=== PATIENT | male | born 1985 | race Caucasian/White ===

== ENCOUNTER 2019-11-18 14:23 | Inpatient (IN) | payer SELFPAY ==
[2019-11-18] VITALS (11 sets, daily range): BP systolic 129–162; BP diastolic 89–114; PULSE 76–100; RESP 17–21; TEMP 35.6–36.6; O2SAT 96–99; BMI 25.7
--- NOTE | 2019-11-18 14:50 | ED_ITS ---
HPI - Chest Pain General: Chief Complaint: Chest Pain Stated Complaint: cp Time Seen by Provider: 11/18/19 14:50 History of Present Illness: HPI narrative: pt states he started having severe epigastric and chest pain 4 hours ago while he was waking up from sleep. He states he drank a few shots of etoh this am. states pain is severe and burning and worse with movement. He made himself throw up which helped a little. No cough or fever or chills MD complaint: chest pain Onset (ago): hour(s) (4) Timing of current episode: constant Prior episodes: No Onset: during rest Pain location: substernal and epigastric Pain radiation: none Severity: severe Quality: heaviness and burning Relieving factors: nothing Exacerbating factors: movement Associated symptoms: Reports abdominal pain, nausea and vomiting (self induced); Deny dyspnea or fever(s) Treatment prior to arrival: none Review of Systems General: Reports: 10 or more systems reviewed and unremarkable except in HPI and below Const: Denies: fever, chills or fatigue ENMT: Denies: throat pain Card: Reports: chest pain; Denies: swelling of feet/ankles Resp: Denies: shortness of breath or productive cough GI: Reports: abdominal pain, nausea and vomiting (self induced) Musc: Denies: back pain or extremity swelling Skin/Breast: Denies: rash Neuro: Denies: headache, numbness in extremities or weakness in extremities [facility] ED PFSH: Social History Smoking and tobacco status: current every day smoker Supplemental [facility] Information: states he drinks alcohol daily and had a few shots this am Physical Exam Const: COMMON NORMALS: oriented x3 GENERAL APPEARANCE: cooperative; not in distress HENMT: COMMON NORMALS: normocephalic HEAD & SCALP: normal to inspection and normocephalic MOUTH: oral and palatal mucosa normal and lip normal THROAT: posterior oropharynx normal and tonsils normal Neck/C-Spine: COMMON NORMALS: full ROM, no lymphadenopathy, supple and no meningeal signs GENERAL: Yes normal visual inspection and Yes trachea midline Chest: COMMONS NORMALS: inspection of chest normal Resp: COMMON NORMALS: normal respiratory effort and clear to auscultation bilaterally EFFORT & INSPECTION: Yes able to speak in complete sentences and No respiratory distress AUSCULTATION: clear to auscultation bilaterally, no rales, no rhonchi and no wheezes Cardio: COMMON NORMALS: regular rate, regular rhythm, S1 normal heart sound, S2 normal heart sound and no murmurs RATE: regular rate RHYTHM: regular rhythm HEART SOUNDS: S1 normal and S2 normal PERIPHERAL PULSES: radial pulses present and dorsalis pedis pulses present GI: COMMON NORMALS: soft to palpation INSPECTION: Yes scar (midline (had tip of pancreas and spleen removed from trauma)) AUSCULTATION: Yes hypoactive bowel sounds PALPATION: Yes soft and Yes tender Details: RUQ and other (epigastric) RECTAL EXAM: Yes deferred : COMMON NORMALS: Yes no CVA tenderness BLADDER/KIDNEY EXAM: Yes no CVA tenderness Back/Pelvis: COMMON NORMALS: no CVA tenderness Extremity: COMMON NORMALS: normal to inspection, full ROM, normal capillary refill, no calf tenderness and no pedal edema Neuro: COMMON NORMALS: oriented x3, CN's II-XII intact bilaterally, moves all extremities and no focal motor deficits MENINGEAL SIGNS: Yes no meningeal signs Skin: COMMON NORMALS: no rashes or lesions noted GENERAL SKIN EXAM: no jose eduardo hes or lesions noted Course Vital Signs: Vital signs: Vital Signs Temperature 96.0 F L 11/18/19 14:47 Pulse Rate 80 11/18/19 15:39 Respiratory Rate 17 11/18/19 15:39 Blood Pressure 129/89 11/18/19 15:39 Pulse Oximetry 98 11/18/19 15:39 MDM - Chest Pain MDM Narrative: Medical decision making narrative: Pt has acute alcoholic pancreatitis, it is present on ct but no pseudocyst. His lipase is over 500 and lft's are elevated. I will admit him and keep him npo and will give him more pain meds as he has pain. Paged Dr Swann at [phone]. Dr Swann states she will admit Lab Data: Attestation: I reviewed the patient's lab results. Labs: Lab Results 11/18/19 11/18/19 11/18/19 Range/Units 15:30 15:30 15:30 WBC 13.2 H (4.0-10.0) 10^3/ uL RBC 5.16 (4.1-5.3) 10^6/u L Hgb 16.9 H (11.7-16.6) g/dL Hct 49.7 (42.0-52.0) % MCV 96.3 H (80-94) fL MCH 32.8 (28.0-34.0) pg MCHC 34.0 (30.0-36.0) g/dL RDW 15.6 H (12.1-15.1) % Plt Count 285 (130-400) 10^3/c mm MPV 9.0 (7.4-10.4) fL Neut % (Auto) 78.9 % Lymph % (Auto) 13.3 % [place] % (Auto) 6.9 % Eos % (Auto) 0.0 % Baso % (Auto) 0.4 % Neut # (Auto) 10.4 H (1.8-7.7) 10^3/u L Lymph # (Auto) 1.8 (0.8-4.8) 10^3/u L [place] # (Auto) 0.9 (0.2-0.9) 10^3/u L Eos # (Auto) 0.0 (0.0-0.8) 10^3/u L Baso # (Auto) 0.1 (0.0-0.1) 10^3/u L Nucleated RBC % (a uto) 0 % Nucleated RBCs # 0.0 /100WBC Sodium 142 (136-145) mmol/L Potassium 3.5 (3.5-5.1) mmol/L Chloride 100 (98-107) mmol/L Carbon Dioxide 26 (22-29) mmol/L Anion Gap 19.5 H (5-19) BUN 9 (6-20) mg/dL Creatinine 1.0 (0.7-1.2) mg/dL GFR Calculation 86.1 L (90-130) mL/min Glucose 150 H (65-115) mg/dL Calculated Osmolal ity 293 (285-295) mOsm/k g Calcium 9.5 (8.5-10.5) mg/dL Total Bilirubin 0.3 (0.15-1.2) mg/dL AST 104 H (0-40) U/L ALT 135 H (0-41) U/L Alkaline Phosphata se 122 (40-130) IU/L Troponin T Baselin e 6 (0-15) ng/mL Total Protein 7.7 (6.6-8.7) g/dL Albumin 5.0 (3.5-5.2) g/dL Globulin 2.7 (1.3-4.6) g/dL Lipase (13-60) U/L Ethyl Alcohol 169 H (0-10) mg/dL 11/18/19 Range/Units 15:30 WBC (4.0-10.0) 10^3/ uL RBC (4.1-5.3) 10^6/u L Hgb (11.7-16.6) g/dL Hct (42.0-52.0) % MCV (80-94) fL MCH (28.0-34.0) pg MCHC (30.0-36.0) g/dL RDW (12.1-15.1) % Plt Count (130-400) 10^3/c mm MPV (7.4-10.4) fL Neut % (Auto) % Lymph % (Auto) % [place] % (Auto) % Eos % (Auto) % Baso % (Auto) % Neut # (Auto) (1.8-7.7) 10^3/u L Lymph # (Auto) (0.8-4.8) 10^3/u L [place] # (Auto) (0.2-0.9) 10^3/u L Eos # (Auto) (0.0-0.8) 10^3/u L Baso # (Auto) (0.0-0.1) 10^3/u L Nucleated RBC % (a uto) % Nucleated RBCs # /100WBC Sodium (136-145) mmol/L Potassium (3.5-5.1) mmol/L Chloride (98-107) mmol/L Carbon Dioxide (22-29) mmol/L Anion Gap (5-19) BUN (6-20) mg/dL Creatinine (0.7-1.2) mg/dL GFR Calculation (90-130) mL/min Glucose (65-115) mg/dL Calculated Osmolal ity (285-295) mOsm/k g Calcium (8.5-10.5) mg/dL Total Bilirubin (0.15-1.2) mg/dL AST (0-40) U/L ALT (0-41) U/L Alkaline Phosphata se (40-130) IU/L Troponin T Baselin e (0-15) ng/mL Total Protein (6.6-8.7) g/dL Albumin (3.5-5.2) g/dL Globulin (1.3-4.6) g/dL Lipase 547 H (13-60) U/L Ethyl Alcohol (0-10) mg/dL Imaging Data^: CXR: Radiologist's impression: XRay Report Signed Patient: Elena Hernandez #: [id number] : 1985Acct#:[id number] Age/Sex: 34 / MADM Date: 11/18/19 Loc: ERRoom/Bed: Attending Dr: Ordering Provider/Ordering MD: Michelle Galvez DO Date of Service: 11/18/19 Procedure(s): XR chest 1V portable [id number] Accession Number(s): [id number] Report Number: [id number] WS: [id number] PORTABLE CHEST HISTORY: chest pain COMPARISON: 09/26/2017 Linear subsegmental areas of atelectasis at the lung bases. Otherwise lungs are clear. No pleural effusion or pneumothorax. Cardiac size: Normal. Mediastinum/Aorta: Normal mediastinum. Prior orthopedic fixation RIGHT clavicle. XR/XR chest 1V portable [id number] IMPRESSION: Unremarkable portable chest. Dictated By:Patricia Dove DO Signed By:Patricia Dove DOSigned Date/Time:11/18/[address] Abd/Pel: Radiologist's impression: CT Scan Report Signed Patient: Elena Hernandez #: [id number] : 1985Acct#:[id number] Age/Sex: 34 / MADM Date: 11/18/19 Loc: ERRoom/Bed: Attending Dr: Ordering Provider/Ordering MD: Michelle Galvez DO Date of Service: 11/18/19 Procedure(s): CT abdomen pelvis w con* [id number] Accession Number(s): [id number] Report Number: [id number] WS: [id number] CT ABDOMEN AND PELVIS WITH CONTRAST HISTORY: Abdominal pain and epigastric pain with nausea. TECHNIQUE: Imaging performed of the abdomen and pelvis with IV contrast. Single phase imaging of the abdomen. Coronal and sagittal reformats are submitted. All CT scans at [facility] use at least one of these dose optimization techniques: automated exposure control; mA and/or kV adjustment per patient size (includes targeted exams where dose is matched to clinical indication); or iterative reconstruction. IV CONTRAST: Omnipaque 300; 95 mL IV. Oral contrast: No DLP: 593.8 mGy.cm COMPARISON: 05/02/2017 Lower thorax: Lung bases are clear. Heart is normal size. No hiatal hernia. Liver/biliary system: Mild enlargement and hepatic steatosis. There is a small amount of perihepatic fluid. Portal vein is patent. No mass or biliary dilatation. Gallbladder: Normal. No gallstones or wall thickening. No pericholecystic fluid. Pancreas: Pancreas is enlarged and edematous. There is peripancreatic fluid and edema. No focal collection or pseudocyst or abscess. Surgical sutures near the distal pancreas. Spleen: Prior splenectomy. Adrenal glands: Normal. Right kidney: Normal. Left kidney: Normal. Aorta: Normal. Lymphadenopathy: None. Free fluid: There is a small amount of perihepatic ascites. Small amount of fluid surrounding the pancreas and within the lesser curvature of the stomach. There is mesenteric edema and stranding. GI tract: Prior appendectomy. No GI tract obstruction. Abdominal wall: Unremarkable abdominal wall. No hernia. Pelvis: Normal. Bones: Straightening of the normal lumbar lordosis. No osteoblastic or osteolytic bone disease. CT/CT abdomen pelvis w con* [id number] IMPRESSION: 1. Acute pancreatitis with a small amount of peripancreatic fluid and edema. No abscess or pseudocyst. 2. Perihepatic free fluid, small amount. 3. Hepatic steatosis and hepatomegaly. 4. Prior appendectomy. 5. Prior splenectomy. Dictated By:Patricia Dove DO Signed By:Patricia Dove DOSigned Date/Time:11/18/19 2076 EKG Data^: EKG 1: Attestation: I personally reviewed and interpreted this EKG as follows: EKG interpretation time: 15:18 Interpretation: nsr, rate 79, normal st segments Discharge Plan Discharge Clinical Impression: Elevated transaminase level Pancreatitis, alcoholic, acute Qualifiers: Acute pancreatitis complication: no infection or necrosis Qualified Code(s): K85.20 - Alcohol induced acute pancreatitis without necrosis or infection Condition: Stable Prescriptions: No Action No Known Home Medications RF: 0 Referrals: Mahamed Sales MD [Family Provider] - Coding Level of Care Code ED 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
--- NOTE | 2019-11-18 15:10 | ECG_ITS ---
Measurements Intervals [place] Rate: 97 P: 68 TX: 140 QRS: 77 QRSD: 105 T: 38 QT: 352 QTc: 449 SINUS RHYTHM Compared to ECG 09/26/2017 14:57:40 Sinus tachycardia no longer present Intraventricular conduction delay no longer present T-wave abnormality no longer present Electronically Signed On 11-18-2019 18:25:57 CDT by Shirley Pritchard M.D. [id number] f
--- NOTE | 2019-11-18 15:10 | XR_ITS ---
WS: [id number] PORTABLE CHEST HISTORY: chest pain COMPARISON: 09/26/2017 Linear subsegmental areas of atelectasis at the lung bases. Otherwise lungs are clear. No pleural eff usion or pneumothorax. Cardiac size: Normal. Mediastinum/Aorta: Normal mediastinum. Prior orthopedic fixation RIGHT clavicle. XR/XR chest 1V portable [id number] IMPRESSION: Unremarkable portable chest.
--- NOTE | 2019-11-18 15:11 | CT_ITS ---
WS: [id number] CT ABDOMEN AND PELVIS WITH CONTRAST HISTORY: Abdominal pain and epigastric pain with nausea. TECHNIQUE: Imaging performed of the abdomen and pelvis with IV contrast. Single phase imaging of the abdomen. Coronal and sagittal reformats are submitted. All CT scans at [facility] use at least one of these dose optimization techniques: automated exposure control; mA and/or kV adjustment per patient size (includes targeted exams where dose is matched to clinical indication); or iterativ e reconstruction. IV CONTRAST: Omnipaque 300; 95 mL IV. Oral contrast: No DLP: 593.8 mGy.cm COMPARISON: 05/02/2017 Lower thorax: Lung bases are clear. Heart is normal size. No hiatal hernia. Liver/biliary system: Mild enlargement and hepatic steatosis. There is a small amount of perihepatic fluid. Portal vein is patent. No mass or biliary dilatation. Gallbladder: Normal. No gallstones or wall thickening. No pericholecystic fluid. Pancreas: Pancreas is enlarged and edematous. There is peripancreatic fluid and edema. No focal colle ction or pseudocyst or abscess. Surgical sutures near the distal pancreas. Spleen: Prior splenectomy. Adrenal glands: Normal. Right kidney: Normal. Left kidney: Normal. Aorta: Normal. Lymphadenopathy: None. Free fluid: There is a small amount of perihepatic ascites. Small amount of fluid surrounding the guy creas and within the lesser curvature of the stomach. There is mesenteric edema and stranding. GI tract: Prior appendectomy. No GI tract obstruction. Abdominal wall: Unremarkable abdominal wall. No hernia. Pelvis: Normal. Bones: Straightening of the normal lumbar lordosis. No osteoblastic or osteolytic bone disease. CT/CT abdomen pelvis w con* [id number] IMPRESSION: 1. Acute pancreatitis with a small amount of peripancreatic fluid and edema. N o abscess or pseudocyst. 2. Perihepatic free fluid, small amount. 3. Hepatic steatosis and hepatomegaly. 4. Prior appendectomy. 5. Prior splenectomy.
[2019-11-18] MEDS: morphine 4 mg/mL SDV 1 mL IVP ×2 (15:22→18:04)
[2019-11-18] MEDS: nitroglycerin 1 gm/inch oint Pkt 1 INCH TOPICAL (15:25)
[2019-11-18] MEDS: ondansetron 2 mg/ML SDV 2 mL 4 MG IVP ×2 (15:25→21:42)
[2019-11-18] MEDS: sodium chloride 0.9% 1,000 ML 999 ML IV ×2 (15:30→18:05)
[2019-11-18 15:36] LABS: Basophils # 0.1 10^3/uL (0.0-0.1); Basophils % 0.4 %; Hematocrit 49.7 % (42.0-52.0); Hemoglobin 16.9 g/dL (11.7-16.6); Lymphocytes # 1.8 10^3/uL (0.8-4.8); Lymphocytes % 13.3 %; Mean Corpuscular Hemoglobin 32.8 pg (28.0-34.0); Mean Corpuscular Volume 96.3 fL (80-94); Monocytes # 0.9 10^3/uL (0.2-0.9); Monocytes % 6.9 %; Neutrophils # 10.4 10^3/uL (1.8-7.7); Neutrophils % 78.9 %; Nucleated Red Blood Cells % 0 %; Platelet Count 285 10^3/cmm (130-400); Red Blood Count 5.16 10^6/uL (4.1-5.3); Red Cell Distribution Width 15.6 % (12.1-15.1); White Blood Count 13.2 10^3/uL (4.0-10.0)
[2019-11-18 15:52] LABS: Alanine Aminotransferase 135 U/L (0-41); Alcohol Level 169 mg/dL (0-10); Alkaline Phosphatase 122 IU/L (40-130); Anion Gap 19.5 (5-19); Aspartate Amino Transferase 104 U/L (0-40); Blood Urea Nitrogen 9 mg/dL (6-20); Calcium 9.5 mg/dL (8.5-10.5); Carbon Dioxide 26 mmol/L (22-29); Chloride 100 mmol/L (98-107); Globulin 2.7 g/dL (1.3-4.6); Glomerular Filtration Rate 86.1 mL/min (90-130); Glucose 150 mg/dL (65-115); Osmolality Calculated 293 mOsm/kg (285-295); Potassium 3.5 mmol/L (3.5-5.1); Sodium 142 mmol/L (136-145); Total Bilirubin 0.3 mg/dL (0.15-1.2); Total Protein 7.7 g/dL (6.6-8.7)
[2019-11-18 15:53] LABS: Troponin(5th) Baseline 6 ng/mL (0-15)
[2019-11-18] MEDS: iohexol 300 mg/mL 100 mL Btl IV (15:54)
[2019-11-18] MEDS: lidocaine 2% viscous 15 ML, aluminum-mag hydrox-simethicon 30 ML, sucralfate oral liq 1 GM PO (16:35)
--- NOTE | 2019-11-18 17:10 | ECG_ITS ---
Measurements Intervals [place] Rate: 82 P: 59 IA: 147 QRS: 80 QRSD: 91 T: 53 QT: 371 QTc: 433 SINUS RHYTHM Compared to ECG 09/26/2017 14:57:40 Sinus tachycardia no longer present Intraventricular conduction delay no longer present T-wave abnormality no longer present Electronically Signed On 11-18-2019 18:27:52 CDT by Shirley Pritchard M.D. [id number] f
[2019-11-18 17:25] LABS: Lipase 547 U/L (13-60)
[2019-11-18 18:01] LABS: Troponin 5 2HR Delta 0 ABS# (0-10)
--- NOTE | 2019-11-18 18:23 | PC.NURSE ---
Nitro patch removed from left chest.
--- NOTE | 2019-11-18 19:55 | PM.HP ---
Providers/Chief Complaint Admitting Physician: Savana Swann MD Chief Complaint: cp History of Present Illness Elena Hernandez is a 34 year old male with a past medical history of alcohol abuse, alcohol withdrawal, alcohol withdrawal seizures, illicit drug abuse in the past, history of suicide attempt in the past, posttraumatic stress disease, history of fall from several stories in 2017 status post exploratory laparotomy, history of splenectomy, history of multiple fractures including cervical, thoracic, lumbar rib fractures associated with his fall many years ago who presents to the emergency room due to complaints of anterior chest pain and epigastric pain. 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 He reports nausea, he self-induced vomiting to feel better, last bowel movement was yesterday, denies falls, denies trauma, denies bloody stools, denies hemoptysis. Patient states that he drinks 1 to 2 pints of peppermint schnapps, or sour whiskey on a daily basis, has a history of alcohol withdrawal in the past, has a history of alcohol withdrawal seizures, has never been intubated in the past for alcohol withdrawal, has never had delirium tremens. Patient currently denies tremors, denies anxiety, denies palpitations, denies sweats, denies visual hallucinations, denies auditory hallucinations, denies tactile hallucinations, denies falls, denies injuries, denies headaches, denies blurry vision, denies suicidal ideation, denies homicidal ideation. When asked why does he drink a lot of alcohol, patient states that he has PTSD from his fall 2017, he was on medications, but he stopped taking them, and he lost his insurance and, cannot afford medications. Denies a history of pancreatitis in the past, denies any recent trauma, denies any recent steroid use, denies any history of cholelithiasis or right, right upper quadrant pain. Has a history of splenectomy, denies fevers, cough, shortness of breath, dysuria. Review of Systems Const: Denies: fever, chills, fatigue or malaise Eyes: Denies: change in vision or blurry vision ENMT: Denies: nasal congestion Card: Reports: chest pain Resp: Denies: shortness of breath, productive cough, non-productive cough or wheezing GI: Reports: abdominal pain and nausea; Denies: vomiting, vomiting blood, diarrhea, constipation, blood in stool or black tarry stool : Denies: flank pain, difficulty urinating, painful urination or urinary frequency Musc: Denies: neck pain or back pain Skin/Breast: Denies: rash Neuro: Denies: headache, dizziness or vertigo Psych: Denies: anxiety, depression, panic attacks, irritability, visual hallucinations, auditory hallucinations, tactile hallucinations, suicidal ideation or homicidal ideation Endo: Denies: excessive urination or excessive thirst Medications/Allergies Home Medications Medication Instructions Recorded Confirmed Last Taken Type No Known Home Medications 11/18/19 11/18/19 Unknown History Allergies Allergy/AdvReac Type Severity Reaction Status Date / Time No Known Allergies Allergy Verified 11/18/19 14:49 PFSH Acute PFSH: Medical History (Updated 11/18/19 @ 20:06 by Kaleb Juarez MD) C2 cervical fracture C7 cervical fracture History of suicide attempt L4 vertebral fracture Polysubstance abuse Surgical History (Updated 11/18/19 @ 20:10 by Kaleb Juarez MD) History of appendectomy History of splenectomy Family History (Updated 11/18/19 @ 20:06 by Kaleb Juarez MD) Other Diabetes Social History (Updated 11/18/19 @ 20:06 by Kaleb Juarez MD) Smoking and tobacco status: current every day smoker Alcohol intake: current Substance/Drug Use: former Vitals/I&O/Wt Last Vital Signs Temp 97.4 F L 11/18/19 18:33 Pulse 92 11/18/19 18:33 Resp 18 11/18/19 18:33 BP 162/110 11/18/19 18:33 Pulse Ox 97 11/18/19 18:33 11/18/19 11/18/19 11/18/19 06:59 14:59 22:59 Intake Total 1000 / 1000 Balance 1000 / 1000 Weight last 48 hrs Weight 83.915 kg Physical Exam Const: COMMON NORMALS: no apparent distress and oriented x3 GENERAL APPEARANCE: cooperative and comfortable HENMT: COMMON NORMALS: normocephalic HEAD & SCALP: normocephalic Eye: COMMON NORMALS: PERRL, EOMs intact bilaterally and no papilledema GENERAL EYE: normal appearance of both eyes PUPIL: Yes PERRL DIRECT OPHTHALMOSCOPY: Yes no papilledema Neck/C-Spine: COMMON NORMALS: full ROM, no lymphadenopathy, no JVD and thyroid normal THYROID: thyroid normal Lymph: LYMPHATIC: no lymphadenopathy noted Resp: COMMON NORMALS: normal respiratory effort, no retractions, no use of accessory muscles and clear to auscultation bilaterally AUSCULTATION: clear to auscultation bilaterally Cardio: COMMON NORMALS: no JVD, regular rate, regular rhythm, S1 normal heart sound, S2 normal heart sound, no gallops, no clicks and no murmurs RATE: regular rate RHYTHM: regular rhythm HEART SOUNDS: S1 normal and S2 normal GI: INSPECTION: Yes normal to inspection AUSCULTATION: Yes normoactive bowel sounds PALPATION: Yes soft, Yes tender, No guarding, No rigid and Yes no hepatosplenomegaly PERCUSSION: normal to percussion Extremity: COMMON NORMALS: normal to inspection, full ROM and no pedal edema Neuro: COMMON NORMALS: oriented x3, CN's II-XII intact bilaterally, moves all extremities and no focal motor deficits Psych: COMMON NORMALS: mental status grossly normal, thought process normal and cooperative THOUGHT PROCESS: normal thought process Data : 11/18/19 15:30 11/18/19 15:30 A&P Assessment and plan (1) Pancreatitis, alcoholic, acute: -Related to alcohol use -White blood cell count 13.2, neutrophilic 10.4, likely related to alcohol use -Blood glucose level 150, will check hemoglobin A1c, but likely related to pancreatitis -AST 104, ALT 135, lipase 547, ethanol 169 Plan: -Serial abdominal exams -Monitor electrolytes -Start on clear liquid diet -IV fluids, normal saline 100 cc an hour Status: Acute Qualifiers: Acute pancreatitis complication: no infection or necrosis Qualified Code(s): K85.20 - Alcohol induced acute pancreatitis without necrosis or infection (2) Elevated transaminase level: -AST 104, ALT 135, likely H=to alcohol use Status: Acute (3) PTSD (post-traumatic stress disorder): -Patient states that he does not want to take medications right now for his PTSD -He is open to having psychiatry see him, will likely have psychiatry see him tomorrow morning Status: Acute (4) Alcohol abuse: -Blood alcohol level 169 -Has a history of alcohol withdrawal, alcohol withdrawal seizures Plan: -MILTON's protocol -Last drink was 6 AM, monitor for the next every 2 hours -Monitor blood pressures, monitor heart rate, monitor for withdrawal seizures, seizure precautions, neuro checks -Banana bag, thiamine, folic acid Status: Acute (5) History of splenectomy: -Monitor for fevers, if so start him on antibiotic therapy Status: Acute Attestations Medical Necessity Statement*: Patient requires hospitalization, greater than 2 midnights, for alcoholic pancreatitis, transaminitis, alcohol abuse, concern for alcohol withdrawal Coding Level of Care Code Acute Buttermaker Continuous Churn for nancy Avery Diagnoses Pancreatitis, alcoholic, acute K85.20 Acute pancreatitis complication: no infection or necrosis Elevated transaminase level R74.0 PTSD (post-traumatic stress disorder) F43.10 Alcohol abuse F10.10 History of splenectomy Z90.81
[2019-11-18] MEDS: morphine 4 mg/mL SDV 1 mL 2 MG IVP (20:22)
[2019-11-18 20:56] LABS: Estmated Average Glucose 108; Hemoglobin A1C 5.4 % (4.0-6.0)
--- NOTE | 2019-11-18 21:10 | ECG_ITS ---
Measurements Intervals [place] Rate: 81 P: 54 MA: 137 QRS: 74 QRSD: 92 T: 38 QT: 353 QTc: 412 SINUS RHYTHM Compared to ECG 11/18/2019 17:37:03 No significant changes Electronically Signed On 11-19-2019 14:05:37 CDT by Zoe Bojorquez M.D. [id number]
[2019-11-18] MEDS: folic acid 1 MG, multivitamin inj 10 ML, thiamine 100 MG in sodium chloride 0.9% 1,000 ML 252.8 MG IV (21:22)
[2019-11-18] MEDS: sodium chloride 0.9% 1,000 ML 100 ML IV (21:24)
[2019-11-18] MEDS: enoxaparin 40 mg/0.4 mL Syringe SUBCUT (21:24)
[2019-11-18 21:58] LABS: Troponin 5 6HR Delta 0 ng/L (0-12)
[2019-11-18] MEDS: LORazepam 2 mg/mL INJ 1 mL IM (22:08)
[2019-11-18 22:09] LABS: C Reactive Protein 1.4 mg/L (0.0-4.9)
[2019-11-18 22:48] LABS: Add Urine Microscopic? YES; Bacteria Urine 1+; Bilirubin Urine Neg (NEGATIVE); Blood Urine Neg (Negative); Glucose Urine UA Norm (Normal); Ketones Urine Negative (Negative); Leukocyte Esterase Urine Negative (Negative); Mucus Urine 2+; Nitrate Urine Negative (Negative); Protein Urine 1+ (Negative); RBC Urine RARE /hpf (0-2); Squamous Epithelial Cell Urine RARE (0-5); Urine Appearance Clear (CLEAR); Urine Color Yellow (Yellow); Urobilinogen Urine Norm (Negative); WBC Urine RARE /hpf (0-5); pH Urine 5 (5-7)
[2019-11-19] VITALS (14 sets, daily range): BP systolic 133–169; BP diastolic 72–111; PULSE 80–102; RESP 16–20; TEMP 36.7–36.9; O2SAT 95–99
[2019-11-19] MEDS: morphine 4 mg/mL SDV 1 mL 2 MG IVP ×7 (00:31→21:27)
[2019-11-19] MEDS: ondansetron 2 mg/ML SDV 2 mL 4 MG IVP ×2 (00:32→08:59)
[2019-11-19 05:08] LABS: Basophils % 0.3 %; Eosinophils % 0.1 %; Hematocrit 45.2 % (42.0-52.0); Hemoglobin 15.2 g/dL (11.7-16.6); Lymphocytes # 1.7 10^3/uL (0.8-4.8); Lymphocytes % 15.3 %; Mean Corpuscular HGB Conc 33.6 g/dL (30.0-36.0); Mean Corpuscular Hemoglobin 32.3 pg (28.0-34.0); Mean Corpuscular Volume 96.2 fL (80-94); Mean Platelet Volume 9.1 fL (7.4-10.4); Neutrophils # 8.5 10^3/uL (1.8-7.7); Nucleated Red Blood Cells % 0 %; Platelet Count 250 10^3/cmm (130-400); Red Cell Distribution Width 15.3 % (12.1-15.1); White Blood Count 11.3 10^3/uL (4.0-10.0)
[2019-11-19 05:27] LABS: Alanine Aminotransferase 84 U/L (0-41); Albumin Level 3.8 g/dL (3.5-5.2); Alkaline Phosphatase 105 IU/L (40-130); Anion Gap 12.8 (5-19); Aspartate Amino Transferase 45 U/L (0-40); Blood Urea Nitrogen 7 mg/dL (6-20); Calcium 8.7 mg/dL (8.5-10.5); Carbon Dioxide 28 mmol/L (22-29); Chloride 99 mmol/L (98-107); Globulin 2.5 g/dL (1.3-4.6); Glomerular Filtration Rate 129.9 mL/min (90-130); Glucose 132 mg/dL (65-115); Magnesium 1.4 mg/dL (1.7-2.3); Osmolality Calculated 280 mOsm/kg (285-295); Phosphorus 2.7 mg/dL (2.5-4.5); Potassium 3.8 mmol/L (3.5-5.1); Sodium 136 mmol/L (136-145); Total Bilirubin 0.8 mg/dL (0.15-1.2); Total Protein 6.3 g/dL (6.6-8.7)
[2019-11-19] MEDS: multivitamin therapeutic Tablet 1 TAB PO (09:04)
[2019-11-19] MEDS: thiamine 100 mg Tablet PO (09:04)
[2019-11-19] MEDS: folic acid 1 mg Tablet PO (09:04)
--- NOTE | 2019-11-19 09:46 | P.PN_ITS ---
Subjective Subjective: Interval history: Elena reports his abdomen still hurts, and he is still nauseated. He denies any homicidal or suicidal ideation. He reports he has medicine at home for depression, but he does not take it as he does not want to. He knows alcohol is impacting his health greatly. Medications: Reviewed: Yes Vitals/I&O/Wt Last Vital Signs Temp 98.4 F 11/19/19 07:48 Pulse 96 11/19/19 09:20 Resp 18 11/19/19 09:03 BP 146/101 11/19/19 07:48 Pulse Ox 96 11/19/19 09:20 11/18/19 11/19/19 11/19/19 22:59 06:59 14:59 Intake Total 1003.333 / 1003.333 0 / 1003.333 Output Total 150 / 150 300 / 450 400 / 400 Balance 853.333 / 853.333 -300 / 553.333 -400 / -400 Weight last 48 hrs Weight 83.915 kg Physical Exam Narrative: EXAM NARRATIVE: General exam is a sleepy white male in no apparent distress Cardiovascular regular rate and rhythm without murmur Lungs clear Abdomen is soft, tenderness noted in the epigastric area. Positive bowel sounds. Large scar noted Extremities no cyanosis clubbing or edema. Data : 11/19/19 04:50 11/19/19 04:50 A&P Assessment and plan (1) Pancreatitis, alcoholic, acute: Change to n.p.o. as patient reports still with significant pain, nausea. Continue fluids, increase slightly Pain control with morphine Repeat laboratory tomorrow Status: Acute Qualifiers: Acute pancreatitis complication: no infection or necrosis Qualified Code(s): K85.20 - Alcohol induced acute pancreatitis without necrosis or infection (2) Elevated transaminase level: Likely secondary to alcohol use. Check hepatitis panel. Status: Acute (3) PTSD (post-traumatic stress disorder): No homicidal or suicidal ideation. Does not want psychiatry to visit with him currently. Does not want to take any medications for his condition. Status: Acute (4) Alcohol abuse: Alcohol withdrawal precautions [facility] protocol Continue thiamine, folate Status: Acute (5) History of splenectomy: Status: Acute Attestations Medical Necessity Statement*: Needs continued hospital stay for supportive care secondary to alcohol induced pancreatitis. Coding Level of Care Code Acute Educational Resource Coordinator for [facility] Fwd Diagnoses Pancreatitis, alcoholic, acute K85.20 Acute pancreatitis complication: no infection or necrosis Elevated transaminase level R74.0 PTSD (post-traumatic stress disorder) F43.10 Alcohol abuse F10.10 History of splenectomy Z90.81
[2019-11-19 10:01] LABS: Lipase 296 U/L (13-60)
[2019-11-19] MEDS: magnesium sulfate premix 2 GM/50 ML PIGGYBACK IV (10:22)
[2019-11-19 11:11] LABS: Hepatitis A Antibody IgM. Non-Reactive (Nonreactive); Hepatitis B Core IgM Non-Reactive (Nonreactive); Hepatitis B Surface Antigen. Non-Reactive (Nonreactive); Hepatitis C Virus Antibody Non-Reactive (Nonreactive)
[2019-11-19] MEDS: sodium chloride 0.9% 1,000 ML 100 ML IV ×2 (11:39→20:56)
--- NOTE | 2019-11-19 14:32 | PC.CHAP ---
Pastoral Care Encounter/Spiritual Assessment Type of Contact [] Declined ethologist visit [] Patient/Family/Request visit [] Outpatient visit [] Follow-up visit [] Physician referral [] Code/Alert [] Routine visit [] Staff referral [] Actively dying [X] Patient sleeping [] Family support [] [] Out of room [] Palliative care [] [] Receiving care in room [] Pre-surgical visit [] Trauma [] Long length of stay [] ICU visit [] Other: Relational/Emotional Strength [] Patient feels connected with others/family/visitors/staff [] Distress [] Loneliness/isolation [] Abandonment Spirituality of Patient [] Person of Mary Lou [] Attends Sikh of their Mary Lou [] Believes in Prayer [] Reads Bible or Restoration materials [] There are Spiritual issues to be addressed Car Cleaner Interventions [] Prayer [] Active listening [] Non-anxious presence [] Spiritual/emotional support [] Crisis/trauma care [] Spiritual counseling [] Bereavement support [] Provided bereavement packet [] Provided Bible/devotional materials [] Provided toy/stuffed animal, coloring book to patient or family member [] Provided Communion [] Anointing/[place] [] Salvation [] Completed spiritual assessment [] Other: Impact on Illness or Injury [] Angry [] Fearful [] Anxious [] Often cries [] Exhaustion [] Unable to work [] Unable to attend sikhism [] Unable to walk/stand [] Unable to read [] Unable to drive [] Unable to eat/drink [] Unable to sleep [] Unable to be with family [] Patient intubated [] Other: Summary FOLLOW UP Time spent with patient
[2019-11-19] MEDS: LORazepam 2 mg/mL INJ 1 mL 1 MG IVP (15:57)
--- NOTE | 2019-11-19 20:13 | USR_ITS ---
PROCEDURE INFORMATION: Exam: US Abdomen Limited, Right Upper Quadrant Exam date and time: 11/19/2019 9:07 AM Age: 34 years old Clinical indication: Abdominal pain; Generalized; Additional info: Hepatic steatosis TECHNIQUE: Imaging protocol: Real-time ultrasound of the abdomen with image documentation. Examination was focused on the right upper quadrant. COMPARISON: US abdomen limited [id number] 03/26/2017 11:18 PM FINDINGS: Liver: No focal hepatic mass. Gallbladder: Low level echoes in the gallbladder believed be artifactual. No shadowing calculi, wall edema, or pericholecystic fluid. Technologist reported negative sonographic Hayes sign. Common bile duct: Normal caliber of the incompletely visualized common bile duct measuring 3 mm in diameter. Pancreas: Obscuration of the pancreas by bowel gas. Right kidney: Normal right renal morphology. No hydronephrosis. Inferior vena cava: Unremarkable IVC. Intraperitoneal space: Intraperitoneal fluid . US/US liver [id number] IMPRESSION: Intraperitoneal fluid .
[2019-11-19] MEDS: enoxaparin 40 mg/0.4 mL Syringe SUBCUT (20:56)
[2019-11-20] VITALS (11 sets, daily range): BP systolic 131–167; BP diastolic 72–99; PULSE 83–109; RESP 17–20; TEMP 36.6–37.9; O2SAT 96–98
[2019-11-20] MEDS: morphine 4 mg/mL SDV 1 mL 2 MG IVP ×5 (03:25→22:24)
[2019-11-20] MEDS: sodium chloride 0.9% 1,000 ML 100 ML IV ×2 (03:30→12:38)
[2019-11-20 05:12] LABS: Basophils % 0.2 %; Eosinophils % 0.1 %; Hematocrit 43.6 % (42.0-52.0); Lymphocytes # 1.9 10^3/uL (0.8-4.8); Lymphocytes % 10.7 %; Mean Corpuscular HGB Conc 34.4 g/dL (30.0-36.0); Mean Corpuscular Hemoglobin 33.9 pg (28.0-34.0); Mean Corpuscular Volume 98.4 fL (80-94); Mean Platelet Volume 9.5 fL (7.4-10.4); Monocytes # 1.1 10^3/uL (0.2-0.9); Monocytes % 6.3 %; Neutrophils # 14.4 10^3/uL (1.8-7.7); Neutrophils % 81.8 %; Nucleated Red Blood Cells % 0 %; Platelet Count 226 10^3/cmm (130-400); Red Blood Count 4.43 10^6/uL (4.1-5.3); Red Cell Distribution Width 15.1 % (12.1-15.1); White Blood Count 17.5 10^3/uL (4.0-10.0)
[2019-11-20 05:33] LABS: Alanine Aminotransferase 56 U/L (0-41); Albumin Level 3.5 g/dL (3.5-5.2); Alkaline Phosphatase 97 IU/L (40-130); Aspartate Amino Transferase 29 U/L (0-40); Blood Urea Nitrogen 6 mg/dL (6-20); Carbon Dioxide 23 mmol/L (22-29); Chloride 98 mmol/L (98-107); Glomerular Filtration Rate 111.3 mL/min (90-130); Glucose 98 mg/dL (65-115); Magnesium 1.8 mg/dL (1.7-2.3); Osmolality Calculated 274 mOsm/kg (285-295); Sodium 134 mmol/L (136-145); Total Bilirubin 0.9 mg/dL (0.15-1.2); Total Protein 6.5 g/dL (6.6-8.7)
[2019-11-20 05:37] LABS: Lipase 110 U/L (13-60)
[2019-11-20] MEDS: multivitamin therapeutic Tablet 1 TAB PO (08:19)
[2019-11-20] MEDS: thiamine 100 mg Tablet PO (08:19)
[2019-11-20] MEDS: folic acid 1 mg Tablet PO (08:19)
--- NOTE | 2019-11-20 09:03 | P.PN_ITS ---
Subjective Subjective: Interval history: Elena reports he feels little bit better. Abdomen is still quite tender. Would like to try some liquids. Not nauseated anymore. Medications: Reviewed: Yes Vitals/I&O/Wt Last Vital Signs Temp 98.9 F 11/20/19 07:57 Pulse 109 H 11/20/19 07:57 Resp 20 H 11/20/19 08:18 BP 131/78 11/20/19 07:57 Pulse Ox 98 11/20/19 07:57 11/19/19 11/20/19 11/20/19 22:59 06:59 14:59 Intake Total 928.333 / 1883.333 656.667 / 2540.000 350 / 350 Output Total 1050 / 2350 800 / 3150 300 / 300 Balance -121.667 / -466.667 -143.333 / -610.000 50 / 50 Weight last 48 hrs Weight 83.915 kg Physical Exam Narrative: EXAM NARRATIVE: General exam is a sleepy white male in no apparent distress Cardiovascular regular rate and rhythm without murmur Lungs clear Abdomen is soft, tenderness noted in the epigastric area. Positive bowel sounds. Large scar noted Extremities no cyanosis clubbing or edema. Data : 11/20/19 04:52 11/20/19 04:52 A&P Assessment and plan (1) Pancreatitis, alcoholic, acute: Start clear liquids Change morphine to every 4 hours as needed Lipase improved Status: Acute Qualifiers: Acute pancreatitis complication: no infection or necrosis Qualified Cod e(s): K85.20 - Alcohol induced acute pancreatitis without necrosis or infection (2) Elevated transaminase level: Likely secondary to alcohol use. Hepatitis panel negative Transaminitis level decreasing Status: Acute (3) PTSD (post-traumatic stress disorder): No homicidal or suicidal ideation. Does not want psychiatry to visit with him currently. Does not want to take any medications for his condition. Status: Acute (4) Alcohol abuse: Alcohol withdrawal precautions [facility] protocol Continue thiamine, folate Status: Acute (5) History of splenectomy: Status: Acute Attestations Medical Necessity Statement*: Needs continued hospitalization for close monitoring secondary to acute pancreatitis with previous inability to take p.o. secondary to recalcitrant nausea. Coding Level of Care Code Acute Web Ui Developer for [facility]o Avery Diagnoses Pancreatitis, alcoholic, acute K85.20 Acute pancreatitis complication: no infection or necrosis Elevated transaminase level R74.0 PTSD (post-traumatic stress disorder) F43.10 Alcohol abuse F10.10 History of splenectomy Z90.81
[2019-11-20] MEDS: ondansetron 2 mg/ML SDV 2 mL 4 MG IVP (16:10)
[2019-11-20] MEDS: enoxaparin 40 mg/0.4 mL Syringe SUBCUT (22:25)
[2019-11-21] VITALS (11 sets, daily range): BP systolic 130–151; BP diastolic 77–106; PULSE 72–104; RESP 17–20; TEMP 36.7–37.2; O2SAT 96–99
[2019-11-21] MEDS: sodium chloride 0.9% 1,000 ML 100 ML IV ×3 (02:24→17:16)
[2019-11-21 06:20] LABS: Basophils % 0.1 %; Eosinophils # 0.1 10^3/uL (0.0-0.8); Eosinophils % 0.7 %; Hemoglobin 14.3 g/dL (11.7-16.6); Lymphocytes # 2.8 10^3/uL (0.8-4.8); Lymphocytes % 17.3 %; Mean Corpuscular Hemoglobin 33.1 pg (28.0-34.0); Mean Corpuscular Volume 97.2 fL (80-94); Mean Platelet Volume 9.8 fL (7.4-10.4); Monocytes # 1.1 10^3/uL (0.2-0.9); Monocytes % 6.8 %; Neutrophils # 11.9 10^3/uL (1.8-7.7); Neutrophils % 74.7 %; Nucleated Red Blood Cells % 0 %; Platelet Count 222 10^3/cmm (130-400); Red Blood Count 4.32 10^6/uL (4.1-5.3); Red Cell Distribution Width 14.9 % (12.1-15.1)
[2019-11-21 06:36] LABS: Lipase 28 U/L (13-60)
[2019-11-21 06:41] LABS: Alanine Aminotransferase 42 U/L (0-41); Albumin Level 3.7 g/dL (3.5-5.2); Alkaline Phosphatase 99 IU/L (40-130); Anion Gap 17.9 (5-19); Aspartate Amino Transferase 22 U/L (0-40); Blood Urea Nitrogen 6 mg/dL (6-20); Calcium 9.4 mg/dL (8.5-10.5); Carbon Dioxide 25 mmol/L (22-29); Chloride 98 mmol/L (98-107); Globulin 3.4 g/dL (1.3-4.6); Glomerular Filtration Rate 129.9 mL/min (90-130); Glucose 95 mg/dL (65-115); Magnesium 2.2 mg/dL (1.7-2.3); Osmolality Calculated 280 mOsm/kg (285-295); Phosphorus 2.2 mg/dL (2.5-4.5); Potassium 3.9 mmol/L (3.5-5.1); Sodium 137 mmol/L (136-145); Total Bilirubin 0.6 mg/dL (0.15-1.2); Total Protein 7.1 g/dL (6.6-8.7)
[2019-11-21] MEDS: morphine 4 mg/mL SDV 1 mL 2 MG IVP ×3 (07:50→17:20)
[2019-11-21] MEDS: multivitamin therapeutic Tablet 1 TAB PO (07:51)
[2019-11-21] MEDS: thiamine 100 mg Tablet PO (07:51)
[2019-11-21] MEDS: folic acid 1 mg Tablet PO (07:51)
--- NOTE | 2019-11-21 09:54 | PC.CHAP ---
Pastoral Care Encounter/Spiritual Assessment Type of Contact [] Declined cheese cook visit [] Patient/Family/Request visit [] Outpatient visit [x] Follow-up visit [] Physician referral [] Code/Alert [] Routine visit [] Staff referral [] Actively dying [] Patient sleeping [] Family support [] [] Out of room [] Palliative care [] [] Receiving care in room [] Pre-surgical visit [] Trauma [] Long length of stay [] ICU visit [] Other: Relational/Emotional Strength [] Patient feels connected with others/family/visitors/staff [] Distress [] Loneliness/isolation [] Abandonment Spirituality of Patient [] Person of Mary Lou [] Attends Jehovah'S Witness of their Mary Lou [x] Believes in Prayer [] Reads Bible or Alevism materials [] There are Spiritual issues to be addressed Shoe Polisher Interventions [x] Prayer [] Active listening [] Non-anxious presence [] Spiritual/emotional support [] Crisis/trauma care [] Spiritual counseling [] Bereavement support [] Provided bereavement packet [] Provided Bible/devotional materials [] Provided toy/stuffed animal, coloring book to patient or family member [] Provided Communion [] Anointing/[place] [] Salvation [x] Completed spiritual assessment [] Other: Impact on Illness or Injury [] Angry [] Fearful [] Anxious [] Often cries [] Exhaustion [] Unable to work [] Unable to attend scientologist [] Unable to walk/stand [] Unable to read [] Unable to drive [] Unable to eat/drink [] Unable to sleep [] Unable to be with family [] Patient intubated [] Other: Summary Patient resting well. Time spent with patient 10 min
--- NOTE | 2019-11-21 12:28 | USCV_ITS ---
Elena Hernandez Age: 34 Gender: M : 1985 Exam Date: 11/21/2019 13:31 Ordering Phys: Rosanne Damon MD Technologist: Amelie Shook Exam Location: [facility] – [place] Indication: SWELLING HISTORY: Upper extremity swelling. PROCEDURES: Venous duplex imaging was performed in only the left upper extremity. The following venous structures were evaluated: internal jugular vein, subclavian vein, axillary vein, and brachial veins. In addition, the basilic vein, cephalic vein, radial vein, and ulnar vein. Serial compression, augmentation maneuvers, and spectral Doppler flow evaluation were performed. FINDINGS: Normal 2-D, color Doppler and phasicity noted in the left upper extremity venous system extending from the left internal jugular vein through the main forearm. No thrombosis or occlusion noted. CONCLUSIONS No evidence of thrombus of the left upper extremity veins. Maicol Randolph MD (Electronically Signed) Final Date: 21 November 2019 15:37 S
--- NOTE | 2019-11-21 14:45 | PM.PN ---
Subjective Subjective: Interval history: Abdominal pain is better today. Hemodynamically stable. White blood cell count still at 16. Left-sided IV after removal was noted to have red and warm. Tolerated clear liquid diet. Medications: Reviewed: Yes Vitals/I&O/Wt Last Vital Signs Temp 98.8 F 11/21/19 11:28 Pulse 87 11/21/19 11:28 Resp 18 11/21/19 11:58 BP 139/102 11/21/19 11:28 Pulse Ox 98 11/21/19 11:58 11/20/19 11/21/19 11/21/19 22:59 06:59 14:59 Intake Total 2160 / 3903.333 100 / 4003.333 861.667 / 861.667 Output Total 950 / 2100 425 / 425 Balance 1210 / 1803.333 100 / 1903.333 436.667 / 436.667 Physical Exam Narrative: EXAM NARRATIVE: GEN: Awake, alert and oriented, no acute distress CVS: S1S2 N RS: CTA B/L Abd: Soft, nt/nd , bs+ TIN POT OPERATOR: no focal neuro deficits Data : 11/21/19 05:46 11/21/19 05:46 A&P Assessment and plan (1) Pancreatitis, alcoholic, acute: Advance diet to full liquid today. Change morphine to every 4 hours as needed. Add Toradol for pain control as patient would like to avoid opiates. Clinically pancreatitis appears to be improving, however given that patient had a temperature of 100.4 yesterday and also with persistently elevated white count, would like to see a downward trend before discharge. Patient is also asplenic which puts him at a higher risk of systemic infection. We will check blood cultures. If continues to have fever or persistently increasing white blood cell count, we will likely rescan the abdomen to make sure no signs of necrotizing pancreatitis. Fever may additionally be related to superficial thrombophlebitis noted on the left upper cuboidal fossa today. Will check ultrasound to rule out underlying DVT. Patient denies any history of current IV drug use, however reports drug use 12 years ago. Has a past history of MRSA bloodstream infection after a traumatic injury around 12 years ago. Status: Acute Qualifiers: Acute pancreatitis complication: no infection or necrosis Qualified Code(s): K85.20 - Alcohol induced acute pancreatitis without necrosis or infection (2) Elevated transaminase level: Likely secondary to alcohol use. Hepatitis panel negative Transaminitis level decreasing Status: Acute (3) PTSD (post-traumatic stress disorder): No homicidal or suicidal ideation. Does not want psychiatry to visit with him currently. Does not want to take any medications for his condition. Status: Acute (4) Alcohol abuse: Alcohol withdrawal precautions [facility] protocol Continue thiamine, folate Status: Acute (5) History of splenectomy: Status: Acute Attestations Medical Necessity Statement*: Improving clinically from a pancreatitis perspective. Needs continued monitoring for fever and elevated white blood cell count. Coding Level of Care Code Acute Driller Multiple Spindle for Marko Avery Diagnoses Pancreatitis, alcoholic, acute K85.20 Acute pancreatitis complication: no infection or necrosis Elevated transaminase level R74.0 PTSD (post-traumatic stress disorder) F43.10 Alcohol abuse F10.10 History of splenectomy Z90.81
[2019-11-21] MEDS: ketorolac 30 mg/mL INJ 15 MG IVP ×2 (14:50→22:54)
[2019-11-21] MEDS: enoxaparin 40 mg/0.4 mL Syringe SUBCUT (22:54)
[2019-11-22] VITALS (7 sets, daily range): BP systolic 125–143; BP diastolic 78–92; PULSE 67–82; RESP 16–18; TEMP 36.4–37.1; O2SAT 98–99
[2019-11-22] MEDS: morphine 4 mg/mL SDV 1 mL 2 MG IVP (03:35)
[2019-11-22] MEDS: sodium chloride 0.9% 1,000 ML 100 ML IV (03:36)
[2019-11-22] MEDS: multivitamin therapeutic Tablet 1 TAB PO (08:05)
[2019-11-22] MEDS: folic acid 1 mg Tablet PO (08:05)
[2019-11-22] MEDS: thiamine 100 mg Tablet PO (08:05)
[2019-11-22] MEDS: ketorolac 30 mg/mL INJ 15 MG IVP (08:06)
[2019-11-22 09:28] LABS: Basophils % 0.5 %; Eosinophils # 0.2 10^3/uL (0.0-0.8); Hematocrit 41.5 % (42.0-52.0); Hemoglobin 13.9 g/dL (11.7-16.6); Lymphocytes # 2.4 10^3/uL (0.8-4.8); Lymphocytes % 30.6 %; Mean Corpuscular HGB Conc 33.5 g/dL (30.0-36.0); Mean Corpuscular Hemoglobin 33.5 pg (28.0-34.0); Mean Platelet Volume 9.6 fL (7.4-10.4); Monocytes # 0.7 10^3/uL (0.2-0.9); Neutrophils # 4.4 10^3/uL (1.8-7.7); Neutrophils % 56.6 %; Nucleated Red Blood Cells % 0 %; Platelet Count 260 10^3/cmm (130-400); Red Blood Count 4.15 10^6/uL (4.1-5.3); Red Cell Distribution Width 14.9 % (12.1-15.1); White Blood Count 7.8 10^3/uL (4.0-10.0)
[2019-11-22 09:42] LABS: Alanine Aminotransferase 41 U/L (0-41); Albumin Level 3.2 g/dL (3.5-5.2); Alkaline Phosphatase 86 IU/L (40-130); Anion Gap 13.6 (5-19); Aspartate Amino Transferase 34 U/L (0-40); Blood Urea Nitrogen 8 mg/dL (6-20); Calcium 9.2 mg/dL (8.5-10.5); Carbon Dioxide 25 mmol/L (22-29); Chloride 100 mmol/L (98-107); Globulin 2.8 g/dL (1.3-4.6); Glomerular Filtration Rate 129.9 mL/min (90-130); Glucose 151 mg/dL (65-115); Osmolality Calculated 279 mOsm/kg (285-295); Potassium 3.6 mmol/L (3.5-5.1); Sodium 135 mmol/L (136-145); Total Bilirubin 0.5 mg/dL (0.15-1.2)
--- NOTE | 2019-11-22 10:55 | P.DS_ITS ---
Discharge Providers Date of Admission: 11/18/19 17:53 Date of Discharge: November 22, 2019 Attending Provider at Admission: Kaleb Juarez MD Attending Provider at Discharge: Rosanne Damon MD Diagnoses at Discharge Discharge Diagnosis (1) Pancreatitis, alcoholic, acute: Status: Acute Qualifiers: Acute pancreatitis complication: no infection or necrosis Qualified Code(s): K85.20 - Alcohol induced acute pancreatitis without necrosis or infection (2) Elevated transaminase level: Status: Acute (3) PTSD (post-traumatic stress disorder): Status: Acute (4) Alcohol abuse: Status: Acute (5) History of splenectomy: Status: Acute Reason for Visit Reason for Visit: Reason For Visit: cp Hospital Course Discharge Summary: Elena Hernandez is a 34 year old male with a past medical history of alcohol abuse, alcohol withdrawal, alcohol withdrawal seizures, illicit drug abuse in the past, history of suicide attempt in the past, posttraumatic stress disease, history of fall from several stories in 2017 status post exploratory laparotomy, history of splenectomy, history of multiple fractures including cervical, thoracic, lumbar rib fractures associated with his fall many years ago who presents to the emergency room due to complaints of anterior chest pain and epigastric pain. CT abdomen showed peripancreatic fluid and edema. No abscess or pseudocyst. He had a one time fever of 100.3F, which resolved spontaneously. Blood culture was negative. Leukocytosis was peak at 17, trended down to 7.8 upon discharge. he was monitored closely off antiobiotics and improved significantly. At time of discharge, he is able to tolerate a regular soft diet. Nausea has resolved. He has been instructed to return to ER in case of worsening pain, nausea or vomtiting. Also counselled to get post splenectomy vaccinations as an outpatient with PMD (states this was recommended post procedure but he did not follow up for the same). Pneumococcal vaccine (23 valent) has been given at discharge. He will further need hemophilus B and meningocococcal vaccines as outpatient. Physical Exam Narrative: EXAM NARRATIVE: GEN: Awake, alert and oriented, no acute distress CVS: S1S2 N RS: CTA B/L except crackles over RUL Abd: Soft, nt/nd , bs+ ASSEMBLER CHASSIS: no focal neuro deficits Discharge Data Data Completed and Pending: Completed Studies During Hospitalization Category Date Time Status CT abdomen pelvis w con* [id number] Stat Cat Scan 11/18/19 15:11 Completed XR chest 1V sandra ble [id number] Stat Exams 11/18/19 15:10 [place] [id number] Routin e Ultrasound 11/21/19 12:28 Completed US liver [id number] Ro utine Ultrasound 11/19/19 20:13 Completed Pending at discharge Category Date Time Status Blood Culture Sta t Lab 11/21/19 11:44 Results C Reactive Protei n Routine Lab 11/18/19 17:37 Results Procalcitonin Rou margarita Lab 11/18/19 17:37 Results Vitamin B1(Thiami n) Plas/Ser Routin e Lab 11/18/19 21:39 Received Vitamin B12 Routi ne Lab 11/18/19 17:37 Results Labs from last 24 hours 11/22/19 11/22/19 09:00 09:00 WBC 7.8 RBC 4.15 Hgb 13.9 Hct 41.5 L MCV 100.0 H MCH 33.5 MCHC 33.5 RDW 14.9 Plt Count 260 MPV 9.6 Neut % (Auto) 56.6 Lymph % (Auto) 30.6 Crane % (Auto) 9.0 Eos % (Auto) 3.0 Baso % (Auto) 0.5 Neut # (Auto) 4.4 Lymph # (Auto) 2.4 Crane # (Auto) 0.7 Eos # (Auto) 0.2 Baso # (Auto) 0.0 Nucleated RBC % (a uto) 0 Nucleated RBCs # 0.0 Sodium 135 L Potassium 3.6 Chloride 100 Carbon Dioxide 25 Anion Gap 13.6 BUN 8 Creatinine 0.7 GFR Calculation 129.9 Glucose 151 H Calculated Osmolal ity 279 L Calcium 9.2 Total Bilirubin 0.5 AST 34 ALT 41 Alkaline Phosphata se 86 Total Protein 6.0 L Albumin 3.2 L Globulin 2.8 Vitals: Last Vital Signs Temp 98.1 F 11/22/19 07:43 Pulse 72 11/22/19 09:00 Resp 16 11/22/19 07:43 BP 125/78 11/22/19 07:43 Pulse Ox 98 11/22/19 09:00 Discharge Plan Discharge Patient Disposition: Home, Self-Care Condition: Stable Prescriptions: New ketorolac 10 mg tablet 10 mg PO Q12H PRN (Reason: pain) 5 Days Qty: 14 RF: 0 ondansetron 4 mg tablet,disintegrating 4 mg PO BID PRN (Reason: nausea and vomiting) 7 Days Qty: 14 RF: 0 folic acid 1 mg Tablet 1 mg PO DAILY Qty: 0 RF: 0 Thera 400 mcg Tablet 1 tab PO DAILY Qty: 0 RF: 0 thiamine mononitrate (vit B1) [Vitamin B-1 (mononitrate)] 100 mg Tablet 100 mg PO DAILY Qty: 0 RF: 0 acetaminophen 325 mg Tablet 650 mg PO Q6H PRN (Reason: Mild/Mod Pain Or Temp >/= 101) Qty: 0 RF: 0 No Action No Known Home Medications RF: 0 Discharge Orders: Discharge Order (Routine); Ordered 11/22/19 Ordered By: Rosanne Damon Referrals: Mahamed Sales MD [Family Provider] - 2 weeks Discharge Diet: Advance as tolerated and GI Soft Discharge Activity: Resume usual activity Activity Restrictions/Additional Instructions: retrun to ER in case of worsening pain, nausea, vomiting, fever. Avoid alcohol intake, recommend AA Discharge Attestations Time Spent in Discharge Care*: greater than 30 min Quality Metrics Clinical Quality Measures During this hospital stay, did patient experience: None Coding Level of Care Code Acute Canal Equipment Mechanic for g Fwd Diagnoses Pancreatitis, alcoholic, acute K85.20 Acute pancreatitis complication: no infection or necrosis Elevated transaminase level R74.0 PTSD (post-traumatic stress disorder) F43.10 Alcohol abuse F10.10 History of splenectomy Z90.81
[2019-11-23 03:28] LABS: Vitamin B12 865 pg/mL (232-1245)
[2019-11-25 11:25] LABS: Vitamin B1(Thiamin) Plas/Ser >1200 nmol/L (8-30)
== END 2019-11-22 11:55 | disposition home or self-care (01) | DRG 440 ==
LOC: ER 17:47 → MEDSURG 18:07
PROVIDERS: Family Medicine; Internal Medicine; Admitting Provider Family Medicine; Emergency Provider Emergency Medicine; Family Provider Family Medicine; Visit Provider Student in an Organized Health Care Education/Training Program
DX: K85.20 Alcohol induced acute pancreatitis without necrosis or infection (principal); F10.229 Alcohol dependence with intoxication, unspecified; Y90.6 Blood alcohol level of 120-199 mg/100 ml; F43.10 Post-traumatic stress disorder, unspecified; Z91.81 History of falling; Z90.81 Acquired absence of spleen; F17.210 Nicotine dependence, cigarettes, uncomplicated; Z91.5 Personal history of self-harm; Z23 Encounter for immunization; M79.89 Other specified soft tissue disorders; S12.100S Unspecified displaced fracture of second cervical vertebra, sequela; S12.600S Unspecified displaced fracture of seventh cervical vertebra, sequela; S32.049S Unspecified fracture of fourth lumbar vertebra, sequela; W17.89XS Other fall from one level to another, sequela
CPT/HCPCS: 12345; 36415; 71045; 74177; 76705; 80053; 80074; 80307; 81001; 82607; 83036; 83690; 83735; 84100; 84145; 84425; 84484; 85025; 86140; 87040; 93005; 93971; 96361; 96372; 96374; 96375; 96376; 99283; 99285; J1650; J1885; J2060; J2270; J2405; J3411; J3475; J3490; J7030; Q9967

== ENCOUNTER 2019-12-03 18:38 | Emergency (ER) | payer SELFPAY ==
[2019-12-03] VITALS (11 sets, daily range): BP systolic 113–151; BP diastolic 59–103; PULSE 89–102; RESP 14–20; TEMP 36.3; O2SAT 95–100; BMI 25.1
--- NOTE | 2019-12-03 18:51 | ED_ITS ---
Documented by User: MARLYN Oneil 12/03/19 22:01 HPI - Abdominal Pain General: Chief Complaint: Abdominal Pain Stated Complaint: ABD PAIN Time Seen by Provider: 12/03/19 18:46 History of Present Illness: HPI narrative: Patient is a 34-year-old male who comes to the ED with abdominal pain. Patient has a past medical history of splenectomy, alcohol abuse, PTSD and pancreatitis. Patient was seen here in the ED a couple weeks ago on November 17. He was diagnosed with acute alcohol induced pancreatitis. He was hospitalized and discharged on November 21. Patient says that since discharge he has been feeling good with no abdominal pain. 2 days ago patient says he had a little bit of whiskey. Today patient woke up and had some mild abdominal pain and his right upper quadrant and epigastric region. Patient says throughout the day it is just intensified and gotten worse. Denies any fever, nausea, vomiting, bladder or bowel symptoms. Associated Symptoms: Denies chills, constipation, diarrhea, dysuria, fever(s), hematochezia, hematuria, nausea and vomiting Review of Systems Const: Denies: fever, chills or fatigue Eyes: Denies: change in vision or eye discomfort ENMT: Denies: throat pain, painful swallowing, nasal discharge or nasal congestion Card: Denies: chest pain, palpitations, edema, swelling of feet/ankles, shortness of breath on exertion or shortness of breath when lying down Resp: Denies: shortness of breath, productive cough or non-productive cough GI: Reports: abdominal pain; Denies: nausea, vomiting, diarrhea, constipation or blood in stool : Denies: flank pain, difficulty urinating, painful urination or blood in urine Musc: Denies: neck pain, back pain or extremity swelling Skin/Breast: Denies: rash or new lesion Neuro: Denies: headache, numbness in extremities or weakness in extremities PFS ED PFSH: Medical History C2 cervical fracture C7 cervical fracture History of suicide attempt L4 vertebral fracture Polysubstance abuse Surgical History History of appendectomy History of splenectomy Family History Other Diabetes Social History Smoking and tobacco status: current every day smoker Alcohol intake: current Physical Exam Const: COMMON NORMALS: oriented x3 and alert GENERAL APPEARANCE: cooperative, ill appearing (pt appears in pain) and well hydrated; no odor of alcohol detected HENMT: COMMON NORMALS: normocephalic HEAD & SCALP: normocephalic MOUTH: oral and palatal mucosa normal THROAT: posterior oropharynx normal and uvula midline Eye: COMMON NORMALS: PERRL PUPIL: Yes PERRL Neck/C-Spine: COMMON NORMALS: supple GENERAL: Yes normal visual inspection Resp: COMMON NORMALS: normal respiratory effort, no retractions, no use of accessory muscles and clear to auscultation bilaterally AUSCULTATION: clear to auscultation bilaterally Cardio: COMMON NORMALS: regular rate, regular rhythm, S1 normal heart sound, S2 normal heart sound, no gallops, no clicks, no murmurs and peripheral pulses 2+ throughout RATE: regular rate RHYTHM: regular rhythm HEART SOUNDS: S1 normal and S2 normal PERIPHERAL PULSES: pulses 2+ throughout GI: COMMON NORMALS: normal to inspection, nondistended, normoactive bowel sounds, soft to palpation and no masses AUSCULTATION: Yes normoactive bowel sounds PALPATION: Yes soft and Yes tender (Moderate tenderness in right upper quadrant and epigastric region.) Details: RUQ and other (epigastric region) : COMMON NORMALS: Yes no CVA tenderness BLADDER/KIDNEY EXAM: Yes no CVA tenderness Back/Pelvis: COMMON NORMALS: no CVA tenderness Extremity: COMMON NORMALS: normal to inspection and no pedal edema Neuro: COMMON NORMALS: oriented x3 SENSORIUM/ORIENTATION: Yes alert GAIT: Yes normal gait Skin: COMMON NORMALS: no rashes or lesions noted GENERAL SKIN EXAM: no rashes or lesions noted and dry skin Course Consultations: Consultation #1: I contacted [facility] in [place], [place]. we are going to do an ER to ER transfer of patient. I spoke with Dr. You in the ED and told him about patient case. They accepted transfer of patient. Time: 21:50 Consultation #2: I talked with Dr. Esparza the [facility] on-call surgeon about patient's case and the CT findings. Due to patient's pancreatitis with the possible pseudocyst or abscess lesion forming on the pancreas, Dr. Esparza recommended patient being transferred to [place] for care. Time: 21:02 Vital Signs: Vital signs: Vital Signs Temperature 97.3 F L 12/03/19 18:43 Pulse Rate 102 H 12/03/19 21:30 Respiratory Rate 16 12/03/19 21:30 Blood Pressure 129/94 12/03/19 21:30 Pulse Oximetry 97 12/03/19 21:30 MDM - Abdominal Pain MDM Narrative: Medical decision making narrative: Patient is a 34-year-old male who comes into the ED with abdominal pain. Patient has a past medical history of pancreatitis and was recently hospitalized for pancreatitis about 2 weeks ago. Labs performed today were remarkable for white blood cell count of 17.1 and a lipase of 490. CT of the abdomen pelvis was performed and it showed multiple acute findings?acute pancreatitis with cystic lesion that is possibly a pseudocyst or abscess. Gallbladder wall thickening possible Cholecystitis. Partial mid small bowel obstruction. I consulted Dr. Esparza the on-call surgeon here at [facility] after discussing patient with him he thinks patient needs to be transferred. I talked with [facility] in [place] and they are going to do an ER to ER transfer of patient. Patient will be seen by GI and general surgery at [facility] in [place]. Patient is stable for transfer. Patient understood and agreed with plan to transfer to [facility] in [place]. Lab Data: Attestation: I reviewed the patient's lab results. Labs: Lab Results 12/03/19 12/03/19 12/03/19 Range/Units 19:09 19:09 19:09 WBC 17.1 H (4.0-10.0) 10^3/ uL RBC 4.27 (4.1-5.3) 10^6/u L Hgb 14.3 (11.7-16.6) g/dL Hct 42.5 (42.0-52.0) % MCV 99.5 H (80-94) fL MCH 33.5 (28.0-34.0) pg MCHC 33.6 (30.0-36.0) g/dL RDW 14.6 (12.1-15.1) % Plt Count 754 H (130-400) 10^3/c mm MPV 8.4 (7.4-10.4) fL Neut % (Auto) 66.2 % Lymph % (Auto) 24.5 % Benson % (Auto) 7.7 % Eos % (Auto) 0.6 % Baso % (Auto) 0.5 % Neut # (Auto) 11.3 H (1.8-7.7) 10^3/u L Lymph # (Auto) 4.2 (0.8-4.8) 10^3/u L Benson # (Auto) 1.3 H (0.2-0.9) 10^3/u L Eos # (Auto) 0.1 (0.0-0.8) 10^3/u L Baso # (Auto) 0.1 (0.0-0.1) 10^3/u L Nucleated RBC % (a uto) 0 % Nucleated RBCs # 0.0 /100WBC PT 12.30 (10.5-13.3) SECO NDS INR 0.88 (0.8-1.2) Sodium 136 (136-145) mmol/L Potassium 4.1 (3.5-5.1) mmol/L Chloride 97 L (98-107) mmol/L Carbon Dioxide 28 (22-29) mmol/L Anion Gap 15.1 (5-19) BUN 15 (6-20) mg/dL Creatinine 1.1 (0.7-1.2) mg/dL GFR Calculation 77.1 L (90-130) mL/min Glucose 94 (65-115) mg/dL Calculated Osmolal ity 278 L (285-295) mOsm/k g Calcium 9.5 (8.5-10.5) mg/dL Total Bilirubin 0.2 (0.15-1.2) mg/dL AST 23 (0-40) U/L ALT 38 (0-41) U/L Alkaline Phosphata se 134 H (40-130) IU/L C-Reactive Protein 27.6 H (0.0-4.9) mg/L Total Protein 7.6 (6.6-8.7) g/dL Albumin 4.4 (3.5-5.2) g/dL Globulin 3.2 (1.3-4.6) g/dL Lipase 490 H (13-60) U/L Urine Color (Yellow) Urine Appearance (CLEAR) Urine pH (5-7) Ur Specific Gravit y (1.005-1.030) Urine Protein (Negative) Urine Glucose (UA) (Normal) Urine Ketones (Negative) Urine Blood (Negative) Urine Nitrate (Negative) Urine Bilirubin (NEGATIVE) Urine Urobilinogen (Negative) mg/dL Ur Leukocyte Johana ase (Negative) 12/03/19 Range/Units 19:46 WBC (4.0-10.0) 10^3/ uL RBC (4.1-5.3) 10^6/u L Hgb (11.7-16.6) g/dL Hct (42.0-52.0) % MCV (80-94) fL MCH (28.0-34.0) pg MCHC (30.0-36.0) g/dL RDW (12.1-15.1) % Plt Count (130-400) 10^3/c mm MPV (7.4-10.4) fL Neut % (Auto) % Lymph % (Auto) % Benson % (Auto) % Eos % (Auto) % Baso % (Auto) % Neut # (Auto) (1.8-7.7) 10^3/u L Lymph # (Auto) (0.8-4.8) 10^3/u L Benson # (Auto) (0.2-0.9) 10^3/u L Eos # (Auto) (0.0-0.8) 10^3/u L Baso # (Auto) (0.0-0.1) 10^3/u L Nucleated RBC % (a uto) % Nucleated RBCs # /100WBC PT (10.5-13.3) SECO NDS INR (0.8-1.2) Sodium (136-145) mmol/L Potassium (3.5-5.1) mmol/L Chloride (98-107) mmol/L Carbon Dioxide (22-29) mmol/L Anion Gap (5-19) BUN (6-20) mg/dL Creatinine (0.7-1.2) mg/dL GFR Calculation (90-130) mL/min Glucose (65-115) mg/dL Calculated Osmolal ity (285-295) mOsm/k g Calcium (8.5-10.5) mg/dL Total Bilirubin (0.15-1.2) mg/dL AST (0-40) U/L ALT (0-41) U/L Alkaline Phosphata se (40-130) IU/L C-Reactive Protein (0.0-4.9) mg/L Total Protein (6.6-8.7) g/dL Albumin (3.5-5.2) g/dL Globulin (1.3-4.6) g/dL Lipase (13-60) U/L Urine Color Yellow (Yellow) Urine Appearance Clear (CLEAR) Urine pH 6.5 (5-7) Ur Specific Gravit y 1.020 (1.005-1.030) Urine Protein Neg (Negative) Urine Glucose (UA) Norm (Normal) Urine Ketones Negative (Negative) Urine Blood Neg (Negative) Urine Nitrate Negative (Negative) Urine Bilirubin Neg (NEGATIVE) Urine Urobilinogen Norm (Negative) mg/dL Ur Leukocyte Johana ase Negative (Negative) Imaging Data ^: CT Abd/Pel: Attestation: I personally reviewed and interpreted this imaging study as follows: Radiologist's impression: [place] [address] CT Scan Report Signed Patient: Elena Hernandez Unit #: [id number] : 1985 Age/Sex: 34 / M ADM Date: 12/03/19 Loc: ER Room/Bed: Attending Dr: Ordering Provider/Ordering MD: Carrillo Cotton Date of Service: 12/03/19 Procedure(s): CT abdomen pelvis w con* [id number] Accession Number(s): [id number] Report Number: [id number] PROCEDURE INFORMATION: Exam: CT Abdomen And Pelvis With Contrast Exam date and time: 12/03/2019 7:46 PM Age: 34 years old Clinical indication: Abdominal pain; Localized; Prior surgery; Surgery date: 6+ months; Surgery type: Spleen, appy; Patient HX: C/O upper abd pain w elev wbc TECHNIQUE: Imaging protocol: Computed tomography of the abdomen and pelvis with intravenous contrast. Radiation optimization: All CT scans at this facility use at least one of these dose optimization techniques: automated exposure control; mA and/or kV adjustment per patient size (includes targeted exams where dose is matched to clinical indication); or iterative reconstruction. Contrast material: OMNI 300; Contrast volume: 95 ml; Contrast route: 20G; COMPARISON: CT abdomen pelvis w con* [id number] 11/18/2019 3:52 PM RADIATION DOSE METRICS: Total DLP: 638.99 mGy-cm FINDINGS: Liver: Normal. No mass. Gallbladder and bile ducts: Gallbladder wall is somewhat ill-defined in possibly thickened. Pancreas: There is diffuse peripancreatic inflammatory stranding and fluid, consistent with acute pancreatitis. There is a cystic lesion with several finger-like projections at the junction of the pancreatic head and body extending along the posterior aspect of the pancreas. The posterior caudal finger-like projection cannot be differentiated from an adjacent small bowel loops. Spleen: Status post splenectomy. Adrenals: Normal. No mass. Kidneys and ureters: Normal. No hydronephrosis. Stomach and bowel: There are air-fluid levels in mildly dilated small bowel loops in the left upper quadrant. Distal small bowel is relatively collapsed. Appendix: There has been an appendectomy. Intraperitoneal space: There is intraperitoneal free fluid with internal complexity and mild peripheral enhancement in the right upper quadrant abdomen. Vasculature: Unremarkable. No abdominal aortic aneurysm. Lymph nodes: Unremarkable. No enlarged lymph nodes. Bladder: Unremarkable as visualized. Reproductive: Unremarkable as visualized. Bones/joints: Unremarkable. No acute fracture. Soft tissues: Unremarkable. CT/CT abdomen pelvis w con* [id number] IMPRESSION: 1. Acute pancreatitis. There is a cystic lesion with finger-like projections with the epicenter at the junction of the pancreatic head/body extending along the posterior aspect of the pancreas and poorly differentiated from adjacent small bowel loop. Differential includes pseudocyst an abscess formation. This was not seen on the prior study. 2. Findings as stated above are consistent with a partial mid small bowel obstruction. 3. Gallbladder wall is ill-defined and possibly thickened. This may be reactive in nature or represent cholecystitis. 4. There is free fluid with internal complexity and mild peripheral enhancing in the right upper quadrant abdomen. Differential includes additional developing cirrhosis and/or abscess. Radiation Dose CTDIVOL = (mGy): DLP = 638.99 (mGy-cm) Dictated By: Deonna Donaldson MD Signed By: Deonna Donaldson MD Signed Date/Time: 12/03/192022 DD/ 21 Discharge Plan Discharge Patient Disposition: Xfer Other Clinical Impression: Partial small bowel obstruction, Thickening of wall of gallbladder Pancreatitis, alcoholic, acute Qualifiers: Acute pancreatitis complication: unspecified Qualified Code(s): K85.20 - Alcohol induced acute pancreatitis without necrosis or infection Condition: Stable Referrals: Mahamed Sales MD [Primary Care Provider] - Coding Level of Care Code ED Camp[employer] Cleaning Attendant for Chg Fwd Exam Comprehensive Documented by User: Hannah Feliciano MD 12/03/19 22:04 HPI - Abdominal Pain General: Chief Complaint: Abdominal Pain Stated Complaint: ABD PAIN Time Seen by Provider: 12/03/19 18:46 PFSH ED PFSH: Medical History C2 cervical fracture C7 cervical fracture History of suicide attempt L4 vertebral fracture Polysubstance abuse Surgical History History of appendectomy History of splenectomy Family History Other Diabetes Social History Smoking and tobacco status: current every day smoker Alcohol intake: current Course Vital Signs: Vital signs: Vital Signs Temperature 97.3 F L 12/03/19 18:43 Pulse Rate 102 H 12/03/19 21:30 Respiratory Rate 16 12/03/19 21:30 Blood Pressure 129/94 12/03/19 21:30 Pulse Oximetry 97 12/03/19 21:30 MDM - Abdominal Pain Lab Data: Labs: Lab Results 12/03/19 12/03/19 12/03/19 Range/Units 19:09 19:09 19:09 WBC 17.1 H (4.0-10.0) 10^3/ uL RBC 4.27 (4.1-5.3) 10^6/u L Hgb 14.3 (11.7-16.6) g/dL Hct 42.5 (42.0-52.0) % MCV 99.5 H (80-94) fL MCH 33.5 (28.0-34.0) pg MCHC 33.6 (30.0-36.0) g/dL RDW 14.6 (12.1-15.1) % Plt Count 754 H (130-400) 10^3/c mm MPV 8.4 (7.4-10.4) fL Neut % (Auto) 66.2 % Lymph % (Auto) 24.5 % Benson % (Auto) 7.7 % Eos % (Auto) 0.6 % Baso % (Auto) 0.5 % Neut # (Auto) 11.3 H (1.8-7.7) 10^3/u L Lymph # (Auto) 4.2 (0.8-4.8) 10^3/u L Benson # (Auto) 1.3 H (0.2-0.9) 10^3/u L Eos # (Auto) 0.1 (0.0-0.8) 10^3/u L Baso # (Auto) 0.1 (0.0-0.1) 10^3/u L Nucleated RBC % (a uto) 0 % Nucleated RBCs # 0.0 /100WBC PT 12.30 (10.5-13.3) SECO NDS INR 0.88 (0.8-1.2) Sodium 136 (136-145) mmol/L Potassium 4.1 (3.5-5.1) mmol/L Chloride 97 L (98-107) mmol/L Carbon Dioxide 28 (22-29) mmol/L Anion Gap 15.1 (5-19) BUN 15 (6-20) mg/dL Creatinine 1.1 (0.7-1.2) mg/dL GFR Calculation 77.1 L (90-130) mL/min Glucose 94 (65-115) mg/dL Calculated Osmolal ity 278 L (285-295) mOsm/k g Calcium 9.5 (8.5-10.5) mg/dL Total Bilirubin 0.2 (0.15-1.2) mg/dL AST 23 (0-40) U/L ALT 38 (0-41) U/L Alkaline Phosphata se 134 H (40-130) IU/L C-Reactive Protein 27.6 H (0.0-4.9) mg/L Total Protein 7.6 (6.6-8.7) g/dL Albumin 4.4 (3.5-5.2) g/dL Globulin 3.2 (1.3-4.6) g/dL Lipase 490 H (13-60) U/L Urine Color (Yellow) Urine Appearance (CLEAR) Urine pH (5-7) Ur Specific Gravit y (1.005-1.030) Urine Protein (Negative) Urine Glucose (UA) (Normal) Urine Ketones (Negative) Urine Blood (Negative) Urine Nitrate (Negative) Urine Bilirubin (NEGATIVE) Urine Urobilinogen (Negative) mg/dL Ur Leukocyte Johana ase (Negative) 12/03/19 Range/Units 19:46 WBC (4.0-10.0) 10^3/ uL RBC (4.1-5.3) 10^6/u L Hgb (11.7-16.6) g/dL Hct (42.0-52.0) % MCV (80-94) fL MCH (28.0-34.0) pg MCHC (30.0-36.0) g/dL RDW (12.1-15.1) % Plt Count (130-400) 10^3/c mm MPV (7.4-10.4) fL Neut % (Auto) % Lymph % (Auto) % Benson % (Auto) % Eos % (Auto) % Baso % (Auto) % Neut # (Auto) (1.8-7.7) 10^3/u L Lymph # (Auto) (0.8-4.8) 10^3/u L Benson # (Auto) (0.2-0.9) 10^3/u L Eos # (Auto) (0.0-0.8) 10^3/u L Baso # (Auto) (0.0-0.1) 10^3/u L Nucleated RBC % (a uto) % Nucleated RBCs # /100WBC PT (10.5-13.3) SECO NDS INR (0.8-1.2) Sodium (136-145) mmol/L Potassium (3.5-5.1) mmol/L Chloride (98-107) mmol/L Carbon Dioxide (22-29) mmol/L Anion Gap (5-19) BUN (6-20) mg/dL Creatinine (0.7-1.2) mg/dL GFR Calculation (90-130) mL/min Glucose (65-115) mg/dL Calculated Osmolal ity (285-295) mOsm/k g Calcium (8.5-10.5) mg/dL Total Bilirubin (0.15-1.2) mg/dL AST (0-40) U/L ALT (0-41) U/L Alkaline Phosphata se (40-130) IU/L C-Reactive Protein (0.0-4.9) mg/L Total Protein (6.6-8.7) g/dL Albumin (3.5-5.2) g/dL Globulin (1.3-4.6) g/dL Lipase (13-60) U/L Urine Color Yellow (Yellow) Urine Appearance Clear (CLEAR) Urine pH 6.5 (5-7) Ur Specific Gravit y 1.020 (1.005-1.030) Urine Protein Neg (Negative) Urine Glucose (UA) Norm (Normal) Urine Ketones Negative (Negative) Urine Blood Neg (Negative) Urine Nitrate Negative (Negative) Urine Bilirubin Neg (NEGATIVE) Urine Urobilinogen Norm (Negative) mg/dL Ur Leukocyte Johana ase Negative (Negative) Discharge Plan Discharge Patient Disposition: Xfer Other Clinical Impression: Partial small bowel obstruction, Thickening of wall of gallbladder Pancreatitis, alcoholic, acute Qualifiers: Acute pancreatitis complication: unspecified Qualified Code(s): K85.20 - Alcohol induced acute pancreatitis without necrosis or infection Condition: Stable Referrals: Mahamed Sales MD [Primary Care Provider] - Coding Level of Care Code ED Campground Cleaning Attendant for g Fwd Exam Comprehensive
[2019-12-03] MEDS: ondansetron 2 mg/ML SDV 2 mL 4 MG IVP (19:09)
[2019-12-03] MEDS: morphine 4 mg/mL SDV 1 mL IVP ×2 (19:09→19:43)
[2019-12-03] MEDS: sodium chloride 0.9% 500 ML IV (19:12)
[2019-12-03 19:17] LABS: Basophils # 0.1 10^3/uL (0.0-0.1); Basophils % 0.5 %; Eosinophils # 0.1 10^3/uL (0.0-0.8); Eosinophils % 0.6 %; Hematocrit 42.5 % (42.0-52.0); Hemoglobin 14.3 g/dL (11.7-16.6); Lymphocytes # 4.2 10^3/uL (0.8-4.8); Lymphocytes % 24.5 %; Mean Corpuscular HGB Conc 33.6 g/dL (30.0-36.0); Mean Corpuscular Hemoglobin 33.5 pg (28.0-34.0); Mean Corpuscular Volume 99.5 fL (80-94); Mean Platelet Volume 8.4 fL (7.4-10.4); Monocytes # 1.3 10^3/uL (0.2-0.9); Monocytes % 7.7 %; Neutrophils # 11.3 10^3/uL (1.8-7.7); Neutrophils % 66.2 %; Nucleated Red Blood Cells % 0 %; Platelet Count 754 10^3/cmm (130-400); Red Blood Count 4.27 10^6/uL (4.1-5.3); Red Cell Distribution Width 14.6 % (12.1-15.1); White Blood Count 17.1 10^3/uL (4.0-10.0)
[2019-12-03 19:30] LABS: Alanine Aminotransferase 38 U/L (0-41); Albumin Level 4.4 g/dL (3.5-5.2); Alkaline Phosphatase 134 IU/L (40-130); Anion Gap 15.1 (5-19); Aspartate Amino Transferase 23 U/L (0-40); Blood Urea Nitrogen 15 mg/dL (6-20); Calcium 9.5 mg/dL (8.5-10.5); Carbon Dioxide 28 mmol/L (22-29); Chloride 97 mmol/L (98-107); Globulin 3.2 g/dL (1.3-4.6); Glomerular Filtration Rate 77.1 mL/min (90-130); Glucose 94 mg/dL (65-115); Osmolality Calculated 278 mOsm/kg (285-295); Potassium 4.1 mmol/L (3.5-5.1); Sodium 136 mmol/L (136-145); Total Bilirubin 0.2 mg/dL (0.15-1.2); Total Protein 7.6 g/dL (6.6-8.7)
[2019-12-03 19:31] LABS: INR 0.88 (0.8-1.2)
--- NOTE | 2019-12-03 19:43 | CTR_ITS ---
PROCEDURE INFORMATION: Exam: CT Abdomen And Pelvis With Contrast Exam date and time: 12/03/2019 7:46 PM Age: 34 years old Clinical indication: Abdominal pain; Localized; Prior surgery; Surgery date: 6+ months; Surgery type: Spleen, appy; Patient HX: C/O upper abd pain w elev wbc TECHNIQUE: Imaging protocol: Computed tomography of the abdomen and pelvis with intravenous contrast. Radiation optimization: All CT scans at this facility use at least one of these dose optimization techniques: automated exposure control; mA and/or kV adjustment per patient size (includes targeted exams where dose is matched to clinical indication); or iterative reconstruction. Contrast material: OMNI 300; Contrast volume: 95 ml; Contrast route: 20G; COMPARISON: CT abdomen pelvis w con* [id number] 11/18/2019 3:52 PM RADIATION DOSE METRICS: Total DLP: 638.99 mGy-cm FINDINGS: Liver: Normal. No mass. Gallbladder and bile ducts: Gallbladder wall is somewhat ill-defined in possibly thickened. Pancreas: There is diffuse peripancreatic inflammatory stranding and fluid, consistent with acute pancreatitis. There is a cystic lesion with several finger-like projections at the junction of the pancreatic head and body extending along the posterior aspect of the pancreas. The posterior caudal finger-like projection cannot be differentiated from an adjacent small bowel loops. Spleen: Status post splenectomy. Adrenals: Normal. No mass. Kidneys and ureters: Normal. No hydronephrosis. Stomach and bowel: There are air-fluid levels in mildly dilated small bowel loops in the left upper quadrant. Distal small bowel is relatively collapsed. Appendix: There has been an appendectomy. Intraperitoneal space: There is intraperitoneal free fluid with internal complexity and mild peripheral enhancement in the right upper quadrant abdomen. Vasculature: Unremarkable. No abdominal aortic aneurysm. Lymph nodes: Unremarkable. No enlarged lymph nodes. Bladder: Unremarkable as visualized. Reproductive: Unremarkable as visualized. Bones/joints: Unremarkable. No acute fracture. Soft tissues: Unremarkable. CT/CT abdomen pelvis w con* [id number] IMPRESSION: 1. Acute pancreatitis. There is a cystic lesion with finger-like projections with the epicenter at the junction of the pancreatic head/body extending along the posterior aspect of the pancreas and poorly differentiated from adjacent small bowel loop. Differential includes pseudocyst an abscess formation. This was not seen on the prior study. 2. Findings as stated above are consistent with a partial mid small bowel obstruction. 3. Gallbladder wall is ill-defined and possibly thickened. This may be reactive in nature or represent cholecystitis. 4. There is free fluid with internal complexity and mild peripheral enhancing in the right upper quadrant abdomen. Differential includes additional developing cirrhosis and/or abscess. Radiation Dose CTDIVOL = (mGy): DLP = 638.99 (mGy-cm)
[2019-12-03 19:45] LABS: Lipase 490 U/L (13-60)
[2019-12-03 19:49] LABS: C Reactive Protein 27.6 mg/L (0.0-4.9)
[2019-12-03] MEDS: iohexol 300 mg/mL 100 mL Btl IV (19:58)
[2019-12-03 19:59] LABS: Add Urine Microscopic? NO
[2019-12-03 20:10] LABS: Bilirubin Urine Neg (NEGATIVE); Blood Urine Neg (Negative); Glucose Urine UA Norm (Normal); Ketones Urine Negative (Negative); Leukocyte Esterase Urine Negative (Negative); Nitrate Urine Negative (Negative); Protein Urine Neg (Negative); Urine Appearance Clear (CLEAR); Urine Color Yellow (Yellow); Urobilinogen Urine Norm (Negative); pH Urine 6.5 (5-7)
[2019-12-03] MEDS: HYDROmorphone 1 mg/mL INJ 1 mL 0.5 MG IVP (20:21)
[2019-12-03] MEDS: piperacillin-tazobactam 3.375 GM in sodium chloride 0.9% (plus) 50 ML IV (21:15)
--- NOTE | 2019-12-03 22:08 | PC.NURSE ---
Called report to Juliana segura RN
== END 2019-12-03 23:05 | disposition other institution (70) ==
PROVIDERS: Emergency Medicine; Emergency Provider Physician Assistant; Family Provider Family Medicine; PCP Family Medicine
DX: K56.600 Partial intestinal obstruction, unspecified as to cause (principal); K82.8 Other specified diseases of gallbladder; K85.20 Alcohol induced acute pancreatitis without necrosis or infection; F17.210 Nicotine dependence, cigarettes, uncomplicated
CPT/HCPCS: 12345; 74177; 80053; 81003; 83690; 85025; 85610; 86140; 96360; 96361; 96365; 96375; 99283; J1170; J2270; J2405; J2543; J7040; Q9967

== ENCOUNTER 2020-05-17 13:12 | Observation (INO) | payer SELFPAY ==
[2020-05-17] VITALS (10 sets, daily range): BP systolic 132–170; BP diastolic 91–115; PULSE 56–81; RESP 14–18; TEMP 36.5–36.7; O2SAT 96–100; BMI 26.4
--- NOTE | 2020-05-17 13:45 | CT_ITS ---
WS: [id number] CT ABDOMEN AND PELVIS WITH CONTRAST HISTORY: Abdominal pain. TECHNIQUE: Imaging performed of the abdomen and pelvis with IV contrast. Single phase imaging of the abdomen. Coronal and sagittal reformats are submitted. All CT scans at [facility] use at least one of these dose optimization techniques: automated exposure control; mA and/or kV adjustment per patient size (includes targeted exams where dose is matched to clinical indication); or iterativ e reconstruction. IV CONTRAST: Omnipaque 300; 95 mL IV. Oral contrast: No DLP: 564.09 mGy.cm COMPARISON: 12/03/2019 Lower thorax: Lung bases are clear. Heart is normal size. Small hiatal hernia. Liver/biliary system: Mild hepatic steatosis and hepatomegaly. Gallbladder: Mildly contracted gallbladder, no stones identified. Pancreas: Less peripancreatic stranding as on the prior study. There is a large well-circumscribed fl uid collection at the junction of the pancreatic head and tail measuring 4.8 x 3.9 cm. This collectio n was present on the prior study and has become more organized. The associated pancreatic duct is not dilated. Spleen: Prior splenectomy. Adrenal glands: Normal. Right kidney: Normal. Left kidney: Normal. Aorta: Normal. Lymphadenopathy: None. Free fluid: None. GI tract: Appendix is not identified but there is no evidence for appendicitis. Mild fecal retention. No wall thickening. Abdominal wall: Unremarkable abdominal wall. No hernia. Pelvis: Normal. Bones: Mild degenerative disc disease at L4-5. CT/CT abdomen pelvis w con* [id number] IMPRESSION: 1. Large cystic mass in the junction of the pancreatic head and body measures 4.8 x 3.9 cm. Developing cyst was noted on the prior CT of 12/03/2019. This is no w well-organized and probably represents an intrapancreatic pseudocyst. 2. Mildly contracted gallbladder. 3. No evidence for acute pancreatitis. 4. No ascites.
--- NOTE | 2020-05-17 13:45 | ECG_ITS ---
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 Measurements Intervals [place] Rate: 61 P: 56 DC: 151 QRS: 93 QRSD: 104 T: 28 QT: 416 QTc: 421 Interpretive Statements SINUS RHYTHM BORDERLINE RIGHT AXIS DEVIATION [QRS AXIS > 90] Compared to ECG 11/18/2019 23:12:02 No significant changes Electronically Signed On 05-17-2020 18:36:36 CDT by Jamal Godwin M.D. [id number]
--- NOTE | 2020-05-17 13:45 | XR_ITS ---
WS: [id number] Portable AP upright chest, 05/17/2020 Clinical Data: dyspnea/cough Comparison: Portable chest, 11/18/2019. Findings: No nodules, masses or effusions are seen. The heart is normal. The pulmonary vascularity is not increased. No pneumonia or pneumothorax is seen. There is a plate on the superior aspect of the right clavicle fixed with multiple screws reducing an old fracture. XR/XR chest 1V portable [id number] Impression: Negative chest.
--- NOTE | 2020-05-17 13:46 | ED_ITS ---
HPI - Abdominal Pain General: Chief Complaint: Abdominal Pain Stated Complaint: ABD pain Time Seen by Provider: 05/17/20 13:28 History of Present Illness: HPI narrative: 34-year-old male presents emergency room complaining of left right left upper quadrant pain that began this morning. He denies drinking any alcohol yesterday but he does usually drink 4-5 times per week up to a pint each time. He denies any vomiting or diarrhea but has had a lot of nausea no respiratory symptoms no hematochezia melena hematemesis or coffee-ground emesis MD elicited complaint: abdominal pain Onset (ago): hour(s) Pain Consistency: constant Location: Epigastric and LUQ Quality: cramping and stabbing Radiation: back Migration to: no migration Exacerbating factors: eating and movement Relieving factors: rest Associated Symptoms: Reports anorexia, bloating, GI cramping, diarrhea, nausea and poor appetite; Denies belching, change in bowel habits, change in stool character, chills, coffee ground emesis, constipation, dyspepsia, dysuria, excessive flatus, fever(s), heartburn, hematochezia, hematuria, hematemesis, fecal incontinence, loose stools, melena, syncope and vomiting Review of Systems Const: Denies: fever(s) or chills ENMT: Denies: throat pain, ear or mastoid pain, nasal discharge or nasal congestion Card: Denies: syncope Resp: Denies: dyspnea, productive cough or non-productive cough GI: Reports: nausea, diarrhea, bloating and GI cramping; Denies: vomiting, hematemesis, coffee ground emesis, heartburn, constipation, belching, excessive flatus, fecal incontinence, change in bowel habits, change in stool character, hematochezia or melena : Denies: dysuria or hematuria Skin/Breast: Denies: rash or pruritus PFSH ED PFSH: Medical History C2 cervical fracture C7 cervical fracture History of suicide attempt L4 vertebral fracture Polysubstance abuse Surgical History History of appendectomy History of splenectomy Family History Other Diabetes Social History Smoking and tobacco status: current every day smoker Alcohol intake: current Physical Exam Const: GENERAL APPEARANCE: cooperative ORIENTATION/CONSCIOUSNESS: Yes awake, Yes oriented to person, Yes oriented to place and Yes oriented to time HENMT: COMMON NORMALS: normocephalic, atraumatic and hearing grossly normal bilaterally HEAD & SCALP: normocephalic and atraumatic Eye: COMMON NORMALS: Equal, round and reactive pupils present, EOMs intact bilaterally, conjunctivae normal and no scleral icterus CONJUNCTIVA: Yes conjunctivae normal PUPIL: Yes Equal, round and reactive pupils present Neck/C-Spine: COMMON NORMALS: no JVD Resp: COMMON NORMALS: normal respiratory effort, No retractions, No use of accessory muscles and clear to auscultation bilaterally AUSCULTATION: clear to auscultation bilaterally Cardio: COMMON NORMALS: no JVD, regular rate, regular rhythm and No murmurs present (Cardio) RATE: regular rate RHYTHM: regular rhythm GI: COMMON NORMALS: No hepatosplenomegaly present AUSCULTATION: Yes normoactive bowel sounds PALPATION: Yes Tenderness to palpation present (GI) Details: LUQ, No Guarding due to palpation present (GI) and Yes No hepatosplenomegaly present Extremity: COMMON NORMALS: normal to inspection, capillary refill normal, no clubbing, cyanosis or edema, no calf tenderness and no pedal edema Neuro: SENSORIUM/ORIENTATION: Yes oriented to person, Yes oriented to place and Yes oriented to time Skin: COMMON NORMALS: no rashes or lesions noted GENERAL SKIN EXAM: no rashes or lesions noted Course Vital Signs: Vital signs: Vital Signs Temperature 97.6 F 05/18/20 12:58 Pulse Rate 61 05/18/20 12:58 Respiratory Rate 18 05/18/20 12:58 Blood Pressure 139/99 05/18/20 12:58 Pulse Oximetry 97 05/18/20 12:58 MDM - Abdominal Pain MDM Narrative: Medical decision making narrative: Patient has significant pain, CT shows pseudocyst but no evidence of acute pancreatitis triglycerides and lipase are mildly elevated. Will admit for pain control for acute pancreatitis got rest discussed with Dr. Damon Lab Data: Labs: Lab Results 10/15/20 10/15/20 10/15/20 Range/Units 13:53 13:53 13:53 WBC 14.1 H (4.0-10.0) 10^3/ uL RBC 4.46 (4.1-5.3) 10^6/u L Hgb 15.0 (11.7-16.6) g/dL Hct 43.7 (42.0-52.0) % MCV 98.0 H (80-94) fL MCH 33.6 (28.0-34.0) pg MCHC 34.3 (30.0-36.0) g/dL RDW 13.6 (12.1-15.1) % Plt Count 361 (130-400) 10^3/c mm MPV 8.9 (7.4-10.4) fL Neut % (Auto) 57.7 % Lymph % (Auto) 34.5 % [place] % (Auto) 5.0 % Eos % (Auto) 1.8 % Baso % (Auto) 0.5 % Neut # (Auto) 8.17 H (1.8-7.7) 10^3/u L Lymph # (Auto) 4.9 H (0.8-4.8) 10^3/u L [place] # (Auto) 0.7 (0.2-0.9) 10^3/u L Eos # (Auto) 0.3 (0.0-0.8) 10^3/u L Baso # (Auto) 0.1 (0.0-0.1) 10^3/u L Nucleated RBC % (a uto) 0 % Nucleated RBCs # 0.0 /100WBC Sodium 139 (136-145) mmol/L Potassium 3.7 (3.5-5.1) mmol/L Chloride 102 (98-107) mmol/L Carbon Dioxide 24 (22-29) mmol/L Anion Gap 16.7 (5-19) BUN 10 (6-20) mg/dL Creatinine 0.7 (0.7-1.2) mg/dL GFR Calculation 129.9 (90-130) mL/min Glucose 103 (65-115) mg/dL Calculated Osmolal ity 287 (285-295) mOsm/k g Lactic Acid 1.2 (0.5-2.2) mmol/L Calcium 9.6 (8.5-10.5) mg/dL Magnesium 1.6 L (1.7-2.3) mg/dL Total Bilirubin 0.2 (0.15-1.2) mg/dL AST 50 H (0-40) U/L ALT 67 H (0-41) U/L Alkaline Phosphata se 118 (40-130) IU/L Total Protein 7.1 (6.6-8.7) g/dL Albumin 4.5 (3.5-5.2) g/dL Globulin 2.6 (1.3-4.6) g/dL Triglycerides 166 H (0-150) mg/dL Lipase 181 H (13-60) U/L Urine Color (Yellow) Urine Appearance (CLEAR) Urine pH (5-7) Ur Specific Gravit y (1.005-1.030) Urine Protein (Negative) Urine Glucose (UA) (Normal) Urine Ketones (Negative) Urine Blood (Negative) Urine Nitrate (Negative) Urine Bilirubin (Negative) Urine Urobilinogen (Negative) mg/dL Ur Leukocyte Johana ase (Negative) Urine RBC (0-2) /hpf Urine WBC (0-5) /hpf Ur Squamous Epith Cells (0-5) /hpf Amorphous Sediment Urine Bacteria (NONE) /hpf Urine Mucus /hpf Serum Ketones Negative (Negative) 10/15/20 Range/Units 15:20 WBC (4.0-10.0) 10^3/ uL RBC (4.1-5.3) 10^6/u L Hgb (11.7-16.6) g/dL Hct (42.0-52.0) % MCV (80-94) fL MCH (28.0-34.0) pg MCHC (30.0-36.0) g/dL RDW (12.1-15.1) % Plt Count (130-400) 10^3/c mm MPV (7.4-10.4) fL Neut % (Auto) % Lymph % (Auto) % [place] % (Auto) % Eos % (Auto) % Baso % (Auto) % Neut # (Auto) (1.8-7.7) 10^3/u L Lymph # (Auto) (0.8-4.8) 10^3/u L [place] # (Auto) (0.2-0.9) 10^3/u L Eos # (Auto) (0.0-0.8) 10^3/u L Baso # (Auto) (0.0-0.1) 10^3/u L Nucleated RBC % (a uto) % Nucleated RBCs # /100WBC Sodium (136-145) mmol/L Potassium (3.5-5.1) mmol/L Chloride (98-107) mmol/L Carbon Dioxide (22-29) mmol/L Anion Gap (5-19) BUN (6-20) mg/dL Creatinine (0.7-1.2) mg/dL GFR Calculation (90-130) mL/min Glucose (65-115) mg/dL Calculated Osmolal ity (285-295) mOsm/k g Lactic Acid (0.5-2.2) mmol/L Calcium (8.5-10.5) mg/dL Magnesium (1.7-2.3) mg/dL Total Bilirubin (0.15-1.2) mg/dL AST (0-40) U/L ALT (0-41) U/L Alkaline Phosphata se (40-130) IU/L Total Protein (6.6-8.7) g/dL Albumin (3.5-5.2) g/dL Globulin (1.3-4.6) g/dL Triglycerides (0-150) mg/dL Lipase (13-60) U/L Urine Color Yellow (Yellow) Urine Appearance Clear (CLEAR) Urine pH 5 (5-7) Ur Specific Gravit y 1.015 (1.005-1.030) Urine Protein Trace (Negative) Urine Glucose (UA) Norm (Normal) Urine Ketones Negative (Negative) Urine Blood Neg (Negative) Urine Nitrate Negative (Negative) Urine Bilirubin Neg (Negative) Urine Urobilinogen Norm (Negative) mg/dL Ur Leukocyte Johana ase Negative (Negative) Urine RBC None (0-2) /hpf Urine WBC 5-10 H (0-5) /hpf Ur Squamous Epith Cells None (0-5) /hpf Amorphous Sediment Not Reportable Urine Bacteria Trace (NONE) /hpf Urine Mucus 2+ /hpf Serum Ketones (Negative) Discharge Plan Discharge Patient Disposition: Admitted As Inpatient Admit Provider: Rosanne Damon Clinical Impression: Pancreatitis, alcoholic, acute, Elevated transaminase level, History of splenectomy, Alcohol abuse, Pseudocyst of pancreas Condition: Stable Referrals: Gutierrez Esparza MD [Physician] - 2 weeks Mahamed Sales MD [Primary Care Provider] - 05/25/20 2:15 pm (hospital discharge follow up for pancreatic pseudocyst.) Discharge Diet: Advance as tolerated, Low Cholesterol and Low Fat Discharge Activity: Resume usual activity Patient Instructions: Hydrocodone/Acetaminophen (By mouth), Ondansetron (By mouth), Pancreatitis (DC), Dehydration (DC) Interventions: ED Discharge Assessment Last Done: 05/17/20 16:18 ED Charges Last Done: 05/17/20 16:18 Discharge Date/Time: 05/17/20 16:25 Coding Level of Care Code ED Master Fire Control Technician for Chg Fwd Exam Comprehensive
[2020-05-17 14:07] LABS: Basophils # 0.1 10^3/uL (0.0-0.1); Basophils % 0.5 %; Eosinophils # 0.3 10^3/uL (0.0-0.8); Eosinophils % 1.8 %; Hematocrit 43.7 % (42.0-52.0); Lymphocytes # 4.9 10^3/uL (0.8-4.8); Lymphocytes % 34.5 %; Mean Corpuscular HGB Conc 34.3 g/dL (30.0-36.0); Mean Corpuscular Hemoglobin 33.6 pg (28.0-34.0); Mean Platelet Volume 8.9 fL (7.4-10.4); Monocytes # 0.7 10^3/uL (0.2-0.9); Neutrophils # 8.17 10^3/uL (1.8-7.7); Neutrophils % 57.7 %; Nucleated Red Blood Cells % 0 %; Platelet Count 361 10^3/cmm (130-400); Red Blood Count 4.46 10^6/uL (4.1-5.3); Red Cell Distribution Width 13.6 % (12.1-15.1); White Blood Count 14.1 10^3/uL (4.0-10.0)
[2020-05-17] MEDS: iohexol 300 mg/mL 100 mL Btl IV (14:18)
[2020-05-17 14:24] LABS: Ketone (Acetest) Serum Negative (Negative)
[2020-05-17 14:31] LABS: Lactic Sepsis W/Reflex 1.2 mmol/L (0.5-2.2)
[2020-05-17] MEDS: sodium chloride 0.9% 1,000 ML 999 ML IV (14:34)
[2020-05-17] MEDS: ondansetron 2 mg/ML SDV 2 mL 4 MG IVP (14:34)
[2020-05-17] MEDS: morphine 4 mg/mL SDV 1 mL 8 MG IVP (14:34)
[2020-05-17 14:36] LABS: Alanine Aminotransferase 67 U/L (0-41); Albumin Level 4.5 g/dL (3.5-5.2); Alkaline Phosphatase 118 IU/L (40-130); Anion Gap 16.7 (5-19); Aspartate Amino Transferase 50 U/L (0-40); Blood Urea Nitrogen 10 mg/dL (6-20); Calcium 9.6 mg/dL (8.5-10.5); Carbon Dioxide 24 mmol/L (22-29); Chloride 102 mmol/L (98-107); Globulin 2.6 g/dL (1.3-4.6); Glomerular Filtration Rate 129.9 mL/min (90-130); Glucose 103 mg/dL (65-115); Lipase 181 U/L (13-60); Magnesium 1.6 mg/dL (1.7-2.3); Osmolality Calculated 287 mOsm/kg (285-295); Potassium 3.7 mmol/L (3.5-5.1); Sodium 139 mmol/L (136-145); Total Bilirubin 0.2 mg/dL (0.15-1.2); Total Protein 7.1 g/dL (6.6-8.7); Triglycerides 166 mg/dL (0-150)
[2020-05-17] MEDS: morphine 4 mg/mL SDV 1 mL IVP ×2 (16:02→21:29)
[2020-05-17 16:06] LABS: Add Urine Microscopic? YES; Bilirubin Urine Neg (Negative); Blood Urine Neg (Negative); Glucose Urine UA Norm (Normal); Ketones Urine Negative (Negative); Leukocyte Esterase Urine Negative (Negative); Nitrate Urine Negative (Negative); Protein Urine Trace (Negative); Specific Gravity, Urine 1.015 (1.005-1.030); Urine Appearance Clear (CLEAR); Urine Color Yellow (Yellow); Urobilinogen Urine Norm (Negative); pH Urine 5 (5-7)
[2020-05-17 16:09] LABS: Add Urine Culture? No; Bacteria Urine TRACE /hpf; Mucus Urine 2+ /hpf
--- NOTE | 2020-05-17 17:00 | PM.HP ---
Providers/Chief Complaint Admitting Physician: Rosanne Damon MD Primary Care Provider: Mahamed Sales MD Chief Complaint: ABD pain History of Present Illness Elena Hernandez is a 34 year old male with a past medical history of alcohol abuse, alcohol withdrawal, alcohol withdrawal seizures, illicit drug abuse in the past, history of suicide attempt in the past, posttraumatic stress disease, history of fall from several stories in 2017 status post exploratory laparotomy, history of splenectomy, history of multiple fractures including cervical, thoracic, lumbar rib fractures associated with his fall many years ago who presents to the emergency room due to complaints of abdominal pain. CT today without evidence of acute pancreatitis but shows pseudocyst as Large cystic mass in the junction of the pancreatic head and body measures 4.8 x 3.9 cm. Developing cyst was noted on the prior CT of 12/03/2019. This is now well-organized and probably represents an intrapancreatic pseudocyst. No fever. Mildly elevated LFTs at 50/67. T bili within range. ALP WNL. Lipase at 181, (previous 490 on 12/02). Review of Systems General: Reports: 10 or more systems reviewed and unremarkable except in HPI and below Const: Denies: fever(s), chills or body aches Eyes: Denies: change in vision, blurry vision or photophobia ENMT: Reports: hoarseness; Denies: throat pain, enlarged tonsils, odynophagia or nasal congestion Card: Denies: chest pain, palpitations, irregular heart rhythm, edema, swelling of feet/ankles, lightheadedness, pre-syncope, dyspnea on exertion or orthopnea Resp: Denies: dyspnea, productive cough, non-productive cough, wheezing, stridor, pain on inspiration, change in phlegm color, hemoptysis or chest congestion GI: Reports: abdominal pain and nausea; Denies: vomiting, hematemesis, coffee ground emesis, dysphagia, heartburn, diarrhea, constipation, GI cramping, change in stool character, hematochezia or melena : Denies: flank pain, dysuria, urinary frequency, urinary urgency, urinary hesitancy or hematuria Musc: Denies: neck pain, back pain, extremity pain, joint swelling, joint warmth or deformity Neuro: Denies: headache(s), numbness in extremities, weakness in extremities, sensory changes, difficulty walking, frequent falls, dizziness, vertigo, behavioral changes, Slurred speech present or seizure-like activity Psych: Denies: anxiety, depression, suicidal ideation or homicidal ideation Endo: Denies: polyuria, polydipsia, tired all the time, cold intolerance or hot flashes Javier/Lymph: Denies: easy bruising or easy bleeding Medications/Allergies Home Medications Medication Instructions Recorded Confirmed Last Taken Type acetaminophen 650 mg PO Q6H PRN #0 tab 11/22/19 05/17/20 Unknown Rx Allergies Allergy/AdvReac Type Severity Reaction Status Date / Time No Known Allergies Allergy Verified 05/17/20 13:26 PFSH Acute PFSH: Medical History C2 cervical fracture C7 cervical fracture History of suicide attempt L4 vertebral fracture Polysubstance abuse Surgical History History of appendectomy History of splenectomy Family History Other Diabetes Social History Smoking and tobacco status: current every day smoker Alcohol intake: current Vitals/I&O/Wt Last Vital Signs Temp 97.7 F 05/17/20 13:22 Pulse 56 L 05/17/20 16:18 Resp 16 05/17/20 16:18 BP 170/111 05/17/20 16:18 Pulse Ox 98 05/17/20 16:18 05/17/20 05/17/20 05/17/20 06:59 14:59 22:59 Intake Total 1000 / 1000 Balance 1000 / 1000 Weight last 48 hrs Weight 86.183 kg Physical Exam Const: COMMON NORMALS: no acute distress, average body habitus, patient oriented x3, no limitations, healthy appearing, alert and well nourished HENMT: COMMON NORMALS: normocephalic and atraumatic HEAD & SCALP: normocephalic and atraumatic Eye: COMMON NORMALS: Equal, round and reactive pupils present, EOMs intact bilaterally, conjunctivae normal and no scleral icterus CONJUNCTIVA: Yes conjunctivae normal PUPIL: Yes Equal, round and reactive pupils present Neck/C-Spine: COMMON NORMALS: no JVD Resp: COMMON NORMALS: normal respiratory effort, No retractions, No use of accessory muscles, clear to auscultation bilaterally and percussion normal AUSCULTATION: clear to auscultation bilaterally PERCUSSION: percussion normal Cardio: COMMON NORMALS: no JVD, regular rate, regular rhythm, S1 normal heart sound present, S2 normal heart sound present, No gallops present (Cardio), No clicks present (Cardio), No murmurs present (Cardio), No rub (Cardio) and Peripheral pulses 2+ throughout RATE: regular rate RHYTHM: regular rhythm HEART SOUNDS: S1 normal heart sound present and S2 normal heart sound present PERIPHERAL PULSES: Peripheral pulses 2+ throughout GI: COMMON NORMALS: Normal to inspection, nondistended, normoactive bowel sounds present, Soft to palpation, non-tender, No hepatosplenomegaly present, no masses and no bruits PALPATION: Yes Soft to palpation and Yes No hepatosplenomegaly present Extremity: COMMON NORMALS: normal to inspection, full ROM, capillary refill normal, no joint enlargement, no clubbing, cyanosis or edema, no calf tenderness and no pedal edema Neuro: COMMON NORMALS: patient oriented x3, CN's II-XII intact bilaterally, moves all extremities, no focal motor deficits, no sensory deficits noted, deep tendon reflexes 2+ bilaterally and gait normal SENSORIUM/ORIENTATION: Yes alert Psych: COMMON NORMALS: mental status grossly normal, Normal thought process present, cooperative, normal affect, speech normal, activity/motor behavior normal, denies hallucinations, denies homicidal ideation and denies suicidal ideation SPEECH: Yes normal speech THOUGHT PROCESS: Normal thought process present Skin: COMMON NORMALS: no rashes or lesions noted, no wounds, turgor normal, no jaundice, no petechiae and no mottling GENERAL SKIN EXAM: no rashes or lesions noted and turgor normal Data : 05/17/20 13:53 05/17/20 13:53 A&P Assessment and plan (1) Pseudocyst of pancreas: Status: Acute (2) History of splenectomy: Status: Acute (3) PTSD (post-traumatic stress disorder): Status: Acute (4) Dehydration: Status: Acute Additional A&P Information Admit to med/surg in observation # Pancreatic pseudocyst with intractable abdominal pain Symptomatic management with pain control with po norco and iv morphine clear liquid diet, can advance as tolerated no evidence of acute pancreatitis Leukocytosis likely reactive, last at 17 on 12/02, monitor with hydration for now. NS @ 75 cc/hr no other signs of systemic sepsis at this time, hold off on antibiotics for now patient has been counselled that he needs to follow up with facilities operator in [place] for definitive managent of pseudocyst and discuss indications and modalities of drainage. Full code DVT ppx: low risk Attestations Medical Necessity Statement*: need for pain management and iv hydration, observation admission Coding Level of Care Code Acute Sign Erector And Repairer for g Fwd Diagnoses Pseudocyst of pancreas K86.3 History of splenectomy Z90.81 PTSD (post-traumatic stress disorder) F43.10 Dehydration E86.0
[2020-05-17] MEDS: sodium chloride 0.9% 1,000 ML 75 ML IV (17:26)
[2020-05-17] MEDS: HYDROcodone-acetaminophen 5-325 mg Tablet 1 TAB PO ×2 (17:31→23:56)
[2020-05-18] VITALS (8 sets, daily range): BP systolic 124–150; BP diastolic 81–99; PULSE 50–62; RESP 12–20; TEMP 36.3–36.7; O2SAT 97–98
[2020-05-18] MEDS: sodium chloride 0.9% 1,000 ML 75 ML IV (01:59)
[2020-05-18] MEDS: morphine 4 mg/mL SDV 1 mL IVP ×3 (02:18→11:23)
[2020-05-18] MEDS: HYDROcodone-acetaminophen 5-325 mg Tablet 1 TAB PO ×2 (04:50→09:22)
[2020-05-18 05:27] LABS: Basophils # 0.1 10^3/uL (0.0-0.1); Basophils % 0.7 %; Eosinophils # 0.3 10^3/uL (0.0-0.8); Hematocrit 39.4 % (42.0-52.0); Lymphocytes # 4.7 10^3/uL (0.8-4.8); Lymphocytes % 46.7 %; Mean Corpuscular Hemoglobin 33.7 pg (28.0-34.0); Mean Corpuscular Volume 102.1 fL (80-94); Monocytes # 0.6 10^3/uL (0.2-0.9); Monocytes % 6.1 %; Neutrophils # 4.29 10^3/uL (1.8-7.7); Neutrophils % 43.1 %; Nucleated Red Blood Cells % 0 %; Platelet Count 303 10^3/cmm (130-400); Red Blood Count 3.86 10^6/uL (4.1-5.3); Red Cell Distribution Width 14.2 % (12.1-15.1)
[2020-05-18 05:45] LABS: Alanine Aminotransferase 41 U/L (0-41); Albumin Level 3.5 g/dL (3.5-5.2); Alkaline Phosphatase 90 IU/L (40-130); Aspartate Amino Transferase 23 U/L (0-40); Blood Urea Nitrogen 9 mg/dL (6-20); Carbon Dioxide 27 mmol/L (22-29); Chloride 104 mmol/L (98-107); Glomerular Filtration Rate 129.9 mL/min (90-130); Glucose 108 mg/dL (65-115); Osmolality Calculated 281 mOsm/kg (285-295); Sodium 136 mmol/L (136-145); Total Bilirubin 0.4 mg/dL (0.15-1.2); Total Protein 5.5 g/dL (6.6-8.7)
[2020-05-18] MEDS: pantoprazole DR 40 mg Tablet PO (09:23)
--- NOTE | 2020-05-18 11:25 | PC.RESP ---
Smoking Cessation information sent to patient.
--- NOTE | 2020-05-18 11:27 | PC.NURSE ---
Patient provided a sandwich at this time.
--- NOTE | 2020-05-18 12:59 | PC.NURSE ---
Reviewed patient's discharge with patient at this time. Patient verbalizes understanding of follow up appointment and was given a prescription for Hydrocodone and that he needed to pick his nausea medication up at [facility] pharmacy. IV removed intact. Patient is A&Ox3. Respirations even and non-labored on room air. Patient ambulated to the the first floor with a steady gait.
--- NOTE | 2020-05-18 14:15 | P.DS_ITS ---
Discharge Providers Date of Admission: 05/17/20 15:32 Date of Discharge: May 18, 2020 Attending Provider at Admission: Rosanne Damon MD Attending Provider at Discharge: Rosanne Damon MD Primary Care Provider: Mahamed Sales MD Diagnoses at Discharge Discharge Diagnosis (1) Pseudocyst of pancreas: Status: Acute (2) History of splenectomy: Status: Acute (3) PTSD (post-traumatic stress disorder): Status: Acute (4) Dehydration: Status: Acute Reason for Visit Reason for Visit: ABD pain Hospital Course Discharge Summary: Elena Hernandez is a 34 year old male with a past medical history of alcohol abuse, alcohol withdrawal, alcohol withdrawal seizures, illicit drug abuse in the past, history of suicide attempt in the past, posttraumatic stress disease, history of fall from several stories in 2017 status post exploratory laparotomy, history of splenectomy, history of multiple fractures including cervical, thoracic, lumbar rib fractures associated with his fall many years ago who presents to the emergency room due to complaints of abdominal pain. CT abdomen without evidence of acute pancreatitis but shows pseudocyst as Large cystic mass in the junction of the pancreatic head and body measures 4.8 x 3.9 cm. Developing cyst was noted on the prior CT of 12/03/2019. This is now well-organized and probably represents an intrapancreatic pseudocyst. No fever. Mildly elevated LFTs at 50/67. T bili within range. ALP WNL. Lipase at 181, (previous 490 on 12/02). Email received symptomatic management during the course of admission with IV fluid hydration and pain management was with morphine and [place]. He did well on this regimen and today his pain was much better. He was extensively counseled as to the nature of the pseudocyst and emphasized the need to follow-up with spanish interpreter/translator in [place] for further treatment options down the line, indications for drainage etc. There was no evidence of infected pseudocyst at this present time. He did have leukocytosis upon presentation which is more likely to be reactive, improved quickly just with IV hydration alone. He was also given a referral to Dr. Esparza's office locally should he be unable to make it to [place]. On day of discharge his abdominal pain is much improved. He is being discharged with prescription for [place] and zofran. Physical Exam Narrative: EXAM NARRATIVE: GEN: Awake, alert and oriented, no acute distress CVS: S1S@ N RS: CTA B/L except crackles over RUL Abd: Soft, nt/nd , bs+ [employer]: no focal neuro deficits Discharge Data Data Completed and Pending: Completed Studies During Hospitalization Category Date Time Status CT abdomen pelvis w con* [id number] Stat Cat Scan 05/17/20 13:45 Completed XR chest 1V sandra ble [id number] Stat Exams 05/17/20 13:45 Completed Labs from last 24 hours 05/18/20 05/18/20 05/17/20 04:44 04:44 15:20 WBC 10.0 RBC 3.86 L Hgb 13.0 Hct 39.4 L MCV 102.1 H MCH 33.7 MCHC 33.0 RDW 14.2 Plt Count 303 MPV 9.0 Neut % (Auto) 43.1 Lymph % (Auto) 46.7 [place] % (Auto) 6.1 Eos % (Auto) 3.0 Baso % (Auto) 0.7 Neut # (Auto) 4.29 Lymph # (Auto) 4.7 [place] # (Auto) 0.6 Eos # (Auto) 0.3 Baso # (Auto) 0.1 Nucleated RBC % (a uto) 0 Nucleated RBCs # 0.0 Sodium 136 Potassium 4.0 Chloride 104 Carbon Dioxide 27 Anion Gap 9.0 BUN 9 Creatinine 0.7 GFR Calculation 129.9 Glucose 108 Calculated Osmolal ity 281 L Lactic Acid Calcium 8.0 L Magnesium Total Bilirubin 0.4 AST 23 ALT 41 Alkaline Phosphata se 90 Total Protein 5.5 L D Albumin 3.5 Globulin 2.0 Triglycerides Lipase Urine Color Yellow Urine Appearance Clear Urine pH 5 Ur Specific Gravit y 1.015 Urine Protein Trace Urine Glucose (UA) Norm Urine Ketones Negative Urine Blood Neg Urine Nitrate Negative Urine Bilirubin Neg Urine Urobilinogen Norm Ur Leukocyte Johana ase Negative Urine RBC None Urine WBC 5-10 H Ur Squamous Epith Cells None Amorphous Sediment Not Reportable Urine Bacteria Trace Urine Mucus 2+ Serum Ketones 05/17/20 05/17/20 13:53 13:53 WBC RBC Hgb Hct MCV MCH MCHC RDW Plt Count MPV Neut % (Auto) Lymph % (Auto) [place] % (Auto) Eos % (Auto) Baso % (Auto) Neut # (Auto) Lymph # (Auto) [place] # (Auto) Eos # (Auto) Baso # (Auto) Nucleated RBC % (a uto) Nucleated RBCs # Sodium 139 Potassium 3.7 Chloride 102 Carbon Dioxide 24 Anion Gap 16.7 BUN 10 Creatinine 0.7 GFR Calculation 129.9 Glucose 103 Calculated Osmolal ity 287 Lactic Acid 1.2 Calcium 9.6 Magnesium 1.6 L Total Bilirubin 0.2 AST 50 H ALT 67 H Alkaline Phosphata se 118 Total Protein 7.1 Albumin 4.5 Globulin 2.6 Triglycerides 166 H Lipase 181 H Urine Color Urine Appearance Urine pH Ur Specific Gravit y Urine Protein Urine Glucose (UA) Urine Ketones Urine Blood Urine Nitrate Urine Bilirubin Urine Urobilinogen Ur Leukocyte Johana ase Urine RBC Urine WBC Ur Squamous Epith Cells Amorphous Sediment Urine Bacteria Urine Mucus Serum Ketones Negative Vitals: Last Vital Signs Temp 97.6 F 05/18/20 12:58 Pulse 61 05/18/20 12:58 Resp 18 05/18/20 12:58 BP 139/99 05/18/20 12:58 Pulse Ox 97 05/18/20 12:58 Discharge Plan Discharge Patient Disposition: Home Condition: Stable Prescriptions: New hydrocodone-acetaminophen 5-325 mg Tablet 1 tab PO Q4H PRN (Reason: Moderate Pain) 7 Days Qty: 28 RF: 0 Zofran 4 mg tablet 4 mg PO Q8H 5 Days Qty: 15 RF: 0 Continued acetaminophen 325 mg Tablet 650 mg PO Q6H PRN (Reason: Mild/Mod Pain Or Temp >/= 101) Qty: 0 RF: 0 Discharge Orders: Discharge Order (Routine); Ordered 05/18/20 Ordered By: Rosanne Damon Referrals: Gutierrez Esparza MD [Physician] - 2 weeks Mahamed Sales MD [Primary Care Provider] - 05/25/20 2:15 pm (hospital discharge follow up for pancreatic pseudocyst.) Discharge Diet: Advance as tolerated, Low Cholesterol and Low Fat Discharge Activity: Resume usual activity Patient Instructions: Hydrocodone/Acetaminophen (By mouth), Ondansetron (By mouth), Pancreatitis (DC), Dehydration (DC) Discharge Date/Time: 05/18/20 12:55 Discharge Attestations Time Spent in Discharge Care*: greater than 30 min Specific Discharge Activities: Specific discharge activities: educating patient Quality Metrics Clinical Quality Measures During this hospital stay, did patient experience: None Coding Level of Care Code Acute Agricultural Service Worker for Chg Fwd Diagnoses Pseudocyst of pancreas K86.3 History of splenectomy Z90.81 PTSD (post-traumatic stress disorder) F43.10 Dehydration E86.0
== END 2020-05-18 12:55 | disposition home or self-care (01) ==
LOC: ER 13:28 → MEDSURG 15:45
PROVIDERS: Family Medicine; Admitting Provider Student in an Organized Health Care Education/Training Program; Emergency Provider Student in an Organized Health Care Education/Training Program; PCP Family Medicine; Visit Provider Student in an Organized Health Care Education/Training Program
DX: K86.3 Pseudocyst of pancreas (principal); Z90.81 Acquired absence of spleen; F43.10 Post-traumatic stress disorder, unspecified; E86.0 Dehydration; F17.210 Nicotine dependence, cigarettes, uncomplicated
CPT/HCPCS: 12345; 36415; 71045; 74177; 80053; 81001; 82009; 83605; 83690; 83735; 84478; 85025; 93005; 96360; 96361; 96374; 96375; 96376; 99283; 99285; G0378; J2270; J2405; J7030; Q9967

== ENCOUNTER → 2020-09-10 09:39 | Outpatient (BNVA) | payer SELFPAY | PROVIDERS: PCP Family Medicine; Visit Provider Family Medicine | DX: R30.9 Painful micturition, unspecified (principal); A64 Unspecified sexually transmitted disease; A56.2 Chlamydial infection of genitourinary tract, unspecified | CPT/HCPCS: 81000; 87491; 87591 ==

== ENCOUNTER 2020-12-27 07:26 | Inpatient (IN) | payer SELFPAY ==
[2020-12-27] VITALS (10 sets, daily range): BP systolic 126–180; BP diastolic 92–116; PULSE 59–98; RESP 16–20; TEMP 36.2–36.6; O2SAT 96–99; BMI 25.7
--- NOTE | 2020-12-27 07:38 | ED_ITS ---
HPI - Abdominal Pain General: Chief Complaint: Abdominal Pain Stated Complaint: ABD pain Time Seen by Provider: 12/27/20 07:27 History of Present Illness: HPI narrative: 35-year-old male presents emergency room with complaint of abdominal pain. Woke up at around 5 AM this morning nausea and vomiting. Patient rarely drinks alcohol last drink 2 days ago. Reports drinking in a pint or more every other day. He is not had hemoptysis. Has no known history of cirrhosis. He has had a prior history of trauma with multiple orthopedic injuries and also had a splenic laceration requiring splenectomy. He denies hematochezia melena hematemesis coffee-ground emesis MD elicited complaint: abdominal pain Onset (ago): hour(s) Pain Consistency: constant Location: LUQ Quality: stabbing Radiation: none Exacerbating factors: nothing Relieving factors: nothing Associated Symptoms: Reports anorexia, bloating, GI cramping and poor appetite; Denies belching, change in bowel habits, change in stool character, chills, coffee ground emesis, constipation, diarrhea, dyspepsia, dysuria, excessive flatus, fever(s), heartburn, hematochezia, hematuria, hematemesis, fecal incontinence, loose stools, melena, nausea, syncope and vomiting Review of Systems Const: Denies: fever(s) or chills ENMT: Denies: throat pain, ear or mastoid pain, nasal discharge or nasal congestion Card: Denies: syncope Resp: Denies: dyspnea, productive cough or non-productive cough GI: Reports: bloating and GI cramping; Denies: nausea, vomiting, hematemesis, coffee ground emesis, heartburn, diarrhea, constipation, belching, excessive flatus, fecal incontinence, change in bowel habits, change in stool character, hematochezia or melena : Denies: dysuria or hematuria Skin/Breast: Denies: rash or pruritus PFSH ED PFSH: Medical History (Updated 12/27/20 @ 13:38 by Jesse Gao MD) Alcohol abuse C2 cervical fracture C7 cervical fracture History of suicide attempt L4 vertebral fracture Pancreatitis, alcoholic, acute Polysubstance abuse PTSD (post-traumatic stress disorder) Surgical History History of appendectomy History of splenectomy Family History Other Diabetes Social History (Updated 12/27/20 @ 07:38 by Davidson Buckley RN) Smoking and tobacco status: current every day smoker Alcohol intake: current Alcohol intake frequency: few times a week Substance/Drug Use: current Substance/Drug use frequency: daily Substance/Drug use type: Marijuana Physical Exam Const: COMMON NORMALS: no acute distress GENERAL APPEARANCE: cooperative and comfortable ORIENTATION/CONSCIOUSNESS: Yes awake, Yes oriented to person, Yes oriented to place and Yes oriented to time HENMT: COMMON NORMALS: normocephalic, atraumatic and hearing grossly normal bilaterally HEAD & SCALP: normocephalic and atraumatic Neck/C-Spine: COMMON NORMALS: no JVD Resp: COMMON NORMALS: normal respiratory effort, No retractions, No use of accessory muscles and clear to auscultation bilaterally AUSCULTATION: clear to auscultation bilaterally Cardio: COMMON NORMALS: no JVD, regular rate, regular rhythm and No murmurs present (Cardio) RATE: regular rate RHYTHM: regular rhythm GI: COMMON NORMALS: Soft to palpation and No hepatosplenomegaly present AUSCULTATION: Yes normoactive bowel sounds PALPATION: Yes Soft to palpation, No Tenderness to palpation present (GI), No Guarding due to palpation present (GI) and Yes No hepatosplenomegaly present Extremity: COMMON NORMALS: normal to inspection, capillary refill normal, no clubbing, cyanosis or edema, no calf tenderness and no pedal edema Neuro: SENSORIUM/ORIENTATION: Yes oriented to person, Yes oriented to place and Yes oriented to time Skin: COMMON NORMALS: no rashes or lesions noted GENERAL SKIN EXAM: no rashes or lesions noted Course Vital Signs: Vital signs: Vital Signs Temperature 97.6 F 12/27/20 12:00 Pulse Rate 68 12/27/20 12:00 Respiratory Rate 16 12/27/20 12:46 Blood Pressure 180/97 12/27/20 12:00 Pulse Oximetry 99 12/27/20 12:00 MDM - Abdominal Pain MDM Narrative: Medical decision making narrative: Acute alcoholic pancreatitis. There is imaging evidence of pancreatitis even though his lipase is relatively low. Keep n.p.o. pain medications antiemetics fluids discussed Dr. Stone orders are written Lab Data: Labs: Lab Results 12/27/20 12/27/20 12/27/20 Range/Units 07:35 07:35 08:05 WBC 13.5 H (4.0-10.0) 10^3/ uL RBC 4.81 (4.1-5.3) 10^6/u L Hgb 16.5 (11.7-16.6) g/dL Hct 47.0 (42.0-52.0) % MCV 97.7 H (80-94) fL MCH 34.3 H (28.0-34.0) pg MCHC 35.1 (30.0-36.0) g/dL RDW 12.9 (12.1-15.1) % Plt Count 339 (130-400) 10^3/c mm MPV 9.2 (7.4-10.4) fL Neut % (Auto) 55.5 % Lymph % (Auto) 30.5 % Sherman % (Auto) 9.2 % Eos % (Auto) 3.8 % Baso % (Auto) 0.5 % Neut # (Auto) 7.48 (1.8-7.7) 10^3/u L Lymph # (Auto) 4.1 (0.8-4.8) 10^3/u L Sherman # (Auto) 1.2 H (0.2-0.9) 10^3/u L Eos # (Auto) 0.5 (0.0-0.8) 10^3/u L Baso # (Auto) 0.1 (0.0-0.1) 10^3/u L Nucleated RBC % (a uto) 0 % Nucleated RBCs # 0.0 /100WBC Specimen Type Arterial Sample Site Radial, left ABG pH 7.43 (7.35-7.45) ABG pCO2 42.5 (35-45) mmHg ABG pO2 70.1 L (80.0-100.0) mmH g ABG HCO3 28.5 H (22-26) mmol/L ABG O2 Saturation 97.5 ABG Base Excess 3.7 H (-2.0-2.0) mmol/ L Laureano Test Pos A-a O2 Gradient 3.5 L (5-10) mmHg Hematocrit 47.5 (42-52) % Hgb O2 Saturation 91.8 L (95-100) % Carboxyhemoglobin 5.8 (0.4-20.1) %THgb Methemoglobin 0.1 L (0.4-1.5) % Total Hemoglobin 15.5 (14-18) g/dL Ionized Calcium 1.2 (1.1-1.4) mmol/L O2 Delivery Device Room air FiO2 21.0 % Supervisor Looping ID Cak Sodium 136 134.0 (136-145) mmol/L Potassium 3.6 3.3 L (3.5-5.1) mmol/L Chloride 99 (98-107) mmol/L Carbon Dioxide 26 (22-29) mmol/L Anion Gap 14.6 (5-19) BUN 8 (6-20) mg/dL Creatinine 0.8 (0.7-1.2) mg/dL GFR Calculation 110.7 (90-130) mL/min Glucose 117 H 113.0 (65-115) mg/dL Calculated Osmolal ity 281 L (285-295) mOsm/k g Calcium 9.0 (8.5-10.5) mg/dL Total Bilirubin 0.6 (0.15-1.2) mg/dL AST 56 H (0-40) U/L ALT 75 H (0-41) U/L Alkaline Phosphata se 126 (40-130) IU/L Total Protein 7.6 (6.6-8.7) g/dL Albumin 4.5 (3.5-5.2) g/dL Globulin 3.1 (1.3-4.6) g/dL Lipase 118 H (13-60) U/L Discharge Plan Discharge Admit Provider: Jesse Gao Clinical Impression: Pancreatitis, alcoholic, acute, Pseudocyst of pancreas, Elevated transaminase level, History of splenectomy, Alcohol abuse Condition: Stable Coding Level of Care Code 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
--- NOTE | 2020-12-27 07:40 | CT_ITS ---
WS: [id number] CT ABDOMEN AND PELVIS WITH CONTRAST HISTORY: Abdominal pain. TECHNIQUE: Imaging performed of the abdomen and pelvis with IV contrast. Single phase imaging of the abdomen. Coronal and sagittal reformats are submitted. All CT scans at [facility] use at least one of these dose optimization techniques: automated exposure control; mA and/or kV adjustment per patient size (includes targeted exams where dose is matched to clinical indication); or iterativ e reconstruction. IV CONTRAST: Omnipaque 300; 95 mL IV. Oral contrast: No DLP: 1371.19 mGy.cm COMPARISON: 05/17/2020 Lower thorax: Lung bases are clear. Heart is normal size. Small hiatal hernia. Liver/biliary system: Normal size liver. Area of decreased attenuation in the posterior LEFT lobe may be an area of hepatic steatosis. Stable since 11/18/2019. Gallbladder: Normal. No gallstones or wall thickening. No pericholecystic fluid. Pancreas: Mild peripancreatic edema and fluid. Inflammation is more prominent around the body and adan l. Again noted is a well-circumscribed low-attenuation mass at the junction between the body and head the pancreas measuring 4.3 x 3.8 cm. This cystic mass is new since 11/18/2019 and stable since 2019. No duct dilatation. Spleen: Prior splenectomy. Adrenal glands: Normal. Right kidney: Normal. Left kidney: Normal size kidney. 2 small to characterize hypoattenuating nodule in the mid kidney. Aorta: Normal. Lymphadenopathy: None. Free fluid: Small amount of fluid around the pancreas. No free fluid in the pelvis. GI tract: Appendix is not identified. History of prior appendectomy. No GI tract obstruction. Abdominal wall: Unremarkable abdominal wall. No hernia. Pelvis: No free fluid or adenopathy within the pelvis. Bones: Mild degenerative disc sagittal [address]/CT abdomen pelvis w con* [id number] IMPRESSION: 1. Mild acute pancreatitis surrounding the body and tail of the pancreas. No a reas of necrosis. 2. No change in the round cystic mass at the junction of body and tail of the pancreas measuring 4.3 x 3.8 cm. Stable since 05/17/2020. Differential is a genesis ign cystic pancreatic neoplasm or intrapancreatic pseudocyst. There is no evide nce for infection. 3. Prior appendectomy.
[2020-12-27 07:53] LABS: Basophils # 0.1 10^3/uL (0.0-0.1); Basophils % 0.5 %; Eosinophils # 0.5 10^3/uL (0.0-0.8); Eosinophils % 3.8 %; Hemoglobin 16.5 g/dL (11.7-16.6); Lymphocytes # 4.1 10^3/uL (0.8-4.8); Lymphocytes % 30.5 %; Mean Corpuscular HGB Conc 35.1 g/dL (30.0-36.0); Mean Corpuscular Hemoglobin 34.3 pg (28.0-34.0); Mean Corpuscular Volume 97.7 fL (80-94); Mean Platelet Volume 9.2 fL (7.4-10.4); Monocytes # 1.2 10^3/uL (0.2-0.9); Monocytes % 9.2 %; Neutrophils # 7.48 10^3/uL (1.8-7.7); Neutrophils % 55.5 %; Nucleated Red Blood Cells % 0 %; Platelet Count 339 10^3/cmm (130-400); Red Blood Count 4.81 10^6/uL (4.1-5.3); Red Cell Distribution Width 12.9 % (12.1-15.1); White Blood Count 13.5 10^3/uL (4.0-10.0)
[2020-12-27 08:04] LABS: Alanine Aminotransferase 75 U/L (0-41); Albumin Level 4.5 g/dL (3.5-5.2); Alkaline Phosphatase 126 IU/L (40-130); Anion Gap 14.6 (5-19); Aspartate Amino Transferase 56 U/L (0-40); Blood Urea Nitrogen 8 mg/dL (6-20); Carbon Dioxide 26 mmol/L (22-29); Chloride 99 mmol/L (98-107); Globulin 3.1 g/dL (1.3-4.6); Glomerular Filtration Rate 110.7 mL/min (90-130); Glucose 117 mg/dL (65-115); Lipase 118 U/L (13-60); Osmolality Calculated 281 mOsm/kg (285-295); Potassium 3.6 mmol/L (3.5-5.1); Sodium 136 mmol/L (136-145); Total Bilirubin 0.6 mg/dL (0.15-1.2); Total Protein 7.6 g/dL (6.6-8.7)
[2020-12-27] MEDS: iohexol 300 mg/mL 100 mL Btl IV (08:05)
[2020-12-27] MEDS: morphine 4 mg/mL SDV 1 mL IVP ×3 (08:08→10:20)
[2020-12-27] MEDS: ondansetron 2 mg/ML SDV 2 mL 4 MG IVP (08:11)
[2020-12-27] MEDS: famotidine 20 mg/2 mL INJ 40 MG IVP (08:11)
[2020-12-27 08:19] LABS: ABG PCO2 42.5 mmHg (35-45); ABG PH Result 7.43 (7.35-7.45); Base Excess ABG 3.7 mmol/L (-2.0-2.0); HCO3 ABG 28.5 mmol/L (22-26); Oxygen Saturation ABG 97.5; PO2 ABG 70.1 mmHg (80.0-100.0)
[2020-12-27 08:20] LABS: Arterial Blood Gas Hematocrit 47.5 % (42-52); Blood Gas Operator Identificat CAK; Potassium Level - ABG 3.3 mmol/L (3.5-5.0)
[2020-12-27 08:21] LABS: Carboxyhemoglobin 5.8 %THgb (0.4-20.1); HGB O2 Sat 91.8 % (95-100); Ionized Calcium Level - ABG 1.2 mmol/L (1.1-1.4); Methemoglobin 0.1 % (0.4-1.5); Total Hemoglobin 15.5 g/dL (14-18)
[2020-12-27] MEDS: sodium chloride 0.9% 1,000 ML 999 ML IV ×2 (08:28→10:21)
[2020-12-27 09:03] LABS: Alveolar-Arterial Oxygen Gradi 3.5 mmHg (5-10); Blood Gas Allen Test Pos; Blood Gas Sample Site Radial, left; Blood Gas Sample Type Arterial; Oxygen Device ROOM AIR
[2020-12-27 11:20] LABS: Add Urine Microscopic? YES; Bilirubin Urine 1+ (Negative); Blood Urine Neg (Negative); Glucose Urine UA Norm (Normal); Ketones Urine Negative (Negative); Leukocyte Esterase Urine Negative (Negative); Nitrate Urine Negative (Negative); Protein Urine 1+ (Negative); Specific Gravity, Urine 1.007 (1.005-1.030); Urine Appearance Clear (CLEAR); Urine Color Yellow (Yellow); Urobilinogen Urine Norm (Negative); pH Urine 7 (5-7)
[2020-12-27 11:37] LABS: Add Urine Culture? No; Bacteria Urine TRACE /hpf; Mucus Urine 1+ /hpf; RBC Urine 0-4 /hpf (0-2)
[2020-12-27] MEDS: morphine 4 mg/mL SDV 1 mL 2 MG IVP ×4 (12:46→21:33)
--- NOTE | 2020-12-27 13:33 | PM.HP ---
Providers/Chief Complaint Admitting Physician: Jesse Gao MD Primary Care Provider: Mahamed Sales MD Chief Complaint: chest plain History of Present Illness Elena Hernandez is a 35 year old male who presents with abdominal pain starting this morning. He reports he had some vomiting, around 5 episodes or so. No blood. Reports had a bowel movement yesterday that was soft and was not indicative of constipation. He reports no blood in his stool or black or tarry stools. He has had pancreatitis before and this is similar discomfort. He reports it is more on the left side, going to his epigastric area. He denies any fevers, personal history of Covid, vaccination for Covid, or exposure to Covid. Of note last hospital stay he was diagnosed with pancreatic pseudocyst which had been stable for some time. He did not keep follow-up with gastroenterology. He does continue to drink. Last alcoholic beverage 2 days ago. He denies feeling like he is going through any withdrawal. Review of Systems General: Reports: 10 or more systems reviewed and unremarkable except in HPI and below Const: Denies: fever(s) or chills Eyes: Denies: change in vision ENMT: Denies: throat pain Card: Denies: chest pain Resp: Reports: dyspnea GI: Reports: abdominal pain, nausea and vomiting; Denies: hematemesis, constipation, hematochezia or melena : Denies: flank pain Musc: Denies: extremity pain Skin/Breast: Denies: rash Neuro: Denies: headache(s) Psych: Reports: depression (Reports history of PTSD); Denies: anxiety Endo: Denies: polyuria Javier/Lymph: Denies: easy bruising All/Imm: Denies: urticaria Medications/Allergies Home Medications Medication Instructions Recorded Confirmed Last Taken Type No Known Home Medications 12/27/20 12/27/20 Unknown History Allergies Allergy/AdvReac Type Severity Reaction Status Date / Time No Known Allergies Allergy Verified 12/27/20 08:36 PFSH Acute PFSH: Medical History (Updated 12/27/20 @ 13:38 by Jesse Gao MD) Alcohol abuse C2 cervical fracture C7 cervical fracture History of suicide attempt L4 vertebral fracture Pancreatitis, alcoholic, acute Polysubstance abuse PTSD (post-traumatic stress disorder) Surgical History History of appendectomy History of splenectomy Family History Other Diabetes Social History (Updated 12/27/20 @ 13:38 by Jesse Gao MD) Smoking and tobacco status: current every day smoker Alcohol intake: current Alcohol intake frequency: few times a week Substance/Drug Use: current Substance/Drug use frequency: daily Substance/Drug use type: Marijuana Vitals/I&O/Wt Last Vital Signs Temp 97.6 F 12/27/20 12:00 Pulse 68 12/27/20 12:00 Resp 16 12/27/20 12:46 BP 180/97 12/27/20 12:00 Pulse Ox 99 12/27/20 12:00 Weight last 48 hrs Weight 83.915 kg Physical Exam Narrative: EXAM NARRATIVE: General exam is a white male, reporting some pain in his upper abdomen HEENT: Pupils equally round. Oropharynx clear. Neck is supple no lymphadenopathy or thyromegaly Cardiovascular regular rate and rhythm without murmur, no S3 or S4 Lungs few faint wheezes bilaterally. No crackles Abdomen is soft. Positive bowel sounds. Tenderness left upper quadrant and epigastric area, large scar noted was deferred Extremities no cyanosis clubbing or edema, cap refill brisk Skin without rash Neuro no focal deficits. Data : 12/27/20 07:35 12/27/20 07:35 Micro: Microbiology 12/27/20 08:25 Blood Culture - Preliminary Blood SPECIMEN COLLECTED 12/27/20 08:25 Blood Culture - Preliminary Blood SPECIMEN COLLECTED Other data: Abdominal pelvis CT demonstrates pancreatitis, cystic mass junction of body of tail of pancreas with dimensions of approximately 4 x 4 cm ABG demonstrated pH 7.43, PCO2 of 42, PO2 of 70. AST and ALT are elevated at 56 and 75. Alk phos and bilirubin are normal Lipase 118 Urinalysis negative A&P Assessment and plan (1) Pancreatitis, alcoholic, acute: N.p.o. with the exception of ice chips and medicines for now. When he becomes hungry consider advancing diet to clear liquids. Hydration Pain control with morphine Check serum triglyceride level in the morning Etiology may be alcohol, or previous traumatic pancreatic injury with partial resection from fall Nausea control with Zofran Status: Acute (2) Alcohol abuse: Monitor for alcohol withdrawal. He is his second day from drinking according to the patient. He reports he usually does not have withdrawal. Initiate thiamine p.o., folate Status: Acute (3) Pseudocyst of pancreas: Discussed patient gastroenterology follow-up would be indicated. He did not keep follow-up from his last hospital stay. Status: Acute (4) Elevated transaminase level: Check hepatitis panel Repeat levels in the morning Status: Acute Additional A&P Information History of GERD. Initiate Protonix twice daily Full code Lovenox for DVT prophylaxis Attestations Medical Necessity Statement*: Will need less than 2 midnight stay for evaluation and treatment of pancreatitis, as he may make quick improvement with treatment. Coding Level of Care Code Acute Flight Operations Engineer for [facility] Diagnoses Pancreatitis, alcoholic, acute K85.20 Alcohol abuse F10.10 Pseudocyst of pancreas K86.3 Elevated transaminase level R74.0
--- NOTE | 2020-12-27 13:36 | XR_ITS ---
WS: [id number] Exam: XR chest 1V portable [id number] Date/Time of Exam: 12/27/2020 1:38 PM Reason For Exam: short of breath Comparison 05/17/2020. The lungs are clear and fully expanded. Normal cardiomediastinal structures and bony elements. Plate and screw fixation of a healed fracture of the right clavicle. No pleural effusions. XR/XR chest 1V portable [id number] IMPRESSION: 1. No acute cardiopulmonary finding. No change.
[2020-12-27 15:03] LABS: Hepatitis A Antibody IgM Non-Reactive (Nonreactive); Hepatitis B Core IgM Non-Reactive (Nonreactive); Hepatitis B Surface Antigen Non-Reactive (Nonreactive); Hepatitis C Virus Antibody Non-Reactive (Nonreactive)
[2020-12-27] MEDS: folic acid 1 mg Tablet PO (15:12)
[2020-12-27] MEDS: enoxaparin 40 mg/0.4 mL Syringe SUBCUT (15:12)
[2020-12-27] MEDS: D5-NS 0.45% + KCL 20 mEq 20 MEQ/1,000 ML BAG 100 MEQ IV (15:12)
[2020-12-27] MEDS: thiamine 100 mg Tablet PO (15:12)
[2020-12-27] MEDS: pantoprazole DR 40 mg Tablet PO (17:25)
[2020-12-27 17:58] LABS: Folate Level 9.2 ng/mL (4.5-32.2)
[2020-12-27] MEDS: nicotine 21 mg Patch 1 PATCH TRANSDERMA (18:44)
[2020-12-28] VITALS (15 sets, daily range): BP systolic 119–177; BP diastolic 69–111; PULSE 55–88; RESP 16–20; TEMP 36.4–37; O2SAT 95–100
[2020-12-28] MEDS: morphine 4 mg/mL SDV 1 mL 2 MG IVP (00:31)
[2020-12-28] MEDS: D5-NS 0.45% + KCL 20 mEq 20 MEQ/1,000 ML BAG 100 MEQ IV ×3 (00:33→23:06)
[2020-12-28] MEDS: HYDROmorphone 1 mg/mL INJ 1 mL 0.5 MG IVP ×4 (01:13→10:33)
[2020-12-28 05:26] LABS: Basophils % 0.2 %; Eosinophils # 0.1 10^3/uL (0.0-0.8); Eosinophils % 0.6 %; Hematocrit 46.5 % (42.0-52.0); Hemoglobin 15.9 g/dL (11.7-16.6); Lymphocytes # 2.3 10^3/uL (0.8-4.8); Lymphocytes % 13.5 %; Mean Corpuscular HGB Conc 34.2 g/dL (30.0-36.0); Mean Corpuscular Hemoglobin 34.3 pg (28.0-34.0); Mean Corpuscular Volume 100.4 fL (80-94); Mean Platelet Volume 9.4 fL (7.4-10.4); Monocytes # 1.7 10^3/uL (0.2-0.9); Monocytes % 10.1 %; Neutrophils # 12.92 10^3/uL (1.8-7.7); Neutrophils % 75.1 %; Nucleated Red Blood Cells % 0 %; Platelet Count 299 10^3/cmm (130-400); Red Blood Count 4.63 10^6/uL (4.1-5.3); Red Cell Distribution Width 12.8 % (12.1-15.1); White Blood Count 17.2 10^3/uL (4.0-10.0)
[2020-12-28 05:52] LABS: Alanine Aminotransferase 44 U/L (0-41); Albumin Level 3.7 g/dL (3.5-5.2); Alkaline Phosphatase 106 IU/L (40-130); Anion Gap 10.6 (5-19); Aspartate Amino Transferase 23 U/L (0-40); Blood Urea Nitrogen 6 mg/dL (6-20); Calcium 8.3 mg/dL (8.5-10.5); Carbon Dioxide 27 mmol/L (22-29); Chloride 99 mmol/L (98-107); Globulin 2.3 g/dL (1.3-4.6); Glomerular Filtration Rate 154.2 mL/min (90-130); Glucose 121 mg/dL (65-115); Magnesium 1.9 mg/dL (1.7-2.3); Osmolality Calculated 275 mOsm/kg (285-295); Potassium 3.6 mmol/L (3.5-5.1); Sodium 133 mmol/L (136-145); Total Bilirubin 0.5 mg/dL (0.15-1.2); Triglycerides 139 mg/dL (0-150)
[2020-12-28 06:10] LABS: Lipase 602 U/L (13-60)
--- NOTE | 2020-12-28 08:43 | PM.PN ---
Subjective Subjective: Interval history: Elena reports his abdomen is hurting quite a bit. He does feel a little hungry. He was changed from morphine to Dilaudid last night. States he vomited a little bit last night, but does not feel as nauseous this morning. Medications: Reviewed: Yes Vitals/I&O/Wt Last Vital Signs Temp 97.6 F 12/28/20 07:43 Pulse 55 L 12/28/20 07:43 Resp 16 12/28/20 07:43 BP 169/93 12/28/20 07:43 Pulse Ox 100 12/28/20 07:43 12/27/20 12/28/20 12/28/20 22:59 06:59 14:59 Intake Total 2240 / 2240 1175 / 3415 Balance 2240 / 2240 1175 / 3415 Weight last 48 hrs Weight 83.915 kg Physical Exam Narrative: EXAM NARRATIVE: General exam no obvious distress Neck is supple no lymphadenopathy or thyromegaly Cardiovascular regular rate and rhythm without murmur, no S3 or S4 Lungs few faint wheezes bilaterally. No crackles Abdomen is soft. Positive bowel sounds. Some generalized tenderness, more in the upper quadrants Extremities no cyanosis clubbing or edema, cap refill brisk Data : 12/28/20 04:56 12/28/20 04:56 Micro: Microbiology 12/27/20 08:25 Blood Culture - Preliminary Blood NEGATIVE TO DATE 12/27/20 08:25 Blood Culture - Preliminary Blood NEGATIVE TO DATE A&P Assessment and plan (1) Pancreatitis, alcoholic, acute: He is having some hunger, and wanting to change his diet. Change to clear liquids. Continue hydration Pain control changed to Dilaudid last night Triglyceride level not excessively elevated Etiology may be alcohol, or previous traumatic pancreatic injury with partial resection from fall in the past Nausea control with Zofran Add Colace. Patient reports he feels as if there is a component of constipation. Status: Acute (2) Alcohol abuse: Monitor for alcohol withdrawal. He is his second day from drinking according to the patient. He reports he usually does not have withdrawal. Initiate thiamine p.o., folate Today there is no evidence of withdrawal Status: Acute (3) Pseudocyst of pancreas: Discussed patient gastroenterology follow-up would be indicated. He did not keep follow-up from his last hospital stay. Status: Acute (4) Elevated transaminase level: Hepatitis panel was checked and negative LFTs improving Status: Acute Additional A&P Information History of GERD. Initiate Protonix twice daily Full code Lovenox for DVT prophylaxis Not appropriate for discharge. Still having significant pain. Requiring hydration, IV pain medication. Change to regular admission. Note that lipase is higher today. Attestations Medical Necessity Statement*: Needs continued hospitalization for treatment of acute pancreatitis Coding Level of Care Code Acute Sexual Assault Counselor for [facility] Diagnoses Pancreatitis, alcoholic, acute K85.20 Alcohol abuse F10.10 Pseudocyst of pancreas K86.3 Elevated transaminase level R74.0
[2020-12-28] MEDS: nicotine 21 mg Patch 1 PATCH TRANSDERMA (08:55)
[2020-12-28] MEDS: folic acid 1 mg Tablet PO (08:55)
[2020-12-28] MEDS: thiamine 100 mg Tablet PO (08:55)
[2020-12-28] MEDS: pantoprazole DR 40 mg Tablet PO ×2 (08:55→17:51)
[2020-12-28] MEDS: docusate sodium 100 mg Capsule PO ×2 (08:59→17:51)
[2020-12-28] MEDS: HYDROcodone-acetaminophen 5-325 mg Tablet 1 TAB PO ×2 (12:57→16:56)
--- NOTE | 2020-12-28 12:57 | PC.CHAP ---
Pastoral Care Encounter/Spiritual Assessment Type of Contact [] Declined metallurgical lab technician visit [] Patient/Family/Request visit [] Outpatient visit [] Follow-up visit [] Physician referral [] Code/Alert [] Routine visit [] Staff referral [] Actively dying [xx] Patient sleeping [] Family support [] [] Out of room [] Palliative care [] [] Receiving care in room [] Pre-surgical visit [] Trauma [] Long length of stay [] ICU visit [xx] Other: Patient sedated Relational/Emotional Strength [] Patient feels connected with others/family/visitors/staff [] Distress [] Loneliness/isolation [] Abandonment Spirituality of Patient [] Person of Mary Lou [] Attends Mosque of their Mary Lou [] Believes in Prayer [] Reads Bible or Anglican materials [] There are Spiritual issues to be addressed Draw In Hand Interventions [] Prayer [] Active listening [] Non-anxious presence [] Spiritual/emotional support [] Crisis/trauma care [] Spiritual counseling [] Bereavement support [] Provided bereavement packet [] Provided Bible/devotional materials [] Provided toy/stuffed animal, coloring book to patient or family member [] Provided Communion [] Anointing/[place] [] Salvation [] Completed spiritual assessment [] Other: Impact on Illness or Injury [] Angry [] Fearful [] Anxious [] Often cries [] Exhaustion [] Unable to work [] Unable to attend taoism [] Unable to walk/stand [] Unable to read [] Unable to drive [] Unable to eat/drink [] Unable to sleep [] Unable to be with family [] Patient intubated [] Other: Summary Follow up needed Time spent with patient 1 minute
--- NOTE | 2020-12-28 14:03 | PC.RESP ---
Smoking Cessation information sent to patient.
[2020-12-28] MEDS: HYDROmorphone 1 mg/mL INJ 1 mL IVP ×2 (14:26→19:37)
[2020-12-28] MEDS: LORazepam 2 mg/mL INJ 1 mL 1 MG IVP (17:52)
[2020-12-29] VITALS (13 sets, daily range): BP systolic 115–166; BP diastolic 77–101; PULSE 80–105; RESP 14–18; TEMP 36.2–36.9; O2SAT 94–98
[2020-12-29] MEDS: HYDROmorphone 1 mg/mL INJ 1 mL IVP ×5 (00:05→18:42)
[2020-12-29] MEDS: HYDROcodone-acetaminophen 5-325 mg Tablet 1 TAB PO ×5 (01:43→22:56)
[2020-12-29 07:05] LABS: Basophils % 0.2 %; Eosinophils # 0.3 10^3/uL (0.0-0.8); Eosinophils % 1.6 %; Lymphocytes % 12.7 %; Mean Corpuscular HGB Conc 34.8 g/dL (30.0-36.0); Mean Corpuscular Hemoglobin 34.5 pg (28.0-34.0); Mean Corpuscular Volume 99.1 fL (80-94); Mean Platelet Volume 9.9 fL (7.4-10.4); Monocytes # 1.6 10^3/uL (0.2-0.9); Monocytes % 9.8 %; Neutrophils # 12.15 10^3/uL (1.8-7.7); Neutrophils % 75.3 %; Nucleated Red Blood Cells % 0 %; Platelet Count 320 10^3/cmm (130-400); Red Blood Count 4.64 10^6/uL (4.1-5.3); Red Cell Distribution Width 12.5 % (12.1-15.1); White Blood Count 16.1 10^3/uL (4.0-10.0)
[2020-12-29 07:35] LABS: Alanine Aminotransferase 31 U/L (0-41); Albumin Level 3.3 g/dL (3.5-5.2); Alkaline Phosphatase 109 IU/L (40-130); Aspartate Amino Transferase 18 U/L (0-40); Blood Urea Nitrogen 3 mg/dL (6-20); Calcium 8.7 mg/dL (8.5-10.5); Carbon Dioxide 25 mmol/L (22-29); Chloride 99 mmol/L (98-107); Globulin 2.9 g/dL (1.3-4.6); Glomerular Filtration Rate 190.3 mL/min (90-130); Glucose 97 mg/dL (65-115); Lipase 179 U/L (13-60); Osmolality Calculated 276 mOsm/kg (285-295); Sodium 135 mmol/L (136-145); Total Bilirubin 0.7 mg/dL (0.15-1.2); Total Protein 6.2 g/dL (6.6-8.7)
[2020-12-29] MEDS: multivitamin therapeutic Tablet 1 TAB PO (08:09)
[2020-12-29] MEDS: docusate sodium 100 mg Capsule PO ×2 (08:09→17:11)
[2020-12-29] MEDS: thiamine 100 mg Tablet PO (08:09)
[2020-12-29] MEDS: pantoprazole DR 40 mg Tablet PO ×2 (08:10→17:11)
[2020-12-29] MEDS: folic acid 1 mg Tablet PO (08:10)
--- NOTE | 2020-12-29 13:23 | PM.PN ---
Subjective Subjective: Interval history: Patient was seen and examined this morning, is still complaining of significant left upper quadrant abdominal pain.Not much improved from yesterday. Medications: Reviewed: Yes Vitals/I&O/Wt Last Vital Signs Temp 98.5 F 12/29/20 11:22 Pulse 90 12/29/20 11:22 Resp 18 12/29/20 11:22 BP 134/89 12/29/20 11:22 Pulse Ox 98 12/29/20 11:22 12/28/20 12/29/20 12/29/20 22:59 06:59 14:59 Intake Total 1240 / 2520 360 / 360 Balance 1240 / 2520 360 / 360 Physical Exam HENMT: COMMON NORMALS: normocephalic and atraumatic HEAD & SCALP: normocephalic and atraumatic Chest: CHEST: Yes Symmetrical chest wall rise Resp: COMMON NORMALS: clear to auscultation bilaterally EFFORT & INSPECTION: Yes symmetric chest movement AUSCULTATION: clear to auscultation bilaterally Cardio: COMMON NORMALS: regular rate, regular rhythm, S1 normal heart sound present, S2 normal heart sound present, No gallops present (Cardio), No murmurs present (Cardio), No rub (Cardio) and Peripheral pulses 2+ throughout RATE: regular rate RHYTHM: regular rhythm HEART SOUNDS: S1 normal heart sound present and S2 normal heart sound present PERIPHERAL PULSES: Peripheral pulses 2+ throughout GI: COMMON NORMALS: Normal to inspection, nondistended, normoactive bowel sounds present AUSCULTATION: Yes normoactive bowel sounds RECTAL EXAM: Yes deferred OTHER: LUQ Abdominal Tenderness Present on deep palpation,no guarding, no rigidity, no rebound tenderness,rest soft, non tender. Data : 12/29/20 06:05 12/29/20 06:05 Micro: Microbiology 12/27/20 08:25 Blood Culture - Preliminary Blood NEGATIVE TO DATE 12/27/20 08:25 Blood Culture - Preliminary Blood NEGATIVE TO DATE A&P Assessment and plan (1) Pancreatitis, alcoholic, acute: Currently tolerating CLD will try to advance will encourage oral intake. I.V Hydration has been discontinued. On Dilaudid 1 Mg I.V Q4H PRN On [place] 1 tab po Q4H PRN Triglyceride level not excessively elevated Etiology may be alcohol, or previous traumatic pancreatic injury with partial resection from fall in the past Nausea control with Zofran Colace 100 MG PO BID Status: Acute (2) Alcohol abuse: Monitor for alcohol withdrawal. He is his second day from drinking according to the patient. He reports he usually does not have withdrawal. Initiate thiamine p.o., folate Today there is no evidence of withdrawal Status: Acute (3) Pseudocyst of pancreas: Discussed patient gastroenterology follow-up would be indicated. He did not keep follow-up from his last hospital stay. Status: Acute (4) Elevated transaminase level: Hepatitis : Negative LFTs : Normal Status: Acute Additional A&P Information History of GERD. On Protonix twice daily. Full code Lovenox for DVT prophylaxis Not appropriate for discharge. Still having significant pain. Requiring , IV pain medication. Attestations Medical Necessity Statement*: Patient needs to be in hospital for the management of acute pancreatitis. 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
[2020-12-29] MEDS: enoxaparin 40 mg/0.4 mL Syringe SUBCUT (14:48)
--- NOTE | 2020-12-29 14:51 | PC.NURSE ---
In room to give patient scheduled medications. Patient is sitting in his bed playing on his phone. Patient states, My pain medications was due at 12:10 and I have been a 10 for the last 2 1/2 hours. I have told 3 different people that I needed something for pain. I told the patient I was sorry and at this time the Hydrocodone is due to be given. Patient states, No I don't want the pill I want the IV stuff. IV Hydromorphone given at this time.
--- NOTE | 2020-12-29 17:18 | PC.NURSE ---
In room to give regular medications patient is sitting in bed watching TV on his phone. Patient states, I am starting to hurt and I can not have my Hydromorphone until 6:45 pm could I have a Hydrocodone now. My pain is a 8/10. Pain medication given.
--- NOTE | 2020-12-29 18:38 | PC.NURSE ---
Patient walking around in the hallways for several minutes. Patient stopped at the nurses station and asked this nurse to bring him his pain medication at this time as he is tired of walking and his pain is a 9/10. When entering the room patient is sitting in his bed watching his phone. Medications given per orders.
--- NOTE | 2020-12-29 19:20 | PC.NURSE ---
Report to Alicia SOTO at this time.
--- NOTE | 2020-12-29 22:57 | PC.NURSE ---
This RN had to educate patient on importance of trying PO pain medication before IV. Patient states that his pain is a 10/10, not showing any signs of pain distress, playing on his phone, and denying that hydrocodone will work. Educated patient on the importance of trying to tolerate some pain as narcotics can cause more harm than help. Patient verbalized understanding.
[2020-12-30] VITALS (8 sets, daily range): BP systolic 126–152; BP diastolic 72–78; PULSE 65–96; RESP 16–18; TEMP 36.4–37.4; O2SAT 95–97
[2020-12-30] MEDS: HYDROmorphone 1 mg/mL INJ 1 mL IVP ×3 (00:40→09:47)
--- NOTE | 2020-12-30 00:45 | PC.NURSE ---
Educated patient on the appropriate use of the numerical pain scale. Patient verbalized understanding.
[2020-12-30 06:26] LABS: Basophils # 0.1 10^3/uL (0.0-0.1); Basophils % 0.7 %; Eosinophils # 0.5 10^3/uL (0.0-0.8); Eosinophils % 4.7 %; Hematocrit 48.9 % (42.0-52.0); Hemoglobin 16.2 g/dL (11.7-16.6); Lymphocytes # 3.6 10^3/uL (0.8-4.8); Lymphocytes % 33.1 %; Mean Corpuscular HGB Conc 33.1 g/dL (30.0-36.0); Mean Corpuscular Hemoglobin 34.8 pg (28.0-34.0); Mean Corpuscular Volume 104.9 fL (80-94); Mean Platelet Volume 10.5 fL (7.4-10.4); Monocytes # 1.2 10^3/uL (0.2-0.9); Monocytes % 10.6 %; Neutrophils % 50.4 %; Nucleated Red Blood Cells % 0 %; Platelet Count 309 10^3/cmm (130-400); Red Blood Count 4.66 10^6/uL (4.1-5.3); White Blood Count 10.9 10^3/uL (4.0-10.0)
[2020-12-30] MEDS: HYDROcodone-acetaminophen 5-325 mg Tablet 1 TAB PO (08:05)
[2020-12-30] MEDS: pantoprazole DR 40 mg Tablet PO (08:05)
[2020-12-30] MEDS: thiamine 100 mg Tablet PO (08:05)
[2020-12-30] MEDS: multivitamin therapeutic Tablet 1 TAB PO (08:05)
[2020-12-30] MEDS: folic acid 1 mg Tablet PO (08:05)
[2020-12-30] MEDS: docusate sodium 100 mg Capsule PO (08:05)
[2020-12-30] MEDS: nicotine 21 mg Patch 1 PATCH TRANSDERMA (08:06)
[2020-12-30 10:24] LABS: Alanine Aminotransferase 27 U/L (0-41); Albumin Level 3.9 g/dL (3.5-5.2); Alkaline Phosphatase 115 IU/L (40-130); Blood Urea Nitrogen 6 mg/dL (6-20); Calcium 8.8 mg/dL (8.5-10.5); Carbon Dioxide 24 mmol/L (22-29); Chloride 99 mmol/L (98-107); Globulin 2.9 g/dL (1.3-4.6); Glomerular Filtration Rate 129.1 mL/min (90-130); Glucose 105 mg/dL (65-115); Osmolality Calculated 278 mOsm/kg (285-295); Sodium 135 mmol/L (136-145); Total Bilirubin 0.8 mg/dL (0.15-1.2); Total Protein 6.8 g/dL (6.6-8.7)
[2020-12-30 10:30] LABS: Aspartate Amino Transferase 22 U/L (0-40)
--- NOTE | 2020-12-30 10:48 | PM.DCS ---
Discharge Providers Date of Admission: 12/28/20 08:43 Date of Discharge: December 30, 2020 Attending Provider at Admission: Jesse Gao MD Attending Provider at Discharge: Kvng Ryan MD Primary Care Provider: Mahamed Sales MD Diagnoses at Discharge Discharge Diagnosis (1) Pancreatitis, alcoholic, acute: Status: Resolved (2) Alcohol abuse: Status: Chronic (3) Pseudocyst of pancreas: Status: Acute (4) Elevated transaminase level: Status: Resolved Reason for Visit Reason for Visit: chest plain Hospital Course Hospital Course 35-year-old male with past medical history of alcohol abuse, pancreatitis presented with chief complaint of abdominal pain, as well as nausea and vomiting. Upon arrival in the ER he was worked up for above-mentioned complaint CT abdomen and pelvis without contrast.:Mild acute pancreatitis surrounding the body and tail of the pancreas. No areas of necrosis.No change in the round cystic mass at the junction of body and tail of the pancreas measuring 4.3 x 3.8 cm. Stable since 05/17/2020. Differential is a benign cystic pancreatic neoplasm or intrapancreatic pseudocyst. There is no evidence for infection. ABG demonstrated pH 7.43, PCO2 of 42, PO2 of 70. AST and ALT are elevated at 56 and 75. Alk phos and bilirubin are normal . Lipase 118 . Urinalysis negative. He was admitted for the management of acute pancreatitis likely secondary to alcohol use or previous traumatic pancreatic injury with partial resection from fall.He was initially kept n.p.o. later started on clear liquid diet which he tolerated well on pain control and IV hydration.Initially elevated transaminases were normal, hepatitis panel was negative.Pancreatic pseudocyst was stable he was advised to follow with a pressing machine operator as an outpatient. Patient responded to the medical management well and he was discharged in stable condition to home. Physical Exam HENMT: COMMON NORMALS: normocephalic and atraumatic HEAD & SCALP: normocephalic and atraumatic Chest: CHEST: Yes Symmetrical chest wall rise Resp: COMMON NORMALS: clear to auscultation bilaterally EFFORT & INSPECTION: Yes symmetric chest movement AUSCULTATION: clear to auscultation bilaterally Cardio: COMMON NORMALS: regular rate, regular rhythm, S1 normal heart sound present, S2 normal heart sound present, No gallops present (Cardio), No murmurs present (Cardio), No rub (Cardio) and Peripheral pulses 2+ throughout RATE: regular rate RHYTHM: regular rhythm HEART SOUNDS: S1 normal heart sound present and S2 normal heart sound present PERIPHERAL PULSES: Peripheral pulses 2+ throughout GI: COMMON NORMALS: Normal to inspection, nondistended, normoactive bowel sounds present AUSCULTATION: Yes normoactive bowel sounds RECTAL EXAM: Yes deferred Discharge Data Data Completed and Pending: Completed Studies During Hospitalization Category Date Time Status CT abdomen pelvis w con* [id number] Stat Cat Scan 12/27/20 07:40 Completed XR chest 1V sandra ble [id number] Routine Exams 12/27/20 13:36 Completed Pending at discharge Category Date Time Status Blood Culture Sta t Lab 12/27/20 08:25 Results Labs from last 24 hours 12/30/20 12/30/20 12/30/20 09:16 05:37 05:37 WBC 10.9 H RBC 4.66 Hgb 16.2 Hct 48.9 MCV 104.9 H D MCH 34.8 H MCHC 33.1 RDW 13.0 Plt Count 309 MPV 10.5 H Neut % (Auto) 50.4 Lymph % (Auto) 33.1 [place] % (Auto) 10.6 Eos % (Auto) 4.7 Baso % (Auto) 0.7 Neut # (Auto) 5.50 Lymph # (Auto) 3.6 [place] # (Auto) 1.2 H Eos # (Auto) 0.5 Baso # (Auto) 0.1 Nucleated RBC % (a uto) 0 Nucleated RBCs # 0.0 Sodium 135 L Cancelled Potassium 4.0 Cancelled Chloride 99 Cancelled Carbon Dioxide 24 Cancelled Anion Gap 16.0 Cancelled BUN 6 Cancelled Creatinine 0.7 Cancelled GFR Calculation 129.1 Cancelled Glucose 105 Cancelled Calculated Osmolal ity 278 L Cancelled Calcium 8.8 Cancelled Total Bilirubin 0.8 Cancelled AST 22 Cancelled ALT 27 Cancelled Alkaline Phosphata se 115 Cancelled Total Protein 6.8 Cancelled Albumin 3.9 Cancelled Globulin 2.9 Cancelled Vitals: Last Vital Signs Temp 99.3 F 12/30/20 07:25 Pulse 80 12/30/20 08:49 Resp 18 12/30/20 09:47 BP 152/72 12/30/20 07:25 Pulse Ox 95 12/30/20 08:49 Discharge Plan Discharge Patient Disposition: Home Condition: Stable Prescriptions: Continued No Known Home Medications RF: 0 Discharge Orders: Discharge Order (Routine); Ordered 12/30/20 Ordered By: Kvng Ryan Referrals: Mahamed Sales MD [Primary Care Provider] - 2 weeks (PLEASE FOLLOW UP WITH DR. SALES IN 2 WEEKS. ) Discharge Diet: Regular Discharge Activity: Resume usual activity Patient Instructions: Alcohol Abuse, Pancreatitis (DC), Dehydration (DC), Opioid Safety Discharge Attestations Time Spent in Discharge Care*: less than 30 min Specific Discharge Activities: educating patient, educating and/or supporting family/caregiver, discussing with case management director/social workers/dc planners, documenting/other paperwork and evaluating patient/reviewing data Status at Discharge: Cognitive status at discharge: cognitively intact, Behavioral status at discharge: cooperative, Functional status at discharge: independent ambulation Overall status at discharge: patient is back to baseline Quality Metrics Clinical Quality Measures During this hospital stay, did patient experience: None Coding Level of Care Code Acute Chg FW DC note Exam Detailed Diagnoses Pancreatitis, alcoholic, acute K85.20 Alcohol abuse F10.10 Pseudocyst of pancreas K86.3 Elevated transaminase level R74.0
--- NOTE | 2020-12-30 11:17 | PC.NURSE ---
PT OK TO GO AHEAD AND DISCHARGE PER DR. STEPHENSON. THIS NURSE ASSISTED IN THE DISCHARGE PROCESS. THIS NURSE REVIEWED PTS DISCHARGE PAPERWORK WITH PT. ALL QUESTIONS ANSWERED. PTS IV WAS REMOVED. PT TOLERATED THIS WELL. PT REFUSED WHEELCHAIR. SO THIS NURSE AMBULATED WITH PT OUT OF THIS HOSPITAL. PT SAFELY DISCHARGED AT 1107.
== END 2020-12-30 11:24 | disposition home or self-care (01) | DRG 439 ==
LOC: ER 09:42 → MEDSURG 09:54
PROVIDERS: Admitting Provider Internal Medicine; Emergency Provider Family Medicine; PCP Family Medicine; Visit Provider Internal Medicine
DX: K85.20 Alcohol induced acute pancreatitis without necrosis or infection (principal); K86.3 Pseudocyst of pancreas; F10.10 Alcohol abuse, uncomplicated; Z91.5 Personal history of self-harm; F43.10 Post-traumatic stress disorder, unspecified; S12.100S Unspecified displaced fracture of second cervical vertebra, sequela; S12.600S Unspecified displaced fracture of seventh cervical vertebra, sequela; S32.049S Unspecified fracture of fourth lumbar vertebra, sequela; X58.XXXS Exposure to other specified factors, sequela; F17.210 Nicotine dependence, cigarettes, uncomplicated; F12.90 Cannabis use, unspecified, uncomplicated; K21.9 Gastro-esophageal reflux disease without esophagitis; Z90.411 Acquired partial absence of pancreas
CPT/HCPCS: 36415; 36600; 71045; 74177; 80051; 80053; 80074; 81001; 82330; 82746; 82805; 83690; 83735; 84478; 85025; 87040; 96361; 96372; 96374; 96376; 99285; G0378; J1170; J1650; J2060; J2270; J2405; J3490; J7030; Q9967

== ENCOUNTER 2022-04-21 09:55 | Inpatient (IN) | payer SELFPAY ==
[2022-04-21] VITALS (15 sets, daily range): BP systolic 118–177; BP diastolic 85–105; PULSE 60–87; RESP 16–20; TEMP 36.4–36.6; O2SAT 96–99; BMI 25.1; BMI 25.9
--- NOTE | 2022-04-21 10:32 | ECG_ITS ---
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 Measurements Intervals [place] Rate: 80 P: 56 [place]: 153 QRS: 65 QRSD: 95 T: 49 QT: 381 QTc: 440 Interpretive Statements SINUS RHYTHM Compared to ECG 05/17/2020 14:43:18 No significant changes Electronically Signed On 04-21-2022 18:34:01 CDT by Jamal Godwin M.D. [id number]
[2022-04-21] MEDS: morphine 4 mg/mL SDV 1 mL IVP (11:07)
[2022-04-21] MEDS: sodium chloride 0.9% 1,000 ML 999 ML IV (11:07)
[2022-04-21 11:22] LABS: Basophils # 0.1 10^3/uL (0.0-0.1); Eosinophils # 0.1 10^3/uL (0.0-0.8); Eosinophils % 1.7 %; Hematocrit 41.4 % (42.0-52.0); Hemoglobin 14.3 g/dL (11.7-16.6); Lymphocytes # 4.2 10^3/uL (0.8-4.8); Lymphocytes % 59.4 %; Mean Corpuscular HGB Conc 34.5 g/dL (30.0-36.0); Mean Corpuscular Hemoglobin 34.3 pg (28.0-34.0); Mean Corpuscular Volume 99.3 fl (80-94); Mean Platelet Volume 9.3 fL (7.4-10.4); Monocytes # 0.7 10^3/uL (0.2-0.9); Monocytes % 10.4 %; Neutrophils # 1.92 10^3/uL (1.8-7.7); Neutrophils % 27.1 %; Nucleated Red Blood Cells % 0 %; Platelet Count 330 10^3/cmm (130-400); Red Blood Count 4.17 10^6/uL (4.1-5.3); Red Cell Distribution Width 13.4 % (12.1-15.1); White Blood Count 7.1 10^3/uL (4.0-10.0)
[2022-04-21 11:43] LABS: Alanine Aminotransferase 38 U/L (0-41); Alkaline Phosphatase 95 U/L (40-130); Anion Gap 15.4 (5-19); Aspartate Amino Transferase 27 U/L (0-40); Blood Urea Nitrogen 6 mg/dL (6-20); Calcium 8.6 mg/dL (8.5-10.5); Carbon Dioxide 27 mmol/L (22-29); Chloride 102 mmol/L (98-107); Globulin 2.5 g/dL (1.3-4.6); Glomerular Filtration Rate 128.3 mL/min (90-130); Glucose 97 mg/dL (65-115); Lipase 98 U/L (13-60); Osmolality Calculated 290 mOsm/kg (285-295); Potassium 3.4 mmol/L (3.5-5.1); Sodium 141 mmol/L (136-145); Total Bilirubin 0.3 mg/dL (0.15-1.2); Total Protein 6.5 g/dL (6.6-8.7)
--- NOTE | 2022-04-21 11:46 | CT_ITS ---
WS: [id number] CT ABDOMEN PELVIS TECHNIQUE: Contrast-enhanced CT of the abdomen and pelvis with coronal and sagittal reformatted image s. CLINICAL INFORMATION: pain COMPARISON: CT December 27, 2020 DLP: 521.[address] scans at [facility] use at least one of these dose optimization techniques: automated e xposure control; mA and/or kV adjustment per patient size (includes targeted exams where dose is matc hed to clinical indication); or iterative reconstruction. FINDINGS: Hepatomegaly. Diffuse fatty infiltration liver. Again seen is the cystic lesion involving the mid guy creas measuring 4.2 x 4.3 cm slightly increased in size compared to previous. Normal portal vein and splenic vein. Normal GE junction. Air-fluid level in the stomach. Small amount of inflammatory strand ing and edema involving the head of the pancreas suspicious for acute pancreatitis. Recommend correla tion with pancreatic enzymes. Slight atelectasis in the lung bases. Adrenal glands are normal. No hydronephrosis in either kidney. Colon is decompressed. No free fluid in the pelvis. No abdominal or pelvic lymphadenopathy. Disc spac e narrowing worse L4-L5 and L5-S1. Prior splenectomy. CT/CT abdomen pelvis w con* [id number] IMPRESSION: 1. Mild inflammatory stranding and edema involving the pancreatic head suspici ous for pancreatitis. Recommend correlation with pancreatic enzyme studies. No drainable fluid collections. 2. Stable pancreatic lesion in the mid pancreas likely pancreatic pseudocyst v ersus cystic pancreatic neoplasm. This is relatively stable compared to previou s and measures a few millimeters larger today. 3. Diffuse fatty infiltration liver. 4. No other significant changes compared to previous.
[2022-04-21 11:47] LABS: Troponin(5th) Baseline 7 ng/L (0-15)
[2022-04-21] MEDS: iohexol 350 mg/mL 100 mL Btl IV (12:30)
[2022-04-21 13:24] LABS: Add Urine Microscopic? NO; Charge for UA Resulting for Rev
[2022-04-21 13:33] LABS: Bilirubin Urine Neg (Negative); Blood Urine Neg (Negative); Glucose Urine UA Norm (Normal); Ketones Urine Negative (Negative); Leukocyte Esterase Urine Negative (Negative); Nitrate Urine Negative (Negative); Protein Urine Neg (Negative); Sulfosalicylic Acid Urine Negative (Negative); Urine Appearance Clear (CLEAR); Urine Color Yellow (Yellow); Urobilinogen Urine Norm (Negative); pH Urine 8 (5-7)
--- NOTE | 2022-04-21 15:01 | ED_ITS ---
HPI - Chest Pain General: Chief Complaint: Chest Pain Stated Complaint: Chest pain SOB Time Seen by Provider: 04/21/22 10:19 History of Present Illness: 36-year-old male patient presents to the emergency department complaining of epigastric pain that radiates around to his back. Patient states he is concerned for pancreatitis patient states he has had 7 episodes of pancreatitis in the past. Patient did not complains of nausea vomiting. Patient denies any fever. Patient denies any recent drinking binges. Patient denies any other complaints at this time Associated symptoms: Reports abdominal pain, nausea and vomiting; Deny diaphoresis, dyspnea, fever(s), palpitations or syncope Review of Systems Const: Denies: fever(s), chills, body aches, change in appetite, change in weight, fatigue, malaise or diaphoresis Eyes: Denies: change in vision, blurry vision, blind spots, photophobia, eye discomfort, eye discharge, eye redness, floaters or seeing flashes ENMT: Denies: throat pain, uvular edema, enlarged tonsils, odynophagia, hoarseness, mouth pain, swelling of lips/tongue, oral sores, bleeding gums, dental pain, dry mouth, ear or mastoid pain, ear discharge, change in hearing, tinnitus, disequilibrium, nasal discharge, nasal congestion, post nasal drip or sinus pain Card: Denies: chest pain, palpitations, irregular heart rhythm, edema, swelling of feet/ankles, lightheadedness, syncope, pre-syncope, dyspnea on exertion, orthopnea, leg pain with exertion or acrocyanosis Resp: Denies: dyspnea, productive cough, non-productive cough, wheezing, stridor, pain on inspiration, change in phlegm color, hemoptysis or chest congestion GI: Reports: abdominal pain, nausea and vomiting; Denies: hematemesis, dysphagia, diarrhea, constipation, GI cramping, change in bowel habits or rectal pain : Denies: flank pain, dysuria, urinary frequency, urinary urgency, urinary hesitancy or hematuria Musc: Denies: neck pain, back pain, extremity pain, extremity swelling, joint pain, joint swelling, joint redness, joint warmth or deformity Skin/Breast: Denies: rash, pruritus, erythema, sores, new lesions, changes in skin color or dry skin Neuro: Denies: headache(s), numbness in extremities, weakness in extremities, sensory changes, lack of coordination, difficulty walking, frequent falls, di zziness, vertigo, confusion, behavioral changes, Slurred speech present, difficulty communicating thoughts or seizure-like activity Psych: Denies: anxiety, depression, suicidal ideation or homicidal ideation Endo: Denies: polyuria, polydipsia, tired all the time, cold intolerance, excessive sweating, flushing, hot flashes or heat intolerance Javier/Lymph: Denies: easy bruising, easy bleeding, petechiae, purpura, enlarged lymph nodes or tender lymph nodes All/Imm: Denies: urticaria, throat swelling, tongue swelling, facial swelling, acute wheezing or itchy eyes PFSH ED PFSH: Medical History Alcohol abuse C2 cervical fracture C7 cervical fracture Elevated transaminase level History of suicide attempt L4 vertebral fracture Pancreatitis, alcoholic, acute Polysubstance abuse Pseudocyst of pancreas PTSD (post-traumatic stress disorder) Surgical History History of appendectomy History of splenectomy Family History Other Diabetes Social History Smoking and tobacco status: current every day smoker Alcohol intake: current Alcohol intake frequency: few times a week Physical Exam Const: COMMON NORMALS: no acute distress, patient oriented x3, healthy appearing, alert and well nourished GENERAL APPEARANCE: cooperative, comfortable, well kempt and well developed; not ill appearing ORIENTATION/CONSCIOUSNESS: Yes awake, Yes oriented to person, Yes oriented to place and Yes oriented to time HENMT: COMMON NORMALS: normocephalic, atraumatic, hearing grossly normal bilaterally, external ears normal, EAC's normal, TM's normal bilaterally, Normal external nose present, Normal nasal mucous membranes and turbinates present and moist oral mucous membranes HEAD & SCALP: normal to inspection, normocephalic and atraumatic FACE & SINUS: normal facial exam, sinuses nontender and face symmetric NOSE: Normal external nose present, Normal nares present, Normal nasal mucous membranes and turbinates present, No nasal discharge present and Abnormal external nose present EXTERNAL EAR: Yes external ears normal and Yes mastoids normal EXTERNAL AUDITORY CANAL: EAC's normal TYMPANIC MEMBRANE: TM's normal bilaterally MOUTH: Normal oral and palatal mucosa present, lip normal, tongue normal and Normal salivary glands and ducts present THROAT: no uvular edema Eye: COMMON NORMALS: Equal, round and reactive pupils present, EOMs intact bilaterally, conjunctivae normal and no scleral icterus GENERAL EYE: appearance normal, both eyes and all related structures EYELID: eyelids normal CONJUNCTIVA: Yes conjunctivae normal SCLERA: sclerae normal CORNEA: Yes corneas normal PUPIL: Yes Equal, round and reactive pupils present Neck/C-Spine: COMMON NORMALS: full ROM, no lymphadenopathy, supple, no meningeal signs, no JVD and Thyroid normal GENERAL: Yes normal visual inspection and Yes trachea midline THYROID: Thyroid normal CERVICAL SPINE: Yes cervical ROM normal Lymph: LYMPHATIC: no lymphadenopathy noted and no lymphedema noted Chest: COMMONS NORMALS: normal inspection of the chest and normal palpation of entire chest wall Resp: COMMON NORMALS: normal respiratory effort, No retractions, No use of accessory muscles and clear to auscultation bilaterally EFFORT & INSPECTION: Yes able to speak in complete sentences and Yes symmetric chest movement AUSCULTATION: clear to auscultation bilaterally Cardio: COMMON NORMALS: no JVD, regular rate and regular rhythm RATE: regular rate RHYTHM: regular rhythm GI: COMMON NORMALS: Normal to inspection, nondistended, normoactive bowel sounds present, Soft to palpation, No hepatosplenomegaly present, no masses and no bruits INSPECTION: Yes normal to inspection AUSCULTATION: Yes normoactive bowel sounds PALPATION: Yes Soft to palpation and Yes No hepatosplenomegaly present PERCUSSION: normal to percussion RECTAL EXAM: Yes deferred : COMMON NORMALS: Yes no CVA tenderness BLADDER/KIDNEY EXAM: Yes no CVA tenderness Back/Pelvis: COMMON NORMALS: no CVA tenderness, thoracic and lumbar spine normal to inspection, no thoracic nor lumbar tenderness, thoraco-lumbar ROM normal and straight leg raise negative bilaterally THORACIC SPINE/UPPER BACK: Yes normal to inspection LUMBAR SPINE/LOWER BACK: Yes normal to inspection Extremity: COMMON NORMALS: normal to inspection, full ROM and capillary refill normal GENERAL: Yes normal exam except as noted Neuro: COMMON NORMALS: patient oriented x3, CN's II-XII intact bilaterally, moves all extremities, no focal motor deficits, no sensory deficits noted, deep tendon reflexes 2+ bilaterally and gait normal SENSORIUM/ORIENTATION: Yes alert, Yes oriented to person, Yes oriented to place and Yes oriented to time MENINGEAL SIGNS: Yes no meningeal signs CRANIAL NERVES: Yes CN normal except as noted SPEECH: speech normal GAIT: Yes Normal gait present SENSORY EXAM: Yes extremities MOTOR EXAM: 5/5 motor strength present throughout Psych: COMMON NORMALS: mental status grossly normal, Normal thought process present, cooperative, normal affect, speech normal, activity/motor behavior normal, denies hallucinations, denies homicidal ideation and denies suicidal ideation APPEARANCE: Yes grossly normal and Yes well kempt ATTITUDE: Yes calm ACTIVITY/MOTOR BEHAVIOR: Yes appropriate eye contact SPEECH: Yes normal speech THOUGHT PROCESS: Normal thought process present THOUGHT CONTENT: Yes Normal thought content present ATTENTION/CONCENTRATION: Yes attention grossly intact MEMORY/COGNITION: Yes memory grossly intact INSIGHT: Good insight present (Psych) JUDGEMENT: Good judgement present (Psych) Skin: COMMON NORMALS: no rashes or lesions noted, no wounds, turgor normal, no jaundice, no petechiae and no mottling GENERAL SKIN EXAM: no rashes or lesions noted and turgor normal Course Vital Signs: Vital signs: Vital Signs Temperature 97.9 F 04/21/22 10:16 Pulse Rate 87 04/21/22 11:11 Respiratory Rate 16 04/21/22 11:07 Blood Pressure 118/100 04/21/22 11:11 Pulse Oximetry 99 04/21/22 11:11 Oxygen Delivery Me thod 04/21/22 11:11 MDM - Chest Pain Medical Decision Making Patient is well-appearing nontoxic and in no acute distress.36-year-old male patient presents to the emergency department complaining of epigastric pain that radiates around to his back. Patient states he is concerned for pancreatitis patient states he has had 7 episodes of pancreatitis in the past. Patient did not complains of nausea vomiting. Patient denies any fever. Patient denies any recent drinking binges. Patient denies any other complaints at this time patient's delta [place] was within normal limits. Patient's EKG does not show any ST elevation or depression noted this making cardiac ischemia unlikely. Patient's lipase was noted to be 98. Patient CT findings does show edema of the pancreatic head suspicious for pancreatic Martinez. Given patient's past medical history of pancreatitis and need for admission for pain control and IV fluids I will plan on admitting patient at this time. Lab Data : 04/21/22 11:00 04/21/22 11:00 Radiology Impressions Abdomen/Pelvis CT 04/21/22 11:46 IMPRESSION: 1. Mild inflammatory stranding and edema involving the pancreatic head suspicious for pancreatitis. Recommend correlation with pancreatic enzyme studies. No drainable fluid collections. 2. Stable pancreatic lesion in the mid pancreas likely pancreatic pseudocyst versus cystic pancreatic neoplasm. This is relatively stable compared to previous and measures a few millimeters larger today. 3. Diffuse fatty infiltration liver. 4. No other significant changes compared to previous. Laboratory Results WBC 7.1 10^3/uL (4.0-10.0) 04/21/22 11:00 RBC 4.17 10^6/uL (4.1-5.3) 04/21/22 11:00 Hgb 14.3 g/dL (11.7-16.6) 04/21/22 11:00 Hct 41.4 % (42.0-52.0) L 04/21/22 11:00 MCV 99.3 fl (80-94) H 04/21/22 11:00 MCH 34.3 pg (28.0-34.0) H 04/21/22 11:00 MCHC 34.5 g/dL (30.0-36.0) 04/21/22 11:00 RDW 13.4 % (12.1-15.1) 04/21/22 11:00 Plt Count 330 10^3/cmm (130-400) 04/21/22 11:00 MPV 9.3 fL (7.4-10.4) 04/21/22 11:00 Neut % (Auto) 27.1 % 04/21/22 11:00 Lymph % (Auto) 59.4 % 04/21/22 11:00 [place] % (Auto) 10.4 % 04/21/22 11:00 Eos % (Auto) 1.7 % 04/21/22 11:00 Baso % (Auto) 1.0 % 04/21/22 11:00 Neut # (Auto) 1.92 10^3/uL (1.8-7.7) 04/21/22 11:00 Lymph # (Auto) 4.2 10^3/uL (0.8-4.8) 04/21/22 11:00 [place] # (Auto) 0.7 10^3/uL (0.2-0.9) 04/21/22 11:00 Eos # (Auto) 0.1 10^3/uL (0.0-0.8) 04/21/22 11:00 Baso # (Auto) 0.1 10^3/uL (0.0-0.1) 04/21/22 11:00 Nucleated RBC % (auto) 0 % 04/21/22 11:00 Nucleated RBCs # 0.0 /100WBC 04/21/22 11:00 Sodium 141 mmol/L (136-145) 04/21/22 11:00 Potassium 3.4 mmol/L (3.5-5.1) L 04/21/22 11:00 Chloride 102 mmol/L (98-107) 04/21/22 11:00 Carbon Dioxide 27 mmol/L (22-29) 04/21/22 11:00 Anion Gap 15.4 (5-19) 04/21/22 11:00 BUN 6 mg/dL (6-20) 04/21/22 11:00 Creatinine 0.7 mg/dL (0.7-1.2) 04/21/22 11:00 GFR Calculation 128.3 mL/min (90-130) 04/21/22 11:00 Glucose 97 mg/dL (65-115) 04/21/22 11:00 Calculated Osmolality 290 mOsm/kg (285-295) 04/21/22 11:00 Calcium 8.6 mg/dL (8.5-10.5) 04/21/22 11:00 Total Bilirubin 0.3 mg/dL (0.15-1.2) 04/21/22 11:00 AST 27 U/L (0-40) 04/21/22 11:00 ALT 38 U/L (0-41) 04/21/22 11:00 Alkaline Phosphatase 95 U/L (40-130) 04/21/22 11:00 Troponin T Baseline 7 ng/L (0-15) 04/21/22 11:00 Troponin T 120 Minute 6.00 ng/L (0-15) 04/21/22 12:49 Delta Troponin T -1.0 ABS# (0-10) L 04/21/22 12:49 Total Protein 6.5 g/dL (6.6-8.7) L 04/21/22 11:00 Albumin 4.0 g/dL (3.5-5.2) 04/21/22 11:00 Globulin 2.5 g/dL (1.3-4.6) 04/21/22 11:00 Lipase 98 U/L (13-60) H 04/21/22 11:00 Urine Color Yellow (Yellow) 04/21/22 13:19 Urine Appearance Clear (CLEAR) 04/21/22 13:19 Urine pH 8 (5-7) H 04/21/22 13:19 Ur Specific [place] 1.010 (1.005-1.030) 04/21/22 13:19 Urine Protein Neg (Negative) 04/21/22 13:19 Urine Glucose (UA) Norm (Normal) 04/21/22 13:19 Urine Ketones Negative (Negative) 04/21/22 13:19 Urine Blood Neg (Negative) 04/21/22 13:19 Urine Nitrate Negative (Negative) 04/21/22 13:19 Urine Bilirubin Neg (Negative) 04/21/22 13:19 Prot Sulfosalicylic Acd Negative (Negative) 04/21/22 13:19 Urine Urobilinogen Norm mg/dL (Negative) 04/21/22 13:19 Ur Leukocyte Esterase Negative (Negative) 04/21/22 13:19 Discharge Plan Discharge Condition: Stable Prescriptions: No Action No Known Home Medications Rx Instructions: pt states he takes no rx or otc medications Referrals: Mahamed Sales MD [Primary Care Provider] - Coding Level of Care Code ED Building Energy Consultant for Marko Avery
[2022-04-21] MEDS: HYDROmorphone 1 mg/mL INJ 1 mL IVP (15:12)
--- NOTE | 2022-04-21 17:36 | PC.NURSE ---
physician notified of patient's arrival to the floor. no new orders received.
[2022-04-21] MEDS: morphine 4 mg/mL SDV 1 mL 2 MG IVP (18:19)
--- NOTE | 2022-04-21 18:23 | P.HP_ITS ---
Providers/Chief Complaint Admitting Physician: Rosanne Damon MD Primary Care Provider: Mahamed Sales MD Chief Complaint: Chest pain SOB History of Present Illness Elena Hernandez is a 36 year old male with past medical history of alcohol abuse, pancreatitis presented with chief complaint of abdominal pain, as well as nausea and vomiting. CT of his abdomen and pelvis showed mild inflammatory stranding and edema involving the pancreatic head suspicious for pancreatitis. No drainable fluid collections. There was a stable randee pancreatic lesion in the mid pancreas likely pancreatic pseudocyst versus cystic neoplasm stable compared to prior study from December 2020. Diffuse fatty infiltration was noted in the liver. LFTs today are within normal limit. Only mildly elevated lipase at 98 today. Patient denies any binge alcohol drinking recently. He saturating 98% on room air. Afebrile. Normal white count. Review of Systems General: Reports: 10 or more systems reviewed and unremarkable except in HPI and below Const: Denies: fever(s), chills or body aches Eyes: Denies: change in vision, blurry vision or photophobia ENMT: Reports: hoarseness; Denies: throat pain, enlarged tonsils, odynophagia or nasal congestion Card: Denies: chest pain, palpitations, irregular heart rhythm, edema, swelling of feet/ankles, lightheadedness, pre-syncope, dyspnea on exertion or orthopnea Resp: Denies: dyspnea, productive cough, non-productive cough, wheezing, stridor, pain on inspiration, change in phlegm color, hemoptysis or chest congestion GI: Denies: abdominal pain, nausea, vomiting, hematemesis, coffee ground emesis, dysphagia, heartburn, diarrhea, constipation, GI cramping, change in stool character, hematochezia or melena : Denies: flank pain, dysuria, urinary frequency, urinary urgency, urinary hesitancy or hematuria Musc: Denies: neck pain, back pain, extremity pain, joint swelling, joint warmth or deformity Neuro: Denies: headache(s), numbness in extremities, weakness in extremities, sensory changes, difficulty walking, frequent falls, dizziness, vertigo, behavioral changes, Slurred speech present or seizure-like activity Psych: Denies: anxiety, depression, suicidal ideation or homicidal ideation Endo: Denies: polyuria, polydipsia, tired all the time, cold intolerance or hot flashes Javier/Lymph: Denies: easy bruising or easy bleeding Medications/Allergies Home Medications Medication Instructions Recorded Confirmed Last Taken Type No Known Home Medications 12/27/20 04/21/22 Unknown History Allergies Allergy/AdvReac Type Severity Reaction Status Date / Time No Known Allergies Allergy Verified 12/27/20 08:36 PFSH Acute PFSH: Medical History Alcohol abuse C2 cervical fracture C7 cervical fracture Elevated transaminase level History of suicide attempt L4 vertebral fracture Pancreatitis, alcoholic, acute Polysubstance abuse Pseudocyst of pancreas PTSD (post-traumatic stress disorder) Surgical History History of appendectomy History of splenectomy Family History Other Diabetes Social History Smoking and tobacco status: current every day smoker Alcohol intake: current Alcohol intake frequency: few times a week Vitals/I&O/Wt Last Vital Signs Temp 97.6 F 04/21/22 17:34 Pulse 60 04/21/22 17:34 Resp 16 04/21/22 18:19 BP 164/105 04/21/22 17:34 Pulse Ox 98 04/21/22 18:19 O2 Del Method 04/21/22 17:34 04/21/22 04/21/22 04/21/22 06:59 14:59 22:59 Intake Total 1000 / 1000 Balance 1000 / 1000 Weight last 48 hrs Weight 84.323 kg Weight 81.647 kg Physical Exam Narrative: General: No acute distress, AO x3 HEENT: PERRLA, pupils bilaterally equal and reactive, pallors not present Chest: Normal vesicular breath sounds, no added sounds, equal good air entry bilaterally CVS: S1-S2 regular, no murmurs, no tachycardia, no gallops, no rubs Abdomen: Soft, nontender, no organomegaly, bowel sounds present Neuro: No focal deficits, no facial deformity, AO x3, power 5/5 in all limbs Data : 04/21/22 11:00 04/21/22 11:00 A&P Assessment and plan (1) Acute pancreatitis: Patient currently with acute pancreatitis in a background of recurrent chronic pancreatitis. N.p.o. except for sips and chips. IV fluid D5 normal saline at [address] with mild pancreatitis, no signs of necrotizing pancreatitis over peripancreatic collections. Overall stable likely pseudocyst as noted on CT abdomen. Pain control with morphine alternating with Toradol. Monitor for improvement with IV fluids, supportive management. Chest x-ray to evaluate for any reactive pleural effusions. Status: Acute Attestations Medical Necessity Statement*: Admit as inpatient for management of acute on chronic pancreatitis., IV fluid, pain management. Coding Level of Care Code Acute Medical Research Tech for [facility] Diagnoses Acute pancreatitis K85.90
[2022-04-21] MEDS: enoxaparin 40 mg/0.4 mL Syringe SUBCUT (18:29)
[2022-04-21] MEDS: dextrose 5%-sod chloride 0.9% 1,000 ML 125 ML IV (20:25)
[2022-04-21] MEDS: ketorolac 30 mg/mL INJ 15 MG IVP (20:26)
[2022-04-21] MEDS: HYDROmorphone 1 mg/mL INJ 1 mL 0.5 MG IVP (22:57)
[2022-04-22] VITALS (11 sets, daily range): BP systolic 124–157; BP diastolic 73–88; PULSE 60–86; RESP 16–18; TEMP 36.4–36.9; O2SAT 94–96
--- NOTE | 2022-04-22 04:00 | XRR_ITS ---
PROCEDURE INFORMATION: Exam: XR Chest Exam date and time: 04/22/2022 5:11 AM Age: 36 years old Clinical indication: Chest wall pain; Additional info: Chest pain TECHNIQUE: Imaging protocol: Radiologic exam of the chest. Views: 1 view. COMPARISON: CR XR chest 1V portable [id number] 12/27/2020 1:48 PM FINDINGS: Lungs: There are normal lung volumes. Mild right basilar atelectasis/interstitial opacities are seen. Left mid lung zone ovoid nodular opacity is seen, measuring 1.5 x [address] may be performed for complete assessment. Pleural spaces: Blunting of the right costophrenic angle is seen, suggestive of a tiny right pleural effusion. No pneumothorax. Heart/Mediastinum: The heart size is normal. The mediastinal contour is normal. The trachea is in the midline. Bones/joints: No acute abnormalities. Postsurgical changes are seen status post compression plate and screw fixation of the right clavicle. XR/XR chest 1V portable [id number] IMPRESSION: 1. Mild right basilar atelectasis/interstitial opacities. Associated suspected tiny right pleural effusion. 2. Left mid lung zone ovoid nodular opacity, measuring 1.5 x [address] may be performed for complete assessment.
[2022-04-22 05:09] LABS: Basophils % 0.4 %; Eosinophils # 0.2 10^3/uL (0.0-0.8); Hematocrit 38.7 % (42.0-52.0); Hemoglobin 13.2 g/dL (11.7-16.6); Lymphocytes # 3.7 10^3/uL (0.8-4.8); Lymphocytes % 34.5 %; Mean Corpuscular HGB Conc 34.1 g/dL (30.0-36.0); Mean Corpuscular Hemoglobin 34.9 pg (28.0-34.0); Mean Corpuscular Volume 102.4 fl (80-94); Mean Platelet Volume 9.4 fL (7.4-10.4); Monocytes # 1.1 10^3/uL (0.2-0.9); Monocytes % 10.2 %; Neutrophils # 5.58 10^3/uL (1.8-7.7); Neutrophils % 52.3 %; Nucleated Red Blood Cells % 0 %; Platelet Count 280 10^3/cmm (130-400); Red Blood Count 3.78 10^6/uL (4.1-5.3); Red Cell Distribution Width 13.2 % (12.1-15.1); White Blood Count 10.6 10^3/uL (4.0-10.0)
[2022-04-22 05:34] LABS: Alanine Aminotransferase 27 U/L (0-41); Albumin Level 3.3 g/dL (3.5-5.2); Alkaline Phosphatase 95 U/L (40-130); Aspartate Amino Transferase 19 U/L (0-40); Blood Urea Nitrogen 6 mg/dL (6-20); Calcium 7.7 mg/dL (8.5-10.5); Carbon Dioxide 24 mmol/L (22-29); Chloride 99 mmol/L (98-107); Globulin 2.1 g/dL (1.3-4.6); Glomerular Filtration Rate 128.3 mL/min (90-130); Glucose 98 mg/dL (65-115); Osmolality Calculated 274 mOsm/kg (285-295); Sodium 133 mmol/L (136-145); Total Bilirubin 0.4 mg/dL (0.15-1.2); Total Protein 5.4 g/dL (6.6-8.7)
[2022-04-22 05:35] LABS: Anion Gap 13.7 (5-19); Potassium 3.7 mmol/L (3.5-5.1)
[2022-04-22] MEDS: ketorolac 30 mg/mL INJ 15 MG IVP ×3 (05:39→23:27)
[2022-04-22] MEDS: dextrose 5%-sod chloride 0.9% 1,000 ML 125 ML IV ×2 (06:51→16:31)
[2022-04-22] MEDS: HYDROmorphone 1 mg/mL INJ 1 mL 0.5 MG IVP ×4 (06:57→20:43)
[2022-04-22] MEDS: pantoprazole DR 40 mg Tablet PO (08:17)
--- NOTE | 2022-04-22 12:37 | PM.PN ---
Subjective Subjective: Patient reports feeling somewhat better today. Less nauseous. Pain is better controlled. He just had Dilaudid prior to evaluation. Morphine was changed to Dilaudid overnight for better pain management. Though he was n.p.o. it appears he was given broth overnight which he vomited. He states he is hungry and willing to try clears again today. Hemodynamically stable Medications: Reviewed: Yes Vitals/I&O/Wt Last Vital Signs Temp 97.6 F 04/22/22 12:00 Pulse 74 04/22/22 12:00 Resp 16 04/22/22 12:00 BP 126/78 04/22/22 12:00 Pulse Ox 94 04/22/22 12:00 O2 Del Method 04/22/22 12:00 04/21/22 04/22/22 04/22/22 22:59 06:59 14:59 Intake Total 480 / 1480 1000 / 2480 Balance 480 / 1480 1000 / 2480 Weight last 48 hrs Weight 84.323 kg Weight 81.647 kg Physical Exam Narrative: General: No acute distress, AO x3 HEENT: PERRLA, pupils bilaterally equal and reactive, pallors not present Chest: Normal vesicular breath sounds, no added sounds, equal good air entry bilaterally CVS: S1-S2 regular, no murmurs, no tachycardia, no gallops, no rubs Abdomen: Soft, nontender, no organomegaly, bowel sounds present Neuro: No focal deficits, no facial deformity, AO x3, power 5/5 in all limbs Data : 04/22/22 04:29 04/22/22 04:29 A&P Assessment and plan (1) Acute pancreatitis: Patient currently with acute pancreatitis in a background of recurrent chronic pancreatitis. Trial of clear liquid diet today IV fluid D5 normal saline at [address] with mild pancreatitis, no signs of necrotizing pancreatitis over peripancreatic collections. Overall stable likely pseudocyst as noted on CT abdomen. Pain control with morphine alternating with Toradol. Monitor for improvement with IV fluids, supportive management. Chest x-ray with mild right basilar atelectasis/interstitial opacities. Associated tiny right pleural effusion. No current signs or symptoms of pneumonia. However would have low threshold for further evaluation with CT given that patient is post splenectomy. Status: Acute Attestations Medical Necessity Statement*: Ongoing treatment for pancreatitis, needs IV hydration, pain management, slowly advance diet today Coding Level of Care Code Acute Fuel Yard Operator for [facility] Diagnoses Acute pancreatitis K85.90
[2022-04-22] MEDS: enoxaparin 40 mg/0.4 mL Syringe SUBCUT (17:30)
--- NOTE | 2022-04-22 19:35 | PC.NURSE ---
Addendum entered by Gregoria Dacosta RN 04/22/22 19:40: This was on 04/21/22 Original Note: Spoke to Dr. Juarez at [id number] about patient request for broth. Pt is on sips and chips only. Diet was changed by Ann to clear liquid and broth was given.
[2022-04-23] VITALS (7 sets, daily range): BP systolic 131–145; BP diastolic 87–97; PULSE 61–67; RESP 16–18; TEMP 36.4–36.8; O2SAT 94–98
[2022-04-23] MEDS: dextrose 5%-sod chloride 0.9% 1,000 ML 125 ML IV ×2 (01:22→01:25)
[2022-04-23] MEDS: HYDROmorphone 1 mg/mL INJ 1 mL 0.5 MG IVP ×3 (01:23→10:29)
[2022-04-23 04:41] LABS: Basophils % 0.4 %; Eosinophils # 0.4 10^3/uL (0.0-0.8); Hematocrit 38.2 % (42.0-52.0); Hemoglobin 13.3 g/dL (11.7-16.6); Lymphocytes # 3.8 10^3/uL (0.8-4.8); Lymphocytes % 37.5 %; Mean Corpuscular HGB Conc 34.8 g/dL (30.0-36.0); Mean Corpuscular Hemoglobin 34.9 pg (28.0-34.0); Mean Corpuscular Volume 100.3 fl (80-94); Mean Platelet Volume 9.6 fL (7.4-10.4); Monocytes # 0.7 10^3/uL (0.2-0.9); Neutrophils # 5.15 10^3/uL (1.8-7.7); Neutrophils % 50.8 %; Nucleated Red Blood Cells % 0 %; Platelet Count 261 10^3/cmm (130-400); Red Blood Count 3.81 10^6/uL (4.1-5.3); Red Cell Distribution Width 12.9 % (12.1-15.1); White Blood Count 10.1 10^3/uL (4.0-10.0)
[2022-04-23 05:05] LABS: Alanine Aminotransferase 24 U/L (0-41); Albumin Level 3.2 g/dL (3.5-5.2); Alkaline Phosphatase 105 U/L (40-130); Anion Gap 13.3 (5-19); Aspartate Amino Transferase 22 U/L (0-40); Blood Urea Nitrogen 3 mg/dL (6-20); Calcium 7.9 mg/dL (8.5-10.5); Carbon Dioxide 22 mmol/L (22-29); Chloride 107 mmol/L (98-107); Globulin 2.3 g/dL (1.3-4.6); Glomerular Filtration Rate 153.3 mL/min (90-130); Glucose 110 mg/dL (65-115); Osmolality Calculated 283 mOsm/kg (285-295); Potassium 4.3 mmol/L (3.5-5.1); Sodium 138 mmol/L (136-145); Total Bilirubin 0.5 mg/dL (0.15-1.2); Total Protein 5.5 g/dL (6.6-8.7)
[2022-04-23] MEDS: ketorolac 30 mg/mL INJ 15 MG IVP (08:46)
[2022-04-23] MEDS: pantoprazole DR 40 mg Tablet PO (08:46)
--- NOTE | 2022-04-23 11:46 | P.DS_ITS ---
Discharge Providers Date of Admission: 04/21/22 16:45 Date of Discharge: April 23, 2022 Attending Provider at Admission: Rosanne Damon MD Attending Provider at Discharge: Rosanne Damon MD Primary Care Provider: Mahamed Sales MD Diagnoses at Discharge Discharge Diagnosis (1) Acute pancreatitis: Status: Acute Reason for Visit Reason for Visit: Chest pain SOB Hospital Course Hospital Course Elena Hernandez is a 36 year old male with past medical history of alcohol abuse, pancreatitis presented with chief complaint of abdominal pain, as well as nausea and vomiting.? CT of his abdomen and pelvis showed mild inflammatory stranding and edema involving the pancreatic head suspicious for pancreatitis.? No drainable fluid collections.? There was a stable randee pancreatic lesion in the mid pancreas likely pancreatic pseudocyst versus cystic neoplasm stable compared to prior study from December 2020.? Diffuse fatty infiltration was noted in the liver.? LFTs normal. He was admitted for the management of acute on chronic pancreatitis and received treatment with IV hydration and pain management. He slowly improved during the course of admission. At the time of discharge he has slowly graduated onto a mechanical soft diet. Being discharged today with instructions to slowly advance diet as tolerated. His pain is much improved. He is no longer dehydrated. Chest x-ray did show a small pleural effusion, anticipate that this is a reactive effusion from pancreatitis. He has no other complaints of chest pain dyspnea. No fever. No clinical signs of pneumonia. Recommended to follow-up with clinical professor in [place]. Patient states he already has a referral, however is yet to make an appointment. Incidentally noted left lung nodule. Recommend follow-up with primary care provider. Physical Exam Narrative: General: No acute distress, AO x3 HEENT: PERRLA, pupils bilaterally equal and reactive, pallors not present Chest: Normal vesicular breath sounds, no added sounds, equal good air entry bilaterally CVS: S1-S2 regular, no murmurs, no tachycardia, no gallops, no rubs Abdomen: Soft, nontender, no organomegaly, bowel sounds present Neuro: No focal deficits, no facial deformity, AO x3, power 5/5 in all limbs Discharge Data Studies Completed and Pending Completed Studies During Hospitalization Category Date Time Status CT abdomen pelvis w con* [id number] Stat Cat Scan 04/21/22 11:46 Completed CXRP [XR chest 1V portable [id number]] AM LABS Exams 04/22/22 04:00 Completed Radiology Impressions Abdomen/Pelvis CT 04/21/22 11:46 IMPRESSION: 1. Mild inflammatory stranding and edema involving the pancreatic head suspicious for pancreatitis. Recommend correlation with pancreatic enzyme studies. No drainable fluid collections. 2. Stable pancreatic lesion in the mid pancreas likely pancreatic pseudocyst versus cystic pancreatic neoplasm. This is relatively stable compared to previous and measures a few millimeters larger today. 3. Diffuse fatty infiltration liver. 4. No other significant changes compared to previous. Chest X-Ray 04/22/22 04:00 IMPRESSION: 1. Mild right basilar atelectasis/interstitial opacities. Associated suspected tiny right pleural effusion. 2. Left mid lung zone ovoid nodular opacity, measuring 1.5 x [address] may be performed for complete assessment. Laboratory Results WBC 10.1 10^3/uL (4.0-10.0) H 04/23/22 04:11 RBC 3.81 10^6/uL (4.1-5.3) L 04/23/22 04:11 Hgb 13.3 g/dL (11.7-16.6) 04/23/22 04:11 Hct 38.2 % (42.0-52.0) L 04/23/22 04:11 MCV 100.3 fl (80-94) H 04/23/22 04:11 MCH 34.9 pg (28.0-34.0) H 04/23/22 04:11 MCHC 34.8 g/dL (30.0-36.0) 04/23/22 04:11 RDW 12.9 % (12.1-15.1) 04/23/22 04:11 Plt Count 261 10^3/cmm (130-400) 04/23/22 04:11 MPV 9.6 fL (7.4-10.4) 04/23/22 04:11 Neut % (Auto) 50.8 % 04/23/22 04:11 Lymph % (Auto) 37.5 % 04/23/22 04:11 [place] % (Auto) 7.0 % 04/23/22 04:11 Eos % (Auto) 4.0 % 04/23/22 04:11 Baso % (Auto) 0.4 % 04/23/22 04:11 Neut # (Auto) 5.15 10^3/uL (1.8-7.7) 04/23/22 04:11 Lymph # (Auto) 3.8 10^3/uL (0.8-4.8) 04/23/22 04:11 [place] # (Auto) 0.7 10^3/uL (0.2-0.9) 04/23/22 04:11 Eos # (Auto) 0.4 10^3/uL (0.0-0.8) 04/23/22 04:11 Baso # (Auto) 0.0 10^3/uL (0.0-0.1) 04/23/22 04:11 Nucleated RBC % (auto) 0 % 04/23/22 04:11 Nucleated RBCs # 0.0 /100WBC 04/23/22 04:11 Sodium 138 mmol/L (136-145) 04/23/22 04:11 Potassium 4.3 mmol/L (3.5-5.1) 04/23/22 04:11 Chloride 107 mmol/L (98-107) 04/23/22 04:11 Carbon Dioxide 22 mmol/L (22-29) 04/23/22 04:11 Anion Gap 13.3 (5-19) 04/23/22 04:11 BUN 3 mg/dL (6-20) L 04/23/22 04:11 Creatinine 0.6 mg/dL (0.7-1.2) L 04/23/22 04:11 GFR Calculation 153.3 mL/min (90-130) H 04/23/22 04:11 Glucose 110 mg/dL (65-115) 04/23/22 04:11 Calculated Osmolality 283 mOsm/kg (285-295) L 04/23/22 04:11 Calcium 7.9 mg/dL (8.5-10.5) L 04/23/22 04:11 Total Bilirubin 0.5 mg/dL (0.15-1.2) 04/23/22 04:11 AST 22 U/L (0-40) 04/23/22 04:11 ALT 24 U/L (0-41) 04/23/22 04:11 Alkaline Phosphatase 105 U/L (40-130) 04/23/22 04:11 Troponin T Baseline 7 ng/L (0-15) 04/21/22 11:00 Troponin T 120 Minute 6.00 ng/L (0-15) 04/21/22 12:49 Delta Troponin T -1.0 ABS# (0-10) L 04/21/22 12:49 Total Protein 5.5 g/dL (6.6-8.7) L 04/23/22 04:11 Albumin 3.2 g/dL (3.5-5.2) L 04/23/22 04:11 Globulin 2.3 g/dL (1.3-4.6) 04/23/22 04:11 Lipase 98 U/L (13-60) H 04/21/22 11:00 Urine Color Yellow (Yellow) 04/21/22 13:19 Urine Appearance Clear (CLEAR) 04/21/22 13:19 Urine pH 8 (5-7) H 04/21/22 13:19 Ur Specific [place] 1.010 (1.005-1.030) 04/21/22 13:19 Urine Protein Neg (Negative) 04/21/22 13:19 Urine Glucose (UA) Norm (Normal) 04/21/22 13:19 Urine Ketones Negative (Negative) 04/21/22 13:19 Urine Blood Neg (Negative) 04/21/22 13:19 Urine Nitrate Negative (Negative) 04/21/22 13:19 Urine Bilirubin Neg (Negative) 04/21/22 13:19 Prot Sulfosalicylic Acd Negative (Negative) 04/21/22 13:19 Urine Urobilinogen Norm mg/dL (Negative) 04/21/22 13:19 Ur Leukocyte Esterase Negative (Negative) 04/21/22 13:19 Vitals Last Vital Signs Temp 97.5 F L 04/23/22 11:12 Pulse 61 04/23/22 11:12 Resp 16 04/23/22 11:12 BP 145/97 04/23/22 11:12 Pulse Ox 98 04/23/22 11:12 O2 Del Method 04/23/22 11:12 Discharge Plan Discharge Patient Disposition: Home Condition: Stable Prescriptions: New Dilaudid 2 mg tablet 2 mg PO Q8H PRN (Reason: pain) 5 Days Qty: 15 0RF ondansetron 4 mg tablet,disintegrating 4 mg PO Q8H PRN (Reason: nausea and vomiting) 5 Days Qty: 20 0RF No Action No Known Home Medications Rx Instructions: pt states he takes no rx or otc medications Discharge Orders: Discharge Order (Routine); Ordered 04/23/22 Ordered By: Rosanne Damon Referrals: Mahamed Sales MD [Primary Care Provider] - 4-7 days Discharge Diet: Advance as tolerated Discharge Activity: Resume usual activity Patient Instructions: Opioid Safety Discharge Attestations Time Spent in Discharge Care*: less than 30 min Status at Discharge: Cognitive status at discharge: cognitively intact , Behavioral status at discharge: cooperative , Quality Metrics Clinical Quality Measures [ No reported AMI, CVA or VTE this stay] Coding Level of Care Code Acute Chg FW DC note Diagnoses Acute pancreatitis K85.90
== END 2022-04-23 12:00 | disposition home or self-care (01) | DRG 440 ==
LOC: ER 15:07 → MEDSURG 16:59
PROVIDERS: Admitting Provider Student in an Organized Health Care Education/Training Program; Emergency Provider Registered Nurse; PCP Family Medicine; Visit Provider Student in an Organized Health Care Education/Training Program
DX: K85.20 Alcohol induced acute pancreatitis without necrosis or infection (principal); F10.10 Alcohol abuse, uncomplicated; K86.0 Alcohol-induced chronic pancreatitis; K70.0 Alcoholic fatty liver; Z91.51 Personal history of suicidal behavior; F43.10 Post-traumatic stress disorder, unspecified; F17.200 Nicotine dependence, unspecified, uncomplicated
CPT/HCPCS: 36415; 71045; 74177; 80053; 81003; 83690; 84484; 85025; 93005; 94760; 96361; 96372; 96374; 96375; 99285; J1170; J1650; J1885; J2270; J7030; Q9967

== ENCOUNTER 2022-05-21 11:34 | Emergency (ER) | payer SELFPAY ==
[2022-05-21 11:41] VITALS: BP 157/103; PULSE 75; RESP 16; TEMP 36.4; O2SAT 100; BMI 25.1
--- NOTE | 2022-05-21 12:07 | XRR_ITS ---
PROCEDURE INFORMATION: Exam: XR Chest Exam date and time: 05/21/2022 12:33 PM Age: 36 years old Clinical indication: Right-sided and left-sided; Prior surgery; Patient HX: History--chest pain that started this morning and is now moving to the abdomen as well. Pain level is at a 10 and PT states that he has a very high pain tolerance. PT has HX of pancreatitis and has surgery on his pancreas. ; Additional info: Bilat chest pain TECHNIQUE: Imaging protocol: Radiologic exam of the chest. Views: 2 views. COMPARISON: CR (CHEST, ) 04/22/2022 5:11 AM FINDINGS: Lungs: Unremarkable. No consolidation. Pleural spaces: Unremarkable. No pleural effusion. No pneumothorax. Heart/Mediastinum: Stable cardiomediastinal silhouette. Bones/joints: Old healed fracture deformity and ORIF hardware of the right clavicle noted. XR/XR chest 2V* [id number] IMPRESSION: No evidence of active cardiopulmonary disease.
--- NOTE | 2022-05-21 12:10 | ED_ITS ---
HPI - Chest Pain General: Chief Complaint: Chest Pain Stated Complaint: chest pain Time Seen by Provider: 05/21/22 11:57 Source: patient Mode of arrival: ambulatory Limitations: no limitations History of Present Illness: See nursing assessment. Patient with complaints of bilateral chest pain with deep inspiration. He also complains of mild chest wall pain with palpation. States most the pain occurs when he takes a deep breath. He does smoke. Does have a history of alcohol abuse. He has possible history of pancreatitis. He denies any problems with his lungs. States he had a remote trauma in which she fell 30 feet that caused him to have his spleen removed and portion of his pancreas removed. He states he did have C2 fracture. Associated symptoms: Deny abdominal pain, dyspnea, fever(s), nausea, palpitations or vomiting Review of Systems Const: Denies: fever(s) or chills Eyes: Denies: change in vision ENMT: Denies: throat pain Card: Reports: chest pain (Bilateral pleuritic chest pain); Denies: palpitations Resp: Denies: dyspnea or wheezing GI: Denies: abdominal pain, nausea or vomiting : Denies: flank pain Musc: Denies: neck pain or back pain Skin/Breast: Denies: rash or pruritus Neuro: Denies: headache(s) or numbness in extremities Psych: Denies: anxiety Javier/Lymph: Denies: enlarged lymph nodes PFSH ED PFSH: Medical History Alcohol abuse C2 cervical fracture C7 cervical fracture Elevated transaminase level History of suicide attempt L4 vertebral fracture Pancreatitis, alcoholic, acute Polysubstance abuse Pseudocyst of pancreas PTSD (post-traumatic stress disorder) Surgical History History of appendectomy History of splenectomy Family History Other Diabetes Social History Smoking and tobacco status: current every day smoker Alcohol intake: current Alcohol intake frequency: few times a week Physical Exam Const: COMMON NORMALS: no acute distress, patient oriented x3, alert and well nourished GENERAL APPEARANCE: cooperative HENMT: COMMON NORMALS: normocephalic and atraumatic HEAD & SCALP: normocephalic and atraumatic Eye: COMMON NORMALS: EOMs intact bilaterally Neck/C-Spine: COMMON NORMALS: full ROM, no lymphadenopathy, supple and no JVD Lymph: LYMPHATIC: no lymphadenopathy noted Chest: OTHER: Bilateral mild chest wall pain anteriorly. No crepitus. No lesions. Resp: COMMON NORMALS: normal respiratory effort, No retractions, No use of accessory muscles and clear to auscultation bilaterally AUSCULTATION: clear to auscultation bilaterally Cardio: COMMON NORMALS: no JVD, regular rate, regular rhythm and Peripheral pulses 2+ throughout RATE: regular rate RHYTHM: regular rhythm PERIPHERAL PULSES: Peripheral pulses 2+ throughout GI: COMMON NORMALS: Normal to inspection, nondistended, normoactive bowel sounds present, Soft to palpation and non-tender PALPATION: Yes Soft to palpation : COMMON NORMALS: Yes no CVA tenderness BLADDER/KIDNEY EXAM: Yes no CVA tenderness Back/Pelvis: COMMON NORMALS: no CVA tenderness Extremity: COMMON NORMALS: normal to inspection and full ROM Neuro: COMMON NORMALS: patient oriented x3, CN's II-XII intact bilaterally, moves all extremities, no focal motor deficits and no sensory deficits noted SENSORIUM/ORIENTATION: Yes alert Psych: COMMON NORMALS: mental status grossly normal, Normal thought process present, cooperative, normal affect and speech normal SPEECH: Yes normal speech THOUGHT PROCESS: Normal thought process present Skin: COMMON NORMALS: no rashes or lesions noted GENERAL SKIN EXAM: no rashes or lesions noted Course Vital Signs: Vital signs: Vital Signs Temperature 97.6 F 05/21/22 11:41 Pulse Rate 67 05/21/22 12:16 Respiratory Rate 17 05/21/22 12:16 Blood Pressure 158/108 05/21/22 12:16 Pulse Oximetry 98 05/21/22 12:16 Oxygen Delivery Me thod 05/21/22 12:16 MDM - Chest Pain Medical Decision Making Patient likely has chest wall pain. Imaging Data CXR: My impression: PA lateral chest x-ray appears normal. Patient has previous right clavicle fracture repair. No infiltrate or effusion. No pneumothorax. EKG Data EKG 1: I personally reviewed and interpreted this EKG as follows: EKG interpretation date: 05/21/22 EKG interpretation time: 12:01 Interpretation: Normal sinus rhythm with heart rate of 72. Normal axis. Normal SC interval, normal QT interval. Normal QRS. Normal ST segment. Normal P waves, normal T waves. Impression normal EKG. Discharge Plan Discharge Patient Disposition: Home Clinical Impression: Acute pleurisy without pleural effusion, Costalchondritis Condition: Stable Prescriptions: New Naprosyn 500 mg tablet 500 mg PO BID PRN (Reason: pain) Qty: 10 2RF Rx Instructions: prn pain No Action ondansetron 4 mg tablet,disintegrating 4 mg PO Q8H PRN (Reason: Nausea And Vomiting) Discharge Orders: Discharge ED (Routine); Ordered 05/21/22 Ordered By: Dion Ríos Referrals: Mahamed Sales MD [Primary Care Provider] - 1-3 days (as needed.) Discharge Diet: Advance as tolerated Discharge Activity: Increase activity as tolerated Patient Instructions: Pleurisy (ED), Costochondritis (ED) Activity Restrictions/Additional Instructions: Avoid smoking. Take medications as prescribed. Take medication with food. Coding Level of Care Code ED Navigation Teacher for Chg Fwd Exam Comprehensive
[2022-05-21 12:16] VITALS: BP 158/108; PULSE 67; RESP 17; O2SAT 98
[2022-05-21] MEDS: ketorolac 60 mg/2 mL INJ 30 MG IM (13:04)
[2022-05-21 13:14] VITALS: PULSE 74; RESP 15; TEMP 36.7; O2SAT 98
[2022-05-21 13:18] VITALS: BP 151/101
--- NOTE | 2022-05-21 13:19 | PC.NURSE ---
Patient with improved pain at time of discharge and comfortable with diagnosis and discharge
== END 2022-05-21 13:20 | disposition home or self-care (01) ==
PROVIDERS: Emergency Provider Family Medicine; PCP Family Medicine
DX: R09.1 Pleurisy (principal); M94.0 Chondrocostal junction syndrome [Tietze]; F17.210 Nicotine dependence, cigarettes, uncomplicated
CPT/HCPCS: 71046; 96372; 99284; J1885

== ENCOUNTER 2022-09-06 21:52 | Emergency (ER) | payer MEDICAID, SELFPAY ==
[2022-09-06 22:00] VITALS: BP 163/109; PULSE 85; RESP 18; TEMP 36.5; O2SAT 81; BMI 24.4
--- NOTE | 2022-09-06 22:11 | ECG_ITS ---
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 Measurements Intervals [place] Rate: 84 P: 64 VA: 151 QRS: 87 QRSD: 95 T: 26 QT: 364 QTc: 432 Interpretive Statements SINUS RHYTHM WITH SINUS ARRHYTHMIA INTERPRETATION BASED ON A DEFAULT AGE OF 40 YEARS Compared to ECG 04/21/2022 10:44:37 No significant changes Electronically Signed On 09-07-2022 8:49:09 DISC PAD PLATE FILLER by Zoe Bojorquez M.D. [email or web address]
--- NOTE | 2022-09-06 22:11 | XRR_ITS ---
PROCEDURE INFORMATION: Exam: XR Chest Exam date and time: 09/06/2022 10:15 PM Age: 36 years old Clinical indication: Sternal or substernal pain and left-sided; Prior surgery; Surgery type: RT clavicle; Additional info: Cp TECHNIQUE: Imaging protocol: Radiologic exam of the chest. Views: 1 view. COMPARISON: CR XR chest 2V* [id number] 05/21/2022 12:33 PM FINDINGS: Lungs: No CHF/pulmonary edema. Visible lungs appear essentially clear. Pleural spaces: No visible pneumothorax. No definite pleural fluid. Heart/Mediastinum: Heart size is within normal limits. Bones/joints: Old right clavicle fracture again noted. XR/XR chest 1V portable [id number] IMPRESSION: 1. No definite CHF or pneumonia. 2. Other findings discussed above.
[2022-09-06 22:18] LABS: Basophils # 0.1 10^3/uL (0.0-0.1); Basophils % 0.8 %; Eosinophils % 0.3 %; Hematocrit 49.6 % (42.0-52.0); Hemoglobin 17.3 g/dL (11.7-16.6); Lymphocytes # 4.6 10^3/uL (0.8-4.8); Lymphocytes % 40.2 %; Mean Corpuscular HGB Conc 34.9 g/dL (30.0-36.0); Mean Corpuscular Hemoglobin 34.1 pg (28.0-34.0); Mean Corpuscular Volume 97.6 fl (80-94); Mean Platelet Volume 8.9 fL (7.4-10.4); Monocytes # 0.9 10^3/uL (0.2-0.9); Monocytes % 8.2 %; Neutrophils # 5.79 10^3/uL (1.8-7.7); Neutrophils % 50.2 %; Nucleated Red Blood Cells % 0 %; Platelet Count 299 10^3/cmm (130-400); Red Blood Count 5.08 10^6/uL (4.1-5.3); Red Cell Distribution Width 13.2 % (12.1-15.1); White Blood Count 11.5 10^3/uL (4.0-10.0)
[2022-09-06 22:36] LABS: Troponin(5th) Baseline 6 ng/L (0-15)
[2022-09-06 22:45] LABS: Alanine Aminotransferase 50 U/L (0-41); Albumin Level 4.6 g/dL (3.5-5.2); Alkaline Phosphatase 131 U/L (40-130); Anion Gap 17.1 (5-19); Aspartate Amino Transferase 29 U/L (0-40); Blood Urea Nitrogen 11 mg/dL (6-20); Calcium 9.6 mg/dL (8.5-10.5); Carbon Dioxide 29 mmol/L (22-29); Chloride 99 mmol/L (98-107); Globulin 2.4 g/dL (1.3-4.6); Glomerular Filtration Rate 128.3 mL/min (90-130); Glucose 146 mg/dL (65-115); Lipase 164 U/L (13-60); NT Pro B Type Natriuretic Pept 36 pg/mL (0-125); Osmolality Calculated 294 mOsm/kg (285-295); Potassium 4.1 mmol/L (3.5-5.1); Sodium 141 mmol/L (136-145); Total Bilirubin 0.3 mg/dL (0.15-1.2)
[2022-09-06 22:51] VITALS: RESP 16
[2022-09-06] MEDS: ketorolac 30 mg/mL INJ IVP (22:51)
[2022-09-06] MEDS: morphine 4 mg/mL SDV 1 mL IVP (22:51)
[2022-09-06] MEDS: ondansetron 2 mg/ML SDV 2 mL 4 MG IVP (22:51)
[2022-09-06 23:01] LABS: Alcohol Level 216 mg/dL (0-10)
[2022-09-06 23:23] VITALS: BP 129/81; PULSE 65; RESP 15; O2SAT 96
--- NOTE | 2022-09-07 02:26 | ED_ITS ---
HPI - Chest Pain General: Chief Complaint: Chest Pain Stated Complaint: ABD PAIN Time Seen by Provider: 09/06/22 22:02 History of Present Illness: 36-year-old male with a history of alcohol use. He presents with chest discomfort. He notes that hurts to take a deep breath. He is nauseated. No vomiting. No fever. No cough. He has had similar symptoms before when diagnosed with pleurisy MD complaint: chest pain Pertinent past history: other Onset (ago): hour(s) Timing of current episode: constant Prior episodes: Yes Onset: during rest Pain location: substernal Pain radiation: none Quality: sharp Relieving factors: nothing Exacerbating factors: nothing Associated symptoms: Reports dyspnea; Deny abdominal pain, diaphoresis, fever(s), leg edema, palpitations or vomiting Review of Systems Const: Denies: fever(s) or diaphoresis ENMT: Denies: throat pain Card: Reports: chest pain; Denies: palpitations Resp: Reports: dyspnea GI: Denies: abdominal pain or vomiting [facility] ED PFSH: Medical History Alcohol abuse C2 cervical fracture C7 cervical fracture Elevated transaminase level History of suicide attempt L4 vertebral fracture Pancreatitis, alcoholic, acute Polysubstance abuse Pseudocyst of pancreas PTSD (post-traumatic stress disorder) Surgical History History of appendectomy History of splenectomy Family History Other Diabetes Social History Smoking and tobacco status: current every day smoker Alcohol intake: current Alcohol intake frequency: few times a week Physical Exam Const: COMMON NORMALS: no acute distress GENERAL APPEARANCE: cooperative and lethargic; not ill appearing and not frail appearing ORIENTATION/CONSCIOUSNESS: Yes lethargic HENMT: COMMON NORMALS: normocephalic, atraumatic and Normal external nose present HEAD & SCALP: normocephalic and atraumatic FACE & SINUS: normal facial exam and face symmetric NOSE: Normal external nose present Eye: COMMON NORMALS: Equal, round and reactive pupils present and EOMs intact bilaterally PUPIL: Yes Equal, round and reactive pupils present Neck/C-Spine: GENERAL: Yes trachea midline Chest: CHEST: Yes Symmetrical chest wall rise and Yes tenderness (diffuse) Resp: COMMON NORMALS: normal respiratory effort, No retractions, No use of accessory muscles and clear to auscultation bilaterally AUSCULTATION: clear to auscultation bilaterally Cardio: COMMON NORMALS: regular rate and regular rhythm RATE: regular rate RHYTHM: regular rhythm GI: COMMON NORMALS: Normal to inspection, nondistended, normoactive bowel sounds present Extremity: COMMON NORMALS: no pedal edema Neuro: JOSE COMA SCALE: document GCS findings [place] coma scale eye opening: Spontaneous [place] coma scale verbal response: Orientated [place] coma scale motor response: Obey commands [place] coma scale total score: 15 SENSO RIUM/ORIENTATION: Yes lethargic SENSORY EXAM: Yes extremities (intact) Psych: COMMON NORMALS: speech normal SPEECH: Yes normal speech Skin: COMMON NORMALS: no rashes or lesions noted GENERAL SKIN EXAM: no rashes or lesions noted Course Vital Signs: Vital signs: Vital Signs Temperature 97.7 F 09/06/22 22:00 Pulse Rate 65 09/06/22 23:23 Respiratory Rate 15 09/06/22 23:23 Blood Pressure 129/81 09/06/22 23:23 Pulse Oximetry 96 09/06/22 23:23 MDM - Chest Pain Medical Decision Making Vitals are stable. Pain is reproducible. The patient is intoxicated and does not appear to be in pain. Chest x-ray is negative for acute infiltrate. His EKG shows no acute ST wave changes. His troponin is normal. Hemoglobin is 17.3 with a white blood cell count of 11.5. He will be treated for gastritis/esophagitis which could be related to alcohol use. Lab Data 09/06/22 21:59 09/06/22 21:59 Radiology Impressions Chest X-Ray 09/06/22 22:11 IMPRESSION: 1. No definite CHF or pneumonia. 2. Other findings discussed above. Laboratory Results WBC 11.5 10^3/uL (4.0-10.0) H 09/06/22 21:59 RBC 5.08 10^6/uL (4.1-5.3) 09/06/22 21:59 Hgb 17.3 g/dL (11.7-16.6) H 09/06/22 21:59 Hct 49.6 % (42.0-52.0) 09/06/22 21:59 MCV 97.6 fl (80-94) H 09/06/22 21:59 MCH 34.1 pg (28.0-34.0) H 09/06/22 21:59 MCHC 34.9 g/dL (30.0-36.0) 09/06/22 21:59 RDW 13.2 % (12.1-15.1) 09/06/22 21:59 Plt Count 299 10^3/cmm (130-400) 09/06/22 21:59 MPV 8.9 fL (7.4-10.4) 09/06/22 21:59 Neut % (Auto) 50.2 % 09/06/22 21:59 Lymph % (Auto) 40.2 % 09/06/22 21:59 [place] % (Auto) 8.2 % 09/06/22 21:59 Eos % (Auto) 0.3 % 09/06/22 21:59 Baso % (Auto) 0.8 % 09/06/22 21:59 Neut # (Auto) 5.79 10^3/uL (1.8-7.7) 09/06/22 21:59 Lymph # (Auto) 4.6 10^3/uL (0.8-4.8) 09/06/22 21:59 [place] # (Auto) 0.9 10^3/uL (0.2-0.9) 09/06/22 21:59 Eos # (Auto) 0.0 10^3/uL (0.0-0.8) 09/06/22 21:59 Baso # (Auto) 0.1 10^3/uL (0.0-0.1) 09/06/22 21:59 Nucleated RBC % (auto) 0 % 09/06/22 21:59 Nucleated RBCs # 0.0 /100WBC 09/06/22 21:59 Sodium 141 mmol/L (136-145) 09/06/22 21:59 Potassium 4.1 mmol/L (3.5-5.1) 09/06/22 21:59 Chloride 99 mmol/L (98-107) 09/06/22 21:59 Carbon Dioxide 29 mmol/L (22-29) 09/06/22 21:59 Anion Gap 17.1 (5-19) 09/06/22 21:59 BUN 11 mg/dL (6-20) 09/06/22 21:59 Creatinine 0.7 mg/dL (0.7-1.2) 02 21:59 GFR Calculation 128.3 mL/min (90-130) 09/06/22 21:59 Glucose 146 mg/dL (65-115) H 09/06/22 21:59 Calculated Osmolality 294 mOsm/kg (285-295) 09/06/22 21:59 Calcium 9.6 mg/dL (8.5-10.5) 09/06/22 21:59 Total Bilirubin 0.3 mg/dL (0.15-1.2) 09/06/22 21:59 AST 29 U/L (0-40) 09/06/22 21:59 ALT 50 U/L (0-41) H 09/06/22 21:59 Alkaline Phosphatase 131 U/L (40-130) H 09/06/22 21:59 Troponin T Baseline 6 ng/L (0-15) 09/06/22 21:59 NT-Pro-B Natriuret Pep 36 pg/mL (0-125) 09/06/22 21:59 Total Protein 7.0 g/dL (6.6-8.7) 09/06/22 21:59 Albumin 4.6 g/dL (3.5-5.2) 09/06/22 21:59 Globulin 2.4 g/dL (1.3-4.6) 09/06/22 21:59 Lipase 164 U/L (13-60) H 09/06/22 21:59 Ethyl Alcohol 216 mg/dL (0-10) H 09/06/22 21:59 Discharge Plan Discharge Patient Disposition: Home Clinical Impression: Chest pain, Alcohol intoxication, Esophagitis Condition: Stable Prescriptions: New Prevacid 30 mg capsule,delayed release(DR/EC) 30 mg PO DAILY Qty: 30 0RF No Action naproxen 500 mg tablet 500 mg PO BID PRN (Reason: pain) Qty: 30 1RF Discharge Orders: Discharge ED (Routine); Ordered 09/06/22 Ordered By: Demetrio King Referrals: Mahamed Sales MD [Primary Care Provider] - 1-3 days Patient Instructions: Esophagitis (ED) Activity Restrictions/Additional Instructions: Medication as directed. Return for worsening symptoms despite treatment. See your doctor this coming week. Coding Level of Care Code ED Drafter Assistant for Marko Avery
== END 2022-09-06 23:24 | disposition home or self-care (01) ==
PROVIDERS: Emergency Provider Emergency Medicine; PCP Family Medicine
DX: R07.9 Chest pain, unspecified (principal); K20.90 Esophagitis, unspecified without bleeding; F10.129 Alcohol abuse with intoxication, unspecified; Y90.7 Blood alcohol level of 200-239 mg/100 ml; F17.210 Nicotine dependence, cigarettes, uncomplicated
CPT/HCPCS: 71045; 80053; 80307; 83690; 83880; 84484; 85025; 93005; 96374; 96375; 99285; J1885; J2270; J2405

== ENCOUNTER 2022-09-07 06:51 | Inpatient (IN) | payer MEDICAID, SELFPAY ==
[2022-09-07] VITALS (21 sets, daily range): BP systolic 153–208; BP diastolic 91–121; PULSE 0–106; RESP 14–29; TEMP 36.4–36.8; O2SAT 94–99; BMI 24.4
--- NOTE | 2022-09-07 06:54 | ED_ITS ---
HPI - Alcohol General: Chief Complaint: Abdominal Pain Stated Complaint: ABD PAIN Time Seen by Provider: 09/07/22 06:52 Source: patient Mode of arrival: ambulatory History of Present Illness: 36-year-old male presents to the emergency room was seen last night was acutely intoxicated exam labs were normal and he was discharged home. His lipase last night was 164. Patient does admit to drinking half a pint or more of hard liquor per day. States he has worsening left upper quadrant abdominal discomfort continued to have nausea and vomiting. Denies any medic easy melena hematemesis or coffee-ground emesis. Patient remembers being her last time but does not remember any specific instructions he received. He has had a history of pancreatitis in the past. Patient denies any recent trauma. 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 Chronic alcohol use: Yes Previous visits for alcohol intoxication: Yes Recent trauma: No Associated symptoms: Reports abdominal pain, nausea and vomiting; Deny depression, diaphoresis or hematemesis Treatments prior to arrival: none Review of Systems Const: Denies: fever(s), chills, fatigue, malaise or diaphoresis ENMT: Denies: throat pain, ear or mastoid pain, nasal discharge or nasal congestion Card: Denies: chest pain, edema, dyspnea on exertion or orthopnea Resp: Denies: dyspnea, productive cough or non-productive cough GI: Reports: abdominal pain, nausea and vomiting; Denies: hematemesis : Denies: flank pain, dysuria, urinary frequency or urinary urgency Musc: Denies: neck pain or back pain Skin/Breast: Denies: rash or pruritus Psych: Denies: depression PFSH ED PFSH: Medical History Alcohol abuse C2 cervical fracture C7 cervical fracture Elevated transaminase level History of suicide attempt L4 vertebral fracture Pancreatitis, alcoholic, acute Polysubstance abuse Pseudocyst of pancreas PTSD (post-traumatic stress disorder) Surgical History History of appendectomy History of splenectomy Family History Other Diabetes Social History Smoking and tobacco status: current every day smoker Alcohol intake: current Alcohol intake frequency: few times a week Physical Exam Const: COMMON NORMALS: no acute distress GENERAL APPEARANCE: cooperative and comfortable ORIENTATION/CONSCIOUSNESS: Yes awake, Yes oriented to person, Yes oriented to place and Yes oriented to time HENMT: COMMON NORMALS: normocephalic, atraumatic and hearing grossly normal bilaterally HEAD & SCALP: normocephalic and atraumatic Resp: COMMON NORMALS: normal respiratory effort, No retractions, No use of accessory muscles and clear to auscultation bilaterally AUSCULTATION: clear to auscultation bilaterally Cardio: COMMON NORMALS: regular rate, regular rhythm and No murmurs present (Cardio) RATE: regular rate RHYTHM: regular rhythm GI: COMMON NORMALS: No hepatosplenomegaly present AUSCULTATION: Yes n ormoactive bowel sounds PALPATION: Yes Tenderness to palpation present (GI) Details: LUQ, No Guarding due to palpation present (GI) and Yes No hepatosplenomegaly present Extremity: COMMON NORMALS: normal to inspection, capillary refill normal, no clubbing, cyanosis or edema, no calf tenderness and no pedal edema Neuro: SENSORIUM/ORIENTATION: Yes oriented to person, Yes oriented to place and Yes oriented to time Skin: COMMON NORMALS: no rashes or lesions noted GENERAL SKIN EXAM: no rashes or lesions noted Course Vital Signs: Vital signs: Vital Signs Temperature 97.6 F 09/07/22 06:54 Pulse Rate 70 09/07/22 09:30 Respiratory Rate 17 09/07/22 09:30 Blood Pressure 154/99 09/07/22 09:30 Pulse Oximetry 97 09/07/22 09:30 Oxygen Delivery Me thod 09/07/22 06:57 MDM - Alcohol Medical Decision Making Worsening acute pancreatitis lipase 164 last night climbed over 600. One of his transaminases ALT is slightly elevated T. bili is normal white count 16.3. He has been started on Protonix we will keep n.p.o. IV fluids CT pending discussed with hospitalist orders written Medical Records I reviewed the patient's medical records. Lab Data I reviewed the patient's lab results. 09/07/22 06:12 09/07/22 06:12 Radiology Impressions Abdomen/Pelvis CT 09/07/22 08:39 IMPRESSION: 1. Mild acute pancreatitis, as noted above. 2. Unchanged central pancreatic body region low-attenuation 4.4 x 4.4 x 4.1 cm lesion, most suggestive of a pseudocyst. Laboratory Results WBC 16.3 10^3/uL (4.0-10.0) H 09/07/22 06:12 RBC 4.94 10^6/uL (4.1-5.3) 09/07/22 06:12 Hgb 16.7 g/dL (11.7-16.6) H 09/07/22 06:12 Hct 47.9 % (42.0-52.0) 09/07/22 06:12 MCV 97.0 fl (80-94) H 09/07/22 06:12 MCH 33.8 pg (28.0-34.0) 09/07/22 06:12 MCHC 34.9 g/dL (30.0-36.0) 09/07/22 06:12 RDW 13.0 % (12.1-15.1) 09/07/22 06:12 Plt Count 288 10^3/cmm (130-400) 09/07/22 06:12 MPV 9.1 fL (7.4-10.4) 09/07/22 06:12 Neut % (Auto) 64.5 % 09/07/22 06:12 Lymph % (Auto) 24.2 % 09/07/22 06:12 [place] % (Auto) 9.9 % 09/07/22 06:12 Eos % (Auto) 0.6 % 09/07/22 06:12 Baso % (Auto) 0.4 % 09/07/22 06:12 Neut # (Auto) 10.51 10^3/uL (1.8-7.7) H 09/07/22 06:12 Lymph # (Auto) 4.0 10^3/uL (0.8-4.8) 09/07/22 06:12 [place] # (Auto) 1.6 10^3/uL (0.2-0.9) H 09/07/22 06:12 Eos # (Auto) 0.1 10^3/uL (0.0-0.8) 09/07/22 06:12 Baso # (Auto) 0.1 10^3/uL (0.0-0.1) 09/07/22 06:12 Nucleated RBC % (auto) 0 % 09/07/22 06:12 Nucleated RBCs # 0.0 /100WBC 09/07/22 06:12 Sodium 138 mmol/L (136-145) 09/07/22 06:12 Potassium 3.3 mmol/L (3.5-5.1) L 09/07/22 06:12 Chloride 97 mmol/L (98-107) L 09/07/22 06:12 Carbon Dioxide 24 mmol/L (22-29) 09/07/22 06:12 Anion Gap 20.3 (5-19) H 09/07/22 06:12 BUN 12 mg/dL (6-20) 09/07/22 06:12 Creatinine 0.8 mg/dL (0.7-1.2) 09/07/22 06:12 GFR Calculation 110.0 mL/min (90-130) 09/07/22 06:12 Glucose 121 mg/dL (65-115) H 09/07/22 06:12 Calculated Osmolality 287 mOsm/kg (285-295) 09/07/22 06:12 Calcium 8.6 mg/dL (8.5-10.5) 09/07/22 06:12 Total Bilirubin 0.4 mg/dL (0.15-1.2) 09/07/22 06:12 AST 27 U/L (0-40) 09/07/22 06:12 ALT 44 U/L (0-41) H 09/07/22 06:12 Alkaline Phosphatase 125 U/L (40-130) 09/07/22 06:12 Total Protein 7.2 g/dL (6.6-8.7) 09/07/22 06:12 Albumin 4.6 g/dL (3.5-5.2) 09/07/22 06:12 Globulin 2.6 g/dL (1.3-4.6) 09/07/22 06:12 Lipase 610 U/L (13-60) H 09/07/22 06:12 Discharge Plan Discharge Patient Disposition: Admitted As Inpatient Admit Provider: Rosanne Damon Clinical Impression: Acute pancreatitis, Alcohol intoxication, Alcoholism Condition: Stable Coding Level of Care Code ED Community Service Officer Coordinator for g Fwd Exam Detailed
--- NOTE | 2022-09-07 06:54 | PC.NURSE ---
This nurse received report from this patient's nurse that saw him overnight. Patient stated to that nurse that he was going to be back in a few hours when he was being discharged.
--- NOTE | 2022-09-07 07:00 | ECG_ITS ---
[facility] Test Date: 2022-09-07 Pat Name: Elena Hernandez Department: Room: Gender: Male Garage Hand: : 1985 Requested By: Isael Flores Order Number: [id number] Bnoi MD: Zoe Bojorquez M.D. Measurements Intervals [place] Rate: 82 P: 75 FL: 136 QRS: 87 QRSD: 96 T: 75 QT: 409 QTc: 479 Interpretive Statements SINUS RHYTHM WITH SINUS ARRHYTHMIA Compared to ECG 09/06/2022 21:57:04 No significant changes Electronically Signed On 09-07-2022 8:48:32 ASP NET C DEVELOPER by Zoe Bojorquez M.D. [id number]
[2022-09-07] MEDS: sodium chloride 0.9% 1,000 ML 999 ML IV (07:09)
[2022-09-07] MEDS: ondansetron 2 mg/ML SDV 2 mL 4 MG IVP (07:09)
[2022-09-07 07:21] LABS: Basophils # 0.1 10^3/uL (0.0-0.1); Basophils % 0.4 %; Eosinophils # 0.1 10^3/uL (0.0-0.8); Eosinophils % 0.6 %; Hematocrit 47.9 % (42.0-52.0); Hemoglobin 16.7 g/dL (11.7-16.6); Lymphocytes % 24.2 %; Mean Corpuscular HGB Conc 34.9 g/dL (30.0-36.0); Mean Corpuscular Hemoglobin 33.8 pg (28.0-34.0); Mean Platelet Volume 9.1 fL (7.4-10.4); Monocytes # 1.6 10^3/uL (0.2-0.9); Monocytes % 9.9 %; Neutrophils # 10.51 10^3/uL (1.8-7.7); Neutrophils % 64.5 %; Nucleated Red Blood Cells % 0 %; Platelet Count 288 10^3/cmm (130-400); Red Blood Count 4.94 10^6/uL (4.1-5.3); White Blood Count 16.3 10^3/uL (4.0-10.0)
[2022-09-07 07:51] LABS: Alanine Aminotransferase 44 U/L (0-41); Albumin Level 4.6 g/dL (3.5-5.2); Alkaline Phosphatase 125 U/L (40-130); Anion Gap 20.3 (5-19); Aspartate Amino Transferase 27 U/L (0-40); Blood Urea Nitrogen 12 mg/dL (6-20); Calcium 8.6 mg/dL (8.5-10.5); Carbon Dioxide 24 mmol/L (22-29); Chloride 97 mmol/L (98-107); Globulin 2.6 g/dL (1.3-4.6); Glucose 121 mg/dL (65-115); Osmolality Calculated 287 mOsm/kg (285-295); Potassium 3.3 mmol/L (3.5-5.1); Sodium 138 mmol/L (136-145); Total Bilirubin 0.4 mg/dL (0.15-1.2); Total Protein 7.2 g/dL (6.6-8.7)
[2022-09-07] MEDS: morphine 4 mg/mL SDV 1 mL 2 MG IVP ×4 (07:54→23:34)
[2022-09-07] MEDS: pantoprazole 40 mg SDV IVP (07:54)
[2022-09-07 08:01] LABS: Lipase 610 U/L (13-60)
[2022-09-07] MEDS: morphine 4 mg/mL SDV 1 mL IVP ×3 (08:16→11:52)
--- NOTE | 2022-09-07 08:39 | CTR_ITS ---
PROCEDURE INFORMATION: Exam: CT Abdomen And Pelvis Without Contrast Exam date and time: 09/07/2022 8:47 AM Age: 36 years old Clinical indication: Abdominal pain; Epigastric; Prior surgery; Surgery type: Spleen, TECHNIQUE: Imaging protocol: Computed tomography of the abdomen and pelvis without contrast. Radiation optimization: All CT scans at this facility use at least one of these dose optimization techniques: automated exposure control; mA and/or kV adjustment per patient size (includes targeted exams where dose is matched to clinical indication); or iterative reconstruction. Other protocol: This patient has received [address] and 0 known cardiac nuclear medicine studies in the 12 months prior to the current study. COMPARISON: CT abdomen pelvis w con* [id number] 04/21/2022 12:31 PM RADIATION DOSE METRICS: Total DLP (mGy-cm): 471.18 FINDINGS: Lungs: The visualized portions of the lung bases are normal. Liver: The non-contrast enhanced liver appears unremarkable. Gallbladder and bile ducts: Mildly distended gallbladder is seen. No calcified stones. No biliary ductal dilatation. Pancreas: Mild peripancreatic fat stranding and inflammatory changes are seen, consistent with acute pancreatitis. Central pancreatic body region low-attenuation 4.4 x 4.4 x 4.1 cm lesion is once again seen, most suggestive of a pseudocyst. Mild pancreatic head region and right anterior pararenal space region edema/fluid. No pancreatic ductal dilatation. No loculated peripancreatic fluid collections seen. Evaluation overall limited on noncontrast imaging. Spleen: No spleen is seen. Recommend correlation with prior surgical history. Adrenal glands: Normal CT appearance of the adrenals. No mass. Kidneys and ureters: Normal renal contour. No mass seen. No hydronephrosis. Stomach and bowel: The noncontrast opacified stomach appears unremarkable. Moderate duodenal and mild proximal jejunum fold prominence is seen, likely related to adjacent inflammatory changes. The noncontrast opacified colonic loops show poor distension of the transverse colon with mild wall prominence. This may be related to adjacent inflammatory changes. Poor distension of the distal descending colon and sigmoid colon is also seen, which limits assessment.The lack of orally administered contrast material limits assessment. Appendix: No appendix is specifically identified. No CT evidence of fluid collections or inflammatory stranding adjacent to the cecum. Intraperitoneal space: No free air. No significant fluid collection. Vasculature: No abdominal aortic aneurysm. Lymph nodes: No enlarged lymph nodes. Urinary bladder: No bladder debris. No wall thickening. Reproductive: Unremarkable as visualized. Bones/joints: No acute osseous abnormality seen. Unchanged disc space narrowing and degenerative disc disease changes are seen in the lower lumbar region. Soft tissues: Unchanged small bilateral inguinal hernias are seen, containing peritoneal fat. CT/CT abdomen pelvis wo con [id number] IMPRESSION: 1. Mild acute pancreatitis, as noted above. 2. Unchanged central pancreatic body region low-attenuation 4.4 x 4.4 x 4.1 cm lesion, most suggestive of a pseudocyst.
[2022-09-07] MEDS: enoxaparin 40 mg/0.4 mL Syringe SUBCUT (11:51)
[2022-09-07] MEDS: multivitamin therapeutic Tablet 1 TAB PO (11:52)
[2022-09-07] MEDS: D5-NS 0.45% + KCL 20 mEq 20 MEQ/1,000 ML BAG 150 MEQ IV (11:53)
[2022-09-07] MEDS: thiamine 100 mg Tablet PO (12:10)
[2022-09-07] MEDS: sodium chloride 0.9% 1,000 ML 125 ML IV ×2 (12:36→19:31)
--- NOTE | 2022-09-07 16:41 | PM.HP ---
Providers/Chief Complaint Admitting Physician: Rosanne Damon MD Primary Care Provider: Mahamed Sales MD Chief Complaint: ABD PAIN History of Present Illness Elena Hernandez is a 36 year old male that presented to the emergency room initially overnight with acute alcohol intoxication and chest pain. His EKG and troponins were normal and patient was discharged. He did receive treatment for possible gastritis/esophagitis which could be associated with alcohol use. He returned to the emergency room this morning after he complained of worsening left upper quadrant abdominal pain with nausea and vomiting. Denies any hematemesis. His lipase returned slightly elevated at 164. CT of his abdomen and pelvis showed pancreatitis. Review of Systems General: Reports: 10 or more systems reviewed and unremarkable except in HPI and below Const: Denies: fever(s), chills or body aches Eyes: Denies: change in vision, blurry vision or photophobia ENMT: Reports: hoarseness; Denies: throat pain, enlarged tonsils, odynophagia or nasal congestion Card: Denies: chest pain, palpitations, irregular heart rhythm, edema, swelling of feet/ankles, lightheadedness, pre-syncope, dyspnea on exertion or orthopnea Resp: Denies: dyspnea, productive cough, non-productive cough, wheezing, stridor, pain on inspiration, change in phlegm color, hemoptysis or chest congestion GI: Denies: abdominal pain, nausea, vomiting, hematemesis, coffee ground emesis, dysphagia, heartburn, diarrhea, constipation, GI cramping, change in stool character, hematochezia or melena : Denies: flank pain, dysuria, urinary frequency, urinary urgency, urinary hesitancy or hematuria Musc: Denies: neck pain, back pain, extremity pain, joint swelling, joint warmth or deformity Neuro: Denies: headache(s), numbness in extremities, weakness in extremities, sensory changes, difficulty walking, frequent falls, dizziness, vertigo, behavioral changes, Slurred speech present or seizure-like activity Psych: Denies: anxiety, depression, suicidal ideation or homicidal ideation Endo: Denies: polyuria, polydipsia, tired all the time, cold intolerance or hot flashes Javier/Lymph: Denies: easy bruising or easy bleeding Medications/Allergies Home Medications Medication Instructions Recorded Confirmed Last Taken Type naproxen 500 mg tablet 500 mg PO BID PRN pain #30 tabs 07/29/22 09/07/22 Unknown Rx Allergies Allergy/AdvReac Type Severity Reaction Status Date / Time No Known Allergies Allergy Verified 07/29/22 14:48 PFSH Acute PFSH: Medical History Alcohol abuse C2 cervical fracture C7 cervical fracture Elevated transaminase level History of suicide attempt L4 vertebral fracture Pancreatitis, alcoholic, acute Polysubstance abuse Pseudocyst of pancreas PTSD (post-traumatic stress disorder) Surgical History History of appendectomy History of splenectomy Family History Other Diabetes Social History Smoking and tobacco status: current every day smoker Alcohol intake: current Alcohol intake frequency: few times a week Vitals/I&O/Wt Last Vital Signs Temp 98.3 F 09/07/22 15:52 Pulse 95 09/07/22 15:52 Resp 15 09/07/22 15:52 BP 173/94 09/07/22 11:54 Pulse Ox 96 09/07/22 15:52 O2 Del Method 09/07/22 15:52 09/07/22 09/07/22 09/07/22 06:59 14:59 22:59 Intake Total 1105 / 1105 Output Total 500 / 500 Balance 1105 / 1105 -500 / 605 Weight last 48 hrs Weight 79.379 kg Weight 79.379 kg Physical Exam Narrative: General: No acute distress, AO x3 HEENT: PERRLA, pupils bilaterally equal and reactive, pallors not present Chest: Normal vesicular breath sounds, no added sounds, equal good air entry bilaterally CVS: S1-S2 regular, no murmurs, no tachycardia, no gallops, no rubs Abdomen: Soft, tender to palpation in the epigastric region Neuro: No focal neurological deficits Data 09/07/22 06:12 09/07/22 06:12 Other Labs: Radiology Impressions Abdomen/Pelvis CT 09/07/22 08:39 IMPRESSION: 1. Mild acute pancreatitis, as noted above. 2. Unchanged central pancreatic body region low-attenuation 4.4 x 4.4 x 4.1 cm lesion, most suggestive of a pseudocyst. Laboratory Results WBC 16.3 10^3/uL (4.0-10.0) H 09/07/22 06:12 RBC 4.94 10^6/uL (4.1-5.3) 09/07/22 06:12 Hgb 16.7 g/dL (11.7-16.6) H 09/07/22 06:12 Hct 47.9 % (42.0-52.0) 09/07/22 06:12 MCV 97.0 fl (80-94) H 09/07/22 06:12 MCH 33.8 pg (28.0-34.0) 09/07/22 06:12 MCHC 34.9 g/dL (30.0-36.0) 09/07/22 06:12 RDW 13.0 % (12.1-15.1) 09/07/22 06:12 Plt Count 288 10^3/cmm (130-400) 09/07/22 06:12 MPV 9.1 fL (7.4-10.4) 09/07/22 06:12 Neut % (Auto) 64.5 % 09/07/22 06:12 Lymph % (Auto) 24.2 % 09/07/22 06:12 [place] % (Auto) 9.9 % 09/07/22 06:12 Eos % (Auto) 0.6 % 09/07/22 06:12 Baso % (Auto) 0.4 % 09/07/22 06:12 Neut # (Auto) 10.51 10^3/uL (1.8-7.7) H 09/07/22 06:12 Lymph # (Auto) 4.0 10^3/uL (0.8-4.8) 09/07/22 06:12 [place] # (Auto) 1.6 10^3/uL (0.2-0.9) H 09/07/22 06:12 Eos # (Auto) 0.1 10^3/uL (0.0-0.8) 09/07/22 06:12 Baso # (Auto) 0.1 10^3/uL (0.0-0.1) 09/07/22 06:12 Nucleated RBC % (auto) 0 % 09/07/22 06:12 Nucleated RBCs # 0.0 /100WBC 09/07/22 06:12 Sodium 138 mmol/L (136-145) 09/07/22 06:12 Potassium 3.3 mmol/L (3.5-5.1) L 09/07/22 06:12 Chloride 97 mmol/L (98-107) L 09/07/22 06:12 Carbon Dioxide 24 mmol/L (22-29) 09/07/22 06:12 Anion Gap 20.3 (5-19) H 09/07/22 06:12 BUN 12 mg/dL (6-20) 09/07/22 06:12 Creatinine 0.8 mg/dL (0.7-1.2) 09/07/22 06:12 GFR Calculation 110.0 mL/min (90-130) 09/07/22 06:12 Glucose 121 mg/dL (65-115) H 09/07/22 06:12 Calculated Osmolality 287 mOsm/kg (285-295) 09/07/22 06:12 Calcium 8.6 mg/dL (8.5-10.5) 09/07/22 06:12 Total Bilirubin 0.4 mg/dL (0.15-1.2) 09/07/22 06:12 AST 27 U/L (0-40) 09/07/22 06:12 ALT 44 U/L (0-41) H 09/07/22 06:12 Alkaline Phosphatase 125 U/L (40-130) 09/07/22 06:12 Total Protein 7.2 g/dL (6.6-8.7) 09/07/22 06:12 Albumin 4.6 g/dL (3.5-5.2) 09/07/22 06:12 Globulin 2.6 g/dL (1.3-4.6) 09/07/22 06:12 Lipase 610 U/L (13-60) H 09/07/22 06:12 A&P Assessment and plan (1) Acute pancreatitis: Patient currently with acute pancreatitis in a background of recurrent chronic pancreatitis. N.p.o. except for sips and chips. IV fluid normal saline at [address] with mild pancreatitis, no signs of necrotizing pancreatitis over peripancreatic collections.? Overall stable likely pseudocyst as noted on CT abdomen. Pain control with morphine alternating with Toradol. Monitor for improvement with IV fluids, supportive management. Etiology likelgy likely to be alcohol abuse. (2) Alcohol intoxication: CIWA monitoring prn ativan per protocol Attestations Medical Necessity Statement*: >2 midnight admission anticipated for acute pancreatitis, bowel rest, IVF , pain management Coding Level of Care Code Acute Code for [facility] Diagnoses Acute pancreatitis K85.90 Alcohol intoxication F10.929
[2022-09-07 18:20] LABS: Triglycerides 210 mg/dL (0-150)
[2022-09-07] MEDS: hyDRALAzine 20 mg/mL INJ 1 mL 5 MG IVP (20:19)
[2022-09-07] MEDS: ketorolac 30 mg/mL INJ 15 MG IVP (20:20)
--- NOTE | 2022-09-07 21:40 | PC.NURSE ---
Patient's primary nurse notified of elevated blood pressure. Medications given by that nurse.
[2022-09-07] MEDS: hyDRALAzine 20 mg/mL INJ 1 mL 10 MG IVP (22:23)
[2022-09-08] VITALS (13 sets, daily range): BP systolic 152–187; BP diastolic 96–116; PULSE 94–116; RESP 16–22; TEMP 36.6–37.3; O2SAT 97–99
--- NOTE | 2022-09-08 00:19 | PC.NURSE ---
Blood pressure repeated in left arm with a reading of 161/114. Both reported to primary nurse.
[2022-09-08] MEDS: morphine 4 mg/mL SDV 1 mL 2 MG IVP ×4 (01:09→22:40)
[2022-09-08] MEDS: sodium chloride 0.9% 1,000 ML 125 ML IV ×3 (03:29→18:09)
[2022-09-08] MEDS: hyDRALAzine 20 mg/mL INJ 1 mL 10 MG IVP (03:37)
[2022-09-08 04:03] LABS: Basophils % 0.3 %; Eosinophils % 0.3 %; Hematocrit 45.8 % (42.0-52.0); Hemoglobin 16.1 g/dL (11.7-16.6); Lymphocytes # 1.9 10^3/uL (0.8-4.8); Lymphocytes % 12.5 %; Mean Corpuscular HGB Conc 35.2 g/dL (30.0-36.0); Mean Corpuscular Hemoglobin 34.7 pg (28.0-34.0); Mean Corpuscular Volume 98.7 fl (80-94); Mean Platelet Volume 9.1 fL (7.4-10.4); Monocytes # 1.1 10^3/uL (0.2-0.9); Monocytes % 7.4 %; Neutrophils % 78.6 %; Nucleated Red Blood Cells % 0 %; Platelet Count 216 10^3/cmm (130-400); Red Blood Count 4.64 10^6/uL (4.1-5.3); Red Cell Distribution Width 13.3 % (12.1-15.1); White Blood Count 15.1 10^3/uL (4.0-10.0)
[2022-09-08 04:30] LABS: Alanine Aminotransferase 27 U/L (0-41); Albumin Level 3.8 g/dL (3.5-5.2); Alkaline Phosphatase 127 U/L (40-130); Anion Gap 11.7 (5-19); Aspartate Amino Transferase 22 U/L (0-40); Blood Urea Nitrogen 7 mg/dL (6-20); Calcium 8.2 mg/dL (8.5-10.5); Carbon Dioxide 27 mmol/L (22-29); Chloride 96 mmol/L (98-107); Globulin 2.4 g/dL (1.3-4.6); Glomerular Filtration Rate 128.3 mL/min (90-130); Glucose 96 mg/dL (65-115); Osmolality Calculated 270 mOsm/kg (285-295); Potassium 3.7 mmol/L (3.5-5.1); Sodium 131 mmol/L (136-145); Total Bilirubin 0.7 mg/dL (0.15-1.2); Total Protein 6.2 g/dL (6.6-8.7)
[2022-09-08] MEDS: ketorolac 30 mg/mL INJ 15 MG IVP ×2 (04:49→18:09)
--- NOTE | 2022-09-08 04:49 | PC.NURSE ---
Blood pressure obtained in bilateral arms . Right arm 161/108, left arm 173/116 Primary nurse notified
[2022-09-08] MEDS: multivitamin therapeutic Tablet 1 TAB PO (10:04)
[2022-09-08] MEDS: thiamine 100 mg Tablet PO (10:04)
[2022-09-08] MEDS: folic acid 1 mg Tablet PO (10:04)
[2022-09-08] MEDS: pantoprazole DR 40 mg Tablet PO (10:04)
--- NOTE | 2022-09-08 11:51 | PM.PN ---
Subjective Subjective: Patient is still complaining of nausea and abdominal pain no active emesis Able to tolerate diet Hypertensive and tachycardic related to pain Patient is stating that he is wanting to quit because he recently got custody of [id number] son he just had a little bit of alcohol on his birthday Vitals/I&O/Wt Last Vital Signs Temp 98.1 F 09/08/22 08:00 Pulse 109 H 09/08/22 08:00 Resp 17 09/08/22 08:00 BP 156/96 09/08/22 08:00 Pulse Ox 98 09/08/22 08:00 O2 Del Method 09/08/22 08:00 09/07/22 09/08/22 09/08/22 22:59 06:59 14:59 Intake Total 1344.583 / 2449.583 1595.833 / 4045.416 1187.917 / 1187.917 Output Total 1999 / 1999 700 / 2700 Balance -655.417 / 449.583 895.833 / 3558.114 4404.917 / 1187.917 Weight last 48 hrs Weight 79.379 kg Weight 79.379 kg Physical Exam Narrative: Patient is laying supine Complaining of nausea and pain in mid epigastric region Looks dehydrated Awake and alert No active tremors No hallucination GCS 15 PERRLA S1, S2 sinus tachycardia No audible stridor or wheezing Data 09/08/22 03:42 09/08/22 03:42 A&P Assessment and plan (1) Alcohol intoxication: (2) Esophagitis: (3) Acute pancreatitis: (4) History of splenectomy: Plan Alcohol-related pancreatitis Complaining of pain epigastric pain Hypokalemia: Repleted Advance diet Active emesis Add Dilaudid for pain management Continue normal saline however I will decrease the rate to 100 mill per hour Patient counseled, continue thiamine and folic acid Phenobarbital twice daily for as needed use, nurse updated Tachycardia is related to pain Patient likely will be discharged 4 hours if clinically doing well Full code GI soft diet today No signs of necrotic pancreas, afebrile No need of antibiotics for now Patient responds better to anti-inflammatory meds Attestations Medical Necessity Statement*: Discharge tomorrow [place] [address] Patient Type Established Medical Decision Making Low Complexity Diagnoses Alcohol intoxication F10.929 Esophagitis K20.90 Acute pancreatitis K85.90 History of splenectomy Z90.81
[2022-09-08] MEDS: enoxaparin 40 mg/0.4 mL Syringe SUBCUT (12:24)
[2022-09-08] MEDS: potassium chloride ER 20 mEq Tablet 40 MEQ PO (12:24)
[2022-09-08] MEDS: HYDROmorphone 1 mg/mL INJ 1 mL 0.4 MG IVP ×2 (12:24→20:02)
[2022-09-09] VITALS (9 sets, daily range): BP systolic 113–151; BP diastolic 80–96; PULSE 89–97; RESP 15–18; TEMP 36.8–37.1; O2SAT 93–98
[2022-09-09] MEDS: HYDROmorphone 1 mg/mL INJ 1 mL 0.4 MG IVP (00:20)
[2022-09-09] MEDS: ketorolac 30 mg/mL INJ 15 MG IVP ×2 (00:20→10:38)
[2022-09-09] MEDS: sodium chloride 0.9% 1,000 ML 125 ML IV (04:00)
[2022-09-09] MEDS: morphine 4 mg/mL SDV 1 mL 2 MG IVP (04:03)
[2022-09-09 05:45] LABS: Basophils % 0.3 %; Eosinophils # 0.5 10^3/uL (0.0-0.8); Eosinophils % 3.9 %; Hematocrit 42.7 % (42.0-52.0); Hemoglobin 14.7 g/dL (11.7-16.6); Lymphocytes # 2.8 10^3/uL (0.8-4.8); Lymphocytes % 20.8 %; Mean Corpuscular HGB Conc 34.4 g/dL (30.0-36.0); Mean Corpuscular Hemoglobin 34.3 pg (28.0-34.0); Mean Corpuscular Volume 99.5 fl (80-94); Mean Platelet Volume 9.4 fL (7.4-10.4); Monocytes # 0.8 10^3/uL (0.2-0.9); Monocytes % 5.9 %; Neutrophils # 9.26 10^3/uL (1.8-7.7); Neutrophils % 68.7 %; Nucleated Red Blood Cells % 0 %; Platelet Count 194 10^3/cmm (130-400); Red Blood Count 4.29 10^6/uL (4.1-5.3); Red Cell Distribution Width 13.3 % (12.1-15.1); White Blood Count 13.5 10^3/uL (4.0-10.0)
[2022-09-09 06:18] LABS: Alanine Aminotransferase 19 U/L (0-41); Albumin Level 3.3 g/dL (3.5-5.2); Alkaline Phosphatase 123 U/L (40-130); Anion Gap 13.9 (5-19); Aspartate Amino Transferase 18 U/L (0-40); Blood Urea Nitrogen 9 mg/dL (6-20); Calcium 7.9 mg/dL (8.5-10.5); Carbon Dioxide 24 mmol/L (22-29); Chloride 102 mmol/L (98-107); Globulin 2.5 g/dL (1.3-4.6); Glomerular Filtration Rate 188.1 mL/min (90-130); Glucose 79 mg/dL (65-115); Osmolality Calculated 280 mOsm/kg (285-295); Potassium 3.9 mmol/L (3.5-5.1); Sodium 136 mmol/L (136-145); Total Bilirubin 0.7 mg/dL (0.15-1.2); Total Protein 5.8 g/dL (6.6-8.7)
--- NOTE | 2022-09-09 10:23 | PM.DCS ---
Discharge Providers Date of Admission: 09/07/22 08:39 Date of Discharge: September 09, 2022 Attending Provider at Admission: Rosanne Damon MD Attending Provider at Discharge: Shirley Jimenez MD Primary Care Provider: Mahamed Sales MD Diagnoses at Discharge Discharge Diagnosis (1) Alcohol intoxication: Status: Acute (2) Esophagitis: Status: Acute (3) Acute pancreatitis: Status: Acute (4) History of splenectomy: Status: Acute Reason for Visit Reason for Visit: ABD PAIN Hospital Course Hospital Course 37-year-old male, who presented to the hospital for alcohol use pancreatitis, his diet was advanced gradually, his emesis improved, pain was still 4-6/10 on discharge patient is able to tolerate diet patient is stating that he has quit drinking he only had a couple of drinks on his birthday with his friends. He wants to go home take care of his [id number] son, he recently got custody of his son. He remained afebrile hemodynamically stable. Patient did not show any signs of necrotic pancreas, he does have pseudocyst 4 x 4 cm Physical Exam Narrative: Awake and alert S1, S2 Nonfocal neuro exam Doing well on room air Abdomen soft Discharge Data Studies Completed and Pending Completed Studies During Hospitalization Category Date Time Status CT abdomen pelvis con [id number] Stat Cat Scan 09/07/22 08:39 Completed Radiology Impressions Abdomen/Pelvis CT 09/07/22 08:39 IMPRESSION: 1. Mild acute pancreatitis, as noted above. 2. Unchanged central pancreatic body region low-attenuation 4.4 x 4.4 x 4.1 cm lesion, most suggestive of a pseudocyst. Laboratory Results WBC 13.5 10^3/uL (4.0-10.0) H 09/09/22 05:17 RBC 4.29 10^6/uL (4.1-5.3) 09/09/22 05:17 Hgb 14.7 g/dL (11.7-16.6) 09/09/22 05:17 Hct 42.7 % (42.0-52.0) 09/09/22 05:17 MCV 99.5 fl (80-94) H 09/09/22 05:17 MCH 34.3 pg (28.0-34.0) H 09/09/22 05:17 MCHC 34.4 g/dL (30.0-36.0) 09/09/22 05:17 RDW 13.3 % (12.1-15.1) 09/09/22 05:17 Plt Count 194 10^3/cmm (130-400) 09/09/22 05:17 MPV 9.4 fL (7.4-10.4) 09/09/22 05:17 Neut % (Auto) 68.7 % 09/09/22 05:17 Lymph % (Auto) 20.8 % 09/09/22 05:17 Dickinson % (Auto) 5.9 % 09/09/22 05:17 Eos % (Auto) 3.9 % 09/09/22 05:17 Baso % (Auto) 0.3 % 09/09/22 05:17 Neut # (Auto) 9.26 10^3/uL (1.8-7.7) H 09/09/22 05:17 Lymph # (Auto) 2.8 10^3/uL (0.8-4.8) 09/09/22 05:17 Dickinson # (Auto) 0.8 10^3/uL (0.2-0.9) 09/09/22 05:17 Eos # (Auto) 0.5 10^3/uL (0.0-0.8) 09/09/22 05:17 Baso # (Auto) 0.0 10^3/uL (0.0-0.1) 09/09/22 05:17 Nucleated RBC % (auto) 0 % 09/09/22 05:17 Nucleated RBCs # 0.0 /100WBC 09/09/22 05:17 Sodium 136 mmol/L (136-145) 09/09/22 05:17 Potassium 3.9 mmol/L (3.5-5.1) 09/09/22 05:17 Chloride 102 mmol/L (98-107) 09/09/22 05:17 Carbon Dioxide 24 mmol/L (22-29) 09/09/22 05:17 Anion Gap 13.9 (5-19) 09/09/22 05:17 BUN 9 mg/dL (6-20) 09/09/22 05:17 Creatinine 0.5 mg/dL (0.7-1.2) L 09/09/22 05:17 GFR Calculation 188.1 mL/min (90-130) H 09/09/22 05:17 Glucose 79 mg/dL (65-115) 09/09/22 05:17 Calculated Osmolality 280 mOsm/kg (285-295) L 09/09/22 05:17 Calcium 7.9 mg/dL (8.5-10.5) L 09/09/22 05:17 Total Bilirubin 0.7 mg/dL (0.15-1.2) 09/09/22 05:17 AST 18 U/L (0-40) 09/09/22 05:17 ALT 19 U/L (0-41) 09/09/22 05:17 Alkaline Phosphatase 123 U/L (40-130) 09/09/22 05:17 Total Protein 5.8 g/dL (6.6-8.7) L 09/09/22 05:17 Albumin 3.3 g/dL (3.5-5.2) L 09/09/22 05:17 Globulin 2.5 g/dL (1.3-4.6) 09/09/22 05:17 Triglycerides 210 mg/dL (0-150) H 09/07/22 06:12 Lipase 610 U/L (13-60) H 09/07/22 06:12 Vitals Last Vital Signs Temp 98.3 F 09/09/22 07:43 Pulse 97 09/09/22 07:43 Resp 18 09/09/22 07:43 BP 113/80 09/09/22 07:43 Pulse Ox 98 09/09/22 07:43 O2 Del Method 09/09/22 07:43 Discharge Plan Discharge Patient Disposition: Home Condition: Stable Prescriptions: New oxycodone 5 mg tablet 5 mg PO DAILY PRN (Reason: pain) Qty: 10 0RF folic acid 1 mg Tablet 1 mg PO DAILY Qty: 30 0RF thiamine mononitrate (vit B1) [Vitamin B-1 (mononitrate)] 100 mg Tablet 100 mg PO DAILY Qty: 30 0RF Discontinued naproxen 500 mg tablet 500 mg PO BID PRN (Reason: pain) Qty: 30 1RF Discharge Orders: Discharge Order (Routine); Ordered 09/09/22 Ordered By: Shirley Jimenez Referrals: Mahamed Sales MD [Primary Care Provider] - 09/16/22 11:30 am (appointment with myla gray) Patient Instructions: Opioid Safety Discharge Attestations Time Spent in Discharge Care*: less than 30 min Status at Discharge: Cognitive status at discharge: cognitively intact, Behavioral status at discharge: cooperative, Quality Metrics Clinical Quality Measures [ No reported AMI, CVA or VTE this stay] Coding Level of Care Code Acute Code for Chg Fwd Diagnoses Alcohol intoxication F10.929 Esophagitis K20.90 Acute pancreatitis K85.90 History of splenectomy Z90.81
[2022-09-09] MEDS: pantoprazole DR 40 mg Tablet PO (10:38)
[2022-09-09] MEDS: folic acid 1 mg Tablet PO (10:38)
[2022-09-09] MEDS: thiamine 100 mg Tablet PO (10:38)
[2022-09-09] MEDS: multivitamin therapeutic Tablet 1 TAB PO (10:38)
--- NOTE | 2022-09-09 12:24 | PC.NURSE ---
Discussed discharge, medications and follow up appointments with patient. Verbalized understanding.
== END 2022-09-09 12:30 | disposition home or self-care (01) | DRG 439 ==
LOC: ER 08:58 → MEDSURG 09:30
PROVIDERS: Admitting Provider Student in an Organized Health Care Education/Training Program; Emergency Provider Family Medicine; PCP Family Medicine; Visit Provider Internal Medicine
DX: K85.20 Alcohol induced acute pancreatitis without necrosis or infection (principal); K86.3 Pseudocyst of pancreas; F10.120 Alcohol abuse with intoxication, uncomplicated; K20.80 Other esophagitis without bleeding; I15.8 Other secondary hypertension; E87.6 Hypokalemia; R00.0 Tachycardia, unspecified; F17.200 Nicotine dependence, unspecified, uncomplicated; Z90.81 Acquired absence of spleen
CPT/HCPCS: 36415; 74176; 80053; 83690; 84478; 85025; 93005; 96372; 96374; 96375; 96376; 99285; C9113; J0360; J1170; J1650; J1885; J2270; J2405; J3411; J7030

== ENCOUNTER 2022-10-16 16:47 | Emergency (ER) | payer MEDICAID, SELFPAY ==
[2022-10-16 16:50] VITALS: BP 145/105; PULSE 103; RESP 17; TEMP 36.9; O2SAT 99; BMI 24.0
--- NOTE | 2022-10-16 17:05 | XRR_ITS ---
PROCEDURE INFORMATION: Exam: XR Left Finger(s) Exam date and time: 10/16/2022 5:55 PM Age: 37 years old Clinical indication: Injury or trauma; Other: Laceration; Finger; Left; Thumb; Additional info: Thumb laceration TECHNIQUE: Imaging protocol: Radiologic exam of the left fingers. Views: Minimum 2 views. COMPARISON: No relevant prior studies available. FINDINGS: Bones/joints: Osseous structures are intact. Negative for fracture. Joint spaces are preserved. Soft tissues: Wound noted at the thumb. No radiopaque foreign body. XR/XR finger LT min 2V [id number] IMPRESSION: Wound noted at the thumb. No radiopaque foreign body. No osseous abnormalities.
--- NOTE | 2022-10-16 17:50 | ED_ITS ---
HPI - Wound/Laceration General: Chief Complaint: Wound/Laceration Stated Complaint: left thumb lac Time Seen by Provider: 10/16/22 17:03 History of Present Illness: Patient is in today for a laceration of his thumb. He reports that he was making hack saw handle and cut on his left thumb and it hit the bone. Patient reports that he was unable to manage the bleeding at home which is why he came in. He has reportedly been drinking whiskey today. He reports he is doing well, feeling little pain, and has full movement. He is wondering if this can just be glued as long as the bone is okay. He cannot remember when his last tetanus vaccination was. He knows it has been greater than 5 years. Associated symptoms: Denies chills, fever(s), nausea, syncope or vomiting Review of Systems Const: Denies: fever(s), chills or body aches Eyes: Denies: change in vision or blurry vision Card: Denies: chest pain, palpitations, irregular heart rhythm, lightheadedness or syncope Resp: Denies: dyspnea, productive cough or non-productive cough GI: Denies: abdominal pain, nausea or vomiting : Denies: flank pain, dysuria, urinary frequency, urinary urgency or urinary hesitancy Musc: Denies: neck pain or back pain Skin/Breast: Reports: other (Laceration left thumb from a hack saw) Neuro: Denies: headache(s), numbness in extremities or weakness in extremities PFS ED PFSH: Medical History Acute pancreatitis Alcohol abuse Alcohol intoxication Alcoholism C2 cervical fracture C7 cervical fracture Elevated transaminase level Esophagitis History of suicide attempt L4 vertebral fracture Pancreatitis, alcoholic, acute Polysubstance abuse Pseudocyst of pancreas PTSD (post-traumatic stress disorder) Surgical History History of appendectomy History of splenectomy Family History Other Diabetes Social History Smoking and tobacco status: current every day smoker Alcohol intake: current Alcohol intake frequency: few times a week Physical Exam Const: COMMON NORMALS: no acute distress GENERAL APPEARANCE: cooperative ORIENTATION/CONSCIOUSNESS: Yes awake Neck/C-Spine: COMMON NORMALS: full ROM Resp: COMMON NORMALS: normal respiratory effort, No retractions, No use of accessory muscles and clear to auscultation bilaterally EFFORT & INSPECTION: Yes symmetric chest movement AUSCULTATION: clear to auscultation bilaterally Extremity: NARRATIVE EXTREMITY EXAM: Left dorsal thumb there is an approximate 4 cm laceration between the MIP and the PIP joint. Patient had two-point discrimination, full range of motion of the thumb, clean wound edge. Capillary refill is good to distal thumb. No obvious bony deformity. On initial assessment there was minimal bleeding, but after local lidocaine injection and cleaning the wound it started bleeding again. Suture repair done and bleeding controlled/stopped. Color and movement within normal limits after suture repair. Patient reports good sensation but no sharp pain sensation. Patient continues with full range of motion after suture repair however it puts tension on sutures with flexion. Encouraged him to wear a thumb splint for couple of days to allow the wound to start to heal. Psych: COMMON NORMALS: cooperative Procedures Laceration Left thumb: Site: hand (Thumb) Side (If applicable): left Size (cm): 4 Description: linear Depth: simple, single layer Local Anesthetic: lidocaine 2% Amount of anesthesia used (mL): 3.5 Pre-repair: wound explored, irrigated extensively and deep structures intact Skin layer closed with: nylon Size (cm): 4-0 Number of sutures: 7 Technique: simple, interrupted Course Vital Signs: Vital signs: Vital Signs Temperature 98.5 F 10/16/22 16:50 Pulse Rate 98 10/16/22 18:34 Respiratory Rate 18 10/16/22 18:34 Blood Pressure 145/105 10/16/22 16:50 Pulse Oximetry 100 10/16/22 18:34 Oxygen Delivery Me thod 10/16/22 16:50 MDM - Wound/Laceration Medical Decision Making Patient is in for thumb laceration from a hack saw. Patient reportedly has been drinking whiskey but is pleasant and cooperative at this time. There is an approximate 4 cm laceration on the dorsal left thumb. Educated patient about various wound closure techniques as patient was asking about glue. I advised him that in this area I do not think glue would be a great option given that it is close to the joint. I recommended suture repair. We discussed possible risk and benefits of suture repair including bleeding, infection, scar formation. Patient verbalizes understanding of these risk and wishes to proceed with suture repair. Local anesthetic was administered wound was irrigated as much as possible but started bleeding heavily during irrigation. Suture repair was done and bleeding was controlled/stopped. Patient tolerated the procedure well. Dressing was applied. Advised patient of aftercare. X-ray thumb shows: Tetanus is updated. Start patient on prophylactic antibiotic given that this was a dirty injury. Advised patient to return to ER in 5 to 7 days for suture removal. Return sooner as needed for new or worsening symptoms or signs of infection. Lab Data Radiology Impressions Finger X-Ray 10/16/22 17:05 IMPRESSION: Wound noted at the thumb. No radiopaque foreign body. No osseous abnormalities. Discharge Plan Discharge Patient Disposition: Home Clinical Impression: Laceration Condition: Stable Prescriptions: New clindamycin HCl 300 mg capsule 300 mg PO TID 7 Days Qty: 21 0RF Rx Instructions: start 10/17/22 No Action folic acid 1 mg Tablet 1 mg PO DAILY Qty: 30 0RF Vitamin B-1 (mononitrate) 100 mg Tablet 100 mg PO DAILY Qty: 30 0RF oxycodone 5 mg tablet 5 mg PO DAILY PRN (Reason: pain) Qty: 10 0RF Discharge Orders: Discharge ED (Routine); Ordered 10/16/22 Ordered By: Avril Norris Referrals: Mahamed Sales MD [Primary Care Provider] - Discharge Diet: Usual diet Discharge Activity: Limit activity as instructed Patient Instructions: Care For Your Stitches (ED) Activity Restrictions/Additional Instructions: Keep wound clean and dry. I recommend wearing the splint for a couple of days to allow the wound to begin healing without the tension of movement and flexion at that joint. Monitor closely for signs of infection. Take antibiotic as prescribed. Your tetanus was updated today. Follow-up in ER in 5 to 7 days for suture removal. Return sooner as needed for new or worsening symptoms or signs of infection including, but not limited to, increased pain, increased redness, oozing or drainage from the wound, fever. Coding Level of Care Code ED Numerical Control Nesting Operator for Marko Avery
[2022-10-16] MEDS: tetanus-dipt-pertussis 0.5 mL SDV IM (18:04)
[2022-10-16] MEDS: clindamycin 150 mg Capsule 300 MG PO (18:21)
[2022-10-16 18:34] VITALS: PULSE 98; RESP 18; O2SAT 100
== END 2022-10-16 18:35 | disposition home or self-care (01) ==
PROVIDERS: Emergency Provider Nurse Practitioner Family; PCP Family Medicine
DX: S61.012A Laceration without foreign body of left thumb without damage to nail, initial encounter (principal); W27.0XXA Contact with workbench tool, initial encounter; F17.210 Nicotine dependence, cigarettes, uncomplicated; Z23 Encounter for immunization
CPT/HCPCS: 12002; 73140; 90471; 90715; 99283

== ENCOUNTER 2023-01-09 14:10 | Inpatient (IN) | payer MEDICAID, SELFPAY ==
[2023-01-09] VITALS (11 sets, daily range): BP systolic 134–167; BP diastolic 85–116; PULSE 60–98; RESP 10–20; TEMP 36.5–36.6; O2SAT 93–99; BMI 25.1
--- NOTE | 2023-01-09 16:33 | ECG_ITS ---
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 Measurements Intervals [place] Rate: 104 P: 64 GA: 136 QRS: 68 QRSD: 99 T: 42 QT: 353 QTc: 466 Interpretive Statements SINUS TACHYCARDIA MINIMAL ST DEPRESSION [0.025+ mV ST DEPRESSION] Compared to ECG 09/07/2022 07:00:05 ST (T wave) deviation now present Sinus rhythm no longer present Sinus arrhythmia no longer present Electronically Signed On 01-09-2023 17:03:54 CDT by Jamal Godwin M.D. [email or web address]
--- NOTE | 2023-01-09 17:04 | ED_ITS ---
Documented by User: Isael Noble DO 01/10/23 05:28 HPI - Chest Pain General: Chief Complaint: Chest Pain Stated Complaint: chest pain Time Seen by Provider: 01/09/23 16:46 Source: patient Mode of arrival: ambulatory History of Present Illness: 37-year-old male presents emergency room with complaint of epigastric abdominal pain described as radiating bilaterally into the lower part of his chest. He denies any medication on hematemesis coffee-ground emesis discomfort with deep inspiration but no real short of breath. He has not seen thing exacerbates or relieves it. On further discussion patient admits to drinking 1/5 of hard liquor per day. When he was eating this morning he suddenly began to have abdominal discomfort and vomited x1. This persisted throughout the day. MD complaint: chest pain Onset (ago): minute(s) Timing of current episode: episodic Onset: during rest Pain location: left chest, right chest and epigastric Severity: severe Quality: sharp Relieving factors: nothing Exacerbating factors: nothing Associated symptoms: Reports abdominal pain; Deny diaphoresis, dyspnea, fever(s), leg edema, nausea, palpitations, sense of impending doom, syncope or vomiting Review of Systems Const: Denies: fever(s), chills, fatigue, malaise or diaphoresis ENMT: Denies: throat pain, ear or mastoid pain, nasal discharge or nasal congestion Card: Reports: chest pain; Denies: palpitations or syncope Resp: Denies: dyspnea GI: Reports: abdominal pain; Denies: nausea or vomiting : Denies: flank pain, dysuria, urinary frequency or urinary urgency Skin/Breast: Denies: rash or pruritus PFS ED PFSH: Medical History Acute pancreatitis Alcohol abuse Alcohol intoxication Alcoholism C2 cervical fracture C7 cervical fracture Elevated transaminase level Esophagitis History of suicide attempt L4 vertebral fracture Pancreatitis, alcoholic, acute Polysubstance abuse Pseudocyst of pancreas PTSD (post-traumatic stress disorder) Surgical History History of appendectomy History of splenectomy Family History Other Diabetes Social History (Updated 01/09/23 @ 17:18 by RISA Beckham Smoking and tobacco status: current every day smoker Alcohol intake: current Alcohol intake frequency: 3 or more drinks per day Alcohol type: hard liquor Alcohol use comment: Fifth of hard liquor daily Substance/Drug Use: current Substance/Drug use frequency: daily Physical Exam Const: GENERAL APPEARANCE: cooperative and comfortable ORIENTATION/CONSCIOUSNESS: Yes awake, Yes oriented to person, Yes oriented to place and Yes oriented to time HENMT: COMMON NORMALS: normocephalic, atraumatic and hearing grossly normal bilaterally HEAD & SCALP: normocephalic and atraumatic Resp: COMMON NORMALS: normal respiratory effort, No retractions, No use of accessory muscles and clear to auscultation bilaterally AUSCULTATION: clear to auscultation bilaterally Cardio: COMMON NORMALS: regular rate, regular rhythm and No murmurs present (Cardio) RATE: regular rate RHYTHM: regular rhythm GI: COMMON NORMALS: No hepatosplenomegaly present AUSCULTATION: Yes normoactive bowel sounds PALPATION: Yes Tenderness to palpation present (GI), No Guarding due to palpation present (GI) and Yes No hepatosplenomegaly present Extremity: COMMON NORMALS: normal to inspection, capillary refill normal, no c lubbing, cyanosis or edema, no calf tenderness and no pedal edema Neuro: SENSORIUM/ORIENTATION: Yes oriented to person, Yes oriented to place and Yes oriented to time Skin: COMMON NORMALS: no rashes or lesions noted GENERAL SKIN EXAM: no rashes or lesions noted Course Vital Signs: Vital signs: Vital Signs Temperature 97.6 F 01/10/23 03:15 Pulse Rate 67 01/10/23 04:25 Respiratory Rate 16 01/10/23 03:52 Blood Pressure 152/90 01/10/23 03:15 Pulse Oximetry 93 01/10/23 03:15 Oxygen Delivery Me thod Room Air 01/10/23 03:15 MDM - Chest Pain Medical Decision Making Care signed out to Dr. Feliciano at change of shift. See final notes for diagnosis and disposition. Patient presents here with abdominal pain he does have pancreatitis seen on CT he is continue to have pain here after multiple pain meds spoke to hospitalist will admit for pain control. Medical Records I reviewed the patient's medical records. Lab Data I reviewed the patient's lab results. 01/09/23 17:24 06/09/23 17:52 Radiology Impressions Abdomen/Pelvis CT 01/09/23 17:38 IMPRESSION: 1. Acute pancreatitis, as described above. Correlate with serum amylase and lipase levels. No necrosis or hemorrhage. 2. 4.6 x 4.4 cm cystic lesion in the pancreatic body, similar to prior and likely a pseudocyst. 3. Additional findings, as above. COMMENTS: Consistent with the [employer] [employer]'s Incidental Findings Committee white paper (J Am Ruth Radiol 2018): Any incidental renal lesion less than 1 cm or classified as too small to characterize, or any incidental cystic renal lesion characterized as simple-appearing, is likely benign. No follow-up imaging is recommended for these lesions per consensus recommendations based on imaging criteria. Laboratory Results WBC 11.2 10^3/uL (4.0-10.0) H 01/09/23 17:24 RBC 4.60 10^6/uL (4.1-5.3) 01/09/23 17:24 Hgb 15.8 g/dL (11.7-16.6) 01/09/23 17:24 Hct 45.5 % (42.0-52.0) 01/09/23 17:24 MCV 98.9 fl (80-94) H 01/09/23 17:24 MCH 34.3 pg (28.0-34.0) H 01/09/23 17:24 MCHC 34.7 g/dL (30.0-36.0) 01/09/23 17:24 RDW 14.6 % (12.1-15.1) 01/09/23 17:24 Plt Count 239 10^3/cmm (130-400) 01/09/23 17:24 MPV 9.5 fL (7.4-10.4) 01/09/23 17:24 Neut % (Auto) 52.7 % 01/09/23 17:24 Lymph % (Auto) 37.6 % 01/09/23 17:24 [place] % (Auto) 7.2 % 01/09/23 17:24 Eos % (Auto) 1.2 % 01/09/23 17:24 Baso % (Auto) 0.8 % 01/09/23 17:24 Neut # (Auto) 5.92 10^3/uL (1.8-7.7) 01/09/23 17:24 Lymph # (Auto) 4.2 10^3/uL (0.8-4.8) 01/09/23 17:24 [place] # (Auto) 0.8 10^3/uL (0.2-0.9) 01/09/23 17:24 Eos # (Auto) 0.1 10^3/uL (0.0-0.8) 01/09/23 17:24 Baso # (Auto) 0.1 10^3/uL (0.0-0.1) 01/09/23 17:24 Nucleated RBC % (auto) 0 % 01/09/23 17:24 Nucleated RBCs # 0.0 /100WBC 01/09/23 17:24 Sodium 143 mmol/L (136-145) 01/09/23 17:52 Potassium 3.4 mmol/L (3.5-5.1) L 01/09/23 17:52 Chloride 102 mmol/L (98-107) 01/09/23 17:52 Carbon Dioxide 25 mmol/L (22-29) 01/09/23 17:52 Anion Gap 19.4 (5-19) H 01/09/23 17:52 BUN 6 mg/dL (6-20) 01/09/23 17:52 Creatinine 0.7 mg/dL (0.7-1.2) 01/09/23 17:52 GFR Calculation 127.6 mL/min (90-130) 01/09/23 17:52 Glucose 102 mg/dL (65-115) 01/09/23 17:52 Calculated Osmolality 294 mOsm/kg (285-295) 01/09/23 17:52 Lactic Acid 2.1 mmol/L (0.5-2.2) 01/09/23 17:24 Calcium 8.2 mg/dL (8.5-10.5) L 01/09/23 17:52 Phosphorus 2.5 mg/dL (2.5-4.5) 01/09/23 17:53 Magnesium 1.8 mg/dL (1.7-2.3) 01/09/23 17:53 Total Bilirubin 0.4 mg/dL (0.15-1.2) 01/09/23 17:52 AST 151 U/L (0-40) H 01/09/23 17:52 ALT 194 U/L (0-41) H 01/09/23 17:52 Alkaline Phosphatase 163 U/L (40-130) H 01/09/23 17:52 Troponin T Baseline 6 ng/L (0-15) 01/09/23 17:52 Troponin T 120 Minute 8.10 ng/L (0-15) 01/09/23 18:59 Delta Troponin T 2.10 ABS# (0-10) 01/09/23 18:59 Total Protein 7.0 g/dL (6.6-8.7) 01/09/23 17:52 Albumin 4.4 g/dL (3.5-5.2) 01/09/23 17:52 Globulin 2.6 g/dL (1.3-4.6) 01/09/23 17:52 Triglycerides 125 mg/dL (0-150) 01/09/23 17:53 Cholesterol 190 mg/dL (0-200) 01/09/23 17:53 LDL Cholesterol, Calc 99 mg/dL (50-129) 01/09/23 17:53 HDL Cholesterol 66 mg/dL (60-100) 01/09/23 17:53 LDL/HDL Ratio 1.50 RATIO (0.00-3.22) 01/09/23 17:53 Cholesterol/HDL Ratio 2.88 mg/dL (1.0-5.00) 01/09/23 17:53 Lipase 246 U/L (13-60) H 01/09/23 17:24 TSH 1.49 uIU/mL (0.27-4.20) 01/09/23 17:53 Urine Color Yellow (Yellow) 01/09/23 18:14 Urine Appearance Clear (CLEAR) 01/09/23 18:14 Urine pH 8 (5-7) H 01/09/23 18:14 Ur Specific [place] 1.010 (1.005-1.030) 01/09/23 18:14 Urine Protein Trace (Negative) 01/09/23 18:14 Urine Glucose (UA) Norm (Normal) 01/09/23 18:14 Urine Ketones Negative (Negative) 01/09/23 18:14 Urine Blood Trace (Negative) H 01/09/23 18:14 Urine Nitrate Negative (Negative) 01/09/23 18:14 Urine Bilirubin Neg (Negative) 01/09/23 18:14 Prot Sulfosalicylic Acd Negative (Negative) 01/09/23 18:14 Urine Urobilinogen Norm mg/dL (Negative) 01/09/23 18:14 Ur Leukocyte Esterase Negative (Negative) 01/09/23 18:14 Urine RBC 0-4 /hpf (0-2) H 01/09/23 18:14 Urine WBC 0-4 /hpf (0-5) H 01/09/23 18:14 Ur Squamous Epith Cells 0-4 /hpf (0-5) H 01/09/23 18:14 Amorphous Sediment Not Reportable 01/09/23 18:14 Urine Bacteria Trace /hpf (NONE) 01/09/23 18:14 Urine Opiates Screen Positive ng/mL (Negative) H 01/09/23 18:14 Ur Barbiturates Screen Negative ng/mL (Negative) 01/09/23 18:14 Ur Phencyclidine Scrn Negative ng/mL (Negative) 01/09/23 18:14 Ur Amphetamines Screen Negative ng/mL (Negative) 01/09/23 18:14 U Benzodiazepines Scrn Negative ng/mL (Negative) 01/09/23 18:14 Urine Cocaine Screen Negative ng/mL (Negative) 01/09/23 18:14 U Marijuana (THC) Screen Positive ng/mL (Negative) H 01/09/23 18:14 Ethyl Alcohol 342 mg/dL (0-10) H* 01/09/23 17:24 Discharge Plan Discharge Patient Disposition: Admitted As Inpatient Admit Provider: Anni Fleming Clinical Impression: Acute pancreatitis, Alcohol intoxication Condition: Stable Coding Level of Care Code ED Academic Services Professional for Chg Fwd Documented by User: Hannah Feliciano MD 01/09/23 19:17 HPI - Chest Pain General: Chief Complaint: Chest Pain Stated Complaint: chest pain Time Seen by Provider: 01/09/23 16:46 History of Present Illness: . PFSH ED PFSH: Medical History Acute pancreatitis Alcohol abuse Alcohol intoxication Alcoholism C2 cervical fracture C7 cervical fracture Elevated transaminase level Esophagitis History of suicide attempt L4 vertebral fracture Pancreatitis, alcoholic, acute Polysubstance abuse Pseudocyst of pancreas PTSD (post-traumatic stress disorder) Surgical History History of appendectomy History of splenectomy Family History Other Diabetes Social History (Updated 01/09/23 @ 17:18 by Isael Noble DO) Smoking and tobacco status: current every day smoker Alcohol intake: current Alcohol intake frequency: 3 or more drinks per day Alcohol type: hard liquor Alcohol use comment: Fifth of hard liquor daily Substance/Drug Use: current Substance/Drug use frequency: daily Course Vital Signs: Vital signs: Vital Signs Temperature 97.6 F 01/10/23 03:15 Pulse Rate 67 01/10/23 04:25 Respiratory Rate 16 01/10/23 03:52 Blood Pressure 152/90 01/10/23 03:15 Pulse Oximetry 93 01/10/23 03:15 Oxygen Delivery Me thod Room Air 01/10/23 03:15 MDM - Chest Pain Medical Decision Making Patient presents here with abdominal pain he does have pancreatitis seen on CT he is continue to have pain here after multiple pain meds spoke to hospitalist will admit for pain control. Lab Data 01/09/23 17:24 01/09/23 17:52 Radiology Impressions Abdomen/Pelvis CT 01/09/23 17:38 IMPRESSION: 1. Acute pancreatitis, as described above. Correlate with serum amylase and lipase levels. No necrosis or hemorrhage. 2. 4.6 x 4.4 cm cystic lesion in the pancreatic body, similar to prior and likely a pseudocyst. 3. Additional findings, as above. COMMENTS: Consistent with the [place] [employer]'s Incidental Findings Committee white paper (J Am Ruth Radiol 2018): Any incidental renal lesion less than 1 cm or classified as too small to characterize, or any incidental cystic renal lesion characterized as simple-appearing, is likely benign. No follow-up imaging is recommended for these lesions per consensus recommendations based on imaging criteria. Laboratory Results WBC 11.2 10^3/uL (4.0-10.0) H 01/09/23 17:24 RBC 4.60 10^6/uL (4.1-5.3) 01/09/23 17:24 Hgb 15.8 g/dL (11.7-16.6) 01/09/23 17:24 Hct 45.5 % (42.0-52.0) 01/09/23 17:24 MCV 98.9 fl (80-94) H 01/09/23 17:24 MCH 34.3 pg (28.0-34.0) H 01/09/23 17:24 MCHC 34.7 g/dL (30.0-36.0) 01/09/23 17:24 RDW 14.6 % (12.1-15.1) 01/09/23 17:24 Plt Count 239 10^3/cmm (130-400) 01/09/23 17:24 MPV 9.5 fL (7.4-10.4) 01/09/23 17:24 Neut % (Auto) 52.7 % 01/09/23 17:24 Lymph % (Auto) 37.6 % 01/09/23 17:24 [place] % (Auto) 7.2 % 01/09/23 17:24 Eos % (Auto) 1.2 % 01/09/23 17:24 Baso % (Auto) 0.8 % 01/09/23:24 Neut # (Auto) 5.92 10^3/uL (1.8-7.7) 01/09/23 17:24 Lymph # (Auto) 4.2 10^3/uL (0.8-4.8) 01/09/23 17:24 [place] # (Auto) 0.8 10^3/uL (0.2-0.9) 01/09/23 17:24 Eos # (Auto) 0.1 10^3/uL (0.0-0.8) 01/09/23 17:24 Baso # (Auto) 0.1 10^3/uL (0.0-0.1) 01/09/23 17:24 Nucleated RBC % (auto) 0 % 01/09/23 17:24 Nucleated RBCs # 0.0 /100WBC 01/09/23 17:24 Sodium 143 mmol/L (136-145) 01/09/23 17:52 Potassium 3.4 mmol/L (3.5-5.1) L 01/09/23 17:52 Chloride 102 mmol/L (98-107) 01/09/23 17:52 Carbon Dioxide 25 mmol/L (22-29) 01/09/23 17:52 Anion Gap 19.4 (5-19) H 01/09/23 17:52 BUN 6 mg/dL (6-20) 01/09/23 17:52 Creatinine 0.7 mg/dL (0.7-1.2) 01/09/23 17:52 GFR Calculation 127.6 mL/min (90-130) 01/09/23 17:52 Glucose 102 mg/dL (65-115) 01/09/23 17:52 Calculated Osmolality 294 mOsm/kg (285-295) 01/09/23 17:52 Lactic Acid 2.1 mmol/L (0.5-2.2) 01/09/23 17:24 Calcium 8.2 mg/dL (8.5-10.5) L 01/09/23 17:52 Phosphorus 2.5 mg/dL (2.5-4.5) 01/09/23 17:53 Magnesium 1.8 mg/dL (1.7-2.3) 01/09/23 17:53 Total Bilirubin 0.4 mg/dL (0.15-1.2) 01/09/23 17:52 AST 151 U/L (0-40) H 01/09/23 17:52 ALT 194 U/L (0-41) H 01/09/23 17:52 Alkaline Phosphatase 163 U/L (40-130) H 01/09/23 17:52 Troponin T Baseline 6 ng/L (0-15) 01/09/23 17:52 Troponin T 120 Minute 8.10 ng/L (0-15) 01/09/23 18:59 Delta Troponin T 2.10 ABS# (0-10) 01/09/23 18:59 Total Protein 7.0 g/dL (6.6-8.7) 01/09/23 17:52 Albumin 4.4 g/dL (3.5-5.2) 01/09/23 17:52 Globulin 2.6 g/dL (1.3-4.6) 01/09/23 17:52 Triglycerides 125 mg/dL (0-150) 01/09/23 17:53 Cholesterol 190 mg/dL (0-200) 01/09/23 17:53 LDL Cholesterol, Calc 99 mg/dL (50-129) 01/09/23 17:53 HDL Cholesterol 66 mg/dL (60-100) 01/09/23 17:53 LDL/HDL Ratio 1.50 RATIO (0.00-3.22) 01/09/23 17:53 Cholesterol/HDL Ratio 2.88 mg/dL (1.0-5.00) 01/09/23 17:53 Lipase 246 U/L (13-60) H 01/09/23 17:24 TSH 1.49 uIU/mL (0.27-4.20) 01/09/23 17:53 Urine Color Yellow (Yellow) 01/09/23 18:14 Urine Appearance Clear (CLEAR) 01/09/23 18:14 Urine pH 8 (5-7) H 01/09/23 18:14 Ur Specific [place] 1.010 (1.005-1.030) 01/09/23 18:14 Urine Protein Trace (Negative) 01/09/23 18:14 Urine Glucose (UA) Norm (Normal) 01/09/23 18:14 Urine Ketones Negative (Negative) 01/09/23 18:14 Urine Blood Trace (Negative) H 01/09/23 18:14 Urine Nitrate Negative (Negative) 01/09/23 18:14 Urine Bilirubin Neg (Negative) 01/09/23 18:14 Prot Sulfosalicylic Acd Negative (Negative) 01/09/23 18:14 Urine Urobilinogen Norm mg/dL (Negative) 01/09/23 18:14 Ur Leukocyte Esterase Negative (Negative) 01/09/23 18:14 Urine RBC 0-4 /hpf (0-2) H 01/09/23 18:14 Urine WBC 0-4 /hpf (0-5) H 01/09/23 18:14 Ur Squamous Epith Cells 0-4 /hpf (0-5) H 01/09/23 18:14 Amorphous Sediment Not Reportable 01/09/23 18:14 Urine Bacteria Trace /hpf (NONE) 01/09/23 18:14 Urine Opiates Screen Positive ng/mL (Negative) H 01/09/23 18:14 Ur Barbiturates Screen Negative ng/mL (Negative) 01/09/23 18:14 Ur Phencyclidine Scrn Negative ng/mL (Negative) 01/09/23 18:14 Ur Amphetamines Screen Negative ng/mL (Negative) 01/09/23 18:14 U Benzodiazepines Scrn Negative ng/mL (Negative) 01/09/23 18:14 Urine Cocaine Screen Negative ng/mL (Negative) 01/09/23 18:14 U Marijuana (THC) Screen Positive ng/mL (Negative) H 01/09/23 18:14 Ethyl Alcohol 342 mg/dL (0-10) H* 01/09/23 17:24 Discharge Plan Discharge Patient Disposition: Admitted As Inpatient Admit Provider: Anni Fleming Clinical Impression: Acute pancreatitis, Alcohol intoxication Condition: Stable Coding Level of Care Code ED Academic Services Professional for Marko Avery
--- NOTE | 2023-01-09 17:38 | CTR_ITS ---
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 Axial, coronal and sagittal reformatted images were created and reviewed. Radiation optimization: All CT scans at this facility use at least one of these dose optimization techniques: automated exposure control; mA and/or kV adjustment per patient size (includes targeted exams where dose is matched to clinical indication); or iterative reconstruction. Contrast material: OMNI 350; Contrast volume: 100 ml; Contrast route: INTRAVENOUS (IV); REPORTING DATA: Count of CT and Cardiac NM exams in prior 12 months: This patient has received 2 known CTs and 0 known cardiac nuclear medicine studies in the 12 months prior to the current study. COMPARISON: CT abdomen pelvis wo con [id number] 09/07/2022 8:47 AM RADIATION DOSE METRICS: Total DLP (mGy-cm): 467.24 FINDINGS: Liver: Mild hepatomegaly. Diffuse hepatic steatosis. Gallbladder and bile ducts: No radiodense gallstones. No biliary ductal dilatation. Pancreas: Moderate peripancreatic stranding and edema, predominantly about the head, neck and uncinate process. 4.6 x 4.4 cm cystic lesion in the pancreatic body, similar to prior and likely a pseudocyst. Mild atrophy of the pancreatic body and tail with associated ductal dilatation. Spleen: Status post splenectomy. Adrenal glands: Normal. No mass. Kidneys and ureters: 6 mm low-density left renal lesion, too small to characterize. No radiodense calculi. No hydronephrosis. Stomach and bowel: No bowel wall thickening. No obstruction. No pneumatosis. Appendix: Status post appendectomy. Intraperitoneal space: No free fluid. No organized fluid collection. No free air. Vasculature: Unremarkable. No aneurysm. Lymph nodes: Small mesenteric lymph nodes, likely reactive. No pathologically enlarged lymph nodes. Urinary bladder: Unremarkable as visualized. Reproductive: Unremarkable. Bones/joints: No acute osseous abnormality. Mild degenerative changes. Soft tissues: Small, fat containing inguinal hernias. CT/CT abdomen pelvis w con* [id number] IMPRESSION: 1. Acute pancreatitis, as described above. Correlate with serum amylase and lipase levels. No necrosis or hemorrhage. 2. 4.6 x 4.4 cm cystic lesion in the pancreatic body, similar to prior and likely a pseudocyst. 3. Additional findings, as above. COMMENTS: Consistent with the [place] [employer]'s Incidental Findings Committee white paper (J Am Ruth Radiol 2018): Any incidental renal lesion less than 1 cm or classified as too small to characterize, or any incidental cystic renal lesion characterized as simple-appearing, is likely benign. No follow-up imaging is recommended for these lesions per consensus recommendations based on imaging criteria.
[2023-01-09] MEDS: iohexol 350 mg/mL 500 mL Btl (per mL) IV (17:41)
[2023-01-09] MEDS: famotidine 20 mg/2 mL INJ 40 MG IVP (17:46)
[2023-01-09] MEDS: morphine 4 mg/mL SDV 1 mL IVP ×2 (17:47→19:12)
[2023-01-09] MEDS: ondansetron 2 mg/ML SDV 2 mL 4 MG IVP (17:47)
[2023-01-09 17:48] LABS: Lipase 246 U/L (13-60); Magnesium 1.8 mg/dL (1.7-2.3)
[2023-01-09 17:52] LABS: Alcohol Level 342 mg/dL (0-10)
[2023-01-09 18:06] LABS: Basophils # 0.1 10^3/uL (0.0-0.1); Basophils % 0.8 %; Eosinophils # 0.1 10^3/uL (0.0-0.8); Eosinophils % 1.2 %; Hematocrit 45.5 % (42.0-52.0); Hemoglobin 15.8 g/dL (11.7-16.6); Lymphocytes # 4.2 10^3/uL (0.8-4.8); Lymphocytes % 37.6 %; Mean Corpuscular HGB Conc 34.7 g/dL (30.0-36.0); Mean Corpuscular Hemoglobin 34.3 pg (28.0-34.0); Mean Corpuscular Volume 98.9 fl (80-94); Mean Platelet Volume 9.5 fL (7.4-10.4); Monocytes # 0.8 10^3/uL (0.2-0.9); Monocytes % 7.2 %; Neutrophils # 5.92 10^3/uL (1.8-7.7); Neutrophils % 52.7 %; Nucleated Red Blood Cells % 0 %; Platelet Count 239 10^3/cmm (130-400); Red Cell Distribution Width 14.6 % (12.1-15.1); White Blood Count 11.2 10^3/uL (4.0-10.0)
[2023-01-09] MEDS: sodium chloride 0.9% 1,000 ML 999 ML IV ×2 (18:06→19:10)
--- NOTE | 2023-01-09 18:17 | ECG_ITS ---
[facility] Test Date: 2023-01-09 Pat Name: Elena Hernandez Department: Room: Gender: Male Regulated Program Manager: : 1985 Requested By: Isael Flores Order Number: [id number] Boni MD: Jamal Godwin M.D. Measurements Intervals [place] Rate: 63 P: 61 NV: 150 QRS: 73 QRSD: 99 T: 55 QT: 410 QTc: 420 Interpretive Statements SINUS RHYTHM Compared to ECG 01/09/2023 14:25:24 Sinus tachycardia no longer present ST (T wave) deviation no longer present Electronically Signed On 01-09-2023 18:31:22 CDT by Jamal Godwin M.D. [id number]
[2023-01-09 18:18] LABS: Troponin(5th) Baseline 6 ng/L (0-15)
[2023-01-09 18:19] LABS: Alanine Aminotransferase 194 U/L (0-41); Albumin Level 4.4 g/dL (3.5-5.2); Alkaline Phosphatase 163 U/L (40-130); Anion Gap 19.4 (5-19); Aspartate Amino Transferase 151 U/L (0-40); Blood Urea Nitrogen 6 mg/dL (6-20); Calcium 8.2 mg/dL (8.5-10.5); Carbon Dioxide 25 mmol/L (22-29); Chloride 102 mmol/L (98-107); Globulin 2.6 g/dL (1.3-4.6); Glomerular Filtration Rate 127.6 mL/min (90-130); Glucose 102 mg/dL (65-115); Osmolality Calculated 294 mOsm/kg (285-295); Potassium 3.4 mmol/L (3.5-5.1); Sodium 143 mmol/L (136-145); Total Bilirubin 0.4 mg/dL (0.15-1.2)
[2023-01-09 18:36] LABS: Add Urine Microscopic? YES; Bilirubin Urine Neg (Negative); Blood Urine Trace (Negative); Glucose Urine UA Norm (Normal); Ketones Urine Negative (Negative); Leukocyte Esterase Urine Negative (Negative); Nitrate Urine Negative (Negative); Protein Urine Trace (Negative); Sulfosalicylic Acid Urine Negative (Negative); Urine Appearance Clear (CLEAR); Urine Color Yellow (Yellow); Urobilinogen Urine Norm (Negative); pH Urine 8 (5-7)
[2023-01-09 18:37] LABS: Bacteria Urine TRACE /hpf; RBC Urine 0-4 /hpf (0-2); Squamous Epithelial Cell Urine 0-4 /hpf (0-5); WBC Urine 0-4 /hpf (0-5)
--- NOTE | 2023-01-09 19:21 | P.HP_ITS ---
Providers/Chief Complaint Primary Care Provider: Mahamed Sales MD Chief Complaint: chest pain History of Present Illness Elena Hernandez is a 37 year old male With past medical history of alcohol abuse, pancreatitis, esophagitis, polysubstance abuse, pancreatic pseudocyst presented to the hospital today for complaint of right-sided chest pain and epigastric pain. He stated the pain is sharp and severe. Denies shortness of breath, fever, nausea, vomiting, diarrhea or passing out at this time. Denies any urinary complaints. Drinks 3 or more drinks per day hard liquor. He is also a current everyday smoker. He states that he abdominal earlier today and right after he ate [employer] it triggered his epigastric pain. CT abdomen pelvis was obtained which showed acute pancreatitis 4.6 x 4.4 cm cystic lesion in pancreati c body similar to prior likely a pseudocyst. WBC 11.2, hemoglobin 15.8, platelet 239, sodium 143, potassium 3.4, creatinine 0.7, AST 151, ALT 194, baseline troponin 6. Urinalysis grossly negative. Alcohol level 342. On arrival blood pressure 151/116, history 16, pulse 72, temperature 97.8, satur ating 97% on room air. Reviewed chart. Patient had a admission for acute pancreatitis back in September 2022 for similar complaint. Lipase is 246 today. Medications/Allergies Home Medications Medication Instructions Recorded Confirmed Last Taken Type No Known Home Medications 01/09/23 01/09/23 Unknown History Allergies Allergy/AdvReac Type Severity Reaction Status Date / Time No Known Allergies Allergy Verified 07/29/22 14:48 PFSH Acute 2 PFSH: Medical History Acute pancreatitis Alcohol abuse Alcohol intoxication Alcoholism C2 cervical fracture C7 cervical fracture Elevated transaminase level Esophagitis History of suicide attempt L4 vertebral fracture Pancreatitis, alcoholic, acute Polysubstance abuse Pseudocyst of pancreas PTSD (post-traumatic stress disorder) Surgical History History of appendectomy History of splenectomy Family History Other Diabetes Social History (Updated 01/09/23 @ 17:18 by Isael Noble DO) Smoking and tobacco status: current every day smoker Alcohol intake: current Alcohol intake frequency: 3 or more drinks per day Alcohol type: hard liquor Alcohol use comment: Fifth of hard liquor daily Substance/Drug Use: current Substance/Drug use frequency: daily Vitals/I&O/Wt Last Vital Signs Temp 97.8 F 01/09/23 14:27 Pulse 72 01/09/23 19:13 Resp 16 01/09/23 19:13 BP 151/116 01/09/23 19:13 Pulse Ox 97 01/09/23 19:13 O2 Del Method Room Air 01/09/23 19:13 01/09/23 01/09/23 01/09/23 06:59 14:59 22:59 Intake Total 1000 / 1000 Balance 1000 / 1000 Weight last 48 hrs Weight 81.647 kg Physical Exam Narrative: General: Alert oriented x3, patient seen laying in bed. No acute respiratory distress. HEENT: Normocephalic, atraumatic, EOMI, breathing room air. Cardio: Regular rate rhythm, normal S1-S2 Respiratory: Clear to auscultation bilaterally GI: Abdomen soft, mildly tender in epigastric area and right upper quadrant area, bowel sounds +, no apparent guarding present. Extremities: No edema. Data 01/09/23 17:24 01/09/23 17:52 A&P Assessment and plan (1) Acute pancreatitis: (2) Alcohol intoxication: (3) Dehydration: (4) Chest pain: (5) Alcohol intoxication: Plan #Acute pancreatitis #History of pseudocyst #Alcohol intoxication #Alcohol abuse #History of polysubstance abuse -Patient currently with acute pancreatitis in a background of recurrent chronic pancreatitis. -N.p.o. except for sips and chips. -IV fluid normal saline at 150 cc an hour. -CT shows: 1. ? Acute pancreatitis, as described above. Correlate with serum amylase and lipase levels. No necrosis or hemorrhage. 2. ? 4.6 x 4.4 cm cystic lesion in the pancreatic body, similar to prior and likely a pseudocyst. -Overall stable likely pseudocyst as noted on CT abdomen. -Pain control with morphine alternating with dilaudid -Monitor for improvement with IV fluids, supportive management. -Etiology likelgy likely to be alcohol abuse. -Will check lipid profile, TG - Will place on [facility] protocol - Start on thiamine folic acid daily - Monitor electrolytes - Check magnesium level Full Code SCDS, Heparin subc BID Attestations Medical Necessity Statement*: > 2 midnight stay for managenent of acute pancreatisis. Coding Level of Care Code G0425 (30 min) TH Encounter Time (min): 40 Patient seen via Telehealth in the acute care setting (hospital or ED location) by agreement and consent of patient or patient home office representative. Telehealth technology used during the visit includes video and audio. This patient encounter is appropriate and reasonable under the circumstances given the patient?s particular presentation at this time. The patient has been advised of the potential risks and limitations of this mode of treatment (including but not limited to the absence of in-person examination at this time) and has agreed to be treated by an off-site physician for this visit. If deemed clinically necessary from this telehealth visit, or if condition or consent for telehealth visit changes, an in-person visit will be arranged. For this encounter, total time for the origination of telehealth care on this date is as shown. Diagnoses Acute pancreatitis K85.90 Alcohol intoxication F10.929 Dehydration E86.0 Chest pain R07.9
--- NOTE | 2023-01-09 19:53 | ECG_ITS ---
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 Measurements Intervals [place] Rate: 60 P: 67 AR: 151 QRS: 79 QRSD: 97 T: 68 QT: 406 QTc: 409 Interpretive Statements SINUS RHYTHM Compared to ECG 01/09/2023 18:17:32 No significant changes Electronically Signed On 01-09-2023 22:05:23 CDT by Jamal Godwin M.D. [email or web address] [email or web address] heights medical [id number]
[2023-01-09 19:56] LABS: Amphetamines Screen Urine Negative (Negative); Barbiturates Screen Urine Negative (Negative); Benzodiazepines Screen Urine Negative (Negative); Cocaine Screen Urine Negative (Negative); Opiate Screen Urine Positive (Negative); PCP Screen Urine Negative (Negative); THC Screen Urine Positive (Negative)
[2023-01-09] MEDS: pantoprazole 40 mg SDV IVP (19:58)
[2023-01-09] MEDS: heparin 5,000 unit/mL INJ 1 mL 5000 UNIT SUBCUT (20:03)
[2023-01-09 20:29] LABS: Lactic Sepsis W/Reflex 2.1 mmol/L (0.5-2.2)
[2023-01-09 20:39] LABS: Chol HDL Ratio 2.88 mg/dL (1.0-5.00); Cholesterol 190 mg/dL (0-200); HDL Cholesterol 66 mg/dL (60-100); LDL Cholesterol Calculated 99 mg/dL (50-129); Magnesium 1.8 mg/dL (1.7-2.3); Phosphorus 2.5 mg/dL (2.5-4.5); Thyroid Stimulating Hormone 1.49 uIU/mL (0.27-4.20); Triglycerides 125 mg/dL (0-150)
[2023-01-09] MEDS: sodium chloride 0.9% 1,000 ML 150 ML IV (21:31)
[2023-01-09] MEDS: morphine 4 mg/mL SDV 1 mL 2 MG IVP (21:32)
[2023-01-09 21:42] LABS: Reflex Lactate Order REFLEX LACTIC ORDERD
[2023-01-09 22:48] LABS: Lactic Acid level (Lactate) 1.7 mmol/L (0.5-2.2)
--- NOTE | 2023-01-09 23:08 | PC.NURSE ---
Patient is rating pain 9/10 with no relief from Morphine. Dr. Fleming notified.
[2023-01-09 23:10] LABS: Troponin 5 6HR Delta -2.1 ng/L (0-12)
[2023-01-09] MEDS: HYDROmorphone 1 mg/mL INJ 1 mL 0.5 MG IVP (23:52)
[2023-01-10] VITALS (17 sets, daily range): BP systolic 136–160; BP diastolic 76–104; PULSE 67–79; RESP 14–18; TEMP 36.4–37; O2SAT 18–99
[2023-01-10] MEDS: morphine 4 mg/mL SDV 1 mL 1 MG IVP ×3 (01:55→10:12)
[2023-01-10] MEDS: HYDROmorphone 1 mg/mL INJ 1 mL 0.5 MG IVP ×3 (03:52→15:29)
[2023-01-10] MEDS: sodium chloride 0.9% 1,000 ML 150 ML IV ×4 (03:53→22:33)
[2023-01-10 05:34] LABS: Basophils # 0.1 10^3/uL (0.0-0.1); Basophils % 0.7 %; Eosinophils # 0.2 10^3/uL (0.0-0.8); Eosinophils % 1.7 %; Hematocrit 42.8 % (42.0-52.0); Hemoglobin 14.3 g/dL (11.7-16.6); Lymphocytes # 3.8 10^3/uL (0.8-4.8); Lymphocytes % 33.4 %; Mean Corpuscular HGB Conc 33.4 g/dL (30.0-36.0); Mean Corpuscular Hemoglobin 33.5 pg (28.0-34.0); Mean Corpuscular Volume 100.2 fl (80-94); Mean Platelet Volume 9.7 fL (7.4-10.4); Monocytes % 8.4 %; Neutrophils # 6.29 10^3/uL (1.8-7.7); Neutrophils % 55.4 %; Nucleated Red Blood Cells % 0 %; Platelet Count 205 10^3/cmm (130-400); Red Blood Count 4.27 10^6/uL (4.1-5.3); Red Cell Distribution Width 14.6 % (12.1-15.1); White Blood Count 11.3 10^3/uL (4.0-10.0)
[2023-01-10 05:57] LABS: Alanine Aminotransferase 142 U/L (0-41); Albumin Level 3.5 g/dL (3.5-5.2); Alkaline Phosphatase 160 U/L (40-130); Blood Urea Nitrogen 5 mg/dL (6-20); Calcium 7.4 mg/dL (8.5-10.5); Carbon Dioxide 23 mmol/L (22-29); Chloride 104 mmol/L (98-107); Globulin 2.3 g/dL (1.3-4.6); Glomerular Filtration Rate 188.1 mL/min (90-130); Glucose 72 mg/dL (65-115); Magnesium 1.4 mg/dL (1.7-2.3); Osmolality Calculated 286 mOsm/kg (285-295); Phosphorus 3.2 mg/dL (2.5-4.5); Sodium 140 mmol/L (136-145); Total Bilirubin 0.5 mg/dL (0.15-1.2); Total Protein 5.8 g/dL (6.6-8.7)
[2023-01-10 05:58] LABS: Anion Gap 16.8 (5-19); Aspartate Amino Transferase 92 U/L (0-40); Potassium 3.8 mmol/L (3.5-5.1)
--- NOTE | 2023-01-10 06:09 | PC.NURSE ---
Patient is currently resting in bed with eyes closed and does not appear to be in discomfort. Will continue to monitor and assess pain. Will assess pain again via 1-10 scale when patient is awake.
[2023-01-10] MEDS: thiamine 100 mg Tablet PO (08:24)
[2023-01-10] MEDS: folic acid 1 mg Tablet PO (08:24)
[2023-01-10] MEDS: multivitamin therapeutic Tablet 1 TAB PO (08:24)
[2023-01-10] MEDS: heparin 5,000 unit/mL INJ 1 mL 5000 UNIT SUBCUT ×2 (08:24→19:14)
[2023-01-10] MEDS: oxyCODONE-APAP 5-325 mg Tablet 1 TAB PO ×3 (12:26→22:33)
--- NOTE | 2023-01-10 17:03 | P.PN_ITS ---
Subjective Medications: Medication Review Details: Generic Name Dose Route Start Last Admin Trade Name Simoneq PRN Reason Stop Dose Admin Folic Acid 1 mg 01/10/23 09:00 01/10/23 08:24 Folic Acid 1 Mg Tablet PO 1 mg DAILY ZAHRA Administration Heparin Sodium (Po rcine) 5,000 unit 01/09/23 19:30 01/10/23 08:24 Heparin 5,000 Un it/Ml Inj 1 Ml SUBCUT 5,000 unit Q12H ZAHRA Administration Hydromorphone HCl 0.5 mg 01/09/23 23:37 01/10/23 15:29 Hydromorphone 1 Mg/Ml Inj 1 Ml IVP 0.5 mg Q4H PRN Administration PAIN Sodium Chloride 1,000 mls @ 150 m ls/hr 01/09/23 19:30 01/10/23 10:42 Sodium Chloride 0.9% IV 150 mls/hr .Q6H40M ZAHRA Administration Folic Acid 1 mg/ N /A 0.2 mls @ 0 mls/h r 01/09/23 20:00 01/10/23 09:08 IV Infused DAILY ZAHRA Infusion Morphine Sulfate 1 mg 01/09/23 23:42 01/10/23 10:12 Morphine 4 Mg/Ml Sdv 1 Ml IVP 1 mg Q2H PRN Administration SEVERE PAIN Multivitamins Ther apeutic 1 tab 01/10/23 09:00 01/10/23 08:24 Multivitamin The rapeutic Tablet PO 1 tab DAILY ZAHRA Administration Oxycodone/Acetamin ophen 1 tab 01/10/23 11:43 01/10/23 12:26 Oxycodone-Apap 5 -325 Mg Tablet PO 1 tab Q4H PRN Administration MODERATE PAIN Pantoprazole Sodiu m 40 mg 01/09/23 19:30 01/09/23 19:58 Pantoprazole 40 Mg Sdv IVP 40 mg Q24H ZAHRA Administration Thiamine HCl 100 mg 01/09/23 19:35 01/10/23 08:24 Thiamine 100 Mg/ Ml Sdv IVP 100 mg DAILY ZAHRA Administration Thiamine Mononitra te 100 mg 01/10/23 09:00 01/10/23 08:24 Thiamine 100 Mg Tablet PO 100 mg DAILY ZAHRA Administration Vitals/I&O/Wt Last Vital Signs Temp 98.5 F 01/10/23 15:17 Pulse 70 01/10/23 15:17 Resp 18 01/10/23 15:29 BP 155/103 01/10/23 15:17 Pulse Ox 18 L 01/10/23 15:29 O2 Del Method Room Air 01/10/23 15:17 01/10/23 01/10/23 01/10/23 06:59 14:59 22:59 Intake Total 955 / 3075.200 1480.2 / 1480.2 Output Total 650 / 650 800 / 800 Balance 305 / 2425.200 680.2 / 680.2 Weight last 48 hrs Weight 81.647 kg Physical Exam Const: COMMON NORMALS: patient oriented x3 HENMT: COMMON NORMALS: normocephalic and atraumatic HEAD & SCALP: normocephalic and atraumatic Resp: COMMON NORMALS: clear to auscultation bilaterally AUSCULTATION: clear to auscultation bilaterally Cardio: COMMON NORMALS: regular rate, regular rhythm, S1 normal heart sound present, S2 normal heart sound present and Peripheral pulses 2+ throughout RATE: regular rate RHYTHM: regular rhythm HEART SOUNDS: S1 normal heart sound present and S2 normal heart sound present PERIPHERAL PULSES: Peripheral pulses 2+ throughout GI: COMMON NORMALS: Normal to inspection, nondistended, normoactive bowel sounds present, Soft to palpation, non-tender, No hepatosplenomegaly present and no masses AUSCULTATION: Yes normoactive bowel sounds PALPATION: Yes Soft to palpation and Yes No hepatosplenomegaly present RECTAL EXAM: Yes deferred Extremity: COMMON NORMALS: no clubbing, cyanosis or edema and no pedal edema Neuro: COMMON NORMALS: patient oriented x3 Data 01/10/23 04:33 01/10/23 04:33 A&P Assessment and plan (1) Acute pancreatitis: (2) Alcohol intoxication: (3) Dehydration: (4) Chest pain: (5) Transaminitis: (6) Hepatomegaly: (7) Hypomagnesemia: Plan 37 year old male With PMH of alcohol abuse, pancreatitis, esophagitis, polysubstance abuse, pancreatic pseudocyst came in with chief complaint of right-sided chest pain as well as epigastric abdominal pain. Currently he is being managed for: Acute Pancreatitis CT abdomen and pelvis with contrast has shown: Features consistent with acute pancreatitis.It has also shown 4.6 x 4.4 cm cystic lesion in the pancreatic body, similar to prior and likely a pseudocyst. Lipase is 246. Initially was kept n.p.o., currently has been started on clear liquid diets Currently on morphine as well as Dilaudid, started on p.o. Percocet Continue IV hydration History of alcohol abuse disorder: Monitor CIWA Monitor electrolytes Continue thiamine folic acid Transaminitis: Possibly secondary to alcohol abuse disorder CT abdomen and pelvis: Has shown Liver: Mild hepatomegaly. Diffuse hepatic steatosis.Gallbladder and bile ducts: No radiodense gallstones. No biliary ductal dilatation. Monitor CMP Chest pain: Likely MSK Troponin trend is unremarkable EKG has not shown any acute ST-T wave changes Full Code SCDS, Heparin subc BID Attestations Medical Necessity Statement*: Needs to be in hospital for management of acute pancreatitis, need for pain control IV hydration. Coding Level of Care Code Acute Code for [facility] Diagnoses Acute pancreatitis K85.90 Alcohol intoxication F10.929 Dehydration E86.0 Chest pain R07.9 Transaminitis R74.01 Hepatomegaly R16.0 Hypomagnesemia E83.42
[2023-01-10] MEDS: magnesium sulfate premix 2 GM/50 ML PIGGYBACK IV (18:25)
[2023-01-10] MEDS: pantoprazole 40 mg SDV IVP (19:14)
[2023-01-10] MEDS: LORazepam 2 mg/mL INJ 1 mL 1 MG IVP (23:30)
[2023-01-11 02:23] VITALS: RESP 16
[2023-01-11] MEDS: oxyCODONE-APAP 5-325 mg Tablet 1 TAB PO ×2 (02:23→06:14)
[2023-01-11 04:00] VITALS: BP 134/89; PULSE 64; RESP 16; TEMP 36.7; O2SAT 97
[2023-01-11 06:14] VITALS: RESP 16
[2023-01-11 08:23] VITALS: BP 146/103; PULSE 74; RESP 16; TEMP 36.8; O2SAT 98
[2023-01-11] MEDS: multivitamin therapeutic Tablet 1 TAB PO (08:58)
[2023-01-11] MEDS: thiamine 100 mg Tablet PO (08:58)
[2023-01-11] MEDS: folic acid 1 mg Tablet PO (08:58)
[2023-01-11 10:42] VITALS: BP 146/103; PULSE 74; RESP 16; TEMP 36.8; O2SAT 98
--- NOTE | 2023-01-11 10:42 | PC.NURSE ---
IV removed intact. Patient tolerated well. Patient is A&Ox3. Respirations even and non-labored on room air. Discharge instructions reviewed with patient and significant other. Patient verbalized understanding of discharge instructions including medications and follow up appointment. Patient states that he has a follow up appointment with [facility] tomorrow morning at 8:30 am. Patient ambulated to private car.
--- NOTE | 2023-01-11 12:14 | PM.DCS ---
Discharge Providers Date of Admission: 01/09/23 20:21 Date of Discharge: January 11, 2023 Attending Provider at Admission: Anni Flemnig MD Attending Provider at Discharge: Kvng Ryan MD Primary Care Provider: Mahamed Sales MD Diagnoses at Discharge Discharge Diagnosis (1) Acute pancreatitis: Status: Acute (2) Alcohol intoxication: Status: Acute (3) Dehydration: Status: Resolved (4) Chest pain: Status: Inactive (5) Transaminitis: Status: Acute (6) Hepatomegaly: Status: Acute (7) Hypomagnesemia: Status: Acute Reason for Visit Reason for Visit: chest pain Hospital Course Hospital Course 37 year old male With PMH of alcohol abuse, pancreatitis, esophagitis, polysubstance abuse, pancreatic pseudocyst came in with chief complaint of right-sided chest pain as well as epigastric abdominal pain, He was admitted for the management of acute pancreatitis, possibly secondary to alcohol abuse,CT abdomen and pelvis with contrast has shown: Features consistent with acute pancreatitis.It has also shown?4.6 x 4.4 cm cystic lesion in the pancreatic body, similar to prior and likely a pseudocyst. Lipase is 246. Initially was kept n.p.o. pain control, IV hydration, was later started on clear liquid diet, then advanced to regular diet which he tolerated well, at the time of discharge his abdominal pain has resolved, denies any nausea vomiting, during the hospital stay he was also managed for, alcohol abuse disorder CIWA was monitored, he was on thiamine folic acid electrolytes were monitored and corrected, He was also managed for transaminitis possibly secondary to alcohol abuse disorder:CT abdomen and pelvis: Has shown?Liver: Mild hepatomegaly. Diffuse hepatic steatosis.Gallbladder and bile ducts: No radiodense gallstones. No biliary ductal dilatation. CMP was monitored, chest pain was likely MSK, troponins were negative EKG failed to show any acute ST-T wave change.Overall patient responded well to above medical management and was discharged in stable condition to home.He will continue to follow with his PCP as outpatient. Physical Exam Const: COMMON NORMALS: patient oriented x3 HENMT: COMMON NORMALS: normocephalic and atraumatic HEAD & SCALP: normocephalic and atraumatic Resp: COMMON NORMALS: clear to auscultation bilaterally AUSCULTATION: clear to auscultation bilaterally Cardio: COMMON NORMALS: regular rate, regular rhythm, S1 normal heart sound present, S2 normal heart sound present and Peripheral pulses 2+ throughout RATE: regular rate RHYTHM: regular rhythm HEART SOUNDS: S1 normal heart sound present and S2 normal heart sound present PERIPHERAL PULSES: Peripheral pulses 2+ throughout GI: COMMON NORMALS: Normal to inspection, nondistended, normoactive bowel sounds present, Soft to palpation, non-tender, No hepatosplenomegaly present and no masses AUSCULTATION: Yes normoactive bowel sounds PALPATION: Yes Soft to palpation and Yes No hepatosplenomegaly present RECTAL EXAM: Yes deferred Extremity: COMMON NORMALS: no clubbing, cyanosis or edema and no pedal edema Neuro: COMMON NORMALS: patient oriented x3 Discharge Data Studies Completed and Pending Completed Studies During Hospitalization Category Date Time Status CT abdomen pelvis w con* [id number] Stat Cat Scan 01/09/23 17:38 Completed Radiology Impressions Abdomen/Pelvis CT 01/09/23 17:38 IMPRESSION: 1. Acute pancreatitis, as described above. Correlate with serum amylase and lipase levels. No necrosis or hemorrhage. 2. 4.6 x 4.4 cm cystic lesion in the pancreatic body, similar to prior and likely a pseudocyst. 3. Additional findings, as above. COMMENTS: Consistent with the [employer]'s Incidental Findings Committee white paper (J Am Ruth Radiol 2018): Any incidental renal lesion less than 1 cm or classified as too small to characterize, or any incidental cystic renal lesion characterized as simple-appearing, is likely benign. No follow-up imaging is recommended for these lesions per consensus recommendations based on imaging criteria. Laboratory Results WBC 11.3 10^3/uL (4.0-10.0) H 01/10/23 04:33 RBC 4.27 10^6/uL (4.1-5.3) 01/10/23 04:33 Hgb 14.3 g/dL (11.7-16.6) 01/10/23 04:33 Hct 42.8 % (42.0-52.0) 01/10/23 04:33 MCV 100.2 fl (80-94) H 01/10/23 04:33 MCH 33.5 pg (28.0-34.0) 01/10/23 04:33 MCHC 33.4 g/dL (30.0-36.0) 01/10/23 04:33 RDW 14.6 % (12.1-15.1) 01/10/23 04:33 Plt Count 205 10^3/cmm (130-400) 01/10/23 04:33 MPV 9.7 fL (7.4-10.4) 01/10/23 04:33 Neut % (Auto) 55.4 % 01/10/23 04:33 Lymph % (Auto) 33.4 % 01/10/23 04:33 [place]unders % (Auto) 8.4 % 01/10/23 04:33 Eos % (Auto) 1.7 % 01/10/23 04:33 Baso % (Auto) 0.7 % 01/10/23 04:33 Neut # (Auto) 6.29 10^3/uL (1.8-7.7) 01/10/23 04:33 Lymph # (Auto) 3.8 10^3/uL (0.8-4.8) 01/10/23 04:33 Saunders # (Auto) 1.0 10^3/uL (0.2-0.9) H 01/10/23 04:33 Eos # (Auto) 0.2 10^3/uL (0.0-0.8) 01/10/23 04:33 Baso # (Auto) 0.1 10^3/uL (0.0-0.1) 01/10/23 04:33 Nucleated RBC % (auto) 0 % 01/10/23 04:33 Nucleated RBCs # 0.0 /100WBC 01/10/23 04:33 Sodium 140 mmol/L (136-145) 01/10/23 04:33 Potassium 3.8 mmol/L (3.5-5.1) 01/10/23 04:33 Chloride 104 mmol/L (98-107) 01/10/23 04:33 Carbon Dioxide 23 mmol/L (22-29) 01/10/23 04:33 Anion Gap 16.8 (5-19) 01/10/23 04:33 BUN 5 mg/dL (6-20) L 01/10/23 04:33 Creatinine 0.5 mg/dL (0.7-1.2) L 01/10/23 04:33 GFR Calculation 188.1 mL/min (90-130) H 01/10/23 04:33 Glucose 72 mg/dL (65-115) 01/10/23 04:33 Calculated Osmolality 286 mOsm/kg (285-295) 01/10/23 04:33 Lactic Acid 2.1 mmol/L (0.5-2.2) 01/09/23 17:24 Lactic Acid (Sepsis) 1.7 mmol/L (0.5-2.2) 01/09/23 22:23 Calcium 7.4 mg/dL (8.5-10.5) L 01/10/23 04:33 Phosphorus 3.2 mg/dL (2.5-4.5) 01/10/23 04:33 Magnesium 1.4 mg/dL (1.7-2.3) L 01/10/23 04:33 Total Bilirubin 0.5 mg/dL (0.15-1.2) 01/10/23 04:33 AST 92 U/L (0-40) H 01/10/23 04:33 ALT 142 U/L (0-41) H 01/10/23 04:33 Alkaline Phosphatase 160 U/L (40-130) H 01/10/23 04:33 Troponin T Baseline 6 ng/L (0-15) 01/09/23 17:52 Troponin T 120 Minute 8.10 ng/L (0-15) 01/09/23 18:59 Delta Troponin T 2.10 ABS# (0-10) 01/09/23 18:59 Troponin T Hi Sens 6Hr 6.00 ng/L (0-15) 01/09/23 22:23 Troponin T Hi Sens 6Hr Delta -2.1 ng/L (0-12) L 01/09/23 22:23 Total Protein 5.8 g/dL (6.6-8.7) L 01/10/23 04:33 Albumin 3.5 g/dL (3.5-5.2) 01/10/23 04:33 Globulin 2.3 g/dL (1.3-4.6) 01/10/23 04:33 Triglycerides 125 mg/dL (0-150) 01/09/23 17:53 Cholesterol 190 mg/dL (0-200) 01/09/23 17:53 LDL Cholesterol, Calc 99 mg/dL (50-129) 01/09/23 17:53 HDL Cholesterol 66 mg/dL (60-100) 01/09/23 17:53 LDL/HDL Ratio 1.50 RATIO (0.00-3.22) 01/09/23 17:53 Cholesterol/HDL Ratio 2.88 mg/dL (1.0-5.00) 01/09/23 17:53 Lipase 246 U/L (13-60) H 01/09/23 17:24 TSH 1.49 uIU/mL (0.27-4.20) 01/09/23 17:53 Urine Color Yellow (Yellow) 01/09/23 18:14 Urine Appearance Clear (CLEAR) 01/09/23 18:14 Urine pH 8 (5-7) H 01/09/23 18:14 Ur Specific [place] 1.010 (1.005-1.030) 01/09/23 18:14 Urine Protein Trace (Negative) 01/09/23 18:14 Urine Glucose (UA) Norm (Normal) 01/09/23 18:14 Urine Ketones Negative (Negative) 01/09/23 18:14 Urine Blood Trace (Negative) H 01/09/23 18:14 Urine Nitrate Negative (Negative) 01/09/23 18:14 Urine Bilirubin Neg (Negative) 01/09/23 18:14 Prot Sulfosalicylic Acd Negative (Negative) 01/09/23 18:14 Urine Urobilinogen Norm mg/dL (Negative) 01/09/23 18:14 Ur Leukocyte Esterase Negative (Negative) 01/09/23 18:14 Urine RBC 0-4 /hpf (0-2) H 01/09/23 18:14 Urine WBC 0-4 /hpf (0-5) H 01/09/23 18:14 Ur Squamous Epith Cells 0-4 /hpf (0-5) H 01/09/23 18:14 Amorphous Sediment Not Reportable 01/09/23 18:14 Urine Bacteria Trace /hpf (NONE) 01/09/23 18:14 Urine Opiates Screen Positive ng/mL (Negative) H 01/09/23 18:14 Ur Barbiturates Screen Negative ng/mL (Negative) 01/09/23 18:14 Ur Phencyclidine Scrn Negative ng/mL (Negative) 01/09/23 18:14 Ur Amphetamines Screen Negative ng/mL (Negative) 01/09/23 18:14 U Benzodiazepines Scrn Negative ng/mL (Negative) 01/09/23 18:14 Urine Cocaine Screen Negative ng/mL (Negative) 01/09/23 18:14 U Marijuana (THC) Screen Positive ng/mL (Negative) H 01/09/23 18:14 Ethyl Alcohol 342 mg/dL (0-10) H* 01/09/23 17:24 Vitals Last Vital Signs Temp 98.2 F 01/11/23 10:42 Pulse 74 01/11/23 10:42 Resp 16 01/11/23 10:42 BP 146/103 01/11/23 10:42 Pulse Ox 98 01/11/23 10:42 O2 Del Method Room Air 01/11/23 08:23 Discharge Plan Discharge Patient Disposition: Home Condition: Stable Prescriptions: New folic acid 1 mg Tablet 1 mg PO DAILY 30 Days Qty: 30 3RF Vitamin B-1 (mononitrate) 100 mg Tablet 100 mg PO DAILY 30 Days Qty: 30 3RF Thera 400 mcg Tablet 1 tab PO DAILY 30 Days Qty: 30 3RF Acetaminophen Extra Strength 500 mg tablet 500 mg PO Q6H PRN (Reason: pain) Qty: 30 0RF Discharge Orders: Discharge Order (Routine); Ordered 01/11/23 Ordered By: Kvng Ryan Referrals: Mahamed Sales MD [Primary Care Provider] - 1 week (Call and make a follow up appointment with your provider this week. Patient states that he has appointment tomorrow Thursday at 8:30 am.) Patient Instructions: Acetaminophen (By mouth), Thiamine (By mouth), Folic Acid (By mouth), Vitamin D (By mouth), Pancreatitis (DC), Opioid Safety Discharge Attestations Time Spent in Discharge Care*: less than 30 min Status at Discharge: Cognitive status at discharge: cognitively intact, Behavioral status at discharge: cooperative, Quality Metrics Clinical Quality Measures [ No reported AMI, CVA or VTE this stay] Coding Level of Care Code Acute Code for [facility] Fwd Diagnoses Acute pancreatitis K85.90 Alcohol intoxication F10.929 Dehydration E86.0 Chest pain R07.9 Transaminitis R74.01 Hepatomegaly R16.0 Hypomagnesemia E83.42
== END 2023-01-11 10:42 | disposition home or self-care (01) | DRG 439 ==
LOC: ER 19:18 → MEDSURG 20:21
PROVIDERS: Family Medicine; Admitting Provider Internal Medicine; Emergency Provider Emergency Medicine; PCP Family Medicine; Visit Provider Internal Medicine
DX: K85.20 Alcohol induced acute pancreatitis without necrosis or infection (principal); K86.3 Pseudocyst of pancreas; F10.120 Alcohol abuse with intoxication, uncomplicated; Y90.8 Blood alcohol level of 240 mg/100 ml or more; E86.0 Dehydration; F17.210 Nicotine dependence, cigarettes, uncomplicated; F43.10 Post-traumatic stress disorder, unspecified; F19.10 Other psychoactive substance abuse, uncomplicated; E83.42 Hypomagnesemia
CPT/HCPCS: 36415; 74177; 80053; 80061; 80306; 80307; 81001; 83605; 83690; 83735; 84100; 84443; 84484; 85025; 93005; 96361; 96372; 96374; 96375; 96376; 99285; C9113; J1170; J1644; J2060; J2270; J2405; J3411; J3475; J3490; J7030; Q9967

== ENCOUNTER 2023-03-01 13:55 | Observation (INO) | payer MEDICAID, SELFPAY ==
[2023-03-01] VITALS (10 sets, daily range): BP systolic 160–187; BP diastolic 78–123; PULSE 51–97; RESP 16–18; TEMP 36.4–36.5; O2SAT 92–99; BMI 24.4
--- NOTE | 2023-03-01 14:07 | ECG_ITS ---
[facility] Test Date: 2023-03-01 Pat Name: Elena Hernandez Department: Room: Gender: Male [employer]: : 1985 Requested By: Christopher Hutton Order Number: [id number] Boni MD: Jamal Godwin M.D. Measurements Intervals [place] Rate: 85 P: 54 TX: 155 QRS: 60 QRSD: 91 T: 31 QT: 382 QTc: 456 Interpretive Statements SINUS RHYTHM Compared to ECG 01/09/2023 19:52:11 No significant changes Electronically Signed On 03-02-2023 8:31:13 CDT by Jamal Godwin M.D. [id number]
--- NOTE | 2023-03-01 14:57 | W.ED.CHESTPA ---
HPI - Chest Pain General: Chief Complaint: Chest Pain Stated Complaint: severe chest pain Time Seen by Provider: 03/01/23 14:27 History of Present Illness: Ms. Hernandez is a 37-year-old gentleman with history of pancreatitis presenting to the emergency department for epigastric and chest pain. Notes onset of symptoms perhaps starting yesterday with generalized malaise however overnight significantly worsened and this morning was even worse. Substernal pain with diaphoresis. Occasional radiation to bilateral arms. Burning and stabbing. Feels worse than prior episodes of pancreatitis. No other specific changes in health, exacerbating, or alleviating factors identified. Onset (ago): day(s) Timing of current episode: increasing Onset: during rest Quality: burning and other Review of Systems General: Reports: 10 or more systems reviewed and unremarkable except in HPI and below PFSH ED PFSH: Medical History Acute pancreatitis Acute pancreatitis Alcohol abuse Alcohol intoxication Alcohol intoxication Alcoholism C2 cervical fracture C7 cervical fracture Elevated transaminase level Esophagitis Hepatomegaly History of suicide attempt Hypomagnesemia L4 vertebral fracture Pancreatitis, alcoholic, acute Polysubstance abuse Pseudocyst of pancreas Psychiatric care PTSD (post-traumatic stress disorder) Tobacco use Transaminitis Surgical History History of appendectomy History of splenectomy Family History Other Diabetes Social History Smoking and tobacco status: current every day smoker Alcohol intake: current Alcohol intake frequency: 3 or more drinks per day Alcohol type: hard liquor Substance/Drug Use: current Substance/Drug use frequency: daily Physical Exam Const: COMMON NORMALS: alert GENERAL APPEARANCE: cooperative and well developed HENMT: COMMON NORMALS: normocephalic and atraumatic HEAD & SCALP: normocephalic and atraumatic THROAT: posterior oropharynx normal Eye: COMMON NORMALS: conjunctivae normal CONJUNCTIVA: Yes conjunctivae normal SCLERA: sclerae normal Neck/C-Spine: COMMON NORMALS: supple GENERAL: Yes trachea midline Resp: COMMON NORMALS: normal respiratory effort and clear to auscultation bilaterally EFFORT & INSPECTION: Yes able to speak in complete sentences AUSCULTATION: clear to auscultation bilaterally Cardio: COMMON NORMALS: regular rate and regular rhythm RATE: regular rate RHYTHM: regular rhythm GI: COMMON NORMALS: Soft to palpation PALPATION: Yes Soft to palpation, Yes Tenderness to palpation present (GI), Yes Guarding due to palpation present (GI) (Voluntary) and No Rigid due to palpation Extremity: GENERAL: Yes normal exam except as noted and No edema Neuro: COMMON NORMALS: moves all extremities SENSORIUM/ORIENTATION: Yes alert and No Orientation impaired Psych: COMMON NORMALS: mental status grossly normal and Normal thought process present THOUGHT PROCESS: Normal thought process present Course Vital Signs: Vital signs: Vital Signs Temperature 97.8 F 03/03/23 15:38 Pulse Rate 75 03/03/23 15:38 Respiratory Rate 16 03/03/23 15:38 Blood Pressure 151/101 03/03/23 15:38 Pulse Oximetry 99 03/03/23 15:38 Oxygen Delivery Me thod Room Air 03/03/23 11:17 MDM - Chest Pain Medical Decision Making 37-year-old gentleman presenting with epigastric and chest pain. Does have a history of pancreatitis. Somewhat ill however nontoxic in appearance. Epigastric tenderness to palpation and voluntary guarding without evidence of acute surgical abdomen. EKG demonstrates sinus rhythm with normal axis and intervals, bradycardia present, no STEMI. Labs with no leukocytosis, hemoconcentration present. Mild dehydration on metabolic panel. Transaminitis and alk phos similar to baseline. Lipase is elevated. Chest x-ray with no lobar consolidation or pneumothorax. Ultrasound negative for cholecystitis or clear evidence of choledocholithiasis. Low clinical suspicion despite poor visualization. Patient treated with antiemetic, fluids, analgesia. Despite multiple rounds of treatment patient only has mild transient relief and therefore requires inpatient management. The results of ED evaluation were discussed with the patient including plan for admission due to requirement for level of care not available if discharged to prevent significant worsening/deterioration. Patient agreeable with plan. Discussed with hospitalist service who was agreeable to admit patient. Medical Records I reviewed the patient's medical records. Lab Data I reviewed the patient's lab results. 03/03/23 05:05 03/03/23 05:05 Radiology Impressions Chest X-Ray 03/01/23 15:09 IMPRESSION: Negative for active cardiopulmonary disease. Gallbladder Ultrasound 03/01/23 16:45 IMPRESSION: 1. Technically limited study. 2. Borderline hepatomegaly with diffuse fatty infiltration. 3. 5.1 cm pancreatic cyst not markedly changed when allowing for differences in technique. Laboratory Results WBC 9.7 10^3/uL (4.0-10.0) 03/01/23 15:33 RBC 4.77 10^6/uL (4.1-5.3) 03/01/23 15:33 Hgb 16.9 g/dL (11.7-16.6) H 03/01/23 15:33 Hct 47.3 % (42.0-52.0) 03/01/23 15:33 MCV 99.2 fl (80-94) H 03/01/23 15:33 MCH 35.4 pg (28.0-34.0) H 03/01/23 15:33 MCHC 35.7 g/dL (30.0-36.0) 03/01/23 15:33 RDW 13.3 % (12.1-15.1) 03/01/23 15:33 Plt Count 286 10^3/cmm (130-400) 03/01/23 15:33 MPV 9.1 fL (7.4-10.4) 03/01/23 15:33 Neut % (Auto) 54.5 % 03/01/23 15:33 Lymph % (Auto) 33.4 % 03/01/23 15:33 Stephens % (Auto) 9.7 % 03/01/23 15:33 Eos % (Auto) 0.9 % 03/01/23 15:33 Baso % (Auto) 0.9 % 03/01/23 15:33 Neut # (Auto) 5.27 10^3/uL (1.8-7.7) 03/01/23 15:33 Lymph # (Auto) 3.2 10^3/uL (0.8-4.8) 03/01/23 15:33 Stephens # (Auto) 0.9 10^3/uL (0.2-0.9) 03/01/23 15:33 Eos # (Auto) 0.1 10^3/uL (0.0-0.8) 03/01/23 15:33 Baso # (Auto) 0.1 10^3/uL (0.0-0.1) 03/01/23 15:33 Nucleated RBC % (auto) 0 % 03/01/23 15:33 Nucleated RBCs # 0.0 /100WBC 03/01/23 15:33 ESR < 1 mm/hr (0-10) 03/01/23 15:33 Sodium 138 mmol/L (136-145) 03/01/23 15:33 Potassium 3.5 mmol/L (3.5-5.1) 03/01/23 15:33 Chloride 97 mmol/L (98-107) L 03/01/23 15:33 Carbon Dioxide 27 mmol/L (22-29) 03/01/23 15:33 Anion Gap 17.5 (5-19) 03/01/23 15:33 BUN 4 mg/dL (6-20) L 03/01/23 15:33 Creatinine 0.7 mg/dL (0.7-1.2) 03/01/23 15:33 GFR Calculation 127.6 mL/min (90-130) 03/01/23 15:33 Glucose 110 mg/dL (65-115) 03/01/23 15:33 Calculated Osmolality 284 mOsm/kg (285-295) L 03/01/23 15:33 Lactic Acid 1.4 mmol/L (0.5-2.2) 03/01/23 15:33 Calcium 8.9 mg/dL (8.5-10.5) 03/01/23 15:33 Total Bilirubin 0.9 mg/dL (0.15-1.2) 03/01/23 15:33 AST 87 U/L (0-40) H 03/01/23 15:33 ALT 121 U/L (0-41) H 03/01/23 15:33 Alkaline Phosphatase 194 U/L (40-130) H 03/01/23 15:33 Troponin T Baseline 6 ng/L (0-15) 03/01/23 15:33 Troponin T 120 Minute 6.00 ng/L (0-15) 03/01/23 17:27 Delta Troponin T 0 ABS# (0-10) 03/01/23 17:27 C-Reactive Protein 3.0 mg/L (0.0-4.9) 03/01/23 15:33 Total Protein 6.8 g/dL (6.6-8.7) 03/01/23 15:33 Albumin 3.9 g/dL (3.5-5.2) 03/01/23 15:33 Globulin 2.9 g/dL (1.3-4.6) 03/01/23 15:33 Lipase 151 U/L (13-60) H 03/01/23 15:33 Discharge Plan Discharge Patient Disposition: Placed in Observation Admit Provider: Carrillo Camacho Clinical Impression: Acute pancreatitis Coding Level of Care Code ED Fruit 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
--- NOTE | 2023-03-01 15:09 | XRR_ITS ---
PROCEDURE INFORMATION: Exam: XR Chest Exam date and time: 03/01/2023 3:24 PM Age: 37 years old Clinical indication: Pain; Chest pressure; Additional info: Cp TECHNIQUE: Imaging protocol: Radiologic exam of the chest. Views: 1 view. COMPARISON: CR (CHEST, ) 09/06/2022 10:15 PM FINDINGS: Lungs: Unremarkable. No consolidation. Pleural spaces: Unremarkable. No pleural effusion. No pneumothorax. Heart/Mediastinum: Unremarkable. No cardiomegaly. Bones/joints: Internally fixed fracture right clavicle unchanged. No acute bony abnormalities. XR/XR chest 1V portable [id number] IMPRESSION: Negative for active cardiopulmonary disease.
--- NOTE | 2023-03-01 15:10 | ECG_ITS ---
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 Measurements Intervals [place] Rate: 59 P: 47 NV: 153 QRS: 43 QRSD: 91 T: 33 QT: 430 QTc: 429 Interpretive Statements SINUS BRADYCARDIA Compared to ECG 03/01/2023 14:07:07 Sinus rhythm no longer present Electronically Signed On 03-02-2023 8:30:47 CDT by Jamal Godwin M.D. [id number]
[2023-03-01] MEDS: morphine 4 mg/mL SDV 1 mL IVP ×2 (15:41→17:44)
[2023-03-01] MEDS: ondansetron 2 mg/ML SDV 2 mL 4 MG IVP (15:41)
[2023-03-01] MEDS: lactated ringers 1,000 ML 999 ML IV (15:41)
[2023-03-01 16:02] LABS: Basophils # 0.1 10^3/uL (0.0-0.1); Basophils % 0.9 %; Eosinophils # 0.1 10^3/uL (0.0-0.8); Eosinophils % 0.9 %; Hematocrit 47.3 % (42.0-52.0); Hemoglobin 16.9 g/dL (11.7-16.6); Lymphocytes # 3.2 10^3/uL (0.8-4.8); Lymphocytes % 33.4 %; Mean Corpuscular HGB Conc 35.7 g/dL (30.0-36.0); Mean Corpuscular Hemoglobin 35.4 pg (28.0-34.0); Mean Corpuscular Volume 99.2 fl (80-94); Mean Platelet Volume 9.1 fL (7.4-10.4); Monocytes # 0.9 10^3/uL (0.2-0.9); Monocytes % 9.7 %; Neutrophils # 5.27 10^3/uL (1.8-7.7); Neutrophils % 54.5 %; Nucleated Red Blood Cells % 0 %; Platelet Count 286 10^3/cmm (130-400); Red Blood Count 4.77 10^6/uL (4.1-5.3); Red Cell Distribution Width 13.3 % (12.1-15.1); White Blood Count 9.7 10^3/uL (4.0-10.0)
[2023-03-01 16:30] LABS: Troponin(5th) Baseline 6 ng/L (0-15)
[2023-03-01 16:33] LABS: Lactic Sepsis W/Reflex 1.4 mmol/L (0.5-2.2)
[2023-03-01 16:34] LABS: Alanine Aminotransferase 121 U/L (0-41); Albumin Level 3.9 g/dL (3.5-5.2); Alkaline Phosphatase 194 U/L (40-130); Anion Gap 17.5 (5-19); Aspartate Amino Transferase 87 U/L (0-40); Blood Urea Nitrogen 4 mg/dL (6-20); Calcium 8.9 mg/dL (8.5-10.5); Carbon Dioxide 27 mmol/L (22-29); Chloride 97 mmol/L (98-107); Globulin 2.9 g/dL (1.3-4.6); Glomerular Filtration Rate 127.6 mL/min (90-130); Glucose 110 mg/dL (65-115); Lipase 151 U/L (13-60); Osmolality Calculated 284 mOsm/kg (285-295); Potassium 3.5 mmol/L (3.5-5.1); Sodium 138 mmol/L (136-145); Total Bilirubin 0.9 mg/dL (0.15-1.2); Total Protein 6.8 g/dL (6.6-8.7)
[2023-03-01 16:35] LABS: Erythrocyte Sedimentation Rate < 1 mm/hr (0-10)
--- NOTE | 2023-03-01 16:45 | USR_ITS ---
PROCEDURE INFORMATION: Exam: US Abdomen, Limited; Right Upper Quadrant Exam date and time: 03/01/2023 5:43 PM Age: 37 years old Clinical indication: Abdominal pain; Epigastric; Additional info: Epigastric/upper abd pain, transaminitis TECHNIQUE: Imaging protocol: Real time ultrasound of the abdomen with image documentation. Limited exam focused on the right upper quadrant. COMPARISON: CT abdomen and pelvis performed January 09, 2023 US abdomen limited [id number] 03/26/2017 11:18 PM FINDINGS: Liver: Liver is borderline enlarged and diffusely echogenic in texture likely secondary to fatty infiltration. No masses detected. Gallbladder: Small amount of dependent sludge within the gallbladder otherwise gallbladder is unremarkable. Ultrasonic Hayes sign was not reported by the technologist. Biliary ducts: Bile ducts were not adequately demonstrated for assessment. Pancreas: 5.1 cm anechoic cyst arising from the pancreas which was previously demonstrated on CT examination. Remainder the pancreas is obscured by bowel gas limiting assessment. Right kidney: Right kidney is unremarkable. No masses calculi or hydronephrosis. US/US gall bladder [id number] IMPRESSION: 1. Technically limited study. 2. Borderline hepatomegaly with diffuse fatty infiltration. 3. 5.1 cm pancreatic cyst not markedly changed when allowing for differences in technique.
[2023-03-01] MEDS: aluminum-mag hydrox-simethicon 30 ML, sucralfate oral liq 1 GM PO (17:03)
--- NOTE | 2023-03-01 17:10 | ECG_ITS ---
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 Measurements Intervals [place] Rate: 55 P: 60 OK: 149 QRS: 43 QRSD: 90 T: 38 QT: 428 QTc: 411 Interpretive Statements SINUS BRADYCARDIA Compared to ECG 03/01/2023 15:17:04 No significant changes Electronically Signed On 03-02-2023 8:36:22 CDT by Jamal Godwin M.D. [id number]
[2023-03-01] MEDS: HYDROmorphone 1 mg/mL INJ 1 mL 0.5 MG IVP ×2 (18:21→21:25)
[2023-03-01 18:37] LABS: Troponin 5 2HR Delta 0 ABS# (0-10)
--- NOTE | 2023-03-01 19:29 | PM.HP ---
Providers/Chief Complaint Admitting Physician: Carrillo Camacho MD Primary Care Provider: Mahamed Sales MD Chief Complaint: severe chest pain History of Present Illness Elena Hernandez is a 37 year old male with a past medical history significant for recurrent alcoholic pancreatitis, alcohol use disorder with abuse, and tobacco use disorder who presents to the emergency department with severe epigastric abdominal pain x1 day. Describes as constant with radiation towards back. Oral intake worsens symptoms. Hydromorphone received in the ED improved symptoms. He rates pain 8-9 out of 10. Patient endorses a history of recurrent alcoholic pancreatitis. He states he has been hospitalized around 8 or 9 times with same condition. He reports he continues to drink liquor daily. He states he does not have a desire to quit drinking but notes he has been slowing down some on his drinking. Denies fevers, chill, changes in vision or syncope. Review of Systems Narrative: A complete review of systems was obtained and is negative except as stated in HPI. Medications/Allergies Home Medications Medication Instructions Recorded Confirmed Last Taken Type omeprazole magnesium 10 mg oral 10 mg PO DAILY 02/27/23 03/01/23 03/01/23 History suspension,delayed release (Prilosec) Allergies Allergy/AdvReac Type Severity Reaction Status Date / Time No Known Allergies Allergy Verified 03/01/23 14:08 PFSH Acute PFSH: Medical History (Updated 03/01/23 @ 22:53 by Carrillo Camacho MD) Acute pancreatitis Acute pancreatitis Alcohol abuse Alcohol intoxication Alcohol intoxication Alcoholism C2 cervical fracture C7 cervical fracture Elevated transaminase level Esophagitis Hepatomegaly History of suicide attempt Hypomagnesemia L4 vertebral fracture Pancreatitis, alcoholic, acute Polysubstance abuse Pseudocyst of pancreas PTSD (post-traumatic stress disorder) Tobacco use Transaminitis Surgical History History of appendectomy History of splenectomy Family History Other Diabetes Social History Smoking and tobacco status: current every day smoker Alcohol intake: current Alcohol intake frequency: 3 or more drinks per day Alcohol type: hard liquor Substance/Drug Use: current Substance/Drug use frequency: daily Vitals/I&O/Wt Last Vital Signs Temp 97.6 F 03/01/23 14:08 Pulse 77 03/01/23 18:03 Resp 16 03/01/23 18:03 BP 166/78 03/01/23 18:03 Pulse Ox 92 03/01/23 18:03 O2 Del Method Room Air 03/01/23 18:03 03/01/23 03/01/23 03/01/23 06:59 14:59 22:59 Intake Total 1000 / 1000 Balance 1000 / 1000 Weight last 48 hrs Weight 79.379 kg Physical Exam Narrative: General: Patient is awake. Ill appearing. Head: Scar present. EOM intact. Dry mucous membranes. Neck: No JVD. Cardiovascular: RRR. No gallops. No murmurs. No peripheral edema. Hypertensive. Lungs: Clear to auscultation, no use of accessory muscles, no crackles or wheezes. Skin: No jaundice. No rashes. Abdomen: TTP in epigastric region. Bowel sounds present. Genito Urinary: Genital exam not performed since complaints not related. Rectal: Rectal exam not performed since no symptoms indicated blood loss. Extremities: No cyanosis or clubbing. Musculoskeletal: No swollen or erythematous joints. Neurological: Moves all 4 extremities. No myoclonus. Data 03/01/23 15:33 03/01/23 15:33 A&P Assessment and plan (1) Acute pancreatitis: Recurrent alcoholic pancreatitis w/ transaminitis Imaging reviewed, notable for previously known pancreatic cyst Start IV fluids Clear liquid diet, advance as tolerated Multimodal pain control (2) Alcohol abuse: Would benefit from cessation but currently not interested Thiamine, folic acid, vitamin CIWA (3) Tobacco use: Would benefit from cessation Plan DVT ppx: Low risk Code: Full Code Attestations Medical Necessity Statement*: Patient with recurrent alcoholic pancreatitis with expected hospitalization not to cross two midnights. Coding Level of Care Code Acute Code for Chg Fwd Diagnoses Acute pancreatitis K85.90 Alcohol abuse F10.10 Tobacco use Z72.0
--- NOTE | 2023-03-01 21:10 | ECG_ITS ---
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 Measurements Intervals [place] Rate: 53 P: 46 [place]: 152 QRS: 61 QRSD: 104 T: 42 QT: 465 QTc: 438 Interpretive Statements SINUS BRADYCARDIA Compared to ECG 03/01/2023 17:10:21 No significant changes Electronically Signed On 03-02-2023 8:35:47 CDT by Jamal Godwin M.D. [id number]
[2023-03-01] MEDS: lactated ringers 1,000 ML 100 ML IV (21:25)
[2023-03-01] MEDS: cloNIDine 0.1 mg Tablet PO (22:14)
[2023-03-01] MEDS: hyDRALAzine 20 mg/mL INJ 1 mL 10 MG IVP (22:15)
[2023-03-02] VITALS (16 sets, daily range): BP systolic 128–164; BP diastolic 90–100; PULSE 65–105; RESP 16–20; TEMP 36.6; O2SAT 97–99
[2023-03-02] MEDS: HYDROmorphone 1 mg/mL INJ 1 mL 0.5 MG IVP ×6 (01:06→21:36)
[2023-03-02 03:30] LABS: Basophils # 0.1 10^3/uL (0.0-0.1); Basophils % 0.6 %; Eosinophils # 0.1 10^3/uL (0.0-0.8); Eosinophils % 0.6 %; Hematocrit 47.3 % (42.0-52.0); Hemoglobin 16.7 g/dL (11.7-16.6); Lymphocytes # 2.5 10^3/uL (0.8-4.8); Lymphocytes % 20.4 %; Mean Corpuscular HGB Conc 35.3 g/dL (30.0-36.0); Mean Corpuscular Hemoglobin 35.2 pg (28.0-34.0); Mean Corpuscular Volume 99.6 fl (80-94); Mean Platelet Volume 9.5 fL (7.4-10.4); Monocytes # 1.3 10^3/uL (0.2-0.9); Monocytes % 10.2 %; Neutrophils # 8.35 10^3/uL (1.8-7.7); Neutrophils % 67.6 %; Nucleated Red Blood Cells % 0 %; Platelet Count 250 10^3/cmm (130-400); Red Blood Count 4.75 10^6/uL (4.1-5.3); White Blood Count 12.4 10^3/uL (4.0-10.0)
[2023-03-02 03:45] LABS: Alanine Aminotransferase 92 U/L (0-41); Albumin Level 3.9 g/dL (3.5-5.2); Alkaline Phosphatase 186 U/L (40-130); Anion Gap 16.4 (5-19); Aspartate Amino Transferase 50 U/L (0-40); Blood Urea Nitrogen 3 mg/dL (6-20); Calcium 8.9 mg/dL (8.5-10.5); Carbon Dioxide 26 mmol/L (22-29); Chloride 96 mmol/L (98-107); Globulin 2.2 g/dL (1.3-4.6); Glomerular Filtration Rate 188.1 mL/min (90-130); Glucose 97 mg/dL (65-115); Magnesium 1.3 mg/dL (1.7-2.3); Osmolality Calculated 276 mOsm/kg (285-295); Phosphorus 2.7 mg/dL (2.5-4.5); Potassium 3.4 mmol/L (3.5-5.1); Sodium 135 mmol/L (136-145); Total Protein 6.1 g/dL (6.6-8.7)
[2023-03-02] MEDS: oxyCODONE-APAP 5-325 mg Tablet 1 TAB PO ×5 (06:20→23:48)
[2023-03-02] MEDS: lactated ringers 1,000 ML 100 ML IV ×2 (06:21→16:22)
[2023-03-02] MEDS: pantoprazole DR 40 mg Tablet PO (08:17)
[2023-03-02] MEDS: thiamine 100 mg Tablet PO (08:17)
[2023-03-02] MEDS: folic acid 1 mg Tablet PO (08:17)
[2023-03-02] MEDS: multivitamin therapeutic Tablet 1 TAB PO (08:17)
[2023-03-02 09:10] LABS: Lipase 381 U/L (13-60)
[2023-03-02] MEDS: magnesium sulfate premix 4 GM/100 ML PREMIX IV (09:30)
[2023-03-02] MEDS: nicotine 21 mg Patch 1 PATCH TRANSDERMA (09:36)
[2023-03-02] MEDS: hyDRALAzine 20 mg/mL INJ 1 mL 10 MG IVP (13:47)
--- NOTE | 2023-03-02 18:58 | PM.PN ---
Subjective Subjective: He tells me he has had severe PTSD ever since falling down off a balcony with multiple injuries, states that he fell after falling asleep, and this has been followed by PTSD due to a fear of this happening again. He states that he has been working with his PCP and was started on escitalopram, and made an appointment with [facility] [place] and should be seeing a psychiatrist within a month. He denies any thoughts of self-harm or suicidal ideation. He states he would seek medical attention in case he developed either. He otherwise is still having abdominal tenderness, now with some radiation to the right where he has previously had multiple broken ribs. Not vomiting. Tolerated clear liquids. Vitals/I&O/Wt Last Vital Signs Temp 97.8 F 03/02/23 16:00 Pulse 105 H 03/02/23 16:00 Resp 17 03/02/23 16:27 BP 135/91 03/02/23 16:00 Pulse Ox 98 03/02/23 16:00 O2 Del Method Room Air 03/02/23 16:00 03/02/23 03/02/23 03/02/23 06:59 14:59 22:59 Intake Total 893.333 / 1893.333 940 / 940 1000 / 1940 Output Total 925 / 925 800 / 800 300 / 1100 Balance -31.667 / 968.333 140 / 140 700 / 840 Weight last 48 hrs Weight 79.379 kg Physical Exam Const: COMMON NORMALS: patient oriented x3 and alert GENERAL APPEARANCE: cooperative ORIENTATION/CONSCIOUSNESS: Yes awake HENMT: COMMON NORMALS: oropharynx normal Neck/C-Spine: COMMON NORMALS: no JVD Resp: COMMON NORMALS: normal respiratory effort and clear to auscultation bilaterally AUSCULTATION: clear to auscultation bilaterally Cardio: COMMON NORMALS: no JVD, regular rhythm, S1 normal heart sound present, S2 normal heart sound present and No murmurs present (Cardio) RHYTHM: regular rhythm HEART SOUNDS: S1 normal heart sound present and S2 normal heart sound present GI: COMMON NORMALS: Normal to inspection, nondistended, normoactive bowel sounds present and Soft to palpation PALPATION: Yes Soft to palpation and Yes Tenderness to palpation present (GI) Details: other (Upper abdominal) Extremity: COMMON NORMALS: no joint enlargement and no pedal edema Neuro: COMMON NORMALS: patient oriented x3 and moves all extremities SENSORIUM/ORIENTATION: Yes alert Skin: COMMON NORMALS: no rashes or lesions noted GENERAL SKIN EXAM: no rashes or lesions noted Data 03/02/23 03:00 03/02/23 03:00 A&P Assessment and plan (1) Acute pancreatitis: Requested lipase repeat, noted elevated 386. Still abdominal pain. Is tolerating clear liquids. Follow-up lipase, so far has been increasing. At risk of severe pancreatitis, deterioration. Gallbladder ultrasound noted technically limited, borderline hepatomegaly with diffuse fatty infiltration, gallbladder with small amount of dependent sludge within gallbladder, otherwise unremarkable. Noted pancreatic cyst, 5.1 cm in size not remarkably changed. Continue pain and nausea control. Still requiring IV Dilaudid. Recurrent alcoholic pancreatitis w/ transaminitis Imaging reviewed, notable for previously known pancreatic cyst Continue IV fluids Trial of full liquid diet. (2) Alcohol abuse: Would benefit from cessation but currently not interested Thiamine, folic acid, vitamin CIWA low, so far without sign of alcohol withdrawal. At risk. Discussed with case management. (3) Tobacco use: Would benefit from cessation Continue nicotine patch Plan Hypomagnesemia: Magnesium 1.3. Requested replacement 4 g. Follow-up magnesium level. DVT ppx: Low risk Code: Full Code Attestations Medical Necessity Statement*: Continue admission for assessment management of acute pancreatitis. Diagnoses Acute pancreatitis K85.90 Alcohol abuse F10.10 Tobacco use Z72.0
[2023-03-03] VITALS (9 sets, daily range): BP systolic 141–151; BP diastolic 89–101; PULSE 61–80; RESP 12–18; TEMP 36.4–36.7; O2SAT 97–99
[2023-03-03] MEDS: HYDROmorphone 1 mg/mL INJ 1 mL 0.5 MG IVP ×2 (01:43→07:46)
[2023-03-03] MEDS: lactated ringers 1,000 ML 100 ML IV (01:44)
[2023-03-03] MEDS: oxyCODONE-APAP 5-325 mg Tablet 1 TAB PO ×2 (03:49→09:58)
[2023-03-03 05:21] LABS: Basophils # 0.1 10^3/uL (0.0-0.1); Basophils % 0.5 %; Eosinophils # 0.4 10^3/uL (0.0-0.8); Hematocrit 43.2 % (42.0-52.0); Hemoglobin 15.2 g/dL (11.7-16.6); Lymphocytes # 3.1 10^3/uL (0.8-4.8); Mean Corpuscular HGB Conc 35.2 g/dL (30.0-36.0); Mean Corpuscular Hemoglobin 35.2 pg (28.0-34.0); Mean Platelet Volume 9.6 fL (7.4-10.4); Monocytes # 0.8 10^3/uL (0.2-0.9); Neutrophils # 4.74 10^3/uL (1.8-7.7); Neutrophils % 52.1 %; Nucleated Red Blood Cells % 0 %; Platelet Count 248 10^3/cmm (130-400); Red Blood Count 4.32 10^6/uL (4.1-5.3); Red Cell Distribution Width 13.2 % (12.1-15.1); White Blood Count 9.1 10^3/uL (4.0-10.0)
[2023-03-03 05:37] LABS: Alanine Aminotransferase 64 U/L (0-41); Albumin Level 3.5 g/dL (3.5-5.2); Alkaline Phosphatase 168 U/L (40-130); Anion Gap 11.9 (5-19); Aspartate Amino Transferase 35 U/L (0-40); Blood Urea Nitrogen 2 mg/dL (6-20); Calcium 8.6 mg/dL (8.5-10.5); Carbon Dioxide 27 mmol/L (22-29); Chloride 102 mmol/L (98-107); Globulin 2.1 g/dL (1.3-4.6); Glomerular Filtration Rate 188.1 mL/min (90-130); Glucose 100 mg/dL (65-115); Osmolality Calculated 280 mOsm/kg (285-295); Potassium 3.9 mmol/L (3.5-5.1); Sodium 137 mmol/L (136-145); Total Bilirubin 0.9 mg/dL (0.15-1.2); Total Protein 5.6 g/dL (6.6-8.7)
[2023-03-03 05:44] LABS: Lipase 132 U/L (13-60)
[2023-03-03 05:45] LABS: Magnesium 1.9 mg/dL (1.7-2.3)
--- NOTE | 2023-03-03 09:48 | PC.CHAP ---
Pastoral Care Encounter/Spiritual Assessment Type of Contact [] Declined auto mechanic supervisor visit [] Patient/Family/Request visit [] Outpatient visit [] Follow-up visit [] Physician referral [] Code/Alert [] Routine visit [] Staff referral [] Actively dying [x] Patient sleeping [] Family support [] [] Out of room [] Palliative care [] [] Receiving care in room [] Pre-surgical visit [] Trauma [] Long length of stay [] ICU visit [] Other: Relational/Emotional Strength [] Patient feels connected with others/family/visitors/staff [] Distress [] Loneliness/isolation [] Abandonment Spirituality of Patient [] Person of Mary Lou [] Attends Mormon of their Mary Lou [] Believes in Prayer [] Reads Bible or Anabaptist materials [] There are Spiritual issues to be addressed 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 Interventions [] Prayer [] Active listening [] Non-anxious presence [] Spiritual/emotional support [] Crisis/trauma care [] Spiritual counseling [] Bereavement support [] Provided bereavement packet [] Provided Bible/devotional materials [] Provided toy/stuffed animal, coloring book to patient or family member [] Provided Communion [] Anointing/[place] [] Salvation [] Completed spiritual assessment [] Other: Impact on Illness or Injury [] Angry [] Fearful [] Anxious [] Often cries [] Exhaustion [] Unable to work [] Unable to attend religious [] Unable to walk/stand [] Unable to read [] Unable to drive [] Unable to eat/drink [] Unable to sleep [] Unable to be with family [] Patient intubated [] Other: Summary Time spent with patient
[2023-03-03] MEDS: pantoprazole DR 40 mg Tablet PO (09:58)
[2023-03-03] MEDS: thiamine 100 mg Tablet PO (09:58)
[2023-03-03] MEDS: folic acid 1 mg Tablet PO (09:58)
[2023-03-03] MEDS: multivitamin therapeutic Tablet 1 TAB PO (09:58)
[2023-03-03] MEDS: nicotine 21 mg Patch 1 PATCH TRANSDERMA (09:58)
--- NOTE | 2023-03-03 14:15 | P.DS_ITS ---
Discharge Providers Date of Admission: 03/02/23 19:38 Date of Discharge: March 03, 2023 Attending Provider at Admission: Carrillo Camacho MD Attending Provider at Discharge: Fernando Hooper Primary Care Provider: Mahamed Sales MD Diagnoses at Discharge Discharge Diagnosis (1) Acute pancreatitis: Status: Acute (2) Alcohol abuse: Status: Acute (3) Tobacco use: Status: Acute Reason for Visit Reason for Visit: severe chest pain Hospital Course Hospital Course 37-year-old gentleman with history of bipolar disorder, alcohol-related pancreatitis, smoking, was admitted after presenting with chest pain of 1 day duration, radiating toward her back, worsened with oral intake. Severe. Continues to drink, although noted has been slowing down. Was diagnosed with acute pancreatitis, weight fluctuation, gallbladder ultrasound with borderline nephromegaly with diffuse fatty filtration, 5.5 cm pancreatic cyst not markedly changed with allowing for differences in technique, dependent sludge in gallbladder, otherwise unremarkable. Bile ducts not well demonstrated. Bilirubin remains normal. Mild AST, ALT elevation, mild to moderate abnormality of alk phos, all parameters improving during hospitalization. Lipase highest 381, today down to 132. His symptoms were showing gradual improvement, he tolerated advancement to liquid diet. Today symptoms nearly resolved, he is tolerating oral intake. Requests to be discharged home. Encouraged alcohol cessation, discussed risk of recurrence of pancreatitis, risk of severe illness, disability and/or and/or chronic pancreatitis, he declines seeking rehabilitation, states that he has been multiple times and has not found it helpful. States that he would quit on his own. He is started on escitalopram by his primary provider and is awaiting appointment to see a psychiatrist within the month regarding PTSD. Denies any thoughts of self-harm or suicidal ideation and states in case of occurrence he will seek help. Physical Exam Const: COMMON NORMALS: patient oriented x3 and alert GENERAL APPEARANCE: cooperative ORIENTATION/CONSCIOUSNESS: Yes awake HENMT: COMMON NORMALS: oropharynx normal Neck/C-Spine: COMMON NORMALS: no JVD Resp: COMMON NORMALS: normal respiratory effort and clear to auscultation bilaterally AUSCULTATION: clear to auscultation bilaterally Cardio: COMMON NORMALS: no JVD, regular rhythm, S1 normal heart sound present, S2 normal heart sound present and No murmurs present (Cardio) RHYTHM: regular rhythm HEART SOUNDS: S1 normal heart sound present and S2 normal heart sound present GI: COMMON NORMALS: Normal to inspection, nondistended, normoactive bowel sounds present, Soft to palpation and non-tender PALPATION: Yes Soft to palpation Extremity: COMMON NORMALS: no joint enlargement and no pedal edema Neuro: COMMON NORMALS: patient oriented x3 and moves all extremities SENSORIUM/ORIENTATION: Yes alert Skin: COMMON NORMALS: no rashes or lesions noted GENERAL SKIN EXAM: no rashes or lesions noted Discharge Data Studies Completed and Pending Completed Studies During Hospitalization Category Date Time Status XR chest 1V portable [id number] Stat Exams 03/01/23 15:09 Completed US gall bladder [id number] Stat Ultrasound 03/01/23 16:45 Completed Pending at discharge Category Date Time Status Complete Blood Count w/Auto AM LABS Lab 03/04/23 04:00 Ordered Complete Blood Count w/Auto AM LABS Lab 03/05/23 04:00 Ordered Comprehensive Metabolic Panel AM LABS Lab 03/04/23 04:00 Ordered Comprehensive Metabolic Panel AM LABS Lab 03/05/23 04:00 Ordered Lipase AM LABS Lab 03/04/23 04:00 Ordered Lipase AM LABS Lab 03/05/23 04:00 Ordered Magnesium AM LABS Lab 03/04/23 04:00 Ordered Magnesium AM LABS Lab 03/05/23 04:00 Ordered Radiology Impressions Chest X-Ray 03/01/23 15:09 IMPRESSION: Negative for active cardiopulmonary disease. Gallbladder Ultrasound 03/01/23 16:45 IMPRESSION: 1. Technically limited study. 2. Borderline hepatomegaly with diffuse fatty infiltration. 3. 5.1 cm pancreatic cyst not markedly changed when allowing for differences in technique. Laboratory Results WBC 9.1 10^3/uL (4.0-10.0) 03/03/23 05:05 RBC 4.32 10^6/uL (4.1-5.3) 03/03/23 05:05 Hgb 15.2 g/dL (11.7-16.6) 03/03/23 05:05 Hct 43.2 % (42.0-52.0) 03/03/23 05:05 MCV 100.0 fl (80-94) H 03/03/23 05:05 MCH 35.2 pg (28.0-34.0) H 03/03/23 05:05 MCHC 35.2 g/dL (30.0-36.0) 03/03/23 05:05 RDW 13.2 % (12.1-15.1) 03/03/23 05:05 Plt Count 248 10^3/cmm (130-400) 03/03/23 05:05 MPV 9.6 fL (7.4-10.4) 03/03/23 05:05 Neut % (Auto) 52.1 % 03/03/23 05:05 Lymph % (Auto) 34.0 % 03/03/23 05:05 [place] % (Auto) 9.0 % 03/03/23 05:05 Eos % (Auto) 4.0 % 03/03/23 05:05 Baso % (Auto) 0.5 % 03/03/23 05:05 Neut # (Auto) 4.74 10^3/uL (1.8-7.7) 03/03/23 05:05 Lymph # (Auto) 3.1 10^3/uL (0.8-4.8) 03/03/23 05:05 [place] # (Auto) 0.8 10^3/uL (0.2-0.9) 03/03/23 05:05 Eos # (Auto) 0.4 10^3/uL (0.0-0.8) 03/03/23 05:05 Baso # (Auto) 0.1 10^3/uL (0.0-0.1) 03/03/23 05:05 Nucleated RBC % (auto) 0 % 03/03/23 05:05 Nucleated RBCs # 0.0 /100WBC 03/03/23 05:05 ESR < 1 mm/hr (0-10) 03/01/23 15:33 Sodium 137 mmol/L (136-145) 03/03/23 05:05 Potassium 3.9 mmol/L (3.5-5.1) 03/03/23 05:05 Chloride 102 mmol/L (98-107) 03/03/23 05:05 Carbon Dioxide 27 mmol/L (22-29) 03/03/23 05:05 Anion Gap 11.9 (5-19) 03/03/23 05:05 BUN 2 mg/dL (6-20) L 03/03/23 05:05 Creatinine 0.5 mg/dL (0.7-1.2) L 03/03/23 05:05 GFR Calculation 188.1 mL/min (90-130) H 03/03/23 05:05 Glucose 100 mg/dL (65-115) 03/03/23 05:05 Calculated Osmolality 280 mOsm/kg (285-295) L 03/03/23 05:05 Lactic Acid 1.4 mmol/L (0.5-2.2) 03/01/23 15:33 Calcium 8.6 mg/dL (8.5-10.5) 03/03/23 05:05 Phosphorus 2.7 mg/dL (2.5-4.5) 03/02/23 03:00 Magnesium 1.9 mg/dL (1.7-2.3) 03/03/23 05:05 Total Bilirubin 0.9 mg/dL (0.15-1.2) 03/03/23 05:05 AST 35 U/L (0-40) 03/03/23 05:05 ALT 64 U/L (0-41) H 03/03/23 05:05 Alkaline Phosphatase 168 U/L (40-130) H 03/03/23 05:05 Troponin T Baseline 6 ng/L (0-15) 03/01/23 15:33 Troponin T 120 Minute 6.00 ng/L (0-15) 03/01/23 17:27 Delta Troponin T 0 ABS# (0-10) 03/01/23 17:27 C-Reactive Protein 3.0 mg/L (0.0-4.9) 03/01/23 15:33 Total Protein 5.6 g/dL (6.6-8.7) L 03/03/23 05:05 Albumin 3.5 g/dL (3.5-5.2) 03/03/23 05:05 Globulin 2.1 g/dL (1.3-4.6) 03/03/23 05:05 Lipase 132 U/L (13-60) H 03/03/23 05:05 Vitals Last Vital Signs Temp 97.8 F 03/03/23 11:17 Pulse 75 03/03/23 11:17 Resp 16 03/03/23 11:17 BP 151/101 03/03/23 11:17 Pulse Ox 99 03/03/23 11:17 O2 Del Method Room Air 03/03/23 11:17 Discharge Plan Discharge Patient Disposition: Home Condition: Stable Prescriptions: New folic acid 1 mg Tablet 1 mg PO DAILY Qty: 90 0RF multivitamin with folic acid [Thera] 400 mcg Tablet 1 tab PO DAILY Qty: 90 0RF thiamine mononitrate (vit B1) [Vitamin B-1 (mononitrate)] 100 mg Tablet 100 mg PO DAILY Qty: 90 0RF amlodipine 5 mg tablet 5 mg PO DAILY Qty: 90 0RF magnesium 250 mg tablet 250 mg PO DAILY Qty: 90 0RF Continued Prilosec 10 mg susp,delayed release for recon 10 mg PO DAILY Discharge Orders: Discharge Order (Routine); Ordered 03/03/23 Ordered By: Fernando Hooper Referrals: Mahamed Sales MD [Primary Care Provider] - 03/10/23 10:50 am Patient Instructions: How to Stop Smoking (GEN), Pancreatitis (GEN), Cigarette Smoking and Your Health (GEN), Abuse of Alcohol (GEN), Hypertension (GEN), Hypomagnesemia (GEN) Activity Restrictions/Additional Instructions: Please follow-up with your primary doctor for reassessment after acute pancreatitis. Please stop consumption of alcohol as it will lead to recurrence of pancreatitis, possible severe pancreatitis, possible chronic pancreatitis. Please follow-up with your primary doctor also for assessment regarding p ancreatic cyst. Follow-up with [facility] as per plans. Seek medical attention immediately in case of progressive depression, thoughts of self-harm or suicidal ideation. 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 Continue magnesium supplementation due to low level of magnesium. Try to quit smoking. Follow-up with your primary doctor also regarding hypertension. Her blood pressures have been elevated while in the hospital. You are started on amlodipine. Quitting alcohol will help managing your blood pressure as well. Discharge Attestations Time Spent in Discharge Care*: greater than 30 min Status at Discharge: Cognitive status at discharge: cognitively intact , Behavioral status at discharge: cooperative , Quality Metrics Clinical Quality Measures [ No reported AMI, CVA or VTE this stay] Coding Level of Care Code 97955 Total time (in minutes) for Discharge: 45 Diagnoses Acute pancreatitis K85.90 Alcohol abuse F10.10 Tobacco use Z72.0
== END 2023-03-03 13:30 | disposition home or self-care (01) ==
LOC: ER 19:11 → MEDSURG 19:59
PROVIDERS: Admitting Provider Internal Medicine; Emergency Provider Emergency Medicine; PCP Family Medicine; Visit Provider Internal Medicine
DX: K85.20 Alcohol induced acute pancreatitis without necrosis or infection (principal); R00.1 Bradycardia, unspecified; F10.20 Alcohol dependence, uncomplicated; F17.200 Nicotine dependence, unspecified, uncomplicated; E83.42 Hypomagnesemia
CPT/HCPCS: 36415; 71045; 76705; 80053; 83605; 83690; 83735; 84100; 84484; 85025; 85651; 86140; 93005; 96374; 96375; 96376; 99285; G0378; J0360; J1170; J2270; J2405; J3475; J7120

== ENCOUNTER 2023-03-04 04:06 | Emergency (ER) | payer MEDICAID, SELFPAY ==
[2023-03-04 04:07] VITALS: BP 142/91; PULSE 111; RESP 18; TEMP 36.6; O2SAT 96; BMI 24.4
--- NOTE | 2023-03-04 04:08 | XRR_ITS ---
PROCEDURE INFORMATION: Exam: XR Chest Exam date and time: 03/04/2023 4:32 AM Age: 37 years old Clinical indication: Pain; Angina pectoris; Additional info: Cp TECHNIQUE: Imaging protocol: Radiologic exam of the chest. Views: 1 view. COMPARISON: CR (CHEST, ) 03/01/2023 3:24 PM FINDINGS: Lungs: Unremarkable. No consolidation. Pleural spaces: Unremarkable. No pleural effusion. No pneumothorax. Heart/Mediastinum: Unremarkable. No cardiomegaly. Bones/joints: Postop change right clavicle. XR/XR chest 1V portable [id number] IMPRESSION: No acute process
--- NOTE | 2023-03-04 04:09 | ECG_ITS ---
[facility] Test Date: 2023-03-04 Pat Name: Elena Hernandez Department: Room: Gender: Male Pediatric Nurse: : 1985 Requested By: Hannah Feliciano Order Number: [id number] Boni MD: Adrian Pearson M.D. Measurements Intervals [place] Rate: 110 P: 56 HI: 156 QRS: 84 QRSD: 86 T: 52 QT: 406 QTc: 551 Interpretive Statements SINUS TACHYCARDIA POSSIBLE LEFT ATRIAL ENLARGEMENT [-0.1mV P-WAVE IN V1/V2] NONSPECIFIC T-WAVE ABNORMALITY ABNORMAL RHYTHM ECG Compared to ECG 03/01/2023 22:09:07 T-wave abnormality now present Sinus bradycardia no longer present Electronically Signed On 03-04-2023 23:22:11 CDT by Adrian Pearson M.D. [email or web address]/store/[id number] f
--- NOTE | 2023-03-04 04:19 | W.ED.ABDPA2 ---
HPI - Abdominal Pain General: Chief Complaint: Abdominal Pain Stated Complaint: chest pain Time Seen by Provider: 03/04/23 04:08 Source: patient Mode of arrival: ambulatory Limitations: no limitations History of Present Illness: 37-year-old male has a history of alcohol pancreatitis he was admitted here on Thursday discharged yesterday he states he has been drinking alcohol since being discharged he states he is continue to have epigastric abdominal pain along with some chest pain that sharp in nature denies any vomiting or diarrhea he denies any worsening proving factors he rates his pain a 6 out of 10 currently Associated Symptoms: Denies chills, diarrhea, fever(s), nausea and vomiting Review of Systems Const: Denies: fever(s), chills, body aches or change in appetite Eyes: Denies: blurry vision or eye discomfort ENMT: Denies: throat pain or dental pain Card: Reports: chest pain Resp: Denies: dyspnea GI: Reports: abdominal pain; Denies: nausea, vomiting or diarrhea Musc: Denies: neck pain or back pain Skin/Breast: Denies: rash Neuro: Denies: headache(s) PFSH ED PFSH: Medical History Acute pancreatitis Acute pancreatitis Alcohol abuse Alcohol intoxication Alcohol intoxication Alcoholism C2 cervical fracture C7 cervical fracture Elevated transaminase level Esophagitis Hepatomegaly History of suicide attempt Hypomagnesemia L4 vertebral fracture Pancreatitis, alcoholic, acute Polysubstance abuse Pseudocyst of pancreas Psychiatric care PTSD (post-traumatic stress disorder) Tobacco use Transaminitis Surgical History History of appendectomy History of splenectomy Family History Other Diabetes Social History Smoking and tobacco status: current every day smoker Alcohol intake: current Alcohol intake frequency: 3 or more drinks per day Alcohol type: hard liquor Substance/Drug Use: current Substance/Drug use frequency: daily Physical Exam Const: COMMON NORMALS: no acute distress, patient oriented x3 and healthy appearing HENMT: COMMON NORMALS: normocephalic and atraumatic HEAD & SCALP: normocephalic and atraumatic Neck/C-Spine: COMMON NORMALS: full ROM and supple Chest: COMMONS NORMALS: normal inspection of the chest and normal palpation of entire chest wall Resp: COMMON NORMALS: normal respiratory effort, No retractions, No use of accessory muscles and clear to auscultation bilaterally AUSCULTATION: clear to auscultation bilaterally Cardio: COMMON NORMALS: regular rate, regular rhythm and No murmurs present (Cardio) RATE: regular rate RHYTHM: regular rhythm GI: COMMON NORMALS: Normal to inspection, nondistended, normoactive bowel sounds present, Soft to palpation, non-tender and no masses PALPATION: Yes Soft to palpation Extremity: COMMON NORMALS: normal to inspection and full ROM Neuro: COMMON NORMALS: patient oriented x3, moves all extremities and no focal motor deficits Psych: COMMON NORMALS: mental status grossly normal, Normal thought process present and cooperative THOUGHT PROCESS: Normal thought process present Skin: COMMON NORMALS: no rashes or lesions noted and no wounds GENERAL SKIN EXAM: no rashes or lesions noted Course Vital Signs: Vital signs: Vital Signs Temperature 97.9 F 03/04/23 04:07 Pulse Rate 111 H 03/04/23 04:07 Respiratory Rate 21 H 03/04/23 04:25 Blood Pressure 142/91 03/04/23 04:07 Pulse Oximetry 96 03/04/23 04:25 Oxygen Delivery Me thod Room Air 03/04/23 04:07 MDM - Abdominal Pain Medical Decision Making Patient presents with abdominal pain his pain is much improved here blood works normal besides a minimal leukocytosis exam at discharge is benign no signs of acute surgical abdomen likely pain could be gastritis alcoholic gastritis or still some mild pancreatitis his lipase levels improved we will place him on pain meds we will switch him to Protonix he is to follow-up his PCP and return if worsening. Medical Records I reviewed the patient's medical records. Lab Data I reviewed the patient's lab results. 03/04/23 04:16 03/04/23 04:53 Labs/Radiology: Radiology Impressions Chest X-Ray 03/04/23 04:08 IMPRESSION: No acute process Laboratory Results WBC 16.3 10^3/uL (4.0-10.0) H 03/04/23 04:16 RBC 4.53 10^6/uL (4.1-5.3) 03/04/23 04:16 Hgb 15.7 g/dL (11.7-16.6) 03/04/23 04:16 Hct 44.6 % (42.0-52.0) 03/04/23 04:16 MCV 98.5 fl (80-94) H 03/04/23 04:16 MCH 34.7 pg (28.0-34.0) H 03/04/23 04:16 MCHC 35.2 g/dL (30.0-36.0) 03/04/23 04:16 RDW 13.2 % (12.1-15.1) 03/04/23 04:16 Plt Count 273 10^3/cmm (130-400) 03/04/23 04:16 MPV 10.0 fL (7.4-10.4) 03/04/23 04:16 Neut % (Auto) 65.0 % 03/04/23 04:16 Lymph % (Auto) 25.2 % 03/04/23 04:16 [place] % (Auto) 7.5 % 03/04/23 04:16 Eos % (Auto) 1.4 % 03/04/23 04:16 Baso % (Auto) 0.5 % 03/04/23 04:16 Neut # (Auto) 10.62 10^3/uL (1.8-7.7) H 03/04/23 04:16 Lymph # (Auto) 4.1 10^3/uL (0.8-4.8) 03/04/23 04:16 [place] # (Auto) 1.2 10^3/uL (0.2-0.9) H 03/04/23 04:16 Eos # (Auto) 0.2 10^3/uL (0.0-0.8) 03/04/23 04:16 Baso # (Auto) 0.1 10^3/uL (0.0-0.1) 03/04/23 04:16 Nucleated RBC % (auto) 0 % 03/04/23 04:16 Nucleated RBCs # 0.0 /100WBC 03/04/23 04:16 Sodium 135 mmol/L (136-145) L 03/04/23 04:53 Potassium 4.0 mmol/L (3.5-5.1) 03/04/23 04:53 Chloride 102 mmol/L (98-107) 03/04/23 04:53 Carbon Dioxide 20 mmol/L (22-29) L 03/04/23 04:53 Anion Gap 17.0 (5-19) 03/04/23 04:53 BUN 4 mg/dL (6-20) L 03/04/23 04:53 Creatinine 0.5 mg/dL (0.7-1.2) L 03/04/23 04:53 GFR Calculation 188.1 mL/min (90-130) H 03/04/23 04:53 Glucose 94 mg/dL (65-115) 03/04/23 04:53 Calculated Osmolality 277 mOsm/kg (285-295) L 03/04/23 04:53 Calcium 8.8 mg/dL (8.5-10.5) 03/04/23 04:53 Total Bilirubin 0.6 mg/dL (0.15-1.2) 03/04/23 04:53 AST 42 U/L (0-40) H 03/04/23 04:53 ALT 58 U/L (0-41) H 03/04/23 04:53 Alkaline Phosphatase 163 U/L (40-130) H 03/04/23 04:53 Troponin T Baseline 6 ng/L (0-15) 03/04/23 04:53 Total Protein 6.0 g/dL (6.6-8.7) L 03/04/23 04:53 Albumin 3.8 g/dL (3.5-5.2) 03/04/23 04:53 Globulin 2.2 g/dL (1.3-4.6) 03/04/23 04:53 Lipase 82 U/L (13-60) H 03/04/23 04:53 Ethyl Alcohol 74 mg/dL (0-10) H 03/04/23 04:53 EKG Data EKG 1: I personally reviewed and interpreted this EKG as follows: EKG interpretation date: 03/04/23 EKG interpretation time: 04:13 Interpretation: sinus tach hr [address] or t wave abnormalities qrs 86 qtc 471 Discharge Plan Discharge Patient Disposition: Home Clinical Impression: Abdominal pain Condition: Stable Prescriptions: New hydrocodone-acetaminophen 5-325 mg tablet 1 tab PO Q6H PRN (Reason: pain) Qty: 14 0RF Protonix 40 mg tablet,delayed release (DR/EC) 40 mg PO DAILY Qty: 60 0RF ondansetron 4 mg tablet,disintegrating 4 mg PO Q6H PRN (Reason: nausea and vomiting) Qty: 14 0RF Discontinued Prilosec 10 mg susp,delayed release for recon 10 mg PO DAILY No Action folic acid 1 mg Tablet 1 mg PO DAILY Qty: 90 0RF Vitamin B-1 (mononitrate) 100 mg Tablet 100 mg PO DAILY Qty: 90 0RF Thera 400 mcg Tablet 1 tab PO DAILY Qty: 90 0RF amlodipine 5 mg tablet 5 mg PO DAILY Qty: 90 0RF magnesium 250 mg tablet 250 mg PO DAILY Qty: 90 0RF Discharge Orders: Discharge ED (Routine); Ordered 03/04/23 Ordered By: Hannah Feliicano Referrals: Mahamed Sales MD [Primary Care Provider] - 1-3 days Discharge Diet: Advance as tolerated Discharge Activity: Resume usual activity Patient Instructions: Abdominal Pain (ED), Opioid Safety Coding Level of Care Code ED Spud Driller for Marko Avery
[2023-03-04 04:23] VITALS: BP 145/93; PULSE 112; RESP 18; O2SAT 97
[2023-03-04] MEDS: ondansetron 2 mg/ML SDV 2 mL 4 MG IVP (04:23)
[2023-03-04 04:25] VITALS: RESP 21; O2SAT 96
[2023-03-04] MEDS: morphine 4 mg/mL SDV 1 mL IVP (04:25)
[2023-03-04 04:26] LABS: Basophils # 0.1 10^3/uL (0.0-0.1); Basophils % 0.5 %; Eosinophils # 0.2 10^3/uL (0.0-0.8); Eosinophils % 1.4 %; Hematocrit 44.6 % (42.0-52.0); Hemoglobin 15.7 g/dL (11.7-16.6); Lymphocytes # 4.1 10^3/uL (0.8-4.8); Lymphocytes % 25.2 %; Mean Corpuscular HGB Conc 35.2 g/dL (30.0-36.0); Mean Corpuscular Hemoglobin 34.7 pg (28.0-34.0); Mean Corpuscular Volume 98.5 fl (80-94); Monocytes # 1.2 10^3/uL (0.2-0.9); Monocytes % 7.5 %; Neutrophils # 10.62 10^3/uL (1.8-7.7); Nucleated Red Blood Cells % 0 %; Platelet Count 273 10^3/cmm (130-400); Red Blood Count 4.53 10^6/uL (4.1-5.3); Red Cell Distribution Width 13.2 % (12.1-15.1); White Blood Count 16.3 10^3/uL (4.0-10.0)
[2023-03-04 05:03] VITALS: BP 132/87; PULSE 84; RESP 11; O2SAT 96
[2023-03-04 05:16] LABS: Albumin Level 3.8 g/dL (3.5-5.2); Alcohol Level 74 mg/dL (0-10); Alkaline Phosphatase 163 U/L (40-130); Blood Urea Nitrogen 4 mg/dL (6-20); Calcium 8.8 mg/dL (8.5-10.5); Carbon Dioxide 20 mmol/L (22-29); Chloride 102 mmol/L (98-107); Globulin 2.2 g/dL (1.3-4.6); Glomerular Filtration Rate 188.1 mL/min (90-130); Glucose 94 mg/dL (65-115); Lipase 82 U/L (13-60); Osmolality Calculated 277 mOsm/kg (285-295); Sodium 135 mmol/L (136-145); Total Bilirubin 0.6 mg/dL (0.15-1.2)
[2023-03-04 05:19] LABS: Alanine Aminotransferase 58 U/L (0-41); Aspartate Amino Transferase 42 U/L (0-40); Troponin(5th) Baseline 6 ng/L (0-15)
[2023-03-04 05:31] VITALS: BP 132/101; PULSE 80; RESP 16; O2SAT 96
== END 2023-03-04 05:31 | disposition home or self-care (01) ==
PROVIDERS: Emergency Provider Emergency Medicine; PCP Family Medicine
DX: R10.13 Epigastric pain (principal); F17.200 Nicotine dependence, unspecified, uncomplicated; Z79.899 Other long term (current) drug therapy
CPT/HCPCS: 71045; 80053; 80307; 83690; 84484; 85025; 93005; 96374; 96375; 99285; J2270; J2405

== ENCOUNTER 2023-05-18 10:45 | Emergency (ER) | payer OTHER, MEDICAID, SELFPAY ==
[2023-05-18 10:52] VITALS: BP 137/91; PULSE 97; RESP 22; TEMP 36.9; O2SAT 93; BMI 25.1
--- NOTE | 2023-05-18 10:54 | ED_ITS ---
HPI - Chest Pain General: Chief Complaint: Chest Pain Stated Complaint: chest pain Time Seen by Provider: 05/18/23 10:49 Source: patient Mode of arrival: EMS Limitations: no limitations History of Present Illness: Patient is a 37-year-old male who presents to ED today with a complaint of left- sided chest pain. He states pain seems to radiate into his left arm and into his left upper abdomen. Patient states he does have a history of pancreatitis that has somewhat felt similar previously. Patient states he does not feel short of breath. No injury or trauma to the chest. Denies any recent risk factors for PE. He is not having any swelling to his legs or calf pain. Denies recent illness, cough, or fevers. Patient denies nausea, vomiting, diarrhea. He does report chronic alcohol abuse with his last drink being yesterday. MD complaint: chest pain Onset (ago): hour(s) Prior episodes: No Onset: during rest Pain location: left chest Pain radiation: left arm Severity: moderate Exacerbating factors: nothing Associated symptoms: Reports abdominal pain; Deny dyspnea, fever(s), nausea, palpitations, syncope or vomiting Treatment prior to arrival: aspirin (given by EMS) and nitroglycerin (given by EMS) Risk Factors: Coronary artery disease risk factors: none Thoracic aortic dissection risk factors: none Review of Systems Const: Denies: fever(s), chills, body aches, fatigue or malaise Eyes: Denies: change in vision or blurry vision Card: Reports: chest pain; Denies: palpitations, irregular heart rhythm, edema, swelling of feet/ankles, lightheadedness, syncope, pre-syncope, dyspnea on exertion, orthopnea, leg pain with exertion or acrocyanosis Resp: Denies: dyspnea, productive cough, wheezing, pain on inspiration, hemoptysis or chest congestion GI: Reports: abdominal pain; Denies: nausea, vomiting, heartburn or diarrhea : Denies: flank pain, difficulty urinating, dysuria, urinary frequency, urinary urgency or urinary hesitancy Musc: Denies: neck pain, back pain, extremity pain, extremity swelling or joint pain Skin/Breast: Denies: rash Neuro: Denies: headache(s), numbness in extremities, weakness in extremities, sensory changes, difficulty walking, dizziness or confusion PFS ED PFSH: Medical History Acute pancreatitis Acute pancreatitis Alcohol abuse Alcohol intoxication Alcohol intoxication Alcoholism C2 cervical fracture C7 cervical fracture Elevated transaminase level Esophagitis Hepatomegaly History of suicide attempt Hypomagnesemia L4 vertebral fracture Pancreatitis, alcoholic, acute Polysubstance abuse Pseudocyst of pancreas Psychiatric care PTSD (post-traumatic stress disorder) Tobacco use Transaminitis Surgical History History of appendectomy History of splenectomy Family History Other Diabetes Social History Smoking and tobacco/nicotine status: current every day tobacco/nicotine user Alcohol intake: current Alcohol intake frequency: 3 or more drinks per day Alcohol type: hard liquor Substance/Drug Use: current Substance/Drug use frequency: daily Physical Exam Const: COMMON NORMALS: average body habitus, patient oriented x3, no limitations, alert and well nourished GENERAL APPEARANCE: cooperative and in distress (appears uncomfortable) ORIENTATION/CONSCIOUSNESS: Yes awake, Yes oriented to person, Yes oriented to place and Yes oriented to time HENMT: COMMON NORMALS: normocephalic and atraumatic HEAD & SCALP: normal to inspection, normocephalic and atraumatic TEETH & GINGIVA: Yes poor dentition Eye: COMMON NORMALS: no scleral icterus Neck/C-Spine: COMMON NORMALS: full ROM, no lymphadenopathy, supple and no meningeal signs Chest: COMMONS NORMALS: normal inspection of the chest OTHER: reports tenderness to palpation of L anterior chest wall Resp: COMMON NORMALS: normal respiratory effort and clear to auscultation bilaterally AUSCULTATION: clear to auscultation bilaterally Cardio: COMMON NORMALS: regular rate and regular rhythm RATE: regular rate RHYTHM: regular rhythm GI: COMMON NORMALS: Normal to inspection, nondistended, normoactive bowel sounds present, Soft to palpation, No hepatosplenomegaly present and no masses INSPECTION: Yes scar AUSCULTATION: Yes normoactive bowel sounds PALPATION: Yes Soft to palpation, Yes Tenderness to palpation present (GI) (epigastric/LUQ), Yes Guarding due to palpation present (GI), No Rigid due to palpation and Yes No hepatosplenomegaly present : COMMON NORMALS: Yes no CVA tenderness BLADDER/KIDNEY EXAM: Yes no CVA tenderness Back/Pelvis: COMMON NORMALS: no CVA tenderness and thoracic and lumbar spine normal to inspection Extremity: COMMON NORMALS: normal to inspection, no clubbing, cyanosis or edema, no calf tenderness and no pedal edema GENERAL: Yes normal exam except as noted Neuro: GENE COMA SCALE: document GCS findings Gene coma scale eye opening: Spontaneous Gene coma scale verbal response: Orientated [place] coma scale motor response: Obey commands Gene coma scale total score: 15 COMMON NORMALS: patient oriented x3, moves all extremities, no focal motor deficits and no sensory deficits noted SENSORIUM/ORIENTATION: Yes alert, Yes oriented to person, Yes oriented to place and Yes oriented to time MENINGEAL SIGNS: Yes no meningeal signs Skin: COMMON NORMALS: no rashes or lesions noted GENERAL SKIN EXAM: no rashes or lesions noted Course ED course: Patient appears much more comfortable after IV Toradol, Ativan, and GI cocktail. His baseline troponin is normal with a delta of 0 initial EKG showing sinus rhythm with no ischemic changes. Vital Signs: Vital signs: Vital Signs Temperature 98.4 F 05/18/23 10:52 Pulse Rate 90 05/18/23 14:35 Respiratory Rate 16 05/18/23 14:40 Blood Pressure 143/99 05/18/23 14:35 Pulse Oximetry 96 05/18/23 14:40 Oxygen Delivery Me thod Room Air 05/18/23 14:35 MDM - Chest Pain Medical Decision Making Patient upon re-examination patient is resting comfortably in no acute distress. His vital signs have remained stable during his stay. His blood work overall is unremarkable. He has had a history of chronic elevations to his LFTs most likely secondary to his chronic alcohol use. They are slightly higher today than his baseline. He has a normal tbili and normal lipase. Did add a hepatitis panel which was negative. His baseline and repeat trops are normal. CXR normal. Initial EKG showing normal sinus with no ischemic changes. Repeat EKG showing a RBBB and possibly atrial flutter. I never visualized any type of arrhythmia on monitor during his stay. EKG was repeated shortly after this and now showing normal sinus comparable to his baseline EKG. I think EKG performed at 1301 was erroneous. I think abdominal pain most likely secondary to an alcoholic gastritis. Patient states he is supposed to be taking protonix-recommend he start taking this BID, avoid alcohol/NSAIDS, and spicy/acidic foods. Recommend he follow up with PCP if symptoms persist. Return to ED precautions given. Lab Data 05/18/23 10:58 05/18/23 10:58 Radiology Impressions Chest X-Ray 05/18/23 10:59 IMPRESSION: No evidence of acute pulmonary process. Laboratory Results WBC 7.49 10^3/uL (3.29-11.43) 05/18/23 10:58 RBC 4.41 10^6/uL (3.85-5.65) 05/18/23 10:58 Hgb 15.60 g/dL (11.27-16.99) 05/18/23 10:58 Hct 45.1 % (37-53) 05/18/23 10:58 MCV 102.3 fl (82-101) H 05/18/23 10:58 MCH 35.4 pg (27-33) H 05/18/23 10:58 MCHC 34.6 g/dL (30-55) 05/18/23 10:58 RDW 13.6 % (12.1-15.1) 05/18/23 10:58 Plt Count 195 10^3/cmm (157-399) 05/18/23 10:58 MPV 10.5 fL (7.4-10.4) H 05/18/23 10:58 Neut % (Auto) 42.8 % 05/18/23 10:58 Lymph % (Auto) 41.1 % 05/18/23 10:58 [place] % (Auto) 11.6 % 05/18/23 10:58 Eos % (Auto) 2.5 % 05/18/23 10:58 Baso % (Auto) 1.2 % 05/18/23 10:58 Neut # (Auto) 3.20 10^3/uL (1.8-7.7) 05/18/23 10:58 Lymph # (Auto) 3.1 10^3/uL (0.8-4.8) 05/18/23 10:58 [place] # (Auto) 0.9 10^3/uL (0.2-0.9) 05/18/23 10:58 Eos # (Auto) 0.2 10^3/uL (0.0-0.8) 05/18/23 10:58 Baso # (Auto) 0.1 10^3/uL (0.0-0.1) 05/18/23 10:58 Nucleated RBC % (auto) 0 % 05/18/23 10:58 Nucleated RBCs # 0.0 /100WBC 05/18/23 10:58 Sodium 143 mmol/L (136-145) 05/18/23 10:58 Potassium 4.1 mmol/L (3.5-5.1) 05/18/23 10:58 Chloride 105 mmol/L (98-107) 05/18/23 10:58 Carbon Dioxide 26 mmol/L (22-29) 05/18/23 10:58 Anion Gap 16.1 (5-19) 05/18/23 10:58 BUN 6 mg/dL (6-20) 05/18/23 10:58 Creatinine 0.6 mg/dL (0.7-1.2) L 05/18/23 10:58 GFR Calculation 152.4 mL/min (90-130) H 05/18/23 10:58 Glucose 107 mg/dL (65-115) 05/18/23 10:58 Calculated Osmolality 294 mOsm/kg (285-295) 05/18/23 10:58 Calcium 8.8 mg/dL (8.5-10.5) 05/18/23 10:58 Total Bilirubin 0.7 mg/dL (0.15-1.2) 05/18/23 10:58 AST 281 U/L (0-40) H 05/18/23 10:58 ALT 207 U/L (0-41) H 05/18/23 10:58 Alkaline Phosphatase 264 U/L (40-130) H 05/18/23 10:58 Troponin T Baseline < 6 ng/L (0-15) 05/18/23 10:58 Troponin T 120 Minute 6.0 ng/L (0-15) 05/18/23 12:58 Delta Troponin T 0.17028 ABS# (0-10) 05/18/23 12:58 Total Protein 6.9 g/dL (6.6-8.7) 05/18/23 10:58 Albumin 4.2 g/dL (3.5-5.2) 05/18/23 10:58 Globulin 2.7 g/dL (1.3-4.6) 05/18/23 10:58 Lipase 22 U/L (13-60) 05/18/23 10:58 Hepatitis A IgM Ab Non-reactive (Nonreactive) 05/18/23 10:58 Hep Bs Antigen Non-reactive (Nonreactive) 05/18/23 10:58 Hep B Core IgM Ab Non-reactive (Nonreactive) 05/18/23 10:58 Hepatitis C Antibody Non-reactive (Nonreactive) 05/18/23 10:58 All radiology interpretation(s) finalized by discharge Discharge Plan Discharge Patient Disposition: Home Clinical Impression: Atypical chest pain Abdominal pain Qualifiers: Abdominal location: unspecified location Qualified Code(s): R10.9 - Unspecified abdominal pain Condition: Stable Prescriptions: No Action sertraline [Zoloft] 50 mg tablet 50 mg PO DAILY Qty: 30 1RF naltrexone 50 mg tablet 50 mg PO DAILY Qty: 30 0RF pantoprazole [Protonix] 40 mg tablet,delayed release (DR/EC) 40 mg PO DAILY Qty: 60 0RF Remeron 15 mg tablet 15 mg PO BEDTIME folic acid 1 mg Tablet 1 mg PO DAILY Qty: 90 0RF thiamine mononitrate (vit B1) [Vitamin B-1 (mononitrate)] 100 mg Tablet 100 mg PO DAILY Qty: 90 0RF multivitamin with folic acid [Thera] 400 mcg Tablet 1 tab PO DAILY Qty: 90 0RF amlodipine 5 mg tablet 5 mg PO DAILY Qty: 90 0RF magnesium 250 mg tablet 250 mg PO DAILY Qty: 90 0RF Discharge Orders: Discharge ED (Routine); Ordered 05/18/23 Ordered By: Nuha Pacheco Referrals: Mahamed Sales MD [Primary Care Provider] - Patient Instructions: Abdominal Pain (ED) Activity Restrictions/Additional Instructions: As we discussed I recommend he start taking his pantoprazole twice daily. He can follow-up with his primary care provider in regards to the elevated liver enzymes today. He has had these previously. Recommend bland liquid diet and advance as tolerated. Abstain from alcohol use. He may return to the emergency department for severe chest pain, shortness of breath, difficulty breathing, severe worsening abdominal pain, repetitive episodes of vomiting, fevers, or any other concerns you may have. Coding Level of Care Code ED Inspector Soldering for Marko Avery
--- NOTE | 2023-05-18 10:59 | XRR_ITS ---
PROCEDURE INFORMATION: Exam: XR Chest Exam date and time: 05/18/2023 11:02 AM Age: 37 years old Clinical indication: Pain; Angina pectoris; Prior surgery; Surgery date: 6+ months; Surgery type: -- pancreas/ spleen/ right clavicle; Additional info: Chest pain TECHNIQUE: Imaging protocol: Radiologic exam of the chest. Views: 1 view. COMPARISON: CR XR chest 1V portable [id number] 03/04/2023 4:32 AM FINDINGS: Lungs: Unremarkable. No consolidation. Pleural spaces: Unremarkable. No pleural effusion. No pneumothorax. Heart/Mediastinum: Unremarkable. No cardiomegaly. Bones/joints: The patient is status post ORIF of the right clavicle. There is an old appearing left 2nd rib fracture. XR/XR chest 1V portable [id number] IMPRESSION: No evidence of acute pulmonary process.
--- NOTE | 2023-05-18 10:59 | ECG_ITS ---
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 Measurements Intervals [place] Rate: 94 P: 60 LA: 145 QRS: 85 QRSD: 91 T: 40 QT: 357 QTc: 448 Interpretive Statements SINUS RHYTHM POSSIBLE LEFT ATRIAL ENLARGEMENT [-0.1mV P-WAVE IN V1/V2] Some nonspecific T wave changes Compared to ECG 03/04/2023 04:13:20 Sinus tachycardia no longer present T-wave abnormality no longer present Electronically Signed On 05-18-2023 23:16:18 CDT by Adrian Pearson M.D. [id number] f
[2023-05-18] MEDS: sodium chloride 0.9% 1,000 ML 999 ML IV (11:08)
[2023-05-18 11:13] LABS: Basophils # 0.1 10^3/uL (0.0-0.1); Basophils % 1.2 %; Eosinophils # 0.2 10^3/uL (0.0-0.8); Eosinophils % 2.5 %; Hematocrit 45.1 % (37-53); Lymphocytes # 3.1 10^3/uL (0.8-4.8); Lymphocytes % 41.1 %; Mean Corpuscular HGB Conc 34.6 g/dL (30-55); Mean Corpuscular Hemoglobin 35.4 pg (27-33); Mean Corpuscular Volume 102.3 fl (82-101); Mean Platelet Volume 10.5 fL (7.4-10.4); Monocytes # 0.9 10^3/uL (0.2-0.9); Monocytes % 11.6 %; Neutrophils % 42.8 %; Nucleated Red Blood Cells % 0 %; Platelet Count 195 10^3/cmm (157-399); Red Blood Count 4.41 10^6/uL (3.85-5.65); Red Cell Distribution Width 13.6 % (12.1-15.1); White Blood Count 7.49 10^3/uL (3.29-11.43)
[2023-05-18 11:27] LABS: Alanine Aminotransferase 207 U/L (0-41); Albumin Level 4.2 g/dL (3.5-5.2); Alkaline Phosphatase 264 U/L (40-130); Anion Gap 16.1 (5-19); Aspartate Amino Transferase 281 U/L (0-40); Blood Urea Nitrogen 6 mg/dL (6-20); Calcium 8.8 mg/dL (8.5-10.5); Carbon Dioxide 26 mmol/L (22-29); Chloride 105 mmol/L (98-107); Globulin 2.7 g/dL (1.3-4.6); Glomerular Filtration Rate 152.4 mL/min (90-130); Glucose 107 mg/dL (65-115); Lipase 22 U/L (13-60); Osmolality Calculated 294 mOsm/kg (285-295); Potassium 4.1 mmol/L (3.5-5.1); Sodium 143 mmol/L (136-145); Total Bilirubin 0.7 mg/dL (0.15-1.2); Total Protein 6.9 g/dL (6.6-8.7); Troponin(5th) Baseline < 6 ng/L (0-15)
[2023-05-18 12:21] LABS: Hepatitis A Antibody IgM Non-Reactive (Nonreactive); Hepatitis B Core IgM Non-Reactive (Nonreactive); Hepatitis B Surface Antigen Non-Reactive (Nonreactive); Hepatitis C Virus Antibody Non-Reactive (Nonreactive)
[2023-05-18 12:26] VITALS: BP 137/91
[2023-05-18] MEDS: LORazepam 2 mg/mL INJ 1 mL 1 MG IVP (12:28)
[2023-05-18] MEDS: ketorolac 30 mg/mL INJ IVP (12:28)
--- NOTE | 2023-05-18 12:59 | ECG_ITS ---
[facility] Test Date: 2023-05-18 Pat Name: Elena Hernandez Department: Room: Gender: Male Supervisor Filling And Packing: : 1985 Requested By: Nuha Pacheco Order Number: [id number] Boni MD: Adrian Pearson M.D. Measurements Intervals [place] Rate: 78 P: 0 MA: 0 QRS: 38 QRSD: 165 T: -5 QT: 422 QTc: 482 Interpretive Statements ATRIAL FLUTTER/TACHYCARDIA RIGHT BUNDLE BRANCH BLOCK [120+ ms QRS DURATION, UPRIGHT V1, 40+ ms S IN I/aVL/V4/V5/V6] Compared to ECG 05/18/2023 10:47:26 Right bundle-branch block now present Sinus rhythm no longer present Electronically Signed On 05-18-2023 23:21:01 CDT by Adrian Pearson M.D. [id number]
[2023-05-18] MEDS: lidocaine 2% viscous 15 ML, aluminum-mag hydrox-simethicon 30 ML, sucralfate oral liq 1 GM PO (13:43)
[2023-05-18 14:16] LABS: Troponin 5 2HR Delta 0.00001 ABS# (0-10)
[2023-05-18 14:35] VITALS: BP 143/99; PULSE 90; RESP 16; O2SAT 96
[2023-05-18 14:40] VITALS: RESP 16; O2SAT 96
[2023-05-18] MEDS: morphine 4 mg/mL SDV 1 mL IVP (14:40)
[2023-05-18 14:54] VITALS: BP 143/99; PULSE 90; RESP 16; O2SAT 96
[2023-05-18 15:14] LABS: Amphetamines Screen Urine Negative (Negative); Barbiturates Screen Urine Negative (Negative); Benzodiazepines Screen Urine Positive (Negative); Cocaine Screen Urine Negative (Negative); Opiate Screen Urine Negative (Negative); PCP Screen Urine Negative (Negative); THC Screen Urine Positive (Negative)
--- NOTE | 2023-05-18 16:59 | ECG_ITS ---
[facility] Test Date: 2023-05-18 Pat Name: Elena Hernandez Department: Room: Gender: Male Supervisor Wound: : 1985 Requested By: Nuha Pacheco Order Number: [id number] Boni MD: Adrian Pearson M.D. Measurements Intervals [place] Rate: 74 P: 57 [place]: 149 QRS: 85 QRSD: 93 T: 44 QT: 375 QTc: 419 Interpretive Statements SINUS RHYTHM Compared to ECG 05/18/2023 13:01:15 Atrial flutter no longer present Right bundle-branch block no longer present Electronically Signed On 05-18-2023 23:21:40 CDT by Adrian Pearson M.D. [id number]
== END 2023-05-18 14:56 | disposition home or self-care (01) ==
PROVIDERS: Emergency Provider Physician Assistant; PCP Family Medicine
DX: R07.89 Other chest pain (principal); R10.9 Unspecified abdominal pain; F17.210 Nicotine dependence, cigarettes, uncomplicated
CPT/HCPCS: 71045; 80053; 80074; 80306; 83690; 84484; 85025; 93005; 96361; 96374; 96375; 99285; J1885; J2060; J2270; J7030

== ENCOUNTER → 2023-09-17 19:30 | Outpatient (BNVA) | payer MEDICAID, SELFPAY | PROVIDERS: PCP Family Medicine; Visit Provider Registered Nurse Neonatal Intensive Care | DX: J02.9 Acute pharyngitis, unspecified (principal) | CPT/HCPCS: 87880 ==

== ENCOUNTER 2023-10-06 10:08 | Emergency (ER) | payer MEDICAID, SELFPAY ==
[2023-10-06 10:12] VITALS: BP 145/111; PULSE 82; RESP 18; TEMP 36.4; O2SAT 100; BMI 26.4
[2023-10-06 10:14] VITALS: BP 149/105; PULSE 90; RESP 28
--- NOTE | 2023-10-06 10:39 | ECG_ITS ---
[facility] Test Date: 2023-10-06 Pat Name: Elena Hernandez Department: Room: Gender: Male Filament Tester: : 1985 Requested By: Nuha Pacheco Order Number: [id number] Boni MD: Adrian Pearson M.D. Measurements Intervals [place] Rate: 74 P: 49 GA: 134 QRS: 57 QRSD: 87 T: 54 QT: 375 QTc: 418 Interpretive Statements SINUS RHYTHM Compared to ECG 05/18/2023 14:18:32 No significant changes Electronically Signed On 10-06-2023 18:26:11 POUND KEEPER by Adrian Pearson M.D. [id number] f
--- NOTE | 2023-10-06 10:39 | ED_ITS ---
HPI - Chest Pain 2 General: Chief Complaint: Chest Pain Stated Complaint: chest pains Time Seen by Provider: 10/06/23 10:18 Source: patient Mode of arrival: ambulatory Limitations: no limitations History of Present Illness: Patient is a 38-year-old male who presents to ED today with complaint of left- sided chest pain with radiation into his left arm that started this morning when he woke up. Pain has been persistent over the past few hours. He feels slightly short of breath. states he has been coughing up a bunch of junk in the mornings. He has also been doing strenuous activity and moving a lot of scrap metal. Patient has no known cardiac history. He is an everyday smoker. History of pancreatitis however patient is not complaining of abdominal pain and states his symptoms today do not feel like his pancreatitis in the past. He arrives slightly hypertensive. Patient states his normal blood pressure is 140/100s. He is on amlodipine and lisinopril prescribed to him by his PCP Dr. Roylance. ANDREW complaint: chest pain Onset (ago): hour(s) Timing of current episode: constant Prior episodes: Yes Onset: awoke with symptoms Pain location: left chest Pain radiation: left arm Severity: moderate Quality: sharp Relieving factors: nothing Exacerbating factors: nothing Associated symptoms: Reports no associated symptoms and dyspnea; Deny abdominal pain, fever(s), nausea, palpitations, syncope or vomiting Treatment prior to arrival: none Risk Factors: Coronary artery disease risk factors: smoking history Thoracic aortic dissection risk factors: none Review of Systems 2 Const: Denies: fever(s), chills, body aches, fatigue or malaise ENMT: Denies: throat pain or odynophagia Card: Reports: chest pain; Denies: palpitations, irregular heart rhythm, edema, swelling of feet/ankles, lightheadedness, syncope, pre-syncope, dyspnea on exertion, orthopnea, leg pain with exertion or acrocyanosis Resp: Reports: dyspnea, productive cough, pain on inspiration and chest congestion; Denies: wheezing or hemoptysis GI: Denies: abdominal pain, nausea, vomiting or diarrhea Musc: Denies: back pain Neuro: Denies: headache(s) or dizziness PFSH ED 2 PFSH: Medical History History of ADHD Cannabis use disorder Psychiatric care Tobacco use Hypomagnesemia Hepatomegaly Transaminitis Alcohol intoxication Acute pancreatitis Alcoholism Esophagitis Alcohol intoxication Acute pancreatitis Pseudocyst of pancreas Polysubstance abuse History of suicide attempt C7 cervical fracture C2 cervical fracture L4 vertebral fracture Alcohol abuse PTSD (post-traumatic stress disorder) Elevated transaminase level Pancreatitis, alcoholic, acute Surgical History History of appendectomy History of splenectomy Family History Other Diabetes Social History Smoking and tobacco/nicotine status: current every day tobacco/nicotine user Alcohol intake: current Alcohol intake frequency: 3 or more drinks per day Alcohol type: hard liquor Substance/Drug Use: current Substance/Drug use frequency: daily Physical Exam 2 Const: COMMON NORMALS: average body habitus, patient oriented x3, no limitations and alert GENERAL APPEARANCE: cooperative and appears older than stated age ORIENTATION/CONSCIOUSNESS: Yes awake, Yes oriented to person, Yes oriented to place and Yes oriented to time HENMT: COMMON NORMALS: normocephalic and atraumatic HEAD & SCALP: normal to inspection, normocephalic and atraumatic FACE & SINUS: normal facial exam Neck/C-Spine: COMMON NORMALS: no lymphadenopathy and no JVD GENERAL: Yes normal visual inspection Chest: COMMONS NORMALS: normal inspection of the chest OTHER: TTP L chest wall Resp: COMMON NORMALS: normal respiratory effort and clear to auscultation bilaterally AUSCULTATION: clear to auscultation bilaterally Cardio: COMMON NORMALS: no JVD, regular rate and regular rhythm RATE: r egular rate RHYTHM: regular rhythm GI: COMMON NORMALS: Normal to inspection, nondistended, normoactive bowel sounds present, Soft to palpation, non-tender, No hepatosplenomegaly present and no masses PALPATION: Yes Soft to palpation and Yes No hepatosplenomegaly present Extremity: COMMON NORMALS: no clubbing, cyanosis or edema, no calf tenderness and no pedal edema Neuro: COMMON NORMALS: patient oriented x3 SENSORIUM/ORIENTATION: Yes alert, Yes oriented to person, Yes oriented to place and Yes oriented to time Course 2 Vital Signs: Vital signs: Vital Signs Temperature 97.5 F L 10/06/23 10:12 Pulse Rate 90 10/06/23 10:14 Respiratory Rate 28 H 10/06/23 10:14 Blood Pressure 149/105 10/06/23 10:14 Pulse Oximetry 100 10/06/23 10:12 Oxygen Delivery Me thod Room Air 10/06/23 10:12 MDM - Chest Pain Medical Decision Making Patient's EKG showing no ischemic concerns. His blood work overall is unremarkable. He has chronically elevated LFTs most likely consistent with his chronic alcohol abuse. Baseline troponin is negative. His CXR showing no acute findings. Patient is stable for discharge from the emergency department with recommendations for PCP follow-up. Return precautions given. We did discuss increasing his lisinopril to 10mg twice daily and keeping a blood pressure log to follow-up with his primary care. Medical Records I reviewed the patient's medical records. Lab Data I reviewed the patient's lab results. 10/06/23 10:25 10/06/23 10:25 Radiology Impressions Chest X-Ray 10/06/23 10:39 IMPRESSION: No acute chest findings. Laboratory Results WBC 10.71 10^3/uL (3.29-11.43) 10/06/23 10:25 RBC 5.19 10^6/uL (3.85-5.65) 10/06/23 10:25 Hgb 17.30 g/dL (11.27-16.99) H 10/06/23 10:25 Hct 50.2 % (37-53) 10/06/23 10:25 MCV 96.7 fl (82-101) 10/06/23 10:25 MCH 33.3 pg (27-33) H 10/06/23 10:25 MCHC 34.5 g/dL (30-55) 10/06/23 10:25 RDW 14.0 % (12.1-15.1) 10/06/23 10:25 Plt Count 415 10^3/cmm (157-399) H 10/06/23 10:25 MPV 9.1 fL (7.4-10.4) 10/06/23 10:25 Neut % (Auto) 51.6 % 10/06/23 10:25 Lymph % (Auto) 36.7 % 10/06/23 10:25 [place] % (Auto) 8.6 % 10/06/23 10:25 Eos % (Auto) 2.0 % 10/06/23 10:25 Baso % (Auto) 0.7 % 10/06/23 10:25 Neut # (Auto) 5.53 10^3/uL (1.8-7.7) 10/06/23 10:25 Lymph # (Auto) 3.9 10^3/uL (0.8-4.8) 10/06/23 10:25 [place] # (Auto) 0.9 10^3/uL (0.2-0.9) 10/06/23 10:25 Eos # (Auto) 0.2 10^3/uL (0.0-0.8) 10/06/23 10:25 Baso # (Auto) 0.1 10^3/uL (0.0-0.1) 10/06/23 10:25 Nucleated RBC % (auto) 0 % 10/06/23 10:25 Nucleated RBCs # 0.0 /100WBC 10/06/23 10:25 Sodium 140 mmol/L (136-145) 10/06/23 10:25 Potassium 4.5 mmol/L (3.5-5.1) 10/06/23 10:25 Chloride 103 mmol/L (98-107) 10/06/23 10:25 Carbon Dioxide 27 mmol/L (22-29) 10/06/23 10:25 Anion Gap 14.5 (5-19) 10/06/23 10:25 BUN 8 mg/dL (6-20) 10/06/23 10:25 Creatinine 0.7 mg/dL (0.7-1.2) 10/06/23 10:25 GFR Calculation 126.9 mL/min (90-130) 10/06/23 10:25 Glucose 106 mg/dL (65-115) 10/06/23 10:25 Calculated Osmolality 289 mOsm/kg (285-295) 10/06/23 10:25 Calcium 9.3 mg/dL (8.5-10.5) 10/06/23 10:25 Total Bilirubin 0.7 mg/dL (0.15-1.2) 10/06/23 10:25 AST 51 U/L (0-40) H 10/06/23 10:25 ALT 56 U/L (0-41) H 10/06/23 10:25 Alkaline Phosphatase 182 U/L (40-130) H 10/06/23 10:25 Troponin T Baseline < 6 ng/L (0-15) 10/06/23 10:25 Total Protein 7.8 g/dL (6.6-8.7) 10/06/23 10:25 Albumin 4.6 g/dL (3.5-5.2) 10/06/23 10:25 Globulin 3.2 g/dL (1.3-4.6) 10/06/23 10:25 All radiology interpretation(s) finalized by discharge Discharge Plan Discharge Patient Disposition: Home Clinical Impression: Non-cardiac chest pain Condition: Stable Prescriptions: No Action pantoprazole [Protonix] 40 mg tablet,delayed release (DR/EC) 80 mg PO DAILY aspirin [Children's Aspirin] 81 mg tablet,chewable 81 mg PO DAILY naltrexone 50 mg tablet 50 mg PO DAILY Qty: 30 1RF sertraline [Zoloft] 100 mg tablet 100 mg PO DAILY Qty: 30 1RF folic acid 1 mg Tablet 1 mg PO DAILY Qty: 90 0RF thiamine mononitrate (vit B1) [Vitamin B-1 (mononitrate)] 100 mg Tablet 100 mg PO DAILY Qty: 90 0RF multivitamin with folic acid [Thera] 400 mcg Tablet 1 tab PO DAILY Qty: 90 0RF amlodipine 5 mg tablet 5 mg PO DAILY Qty: 90 0RF magnesium 250 mg tablet 250 mg PO DAILY Qty: 90 0RF buspirone 10 mg Tablet 10 mg PO BID lisinopril 10 mg tablet 10 mg PO DAILY potassium citrate 99 mg Capsule 99 mg PO DAILY Remeron 15 mg tablet 15 mg PO QPM atomoxetine 60 mg capsule 60 mg PO DAILY Discharge Orders: Discharge ED (Routine); Ordered 10/06/23 Ordered By: Nuha Pacheco Referrals: Mahamed Sales MD [Primary Care Provider] - Coding Level of Care Code ED Tool Crib Supervisor for Marko Avery
--- NOTE | 2023-10-06 10:39 | XRR_ITS ---
PROCEDURE INFORMATION: Exam: XR Chest Exam date and time: 10/06/2023 10:43 AM Age: 38 years old Clinical indication: Pain; Angina pectoris; Prior surgery; Surgery date: 6+ months; Surgery type: Right clavicle, spleen, pancreas; Additional info: Chest pain TECHNIQUE: Imaging protocol: Radiologic exam of the chest. Views: 1 view. COMPARISON: CR XR chest 1V portable [id number] 05/18/2023 11:02 AM FINDINGS: Lungs: No focal consolidation. Pleural spaces: No pleural effusion. No pneumothorax. Heart/Mediastinum: No cardiomegaly. Bones/joints: No acute findings. Right clavicle fixation. XR/XR chest 1V portable [id number] IMPRESSION: No acute chest findings.
[2023-10-06 10:47] LABS: Basophils # 0.1 10^3/uL (0.0-0.1); Basophils % 0.7 %; Eosinophils # 0.2 10^3/uL (0.0-0.8); Hematocrit 50.2 % (37-53); Lymphocytes # 3.9 10^3/uL (0.8-4.8); Lymphocytes % 36.7 %; Mean Corpuscular HGB Conc 34.5 g/dL (30-55); Mean Corpuscular Hemoglobin 33.3 pg (27-33); Mean Corpuscular Volume 96.7 fl (82-101); Mean Platelet Volume 9.1 fL (7.4-10.4); Monocytes # 0.9 10^3/uL (0.2-0.9); Monocytes % 8.6 %; Neutrophils # 5.53 10^3/uL (1.8-7.7); Neutrophils % 51.6 %; Nucleated Red Blood Cells % 0 %; Platelet Count 415 10^3/cmm (157-399); Red Blood Count 5.19 10^6/uL (3.85-5.65); White Blood Count 10.71 10^3/uL (3.29-11.43)
[2023-10-06 10:58] LABS: Troponin(5th) Baseline < 6 ng/L (0-15)
[2023-10-06 11:00] LABS: Alanine Aminotransferase 56 U/L (0-41); Albumin Level 4.6 g/dL (3.5-5.2); Alkaline Phosphatase 182 U/L (40-130); Anion Gap 14.5 (5-19); Aspartate Amino Transferase 51 U/L (0-40); Blood Urea Nitrogen 8 mg/dL (6-20); Calcium 9.3 mg/dL (8.5-10.5); Carbon Dioxide 27 mmol/L (22-29); Chloride 103 mmol/L (98-107); Creatinine Clr Calc Pharmacy 162.7833; Globulin 3.2 g/dL (1.3-4.6); Glomerular Filtration Rate 126.9 mL/min (90-130); Glucose 106 mg/dL (65-115); Osmolality Calculated 289 mOsm/kg (285-295); Potassium 4.5 mmol/L (3.5-5.1); Sodium 140 mmol/L (136-145); Total Bilirubin 0.7 mg/dL (0.15-1.2); Total Protein 7.8 g/dL (6.6-8.7)
[2023-10-06] MEDS: ketorolac 30 mg/mL INJ IVP (11:25)
[2023-10-06 11:49] VITALS: BP 146/95; PULSE 78; RESP 27; O2SAT 97
== END 2023-10-06 11:47 | disposition home or self-care (01) ==
PROVIDERS: Emergency Provider Physician Assistant; PCP Family Medicine
DX: R07.89 Other chest pain (principal); Z79.82 Long term (current) use of aspirin; Z72.0 Tobacco use
CPT/HCPCS: 71045; 80053; 84484; 85025; 93005; 96374; 99285; J1885

== ENCOUNTER 2023-10-29 09:50 | Outpatient (CLI) | payer OTHER, SELFPAY ==
--- NOTE | 2023-10-29 10:02 | XR_ITS ---
WS: [id number] Exam: XR hand RT 2V [id number] Date/Time of Exam: 10/29/2023 10:13 AM Reason For Exam: PAIN No acute fracture or dislocation. Old fracture deformities of the second and fifth metacarpals. No so ft tissue foreign bodies are seen. 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 IMPRESSION: 1. First CMC joint DJD. No acute fracture. 2. Old fracture deformities of the second and fifth metacarpals.
--- NOTE | 2023-10-29 10:02 | XR_ITS ---
WS: [id number] Exam: XR lumbar spine 2-3V* [id number] Date/Time of Exam: 10/29/2023 10:13 AM Reason For Exam: PAIN No fracture or dislocation. Mild degenerative narrowing of the L5-S1 disc. Partial lumbarization of S 1. Posterior elements are intact. Mild facet DJD. IMPRESSION: 1. Mild degenerative changes. No fracture or malalignment.
== END 2023-10-29 09:51 | disposition home or self-care (01) ==
LOC: RAD 09:54
PROVIDERS: PCP Family Medicine; Visit Provider Dermatology
DX: M18.11 Unilateral primary osteoarthritis of first carpometacarpal joint, right hand (principal); M47.896 Other spondylosis, lumbar region
CPT/HCPCS: 72100; 73120

== ENCOUNTER 2023-10-31 14:10 | Emergency (ER) | payer MEDICAID, SELFPAY ==
[2023-10-31 14:15] VITALS: BP 152/93; PULSE 109; RESP 22; TEMP 36.6; O2SAT 94; BMI 27.1
--- NOTE | 2023-10-31 14:25 | XRR_ITS ---
PROCEDURE INFORMATION: Exam: XR Right Ribs with PA Chest Exam date and time: 10/31/2023 2:48 PM Age: 38 years old Clinical indication: Injury or trauma; Fall; Rib area; Blunt trauma (contusions or hematomas); Additional info: Fall, post rib pain TECHNIQUE: Imaging protocol: Radiologic exam of the right ribs with PA chest. Views: 3 views COMPARISON: CR XR chest 1V portable [id number] 10/06/2023 10:43 AM FINDINGS: Lungs: Unremarkable. No consolidation. Pleural spaces: Unremarkable. No pleural effusion. No pneumothorax. Heart/Mediastinum: Unremarkable. No cardiomegaly. Bones/joints: Subtle contour abnormality at the posterior aspects of the right 5th through 7th ribs raises concern for nondisplaced fractures of unknown chronicity. Right clavicle fixation. XR/XR ribs RT mn 3V w CXR1V [id number] IMPRESSION: Subtle contour abnormality at the posterior aspects of the right 5th through 7th ribs raises concern for nondisplaced fractures of unknown chronicity. Consider CT scan of the thorax for further evaluation as clinically warranted.
--- NOTE | 2023-10-31 15:16 | W.ED.SOB ---
HPI - SOB/Dyspnea General: Chief Complaint: Shortness of Breath/Dyspnea Stated Complaint: sob, right side pain Time Seen by Provider: 10/31/23 14:25 History of Present Illness: HPI Narrative: Patient presents to the ER with complaints of right posterior chest wall pain and shortness of breath. Patient said he was pulling out a root that snapped suddenly that he went sailing backwards stepped in a pothole fell down and landed on his stump on his right ribs. Patient since then has been having worsening shortness of breath and rib pain with any movement. Patient had a series of 2 falls from approximately 26 feet multiple years ago in [facility] [place] where he broke multiple ribs anterior and posterior on the right side, as well as multiple vertebrae. Review of Systems General: Reports: 10 or more systems reviewed and unremarkable except in HPI and below PFSH ED PFSH: Medical History History of ADHD Cannabis use disorder Psychiatric care Tobacco use Hypomagnesemia Hepatomegaly Transaminitis Alcohol intoxication Acute pancreatitis Alcoholism Esophagitis Alcohol intoxication Acute pancreatitis Pseudocyst of pancreas Polysubstance abuse History of suicide attempt C7 cervical fracture C2 cervical fracture L4 vertebral fracture Alcohol abuse PTSD (post-traumatic stress disorder) Elevated transaminase level Pancreatitis, alcoholic, acute Surgical History History of appendectomy History of splenectomy Family History Other Diabetes Social History Smoking and tobacco/nicotine status: current every day tobacco/nicotine user Alcohol intake: current Alcohol intake frequency: 3 or more drinks per day Alcohol type: hard liquor Substance/Drug Use: current Substance/Drug use frequency: daily Physical Exam Const: COMMON NORMALS: no acute distress, average body habitus, patient oriented x3, no limitations, healthy appearing, alert and well nourished Neck/C-Spine: COMMON NORMALS: no JVD Chest: COMMONS NORMALS: negative for normal palpation of entire chest wall (Pain with palpation right anterior lateral posterior chest wall.) Resp: COMMON NORMALS: normal respiratory effort, No retractions, No use of accessory muscles and clear to auscultation bilaterally AUSCULTATION: clear to auscultation bilaterally Cardio: COMMON NORMALS: no JVD, regular rate, regular rhythm, S1 normal heart sound present, S2 normal heart sound present, No gallops present (Cardio), No clicks present (Cardio), No murmurs present (Cardio) and No rub (Cardio) RATE: regular rate RHYTHM: regular rhythm HEART SOUNDS: S1 normal heart sound present and S2 normal heart sound present GI: COMMON NORMALS: Normal to inspection, nondistended, normoactive bowel sounds present, Soft to palpation, non-tender, No hepatosplenomegaly present and no masses PALPATION: Yes Soft to palpation and Yes No hepatosplenomegaly present Neuro: COMMON NORMALS: patient oriented x3 SENSORIUM/ORIENTATION: Yes alert Course Vital Signs: Vital signs: Vital Signs Temperature 97.9 F 10/31/23 14:15 Pulse Rate 109 H 10/31/23 14:15 Respiratory Rate 17 10/31/23 16:09 Blood Pressure 152/93 10/31/23 14:15 Pulse Oximetry 94 10/31/23 16:09 Oxygen Delivery Me thod Room Air 10/31/23 14:15 MDM - SOB/Dyspnea Medical Decision Making Rib series showed no acute fractures but possible chronic fractures. Patient was given Toradol and 4 mg of morphine which helped his pain significantly. Patient be discharged home on [place] and instructed to follow-up with his PCP within next 7 days. Differential Diagnosis Unlikely acute exacerbation of chronic obstructive airways disease, congestive heart failure, community acquired pneumonia, asthma with exacerbation or pulmonary embolism Medical Records I reviewed the patient's medical records. Lab Data I reviewed the patient's lab results. Labs/Radiology: Radiology Impressions Ribs X-Ray 10/31/23 14:25 IMPRESSION: Subtle contour abnormality at the posterior aspects of the right 5th through 7th ribs raises concern for nondisplaced fractures of unknown chronicity. Consider CT scan of the thorax for further evaluation as clinically warranted. All radiology interpretation(s) finalized by discharge Discharge Plan Discharge Patient Disposition: Home Clinical Impression: Chest wall pain Fall Qualifiers: Encounter type: initial encounter Qualified Code(s): W19.XXXA - Unspecified fall, initial encounter Condition: Stable Prescriptions: New tramadol 50 mg tablet 50 mg PO Q8H PRN (Reason: pain) Qty: 14 0RF No Action pantoprazole [Protonix] 40 mg tablet,delayed release (DR/EC) 80 mg PO DAILY aspirin [Children's Aspirin] 81 mg tablet,chewable 81 mg PO DAILY sertraline [Zoloft] 100 mg tablet 100 mg PO DAILY Qty: 30 1RF naltrexone 50 mg tablet 50 mg PO DAILY Qty: 30 1RF mirtazapine [Remeron] 15 mg tablet 15 mg PO QPM Qty: 30 1RF ipratropium bromide 21 mcg (0.03 %) spray,non-aerosol 2 spray INTRANASAL BID levocetirizine 5 mg tablet 5 mg PO DAILY folic acid 1 mg Tablet 1 mg PO DAILY Qty: 90 0RF thiamine mononitrate (vit B1) [Vitamin B-1 (mononitrate)] 100 mg Tablet 100 mg PO DAILY Qty: 90 0RF multivitamin with folic acid [Thera] 400 mcg Tablet 1 tab PO DAILY Qty: 90 0RF amlodipine 5 mg tablet 5 mg PO DAILY Qty: 90 0RF magnesium 250 mg tablet 250 mg PO DAILY Qty: 90 0RF buspirone 10 mg Tablet 10 mg PO BID lisinopril 10 mg tablet 10 mg PO DAILY potassium citrate 99 mg Capsule 99 mg PO DAILY atomoxetine 60 mg capsule 60 mg PO DAILY Discharge Orders: Discharge ED (Routine); Ordered 10/31/23 Ordered By: Christopher Hutton Referrals: Mahamed Sales MD [Primary Care Provider] - 1 week Patient Instructions: Opioid Safety, Pain Management Activity Restrictions/Additional Instructions: Please take your medicine as directed. Your chest x-rays did not show any acute rib fractures but they may be missed on plain films. Please follow-up with your family practice physician within next 7 days for further evaluation treatment as needed. Coding Level of Care Code ED Suppository Molding Machine Operator for Marko Avery
[2023-10-31] MEDS: ketorolac 60 mg/2 mL INJ IM (15:20)
[2023-10-31 16:09] VITALS: RESP 17; O2SAT 94
[2023-10-31] MEDS: morphine 4 mg/mL SDV 1 mL IM (16:09)
== END 2023-10-31 17:52 | disposition home or self-care (01) ==
PROVIDERS: Emergency Provider Emergency Medicine; PCP Family Medicine
DX: R07.89 Other chest pain (principal); Z79.82 Long term (current) use of aspirin; Z72.0 Tobacco use
CPT/HCPCS: 71101; 96372; 99284; J1885; J2270

== ENCOUNTER 2023-11-10 21:33 | Emergency (ER) | payer MEDICAID, SELFPAY ==
[2023-11-10 21:37] VITALS: BP 127/87; PULSE 98; RESP 15; TEMP 36.2; O2SAT 96
--- NOTE | 2023-11-10 21:39 | XRR_ITS ---
PROCEDURE INFORMATION: Exam: XR Chest Exam date and time: 11/10/2023 9:47 PM Age: 38 years old Clinical indication: Injury or trauma; Other: Fall 3 weeks ago hurt RT side; Prior surgery; Surgery date: 6+ months; Surgery type: RT clavicle; Additional info: Cp fall 3 weeks ago hurt RT side TECHNIQUE: Imaging protocol: Radiologic exam of the chest. Views: 2 views. COMPARISON: CR (CHEST, ) 10/31/2023 2:48 PM FINDINGS: Lungs: Curvilinear atelectasis or scarring in the left lung base. No consolidation. Pleural spaces: Unremarkable. No pleural effusion. No pneumothorax. Heart/Mediastinum: Unremarkable. No cardiomegaly. Bones/joints: Metallic plate and screws noted within the right clavicle. Visualized osseous structures are intact. XR/XR chest 2V* [id number] IMPRESSION: No acute findings.
--- NOTE | 2023-11-10 21:47 | ED_ITS ---
HPI - General Adult General: Chief complaint: General Medical Stated complaint: Lung Pain From Injury Time Seen by Provider: 11/10/23 21:39 Source: patient Mode of arrival: ambulatory Limitations: no limitations History of Present Illness: 38-year-old male states that he had had a fall injury to his right lungs on October 24. He was seen here the had an x-ray that showed possible rib fractures he states that he was prescribed tramadol then but states that tramadol does not work he does take naltrexone 50 mg daily he believes that it is making his tramadol not working he has had increasing right-sided chest pain especially with inspiration he rates his pain a 5 out of 10 currently denies any abdominal pain. Denies any vomiting. Associated symptoms: Reports chest pain; Deny dyspnea, headache(s), nausea, rash or vomiting Review of Systems Const: Denies: fever(s), chills, body aches or change in appetite ENMT: Denies: throat pain or dental pain Card: Reports: chest pain Resp: Denies: dyspnea GI: Denies: abdominal pain, nausea, vomiting or diarrhea Musc: Denies: neck pain or back pain Skin/Breast: Denies: rash Neuro: Denies: headache(s) PFSH ED PFSH: Medical History History of ADHD Cannabis use disorder Psychiatric care Tobacco use Hypomagnesemia Hepatomegaly Transaminitis Alcohol intoxication Acute pancreatitis Alcoholism Esophagitis Alcohol intoxication Acute pancreatitis Pseudocyst of pancreas Polysubstance abuse History of suicide attempt C7 cervical fracture C2 cervical fracture L4 vertebral fracture Alcohol abuse PTSD (post-traumatic stress disorder) Elevated transaminase level Pancreatitis, alcoholic, acute Surgical History History of appendectomy History of splenectomy Family History Other Diabetes Social History Smoking and tobacco/nicotine status: current every day tobacco/nicotine user Alcohol intake: current Alcohol intake frequency: 3 or more drinks per day Alcohol type: hard liquor Substance/Drug Use: current Substance/Drug use frequency: daily Physical Exam Const: COMMON NORMALS: no acute distress, patient oriented x3 and healthy appearing HENMT: COMMON NORMALS: normocephalic and atraumatic HEAD & SCALP: normocephalic and atraumatic Neck/C-Spine: COMMON NORMALS: full ROM and supple Chest: COMMONS NORMALS: normal inspection of the chest OTHER: point tender over right chest wall Resp: COMMON NORMALS: normal respiratory effort, No retractions, No use of accessory muscles and clear to auscultation bilaterally AUSCULTATION: clear to auscultation bilaterally Cardio: COMMON NORMALS: regular rate, regular rhythm and No murmurs present (Cardio) RATE: regular rate RHYTHM: regular rhythm GI: COMMON NORMALS: Normal to inspection, nondistended, normoactive bowel sounds present, Soft to palpation, non-tender and no masses PALPATION: Yes Soft to palpation Extremity: COMMON NORMALS: normal to inspection Neuro: COMMON NORMALS: patient oriented x3, moves all extremities and no focal motor deficits Psych: COMMON NORMALS: mental status grossly normal, Normal thought process present and cooperative THOUGHT PROCESS: Normal thought process present Skin: COMMON NORMALS: no rashes or lesions noted GENERAL SKIN EXAM: no rashes or lesions noted Course 2 Vital Signs: Vital signs: Vital Signs Temperature 97.1 F L 11/10/23 21:37 Pulse Rate 98 11/10/23 21:37 Respiratory Rate 15 11/10/23 21:37 Blood Pressure 127/87 11/10/23 21:37 Pulse Oximetry 96 11/10/23 21:37 Oxygen Delivery Me thod Room Air 11/10/23 21:37 MDM - General Adult Medical Decision Making Patient presents here with right-sided chest pain likely chest wall pain x-ray shows no pneumothorax he is stable for discharge is to follow-up PCP and return if worsening. XR interpretation done by ED provider, pending radiology final review ED provider radiology interpretation(s): Chest x-ray no acute abnormality Discharge Plan Discharge Patient Disposition: Home Clinical Impression: Chest wall pain Condition: Stable Prescriptions: New Naprosyn 500 mg tablet 500 mg PO BID PRN (Reason: pain) Qty: 20 0RF No Action pantoprazole [Protonix] 40 mg tablet,delayed release (DR/EC) 80 mg PO DAILY aspirin [Children's Aspirin] 81 mg tablet,chewable 81 mg PO DAILY sertraline [Zoloft] 100 mg tablet 100 mg PO DAILY Qty: 30 1RF naltrexone 50 mg tablet 50 mg PO DAILY Qty: 30 1RF mirtazapine [Remeron] 15 mg tablet 15 mg PO QPM Qty: 30 1RF ipratropium bromide 21 mcg (0.03 %) spray,non-aerosol 2 spray INTRANASAL BID levocetirizine 5 mg tablet 5 mg PO DAILY tramadol 50 mg tablet 50 mg PO Q8H PRN (Reason: pain) Qty: 14 0RF folic acid 1 mg Tablet 1 mg PO DAILY Qty: 90 0RF thiamine mononitrate (vit B1) [Vitamin B-1 (mononitrate)] 100 mg Tablet 100 mg PO DAILY Qty: 90 0RF multivitamin with folic acid [Thera] 400 mcg Tablet 1 tab PO DAILY Qty: 90 0RF amlodipine 5 mg tablet 5 mg PO DAILY Qty: 90 0RF magnesium 250 mg tablet 250 mg PO DAILY Qty: 90 0RF buspirone 10 mg Tablet 10 mg PO BID lisinopril 10 mg tablet 10 mg PO DAILY potassium citrate 99 mg Capsule 99 mg PO DAILY atomoxetine 60 mg capsule 60 mg PO DAILY Discharge Orders: Discharge ED (Routine); Ordered 11/10/23 Ordered By: Hannah Feliciano Referrals: Mahamed Sales MD [Primary Care Provider] - 1-3 days Discharge Diet: Advance as tolerated Discharge Activity: Resume usual activity Patient Instructions: Chest Wall Pain (ED) Coding Level of Care Code ED Public Health Epidemiologist for Marko Avery
[2023-11-10] MEDS: ketorolac 60 mg/2 mL INJ IM (22:01)
[2023-11-10 22:21] VITALS: BP 112/80; PULSE 91; O2SAT 94
[2023-11-10 22:30] VITALS: BP 112/80; PULSE 91; O2SAT 94
== END 2023-11-10 22:30 | disposition home or self-care (01) ==
PROVIDERS: Emergency Provider Emergency Medicine; PCP Family Medicine
DX: R07.89 Other chest pain (principal); Z79.82 Long term (current) use of aspirin; Z72.0 Tobacco use
CPT/HCPCS: 71046; 96372; 99284; J1885

== ENCOUNTER 2023-12-12 20:25 | Emergency (ER) | payer MEDICAID, SELFPAY ==
[2023-12-12 20:29] VITALS: BP 145/107; PULSE 95; RESP 13; TEMP 36.7; O2SAT 98; BMI 26.4
--- NOTE | 2023-12-12 20:44 | ECG_ITS ---
[facility] Test Date: 2023-12-12 Pat Name: Elena Hernandez Department: Room: Gender: Male Compliance Associate: : 1985 Requested By: Demetrio Vizcaino Order Number: [id number] Boni MD: Adrian Pearson M.D. Measurements Intervals [place] Rate: 97 P: 53 SC: 160 QRS: 43 QRSD: 87 T: 33 QT: 369 QTc: 471 Interpretive Statements SINUS RHYTHM Compared to ECG 10/06/2023 10:13:30 No significant changes Electronically Signed On 12-13-2023 22:13:34 CDT by Adrian Pearson M.D. [id number]
--- NOTE | 2023-12-12 20:45 | XRR_ITS ---
PROCEDURE INFORMATION: Exam: XR Chest Exam date and time: 12/13/2023 2:11 AM Age: 38 years old Clinical indication: Shortness of breath; Chest pressure; Prior surgery; Surgery date: 6+ months; Surgery type: Clavicular fixation; Patient HX: C/O chest pain with SOB TECHNIQUE: Imaging protocol: Radiologic exam of the chest. Views: 1 view. COMPARISON: CR (CHEST, ) 11/10/2023 9:47 PM FINDINGS: Lungs: Low lung volumes. Streaky bibasilar atelectasis noted, [id number]-left. Pneumonia should be considered in the adequate clinical setting. Pleural spaces: Unremarkable. No pleural effusion. No pneumothorax. Heart/Mediastinum: Stable cardiomediastinal silhouette. Bones/joints: Old healed fracture deformity and ORIF hardware re-identified in the right clavicle. XR/XR chest 1V portable [id number] IMPRESSION: Streaky bibasilar atelectasis, [id number]-left. Pneumonia should be excluded clinically.
[2023-12-12 21:59] LABS: Basophils # 0.1 10^3/uL (0.0-0.1); Basophils % 0.7 %; Eosinophils # 0.2 10^3/uL (0.0-0.8); Eosinophils % 1.8 %; Hematocrit 46.3 % (37-53); Lymphocytes # 4.5 10^3/uL (0.8-4.8); Lymphocytes % 37.6 %; Mean Corpuscular HGB Conc 34.1 g/dL (30-55); Mean Corpuscular Hemoglobin 33.3 pg (27-33); Mean Corpuscular Volume 97.7 fl (82-101); Mean Platelet Volume 8.7 fL (7.4-10.4); Neutrophils % 51.6 %; Nucleated Red Blood Cells % 0 %; Platelet Count 499 10^3/cmm (157-399); Red Blood Count 4.74 10^6/uL (3.85-5.65); Red Cell Distribution Width 14.8 % (12.1-15.1); White Blood Count 12.06 10^3/uL (3.29-11.43)
[2023-12-12 22:20] LABS: Blood Urea Nitrogen 7 mg/dL (6-20); Calcium 8.8 mg/dL (8.5-10.5); Carbon Dioxide 27 mmol/L (22-29); Chloride 100 mmol/L (98-107); Creatinine Clr Calc Pharmacy 162.7833; Glomerular Filtration Rate 126.9 mL/min (90-130); Glucose 97 mg/dL (65-115); Osmolality Calculated 278 mOsm/kg (285-295); Sodium 135 mmol/L (136-145)
[2023-12-12 22:22] LABS: Troponin(5th) Baseline < 6 ng/L (0-15)
[2023-12-12 22:23] LABS: Anion Gap 12.4 (5-19); Potassium 4.4 mmol/L (3.5-5.1)
[2023-12-13 00:11] LABS: Troponin 5 2HR Delta 0.00001 ABS# (0-10)
[2023-12-13] MEDS: oxyCODONE-APAP 5-325 mg Tablet 2 TAB PO (02:56)
[2023-12-13 02:59] LABS: Troponin 5 6HR Delta 0.00001 ng/L (0-12)
[2023-12-13 03:01] LABS: Lipase 30 U/L (13-60)
--- NOTE | 2023-12-13 03:31 | W.ED.CHESTPA ---
HPI - Chest Pain General: Chief Complaint: Chest Pain Stated Complaint: Sob, chest pain n/v Time Seen by Provider: 12/13/23 01:55 History of Present Illness: 38-year-old male with a history of extensive abdominal surgery, pancreatitis. He presents with substernal and epigastric pain. No vomiting. No fever. Pain has been present for a couple of days. Worse with deep breathing. He relates a cough. It is mostly not sputum producing. Associated symptoms: Reports abdominal pain, dyspnea, nausea and vomiting (once); Deny fever(s) or palpitations Review of Systems Const: Denies: fever(s) ENMT: Denies: throat pain Card: Reports: chest pain; Denies: palpitations Resp: Reports: dyspnea and non-productive cough GI: Reports: abdominal pain, nausea and vomiting (once) Psych: Reports: anxiety PFSH ED PFSH: Medical History Generalized anxiety disorder History of ADHD Cannabis use disorder Psychiatric care Tobacco use Hypomagnesemia Hepatomegaly Transaminitis Alcohol intoxication Acute pancreatitis Alcoholism Esophagitis Alcohol intoxication Acute pancreatitis Pseudocyst of pancreas Polysubstance abuse History of suicide attempt C7 cervical fracture C2 cervical fracture L4 vertebral fracture Alcohol abuse PTSD (post-traumatic stress disorder) Elevated transaminase level Pancreatitis, alcoholic, acute Surgical History History of appendectomy History of splenectomy Family History Other Diabetes Social History Smoking and tobacco/nicotine status: current every day tobacco/nicotine user Alcohol intake: current Alcohol intake frequency: 3 or more drinks per day Alcohol type: hard liquor Substance/Drug Use: current Substance/Drug use frequency: daily Physical Exam Const: COMMON NORMALS: no acute distress GENERAL APPEARANCE: cooperative; not ill appearing and not frail appearing HENMT: COMMON NORMALS: normocephalic, atraumatic and Normal external nose present HEAD & SCALP: normocephalic and atraumatic FACE & SINUS: normal facial exam and face symmetric NOSE: Normal external nose present Eye: COMMON NORMALS: Equal, round and reactive pupils present and EOMs intact bilaterally PUPIL: Yes Equal, round and reactive pupils present Neck/C-Spine: GENERAL: Yes trachea midline Chest: CHEST: Yes Symmetrical chest wall rise Resp: COMMON NORMALS: normal respiratory effort, No retractions, No use of accessory muscles and clear to auscultation bilaterally AUSCULTATION: clear to auscultation bilaterally Cardio: COMMON NORMALS: regular rate and regular rhythm RATE: regular rate RHYTHM: regular rhythm GI: COMMON NORMALS: Normal to inspection, nondistended, normoactive bowel sounds present PALPATION: Yes Tenderness to palpation present (GI) (epigastric) Extremity: COMMON NORMALS: no pedal edema Neuro: GENE COMA SCALE: document GCS findings Gene coma scale eye opening: Spontaneous [place] coma scale verbal response: Orientated [place] coma scale motor response: Obey commands Gene coma scale total score: 15 SENSORY EXAM: Yes extremities (intact) Psych: COMMON NORMALS: speech normal SPEECH: Yes normal speech Skin: COMMON NORMALS: no rashes or lesions noted GENERAL SKIN EXAM: no rashes or lesions noted Course Vital Signs: Vital signs: Vital Signs Temperature 98.0 F 12/12/23 20:29 Pulse Rate 74 12/13/23 03:53 Respiratory Rate 18 12/13/23 03:53 Blood Pressure 120/74 12/13/23 03:53 Pulse Oximetry 98 12/13/23 03:53 Oxygen Delivery Me thod Room Air 12/12/23 20:29 MDM - Chest Pain Medical Decision Making Vitals are stable, though he has mild hypertension. White blood cell count is 12. His lipase is normal at 30. Other laboratory testing is not remarkable. Chest x-ray is unremarkable. He will be discharged to home Lab Data 12/12/23 21:48 12/12/23 21:48 Radiology Impressions Chest X-Ray 12/12/23 20:45 IMPRESSION: Streaky bibasilar atelectasis, [id number]-zygo-left. Pneumonia should be excluded clinically. Laboratory Results WBC 12.06 10^3/uL (3.29-11.43) H 12/12/23 21:48 RBC 4.74 10^6/uL (3.85-5.65) 12/12/23 21:48 Hgb 15.80 g/dL (11.27-16.99) 12/12/23 21:48 Hct 46.3 % (37-53) 12/12/23 21:48 MCV 97.7 fl (82-101) 12/12/23 21:48 MCH 33.3 pg (27-33) H 12/12/23 21:48 MCHC 34.1 g/dL (30-55) 12/12/23 21:48 RDW 14.8 % (12.1-15.1) 12/12/23 21:48 Plt Count 499 10^3/cmm (157-399) H 12/12/23 21:48 MPV 8.7 fL (7.4-10.4) 12/12/23 21:48 Neut % (Auto) 51.6 % 12/12/23 21:48 Lymph % (Auto) 37.6 % 12/12/23 21:48 [place] % (Auto) 8.0 % 12/12/23 21:48 Eos % (Auto) 1.8 % 12/12/23 21:48 Baso % (Auto) 0.7 % 12/12/23 21:48 Neut # (Auto) 6.20 10^3/uL (1.8-7.7) 12/12/23 21:48 Lymph # (Auto) 4.5 10^3/uL (0.8-4.8) 12/12/23 21:48 [place] # (Auto) 1.0 10^3/uL (0.2-0.9) H 12/12/23 21:48 Eos # (Auto) 0.2 10^3/uL (0.0-0.8) 12/12/23 21:48 Baso # (Auto) 0.1 10^3/uL (0.0-0.1) 12/12/23 21:48 Nucleated RBC % (auto) 0 % 12/12/23 21:48 Nucleated RBCs # 0.0 /100WBC 12/12/23 21:48 Sodium 135 mmol/L (136-145) L 12/12/23 21:48 Potassium 4.4 mmol/L (3.5-5.1) 12/12/23 21:48 Chloride 100 mmol/L (98-107) 12/12/23 21:48 Carbon Dioxide 27 mmol/L (22-29) 12/12/23 21:48 Anion Gap 12.4 (5-19) 12/12/23 21:48 BUN 7 mg/dL (6-20) 12/12/23 21:48 Creatinine 0.7 mg/dL (0.7-1.2) 12/12/23 21:48 GFR Calculation 126.9 mL/min (90-130) 12/12/23 21:48 Glucose 97 mg/dL (65-115) 12/12/23 21:48 Calculated Osmolality 278 mOsm/kg (285-295) L 12/12/23 21:48 Calcium 8.8 mg/dL (8.5-10.5) 12/12/23 21:48 Troponin T Baseline < 6 ng/L (0-15) 12/12/23 21:48 Troponin T 120 Minute 6.00 ng/L (0-15) 12/12/23 23:39 Delta Troponin T 0.30291 ABS# (0-10) 12/12/23 23:39 Troponin T Hi Sens 6Hr 6.00 ng/L (0-15) 12/13/23 02:38 Troponin T Hi Sens 6Hr Delta 0.99558 ng/L (0-12) 12/13/23 02:38 Lipase 30 U/L (13-60) 12/13/23 02:38 XR interpretation done by ED provider, pending radiology final review Discharge Plan Discharge Patient Disposition: Home Clinical Impression: Chest pain Condition: Stable Prescriptions: New hydrocodone-acetaminophen 5-325 mg tablet 1 tab PO Q8H PRN (Reason: pain) Qty: 7 0RF No Action pantoprazole [Protonix] 40 mg tablet,delayed release (DR/EC) 80 mg PO DAILY aspirin [Children's Aspirin] 81 mg tablet,chewable 81 mg PO DAILY mirtazapine [Remeron] 30 mg tablet 30 mg PO .HS Qty: 30 1RF buspirone 10 mg tablet 10 mg PO BID Qty: 60 1RF atomoxetine 60 mg capsule 60 mg PO DAILY Qty: 30 1RF sertraline [Zoloft] 100 mg tablet 150 mg PO DAILY Qty: 45 1RF naltrexone 50 mg tablet 50 mg PO DAILY Qty: 30 1RF ipratropium bromide 21 mcg (0.03 %) spray,non-aerosol 2 spray INTRANASAL BID levocetirizine 5 mg tablet 5 mg PO DAILY tramadol 50 mg tablet 50 mg PO Q8H PRN (Reason: pain) Qty: 14 0RF Naprosyn 500 mg tablet 500 mg PO BID PRN (Reason: pain) Qty: 20 0RF folic acid 1 mg Tablet 1 mg PO DAILY Qty: 90 0RF thiamine mononitrate (vit B1) [Vitamin B-1 (mononitrate)] 100 mg Tablet 100 mg PO DAILY Qty: 90 0RF multivitamin with folic acid [Thera] 400 mcg Tablet 1 tab PO DAILY Qty: 90 0RF amlodipine 5 mg tablet 5 mg PO DAILY Qty: 90 0RF magnesium 250 mg tablet 250 mg PO DAILY Qty: 90 0RF potassium citrate 99 mg Capsule 99 mg PO DAILY lisinopril 10 mg tablet 20 mg PO DAILY Discharge Orders: Discharge ED (Routine); Ordered 12/13/23 Ordered By: Demetrio King Referrals: Mahamed Sales MD [Primary Care Provider] - 1-3 days Patient Instructions: Chest Pain (ED), Opioid Safety, Pain Management Activity Restrictions/Additional Instructions: Return for fever greater than 100, vomiting liquids or medications, other concerning symptoms. See your doctor this week. Coding Level of Care Code ED Warehouse Operations Associate for Marko Avery
[2023-12-13 03:53] VITALS: BP 120/74; PULSE 74; RESP 18; O2SAT 98
== END 2023-12-13 03:54 | disposition home or self-care (01) ==
PROVIDERS: Emergency Provider Emergency Medicine; PCP Family Medicine
DX: R07.9 Chest pain, unspecified (principal); Z79.82 Long term (current) use of aspirin; I10 Essential (primary) hypertension; Z72.0 Tobacco use
CPT/HCPCS: 36415; 71045; 80048; 83690; 84484; 85025; 93005; 99285

== ENCOUNTER 2023-12-22 23:06 | Inpatient (IN) | payer MEDICAID, SELFPAY ==
[2023-12-22 23:08] VITALS: BP 155/102; PULSE 107; RESP 26; TEMP 36.6; O2SAT 96
--- NOTE | 2023-12-22 23:23 | ED_ITS ---
Documented by User: MARLYN Davison 12/22/23 23:30 HPI - General Adult 2 General: Chief complaint: General Medical Stated complaint: right lung pain cough Time Seen by Provider: 12/22/23 23:12 Source: family Mode of arrival: ambulatory Limitations: no limitations History of Present Illness: Patient is a 38-year-old male presenting to the emergency department due to shortness of breath onset tonight. History is given primarily by family number as patient reportedly cannot speak due to the amount of shortness of breath he is having. Spouse states that he cracked his ribs near Easter time, and has dealt with spells of shortness of breath since. She states this is the worst episode, as he cannot take a deep breath due to the amount of pain over the area where he cracked his ribs. He states it is primarily on the right side, though now he was reporting some chest pain to the left chest area. No fevers noted, history of asthma or COPD, or other pertinent signs or symptoms at this time. Spouse does note that he has an albuterol inhaler at home that he uses as needed. MD complaint: Shortness of breath and chest pain Onset (ago): hour(s) Associated symptoms: Reports chest pain and dyspnea; Deny headache(s), nausea, rash, palpitations or vomiting Review of Systems 2 General: Reports: 10 or more systems reviewed and unremarkable except in HPI and below Const: Denies: fever(s), chills or fatigue Eyes: Denies: change in vision ENMT: Denies: throat pain, ear or mastoid pain or nasal discharge Card: Reports: chest pain; Denies: palpitations, swelling of feet/ankles or lightheadedness Resp: Reports: dyspnea and pain on inspiration; Denies: productive cough or wheezing GI: Denies: abdominal pain, nausea, vomiting, diarrhea or constipation : Denies: flank pain, difficulty urinating, dysuria or urinary frequency Musc: Denies: neck pain, back pain or joint pain Skin/Breast: Denies: rash Neuro: Denies: headache(s), numbness in extremities or weakness in extremities PFSH ED 2 PFSH: Medical History Generalized anxiety disorder History of ADHD Cannabis use disorder Psychiatric care Tobacco use Hypomagnesemia Hepatomegaly Transaminitis Alcohol intoxication Acute pancreatitis Alcoholism Esophagitis Alcohol intoxication Acute pancreatitis Pseudocyst of pancreas Polysubstance abuse History of suicide attempt C7 cervical fracture C2 cervical fracture L4 vertebral fracture Alcohol abuse PTSD (post-traumatic stress disorder) Elevated transaminase level Pancreatitis, alcoholic, acute Surgical History History of appendectomy History of splenectomy Family History Other Diabetes Social History Smoking and tobacco/nicotine status: current every day tobacco/nicotine user Alcohol intake: current Alcohol intake frequency: 3 or more drinks per day Alcohol type: hard liquor Substance/Drug Use: current Substance/Drug use frequency: daily Physical Exam 2 Const: COMMON NORMALS: patient oriented x3 and healthy appearing EXAM LIMITATIONS: physical limitations GENERAL APPEARANCE: in distress (Is not speaking due to his reported shortness of breath) ORIENTATION/CONSCIOUSNESS: Yes awake HENMT: COMMON NORMALS: normocephalic, atraumatic and moist oral mucous membranes HEAD & SCALP: normocephalic and atraumatic Eye: COMMON NORMALS: EOMs intact bilaterally and conjunctivae normal C ONJUNCTIVA: Yes conjunctivae normal Neck/C-Spine: COMMON NORMALS: full ROM and no lymphadenopathy Chest: COMMONS NORMALS: normal inspection of the chest Resp: EFFORT & INSPECTION: Yes symmetric chest movement, Yes tachypneic, Yes decreased respiratory effort and Yes uses accessory muscles AUSCULTATION: w heezes expiratory wheezes and throughout Cardio: COMMON NORMALS: regular rhythm, No gallops present (Cardio), No murmurs present (Cardio) and No rub (Cardio) RATE: tachycardic RHYTHM: r egular rhythm GI: COMMON NORMALS: Normal to inspection, nondistended, normoactive bowel sounds present, Soft to palpation and non-tender PALPATION: Yes Soft to palpation Extremity: COMMON NORMALS: normal to inspection, full ROM, no joint enlargement and no clubbing, cyanosis or edema Neuro: COMMON NORMALS: patient oriented x3, moves all extremities, no focal motor deficits and no sensory deficits noted Psych: COMMON NORMALS: mental status grossly normal Skin: COMMON NORMALS: no rashes or lesions noted GENERAL SKIN EXAM: no rashes or lesions noted Course 2 Vital Signs: Vital signs: Vital Signs Temperature 98.3 F 12/23/23 19:54 Pulse Rate 94 12/23/23 19:54 Respiratory Rate 17 12/23/23 19:54 Blood Pressure 142/88 12/23/23 19:54 Pulse Oximetry 97 12/23/23 19:52 Oxygen Delivery Me thod Room Air 12/23/23 16:33 Oxygen Flow Rate 2 12/23/23 01:59 Fraction of Inspir ed Oxygen 21 12/23/23 03:55 [facility] - General Adult Lab Data 12/22/23 23:21 12/22/23 23:21 Radiology Impressions Chest/Abdomen/Pelvis CT 12/23/23 12:10 IMPRESSION: No acute findings. IMPRESSION: Inflammatory changes centered in the right upper quadrant, concerning for pancreatitis, complicated by pseudocysts in the pancreatic head and pancreatic body, and right perihepatic fluid collection. Secondary inflammatory changes of the duodenal and gallbladder wall noted. Additional less likely diagnostic consideration includes cholecystitis with wall perforation and perihepatic fluid collection. ADDENDUM: 12/23/23 0126 IMPRESSION: 1. No acute findings. 2. No subpleural nodule along the anterior aspect of the right upper lobe. Stable subpleural nodules in the right upper and lower lobes. Recommend IMPRESSION: Inflammatory changes centered in the right upper quadrant, concerning for pancreatitis, complicated by pseudocysts in the pancreatic head and pancreatic body, and right perihepatic fluid collection. Secondary inflammatory changes of the duodenal and gallbladder wall noted. Additional less likely diagnostic consideration includes cholecystitis with wall perforation and perihepatic fluid collection. REFERENCES: 1. Yony H, et al. Guidelines for Management of Incidental Pulmonary Nodules Detected on CT Images: From the Fleischner Society 2017. Radiology. 2017;284(1):228-243. 2. Umer J, et al. Updated Fleischner Society Guidelines for Managing Incidental Pulmonary Nodules: Common Questions and Challenging Scenarios. Radiographics. 2018;38(5):0345-6356. Laboratory Results WBC 14.57 10^3/uL (3.29-11.43) H 12/22/23 23:21 RBC 4.64 10^6/uL (3.85-5.65) 12/22/23 23:21 Hgb 15.40 g/dL (11.27-16.99) 12/22/23 23:21 Hct 44.7 % (37-53) 12/22/23 23:21 MCV 96.3 fl (82-101) 12/22/23 23:21 MCH 33.2 pg (27-33) H 12/22/23 23:21 MCHC 34.5 g/dL (30-55) 12/22/23 23:21 RDW 14.6 % (12.1-15.1) 12/22/23 23:21 Plt Count 420 10^3/cmm (157-399) H 12/22/23 23:21 MPV 8.8 fL (7.4-10.4) 12/22/23 23:21 Neut % (Auto) 48.4 % 12/22/23 23:21 Lymph % (Auto) 38.8 % 12/22/23 23:21 [place] % (Auto) 8.2 % 12/22/23 23:21 Eos % (Auto) 3.4 % 12/22/23 23:21 Baso % (Auto) 0.9 % 12/22/23 23:21 Neut # (Auto) 7.07 10^3/uL (1.8-7.7) 12/22/23 23:21 Lymph # (Auto) 5.7 10^3/uL (0.8-4.8) H 12/22/23 23:21 [place] # (Auto) 1.2 10^3/uL (0.2-0.9) H 12/22/23 23:21 Eos # (Auto) 0.5 10^3/uL (0.0-0.8) 12/22/23 23:21 Baso # (Auto) 0.1 10^3/uL (0.0-0.1) 12/22/23 23:21 Nucleated RBC % (auto) 0 % 12/22/23 23:21 Nucleated RBCs # 0.0 /100WBC 12/22/23 23:21 PT 12.90 SECONDS (12.1-14.9) 12/22/23 23:21 INR 0.94 (0.8-1.2) 12/22/23 23:21 APTT 23.5 SECONDS (23.9-36.7) L 12/22/23 23:21 Sodium 135 mmol/L (136-145) L 12/22/23 23:21 Potassium 3.5 mmol/L (3.5-5.1) 12/22/23 23:21 Chloride 101 mmol/L (98-107) 12/22/23 23:21 Carbon Dioxide 21 mmol/L (22-29) L 12/22/23 23:21 Anion Gap 16.5 (5-19) 12/22/23 23:21 BUN 8 mg/dL (6-20) 12/22/23 23:21 Creatinine 0.7 mg/dL (0.7-1.2) 12/22/23 23:21 GFR Calculation 126.9 mL/min (90-130) 12/22/23 23:21 Glucose 141 mg/dL (65-115) H 12/22/23 23:21 Calculated Osmolality 281 mOsm/kg (285-295) L 12/22/23 23:21 Lactic Acid 1.9 mmol/L (0.5-2.2) 12/22/23 23:21 Calcium 8.6 mg/dL (8.5-10.5) 12/22/23 23:21 Total Bilirubin 0.5 mg/dL (0.15-1.2) 12/22/23 23:21 AST 51 U/L (0-40) H 12/22/23 23:21 ALT 71 U/L (0-41) H 12/22/23 23:21 Alkaline Phosphatase 191 U/L (40-130) H 12/22/23 23:21 Troponin T Baseline < 6 ng/L (0-15) 12/22/23 23:21 C-Reactive Protein 7.3 mg/L (0.0-4.9) H 12/22/23 23:21 Total Protein 6.7 g/dL (6.6-8.7) 12/22/23 23:21 Albumin 3.7 g/dL (3.5-5.2) 12/22/23 23:21 Globulin 3.0 g/dL (1.3-4.6) 12/22/23 23:21 Lipase 130 U/L (13-60) H 12/22/23 23:21 Influenza Type A Ag Negative (Negative) 12/22/23 23:31 Influenza Type B Ag Negative (Negative) 12/22/23 23:31 Discharge Plan Discharge Patient Disposition: Admitted As Inpatient Admit Provider: Anni Fleming Clinical Impression: Acute pancreatitis, Acute chest wall pain, Alcohol abuse Condition: Stable Coding Level of Care Code ED Property Clerk for Chg Fwd Documented by User: Christopher Hutton DO 12/23/23 21:22 HPI - General Adult 2 General: Chief complaint: General Medical Stated complaint: right lung pain cough Time Seen by Provider: 12/22/23 23:12 PFS ED 2 PFSH: Medical History Generalized anxiety disorder History of ADHD Cannabis use disorder Psychiatric care Tobacco use Hypomagnesemia Hepatomegaly Transaminitis Alcohol intoxication Acute pancreatitis Alcoholism Esophagitis Alcohol intoxication Acute pancreatitis Pseudocyst of pancreas Polysubstance abuse History of suicide attempt C7 cervical fracture C2 cervical fracture L4 vertebral fracture Alcohol abuse PTSD (post-traumatic stress disorder) Elevated transaminase level Pancreatitis, alcoholic, acute Surgical History History of appendectomy History of splenectomy Family History Other Diabetes Social History Smoking and tobacco/nicotine status: current every day tobacco/nicotine user Alcohol intake: current Alcohol intake frequency: 3 or more drinks per day Alcohol type: hard liquor Substance/Drug Use: current Substance/Drug use frequency: daily Course 2 Vital Signs: Vital signs: Vital Signs Temperature 98.3 F 12/23/23 19:54 Pulse Rate 94 12/23/23 19:54 Respiratory Rate 17 12/23/23 19:54 Blood Pressure 142/88 12/23/23 19:54 Pulse Oximetry 97 12/23/23 19:52 Oxygen Delivery Me thod Room Air 12/23/23 16:33 Oxygen Flow Rate 2 12/23/23 01:59 Fraction of Inspir ed Oxygen 21 12/23/23 03:55 MDM - General Adult Medical Decision Making Patient transferred over to [place] at shift change, reviewed lab work showed white count of 14,000, liver enzymes very slightly elevated with bilirubin was normal, lipase mildly elevated at 130, CT scan of the chest abdomen pelvis showed findings consistent with pancreatitis with pseudocyst and perihepatic pancreatic fluid but also consideration of cholecystitis with wall perforation, talked with Dr. Galarza he says more than likely this is pancreatitis because the patient has a history of it and not perforated cholecystitis. We will be keep the person n.p.o. put him on normal saline at 150 cc an hour and get an official consult and admit to the hospitalist. Discussed the case with Dr. Fleming who agreed to admit the patient for further evaluation and treatment. Medical Records I reviewed the patient's medical records. Lab Data I reviewed the patient's lab results. 12/22/23 23:21 12/22/23 23:21 Radiology Impressions Chest/Abdomen/Pelvis CT 12/23/23 12:10 IMPRESSION: No acute findings. IMPRESSION: Inflammatory changes centered in the right upper quadrant, concerning for pancreatitis, complicated by pseudocysts in the pancreatic head and pancreatic body, and right perihepatic fluid collection. Secondary inflammatory changes of the duodenal and gallbladder wall noted. Additional less likely diagnostic consideration includes cholecystitis with wall perforation and perihepatic fluid collection. ADDENDUM: 12/23/23 0126 IMPRESSION: 1. No acute findings. 2. No subpleural nodule along the anterior aspect of the right upper lobe. Stable subpleural nodules in the right upper and lower lobes. Recommend IMPRESSION: Inflammatory changes centered in the right upper quadrant, concerning for pancreatitis, complicated by pseudocysts in the pancreatic head and pancreatic body, and right perihepatic fluid collection. Secondary inflammatory changes of the duodenal and gallbladder wall noted. Additional less likely diagnostic consideration includes cholecystitis with wall perforation and perihepatic fluid collection. REFERENCES: 1. Yony H, et al. Guidelines for Management of Incidental Pulmonary Nodules Detected on CT Images: From the Fleischner Society 2017. Radiology. 2017;284(1):228-243. 2. Owusu J, et al. Updated Fleischner Society Guidelines for Managing Incidental Pulmonary Nodules: Common Questions and Challenging Scenarios. Radiographics. 2018;38(5):5000-6843. Laboratory Results WBC 14.57 10^3/uL (3.29-11.43) H 12/22/23 23:21 RBC 4.64 10^6/uL (3.85-5.65) 12/22/23 23:21 Hgb 15.40 g/dL (11.27-16.99) 12/22/23 23:21 Hct 44.7 % (37-53) 12/22/23 23:21 MCV 96.3 fl (82-101) 12/22/23 23:21 MCH 33.2 pg (27-33) H 12/22/23 23:21 MCHC 34.5 g/dL (30-55) 12/22/23 23:21 RDW 14.6 % (12.1-15.1) 12/22/23 23:21 Plt Count 420 10^3/cmm (157-399) H 12/22/23 23:21 MPV 8.8 fL (7.4-10.4) 12/22/23 23:21 Neut % (Auto) 48.4 % 12/22/23 23:21 Lymph % (Auto) 38.8 % 12/22/23 23:21 Trego % (Auto) 8.2 % 12/22/23 23:21 Eos % (Auto) 3.4 % 12/22/23 23:21 Baso % (Auto) 0.9 % 12/22/23 23:21 Neut # (Auto) 7.07 10^3/uL (1.8-7.7) 12/22/23 23:21 Lymph # (Auto) 5.7 10^3/uL (0.8-4.8) H 12/22/23 23:21 [place] # (Auto) 1.2 10^3/uL (0.2-0.9) H 12/22/23 23:21 Eos # (Auto) 0.5 10^3/uL (0.0-0.8) 12/22/23 23:21 Baso # (Auto) 0.1 10^3/uL (0.0-0.1) 12/22/23 23:21 Nucleated RBC % (auto) 0 % 12/22/23 23:21 Nucleated RBCs # 0.0 /100WBC 12/22/23 23:21 PT 12.90 SECONDS (12.1-14.9) 12/22/23 23:21 INR 0.94 (0.8-1.2) 12/22/23 23:21 APTT 23.5 SECONDS (23.9-36.7) L 12/22/23 23:21 Sodium 135 mmol/L (136-145) L 12/22/23 23:21 Potassium 3.5 mmol/L (3.5-5.1) 12/22/23 23:21 Chloride 101 mmol/L (98-107) 12/22/23 23:21 Carbon Dioxide 21 mmol/L (22-29) L 12/22/23 23:21 Anion Gap 16.5 (5-19) 12/22/23 23:21 BUN 8 mg/dL (6-20) 12/22/23 23:21 Creatinine 0.7 mg/dL (0.7-1.2) 12/22/23 23:21 GFR Calculation 126.9 mL/min (90-130) 12/22/23 23:21 Glucose 141 mg/dL (65-115) H 12/22/23 23:21 Calculated Osmolality 281 mOsm/kg (285-295) L 12/22/23 23:21 Lactic Acid 1.9 mmol/L (0.5-2.2) 12/22/23 23:21 Calcium 8.6 mg/dL (8.5-10.5) 12/22/23 23:21 Total Bilirubin 0.5 mg/dL (0.15-1.2) 12/22/23 23:21 AST 51 U/L (0-40) H 12/22/23 23:21 ALT 71 U/L (0-41) H 12/22/23 23:21 Alkaline Phosphatase 191 U/L (40-130) H 12/22/23 23:21 Troponin T Baseline < 6 ng/L (0-15) 12/22/23 23:21 C-Reactive Protein 7.3 mg/L (0.0-4.9) H 12/22/23 23:21 Total Protein 6.7 g/dL (6.6-8.7) 12/22/23 23:21 Albumin 3.7 g/dL (3.5-5.2) 12/22/23 23:21 Globulin 3.0 g/dL (1.3-4.6) 12/22/23 23:21 Lipase 130 U/L (13-60) H 12/22/23 23:21 Influenza Type A Ag Negative (Negative) 12/22/23 23:31 Influenza Type B Ag Negative (Negative) 12/22/23 23:31 All radiology interpretation(s) finalized by discharge Discharge Plan Discharge Patient Disposition: Admitted As Inpatient Admit Provider: Anni Fleming Clinical Impression: Acute pancreatitis, Acute chest wall pain, Alcohol abuse Condition: Stable Coding Level of Care Code ED Property Clerk for Marko Avery
--- NOTE | 2023-12-22 23:23 | ECG_ITS ---
[facility] Test Date: 2023-12-22 Pat Name: Elena Hernandez Department: Room: Gender: Male [employer]: : 1985 Requested By: Harry Green Order Number: [id number] Boni MD: Adrian Pearson M.D. Measurements Intervals [place] Rate: 103 P: 151 IA: 149 QRS: 165 QRSD: 91 T: 174 QT: 356 QTc: 468 Interpretive Statements SINUS TACHYCARDIA ARM LEADS REVERSED [INVERTED P AND QRS IN I] ABNORMAL RHYTHM ECG Compared to ECG 12/12/2023 20:30:41 Sinus rhythm no longer present Electronically Signed On 12-23-2023 0:25:53 CDT by Adrian Pearson M.D. [id number]
[2023-12-22] MEDS: sodium chloride 0.9% 1,000 ML 999 ML IV (23:26)
[2023-12-22] MEDS: methylPREDNISolone sod succ 125 mg/2 mL INJ IVP (23:27)
[2023-12-22 23:28] LABS: Basophils # 0.1 10^3/uL (0.0-0.1); Basophils % 0.9 %; Eosinophils # 0.5 10^3/uL (0.0-0.8); Eosinophils % 3.4 %; Hematocrit 44.7 % (37-53); Lymphocytes # 5.7 10^3/uL (0.8-4.8); Lymphocytes % 38.8 %; Mean Corpuscular HGB Conc 34.5 g/dL (30-55); Mean Corpuscular Hemoglobin 33.2 pg (27-33); Mean Corpuscular Volume 96.3 fl (82-101); Mean Platelet Volume 8.8 fL (7.4-10.4); Monocytes # 1.2 10^3/uL (0.2-0.9); Monocytes % 8.2 %; Neutrophils # 7.07 10^3/uL (1.8-7.7); Neutrophils % 48.4 %; Nucleated Red Blood Cells % 0 %; Platelet Count 420 10^3/cmm (157-399); Red Blood Count 4.64 10^6/uL (3.85-5.65); Red Cell Distribution Width 14.6 % (12.1-15.1); White Blood Count 14.57 10^3/uL (3.29-11.43)
[2023-12-22] MEDS: ketorolac 60 mg/2 mL INJ 30 MG IVP (23:29)
[2023-12-22 23:36] VITALS: BP 151/101; PULSE 133; RESP 26; O2SAT 92
[2023-12-22] MEDS: iohexol 350 mg/mL 500 mL Btl (per mL) IV (23:42)
[2023-12-22 23:50] LABS: Troponin(5th) Baseline < 6 ng/L (0-15)
[2023-12-22 23:53] LABS: Alanine Aminotransferase 71 U/L (0-41); Albumin Level 3.7 g/dL (3.5-5.2); Alkaline Phosphatase 191 U/L (40-130); Aspartate Amino Transferase 51 U/L (0-40); Blood Urea Nitrogen 8 mg/dL (6-20); C Reactive Protein 7.3 mg/L (0.0-4.9); Calcium 8.6 mg/dL (8.5-10.5); Carbon Dioxide 21 mmol/L (22-29); Chloride 101 mmol/L (98-107); Creatinine Clr Calc Pharmacy 163.5248; Glomerular Filtration Rate 126.9 mL/min (90-130); Glucose 141 mg/dL (65-115); Osmolality Calculated 281 mOsm/kg (285-295); Sodium 135 mmol/L (136-145); Total Bilirubin 0.5 mg/dL (0.15-1.2); Total Protein 6.7 g/dL (6.6-8.7)
[2023-12-22 23:56] LABS: Anion Gap 16.5 (5-19); Potassium 3.5 mmol/L (3.5-5.1)
[2023-12-23] VITALS (21 sets, daily range): BP systolic 105–148; BP diastolic 67–102; PULSE 74–103; RESP 16–22; TEMP 36.4–36.8; O2SAT 93–98; BMI 26.7
[2023-12-23 00:01] LABS: Slide Review Slide Review Perform
[2023-12-23] MEDS: ipratropium-albuterol 3 mL Neb INHALATION (00:02)
[2023-12-23 00:07] LABS: Influenza A by IFA Negative (Negative); Influenza B by IFA Negative (Negative)
[2023-12-23 00:17] LABS: Lipase 130 U/L (13-60)
[2023-12-23 00:22] LABS: INR 0.94 (0.8-1.2); Partial Thromboplastin Time 23.5 SECONDS (23.9-36.7)
--- NOTE | 2023-12-23 00:52 | PC.NURSE ---
Patients oxygen sats 86% for several minutes. Pt placed on 2l via n/c with sat improvement to 92%. Peter CLINE notified.
[2023-12-23] MEDS: morphine 4 mg/mL SDV 1 mL IVP ×2 (00:58→02:12)
[2023-12-23 01:45] LABS: Lactic Sepsis W/Reflex 1.9 mmol/L (0.5-2.2)
[2023-12-23] MEDS: sodium chloride 0.9% 1,000 ML 150 ML IV ×3 (02:02→15:18)
--- NOTE | 2023-12-23 02:19 | P.HP_ITS ---
Providers/Chief Complaint 2 Primary Care Provider: Mahamed Sales MD Chief Complaint: right lung pain cough sob History of Present Illness Elena Hernandez is a 38 year old male with past medical history of substance abuse, ADHD, generalized anxiety disorder, alcoholism, recurrent pancreatitis presented to the hospital today with complaint of abdominal pain and pleuritic chest pain. He has previous rib fractures from 2017. Patient has chronic pain. Denies nausea vomiting diarrhea. In the ER there was question of shortness of breath however when seen patient is on room air saturating 97%. CT chest abdomen pelvis was done which showed Inflammatory changes centered in the right upper quadrant, concerning for pancreatitis, complicated by pseudocysts in the pancreatic head and pancreatic body, and right perihepatic fluid collection. Secondary inflammatory changes of the duodenal and gallbladder wall noted. Additional less likely diagnostic consideration includes cholecystitis with wall perforation and perihepatic fluid collection. Lipase 130, WBC 14.57, lactic acid normal, C-reactive protein 7.3, alkaline phosphatase 191, total bilirubin 1.5. Influenza negative. General surgery was contacted and will see patient in consultation. Patient made n.p.o. IV fluids started. He states he has an appointment with gastroenterology coming up in [place] the next few weeks. Says pain is uncontrolled with morphine. He would like something stronger. Medications/Allergies Home Medications Medication Instructions Recorded Confirmed Last Taken Type amlodipine 5 mg tablet 5 mg PO DAILY #90 tabs 03/03/23 11/17/23 10/30/23 Rx folic acid 1 mg tablet 1 mg PO DAILY #90 tabs 03/03/23 11/17/23 10/30/23 Rx magnesium 250 mg tablet 250 mg PO DAILY #90 tabs 03/03/23 11/17/23 10/30/23 Rx multivitamin with folic acid 400 1 tab PO DAILY #90 tabs 03/03/23 11/17/23 10/30/23 Rx mcg tablet (Thera) thiamine mononitrate (vit B1) 100 100 mg PO DAILY #90 tabs 03/03/23 11/17/23 10/30/23 Rx mg tablet (Vitamin B-1 (mononitrate)) pantoprazole 40 mg tablet,delayed 80 mg PO DAILY 05/25/23 11/17/23 10/30/23 History release (Protonix) aspirin 81 mg chewable tablet 81 mg PO DAILY 1111/17/23 10/30/23 History (Children's Aspirin) potassium citrate 99 mg capsule 99 mg PO DAILY 10/06/23 11/17/23 10/30/23 History ipratropium bromide 21 mcg (0.03 2 spray intranasal BID 10/31/23 11/17/23 10/30/23 History %) nasal spray levocetirizine 5 mg tablet 5 mg PO DAILY 10/31/23 11/17/23 10/30/23 History tramadol 50 mg tablet 50 mg PO Q8H PRN pain #14 tabs 10/31/23 11/17/23 Unknown Rx naproxen 500 mg tablet (Naprosyn) 500 mg PO BID PRN pain #20 tabs 11/10/23 11/17/23 Unknown Rx atomoxetine 60 mg capsule 60 mg PO DAILY #30 caps 11/17/23 11/17/23 Unknown Rx buspirone 10 mg tablet 10 mg PO BID #60 tabs 11/17/23 11/17/23 Unknown Rx lisinopril 10 mg tablet 20 mg PO DAILY 11/17/23 11/17/23 Unknown History mirtazapine 30 mg tablet (Remeron) 30 mg PO .HS #30 tabs 11/17/23 11/17/23 Unknown Rx naltrexone 50 mg tablet 50 mg PO DAILY #30 tabs 11/17/23 11/17/23 Unknown Rx sertraline 100 mg tablet (Zoloft) 150 mg (1.5 x 100 mg) PO DAILY #45 11/17/23 11/17/23 Unknown Rx tabs hydrocodone 5 mg-acetaminophen 325 1 tab PO Q8H PRN pain #7 tabs 12/13/23 Unknown Rx mg tablet Allergies Allergy/AdvReac Type Severity Reaction Status Date / Time No Known Allergies Allergy Verified 12/22/23 23:10 PFSH Acute 2 PFSH: Medical History Generalized anxiety disorder History of ADHD Cannabis use disorder Psychiatric care Tobacco use Hypomagnesemia Hepatomegaly Transaminitis Alcohol intoxication Acute pancreatitis Alcoholism Esophagitis Alcohol intoxication Acute pancreatitis Pseudocyst of pancreas Polysubstance abuse History of suicide attempt C7 cervical fracture C2 cervical fracture L4 vertebral fracture Alcohol abuse PTSD (post-traumatic stress disorder) Elevated transaminase level Pancreatitis, alcoholic, acute Surgical History History of appendectomy History of splenectomy Family History Other Diabetes Social History Smoking and tobacco/nicotine status: current every day tobacco/nicotine user Alcohol intake: current Alcohol intake frequency: 3 or more drinks per day Alcohol type: hard liquor Substance/Drug Use: current Substance/Drug use frequency: daily Vitals/I&O/Wt Last Vital Signs Temp 97.8 F 12/22/23 23:08 Pulse 83 12/23/23 01:59 Resp 16 12/23/23 02:12 BP 130/83 12/23/23 01:59 Pulse Ox 93 12/23/23 01:59 O2 Del Method Nasal Cannula 12/23/23 01:59 O2 Flow Rate 2 12/23/23 01:59 12/22/23 12/22/23 12/23/23 14:59 22:59 06:59 Intake Total 1000 / 1000 Balance 1000 / 1000 Weight last 48 hrs Weight 87.09 kg Physical Exam 2 Narrative: General: Alert oriented x3, patient seen laying in bed. No acute respiratory distress. HEENT: Normocephalic, atraumatic, EOMI, breathing room air. Cardio: Regular rate rhythm, normal S1-S2 Respiratory: Clear to auscultation bilaterally GI: Abdomen soft, mildly tender in epigastric area and right upper quadrant area, bowel sounds +, no apparent guarding present. Extremities: No edema. Data 12/22/23 23:21 12/22/23 23:21 A&P Assessment and plan (1) Generalized anxiety disorder: (2) Acute pancreatitis: Qualifiers: Acute pancreatitis complication: no infection or necrosis Pancreatitis type: unspecified pancreatitis type Qualified Code(s): K85.90 - Acute pancreatitis without necrosis or infection, unspecified (3) Tobacco use: (4) Atypical chest pain: (5) Abdominal pain: Qualifiers: Abdominal location: unspecified location Qualified Code(s): R10.9 - Unspecified abdominal pain (6) Thickening of wall of gallbladder: Plan #Acute pancreatitis #Possible cholecystitis #Perihepatic fluid collections #History of pseudocyst #History of alcohol abuse #History of polysubstance abuse #History of rib fractures -Keep patient n.p.o. ? Lipase 130 on admission. -IV fluid normal saline at 150 cc an hour. ? Patient does not want any upcoming [place] with gastroenterology. ? CT chest from pelvis shows Inflammatory changes centered in the right upper quadrant, concerning for pancreatitis, complicated by pseudocysts in the pancreatic head and pancreatic body, and right perihepatic fluid collection. Secondary inflammatory changes of the duodenal and gallbladder wall noted. Additional less likely diagnostic consideration includes cholecystitis with wall perforation and perihepatic fluid collection. ? General surgery consulted. It is highly unlikely that gallbladder has a perforation ? Placed on Zosyn empirically -Pain control with morphine alternating with dilaudid -Monitor for improvement with IV fluids, supportive management. -Will check lipid profile, TG -Continue on thiamine folic acid daily - Monitor electrolytes - Check magnesium level Full Code SCDS, Heparin subc BID Attestations 2 Medical Necessity Statement*: Greater than 2 midnight stay for management of acute pancreatitis, possible cholecystitis Diagnoses Generalized anxiety disorder F41.1 Acute pancreatitis K85.90 Acute pancreatitis complication: no infection or necrosis Pancreatitis type: unspecified pancreatitis type Tobacco use Z72.0 Atypical chest pain R07.89 Abdominal pain R10.9 Abdominal location: unspecified location Thickening of wall of gallbladder K82.8
[2023-12-23] MEDS: piperacillin-tazobactam 3.375 GM in sodium chloride 0.9% (plus) 50 ML IV ×3 (03:31→19:47)
[2023-12-23 04:11] LABS: C Reactive Protein 9.4 mg/L (0.0-4.9)
[2023-12-23 04:18] LABS: Procalcitonin 0.11 ng/mL (0-0.5)
[2023-12-23 04:51] LABS: Add Urine Culture? No; Add Urine Microscopic? YES; Bilirubin Urine Neg (Negative); Blood Urine Neg (Negative); Glucose Urine UA Norm (Normal); Ketones Urine Negative (Negative); Leukocyte Esterase Urine Negative (Negative); Nitrate Urine Negative (Negative); Protein Urine Trace (Negative); Specific Gravity, Urine 1.001 (1.005-1.030); Squamous Epithelial Cell Urine 0-4 /hpf (0-5); Urine Appearance Clear (CLEAR); Urine Color Yellow (Yellow); Urobilinogen Urine 1 mg/dL (Negative); pH Urine 7 (5-7)
[2023-12-23] MEDS: pantoprazole 40 mg SDV IVP (05:33)
[2023-12-23] MEDS: heparin 5,000 unit/mL INJ 1 mL 5000 UNIT SUBCUT ×2 (05:43→18:17)
[2023-12-23] MEDS: HYDROmorphone 1 mg/mL INJ 1 mL IVP ×4 (06:04→19:47)
[2023-12-23] MEDS: morphine 4 mg/mL SDV 1 mL 2 MG IVP ×4 (08:18→22:12)
--- NOTE | 2023-12-23 08:49 | PC.PHAR ---
LIFE [employer]NER TAKES CARE OF PT MEDICATIONS. DID NOT ANSWER PHONE, SO LEFT MESSAGE. 8:49AM 12/23/23
--- NOTE | 2023-12-23 09:59 | PM.MISC ---
Miscellaneous Note Note: Patient was resting comfortably No active abdominal pain endorsed by the patient Abdomen is tense, I did not appreciate local peritonitis signs, multiple skin tattoos, surgical scar I did bluntly tell the patient that in case his white count starts trending up and his temperature goes above 100.4 we probably have to seek transfer for possible necrotic pancreatitis IR guided drainage there is a lot of fluid buildup around perihepatic area and in the pelvis with pseudocyst for now white count is 14,000 he is afebrile continue Zosyn along opioid His last alcoholic drink was yesterday, he drinks 1 pint of whiskey every day Mildly abnormal transaminases, May advance diet to clears today if abdominal exams is benign and he is not experiencing nausea
--- NOTE | 2023-12-23 12:10 | CTR_ITS ---
PROCEDURE INFORMATION: Exam: CT Chest With Contrast; Diagnostic Exam date and time: 12/22/2023 11:52 PM Age: 38 years old Clinical indication: Chest pain/sob/hx of fractured ribs TECHNIQUE: Imaging protocol: Diagnostic computed tomography of the chest with contrast. Radiation optimization: All CT scans at this facility use at least one of these dose optimization techniques: automated exposure control; mA and/or kV adjustment per patient size (includes targeted exams where dose is matched to clinical indication); or iterative reconstruction. Contrast material: OMNI 350; Contrast volume: 175 ml; Contrast route: INTRAVENOUS (IV); COMPARISON: CR (CHEST, ) 12/13/2023 2:11 AM RADIATION DOSE METRICS: Total DLP (mGy-cm): 626.6 FINDINGS: Lungs: Streaky bilateral atelectasis noted. No consolidation. Pleural spaces: Unremarkable. No pneumothorax. No pleural effusion. Heart: Unremarkable. No cardiomegaly. No pericardial effusion. Lymph nodes: Unremarkable. No enlarged lymph nodes. Vasculature: Unremarkable. No aortic aneurysm. Bones/joints: Unremarkable. No acute fracture. Soft tissues: Unremarkable. PROCEDURE INFORMATION: Exam: CT Abdomen And Pelvis With Contrast Exam date and time: 12/22/2023 11:52 PM Age: 38 years old Clinical indication: Chest pain/sob/hx of fractured ribs TECHNIQUE: Imaging protocol: Computed tomography of the abdomen and pelvis with contrast. Radiation optimization: All CT scans at this facility use at least one of these dose optimization techniques: automated exposure control; mA and/or kV adjustment per patient size (includes targeted exams where dose is matched to clinical indication); or iterative reconstruction. Contrast material: OMNI 350; Contrast volume: 175 ml; Contrast route: INTRAVENOUS (IV); COMPARISON: CT abdomen pelvis w con* [id number] 01/09/2023 5:55 PM RADIATION DOSE METRICS: Total DLP (mGy-cm): 888.6 FINDINGS: Lungs: There are subpleural nodules along the anterior aspect of the right upper lobe and posterosuperior aspect of the right lower lobe, the largest measuring 0.7 cm (series 3, image 29). Liver: There is a geographic area of decreased attenuation along the posterior aspect of the liver, which may represent fatty infiltration or changes in perfusion due to inflammation. No discrete mass identified. Patent hepatic vasculature. Gallbladder and bile ducts: See Pancreas finding. Pancreas: There is stranding of the fat surrounding the pancreatic head and extending along the right subhepatic region, in association with small amount of fluid extending along the right anterior pararenal space and paracolic gutter, and fluid collections, including new right perihepatic fluid collection measuring approximately 13 x 14 x 2 cm, new fluid collection in the pancreatic head measuring 1.7 cm, and interval decrease in size of previously identified fluid collection in the pancreatic body measuring 3.6 cm. Secondary inflammatory changes of the proximal duodenal wall and gallbladder wall noted. Spleen: Normal. No splenomegaly. Adrenal glands: Normal. No mass. Kidneys and ureters: Normal. No hydronephrosis. Stomach and bowel: See Pancreas finding. No obstruction. Appendix: No evidence of appendicitis. Intraperitoneal space: Unremarkable. No free air. No significant fluid collection. Vasculature: Unremarkable. No abdominal aortic aneurysm. Lymph nodes: Unremarkable. No enlarged lymph nodes. Urinary bladder: Unremarkable as visualized. Reproductive: Unremarkable as visualized. Bones/joints: Old fracture deformity and ORIF hardware of the right clavicle noted. Degenerative changes of the spine seen. Soft tissues: Small fat containing inguinal hernias are seen bilaterally. CT/CT chest abdpel w/*[id number] IMPRESSION: No acute findings. IMPRESSION: Inflammatory changes centered in the right upper quadrant, concerning for pancreatitis, complicated by pseudocysts in the pancreatic head and pancreatic body, and right perihepatic fluid collection. Secondary inflammatory changes of the duodenal and gallbladder wall noted. Additional less likely diagnostic consideration includes cholecystitis with wall perforation and perihepatic fluid collection.
[2023-12-23] MEDS: dextrose 5%-lactated ringers 1,000 ML 125 ML IV ×2 (17:01→23:51)
[2023-12-24] VITALS (19 sets, daily range): BP systolic 134–171; BP diastolic 73–125; PULSE 77–110; RESP 16–19; TEMP 36.6–36.8; O2SAT 79–99
[2023-12-24] MEDS: HYDROmorphone 1 mg/mL INJ 1 mL IVP ×4 (00:21→19:48)
--- NOTE | 2023-12-24 01:29 | ECG_ITS ---
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 Measurements Intervals [place] Rate: 90 P: 42 WV: 145 QRS: 45 QRSD: 94 T: 32 QT: 390 QTc: 479 Interpretive Statements SINUS RHYTHM MINIMAL ST DEPRESSION [0.025+ mV ST DEPRESSION] Compared to ECG 12/22/2023 23:28:41 ST (T wave) deviation now present Sinus tachycardia no longer present Electronically Signed On 12-24-2023 17:10:34 CDT by Jamal Godwin M.D. [id number]
[2023-12-24] MEDS: diphenhydrAMINE 50 mg/mL SDV 1mL 25 MG IVP (01:56)
[2023-12-24] MEDS: methylPREDNISolone sod succ 40 mg/mL INJ IVP (01:56)
--- NOTE | 2023-12-24 02:17 | PC.RESP ---
RT called to assess patient for allergic reaction patient lungs and upper air clear all vitals are stable. no treatment indicated at this time.
[2023-12-24 02:41] LABS: Basophils # 0.1 10^3/uL (0.0-0.1); Basophils % 0.3 %; Eosinophils # 0.1 10^3/uL (0.0-0.8); Eosinophils % 0.3 %; Hematocrit 39.6 % (37-53); Lymphocytes # 6.1 10^3/uL (0.8-4.8); Lymphocytes % 31.7 %; Mean Corpuscular HGB Conc 34.6 g/dL (30-55); Mean Corpuscular Hemoglobin 33.3 pg (27-33); Mean Corpuscular Volume 96.4 fl (82-101); Mean Platelet Volume 8.9 fL (7.4-10.4); Monocytes # 1.4 10^3/uL (0.2-0.9); Monocytes % 7.3 %; Neutrophils # 11.53 10^3/uL (1.8-7.7); Nucleated Red Blood Cells % 0 %; Platelet Count 352 10^3/cmm (157-399); Red Blood Count 4.11 10^6/uL (3.85-5.65); Red Cell Distribution Width 14.5 % (12.1-15.1); White Blood Count 19.17 10^3/uL (3.29-11.43)
[2023-12-24 03:00] LABS: Troponin T (5th) Once 7 ng/L (0-15)
[2023-12-24 03:02] LABS: Alanine Aminotransferase 50 U/L (0-41); Albumin Level 3.2 g/dL (3.5-5.2); Alkaline Phosphatase 149 U/L (40-130); Anion Gap 12.6 (5-19); Aspartate Amino Transferase 42 U/L (0-40); Blood Urea Nitrogen 8 mg/dL (6-20); Calcium 8.3 mg/dL (8.5-10.5); Carbon Dioxide 26 mmol/L (22-29); Chloride 102 mmol/L (98-107); Globulin 2.3 g/dL (1.3-4.6); Glomerular Filtration Rate 108.8 mL/min (90-130); Glucose 102 mg/dL (65-115); Magnesium 1.5 mg/dL (1.7-2.3); Osmolality Calculated 283 mOsm/kg (285-295); Potassium 3.6 mmol/L (3.5-5.1); Sodium 137 mmol/L (136-145); Total Bilirubin 0.6 mg/dL (0.15-1.2); Total Protein 5.5 g/dL (6.6-8.7)
[2023-12-24] MEDS: hyDRALAzine 25 mg Tablet PO ×4 (03:04→19:48)
[2023-12-24] MEDS: amlodipine 10 mg Tablet PO ×2 (03:04→08:38)
[2023-12-24] MEDS: aztreonam 1,000 MG in sodium chloride 0.9% (plus) 50 ML 100 MG IV ×2 (03:05→14:41)
[2023-12-24] MEDS: morphine 4 mg/mL SDV 1 mL 2 MG IVP ×5 (03:11→21:49)
[2023-12-24 03:13] LABS: INR 0.98 (0.8-1.2)
[2023-12-24 03:15] LABS: Slide Review Slide Review Perform
--- NOTE | 2023-12-24 05:20 | PC.NURSE ---
around 0125 this nurse was notified by the production engineer that the patient was having chest pain. upon entering the room the patient was short of breath, had his hand on his chest, as well as periorbital edema and redness to his face. 0128 vitals were 171/125 hr 91 and 95% on RA. Ekg was taken and results were not remarkable. upon assessment of breath sounds audible wheezing was heard in the patients upper airway. 0132 vitals 161/109 hr 77 and 94% on room air. This nurse called the doctor and received the following orders: stop IV fluids, Stop Zosyn, 25 mg Benadryl IVP ONCE, 40mg Solu-medrol IVP. suspected allergic reaction to zosyn, doctor changed antibiotic to 1000mg aztreonam. Zosyn added to allergy list. upon reassesment post Order administration the patients vitals were 155/102 hr 79 95% on ra, no wheezing was heard per auscultation, periorbital edema was reduced and patient was stable.
[2023-12-24] MEDS: heparin 5,000 unit/mL INJ 1 mL 5000 UNIT SUBCUT ×2 (06:04→17:12)
[2023-12-24] MEDS: pantoprazole 40 mg SDV IVP (06:04)
[2023-12-24] MEDS: folic acid 1 mg Tablet PO (08:37)
[2023-12-24] MEDS: multivitamin therapeutic Tablet 1 TAB PO (08:38)
[2023-12-24] MEDS: thiamine 100 mg Tablet PO (08:38)
--- NOTE | 2023-12-24 12:11 | P.PN_ITS ---
Subjective 2 Subjective: Patient developed allergic reaction to Zosyn Medication has been changed Leukocytosis could be drug related Patient is tolerating diet no active nausea vomiting Abdomen exam is benign Vitals/I&O/Wt Last Vital Signs Temp 98.1 F 12/24/23 11:35 Pulse 89 12/24/23 11:35 Resp 17 12/24/23 11:35 BP 143/73 12/24/23 11:35 Pulse Ox 97 12/24/23 11:35 O2 Del Method Room Air 12/24/23 11:35 O2 Flow Rate 2 12/23/23 01:59 FiO2 21 12/23/23 03:55 12/23/23 12/24/23 12/24/23 22:59 06:59 14:59 Intake Total 3490 / 4482.5 2185.167 / 6667.667 840 / 840 Output Total 550 / 550 2325 / 2875 700 / 700 Balance 2940 / 3932.5 -139.833 / 3792.667 140 / 140 Weight last 48 hrs Weight 94.483 kg Weight 92.675 kg Weight 87.09 kg Weight 87.09 kg Physical Exam 2 Narrative: Awake and alert Abdominal exam is benign Tolerating diet Present Swelling noticed around the eyelid No sign of anaphylaxis No active wheezing or crackles No active shortness of breath No chest pain S1, S2 at the bedside Data 12/24/23 02:35 12/24/23 02:35 Micro: Microbiology 12/23/23 03:40 Blood Culture - Preliminary Blood NEGATIVE TO DATE 12/23/23 03:30 Blood Culture - Preliminary Blood NEGATIVE TO DATE A&P Assessment and plan (1) History of ADHD: (2) Generalized anxiety disorder: (3) Alcohol abuse: (4) Cannabis use disorder: (5) Acute pancreatitis: Qualifiers: Acute pancreatitis complication: no infection or necrosis Pancreatitis type: unspecified pancreatitis type Qualified Code(s): K85.90 - Acute pancreatitis without necrosis or infection, unspecified (6) Drug allergy: Plan Drug allergy to Zosyn No active signs of anaphylaxis Antibiotics changed CBC showing leukocytosis however no significant eosinophils Leukocytosis is likely related to use of steroid along Benadryl overnight Pancreatitis related to alcohol use Conservative management for now Continue antibiotics with S2 No sign of necrotic pancreas or sepsis Leukocytosis worsening noted Clinically patient doing much better tolerating diet, abdominal exam is benign Once leukocytosis start trending down I will be able to discharge him home if he is tolerating diet No active signs of alcohol withdrawal Patient has oxycodone morphine and Dilaudid for pain management at this point Full code Clear liquid diet for now Attestations 2 Medical Necessity Statement*: Continue medical management Diagnoses History of ADHD Z86.59 Generalized anxiety disorder F41.1 Alcohol abuse F10.10 Cannabis use disorder F12.90 Acute pancreatitis K85.90 Acute pancreatitis complication: no infection or necrosis Pancreatitis type: unspecified pancreatitis type Drug allergy Z88.9
[2023-12-24] MEDS: ipratropium-albuterol 3 mL Neb INHALATION (15:35)
[2023-12-25] VITALS (10 sets, daily range): BP systolic 143–162; BP diastolic 80–106; PULSE 75–91; RESP 16–20; TEMP 36.4–36.9; O2SAT 95–98
[2023-12-25] MEDS: HYDROmorphone 1 mg/mL INJ 1 mL IVP ×3 (00:28→10:59)
[2023-12-25] MEDS: aztreonam 1,000 MG in sodium chloride 0.9% (plus) 50 ML 100 MG IV (01:55)
[2023-12-25] MEDS: morphine 4 mg/mL SDV 1 mL 2 MG IVP ×2 (02:25→08:10)
[2023-12-25] MEDS: heparin 5,000 unit/mL INJ 1 mL 5000 UNIT SUBCUT (05:14)
[2023-12-25] MEDS: pantoprazole 40 mg SDV IVP (05:14)
[2023-12-25 05:36] LABS: Basophils # 0.1 10^3/uL (0.0-0.1); Basophils % 0.5 %; Eosinophils # 0.2 10^3/uL (0.0-0.8); Eosinophils % 1.4 %; Lymphocytes # 7.2 10^3/uL (0.8-4.8); Lymphocytes % 44.8 %; Mean Corpuscular HGB Conc 33.6 g/dL (30-55); Mean Corpuscular Hemoglobin 32.7 pg (27-33); Mean Corpuscular Volume 97.3 fl (82-101); Mean Platelet Volume 9.4 fL (7.4-10.4); Monocytes # 1.2 10^3/uL (0.2-0.9); Monocytes % 7.5 %; Neutrophils # 7.32 10^3/uL (1.8-7.7); Neutrophils % 45.5 %; Nucleated Red Blood Cells % 0 %; Platelet Count 392 10^3/cmm (157-399); Red Blood Count 4.52 10^6/uL (3.85-5.65); Red Cell Distribution Width 14.6 % (12.1-15.1); White Blood Count 16.09 10^3/uL (3.29-11.43)
[2023-12-25 06:16] LABS: Slide Review Slide Review Perform
[2023-12-25 06:48] LABS: Alanine Aminotransferase 56 U/L (0-41); Albumin Level 3.5 g/dL (3.5-5.2); Alkaline Phosphatase 162 U/L (40-130); Anion Gap 13.6 (5-19); Aspartate Amino Transferase 39 U/L (0-40); Blood Urea Nitrogen 5 mg/dL (6-20); Calcium 8.7 mg/dL (8.5-10.5); Carbon Dioxide 27 mmol/L (22-29); Chloride 99 mmol/L (98-107); Creatinine Clr Calc Pharmacy 146.6734; Globulin 3.1 g/dL (1.3-4.6); Glomerular Filtration Rate 108.8 mL/min (90-130); Glucose 101 mg/dL (65-115); Osmolality Calculated 279 mOsm/kg (285-295); Potassium 3.6 mmol/L (3.5-5.1); Sodium 136 mmol/L (136-145); Total Bilirubin 0.5 mg/dL (0.15-1.2); Total Protein 6.6 g/dL (6.6-8.7)
--- NOTE | 2023-12-25 06:54 | P.DS_ITS ---
Discharge Providers Date of Admission: 12/23/23 02:37 Date of Discharge: December 25, 2023 Attending Provider at Admission: Anni Fleming MD Attending Provider at Discharge: Shirley Jimenez MD Primary Care Provider: Mahamed Sales MD Diagnoses at Discharge Discharge Diagnosis (1) History of ADHD: Status: Acute (2) Generalized anxiety disorder: Status: Acute (3) Alcohol abuse: Status: Acute (4) Cannabis use disorder: Status: Acute (5) Acute pancreatitis: Status: Acute Qualifiers: Acute pancreatitis complication: no infection or necrosis Pancreatitis type: unspecified pancreatitis type Qualified Code(s): K85.90 - Acute pancreatitis without necrosis or infection, unspecified (6) Drug allergy: Status: Acute Reason for Visit Reason for Visit: right lung pain cough sob Hospital Course Hospital Course 38-year male who was admitted for management evaluation of alcohol use pancreati tis, there was pseudocyst with a lot of third spacing in pericolic gutters, unfortunately patient did well with conservative management and opioids, he did not suffer from necrotic pancreatitis, he remained afebrile, leukocytosis trending down, his jump of leukocytosis up to 19,000 likely related to use of steroid which was given after he developed swelling of eyes and redness of the face with use of Zosyn there were no signs of anaphylaxis. Patient is tolerating clear liquid diet, he is not vomiting anymore, leukocytosis trending down, counseled on alcohol cessation, will be able to discharge him with stable hemodynamics and a few days of opioids. Physical Exam Narrative: Abdomen nontender No sign of peritonitis GCS 15 Nonfocal neuroexam S1, S2 On room air Discharge Data Studies Completed and Pending Completed Studies During Hospitalization Category Date Time Status CT chest abdpel w/*[id number] Stat Cat Scan 12/23/23 12:10 Completed Pending at discharge Category Date Time Status Blood Culture Routine Lab 12/23/23 03:40 Results Radiology Impressions Chest/Abdomen/Pelvis CT 12/23/23 12:10 IMPRESSION: No acute findings. IMPRESSION: Inflammatory changes centered in the right upper quadrant, concerning for pancreatitis, complicated by pseudocysts in the pancreatic head and pancreatic body, and right perihepatic fluid collection. Secondary inflammatory changes of the duodenal and gallbladder wall noted. Additional less likely diagnostic consideration includes cholecystitis with wall perforation and perihepatic fluid collection. ADDENDUM: 12/23/23 0126 IMPRESSION: 1. No acute findings. 2. No subpleural nodule along the anterior aspect of the right upper lobe. Stable subpleural nodules in the right upper and lower lobes. Recommend IMPRESSION: Inflammatory changes centered in the right upper quadrant, concerning for pancreatitis, complicated by pseudocysts in the pancreatic head and pancreatic body, and right perihepatic fluid collection. Secondary inflammatory changes of the duodenal and gallbladder wall noted. Additional less likely diagnostic consideration includes cholecystitis with wall perforation and perihepatic fluid collection. REFERENCES: 1. Yony H, et al. Guidelines for Management of Incidental Pulmonary Nodules Detected on CT Images: From the Fleischner Society 2017. Radiology. 2017;284(1):228-243. 2. Umer J, et al. Updated Fleischner Society Guidelines for Managing Incidental Pulmonary Nodules: Common Questions and Challenging Scenarios. Radiographics. 2018;38(5):1454-2930. Laboratory Results WBC 16.09 10^3/uL (3.29-11.43) H 12/25/23 05:05 RBC 4.52 10^6/uL (3.85-5.65) 12/25/23 05:05 Hgb 14.80 g/dL (11.27-16.99) 12/25/23 05:05 Hct 44.0 % (37-53) 12/25/23 05:05 MCV 97.3 fl (82-101) 12/25/23 05:05 MCH 32.7 pg (27-33) 12/25/23 05:05 MCHC 33.6 g/dL (30-55) 12/25/23 05:05 RDW 14.6 % (12.1-15.1) 12/25/23 05:05 Plt Count 392 10^3/cmm (157-399) 12/25/23 05:05 MPV 9.4 fL (7.4-10.4) 12/25/23 05:05 Neut % (Auto) 45.5 % 12/25/23 05:05 Lymph % (Auto) 44.8 % 12/25/23 05:05 [place] % (Auto) 7.5 % 12/25/23 05:05 Eos % (Auto) 1.4 % 12/25/23 05:05 Baso % (Auto) 0.5 % 12/25/23 05:05 Neut # (Auto) 7.32 10^3/uL (1.8-7.7) 12/25/23 05:05 Lymph # (Auto) 7.2 10^3/uL (0.8-4.8) H 12/25/23 05:05 [place] # (Auto) 1.2 10^3/uL (0.2-0.9) H 12/25/23 05:05 Eos # (Auto) 0.2 10^3/uL (0.0-0.8) 12/25/23 05:05 Baso # (Auto) 0.1 10^3/uL (0.0-0.1) 12/25/23 05:05 Nucleated RBC % (auto) 0 % 12/25/23 05:05 Nucleated RBCs # 0.0 /100WBC 12/25/23 05:05 PT 13.30 SECONDS (12.1-14.9) 12/24/23 02:35 INR 0.98 (0.8-1.2) 12/24/23 02:35 APTT 23.5 SECONDS (23.9-36.7) L 12/22/23 23:21 Sodium 136 mmol/L (136-145) 12/25/23 05:00 Potassium 3.6 mmol/L (3.5-5.1) 12/25/23 05:00 Chloride 99 mmol/L (98-107) 12/25/23 05:00 Carbon Dioxide 27 mmol/L (22-29) 12/25/23 05:00 Anion Gap 13.6 (5-19) 12/25/23 05:00 BUN 5 mg/dL (6-20) L 12/25/23 05:00 Creatinine 0.8 mg/dL (0.7-1.2) 12/25/23 05:00 GFR Calculation 108.8 mL/min (90-130) 12/25/23 05:00 Glucose 101 mg/dL (65-115) 12/25/23 05:00 Calculated Osmolality 279 mOsm/kg (285-295) L 12/25/23 05:00 Lactic Acid 1.9 mmol/L (0.5-2.2) 05/21/24 23:21 Calcium 8.7 mg/dL (8.5-10.5) 12/25/23 05:00 Magnesium 1.5 mg/dL (1.7-2.3) L 12/24/23 02:35 Total Bilirubin 0.5 mg/dL (0.15-1.2) 12/25/23 05:00 AST 39 U/L (0-40) 12/25/23 05:00 ALT 56 U/L (0-41) H 12/25/23 05:00 Alkaline Phosphatase 162 U/L (40-130) H 12/25/23 05:00 Troponin T 5th Gen ng/L 7 ng/L (0-15) 12/24/23 02:35 Troponin T Baseline < 6 ng/L (0-15) 12/22/23 23:21 C-Reactive Protein 9.4 mg/L (0.0-4.9) H 12/23/23 03:30 Total Protein 6.6 g/dL (6.6-8.7) 12/25/23 05:00 Albumin 3.5 g/dL (3.5-5.2) 12/25/23 05:00 Globulin 3.1 g/dL (1.3-4.6) 12/25/23 05:00 Lipase 130 U/L (13-60) H 12/22/23 23:21 Procalcitonin 0.11 ng/mL (0-0.5) 12/23/23 03:30 Urine Color Yellow (Yellow) 12/23/23 03:51 Urine Appearance Clear (CLEAR) 12/23/23 03:51 Urine pH 7 (5-7) 12/23/23 03:51 Ur Specific [place] 1.001 (1.005-1.030) L 12/23/23 03:51 Urine Protein Trace (Negative) 12/23/23 03:51 Urine Glucose (UA) Norm (Normal) 12/23/23 03:51 Urine Ketones Negative (Negative) 12/23/23 03:51 Urine Blood Neg (Negative) 12/23/23 03:51 Urine Nitrate Negative (Negative) 12/23/23 03:51 Urine Bilirubin Neg (Negative) 12/23/23 03:51 Urine Urobilinogen 1 mg/dL (Negative) H 12/23/23 03:51 Ur Leukocyte Esterase Negative (Negative) 12/23/23 03:51 Urine RBC None /hpf (0-2) 12/23/23 03:51 Urine WBC None /hpf (0-5) 12/23/23 03:51 Ur Squamous Epith Cells 0-4 /hpf (0-5) H 12/23/23 03:51 Amorphous Sediment Not Reportable 12/23/23 03:51 Urine Bacteria None /hpf (NONE) 12/23/23 03:51 Influenza Type A Ag Negative (Negative) 12/22/23 23:31 Influenza Type B Ag Negative (Negative) 12/22/23 23:31 Vitals Last Vital Signs Temp 98.2 F 12/25/23 04:00 Pulse 75 12/25/23 04:00 Resp 16 12/25/23 05:13 BP 154/80 12/25/23 04:00 Pulse Ox 96 12/25/23 04:00 O2 Del Method Room Air 12/25/23 04:00 O2 Flow Rate 2 12/23/23 01:59 FiO2 21 12/23/23 03:55 Discharge Plan Discharge Patient Disposition: Home Condition: Stable Prescriptions: New ondansetron HCl 4 mg tablet 4 mg PO Q8H PRN (Reason: nausea and vomiting) Qty: 10 0RF Continued pantoprazole [Protonix] 40 mg tablet,delayed release (DR/EC) 80 mg PO DAILY aspirin [Children's Aspirin] 81 mg tablet,chewable 81 mg PO DAILY buspirone 10 mg tablet 10 mg PO BID Qty: 60 1RF atomoxetine 60 mg capsule 60 mg PO DAILY Qty: 30 1RF sertraline [Zoloft] 100 mg tablet 150 mg PO DAILY Qty: 45 1RF naltrexone 50 mg tablet 50 mg PO DAILY Qty: 30 1RF ipratropium bromide 21 mcg (0.03 %) spray,non-aerosol 2 spray INTRANASAL BID levocetirizine 5 mg tablet 5 mg PO DAILY naproxen [Naprosyn] 500 mg tablet 500 mg PO BID PRN (Reason: pain) Qty: 20 0RF lisinopril 20 mg tablet 20 mg PO DAILY ondansetron 4 mg tablet,disintegrating 4 mg PO BID PRN (Reason: Nausea And Vomiting) Remeron 30 mg tablet 30 mg PO BEDTIME magnesium 250 mg tablet 250 mg PO .QOD hydrocodone-acetaminophen 5-325 mg tablet 1 tab PO Q8H PRN (Reason: pain) Qty: 20 0RF folic acid 1 mg Tablet 1 mg PO DAILY Qty: 90 0RF thiamine mononitrate (vit B1) [Vitamin B-1 (mononitrate)] 100 mg Tablet 100 mg PO DAILY Qty: 90 0RF multivitamin with folic acid [Thera] 400 mcg Tablet 1 tab PO DAILY Qty: 90 0RF amlodipine 5 mg tablet 5 mg PO DAILY Qty: 90 0RF potassium citrate 99 mg Capsule 99 mg PO DAILY Discharge Orders: Discharge Order (Routine); Ordered 12/25/23 Ordered By: Shirley Jimenez Referrals: Mahamed Sales MD [Primary Care Provider] - 01/01/24 11:30 am Patient Instructions: Opioid Safety Discharge Attestations Time Spent in Discharge Care*: greater than 30 min Status at Discharge: Cognitive status at discharge: cognitively intact , Behavioral status at discharge: cooperative , Quality Metrics Clinical Quality Measures [ No reported AMI, CVA or VTE this stay] Coding Level of Care Code Acute Code for Chg Fwd Diagnoses History of ADHD Z86.59 Generalized anxiety disorder F41.1 Alcohol abuse F10.10 Cannabis use disorder F12.90 Acute pancreatitis K85.90 Acute pancreatitis complication: no infection or necrosis Pancreatitis type: unspecified pancreatitis type Drug allergy Z88.9
[2023-12-25] MEDS: folic acid 1 mg Tablet PO (08:10)
[2023-12-25] MEDS: hyDRALAzine 25 mg Tablet PO (08:10)
[2023-12-25] MEDS: amlodipine 10 mg Tablet PO (08:10)
[2023-12-25] MEDS: thiamine 100 mg Tablet PO (08:10)
[2023-12-25] MEDS: multivitamin therapeutic Tablet 1 TAB PO (08:10)
== END 2023-12-25 11:13 | disposition home or self-care (01) | DRG 439 ==
LOC: ER 12-23 02:05 → MEDSURG 12-23 02:37
PROVIDERS: Emergency Medicine; Admitting Provider Internal Medicine; Emergency Provider Physician Assistant; PCP Family Medicine; Visit Provider Internal Medicine
DX: K85.20 Alcohol induced acute pancreatitis without necrosis or infection (principal); K86.3 Pseudocyst of pancreas; F90.9 Attention-deficit hyperactivity disorder, unspecified type; F41.1 Generalized anxiety disorder; G89.29 Other chronic pain; F17.200 Nicotine dependence, unspecified, uncomplicated; F12.90 Cannabis use, unspecified, uncomplicated; Z79.82 Long term (current) use of aspirin; Z88.8 Allergy status to other drugs, medicaments and biological substances
CPT/HCPCS: 36415; 71260; 74177; 80053; 81001; 83605; 83690; 83735; 84145; 84484; 85025; 85610; 85730; 86140; 87040; 87804; 93005; 94640; 94664; 96372; 96374; 96375; 96376; 99285; C9113; J1170; J1200; J1644; J1885; J2270; J2543; J2919; J3411; J3490; J7030; J7121; Q9967

== ENCOUNTER 2023-12-29 21:00 | Emergency (ER) | payer MEDICAID, SELFPAY ==
[2023-12-29 21:12] VITALS: BP 142/88; PULSE 18; RESP 18; TEMP 36.5; O2SAT 96; BMI 26.7
[2023-12-29 21:45] VITALS: BP 143/106; PULSE 90; O2SAT 99
--- NOTE | 2023-12-29 22:07 | XRR_ITS ---
PROCEDURE INFORMATION: Exam: XR Chest Exam date and time: 12/29/2023 10:10 PM Age: 38 years old Clinical indication: Pain; Chest pressure; Prior surgery; Surgery date: 6+ months; Surgery type: RT clavicle; Additional info: Chest pain TECHNIQUE: Imaging protocol: Radiologic exam of the chest. Views: 1 view. COMPARISON: CT chest abdpel w/*[id number] 12/22/2023 11:52 PM FINDINGS: Lungs: Minimal atelectasis or scar in the right lung base and left lingula. The lungs are otherwise clear. Pleural spaces: Unremarkable. No pleural effusion. No pneumothorax. Heart/Mediastinum: Unremarkable. No cardiomegaly. Bones/joints: Metal plate and screws in the right clavicle. No acute fracture. XR/XR chest 1V portable [id number] IMPRESSION: No acute findings.
--- NOTE | 2023-12-29 22:08 | W.ED.CHESTPA ---
HPI - Chest Pain General: Chief Complaint: Chest Pain Stated Complaint: CP Time Seen by Provider: 12/29/23 22:05 History of Present Illness: 38-year-old man with a history of pancreatitis, tobacco dependence, hypertension anxiety, alcohol abuse, who presents to the emergency room with chest and epigastric pain. He is having pain in his left lower chest that he says radiates around to the right side and into his right back. He says it hurts when he breathes. It has burning pain. He has had a cough. He says it also feels like when he has episodes of pancreatitis. No nausea or vomiting. No other abdominal pain. Review of Systems Narrative: Constitutional symptoms: Negative except as documented in HPI. Skin symptoms: Negative except as documented in HPI. Eye symptoms: Negative except as documented in HPI. ENMT symptoms: Negative except as documented in HPI. Respiratory symptoms: Negative except as documented in HPI. Cardiovascular symptoms: Negative except as documented in HPI. Gastrointestinal symptoms: Negative except as documented in HPI. Genitourinary symptoms: Negative except as documented in HPI. Musculoskeletal symptoms: Negative except as documented in HPI. Neurologic symptoms: Negative except as documented in HPI. Psychiatric symptoms: Negative except as documented in HPI. Endocrine symptoms: Negative except as documented in HPI. PFS ED PFSH: Medical History Generalized anxiety disorder History of ADHD Cannabis use disorder Psychiatric care Tobacco use Hypomagnesemia Hepatomegaly Transaminitis Alcohol intoxication Acute pancreatitis Alcoholism Esophagitis Alcohol intoxication Acute pancreatitis Pseudocyst of pancreas Polysubstance abuse History of suicide attempt C7 cervical fracture C2 cervical fracture L4 vertebral fracture Alcohol abuse PTSD (post-traumatic stress disorder) Elevated transaminase level Pancreatitis, alcoholic, acute Surgical History History of appendectomy History of splenectomy Family History Other Diabetes Social History Smoking and tobacco/nicotine status: current every day tobacco/nicotine user Alcohol intake: current Alcohol intake frequency: 3 or more drinks per day Alcohol type: hard liquor Substance/Drug Use: current Substance/Drug use frequency: daily Physical Exam Narrative: EXAM NARRATIVE: General: Alert, no acute distress. Skin: Warm, dry. Head: Normocephalic, atraumatic. Neck: Supple, trachea midline. Eye: Extraocular movements are intact. Ears, nose, mouth and throat: mucosa moist. Cardiovascular: Regular, Normal peripheral perfusion. Respiratory: Lungs are clear to auscultation, respirations are non-labored, breath sounds are equal, Symmetrical chest wall expansion. Gastrointestinal: Soft, Nontender, Non distended, Normal bowel sounds. Musculoskeletal: Normal ROM, no deformity. Neurological: Alert and oriented, No focal neurological deficit observed. Psychiatric: Cooperative, appropriate mood & affect. Course Vital Signs: Vital signs: Vital Signs Temperature 97.7 F 12/29/23 21:12 Pulse Rate 83 12/29/23 23:30 Respiratory Rate 25 H 12/29/23 23:30 Blood Pressure 127/87 12/29/23 23:30 Pulse Oximetry 95 12/29/23 23:30 MDM - Chest Pain Medical Decision Making Medical decision making: Differential diagnosis including but not limited to and based on the above HPI, review of systems and physical exam: Rule out pancreatitis with lipase. Basic lab work. Chest x-ray to rule out pneumonia etc. Orders placed to evaluate differential diagnosis based on the above differential, HPI and physical exam Lab Review: Laboratory results were reviewed and interpreted by myself the emergency room physician. Patient does not have pancreatitis. White count is 13. Hemoglobin is 15.7. BUN/creatinine 8 and 0.7. Serial troponins are negative. EKG is nonischemic. Chest x-ray: No acute process. No infiltrate. No pneumothorax. No cardiomegaly. This was reviewed and interpreted by myself the ER physician. EKG: Time 2241 rate 85. Normal sinus rhythm, No ST-T changes, no ectopy, normal HI & QRS intervals, This was reviewed and interpreted by myself the ER physician at 2245 I reviewed the patient's medical record. Reexamination: Patient remained stable. No increased work of breathing. No altered mental status. No focal motor deficits. Assessment and plan: Chest pain, noncardiac -Decadron and Toradol in the emergency room - Discharged home - Discussed plan with patient. Answered any questions. - Evaluation and treatment of this problem were appropriate in the emergency setting. Lab Data 12/29/23 22:27 12/29/23 22:27 Radiology Impressions Chest X-Ray 12/29/23 22:07 IMPRESSION: No acute findings. Laboratory Results WBC 13.04 10^3/uL (3.29-11.43) H 12/29/23: RBC 4.71 10^6/uL (3.85-5.65) 12/29/23 22: Hgb 15.70 g/dL (11.27-16.99) 12/29/23: Hct 45.7 % (37-53) 12/29/23 22: MCV 97.0 fl (82-101) 12/29/23 22: MCH 33.3 pg (27-33) H 12/29/23 22: MCHC 34.4 g/dL (30-55) 12/29/23: RDW 15.3 % (12.1-15.1) H 12/29/23: Plt Count 442 10^3/cmm (157-399) H 12/29/23: MPV 8.8 fL (7.4-10.4) 12/29/23: Neut % (Auto) 50.9 % 12/29/23 22: Lymph % (Auto) 36.3 % 12/29/23: [place] % (Auto) 10.3 % 12/29/23: Eos % (Auto) 1.7 % 12/29/23: Baso % (Auto) 0.5 % 12/29/23: Neut # (Auto) 6.64 10^3/uL (1.8-7.7) 12/29/23: Lymph # (Auto) 4.7 10^3/uL (0.8-4.8) 12/29/23: [place] # (Auto) 1.3 10^3/uL (0.2-0.9) H 12/29/23: Eos # (Auto) 0.2 10^3/uL (0.0-0.8) 12/29/23: Baso # (Auto) 0.1 10^3/uL (0.0-0.1) 12/29/23: Nucleated RBC % (auto) 0 % 12/29/23: Nucleated RBCs # 0.0 /100WBC 12/29/23 22:27 Sodium 140 mmol/L (136-145) 12/29/23 22:27 Potassium 3.8 mmol/L (3.5-5.1) 12/29/23 22: Chloride 104 mmol/L (98-107) 12/29/23 22: Carbon Dioxide 23 mmol/L (22-29) 12/29/23 22: Anion Gap 16.8 (5-19) 12/29/23 22: BUN 8 mg/dL (6-20) 12/29/23 22: Creatinine 0.7 mg/dL (0.7-1.2) 12/29/23 22: GFR Calculation 126.9 mL/min (90-130) 12/29/23 22: Glucose 95 mg/dL (65-115) 12/29/23 22: Calculated Osmolality 288 mOsm/kg (285-295) 12/29/23 22: Lactic Acid 1.3 mmol/L (0.5-2.2) 12/29/23 22: Calcium 8.8 mg/dL (8.5-10.5) 12/29/23 22: Total Bilirubin 0.4 mg/dL (0.15-1.2) 12/29/23 22: AST 53 U/L (0-40) H 12/29/23 22: ALT 63 U/L (0-41) H 12/29/23 22: Alkaline Phosphatase 209 U/L (40-130) H 12/29/23 22:27 Troponin T Baseline < 6 ng/L (0-15) 12/29/23 22: Troponin T 120 Minute 6.00 ng/L (0-15) 12/30/23 00:29 Delta Troponin T 0.25982 ABS# (0-10) 12/30/23 00:29 C-Reactive Protein 9.9 mg/L (0.0-4.9) H 12/29/23 22: Total Protein 7.3 g/dL (6.6-8.7) 12/29/23 22: Albumin 3.8 g/dL (3.5-5.2) 12/29/23 22: Globulin 3.5 g/dL (1.3-4.6) 12/29/23 22:27 Lipase 71 U/L (13-60) H 12/29/23 22:27 Ethyl Alcohol < 10 mg/dL (0-10) 12/29/23 22:27 All radiology interpretation(s) finalized by discharge Discharge Plan Discharge Patient Disposition: Home Clinical Impression: Chest pain Condition: Stable Prescriptions: New dexamethasone 6 mg tablet 6 mg PO DAILY 5 Days Qty: 5 0RF No Action pantoprazole [Protonix] 40 mg tablet,delayed release (DR/EC) 80 mg PO DAILY aspirin [Children's Aspirin] 81 mg tablet,chewable 81 mg PO DAILY buspirone 10 mg tablet 10 mg PO BID Qty: 60 1RF atomoxetine 60 mg capsule 60 mg PO DAILY Qty: 30 1RF sertraline [Zoloft] 100 mg tablet 150 mg PO DAILY Qty: 45 1RF naltrexone 50 mg tablet 50 mg PO DAILY Qty: 30 1RF ipratropium bromide 21 mcg (0.03 %) spray,non-aerosol 2 spray INTRANASAL BID levocetirizine 5 mg tablet 5 mg PO DAILY naproxen [Naprosyn] 500 mg tablet 500 mg PO BID PRN (Reason: pain) Qty: 20 0RF lisinopril 20 mg tablet 20 mg PO DAILY ondansetron 4 mg tablet,disintegrating 4 mg PO BID PRN (Reason: Nausea And Vomiting) Remeron 30 mg tablet 30 mg PO BEDTIME magnesium 250 mg tablet 250 mg PO .QOD ondansetron HCl 4 mg tablet 4 mg PO Q8H PRN (Reason: nausea and vomiting) Qty: 10 0RF hydrocodone-acetaminophen 5-325 mg tablet 1 tab PO Q8H PRN (Reason: pain) Qty: 20 0RF folic acid 1 mg Tablet 1 mg PO DAILY Qty: 90 0RF thiamine mononitrate (vit B1) [Vitamin B-1 (mononitrate)] 100 mg Tablet 100 mg PO DAILY Qty: 90 0RF multivitamin with folic acid [Thera] 400 mcg Tablet 1 tab PO DAILY Qty: 90 0RF amlodipine 5 mg tablet 5 mg PO DAILY Qty: 90 0RF potassium citrate 99 mg Capsule 99 mg PO DAILY Discharge Orders: Discharge ED (Routine); Ordered 12/30/23 Ordered By: Jessa Faustin Referrals: Mahamed Sales MD [Primary Care Provider] - Discharge Diet: Usual diet Discharge Activity: Increase activity as tolerated Patient Instructions: Chest Pain (ED) Activity Restrictions/Additional Instructions: Thank you for choosing [facility] for your healthcare needs today. Please realize this is an emergency room and that we are providing you with a medical screening exam and this may not be complete and all inclusive of all the testing and or work up that you may need to determine your ailment or severity of your illness. You have been screened and evaluated and felt safe for discharge. Health conditions do change or evolve sometimes and as such it is important that you follow up with your Primary Doctor to be re checked, 3-5 days is a general good time frame for follow up. You are always welcome to return to the ED for re assessment if your symptoms are worsening or you have new concerns Coding Level of Care Code ED Gas Engineer for Marko Avery
[2023-12-29 22:15] VITALS: BP 125/97; PULSE 86; O2SAT 98
[2023-12-29 22:35] LABS: Basophils # 0.1 10^3/uL (0.0-0.1); Basophils % 0.5 %; Eosinophils # 0.2 10^3/uL (0.0-0.8); Eosinophils % 1.7 %; Hematocrit 45.7 % (37-53); Lymphocytes # 4.7 10^3/uL (0.8-4.8); Lymphocytes % 36.3 %; Mean Corpuscular HGB Conc 34.4 g/dL (30-55); Mean Corpuscular Hemoglobin 33.3 pg (27-33); Mean Platelet Volume 8.8 fL (7.4-10.4); Monocytes # 1.3 10^3/uL (0.2-0.9); Monocytes % 10.3 %; Neutrophils # 6.64 10^3/uL (1.8-7.7); Neutrophils % 50.9 %; Nucleated Red Blood Cells % 0 %; Platelet Count 442 10^3/cmm (157-399); Red Blood Count 4.71 10^6/uL (3.85-5.65); Red Cell Distribution Width 15.3 % (12.1-15.1); White Blood Count 13.04 10^3/uL (3.29-11.43)
--- NOTE | 2023-12-29 22:41 | ECG_ITS ---
[facility] Test Date: 2023-12-29 Pat Name: Elena Hernandez Department: Room: Gender: Male Unit Supervisor: : 1985 Requested By: Jessa Flores Order Number: [id number] Boni MD: Jaaml Godwin M.D. Measurements Intervals [place] Rate: 85 P: 52 MI: 139 QRS: 42 QRSD: 100 T: 55 QT: 409 QTc: 488 Interpretive Statements SINUS RHYTHM POSSIBLE LATERAL MYOCARDIAL INFARCTION , PROBABLY OLD [30 ms Q WAVE IN I/aVL/V5/V6] Compared to ECG 12/24/2023 01:29:03 Myocardial infarct finding now present ST (T wave) deviation no longer present Electronically Signed On 12-30-2023 13:55:43 CDT by Jamal Godwin M.D. [id number]
[2023-12-29 22:45] VITALS: BP 133/97; PULSE 80; O2SAT 97
[2023-12-29 22:55] LABS: Troponin(5th) Baseline < 6 ng/L (0-15)
[2023-12-29 22:58] LABS: Alanine Aminotransferase 63 U/L (0-41); Albumin Level 3.8 g/dL (3.5-5.2); Alkaline Phosphatase 209 U/L (40-130); Anion Gap 16.8 (5-19); Aspartate Amino Transferase 53 U/L (0-40); Blood Urea Nitrogen 8 mg/dL (6-20); C Reactive Protein 9.9 mg/L (0.0-4.9); Calcium 8.8 mg/dL (8.5-10.5); Carbon Dioxide 23 mmol/L (22-29); Chloride 104 mmol/L (98-107); Creatinine Clr Calc Pharmacy 163.5248; Globulin 3.5 g/dL (1.3-4.6); Glomerular Filtration Rate 126.9 mL/min (90-130); Glucose 95 mg/dL (65-115); Lipase 71 U/L (13-60); Osmolality Calculated 288 mOsm/kg (285-295); Potassium 3.8 mmol/L (3.5-5.1); Sodium 140 mmol/L (136-145); Total Bilirubin 0.4 mg/dL (0.15-1.2); Total Protein 7.3 g/dL (6.6-8.7)
[2023-12-29 22:59] LABS: Alcohol Level < 10 mg/dL (0-10); Lactic Sepsis W/Reflex 1.3 mmol/L (0.5-2.2)
[2023-12-29 23:09] LABS: Slide Review Slide Review Perform
[2023-12-29 23:30] VITALS: BP 127/87; PULSE 83; RESP 25; O2SAT 95
[2023-12-30] VITALS: BP 123/80; PULSE 73; RESP 26; O2SAT 99
[2023-12-30 00:30] VITALS: BP 121/82; PULSE 73; RESP 26; O2SAT 96
[2023-12-30] MEDS: ketorolac 30 mg/mL INJ IVP (00:46)
[2023-12-30 00:50] LABS: Troponin 5 2HR Delta 0.00001 ABS# (0-10)
[2023-12-30 01:00] VITALS: BP 124/80; PULSE 85; RESP 28; O2SAT 95
[2023-12-30] MEDS: dexamethasone 10 mg/mL INJ IVP (01:10)
[2023-12-30 01:30] VITALS: BP 135/78; PULSE 84; RESP 28; O2SAT 95
[2023-12-30 01:33] VITALS: BP 135/78; PULSE 77; RESP 22; O2SAT 95
== END 2023-12-30 01:35 | disposition home or self-care (01) ==
PROVIDERS: Emergency Provider Emergency Medicine; PCP Family Medicine
DX: R07.9 Chest pain, unspecified (principal); Z79.82 Long term (current) use of aspirin; Z72.0 Tobacco use
CPT/HCPCS: 36415; 71045; 80053; 80307; 83605; 83690; 84484; 85025; 86140; 93005; 96374; 96375; 99285; J1100; J1885

== ENCOUNTER 2024-01-03 03:01 | Inpatient (IN) | payer MEDICAID, SELFPAY ==
[2024-01-03] VITALS (11 sets, daily range): BP systolic 130–173; BP diastolic 62–116; PULSE 61–80; RESP 16–18; TEMP 36.3–37.2; O2SAT 94–97; BMI 26.4
[2024-01-03 03:31] LABS: Basophils # 0.1 10^3/uL (0.0-0.1); Basophils % 0.3 %; Eosinophils # 0.1 10^3/uL (0.0-0.8); Eosinophils % 0.4 %; Hematocrit 45.8 % (37-53); Lymphocytes # 8.5 10^3/uL (0.8-4.8); Lymphocytes % 45.5 %; Mean Corpuscular HGB Conc 34.3 g/dL (30-55); Mean Corpuscular Hemoglobin 33.1 pg (27-33); Mean Corpuscular Volume 96.6 fl (82-101); Mean Platelet Volume 9.1 fL (7.4-10.4); Monocytes # 1.6 10^3/uL (0.2-0.9); Monocytes % 8.3 %; Neutrophils # 8.37 10^3/uL (1.8-7.7); Neutrophils % 44.6 %; Nucleated Red Blood Cells % 0 %; Platelet Count 569 10^3/cmm (157-399); Red Blood Count 4.74 10^6/uL (3.85-5.65); Red Cell Distribution Width 15.1 % (12.1-15.1); White Blood Count 18.72 10^3/uL (3.29-11.43)
--- NOTE | 2024-01-03 03:33 | CTR_ITS ---
PROCEDURE INFORMATION: Exam: CTA Chest With Contrast Exam date and time: 01/03/2024 3:47 AM Age: 38 years old Clinical indication: Pain and abnormal findings; Abnormal lab test; Elevated lipase and elevated wbc; Nausea and vomiting; Abdominal pain; Other: N/a; Shortness of breath; Chest pressure; Prior surgery; Surgery date: 6+ months; Surgery type: Clavicle fixation. Splenectomy. Appendectomy; Patient HX: Chest and epigastric pain with SOB and n/v. Wbc of 19k with elevated lipase. History of pancreatitis with pseudocyst. ; Additional info: Epigastric and chest pain, SOB TECHNIQUE: Imaging protocol: Computed tomographic angiography of the chest with contrast. Exam focused on the arteries. 3D rendering (Not supervised by radiologist): MIP and/or 3D reconstructed images were created by the technologist. Radiation optimization: All CT scans at this facility use at least one of these dose optimization techniques: automated exposure control; mA and/or kV adjustment per patient size (includes targeted exams where dose is matched to clinical indication); or iterative reconstruction. Contrast material: OMNI 350; Contrast volume: 100 ml; Contrast route: INTRAVENOUS (IV); COMPARISON: CT chest abdpel w/*[id number] 12/22/2023 11:52 PM RADIATION DOSE METRICS: Total DLP (mGy-cm): 941.78 FINDINGS: Pulmonary arteries: Normal. No pulmonary emboli. Aorta: Unremarkable. No aortic aneurysm. No aortic dissection. Lungs: Similar 6 mm right upper lobe pulmonary nodule on series 12 image 184. Similar 5 mm right lower lobe pulmonary nodule on image 199. Similar 3 mm right upper lobe pulmonary nodule on image 215. No focal airspace consolidation. Pleural spaces: Unremarkable. No pneumothorax. No pleural effusion. Heart: Unremarkable. No cardiomegaly. No pericardial effusion. Lymph nodes: Unremarkable. No enlarged lymph nodes. Bones/joints: Surgical changes in the right clavicle. Soft tissues: Unremarkable. months, then CT Chest at 18-24 months. (Reference: Yony) REFERENCES: ignacia Galan al. Guidelines for Management of Incidental Pulmonary Nodules Detected on CT Images: From the Fleischner Society 2017. Radiology. 2017;284(1):228-243. PROCEDURE INFORMATION: Exam: CT Abdomen And Pelvis With Contrast Exam date and time: 01/03/2024 3:47 AM Age: 38 years old Clinical indication: Pain and abnormal findings; Abnormal lab test; Elevated lipase and elevated wbc; Nausea and vomiting; Abdominal pain; Other: N/a; Shortness of breath; Chest pressure; Prior surgery; Surgery date: 6+ months; Surgery type: Clavicle fixation. Splenectomy. Appendectomy; Patient HX: Chest and epigastric pain with SOB and n/v. Wbc of 19k with elevated lipase. History of pancreatitis with pseudocyst. ; Additional info: Epigastric and chest pain, SOB TECHNIQUE: Imaging protocol: Computed tomography of the abdomen and pelvis with contrast. Radiation optimization: All CT scans at this facility use at least one of these dose optimization techniques: automated exposure control; mA and/or kV adjustment per patient size (includes targeted exams where dose is matched to clinical indication); or iterative reconstruction. Contrast material: OMNI 350; Contrast volume: 100 ml; Contrast route: INTRAVENOUS (IV); COMPARISON: CT chest abdpel w/*[id number] 12/22/2023 11:52 PM RADIATION DOSE METRICS: Total DLP (mGy-cm): 941.78 FINDINGS: Liver: Similar geographic hepatic steatosis involving the right lobe of the liver. Mildly decreased volume and organization of some loculated fluid tracking along the right hepatic lobe, though there is slightly increased fluid tracking along the upper caudate lobe of the liver on series 6, image 18. Gallbladder and bile ducts: Normal. No calcified stones. No ductal dilation. Pancreas: Similar pseudocyst in the pancreatic neck measuring 3.1 x 2.7 cm. Mildly increased size of a pseudocyst in the pancreatic head measuring 2.1 x 1.5 cm. There are again inflammatory changes about the head of the pancreas. There is again some ill-defined fluid between the head of the pancreas and 2nd portion of the duodenum. Spleen: Splenectomy. Adrenal glands: Normal. No mass. Kidneys and ureters: Small left renal cyst. No hydronephrosis. Stomach and bowel: Inflammatory changes about the hepatic flexure are slightly improved. Appendix: No evidence of appendicitis. Intraperitoneal space: Unremarkable. No free air. No significant fluid collection. Vasculature: Unremarkable. No abdominal aortic aneurysm. Lymph nodes: Unremarkable. No enlarged lymph nodes. Urinary bladder: Unremarkable as visualized. Reproductive: Unremarkable as visualized. Bones/joints: Unremarkable. No acute fracture. Soft tissues: Small fat containing bilateral inguinal hernias. CT/CT angio chest w abd pel w con IMPRESSION: 1. No acute findings. 2. Redemonstrated pulmonary nodules including a 6 mm right upper lobe pulmonary nodule. For patients at low risk (minimal or absent history of smoking and of other known risk factors), recommend CT Chest at 3-6 months, then consider CT Chest at 18-24 months. For patients at high risk (history of smoking or of other known risk factors), recommend CT Chest at 3-6 IMPRESSION: 1. Redemonstrated sequela of pancreatitis with similar pseudocyst in the pancreatic neck and mildly increased size of a pseudocyst in the pancreatic head. 2. Mildly decreased volume and organization of some loculated fluid tracking along the right hepatic lobe, though there is slightly increased fluid tracking along the upper caudate lobe of the liver. 3. Inflammatory changes about the hepatic flexure are slightly improved. COMMENTS: Consistent with the [employer]'s Incidental Findings Committee white paper (J Am Ruth Radiol 2018): Any incidental renal lesion less than 1 cm or classified as too small to characterize, or any incidental cystic renal lesion characterized as simple-appearing, is likely benign. No follow-up imaging is recommended for these lesions per consensus recommendations based on imaging criteria.
[2024-01-03 03:41] LABS: Alanine Aminotransferase 70 U/L (0-41); Alkaline Phosphatase 170 U/L (40-130); Aspartate Amino Transferase 46 U/L (0-40); Blood Urea Nitrogen 10 mg/dL (6-20); Calcium 9.3 mg/dL (8.5-10.5); Carbon Dioxide 24 mmol/L (22-29); Chloride 101 mmol/L (98-107); Creatinine Clr Calc Pharmacy 142.4354; Globulin 3.3 g/dL (1.3-4.6); Glomerular Filtration Rate 108.8 mL/min (90-130); Glucose 88 mg/dL (65-115); Lipase 120 U/L (13-60); Osmolality Calculated 288 mOsm/kg (285-295); Sodium 140 mmol/L (136-145); Total Bilirubin 0.3 mg/dL (0.15-1.2); Total Protein 7.3 g/dL (6.6-8.7)
[2024-01-03] MEDS: ondansetron 2 mg/ML SDV 2 mL 4 MG IVP (03:41)
[2024-01-03] MEDS: HYDROmorphone 1 mg/mL INJ 1 mL 2 MG IVP ×2 (03:41→05:15)
[2024-01-03 03:42] LABS: Lactic Sepsis W/Reflex 1.7 mmol/L (0.5-2.2)
[2024-01-03 03:44] LABS: Alcohol Level < 10 mg/dL (0-10); Anion Gap 18.3 (5-19); Potassium 3.3 mmol/L (3.5-5.1)
[2024-01-03 03:48] LABS: Add Urine Microscopic? NO; Charge for UA Resulting for Rev
--- NOTE | 2024-01-03 03:48 | ED_ITS ---
HPI - Abdominal Pain 2 General: Chief Complaint: Abdominal Pain Stated Complaint: abd pain Time Seen by Provider: 01/03/24 03:11 History of Present Illness: 38-year-old gentleman who has been seen multiple times for abdominal pain and chest pain in the ER over the last 3 months. He does have a history of pancreatitis, with pseudocyst formation. He presents with similar complaints of epigastric pain in a bandlike fashion around his belly radiating into his back. He denies fever, he has vomited a couple of times in the last 24 hours. Pain is quite intense he says. No blood in the vomitus. Pain with trying to deep breathe, he is splinting in the room breathing. He called EMS this morning. He was given 100 mcg of fentanyl without relief. Associated Symptoms: Reports nausea and vomiting; Denies fever(s) Review of Systems 2 Const: Denies: fever(s) ENMT: Denies: throat pain Card: Reports: chest pain; Denies: palpitations Resp: Reports: dyspnea; Denies: productive cough or non-productive cough GI: Reports: abdominal pain, nausea and vomiting : Reports: flank pain Musc: Reports: back pain; Denies: neck pain Skin/Breast: Reports: skin swelling (Periorbital) PFSH ED 2 PFSH: Medical History (Updated 01/03/24 @ 16:13 by Demetrio King DO) Acute pancreatitis Drug allergy Acute chest wall pain Acute pancreatitis Generalized anxiety disorder History of ADHD Cannabis use disorder Psychiatric care Tobacco use Hypomagnesemia Hepatomegaly Transaminitis Alcohol intoxication Alcoholism Esophagitis Alcohol intoxication Acute pancreatitis Pseudocyst of pancreas Polysubstance abuse History of suicide attempt C7 cervical fracture C2 cervical fracture L4 vertebral fracture Alcohol abuse PTSD (post-traumatic stress disorder) Elevated transaminase level Pancreatitis, alcoholic, acute Surgical History History of appendectomy History of splenectomy Family History Other Diabetes Social History Smoking and tobacco/nicotine status: current every day tobacco/nicotine user Alcohol intake: current Alcohol intake frequency: 3 or more drinks per day Alcohol type: hard liquor Substance/Drug Use: current Substance/Drug use frequency: daily Physical Exam 2 Const: GENERAL APPEARANCE: cooperative, in distress and ill appearing (Mildly); not frail appearing HENMT: COMMON NORMALS: normocephalic, atraumatic and Normal external nose present HEAD & SCALP: normocephalic and atraumatic FACE & SINUS: face symmetric and edema (Periorbital bilateral) NOSE: Normal external nose present Eye: COMMON NORMALS: Equal, round and reactive pupils present and EOMs intact bilaterally PUPIL: Yes Equal, round and reactive pupils present Neck/C-Spine: GENERAL: Yes trachea midline Chest: CHEST: Yes Symmetrical chest wall rise Resp: COMMON NORMALS: No use of accessory muscles and clear to auscultation bilaterally EFFORT & INSPECTION: Yes tachypneic and Yes other (Splinting) AUSCULTATION: clear to auscultation bilaterally Cardio: COMMON NORMALS: regular rate and regular rhythm RATE: regular rate RHYTHM: regular rhythm GI: COMMON NORMALS: Normal to inspection, nondistended, normoactive bowel sounds present PALPATION: Yes Tenderness to palpation present (GI) (Epigastric) Details: LUQ and RUQ Extremity: COMMON NORMALS: no pedal edema Neuro: GENE COMA SCALE: document GCS findings Gene coma scale eye opening: Spontaneous Gene coma scale verbal response: Orientated Gene coma scale motor response: Obey commands [place] coma scale total score: 15 S ENSORY EXAM: Yes extremities (intact) Psych: COMMON NORMALS: speech normal SPEECH: Yes normal speech Skin: COMMON NORMALS: no rashes or lesions noted GENERAL SKIN EXAM: no rashes or lesions noted Course 2 Vital Signs: Vital signs: Vital Signs Temperature 97.7 F 01/03/24 11:53 Pulse Rate 61 01/03/24 11:53 Respiratory Rate 18 01/03/24 11:53 Blood Pressure 149/90 01/03/24 11:53 Pulse Oximetry 94 01/03/24 11:53 Oxygen Delivery Me thod Room Air 01/03/24 11:53 MDM - Abdominal Pain Medical Decision Making This is a gentleman with at least recurrent acute pancreatitis, likely exacerbations of chronic pancreatitis. It has taken quite a bit of pain medication to get his pain under control. His blood pressure is improved with pain control. other vitals are stable. He is not febrile. His white blood cell count is 18, which is up from prior. This may be due to worsening acute condition versus the use of steroids as an outpatient. His platelet count is up as well. Potassium mildly low. His CRP is only 3. lactic acid is 1.7. Troponins were completed and have ruled out acute coronary syndrome. CT scan shows continued pseudo cystic change of his pancreas. Cyst size does not appear amenable to drainage by CT. Bile ducts are normal. I have not given the patient antibiotics, as they do not seem indicated at this point. What will be indicated is IV fluid resuscitation, NPO status, and continued pain control. At this time, clear reason for transfer not established. Will admit the patient. Hospitalist agrees. Lab Data 01/03/24 02:39 01/03/24 02:39 Labs/Radiology: Radiology Impressions Chest/Abdomen/Pelvis CT 01/03/24 03:33 IMPRESSION: 1. No acute findings. 2. Redemonstrated pulmonary nodules including a 6 mm right upper lobe pulmonary nodule. For patients at low risk (minimal or absent history of smoking and of other known risk factors), recommend CT Chest at 3-6 months, then consider CT Chest at 18-24 months. For patients at high risk (history of smoking or of other known risk factors), recommend CT Chest at 3-6 IMPRESSION: 1. Redemonstrated sequela of pancreatitis with similar pseudocyst in the pancreatic neck and mildly increased size of a pseudocyst in the pancreatic head. 2. Mildly decreased volume and organization of some loculated fluid tracking along the right hepatic lobe, though there is slightly increased fluid tracking along the upper caudate lobe of the liver. 3. Inflammatory changes about the hepatic flexure are slightly improved. COMMENTS: Consistent with the [place] [employer]'s Incidental Findings Committee white paper (J Am Ruth Radiol 2018): Any incidental renal lesion less than 1 cm or classified as too small to characterize, or any incidental cystic renal lesion characterized as simple-appearing, is likely benign. No follow-up imaging is recommended for these lesions per consensus recommendations based on imaging criteria. Laboratory Results WBC 18.72 10^3/uL (3.29-11.43) H 01/03/24 02:39 RBC 4.74 10^6/uL (3.85-5.65) 01/03/24 02:39 Hgb 15.70 g/dL (11.27-16.99) 01/03/24 02:39 Hct 45.8 % (37-53) 01/03/24 02:39 MCV 96.6 fl (82-101) 01/03/24 02:39 MCH 33.1 pg (27-33) H 01/03/24 02:39 MCHC 34.3 g/dL (30-55) 01/03/24 02:39 RDW 15.1 % (12.1-15.1) 01/03/24 02:39 Plt Count 569 10^3/cmm (157-399) H 01/03/24 02:39 MPV 9.1 fL (7.4-10.4) 01/03/24 02:39 Neut % (Auto) 44.6 % 01/03/24 02:39 Lymph % (Auto) 45.5 % 01/03/24 02:39 [place] % (Auto) 8.3 % 01/03/24 02:39 Eos % (Auto) 0.4 % 01/03/24 02:39 Baso % (Auto) 0.3 % 01/03/24 02:39 Neut # (Auto) 8.37 10^3/uL (1.8-7.7) H 01/03/24 02:39 Lymph # (Auto) 8.5 10^3/uL (0.8-4.8) H 01/03/24 02:39 [place] # (Auto) 1.6 10^3/uL (0.2-0.9) H 01/03/24 02:39 Eos # (Auto) 0.1 10^3/uL (0.0-0.8) 01/03/24 02:39 Baso # (Auto) 0.1 10^3/uL (0.0-0.1) 01/03/24 02:39 Nucleated RBC % (auto) 0 % 01/03/24 02:39 Nucleated RBCs # 0.0 /100WBC 01/03/24 02:39 PT 12.40 SECONDS (12.1-14.9) 01/03/24 02:39 INR 0.90 (0.8-1.2) 01/03/24 02:39 Sodium 140 mmol/L (136-145) 01/03/24 02:39 Potassium 3.3 mmol/L (3.5-5.1) L 01/03/24 02:39 Chloride 101 mmol/L (98-107) 01/03/24 02:39 Carbon Dioxide 24 mmol/L (22-29) 01/03/24 02:39 Anion Gap 18.3 (5-19) 01/03/24 02:39 BUN 10 mg/dL (6-20) 01/03/24 02:39 Creatinine 0.8 mg/dL (0.7-1.2) 01/03/24 02:39 GFR Calculation 108.8 mL/min (90-130) 01/03/24 02:39 Glucose 88 mg/dL (65-115) 01/03/24 02:39 Calculated Osmolality 288 mOsm/kg (285-295) 01/03/24 02:39 Lactic Acid 1.7 mmol/L (0.5-2.2) 01/03/24 02:39 Calcium 9.3 mg/dL (8.5-10.5) 01/03/24 02:39 Total Bilirubin 0.3 mg/dL (0.15-1.2) 01/03/24 02:39 AST 46 U/L (0-40) H 01/03/24 02:39 ALT 70 U/L (0-41) H 01/03/24 02:39 Alkaline Phosphatase 170 U/L (40-130) H 01/03/24 02:39 Troponin T Baseline < 6 ng/L (0-15) 01/03/24 02:39 Troponin T 120 Minute 6.49 ng/L (0-15) 01/03/24 04:47 Delta Troponin T 0.53109 ABS# (0-10) 01/03/24 04:47 C-Reactive Protein 3.0 mg/L (0.0-4.9) 01/03/24 02:39 NT-Pro-B Natriuret Pep 53 pg/mL (0-125) 01/03/24 02:39 Total Protein 7.3 g/dL (6.6-8.7) 01/03/24 02:39 Albumin 4.0 g/dL (3.5-5.2) 01/03/24 02:39 Globulin 3.3 g/dL (1.3-4.6) 01/03/24 02:39 Lipase 120 U/L (13-60) H 01/03/24 02:39 Urine Color Yellow (Yellow) 01/03/24 03:41 Urine Appearance Clear (CLEAR) 01/03/24 03:41 Urine pH 6 (5-7) 01/03/24 03:41 Ur Specific [place] 1.020 (1.005-1.030) 01/03/24 03:41 Urine Protein Neg (Negative) 01/03/24 03:41 Urine Glucose (UA) Norm (Normal) 01/03/24 03:41 Urine Ketones Negative (Negative) 01/03/24 03:41 Urine Blood Neg (Negative) 01/03/24 03:41 Urine Nitrate Negative (Negative) 01/03/24 03:41 Urine Bilirubin Neg (Negative) 01/03/24 03:41 Urine Urobilinogen Neg mg/dL (Negative) 01/03/24 03:41 Ur Leukocyte Esterase Negative (Negative) 01/03/24 03:41 Urine Opiates Screen Positive ng/mL (Negative) H 01/03/24 03:41 Ur Barbiturates Screen Negative ng/mL (Negative) 01/03/24 03:41 Ur Phencyclidine Scrn Negative ng/mL (Negative) 01/03/24 03:41 Ur Amphetamines Screen Negative ng/mL (Negative) 01/03/24 03:41 U Benzodiazepines Scrn Negative ng/mL (Negative) 01/03/24 03:41 Urine Cocaine Screen Negative ng/mL (Negative) 01/03/24 03:41 U Marijuana (THC) Screen Positive ng/mL (Negative) H 01/03/24 03:41 Ethyl Alcohol < 10 mg/dL (0-10) 01/03/24 02:39 All radiology interpretation(s) finalized by discharge Discharge Plan Discharge Patient Disposition: Admitted As Inpatient Admit Provider: Fernando Hooper Clinical Impression: Acute pancreatitis, Abdominal pain Condition: Stable Coding Level of Care Code ED Mechanical Manufacturing Engineer for Marko Avery
[2024-01-03 03:49] LABS: Bilirubin Urine Neg (Negative); Blood Urine Neg (Negative); Glucose Urine UA Norm (Normal); Ketones Urine Negative (Negative); Leukocyte Esterase Urine Negative (Negative); Nitrate Urine Negative (Negative); Protein Urine Neg (Negative); Urine Appearance Clear (CLEAR); Urine Color Yellow (Yellow); Urobilinogen Urine Neg (Negative); pH Urine 6 (5-7)
[2024-01-03] MEDS: iohexol 350 mg/mL 500 mL Btl (per mL) IV (03:49)
[2024-01-03 03:54] LABS: Troponin(5th) Baseline < 6 ng/L (0-15)
[2024-01-03 03:59] LABS: Amphetamines Screen Urine Negative (Negative); Barbiturates Screen Urine Negative (Negative); Benzodiazepines Screen Urine Negative (Negative); Cocaine Screen Urine Negative (Negative); Opiate Screen Urine Positive (Negative); PCP Screen Urine Negative (Negative); THC Screen Urine Positive (Negative)
[2024-01-03 04:01] LABS: NT Pro B Type Natriuretic Pept 53 pg/mL (0-125)
--- NOTE | 2024-01-03 04:06 | ECG_ITS ---
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 Measurements Intervals [place] Rate: 74 P: 59 SC: 153 QRS: 50 QRSD: 95 T: 49 QT: 410 QTc: 455 Interpretive Statements SINUS RHYTHM POSSIBLE LEFT ATRIAL ENLARGEMENT [-0.1mV P-WAVE IN V1/V2] POSSIBLE RIGHT VENTRICULAR CONDUCTION DELAY [RSR (QR) IN V1/V2] Compared to ECG 12/29/2023 22:41:44 Myocardial infarct finding no longer present Electronically Signed On 01-03-2024 11:41:38 CDT by Cristian Nguyen M.D. [id number]
[2024-01-03] MEDS: HYDROmorphone 1 mg/mL INJ 1 mL IVP ×3 (04:33→20:01)
[2024-01-03 05:11] LABS: Troponin 5 2HR 6.49 ng/L (0-15); Troponin 5 2HR Delta 0.49001 ABS# (0-10)
[2024-01-03] MEDS: haloperidol inj 5 mg/mL INJ 1 mL IVP (05:15)
--- NOTE | 2024-01-03 06:03 | P.HP_ITS ---
Providers/Chief Complaint 2 Primary Care Provider: Mahamed Sales MD Chief Complaint: abd pain History of Present Illness 38-year-old gentleman with history of pancreatitis, with recent admission with pancreatitis, was also started on steroid for pleurisy, states that over the last several days his symptoms have returned without abdominal pain, nausea and vomiting, in ER he is holding onto his upper abdomen, appears in pain and uncomfortable. CT abdomen pelvis obtained, noted small pseudocysts, loculated perihepatic fluid collection as previously as well as pancreatitis changes. He states he is doing better in terms of not drinking alcohol. Review of Systems 2 Const: Reports: change in appetite; Denies: fever(s), chills, body aches or malaise Eyes: Denies: change in vision ENMT: Denies: throat pain Card: Denies: chest pain, edema, pre-syncope or dyspnea on exertion Resp: Reports: pain on inspiration; Denies: dyspnea, productive cough, change in phlegm color or hemoptysis GI: Reports: abdominal pain, nausea and vomiting; Denies: diarrhea, constipation, hematochezia or melena : Denies: flank pain, difficulty urinating, urinary frequency or hematuria Musc: Denies: back pain, joint swelling or joint redness Skin/Breast: Denies: rash or new lesions Neuro: Denies: headache(s) or confusion Medications/Allergies Home Medications Medication Instructions Recorded Confirmed Last Taken Type amlodipine 5 mg tablet 5 mg PO DAILY #90 tabs 03/03/23 12/23/23 12/22/23 Rx folic acid 1 mg tablet 1 mg PO DAILY #90 tabs 03/03/23 12/23/23 12/22/23 Rx multivitamin with folic acid 400 1 tab PO DAILY #90 tabs 03/03/23 12/23/23 12/22/23 Rx mcg tablet (Thera) thiamine mononitrate (vit B1) 100 100 mg PO DAILY #90 tabs 03/03/23 12/23/23 12/22/23 Rx mg tablet (Vitamin B-1 (mononitrate)) pantoprazole 40 mg tablet,delayed 80 mg PO DAILY 05/25/23 12/23/23 12/22/23 History release (Protonix) aspirin 81 mg chewable tablet 81 mg PO DAILY 06/22/23 12/23/23 12/22/23 History (Children's Aspirin) potassium citrate 99 mg capsule 99 mg PO DAILY 10/06/23 12/23/23 12/22/23 History ipratropium bromide 21 mcg (0.03 2 spray intranasal BID 10/31/23 12/23/23 12/22/23 History %) nasal spray levocetirizine 5 mg tablet 5 mg PO DAILY 10/31/23 12/23/23 12/22/23 History naproxen 500 mg tablet (Naprosyn) 500 mg PO BID PRN pain #20 tabs 11/10/23 12/23/23 Unknown Rx atomoxetine 60 mg capsule 60 mg PO DAILY #30 caps 11/17/23 12/23/23 12/22/23 Rx buspirone 10 mg tablet 10 mg PO BID #60 tabs 11/17/23 12/23/23 12/22/23 Rx sertraline 100 mg tablet (Zoloft) 150 mg (1.5 x 100 mg) PO DAILY #45 11/17/23 12/23/23 12/22/23 Rx tabs lisinopril 20 mg tablet 20 mg PO DAILY 12/23/23 12/23/23 12/22/23 History magnesium 250 mg tablet 250 mg PO .QOD 12/23/23 12/23/23 12/22/23 History mirtazapine 30 mg tablet (Remeron) 30 mg PO BEDTIME 12/23/23 12/23/23 12/22/23 History ondansetron 4 mg disintegrating 4 mg PO BID PRN Nausea And Vomiting 12/23/23 12/23/23 Unknown History tablet hydrocodone 5 mg-acetaminophen 325 1 tab PO Q8H PRN pain #20 tabs 12/25/23 Unknown Rx mg tablet ondansetron HCl 4 mg tablet 4 mg PO Q8H PRN nausea and 12/25/23 Unknown Rx vomiting #10 tabs dexamethasone 6 mg tablet 6 mg PO DAILY 5 days #5 tabs 12/30/23 Unknown Rx naltrexone 50 mg tablet 50 mg PO DAILY #30 tabs 01/01/24 Unknown Rx Allergies Allergy/AdvReac Type Severity Reaction Status Date / Time piperacillin [From Zosyn] Allergy ADR-Swelling Verified 12/24/23 15:54 of the Eye tazobactam [From Zosyn] Allergy ADR-Swelling Verified 12/24/23 15:54 of the Eye PFSH Acute 2 PFSH: Medical History (Updated 01/03/24 @ 06:16 by Fernando Hooper MD) Acute pancreatitis Drug allergy Acute chest wall pain Acute pancreatitis Generalized anxiety disorder History of ADHD Cannabis use disorder Psychiatric care Tobacco use Hypomagnesemia Hepatomegaly Transaminitis Alcohol intoxication Alcoholism Esophagitis Alcohol intoxication Acute pancreatitis Pseudocyst of pancreas Polysubstance abuse History of suicide attempt C7 cervical fracture C2 cervical fracture L4 vertebral fracture Alcohol abuse PTSD (post-traumatic stress disorder) Elevated transaminase level Pancreatitis, alcoholic, acute Surgical History History of appendectomy History of splenectomy Family History Other Diabetes Social History Smoking and tobacco/nicotine status: current every day tobacco/nicotine user Alcohol intake: current Alcohol intake frequency: 3 or more drinks per day Alcohol type: hard liquor Substance/Drug Use: current Substance/Drug use frequency: daily Vitals/I&O/Wt Last Vital Signs Temp 97.8 F 01/03/24 03:07 Pulse 78 01/03/24 04:33 Resp 16 01/03/24 04:33 BP 173/106 01/03/24 04:33 Pulse Ox 96 01/03/24 04:33 O2 Del Method Room Air 01/03/24 03:05 Weight last 48 hrs Weight 86.183 kg Physical Exam 2 Narrative: Bent over in bed holding onto his epigastrium. Const: COMMON NORMALS: patient oriented x3 and alert GENERAL APPEARANCE: c ooperative ORIENTATION/CONSCIOUSNESS: Yes awake HENMT: COMMON NORMALS: oropharynx normal Neck/C-Spine: COMMON NORMALS: no JVD Resp: COMMON NORMALS: normal respiratory effort and clear to auscultation bilaterally AUSCULTATION: clear to auscultation bilaterally Cardio: COMMON NORMALS: no JVD, regular rhythm, S1 normal heart sound present, S2 normal heart sound present and No murmurs present (Cardio) RHYTHM: regular rhythm HEART SOUNDS: S1 normal heart sound present and S2 normal heart sound present GI: COMMON NORMALS: Normal to inspection, nondistended, normoactive bowel sounds present and Soft to palpation PALPATION: Yes Tenderness to palpation present (GI) Extremity: COMMON NORMALS: no joint enlargement and no pedal edema Neuro: COMMON NORMALS: patient oriented x3 and moves all extremities S ENSORIUM/ORIENTATION: Yes alert Skin: COMMON NORMALS: no rashes or lesions noted GENERAL SKIN EXAM: no rashes or lesions noted Data 01/03/24 02:39 01/03/24 02:39 A&P Assessment and plan (1) Acute pancreatitis: Recent admission with acute pancreatitis, returns with abdominal pain, nausea and vomiting, pancreatitis on CT.Pancreatitis with systemic symptoms with severe abdominal pain, nausea vomiting, inability to tolerate oral intake. possible additional component of gastritis. Reviewed vitals, CBC, INR, CMP, troponin, CRP, lipase, UA, UDS, CT abdomen pelvis, EKG on my interpretation without signs of acute DE, pending official read, ER note, discussed with ER provider. Reviewed triglycerides from prior admission. Calcium. Gallbladder ultrasound. Discussed with him suspicion for pancreatitis, with recurrence of pancreatitis lipase may not be elevated to be expected range with acute pancreatitis. Although he so far denies chronic diarrhea to suggest malabsorption. Currently will maintain n.p.o. as per discussion with him with sips, chips, meds, IV hydration, antiemetic, he is in quite a bit of pain, requiring IV Dilaudid for severe pain. He has an appointment with gastroenterology in [place] although has not yet been able to attend due to appointment changes. Encouraged him to continue efforts for abstinence from alcohol, he states he is doing better in terms of EtOH intake. Monitor for withdrawal. Continue thiamine, folic acid, multivitamin. (2) Abdominal pain: Acute pancreatitis, possible gastritis, states he is doing better in terms of EtOH intake. He is on steroid for pleurisy since last admission. Possibly contributing to gastritis. Continue PPI but currently with nausea and vomiting switch to IV. For now NPO. IV fluid hydration. Antiemetic, IV Dilaudid for pain as needed. He is also noted to have 2 pseudocyst in the pancreas, although these are rather small, less likely to be contributing to his current symptoms. Otherwise does not appear to have symptoms of sepsis or active infection, although does have leukocytosis. Follow-up blood counts. Additionally does have loculated perihepatic fluid collection. Plan Hypokalemia: Replace. Check magnesium. Attestations 2 Medical Necessity Statement*: Admission of over 2 midnights anticipated for assessment of management of acute pancreatitis, possible gastritis in a gentleman with severe pain, nausea and vomiting, intolerance of oral intake. Diagnoses Acute pancreatitis K85.90 Abdominal pain R10.9
[2024-01-03] MEDS: enoxaparin 40 mg/0.4 mL Syringe SUBCUT (06:43)
[2024-01-03] MEDS: lactated ringers 1,000 ML 100 ML IV ×2 (06:43→16:47)
[2024-01-03] MEDS: lidocaine 1% 5 ML in potassium chloride premix 100 ML 52.5 ML IV (06:46)
[2024-01-03] MEDS: pantoprazole 40 mg SDV IVP ×2 (06:46→17:31)
[2024-01-03] MEDS: thiamine 100 mg Tablet PO (07:50)
[2024-01-03] MEDS: dexamethasone 4 mg Tablet 6 MG PO (07:50)
[2024-01-03] MEDS: aspirin 81 mg Chew Tablet PO (07:50)
[2024-01-03] MEDS: amlodipine 5 mg Tablet PO (07:50)
[2024-01-03] MEDS: lisinopril 20 mg Tablet PO (07:50)
[2024-01-03] MEDS: BuSPIRONE 10 mg Tablet PO ×2 (07:51→16:46)
[2024-01-03] MEDS: multivitamin therapeutic Tablet 1 TAB PO (07:51)
[2024-01-03] MEDS: folic acid 1 mg Tablet PO (07:51)
[2024-01-03] MEDS: sertraline 100 mg Tablet 150 MG PO (07:51)
[2024-01-03] MEDS: HYDROcodone-acetaminophen 5-325 mg Tablet 1 TAB PO ×2 (07:51→17:34)
--- NOTE | 2024-01-03 08:23 | ECG_ITS ---
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 Measurements Intervals [place] Rate: 60 P: 59 [place]: 137 QRS: 57 QRSD: 93 T: 68 QT: 452 QTc: 454 Interpretive Statements SINUS RHYTHM POSSIBLE LEFT ATRIAL ENLARGEMENT [-0.1mV P-WAVE IN V1/V2] MODERATE T-WAVE ABNORMALITY, CONSIDER ANTERIOR ISCHEMIA [-0.1+ mV T-WAVE IN V3/V4] Compared to ECG 01/03/2024 04:06:37 T-wave abnormality now present Possible ischemia now present Electronically Signed On 01-03-2024 11:47:31 CDT by Cristian Nguyen M.D. [id number]
[2024-01-03 08:59] LABS: Troponin 5 6HR 6.26 ng/L (0-15); Troponin 5 6HR Delta 0.26001 ng/L (0-12)
[2024-01-03 09:02] LABS: Magnesium 1.7 mg/dL (1.7-2.3)
--- NOTE | 2024-01-03 11:16 | PM.MISC ---
Miscellaneous Note Note: I do not see signs of necrotic pancreas or fever or sepsis There is pseudocyst at the pancreatic neck and head In case of further worsening patient is agreeable to get transferred to [facility] for GI versus IR guided drainage of pseudocyst I will continue opioids Drug screen noted for opioids and marijuana Patient is stating that his pain is 10 out of 10 He is n.p.o. Continue IV fluids Add Zosyn
[2024-01-03] MEDS: aztreonam 2,000 MG in sodium chloride 0.9% (plus) 100 ML 200 MG IV ×2 (12:08→23:58)
[2024-01-04] VITALS (11 sets, daily range): BP systolic 131–157; BP diastolic 76–92; PULSE 67–89; RESP 16–20; TEMP 36.4–36.9; O2SAT 94–97
[2024-01-04] MEDS: HYDROmorphone 1 mg/mL INJ 1 mL IVP ×6 (00:10→21:22)
[2024-01-04] MEDS: HYDROcodone-acetaminophen 5-325 mg Tablet 1 TAB PO ×3 (02:27→23:20)
[2024-01-04] MEDS: lactated ringers 1,000 ML 100 ML IV (02:28)
[2024-01-04 03:28] LABS: Basophils % 0.1 %; Eosinophils % 0.1 %; Hematocrit 43.4 % (37-53); Lymphocytes # 4.7 10^3/uL (0.8-4.8); Lymphocytes % 25.8 %; Mean Corpuscular HGB Conc 33.6 g/dL (30-55); Mean Corpuscular Hemoglobin 32.7 pg (27-33); Mean Corpuscular Volume 97.3 fl (82-101); Mean Platelet Volume 9.2 fL (7.4-10.4); Monocytes # 1.5 10^3/uL (0.2-0.9); Monocytes % 8.1 %; Neutrophils # 11.81 10^3/uL (1.8-7.7); Neutrophils % 65.3 %; Nucleated Red Blood Cells % 0 %; Platelet Count 546 10^3/cmm (157-399); Red Blood Count 4.46 10^6/uL (3.85-5.65); Red Cell Distribution Width 14.9 % (12.1-15.1); White Blood Count 18.09 10^3/uL (3.29-11.43)
[2024-01-04 03:56] LABS: Alanine Aminotransferase 48 U/L (0-41); Albumin Level 3.8 g/dL (3.5-5.2); Alkaline Phosphatase 160 U/L (40-130); Anion Gap 14.3 (5-19); Aspartate Amino Transferase 24 U/L (0-40); Blood Urea Nitrogen 8 mg/dL (6-20); Calcium 8.6 mg/dL (8.5-10.5); Carbon Dioxide 27 mmol/L (22-29); Chloride 101 mmol/L (98-107); Creatinine Clr Calc Pharmacy 162.7833; Globulin 2.4 g/dL (1.3-4.6); Glomerular Filtration Rate 126.9 mL/min (90-130); Glucose 96 mg/dL (65-115); Osmolality Calculated 284 mOsm/kg (285-295); Potassium 4.3 mmol/L (3.5-5.1); Sodium 138 mmol/L (136-145); Total Bilirubin 0.4 mg/dL (0.15-1.2); Total Protein 6.2 g/dL (6.6-8.7)
[2024-01-04 03:57] LABS: Lipase 59 U/L (13-60)
[2024-01-04] MEDS: enoxaparin 40 mg/0.4 mL Syringe SUBCUT (05:54)
[2024-01-04] MEDS: pantoprazole 40 mg SDV IVP ×2 (05:54→17:38)
--- NOTE | 2024-01-04 06:24 | P.PN_ITS ---
Subjective 2 Subjective: Patient has tolerated clear liquid diet Leukocytosis no gross Afebrile No abdominal gastroprotection No sign of necrotic pancreatitis or sepsis Vitals/I&O/Wt Last Vital Signs Temp 97.6 F 01/04/24 05:00 Pulse 67 01/04/24 05:00 Resp 17 01/04/24 06:12 BP 131/76 01/04/24 05:00 Pulse Ox 95 01/04/24 06:12 O2 Del Method Room Air 01/03/24 23:56 01/03/24 01/03/24 01/04/24 14:59 22:59 06:59 Intake Total 1959 / 2165 1820 / 3985 Balance 1959 1820 / 3985 Weight last 48 hrs Weight 84.822 kg Weight 86.183 kg Physical Exam 2 Narrative: Signs of dehydration improving tender abdomen S1, S2 Nonfocal neuroexam Doing well on room air Hemodynamically stable Data 01/04/24 02:19 01/04/24 02:19 A&P Assessment and plan (1) Acute pancreatitis: (2) Abdominal pain: (3) Pseudocyst, pancreas: Plan Recurrent pancreatitis There is no sign of necrotic pancreatitis or sepsis Also there is no presentation for gastric outlet obstruction At this point we are pursuing conservative management However he does need gastroenterology intervention for pseudocyst drainage I have added antibiotics to cover him empirically because of significant leukocytosis Keep him on clear liquid diet Continue opioids Full code Attestations 2 Medical Necessity Statement*: Continue medical management Diagnoses Acute pancreatitis K85.90 Abdominal pain R10.9 Pseudocyst, pancreas K86.3
[2024-01-04] MEDS: lisinopril 20 mg Tablet PO (08:54)
[2024-01-04] MEDS: dexamethasone 4 mg Tablet 6 MG PO (08:54)
[2024-01-04] MEDS: sertraline 100 mg Tablet 150 MG PO (08:54)
[2024-01-04] MEDS: aspirin 81 mg Chew Tablet PO (08:55)
[2024-01-04] MEDS: multivitamin therapeutic Tablet 1 TAB PO (08:55)
[2024-01-04] MEDS: BuSPIRONE 10 mg Tablet PO ×2 (08:55→17:38)
[2024-01-04] MEDS: thiamine 100 mg Tablet PO (08:55)
[2024-01-04] MEDS: amlodipine 5 mg Tablet PO (08:55)
[2024-01-04] MEDS: folic acid 1 mg Tablet PO (08:55)
--- NOTE | 2024-01-04 09:22 | PC.CHAP ---
Pastoral Care Encounter/Spiritual Assessment Type of Contact [] Declined sales enablement lead visit [] Patient/Family/Request visit [] Outpatient visit [] Follow-up visit [] Physician referral [] Code/Alert [x] Routine visit [] Staff referral [] Actively dying [] Patient sleeping [] Family support [] [x] Out of room [] Palliative care [] [] Receiving care in room [] Pre-surgical visit [] Trauma [] Long length of stay [] ICU visit [] Other: Relational/Emotional Strength [] Patient feels connected with others/family/visitors/staff [] Distress [] Loneliness/isolation [] Abandonment Spirituality of Patient [] Person of Mary Lou [] Attends Yazidism of their Mary Lou [] Believes in Prayer [] Reads Bible or Scientology materials [] There are Spiritual issues to be addressed Trim Mechanic Interventions [] Prayer [] Active listening [] Non-anxious presence [] Spiritual/emotional support [] Crisis/trauma care [] Spiritual counseling [] Bereavement support [] Provided bereavement packet [] Provided Bible/devotional materials [] Provided toy/stuffed animal, coloring book to patient or family member [] Provided Communion [] Anointing/[place] [] Salvation [] Completed spiritual assessment [] Other: Impact on Illness or Injury [] Angry [] Fearful [] Anxious [] Often cries [] Exhaustion [] Unable to work [] Unable to attend latter-day [] Unable to walk/stand [] Unable to read [] Unable to drive [] Unable to eat/drink [] Unable to sleep [] Unable to be with family [] Patient intubated [] Other: Summary Time spent with patient
[2024-01-04] MEDS: aztreonam 2,000 MG in sodium chloride 0.9% (plus) 100 ML 200 MG IV ×2 (10:53→23:21)
[2024-01-05 00:43] VITALS: RESP 18; O2SAT 96
[2024-01-05] MEDS: HYDROmorphone 1 mg/mL INJ 1 mL IVP ×3 (00:43→10:28)
[2024-01-05 00:50] VITALS: BP 140/80; PULSE 88; RESP 18; TEMP 36.4; O2SAT 97
[2024-01-05 05:05] VITALS: BP 134/87; PULSE 60; RESP 17; TEMP 36.4; O2SAT 99
[2024-01-05 05:10] VITALS: RESP 17; O2SAT 99
[2024-01-05 05:46] LABS: Basophils % 0.2 %; Eosinophils # 0.1 10^3/uL (0.0-0.8); Eosinophils % 0.6 %; Hematocrit 40.7 % (37-53); Lymphocytes # 6.6 10^3/uL (0.8-4.8); Lymphocytes % 39.8 %; Mean Corpuscular HGB Conc 33.7 g/dL (30-55); Mean Corpuscular Hemoglobin 33.3 pg (27-33); Mean Corpuscular Volume 98.8 fl (82-101); Mean Platelet Volume 8.6 fL (7.4-10.4); Monocytes % 6.1 %; Neutrophils % 52.8 %; Nucleated Red Blood Cells % 0 %; Platelet Count 470 10^3/cmm (157-399); Red Blood Count 4.12 10^6/uL (3.85-5.65); White Blood Count 16.49 10^3/uL (3.29-11.43)
[2024-01-05 06:06] LABS: Alanine Aminotransferase 40 U/L (0-41); Albumin Level 3.4 g/dL (3.5-5.2); Alkaline Phosphatase 135 U/L (40-130); Anion Gap 12.9 (5-19); Aspartate Amino Transferase 20 U/L (0-40); Blood Urea Nitrogen 7 mg/dL (6-20); Calcium 8.5 mg/dL (8.5-10.5); Carbon Dioxide 26 mmol/L (22-29); Chloride 103 mmol/L (98-107); Creatinine Clr Calc Pharmacy 163.5248; Globulin 2.5 g/dL (1.3-4.6); Glomerular Filtration Rate 126.9 mL/min (90-130); Glucose 98 mg/dL (65-115); Osmolality Calculated 284 mOsm/kg (285-295); Potassium 3.9 mmol/L (3.5-5.1); Sodium 138 mmol/L (136-145); Total Bilirubin 0.4 mg/dL (0.15-1.2); Total Protein 5.9 g/dL (6.6-8.7)
[2024-01-05 06:12] LABS: Lipase 30 U/L (13-60)
[2024-01-05] MEDS: enoxaparin 40 mg/0.4 mL Syringe SUBCUT (06:17)
[2024-01-05] MEDS: pantoprazole 40 mg SDV IVP (06:17)
[2024-01-05 06:21] LABS: Slide Review Slide Review Perform
[2024-01-05] MEDS: ketorolac 30 mg/mL INJ 15 MG IVP (06:21)
[2024-01-05 07:55] VITALS: BP 133/82; PULSE 66; RESP 17; TEMP 36.6; O2SAT 97
[2024-01-05] MEDS: aspirin 81 mg Chew Tablet PO (08:40)
[2024-01-05] MEDS: multivitamin therapeutic Tablet 1 TAB PO (08:41)
[2024-01-05] MEDS: HYDROcodone-acetaminophen 5-325 mg Tablet 1 TAB PO (08:41)
[2024-01-05] MEDS: lisinopril 20 mg Tablet PO (08:41)
[2024-01-05] MEDS: thiamine 100 mg Tablet PO (08:41)
[2024-01-05] MEDS: dexamethasone 4 mg Tablet 6 MG PO (08:41)
[2024-01-05] MEDS: BuSPIRONE 10 mg Tablet PO (08:41)
[2024-01-05] MEDS: folic acid 1 mg Tablet PO (08:41)
[2024-01-05] MEDS: amlodipine 5 mg Tablet PO (08:41)
[2024-01-05] MEDS: sertraline 100 mg Tablet 150 MG PO (08:41)
[2024-01-05 10:28] VITALS: RESP 16
--- NOTE | 2024-01-05 11:09 | P.DS_ITS ---
Discharge Providers Date of Admission: 01/03/24 06:05 Date of Discharge: January 05, 2024 Attending Provider at Admission: Fernando Hooper Attending Provider at Discharge: Shirley Jimenez MD Primary Care Provider: Mahamed Sales MD Diagnoses at Discharge Discharge Diagnosis (1) Acute pancreatitis: Status: Acute (2) Abdominal pain: Status: Acute (3) Pseudocyst, pancreas: Status: Acute Reason for Visit Reason for Visit: abd pain Hospital Course Hospital Course 38-year-old male who has been admitted second time for pancreatitis, CT scan is showing pseudocyst they are both below 6 cm, no sign of gastric outlet obstruction, patient did not experience any vomiting during hospitalization, he tolerated liquid diet, leukocytosis started trending down, please note on previous admission his white count was around 19,000, at that point he received steroids when he developed rash to Zosyn, I requested patient to follow-up with his GI doctor in [place], that he has an appointment next Thursday, he has persistent pseudocyst which probably will need CT-guided drainage, he did not show signs of necrotic pancreas or any sign of sepsis however he was kept on aztreonam during hospitalization. He is tolerating clear liquid diet, pain is well-managed. 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 Drug screen positive for marijuana at this time. In case he gets another evaluation in the ER I have asked patient to consider transfer to GI service in [place] from the ER. Physical Exam Narrative: Awake and alert Abdominal exam is benign GCS 15 Nonfocal neuroexam Discharge Data Studies Completed and Pending Completed Studies During Hospitalization Category Date Time Status CT angio chest w abd pel w con Stat Cat Scan 01/03/24 03:33 Completed Pending at discharge Category Date Time Status Complete Blood Count w/Auto AM LABS Lab 01/06/24 04:00 Ordered Comprehensive Metabolic Panel AM LABS Lab 01/06/24 04:00 Ordered Lipase AM LABS Lab 01/06/24 04:00 Ordered Radiology Impressions Chest/Abdomen/Pelvis CT 01/03/24 03:33 IMPRESSION: 1. No acute findings. 2. Redemonstrated pulmonary nodules including a 6 mm right upper lobe pulmonary nodule. For patients at low risk (minimal or absent history of smoking and of other known risk factors), recommend CT Chest at 3-6 months, then consider CT Chest at 18-24 months. For patients at high risk (history of smoking or of other known risk factors), recommend CT Chest at 3-6 IMPRESSION: 1. Redemonstrated sequela of pancreatitis with similar pseudocyst in the pancreatic neck and mildly increased size of a pseudocyst in the pancreatic head. 2. Mildly decreased volume and organization of some loculated fluid tracking along the right hepatic lobe, though there is slightly increased fluid tracking along the upper caudate lobe of the liver. 3. Inflammatory changes about the hepatic flexure are slightly improved. COMMENTS: Consistent with the [employer]'s Incidental Findings Committee white paper (J Am Ruth Radiol 2018): Any incidental renal lesion less than 1 cm or classified as too small to characterize, or any incidental cystic renal lesion characterized as simple-appearing, is likely benign. No follow-up imaging is recommended for these lesions per consensus recommendations based on imaging criteria. Laboratory Results WBC 16.49 10^3/uL (3.29-11.43) H 01/05/24 05:36 RBC 4.12 10^6/uL (3.85-5.65) 01/05/24 05:36 Hgb 13.70 g/dL (11.27-16.99) 01/05/24 05:36 Hct 40.7 % (37-53) 01/05/24 05:36 MCV 98.8 fl (82-101) 01/05/24 05:36 MCH 33.3 pg (27-33) H 01/05/24 05:36 MCHC 33.7 g/dL (30-55) 01/05/24 05:36 RDW 15.0 % (12.1-15.1) 01/05/24 05:36 Plt Count 470 10^3/cmm (157-399) H 01/05/24 05:36 MPV 8.6 fL (7.4-10.4) 01/05/24 05:36 Neut % (Auto) 52.8 % 01/05/24 05:36 Lymph % (Auto) 39.8 % 01/05/24 05:36 [place] % (Auto) 6.1 % 01/05/24 05:36 Eos % (Auto) 0.6 % 01/05/24 05:36 Baso % (Auto) 0.2 % 01/05/24 05:36 Neut # (Auto) 8.70 10^3/uL (1.8-7.7) H 01/05/24 05:36 Lymph # (Auto) 6.6 10^3/uL (0.8-4.8) H 01/05/24 05:36 [place] # (Auto) 1.0 10^3/uL (0.2-0.9) H 01/05/24 05:36 Eos # (Auto) 0.1 10^3/uL (0.0-0.8) 01/05/24 05:36 Baso # (Auto) 0.0 10^3/uL (0.0-0.1) 01/05/24 05:36 Nucleated RBC % (auto) 0 % 01/05/24 05:36 Nucleated RBCs # 0.0 /100WBC 01/05/24 05:36 PT 12.40 SECONDS (12.1-14.9) 01/03/24 02:39 INR 0.90 (0.8-1.2) 01/03/24 02:39 Sodium 138 mmol/L (136-145) 01/05/24 05:36 Potassium 3.9 mmol/L (3.5-5.1) 01/05/24 05:36 Chloride 103 mmol/L (98-107) 01/05/24 05:36 Carbon Dioxide 26 mmol/L (22-29) 01/05/24 05:36 Anion Gap 12.9 (5-19) 01/05/24 05:36 BUN 7 mg/dL (6-20) 01/05/24 05:36 Creatinine 0.7 mg/dL (0.7-1.2) 01/05/24 05:36 GFR Calculation 126.9 mL/min (90-130) 01/05/24 05:36 Glucose 98 mg/dL (65-115) 01/05/24 05:36 Calculated Osmolality 284 mOsm/kg (285-295) L 01/05/24 05:36 Lactic Acid 1.7 mmol/L (0.5-2.2) 01/03/24 02:39 Calcium 8.5 mg/dL (8.5-10.5) 01/05/24 05:36 Magnesium 1.7 mg/dL (1.7-2.3) 01/03/24 08:35 Total Bilirubin 0.4 mg/dL (0.15-1.2) 01/05/24 05:36 AST 20 U/L (0-40) 01/05/24 05:36 ALT 40 U/L (0-41) 01/05/24 05:36 Alkaline Phosphatase 135 U/L (40-130) H 01/05/24 05:36 Troponin T Baseline < 6 ng/L (0-15) 01/03/24 02:39 Troponin T 120 Minute 6.49 ng/L (0-15) 01/03/24 04:47 Delta Troponin T 0.68220 ABS# (0-10) 01/03/24 04:47 Troponin T Hi Sens 6Hr 6.26 ng/L (0-15) 01/03/24 08:35 Troponin T Hi Sens 6Hr Delta 0.54963 ng/L (0-12) 01/03/24 08:35 C-Reactive Protein 3.0 mg/L (0.0-4.9) 01/03/24 02:39 NT-Pro-B Natriuret Pep 53 pg/mL (0-125) 01/03/24 02:39 Total Protein 5.9 g/dL (6.6-8.7) L 01/05/24 05:36 Albumin 3.4 g/dL (3.5-5.2) L 01/05/24 05:36 Globulin 2.5 g/dL (1.3-4.6) 01/05/24 05:36 Lipase 30 U/L (13-60) 01/05/24 05:36 Urine Color Yellow (Yellow) 01/03/24 03:41 Urine Appearance Clear (CLEAR) 01/03/24 03:41 Urine pH 6 (5-7) 01/03/24 03:41 Ur Specific [place] 1.020 (1.005-1.030) 01/03/24 03:41 Urine Protein Neg (Negative) 01/03/24 03:41 Urine Glucose (UA) Norm (Normal) 01/03/24 03:41 Urine Ketones Negative (Negative) 01/03/24 03:41 Urine Blood Neg (Negative) 01/03/24 03:41 Urine Nitrate Negative (Negative) 01/03/24 03:41 Urine Bilirubin Neg (Negative) 01/03/24 03:41 Urine Urobilinogen Neg mg/dL (Negative) 01/03/24 03:41 Ur Leukocyte Esterase Negative (Negative) 01/03/24 03:41 Urine Opiates Screen Positive ng/mL (Negative) H 01/03/24 03:41 Ur Barbiturates Screen Negative ng/mL (Negative) 01/03/24 03:41 Ur Phencyclidine Scrn Negative ng/mL (Negative) 01/03/24 03:41 Ur Amphetamines Screen Negative ng/mL (Negative) 01/03/24 03:41 U Benzodiazepines Scrn Negative ng/mL (Negative) 01/03/24 03:41 Urine Cocaine Screen Negative ng/mL (Negative) 01/03/24 03:41 U Marijuana (THC) Screen Positive ng/mL (Negative) H 01/03/24 03:41 Ethyl Alcohol < 10 mg/dL (0-10) 01/03/24 02:39 Vitals Last Vital Signs Temp 97.9 F 01/05/24 07:55 Pulse 66 01/05/24 07:55 Resp 16 01/05/24 10:28 BP 133/82 01/05/24 07:55 Pulse Ox 97 01/05/24 07:55 O2 Del Method Room Air 01/05/24 07:55 Discharge Plan Discharge Patient Disposition: Home Condition: Stable Prescriptions: Continued pantoprazole [Protonix] 40 mg tablet,delayed release (DR/EC) 80 mg PO DAILY aspirin [Children's Aspirin] 81 mg tablet,chewable 81 mg PO DAILY buspirone 10 mg tablet 10 mg PO BID Qty: 60 1RF atomoxetine 60 mg capsule 60 mg PO DAILY Qty: 30 1RF sertraline [Zoloft] 100 mg tablet 150 mg PO DAILY Qty: 45 1RF naltrexone 50 mg tablet 50 mg PO DAILY Qty: 30 1RF levocetirizine 5 mg tablet 5 mg PO DAILY naproxen [Naprosyn] 500 mg tablet 500 mg PO BID PRN (Reason: pain) Qty: 20 0RF lisinopril 20 mg tablet 20 mg PO DAILY magnesium 250 mg tablet 250 mg PO .QOD dexamethasone 6 mg tablet 6 mg PO DAILY 5 Days Qty: 5 0RF Rx Instructions: x 5 days started 12/30/2023 folic acid 1 mg Tablet 1 mg PO DAILY Qty: 90 0RF thiamine mononitrate (vit B1) [Vitamin B-1 (mononitrate)] 100 mg Tablet 100 mg PO DAILY Qty: 90 0RF multivitamin with folic acid [Thera] 400 mcg Tablet 1 tab PO DAILY Qty: 90 0RF amlodipine 5 mg tablet 5 mg PO DAILY Qty: 90 0RF potassium citrate 99 mg Capsule 99 mg PO DAILY Discharge Orders: Discharge Order (Routine); Ordered 01/05/24 Ordered By: Shirley Jimenez Referrals: Mahamed Sales MD [Primary Care Provider] - 01/11/24 12:00 pm Patient Instructions: Opioid Safety Discharge Attestations Time Spent in Discharge Care*: greater than 30 min Status at Discharge: Cognitive status at discharge: cognitively intact , Behavioral status at discharge: cooperative , Quality Metrics Clinical Quality Measures [ No reported AMI, CVA or VTE this stay] Coding Level of Care Code Acute Code for [facility] Fwd Diagnoses Acute pancreatitis K85.90 Abdominal pain R10.9 Pseudocyst, pancreas K86.3
== END 2024-01-05 11:27 | disposition home or self-care (01) | DRG 439 ==
LOC: ER 03:49 → MEDSURG 06:13
PROVIDERS: Admitting Provider Internal Medicine; Emergency Provider Emergency Medicine; PCP Family Medicine; Visit Provider Internal Medicine
DX: K85.90 Acute pancreatitis without necrosis or infection, unspecified (principal); K86.2 Cyst of pancreas; E87.6 Hypokalemia; K29.70 Gastritis, unspecified, without bleeding; E86.0 Dehydration; F12.90 Cannabis use, unspecified, uncomplicated; F17.210 Nicotine dependence, cigarettes, uncomplicated; F10.20 Alcohol dependence, uncomplicated; F41.1 Generalized anxiety disorder; L27.1 Localized skin eruption due to drugs and medicaments taken internally; T36.0X5A Adverse effect of penicillins, initial encounter; Y92.239 Unspecified place in hospital as the place of occurrence of the external cause
CPT/HCPCS: 36415; 71275; 74177; 80053; 80306; 80307; 81003; 83605; 83690; 83735; 83880; 84484; 85025; 85610; 86140; 93005; 96372; 96374; 96375; 96376; 99285; C9113; J1170; J1630; J1650; J1885; J2405; J3480; J3490; J7120; J8540; Q9967

== ENCOUNTER 2024-01-19 16:02 | Emergency (ER) | payer MEDICAID, SELFPAY ==
--- NOTE | 2024-01-19 16:05 | ECG_ITS ---
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 Measurements Intervals [place] Rate: 102 P: 44 SD: 155 QRS: 50 QRSD: 85 T: 57 QT: 342 QTc: 446 Interpretive Statements SINUS TACHYCARDIA ABNORMAL RHYTHM ECG Compared to ECG 01/03/2024 08:23:25 Sinus rhythm no longer present T-wave abnormality no longer present Possible ischemia no longer present Electronically Signed On 01-22-2024 13:24:14 CDT by Cristian Nguyen M.D. [id number]
--- NOTE | 2024-01-19 16:05 | XRR_ITS ---
PROCEDURE INFORMATION: Exam: XR Chest Exam date and time: 01/19/2024 4:12 PM Age: 38 years old Clinical indication: Cough and dyspnea; Prior surgery; Surgery date: 6+ months; Surgery type: RT clavicle; Additional info: Dyspnea/cough TECHNIQUE: Imaging protocol: Radiologic exam of the chest. Views: 1 view. COMPARISON: CT angio chest w abd pel w con 01/03/2024 3:47 AM FINDINGS: Lungs: Interval development of patchy airspace disease in the left lingula and right and left lower lobes suspicious for pneumonia. Pleural spaces: No pleural effusion. No pneumothorax. Heart/Mediastinum: Stable mild enlargement of the cardiac silhouette. Mediastinal contours are unremarkable. Bones/joints: Stable changes consistent with a right clavicular fracture repair. XR/XR chest 1V portable [id number] IMPRESSION: 1. Interval development of patchy airspace disease in the left lingula and right and left lower lobes suspicious for pneumonia. Recommend followup chest imaging to insure resolution of these findings. 2. Incidental/nonacute findings are listed in the report.
[2024-01-19 16:09] VITALS: BP 114/76; PULSE 97; RESP 18; TEMP 36.7; O2SAT 99; BMI 25.4
--- NOTE | 2024-01-19 16:15 | ED_ITS ---
Documented by User: Isael Noble DO 01/21/24 06:51 HPI - Abdominal Pain 2 General: Chief Complaint: Abdominal Pain Stated Complaint: upper right abd pain, SOB Time Seen by Provider: 01/19/24 16:05 Source: patient Mode of arrival: ambulatory History of Present Illness: 38-year-old male presents emergency room with complaints of right upper quadrant abdominal pain and shortness of breath. Patient reports abdominal pain that began yesterday along with right-sided chest pain and flank pain. He denies any dysuria urgency or frequency. No nausea no vomiting denies any medic easy melena hematemesis coffee-ground emesis. Has had recurrent episodes of chronic pancreatitis. He is a former drinker he states he quit drinking about 18 months ago he was drinking up to 1/5 a day. He did drink 2 shots today for pain relief. He also reports a low-grade fever at home. MD elicited complaint: abdominal pain Location: RUQ and R flank Severity: moderate Quality: cramping Exacerbating factors: nothing Relieving factors: nothing Associated Symptoms: Reports poor appetite; Denies anorexia, belching, bloating, change in bowel habits, change in stool character, chills, coffee ground emesis, constipation, GI cramping, diarrhea, dyspepsia, dysuria, excessive flatus, fever(s), heartburn, hematochezia, hematuria, hematemesis, fecal incontinence, loose stools, melena, nausea, syncope and vomiting Review of Systems 2 Const: Denies: fever(s) or chills Card: Denies: chest pain or syncope Resp: Denies: dyspnea GI: Denies: abdominal pain, nausea, vomiting, hematemesis, coffee ground emesis, heartburn, diarrhea, constipation, bloating, GI cramping, belching, excessive flatus, fecal incontinence, change in bowel habits, change in stool character, hematochezia or melena : Denies: dysuria, urinary frequency, urinary urgency or hematuria Musc: Denies: neck pain or back pain Skin/Breast: Denies: rash PFSH ED 2 PFSH: Medical History Generalized anxiety disorder Cannabis use disorder Pseudocyst, pancreas Abdominal pain Acute pancreatitis Drug allergy Acute chest wall pain Acute pancreatitis History of ADHD Psychiatric care Tobacco use Hypomagnesemia Hepatomegaly Transaminitis Alcohol intoxication Alcoholism Esophagitis Alcohol intoxication Acute pancreatitis Pseudocyst of pancreas Polysubstance abuse History of suicide attempt C7 cervical fracture C2 cervical fracture L4 vertebral fracture Alcohol abuse PTSD (post-traumatic stress disorder) Elevated transaminase level Pancreatitis, alcoholic, acute Surgical History History of appendectomy History of splenectomy Family History Other Diabetes Social History Smoking and tobacco/nicotine status: current every day tobacco/nicotine user Alcohol intake: current Alcohol intake frequency: 3 or more drinks per day Alcohol type: hard liquor Substance/Drug Use: current Substance/Drug use frequency: daily Physical Exam 2 Const: GENERAL APPEARANCE: cooperative and comfortable O RIENTATION/CONSCIOUSNESS: Yes awake, Yes oriented to person, Yes oriented to place and Yes oriented to time HENMT: COMMON NORMALS: normocephalic, atraumatic and hearing grossly normal bilaterally HEAD & SCALP: normocephalic and atraumatic Resp: COMMON NORMALS: normal respiratory effort, No retractions, No use of accessory muscles and clear to auscultation bilaterally AUSCULTATION: clear to auscultation bilaterally Cardio: COMMON NORMALS: regular rate, regular rhythm and No murmurs present (Cardio) RATE: regular rate RHYTHM: regular rhythm GI: COMMON NORMALS: No hepatosplenomegaly present AUSCULTATION: Yes normoactive bowel sounds PALPATION: Yes Tenderness to palpation present (GI) Details: RUQ, No Guarding due to palpation present (GI) and Yes No hepatosplenomegaly present Extremity: COMMON NORMALS: normal to inspection, capillary refill normal, no clubbing, cyanosis or edema, no calf tenderness and no pedal edema Neuro: SENSORIUM/ORIENTATION: Yes oriented to person, Yes oriented to place and Yes oriented to time Skin: COMMON NORMALS: no rashes or lesions noted GENERAL SKIN EXAM: no rashes or lesions noted Course 2 Vital Signs: Vital signs: Vital Signs Temperature 98.0 F 01/19/24 16:09 Pulse Rate 105 H 01/19/24 20:25 Respiratory Rate 19 H 01/19/24 20:25 Blood Pressure 105/65 01/19/24 20:25 Pulse Oximetry 96 01/19/24 20:25 Oxygen Delivery Me thod Room Air 01/19/24 16:09 MDM - Abdominal Pain Medical Decision Making Care signed out to Dr. Hutton at change of shift. See final notes for diagnosis and disposition. Care transferred to myself at shift change, lab work was reviewed as well as chest x-ray and CT scan of the abdomen pelvis. Patient had white count of 15,000, ammonia 63, lipase 72, chest x-ray showed possible lower lobe infiltrates however this was not seen on the abdomen pelvis CT scan that did not scan the bottom of the lungs. This scan just showed chronic pancreatitis. Patient was given 3 L of normal saline, and Toradol, patient get back to asking for morphine and Dilaudid by name and Stating that his family doctor and his GI doctor told him to come over here for pain medicine. He was instructed that we do not do chronic pain to the ER and we would be referring him back to his GI doctor for further management of this chronic condition. He then was persistent on asking for shot of Dilaudid and at least 10 days of oxycodone to get him by. It was again stated to him that we do not do chronic pain medicine and he should follow-up with his GI doctor for this chronic condition. Lab Data 01/19/24 16:26 01/19/24 16:26 Labs/Radiology: Radiology Impressions Chest X-Ray 01/19/24 16:05 IMPRESSION: 1. Interval development of patchy airspace disease in the left lingula and right and left lower lobes suspicious for pneumonia. Recommend followup chest imaging to insure resolution of these findings. 2. Incidental/nonacute findings are listed in the report. Abdomen/Pelvis CT 01/19/24 16:30 IMPRESSION: 1. Stable moderate inflammatory changes involving the head of the pancreas with fluid extending into Morison's pouch and along the right paracolic gutter consistent with moderate focal pancreatitis 2. Redemonstration of 3 pancreatic pseudocysts, the 2 larger pseudocysts are stable in size. The smaller has decreased in size. 3. Incidental/nonacute findings are listed in the report. COMMENTS: Consistent with the [employer]'s Incidental Findings Committee white paper (J Am Ruth Radiol 2018): Any incidental renal lesion less than 1 cm or classified as too small to characterize, or any incidental cystic renal lesion characterized as simple-appearing, is likely benign. No follow-up imaging is recommended for these lesions per consensus recommendations based on imaging criteria. Laboratory Results WBC 15.32 10^3/uL (3.29-11.43) H 01/19/24 16: RBC 4.59 10^6/uL (3.85-5.65) 01/19/24 16:26 Hgb 15.30 g/dL (11.27-16.99) 01/19/24 16: Hct 45.2 % (37-53) 01/19/24 16: MCV 98.5 fl (82-101) 01/19/24 16: MCH 33.3 pg (27-33) H 01/19/24 16: MCHC 33.8 g/dL (30-55) 01/19/24 16: RDW 14.5 % (12.1-15.1) 01/19/24 16: Plt Count 666 10^3/cmm (157-399) H 01/19/24 16: MPV 9.0 fL (7.4-10.4) 01/19/24 16: Neut % (Auto) 71.3 % 01/19/24 16: Lymph % (Auto) 20.0 % 01/19/24 16: [place] % (Auto) 7.0 % 01/19/24 16: Eos % (Auto) 1.0 % 01/19/24 16: Baso % (Auto) 0.3 % 01/19/24 16: Neut # (Auto) 10.91 10^3/uL (1.8-7.7) H 01/19/24 16:26 Lymph # (Auto) 3.1 10^3/uL (0.8-4.8) 01/19/24 16:26 [place] # (Auto) 1.1 10^3/uL (0.2-0.9) H 01/19/24 16:26 Eos # (Auto) 0.2 10^3/uL (0.0-0.8) 01/19/24 16: Baso # (Auto) 0.1 10^3/uL (0.0-0.1) 01/19/24 16:26 Nucleated RBC % (auto) 0 % 01/19/24 16:26 Nucleated RBCs # 0.0 /100WBC 01/19/24 16:26 PT 14.00 SECONDS (12.1-14.9) 01/19/24 16:26 INR 1.04 (0.8-1.2) 01/19/24 16:26 Sodium 135 mmol/L (136-145) L 01/19/24 16:26 Potassium 4.5 mmol/L (3.5-5.1) 01/19/24 16:26 Chloride 99 mmol/L (98-107) 01/19/24 16:26 Carbon Dioxide 24 mmol/L (22-29) 01/19/24 16:26 Anion Gap 16.5 (5-19) 01/19/24 16:26 BUN 17 mg/dL (6-20) 01/19/24 16:26 Creatinine 0.6 mg/dL (0.7-1.2) L 01/19/24 16:26 GFR Calculation 151.6 mL/min (90-130) H 01/19/24 16:26 Glucose 120 mg/dL (65-115) H 01/19/24 16:26 Calculated Osmolality 283 mOsm/kg (285-295) L 01/19/24 16:26 Calcium 9.3 mg/dL (8.5-10.5) 01/19/24 16:26 Total Bilirubin 0.3 mg/dL (0.15-1.2) 01/19/24 16:26 AST 13 U/L (0-40) 01/19/24 16:26 ALT 20 U/L (0-41) 01/19/24 16:26 Alkaline Phosphatase 137 U/L (40-130) H 01/19/24 16:26 Ammonia 63 umol/L (16-60) H 01/19/24 17:12 Troponin T Baseline < 6 ng/L (0-15) 01/19/24 16:26 Troponin T 120 Minute 6.00 ng/L (0-15) 01/19/24 18:08 Delta Troponin T 0.10017 ABS# (0-10) 01/19/24 18:08 Total Protein 7.7 g/dL (6.6-8.7) 01/19/24 16:26 Albumin 4.1 g/dL (3.5-5.2) 01/19/24 16:26 Globulin 3.6 g/dL (1.3-4.6) 01/19/24 16:26 Lipase 72 U/L (13-60) H 01/19/24 16:26 Procalcitonin 0.12 ng/mL (0-0.5) 01/19/24 16:26 Urine Color Yellow (Yellow) 01/19/24 19:05 Urine Appearance Clear (CLEAR) 01/19/24 19:05 Urine pH 7 (5-7) 01/19/24 19:05 Ur Specific [place] 1.010 (1.005-1.030) 01/19/24 19:05 Urine Protein Neg (Negative) 01/19/24 19:05 Urine Glucose (UA) Norm (Normal) 01/19/24 19:05 Urine Ketones Negative (Negative) 01/19/24 19:05 Urine Blood Neg (Negative) 01/19/24 19:05 Urine Nitrate Negative (Negative) 01/19/24 19:05 Urine Bilirubin Neg (Negative) 01/19/24 19:05 Urine Urobilinogen Norm mg/dL (Negative) 01/19/24 19:05 Ur Leukocyte Esterase Negative (Negative) 01/19/24 19:05 Discharge Plan Discharge Patient Disposition: Home Clinical Impression: Chronic pancreatitis Qualifiers: Pancreatitis type: unspecified pancreatitis type Qualified Code(s): K86.1 - Other chronic pancreatitis Condition: Stable Prescriptions: No Action pantoprazole [Protonix] 40 mg tablet,delayed release (DR/EC) 80 mg PO DAILY aspirin [Children's Aspirin] 81 mg tablet,chewable 81 mg PO DAILY Creon 12,000-38,000 -60,000 unit capsule,delayed release(DR/EC) 1 cap PO TID Rx Instructions: administer with meals and/or snacks buspirone 10 mg tablet 10 mg PO BID Qty: 60 1RF atomoxetine 60 mg capsule 60 mg PO DAILY Qty: 30 1RF sertraline [Zoloft] 100 mg tablet 150 mg PO DAILY Qty: 45 1RF mirtazapine [Remeron] 30 mg tablet 30 mg PO .HS Qty: 30 1RF levocetirizine 5 mg tablet 5 mg PO DAILY naproxen [Naprosyn] 500 mg tablet 500 mg PO BID PRN (Reason: pain) Qty: 20 0RF lisinopril 20 mg tablet 20 mg PO DAILY magnesium 250 mg tablet 250 mg PO .QOD folic acid 1 mg Tablet 1 mg PO DAILY Qty: 90 0RF thiamine mononitrate (vit B1) [Vitamin B-1 (mononitrate)] 100 mg Tablet 100 mg PO DAILY Qty: 90 0RF multivitamin with folic acid [Thera] 400 mcg Tablet 1 tab PO DAILY Qty: 90 0RF amlodipine 5 mg tablet 5 mg PO DAILY Qty: 90 0RF potassium citrate 99 mg Capsule 99 mg PO DAILY Discharge Orders: Discharge ED (Routine); Ordered 01/19/24 Ordered By: Christopher Hutton Referrals: Mahamed Sales MD [Primary Care Provider] - 1 week Patient Instructions: Pancreatitis (ED) Activity Restrictions/Additional Instructions: Your evaluation in the ER showed you are stable pancreatitis which is chronic. Please follow back up with your GI doctor, family practice doctor or pain management doctor for this. We do not treat chronic pain through the ER. Coding Level of Care Code ED Astronaut Mission Specialist for Chg Fwd Documented by User: Christopher Hutton DO 01/19/24 20:10 HPI - Abdominal Pain 2 General: Chief Complaint: Abdominal Pain Stated Complaint: upper right abd pain, SOB Time Seen by Provider: 01/19/24 16:05 PFS ED 2 PFSH: Medical History Generalized anxiety disorder Cannabis use disorder Pseudocyst, pancreas Abdominal pain Acute pancreatitis Drug allergy Acute chest wall pain Acute pancreatitis History of ADHD Psychiatric care Tobacco use Hypomagnesemia Hepatomegaly Transaminitis Alcohol intoxication Alcoholism Esophagitis Alcohol intoxication Acute pancreatitis Pseudocyst of pancreas Polysubstance abuse History of suicide attempt C7 cervical fracture C2 cervical fracture L4 vertebral fracture Alcohol abuse PTSD (post-traumatic stress disorder) Elevated transaminase level Pancreatitis, alcoholic, acute Surgical History History of appendectomy History of splenectomy Family History Other Diabetes Social History Smoking and tobacco/nicotine status: current every day tobacco/nicotine user Alcohol intake: current Alcohol intake frequency: 3 or more drinks per day Alcohol type: hard liquor Substance/Drug Use: current Substance/Drug use frequency: daily Course 2 Vital Signs: Vital signs: Vital Signs Temperature 98.0 F 01/19/24 16:09 Pulse Rate 105 H 01/19/24 20:25 Respiratory Rate 19 H 01/19/24 20:25 Blood Pressure 105/65 01/19/24 20:25 Pulse Oximetry 96 01/19/24 20:25 Oxygen Delivery Me thod Room Air 01/19/24 16:09 MDM - Abdominal Pain Medical Decision Making Care transferred to myself at shift change, lab work was reviewed as well as chest x-ray and CT scan of the abdomen pelvis. Patient had white count of 15,000, ammonia 63, lipase 72, chest x-ray showed possible lower lobe infiltrates however this was not seen on the abdomen pelvis CT scan that did not scan the bottom of the lungs. This scan just showed chronic pancreatitis. Patient was given 3 L of normal saline, and Toradol, patient get back to asking for morphine and Dilaudid by name and Stating that his family doctor and his GI doctor told him to come over here for pain medicine. He was instructed that we do not do chronic pain to the ER and we would be referring him back to his GI doctor for further management of this chronic condition. He then was persistent on asking for shot of Dilaudid and at least 10 days of oxycodone to get him by. It was again stated to him that we do not do chronic pain medicine and he should follow-up with his GI doctor for this chronic condition. Lab Data 01/19/24 16:26 01/19/24 16:26 Labs/Radiology: Radiology Impressions Chest X-Ray 01/19/24 16:05 IMPRESSION: 1. Interval development of patchy airspace disease in the left lingula and right and left lower lobes suspicious for pneumonia. Recommend followup chest imaging to insure resolution of these findings. 2. Incidental/nonacute findings are listed in the report. Abdomen/Pelvis CT 01/19/24 16:30 IMPRESSION: 1. Stable moderate inflammatory changes involving the head of the pancreas with fluid extending into Morison's pouch and along the right paracolic gutter consistent with moderate focal pancreatitis 2. Redemonstration of 3 pancreatic pseudocysts, the 2 larger pseudocysts are stable in size. The smaller has decreased in size. 3. Incidental/nonacute findings are listed in the report. COMMENTS: Consistent with the [employer]'s Incidental Findings Committee white paper (J Am Ruth Radiol 2018): Any incidental renal lesion less than 1 cm or classified as too small to characterize, or any incidental cystic renal lesion characterized as simple-appearing, is likely benign. No follow-up imaging is recommended for these lesions per consensus recommendations based on imaging criteria. Laboratory Results WBC 15.32 10^3/uL (3.29-11.43) H 01/19/24 16:26 RBC 4.59 10^6/uL (3.85-5.65) 01/19/24 16:26 Hgb 15.30 g/dL (11.27-16.99) 01/19/24 16:26 Hct 45.2 % (37-53) 01/19/24 16:26 MCV 98.5 fl (82-101) 01/19/24 16:26 MCH 33.3 pg (27-33) H 01/19/24 16:26 MCHC 33.8 g/dL (30-55) 01/19/24 16:26 RDW 14.5 % (12.1-15.1) 01/19/24 16:26 Plt Count 666 10^3/cmm (157-399) H 01/19/24 16:26 MPV 9.0 fL (7.4-10.4) 01/19/24 16:26 Neut % (Auto) 71.3 % 01/19/24 16:26 Lymph % (Auto) 20.0 % 01/19/24 16:26 [place] % (Auto) 7.0 % 01/19/24 16:26 Eos % (Auto) 1.0 % 01/19/24 16:26 Baso % (Auto) 0.3 % 01/19/24 16:26 Neut # (Auto) 10.91 10^3/uL (1.8-7.7) H 01/19/24 16:26 Lymph # (Auto) 3.1 10^3/uL (0.8-4.8) 01/19/24 16:26 [place] # (Auto) 1.1 10^3/uL (0.2-0.9) H 01/19/24 16:26 Eos # (Auto) 0.2 10^3/uL (0.0-0.8) 01/19/24 16:26 Baso # (Auto) 0.1 10^3/uL (0.0-0.1) 01/19/24 16:26 Nucleated RBC % (auto) 0 % 01/19/24 16: Nucleated RBCs # 0.0 /100WBC 01/19/24 16: PT 14.00 SECONDS (12.1-14.9) 01/19/24 16: INR 1.04 (0.8-1.2) 01/19/24 16:26 Sodium 135 mmol/L (136-145) L 01/19/24 16:26 Potassium 4.5 mmol/L (3.5-5.1) 01/19/24 16:26 Chloride 99 mmol/L (98-107) 01/19/24 16:26 Carbon Dioxide 24 mmol/L (22-29) 01/19/24 16:26 Anion Gap 16.5 (5-19) 01/19/24 16:26 BUN 17 mg/dL (6-20) 01/19/24 16:26 Creatinine 0.6 mg/dL (0.7-1.2) L 01/19/24 16:26 GFR Calculation 151.6 mL/min (90-130) H 01/19/24 16:26 Glucose 120 mg/dL (65-115) H 01/19/24 16:26 Calculated Osmolality 283 mOsm/kg (285-295) L 01/19/24 16:26 Calcium 9.3 mg/dL (8.5-10.5) 01/19/24 16:26 Total Bilirubin 0.3 mg/dL (0.15-1.2) 01/19/24 16:26 AST 13 U/L (0-40) 01/19/24 16:26 ALT 20 U/L (0-41) 01/19/24 16:26 Alkaline Phosphatase 137 U/L (40-130) H 01/19/24 16:26 Ammonia 63 umol/L (16-60) H 01/19/24 17:12 Troponin T Baseline < 6 ng/L (0-15) 01/19/24 16:26 Troponin T 120 Minute 6.00 ng/L (0-15) 01/19/24 18:08 Delta Troponin T 0.44313 ABS# (0-10) 01/19/24 18:08 Total Protein 7.7 g/dL (6.6-8.7) 01/19/24 16:26 Albumin 4.1 g/dL (3.5-5.2) 01/19/24 16:26 Globulin 3.6 g/dL (1.3-4.6) 01/19/24 16:26 Lipase 72 U/L (13-60) H 01/19/24 16:26 Procalcitonin 0.12 ng/mL (0-0.5) 01/19/24 16:26 Urine Color Yellow (Yellow) 01/19/24 19:05 Urine Appearance Clear (CLEAR) 01/19/24 19:05 Urine pH 7 (5-7) 01/19/24 19:05 Ur Specific [place] 1.010 (1.005-1.030) 01/19/24 19:05 Urine Protein Neg (Negative) 01/19/24 19:05 Urine Glucose (UA) Norm (Normal) 01/19/24 19:05 Urine Ketones Negative (Negative) 01/19/24 19:05 Urine Blood Neg (Negative) 01/19/24 19:05 Urine Nitrate Negative (Negative) 01/19/24 19:05 Urine Bilirubin Neg (Negative) 01/19/24 19:05 Urine Urobilinogen Norm mg/dL (Negative) 01/19/24 19:05 Ur Leukocyte Esterase Negative (Negative) 01/19/24 19:05 All radiology interpretation(s) finalized by discharge Discharge Plan Discharge Patient Disposition: Home Clinical Impression: Chronic pancreatitis Qualifiers: Pancreatitis type: unspecified pancreatitis type Qualified Code(s): K86.1 - Other chronic pancreatitis Condition: Stable Prescriptions: No Action pantoprazole [Protonix] 40 mg tablet,delayed release (DR/EC) 80 mg PO DAILY aspirin [Children's Aspirin] 81 mg tablet,chewable 81 mg PO DAILY Creon 12,000-38,000 -60,000 unit capsule,delayed release(DR/EC) 1 cap PO TID Rx Instructions: administer with meals and/or snacks buspirone 10 mg tablet 10 mg PO BID Qty: 60 1RF atomoxetine 60 mg capsule 60 mg PO DAILY Qty: 30 1RF sertraline [Zoloft] 100 mg tablet 150 mg PO DAILY Qty: 45 1RF mirtazapine [Remeron] 30 mg tablet 30 mg PO .HS Qty: 30 1RF levocetirizine 5 mg tablet 5 mg PO DAILY naproxen [Naprosyn] 500 mg tablet 500 mg PO BID PRN (Reason: pain) Qty: 20 0RF lisinopril 20 mg tablet 20 mg PO DAILY magnesium 250 mg tablet 250 mg PO .QOD folic acid 1 mg Tablet 1 mg PO DAILY Qty: 90 0RF thiamine mononitrate (vit B1) [Vitamin B-1 (mononitrate)] 100 mg Tablet 100 mg PO DAILY Qty: 90 0RF multivitamin with folic acid [Thera] 400 mcg Tablet 1 tab PO DAILY Qty: 90 0RF amlodipine 5 mg tablet 5 mg PO DAILY Qty: 90 0RF potassium citrate 99 mg Capsule 99 mg PO DAILY Discharge Orders: Discharge ED (Routine); Ordered 01/19/24 Ordered By: Christopher Hutton Referrals: Mahamed Sales MD [Primary Care Provider] - 1 week Patient Instructions: Pancreatitis (ED) Activity Restrictions/Additional Instructions: Your evaluation in the ER showed you are stable pancreatitis which is chronic. Please follow back up with your GI doctor, family practice doctor or pain management doctor for this. We do not treat chronic pain through the ER. Coding Level of Care Code ED Astronaut [employer] Specialist for Marko Avery
[2024-01-19] MEDS: ondansetron 2 mg/ML SDV 2 mL 4 MG IVP (16:29)
[2024-01-19] MEDS: sodium chloride 0.9% 1,000 ML 999 ML IV (16:29)
--- NOTE | 2024-01-19 16:30 | CTR_ITS ---
PROCEDURE INFORMATION: Exam: CT Abdomen And Pelvis With Contrast Exam date and time: 01/19/2024 4:37 PM Age: 38 years old Clinical indication: Abdominal pain; Flank; Right; Prior surgery; Surgery date: 6+ months; Surgery type: Spleen removed and partial pancreas after traumatic fall in 2014; Additional info: Abd pain TECHNIQUE: Imaging protocol: Computed tomography of the abdomen and pelvis with contrast. Sagittal and coronal reformatted images were created and reviewed. Radiation optimization: All CT scans at this facility use at least one of these dose optimization techniques: automated exposure control; mA and/or kV adjustment per patient size (includes targeted exams where dose is matched to clinical indication); or iterative reconstruction. Contrast material: OMNI 350; Contrast volume: 100 ml; Contrast route: INTRAVENOUS (IV); COMPARISON: CT angio chest w abd pel w con 01/03/2024 3:47 AM RADIATION DOSE METRICS: Total DLP (mGy-cm): 593 FINDINGS: Lungs: There is linear scarring in the right middle lobe. Pleural spaces: No pleural effusion. Heart: Stable mild enlargement of the heart. Liver: The liver is unremarkable. Gallbladder and bile ducts: The gallbladder is unremarkable. No biliary ductal dilatation. Pancreas: Stable partial pancreatectomy with resection of the distal tail of the pancreas. Stable fluid collection in the neck of the pancreas measuring 3.2 x 2.8 cm (series 6, image 39). A smaller fluid collection in the uncinate process of the pancreas has decreased in size and now measures 1.6 x 1.5 cm, previously measured 2.0 x 1.5 cm (series 3, image 42). A 3rd fluid collection extending laterally to the right from the medial head of the pancreas is also stable in size measuring 1.3 x 3.5 cm (series 3, image 40). Stable moderate inflammatory changes involving the head of the pancreas with fluid extending into Morison's pouch and along the right paracolic gutter consistent with moderate focal pancreatitis Spleen: Stable findings consistent with a previous splenectomy. Adrenal glands: The right and left adrenal glands are unremarkable. Kidneys and ureters: The right kidney is unremarkable. Subcentimeter hypodense focus in the left kidney that is too small to characterize, however likely represents a small cyst. The right and left ureters are unremarkable. Stomach and bowel: No acute abnormality in the small bowel. Ingested contents in the stomach. Appendix: Appendix not definitely visualized. No inflammatory changes in the pericecal region however. Intraperitoneal space: No free intraperitoneal air. No loculated fluid collections to suggest an abscess. Vasculature: No evidence for aortic aneurysm or aortic dissection. Hepatic veins, portal veins, and SMV are patent. The splenic vein is not visualized with small caliber varices in the left upper quadrant, this may be due to a combination of prior pancreatitis and prior splenectomy. Findings are stable. Lymph nodes: No lymphadenopathy. Urinary bladder: The bladder is unremarkable. Reproductive: Unremarkable as visualized. Bones/joints: There is a transitional vertebra at the lumbosacral junction. This is designated as L5. Soft tissues: No acute abnormality in the extra-abdominal soft tissues. CT/CT abdomen pelvis w con* [id number] IMPRESSION: 1. Stable moderate inflammatory changes involving the head of the pancreas with fluid extending into Morison's pouch and along the right paracolic gutter consistent with moderate focal pancreatitis 2. Redemonstration of 3 pancreatic pseudocysts, the 2 larger pseudocysts are stable in size. The smaller has decreased in size. 3. Incidental/nonacute findings are listed in the report. COMMENTS: Consistent with the [employer]'s Incidental Findings Committee white paper (J Am Ruth Radiol 2018): Any incidental renal lesion less than 1 cm or classified as too small to characterize, or any incidental cystic renal lesion characterized as simple-appearing, is likely benign. No follow-up imaging is recommended for these lesions per consensus recommendations based on imaging criteria.
[2024-01-19 16:34] LABS: Basophils # 0.1 10^3/uL (0.0-0.1); Basophils % 0.3 %; Eosinophils # 0.2 10^3/uL (0.0-0.8); Hematocrit 45.2 % (37-53); Lymphocytes # 3.1 10^3/uL (0.8-4.8); Mean Corpuscular HGB Conc 33.8 g/dL (30-55); Mean Corpuscular Hemoglobin 33.3 pg (27-33); Mean Corpuscular Volume 98.5 fl (82-101); Monocytes # 1.1 10^3/uL (0.2-0.9); Neutrophils # 10.91 10^3/uL (1.8-7.7); Neutrophils % 71.3 %; Nucleated Red Blood Cells % 0 %; Platelet Count 666 10^3/cmm (157-399); Red Blood Count 4.59 10^6/uL (3.85-5.65); Red Cell Distribution Width 14.5 % (12.1-15.1); White Blood Count 15.32 10^3/uL (3.29-11.43)
[2024-01-19] MEDS: iohexol 350 mg/mL 500 mL Btl (per mL) IV (16:41)
[2024-01-19] MEDS: pantoprazole 40 mg SDV 80 MG IVP (16:54)
[2024-01-19 16:56] LABS: Alanine Aminotransferase 20 U/L (0-41); Albumin Level 4.1 g/dL (3.5-5.2); Alkaline Phosphatase 137 U/L (40-130); Anion Gap 16.5 (5-19); Aspartate Amino Transferase 13 U/L (0-40); Blood Urea Nitrogen 17 mg/dL (6-20); Calcium 9.3 mg/dL (8.5-10.5); Carbon Dioxide 24 mmol/L (22-29); Chloride 99 mmol/L (98-107); Creatinine Clr Calc Pharmacy 186.4529; Globulin 3.6 g/dL (1.3-4.6); Glomerular Filtration Rate 151.6 mL/min (90-130); Glucose 120 mg/dL (65-115); Lipase 72 U/L (13-60); Osmolality Calculated 283 mOsm/kg (285-295); Potassium 4.5 mmol/L (3.5-5.1); Sodium 135 mmol/L (136-145); Total Bilirubin 0.3 mg/dL (0.15-1.2); Total Protein 7.7 g/dL (6.6-8.7)
[2024-01-19 17:07] LABS: INR 1.04 (0.8-1.2)
[2024-01-19] MEDS: ketorolac 30 mg/mL INJ IVP (17:26)
[2024-01-19 17:34] LABS: Troponin(5th) Baseline < 6 ng/L (0-15)
[2024-01-19 17:37] LABS: Ammonia 63 umol/L (16-60)
[2024-01-19 17:43] LABS: Procalcitonin 0.12 ng/mL (0-0.5)
[2024-01-19 18:37] LABS: Troponin 5 2HR Delta 0.00001 ABS# (0-10)
--- NOTE | 2024-01-19 18:49 | ECG_ITS ---
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 Measurements Intervals [place] Rate: 97 P: 48 HI: 159 QRS: 51 QRSD: 101 T: 56 QT: 343 QTc: 436 Interpretive Statements SINUS RHYTHM POSSIBLE LEFT ATRIAL ENLARGEMENT [-0.1mV P-WAVE IN V1/V2] Compared to ECG 01/19/2024 16:09:31 Sinus tachycardia no longer present Electronically Signed On 01-22-2024 13:52:54 CDT by Cristian Nguyen M.D. [id number]
--- NOTE | 2024-01-19 19:04 | PC.NURSE ---
Assumed care from Kavitha SOTO at this time.
[2024-01-19 19:05] VITALS: BP 114/76; PULSE 100; RESP 27; O2SAT 95
[2024-01-19 19:17] LABS: Add Urine Microscopic? NO; Charge for UA Resulting for Rev
[2024-01-19 19:22] LABS: Urine Appearance Clear (CLEAR); Urine Color Yellow (Yellow); pH Urine 7 (5-7)
[2024-01-19 19:23] LABS: Bilirubin Urine Neg (Negative); Blood Urine Neg (Negative); Glucose Urine UA Norm (Normal); Ketones Urine Negative (Negative); Leukocyte Esterase Urine Negative (Negative); Nitrate Urine Negative (Negative); Protein Urine Neg (Negative); Urobilinogen Urine Norm (Negative)
[2024-01-19 20:25] VITALS: BP 105/65; PULSE 105; RESP 19; O2SAT 96
== END 2024-01-19 20:22 | disposition home or self-care (01) ==
PROVIDERS: Emergency Provider Family Medicine; PCP Family Medicine
DX: K86.1 Other chronic pancreatitis (principal); Z79.82 Long term (current) use of aspirin; Z72.0 Tobacco use
CPT/HCPCS: 36415; 71045; 74177; 80053; 81003; 82140; 83690; 84145; 84484; 85025; 85610; 93005; 96374; 96375; 99285; C9113; J1885; J2405; J7030; Q9967

== ENCOUNTER 2024-01-25 00:40 | Inpatient (IN) | payer MEDICAID, SELFPAY ==
[2024-01-25] VITALS (19 sets, daily range): BP systolic 99–144; BP diastolic 56–91; PULSE 76–95; RESP 16–20; TEMP 36.3–36.8; O2SAT 92–100; BMI 26.4
[2024-01-25 01:35] LABS: Basophils # 0.1 10^3/uL (0.0-0.1); Basophils % 0.7 %; Eosinophils # 0.4 10^3/uL (0.0-0.8); Eosinophils % 2.5 %; Hematocrit 45.4 % (37-53); Lymphocytes % 36.1 %; Mean Corpuscular HGB Conc 33.7 g/dL (30-55); Mean Corpuscular Hemoglobin 32.6 pg (27-33); Mean Corpuscular Volume 96.6 fl (82-101); Mean Platelet Volume 8.4 fL (7.4-10.4); Monocytes # 1.4 10^3/uL (0.2-0.9); Monocytes % 10.3 %; Neutrophils # 6.85 10^3/uL (1.8-7.7); Neutrophils % 49.9 %; Nucleated Red Blood Cells % 0 %; Platelet Count 817 10^3/cmm (157-399); Red Cell Distribution Width 14.3 % (12.1-15.1); White Blood Count 13.75 10^3/uL (3.29-11.43)
[2024-01-25] MEDS: ondansetron 2 mg/ML SDV 2 mL 4 MG IVP (01:38)
[2024-01-25 01:52] LABS: INR 1.06 (0.8-1.2)
[2024-01-25 01:54] LABS: Ammonia 57 umol/L (16-60)
[2024-01-25 01:55] LABS: Alanine Aminotransferase 25 U/L (0-41); Albumin Level 3.8 g/dL (3.5-5.2); Alkaline Phosphatase 150 U/L (40-130); Aspartate Amino Transferase 25 U/L (0-40); Blood Urea Nitrogen 33 mg/dL (6-20); C Reactive Protein 30.8 mg/L (0.0-4.9); Calcium 9.4 mg/dL (8.5-10.5); Carbon Dioxide 20 mmol/L (22-29); Chloride 98 mmol/L (98-107); Creatine Phosphokinase 89 U/L (39-308); Creatinine Clr Calc Pharmacy 19.9909; Globulin 3.7 g/dL (1.3-4.6); Glomerular Filtration Rate 11.3 mL/min (90-130); Glucose 113 mg/dL (65-115); Lipase 69 U/L (13-60); Osmolality Calculated 290 mOsm/kg (285-295); Sodium 136 mmol/L (136-145); Total Bilirubin 0.2 mg/dL (0.15-1.2); Total Protein 7.5 g/dL (6.6-8.7)
[2024-01-25] MEDS: sodium chloride 0.9% 1,000 ML 999 ML IV ×2 (01:55→02:50)
--- NOTE | 2024-01-25 01:59 | PC.NURSE ---
pt informed of the need for a urine sample at this time
[2024-01-25 02:07] LABS: Alcohol Level < 10 mg/dL (0-10)
[2024-01-25 03:35] LABS: Creatinine Clr Calc Pharmacy 21.4997; Glomerular Filtration Rate 12.3 mL/min (90-130)
--- NOTE | 2024-01-25 03:41 | CTR_ITS ---
PROCEDURE INFORMATION: Exam: CT Abdomen And Pelvis Without Contrast Exam date and time: 01/25/2024 3:54 AM Age: 38 years old Clinical indication: Abnormal findings; Abnormal lab test; Abnormal kidney function lab tests; Prior surgery; Surgery date: 6+ months; Surgery type: Splenectomy. Appy. Patient HX: Sen with creat of 5.3. 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 ; Additional info: Acute renal failure. TECHNIQUE: Imaging protocol: Computed tomography of the abdomen and pelvis without contrast. Radiation optimization: All CT scans at this facility use at least one of these dose optimization techniques: automated exposure control; mA and/or kV adjustment per patient size (includes targeted exams where dose is matched to clinical indication); or iterative reconstruction. COMPARISON: CT abdomen pelvis w con* [id number] 19/01/2024 16:37 RADIATION DOSE METRICS: Total DLP (mGy-cm): 491.29 FINDINGS: Lungs: The visualized lung jaquez show mild linear atelectatic changes. Liver: Stable hepatomegaly. There is normal homogeneous density throughout the liver. Gallbladder and biliary ducts: No calcified gallstones. No ductal dilation. Pancreas: The distal body and tail the pancreas are surgically absent. Stable 2.6 cm fluid collection in the neck of the pancreas. No significant interval change in the fluid collection in the uncinate process. Spleen: Prior splenectomy. Adrenal glands: Normal. No mass. Kidneys and ureters: There is no hydronephrosis. No renal or obstructive ureteral calculi are identified. Stomach and bowel: Stable peripancreatic inflammatory changes predominantly around the head of the pancreas and area of the duodenal sweep with a small amount of fluid extending tumor such by urge and the right perirenal space. Mild inflammatory changes of the cecum, ascending colon and hepatic flexure, likely secondary to the presence of pancreatic fluid in the right paracolic gutter. There is no evidence of small bowel or colonic obstruction. Appendix: The appendix is surgically absent. Intraperitoneal space: No free air. No significant fluid collection. Vasculature: No abdominal aortic aneurysm. Lymph nodes: No enlarged retroperitoneal or mesenteric lymph nodes. Urinary bladder: The bladder shows a normal contour and is free of calcific opacities. Reproductive: Unremarkable as visualized. Bones/joints: No acute fracture. No evidence of bone destruction. Soft tissues: There are small bilateral nonobstructing inguinal hernias containing adipose tissue. CT/CT kidney stone [id number] IMPRESSION: 1. Stable hepatomegaly. 2. Stable pancreatic pseudocysts in the neck of the pancreas and uncinate process. 3. Peripancreatic inflammatory changes and fluid extending into Weathers's pouch, the right pararenal and perirenal spaces as well as into the right paracolic gutter. 4. No hydronephrosis. No renal or obstructive ureteral calculi. 5. Mild inflammatory changes of the cecum, ascending colon and hepatic flexure, likely secondary to the presence of pancreatic fluid in the right paracolic gutter.
--- NOTE | 2024-01-25 04:03 | W.ED.DIZZY ---
HPI - Dizziness General: Chief Complaint: Dizziness Stated Complaint: High Blood Pressure Time Seen by Provider: 01/25/24 01:55 History of Present Illness: HPI Narrative: 38-year-old male well-known to the emergency department service. He has a history of chronic pancreatitis potentially related to alcohol in the past. He was last seen on 01/18. He presents with lethargy, vomiting, and low blood pressures. His states that his pressures have been in the 80s systolic at home. This is for the past 3 days or so. He did not feel well a couple of days ago, but felt improved to some degree yesterday. He tried to go on a float trip, but 20 minutes into the foot trip realized that he was feeling unwell again. Associated symptoms: Reports chills, nausea and vomiting; Denies chest pain Review of Systems Const: Reports: chills and body aches; Denies: fever(s) ENMT: Denies: throat pain Card: Denies: chest pain Resp: Denies: dyspnea or productive cough GI: Reports: abdominal pain, nausea and vomiting; Denies: diarrhea : Reports: flank pain (intermittent bilateral ) PFS ED PFSH: Medical History Generalized anxiety disorder Cannabis use disorder Pseudocyst, pancreas Abdominal pain Acute pancreatitis Drug allergy Acute chest wall pain Acute pancreatitis History of ADHD Psychiatric care Tobacco use Hypomagnesemia Hepatomegaly Transaminitis Alcohol intoxication Alcoholism Esophagitis Alcohol intoxication Acute pancreatitis Pseudocyst of pancreas Polysubstance abuse History of suicide attempt C7 cervical fracture C2 cervical fracture L4 vertebral fracture Alcohol abuse PTSD (post-traumatic stress disorder) Elevated transaminase level Pancreatitis, alcoholic, acute Surgical History History of appendectomy History of splenectomy Family History Other Diabetes Social History Smoking and tobacco/nicotine status: current every day tobacco/nicotine user Alcohol intake: current Alcohol intake frequency: 3 or more drinks per day Alcohol type: hard liquor Substance/Drug Use: current Substance/Drug use frequency: daily Physical Exam Const: GENERAL APPEARANCE: cooperative, lethargic and ill appearing; not frail appearing ORIENTATION/CONSCIOUSNESS: Yes oriented to person, Yes oriented to place, Yes oriented to time and Yes lethargic HENMT: COMMON NORMALS: normocephalic, atraumatic and Normal external nose present HEAD & SCALP: normocephalic and atraumatic FACE & SINUS: normal facial exam and face symmetric NOSE: Normal external nose present Eye: COMMON NORMALS: Equal, round and reactive pupils present and EOMs intact bilaterally PUPIL: Yes Equal, round and reactive pupils present Neck/C-Spine: GENERAL: Yes trachea midline Chest: CHEST: Yes Symmetrical chest wall rise Resp: COMMON NORMALS: normal respiratory effort, No retractions, No use of accessory muscles and clear to auscultation bilaterally AUSCULTATION: clear to auscultation bilaterally Cardio: COMMON NORMALS: regular rate and regular rhythm RATE: regular rate RHYTHM: regular rhythm GI: COMMON NORMALS: Normal to inspection, nondistended, normoactive bowel sounds present Extremity: COMMON NORMALS: no pedal edema Neuro: GENE COMA SCALE: document GCS findings Gene coma scale eye opening: Spontaneous Gene coma scale verbal response: Orientated [place] coma scale motor response: Obey commands [place] coma scale total score: 15 SENSORIUM/ORIENTATION: Yes oriented to person, Yes oriented to place, Yes oriented to time and Yes lethargic SPEECH: speech normal SENSORY EXAM: Yes extremities (intact) Psych: COMMON NORMALS: speech normal SPEECH: Yes normal speech Skin: COMMON NORMALS: no rashes or lesions noted GENERAL SKIN EXAM: no rashes or lesions noted Course Vital Signs: Vital signs: Vital Signs Temperature 97.6 F 01/25/24 05:03 Pulse Rate 85 01/25/24 05:03 Respiratory Rate 16 01/25/24 05:03 Blood Pressure 111/70 01/25/24 05:03 Pulse Oximetry 97 01/25/24 05:03 Oxygen Delivery Me thod Room Air 01/25/24 04:41 [facility] - Dizziness Medical Decision Making 38-year-old male with a history of pancreatitis, and hypertension. He has not had his hypertension medication, as his knew that his blood pressure was low. Despite not having his medication, his blood pressure remains mildly soft. He answers all questions appropriately, but is mildly lethargic. His white blood cell count is down to 13.8. His CRP is down as well. His lactic acid is 1. His electrolytes appear normal, but his creatinine is 5.7. It is repeated to ensure that this is not a lab error, and was 5.3. He has been hydrated with 2 L. Spoke with hospitalist regarding potential admission for significant BRIAN. Request CT scan or other imaging to ensure no hydronephrosis or urinary outlet obstruction. There is not appear to be. Orders will be written. Nephrology consult today will be likely. Lab Data 01/25/24 01:29 01/25/24 03:15 Laboratory Results WBC 13.75 10^3/uL (3.29-11.43) H 01/25/24 01:29 RBC 4.70 10^6/uL (3.85-5.65) 01/25/24 01:29 Hgb 15.30 g/dL (11.27-16.99) 01/25/24 01:29 Hct 45.4 % (37-53) 01/25/24 01:29 MCV 96.6 fl (82-101) 01/25/24 01: MCH 32.6 pg (27-33) 01/25/24 01: MCHC 33.7 g/dL (30-55) 01/25/24 01: RDW 14.3 % (12.1-15.1) 01/25/24 01:29 Plt Count 817 10^3/cmm (157-399) H 01/25/24 01:29 MPV 8.4 fL (7.4-10.4) 01/25/24 01: Neut % (Auto) 49.9 % 01/25/24 01: Lymph % (Auto) 36.1 % 01/25/24 01:29 Wythe % (Auto) 10.3 % 01/25/24 01:29 Eos % (Auto) 2.5 % 01/25/24 01:29 Baso % (Auto) 0.7 % 01/25/24 01:29 Neut # (Auto) 6.85 10^3/uL (1.8-7.7) 01/25/24 01:29 Lymph # (Auto) 5.0 10^3/uL (0.8-4.8) H 01/25/24 01:29 Wythe # (Auto) 1.4 10^3/uL (0.2-0.9) H 01/25/24: Eos # (Auto) 0.4 10^3/uL (0.0-0.8) 01/25/24 01: Baso # (Auto) 0.1 10^3/uL (0.0-0.1) 01/25/24 01: Nucleated RBC % (auto) 0 % 01/25/24 01: Nucleated RBCs # 0.0 /100WBC 01/25/24 01: PT 14.10 SECONDS (12.1-14.9) 01/25/24 01: INR 1.06 (0.8-1.2) 01/25/24 01:29 Sodium 136 mmol/L (136-145) 01/25/24 01: Potassium 4.0 mmol/L (3.5-5.1) 01/25/24 01: Chloride 98 mmol/L (98-107) 01/25/24 01: Carbon Dioxide 20 mmol/L (22-29) L 01/25/24 01:29 Anion Gap 22.0 (5-19) H 01/25/24 01:29 BUN 33 mg/dL (6-20) H 01/25/24 01:29 Creatinine 5.3 mg/dL (0.7-1.2) H 01/25/24 03:15 GFR Calculation 12.3 mL/min (90-130) L 01/25/24 03:15 Glucose 113 mg/dL (65-115) 01/25/24 01:29 Calculated Osmolality 290 mOsm/kg (285-295) 01/25/24 01:29 Lactic Acid 1.0 mmol/L (0.5-2.2) 01/25/24 01:29 Calcium 9.4 mg/dL (8.5-10.5) 01/25/24 01:29 Total Bilirubin 0.2 mg/dL (0.15-1.2) 01/25/24 01:29 AST 25 U/L (0-40) 01/25/24 01: ALT 25 U/L (0-41) 01/25/24 01:29 Alkaline Phosphatase 150 U/L (40-130) H 01/25/24 01: Ammonia 57 umol/L (16-60) 01/25/24 01:29 Creatine Kinase 89 U/L (39-308) 01/25/24 01:29 C-Reactive Protein 30.8 mg/L (0.0-4.9) H 01/25/24 01:29 Total Protein 7.5 g/dL (6.6-8.7) 01/25/24 01:29 Albumin 3.8 g/dL (3.5-5.2) 01/25/24 01:29 Globulin 3.7 g/dL (1.3-4.6) 01/25/24 01:29 Lipase 69 U/L (13-60) H 01/25/24 01:29 Ethyl Alcohol < 10 mg/dL (0-10) 01/25/24 01:29 XR interpretation done by ED provider, pending radiology final review Discharge Plan Discharge Patient Disposition: Placed in Observation Admit Provider: Carrillo Camacho Clinical Impression: Acute renal failure Chronic pancreatitis Qualifiers: Pancreatitis type: unspecified pancreatitis type Qualified Code(s): K86.1 - Other chronic pancreatitis Coding Level of Care Code ED [employer] Installer for Marko Avery
--- NOTE | 2024-01-25 06:06 | PM.HP ---
Providers/Chief Complaint Admitting Physician: Carrillo Camacho MD Primary Care Provider: Mahamed Sales MD Chief Complaint: High Blood Pressure History of Present Illness Elena Hernandez is a 38 year old male with a past medical history significant for generalized anxiety disorder, acute pancreatitis complicated by pseudocyst formation, ADHD, tobacco abuse, alcohol use disorder, cervical neck fractures, and PTSD who presents to the emergency department with generalized malaise and fatigue for the past week. Endorses associated lightheadedness, dizziness, nausea and emesis. Reports home blood pressures been soft for least the past 3 days. Reports he has been eating and drinking some. Denies peripheral edema. Endorses associated bilateral flank discomfort. He reports exertion worsens symptoms. Rest seems to improve. Yesterday he was feeling somewhat better and then try to flow drip which only lasted about 20 minutes until he became quite ill again for which they canceled the trip. Symptoms continued to worsen prompting him to go to the emergency department today. He does deny any fevers or chills. In the emergency department, he was found to be in acute renal failure. He does note decreased urinary output. He is on lisinopril 20 mg daily. He also reports he uses naproxen for pain. He denies abuse of NSAIDs. He denies family or personal history of renal failure. Review of Systems Narrative: A complete review of systems was obtained and is negative except as stated in HPI. Medications/Allergies Home Medications Medication Instructions Recorded Confirmed Last Taken Type amlodipine 5 mg tablet 5 mg PO DAILY #90 tabs 03/03/23 01/25/24 12/22/23 Rx folic acid 1 mg tablet 1 mg PO DAILY #90 tabs 03/03/23 01/25/24 12/22/23 Rx multivitamin with folic acid 400 1 tab PO DAILY #90 tabs 03/03/23 01/25/24 12/22/23 Rx mcg tablet (Thera) thiamine mononitrate (vit B1) 100 100 mg PO DAILY #90 tabs 03/03/23 01/25/24 12/22/23 Rx mg tablet (Vitamin B-1 (mononitrate)) pantoprazole 40 mg tablet,delayed 80 mg PO DAILY 05/25/23 01/25/24 12/22/23 History release (Protonix) aspirin 81 mg chewable tablet 81 mg PO DAILY 06/22/23 01/25/24 12/22/23 History (Children's Aspirin) potassium citrate 99 mg capsule 99 mg PO DAILY 10/06/23 01/25/24 12/22/23 History levocetirizine 5 mg tablet 5 mg PO DAILY 10/31/23 01/25/24 12/22/23 History lisinopril 20 mg tablet 20 mg PO DAILY 12/23/23 01/25/24 12/22/23 History magnesium 250 mg tablet 250 mg PO .QOD 12/23/23 01/25/24 12/22/23 History atomoxetine 60 mg capsule 60 mg PO DAILY #30 caps 01/18/24 01/25/24 Unknown Rx buspirone 10 mg tablet 10 mg PO BID #60 tabs 01/18/24 01/25/24 Unknown Rx pfojtg-ujdyektj-pvqrcuc 1 cap PO TID 01/18/24 01/25/24 Unknown History 12,000-38,000-60,000 unit capsule,delayed rel (Creon) mirtazapine 30 mg tablet (Remeron) 30 mg PO .HS #30 tabs 01/18/24 01/25/24 Unknown Rx sertraline 100 mg tablet (Zoloft) 150 mg (1.5 x 100 mg) PO DAILY #45 01/18/24 01/25/24 Unknown Rx tabs Allergies Allergy/AdvReac Type Severity Reaction Status Date / Time piperacillin [From Zosyn] Allergy ADR-Swelling Verified 01/25/24 00:53 of the Eye tazobactam [From Zosyn] Allergy ADR-Swelling Verified 01/25/24 00:53 of the Eye PFSH Acute PFSH: Medical History Generalized anxiety disorder Cannabis use disorder Pseudocyst, pancreas Abdominal pain Acute pancreatitis Drug allergy Acute chest wall pain Acute pancreatitis History of ADHD Psychiatric care Tobacco use Hypomagnesemia Hepatomegaly Transaminitis Alcohol intoxication Alcoholism Esophagitis Alcohol intoxication Acute pancreatitis Pseudocyst of pancreas Polysubstance abuse History of suicide attempt C7 cervical fracture C2 cervical fracture L4 vertebral fracture Alcohol abuse PTSD (post-traumatic stress disorder) Elevated transaminase level Pancreatitis, alcoholic, acute Surgical History History of appendectomy History of splenectomy Family History Other Diabetes Social History Smoking and tobacco/nicotine status: current every day tobacco/nicotine user Alcohol intake: current Alcohol intake frequency: 3 or more drinks per day Alcohol type: hard liquor Substance/Drug Use: current Substance/Drug use frequency: daily Vitals/I&O/Wt Last Vital Signs Temp 97.6 F 01/25/24 05:03 Pulse 85 01/25/24 05:03 Resp 16 01/25/24 05:03 BP 111/70 01/25/24 05:03 Pulse Ox 97 01/25/24 05:03 O2 Del Method Room Air 01/25/24 04:41 01/24/24 01/24/24 01/25/24 14:59 22:59 06:59 Intake Total 1999 Balance 1999 Weight last 48 hrs Weight 81.788 kg Weight 81.788 kg Weight 86.183 kg Physical Exam Narrative: General: Patient is awake. Head: Normocephalic. Atraumatic. EOM intact. Dry mucous membranes. Neck: No JVD. Cardiovascular: RRR. No gallops. No murmurs. No peripheral edema. Lungs: Clear to auscultation, no use of accessory muscles, no crackles or wheezes. Skin: No jaundice. No rashes. Abdomen: Normal bowel sounds, abdomen soft and nontender. Extremities: No cyanosis or clubbing. Musculoskeletal: No swollen or erythematous joints. Neurological: Moves all 4 extremities. No myoclonus. Data 01/25/24 01:29 01/25/24 03:15 A&P Assessment and plan (1) Acute renal failure: Admission Cr 5.3, previously 0.6 on 01/19/24 CT negative for evidence of hydronephrosis CPK within normal limits No NSAIDs or other nephrotoxins Hold lisinopril Urinalysis and urine electrolytes ordered Start NS at 150mL/hr Serial labs Strict I&Os, may need Christine catheter pending clinical course Daily weights Consider nephrology consultation (2) Alcohol abuse: ETOH level is negative on admission Continue folic acid and thiamine supplement [facility] protocol (3) Chronic pancreatitis: Pseudocyst stable on imaging Admission lipase at 69 Continue home Creon Qualifiers: Pancreatitis type: unspecified pancreatitis type Qualified Code(s): K86.1 - Other chronic pancreatitis (4) Generalized anxiety disorder: Continue home Buspar, Zoloft and Remeron (5) Thrombocytosis: Suspect reactive Continue to monior Continue aspirin therapy Plan DVT ppx: Heparin Code: Full Code Attestations Medical Necessity Statement*: Patient presents with acute renal failure with expected hospitalization not to cross two midnights for further work up, IV hydration, serial labs and supportive care. Coding Level of Care Code Acute Code for [facility] Fwd Diagnoses Acute renal failure N17.9 Alcohol abuse F10.10 Chronic pancreatitis K86.1 Pancreatitis type: unspecified pancreatitis type Generalized anxiety disorder F41.1 Thrombocytosis D75.839
[2024-01-25] MEDS: sodium chloride 0.9% 1,000 ML 150 ML IV ×3 (06:12→21:23)
[2024-01-25] MEDS: heparin 5,000 unit/mL INJ 1 mL 5000 UNIT SUBCUT ×3 (06:14→23:08)
[2024-01-25 06:35] LABS: Procalcitonin 0.41 ng/mL (0-0.5)
[2024-01-25 06:56] LABS: Amphetamines Screen Urine Negative (Negative); Barbiturates Screen Urine Negative (Negative); Benzodiazepines Screen Urine Negative (Negative); Cocaine Screen Urine Negative (Negative); Opiate Screen Urine Positive (Negative); PCP Screen Urine Negative (Negative); THC Screen Urine Positive (Negative)
[2024-01-25 07:13] LABS: Potassium, Radom Urine 27 mmol/L; Urine Random Chloride 18 mmol/L; Urine Random Sodium 65 mmol/L
[2024-01-25 07:28] LABS: Urine Appearance Slightly Cloudy (CLEAR); Urine Color Yellow (Yellow)
[2024-01-25 07:29] LABS: Add Urine Microscopic? YES; Bacteria Urine 3+ /hpf; Bilirubin Urine 1+ (Negative); Blood Urine Trace (Negative); Glucose Urine UA Norm (Normal); Ketones Urine 1+ (Negative); Leukocyte Esterase Urine 1+ (Negative); Mucus Urine 1+ /hpf; Nitrate Urine Positive (Negative); Protein Urine 1+ (Negative); RBC Urine 0-4 /hpf (0-2); Specific Gravity, Urine 1.025 (1.005-1.030); Urobilinogen Urine 1 mg/dL (Negative); pH Urine 5 (5-7)
[2024-01-25 07:30] LABS: Add Urine Culture? Yes; Amorphous Sediment Urine 1+ /hpf; Hyaline Casts Urine 80-100 /lpf
[2024-01-25] MEDS: oxyCODONE-APAP 5-325 mg Tablet 1 TAB PO ×3 (09:16→20:15)
[2024-01-25] MEDS: lipase-protease-amylase Capsule 1 EACH PO ×4 (09:16→23:19)
[2024-01-25] MEDS: folic acid 1 mg Tablet PO (09:17)
[2024-01-25] MEDS: pantoprazole DR 40 mg Tablet 80 MG PO (09:17)
[2024-01-25] MEDS: BuSPIRONE 10 mg Tablet PO ×2 (09:17→17:22)
[2024-01-25] MEDS: aspirin 81 mg Chew Tablet PO (09:17)
[2024-01-25] MEDS: thiamine 100 mg Tablet PO (09:17)
[2024-01-25] MEDS: sertraline 100 mg Tablet 150 MG PO (09:17)
[2024-01-25] MEDS: HYDROmorphone 1 mg/mL INJ 1 mL 0.200000000000000011 MG IVP ×2 (12:08→18:19)
[2024-01-25] MEDS: cefTRIAXone 1,000 MG in sodium chloride 0.9% (plus) 50 ML 100 MG IV (12:09)
[2024-01-25 12:18] LABS: Estmated Average Glucose 108; HIV 1 & 2 Antigen Non-Reactive (Non-Reactiv); Hemoglobin A1C 5.4 % (4.0-6.0)
[2024-01-25 12:19] LABS: HIV 1 & 2 Antibody Non-Reactive (Non-Reactiv)
[2024-01-25 12:30] LABS: Hepatitis A Antibody IgM Non-Reactive (Nonreactive); Hepatitis B Core AB, Total Non-Reactive (Nonreactive); Hepatitis B Surface Antigen Non-Reactive (Nonreactive); Hepatitis C Virus Antibody Non-Reactive (Nonreactive)
[2024-01-25 12:33] LABS: Iron 62 ug/dL (59-158); Percent Saturation 36.2 % (20-50); Thyroid Stimulating Hormone 2.23 uIU/mL (0.27-4.20); Total Iron Binding Capacity 171 mcg/dl; Unsaturated Iron Binding 109 ug/dL (112-347); Vitamin B12 689 pg/mL (232-1245)
[2024-01-25 13:26] LABS: Hepatitis B Surface AB > 1000.0 (11.5-1000)
[2024-01-25 15:27] LABS: Blood Urea Nitrogen 29 mg/dL (6-20); Calcium 8.5 mg/dL (8.5-10.5); Carbon Dioxide 20 mmol/L (22-29); Chloride 105 mmol/L (98-107); Glomerular Filtration Rate 27.9 mL/min (90-130); Glucose 95 mg/dL (65-115); Osmolality Calculated 288 mOsm/kg (285-295); Sodium 136 mmol/L (136-145)
[2024-01-25 15:31] LABS: Anion Gap 16.4 (5-19); Potassium 5.4 mmol/L (3.5-5.1)
[2024-01-25 18:08] LABS: Urine Creatinine 315 mg/dL (39-259)
[2024-01-25] MEDS: mirtazapine 30 mg Tablet PO (20:16)
[2024-01-25] MEDS: HYDROmorphone 1 mg/mL INJ 1 mL 0.5 MG IVP (23:48)
[2024-01-26] VITALS (13 sets, daily range): BP systolic 118–163; BP diastolic 62–107; PULSE 73–99; RESP 16–19; TEMP 36.3–37.1; O2SAT 97–99
[2024-01-26] MEDS: oxyCODONE-APAP 5-325 mg Tablet 1 TAB PO ×4 (02:14→19:35)
[2024-01-26] MEDS: sodium chloride 0.9% 1,000 ML 150 ML IV ×2 (03:23→10:37)
[2024-01-26 05:53] LABS: Basophils # 0.1 10^3/uL (0.0-0.1); Basophils % 0.6 %; Eosinophils # 0.2 10^3/uL (0.0-0.8); Eosinophils % 1.6 %; Hematocrit 42.8 % (37-53); Lymphocytes # 4.5 10^3/uL (0.8-4.8); Lymphocytes % 37.1 %; Mean Corpuscular HGB Conc 32.5 g/dL (30-55); Mean Corpuscular Hemoglobin 32.9 pg (27-33); Mean Corpuscular Volume 101.2 fl (82-101); Mean Platelet Volume 8.5 fL (7.4-10.4); Monocytes # 1.2 10^3/uL (0.2-0.9); Monocytes % 9.6 %; Neutrophils % 50.6 %; Nucleated Red Blood Cells % 0 %; Platelet Count 684 10^3/cmm (157-399); Red Blood Count 4.23 10^6/uL (3.85-5.65); Red Cell Distribution Width 14.5 % (12.1-15.1); White Blood Count 12.25 10^3/uL (3.29-11.43)
[2024-01-26 06:14] LABS: Chol HDL Ratio 4.48 mg/dL (1.0-5.00); Cholesterol 121 mg/dL (0-200); HDL Cholesterol 27 mg/dL (60-100); LDL Cholesterol Calculated 52 mg/dL (50-129); Triglycerides 209 mg/dL (0-150); VLDL Cholestrol Calculation 42 mg/dL (0-30)
[2024-01-26 06:15] LABS: Alanine Aminotransferase 15 U/L (0-41); Alkaline Phosphatase 124 U/L (40-130); Blood Urea Nitrogen 18 mg/dL (6-20); Calcium 8.5 mg/dL (8.5-10.5); Carbon Dioxide 24 mmol/L (22-29); Chloride 108 mmol/L (98-107); Creatinine Clr Calc Pharmacy 92.8612; Globulin 3.2 g/dL (1.3-4.6); Glomerular Filtration Rate 68.1 mL/min (90-130); Glucose 108 mg/dL (65-115); Magnesium 2.2 mg/dL (1.7-2.3); Osmolality Calculated 296 mOsm/kg (285-295); Phosphorus 2.5 mg/dL (2.5-4.5); Sodium 142 mmol/L (136-145); Total Bilirubin 0.3 mg/dL (0.15-1.2); Total Protein 6.2 g/dL (6.6-8.7)
[2024-01-26 06:30] LABS: Anion Gap 14.7 (5-19); Aspartate Amino Transferase 17 U/L (0-40); Potassium 4.7 mmol/L (3.5-5.1)
[2024-01-26 07:18] LABS: Folate Level > 20.0 ng/mL (4.5-32.2)
[2024-01-26 07:36] LABS: Slide Review Slide Review Perform
[2024-01-26] MEDS: pantoprazole DR 40 mg Tablet 80 MG PO (08:33)
[2024-01-26] MEDS: HYDROmorphone 1 mg/mL INJ 1 mL 0.5 MG IVP ×2 (08:33→14:16)
[2024-01-26] MEDS: lipase-protease-amylase Capsule 1 EACH PO ×2 (08:33→11:29)
[2024-01-26] MEDS: folic acid 1 mg Tablet PO (08:34)
[2024-01-26] MEDS: BuSPIRONE 10 mg Tablet PO ×2 (08:34→17:26)
[2024-01-26] MEDS: sertraline 100 mg Tablet 150 MG PO (08:34)
[2024-01-26] MEDS: aspirin 81 mg Chew Tablet PO (08:34)
[2024-01-26] MEDS: thiamine 100 mg Tablet PO (08:34)
--- NOTE | 2024-01-26 09:29 | PC.CHAP ---
Pastoral Care Encounter/Spiritual Assessment Type of Contact [] Declined commercial real estate broker visit [] Patient/Family/Request visit [] Outpatient visit [] Follow-up visit [] Physician referral [] Code/Alert [] Routine visit [] Staff referral [] Actively dying [] Patient sleeping [] Family support [] [] Out of room [] Palliative care [] [x] Receiving care in room [] Pre-surgical visit [] Trauma [] Long length of stay [] ICU visit [] Other: Relational/Emotional Strength [] Patient feels connected with others/family/visitors/staff [] Distress [] Loneliness/isolation [] Abandonment Spirituality of Patient [] Person of Mary Lou [] Attends Latter-Day of their Mary Lou [] Believes in Prayer [] Reads Bible or Samaritan materials [] There are Spiritual issues to be addressed Accounting Clerk Interventions [] Prayer [] Active listening [] Non-anxious presence [] Spiritual/emotional support [] Crisis/trauma care [] Spiritual counseling [] Bereavement support [] Provided bereavement packet [] Provided Bible/devotional materials [] Provided toy/stuffed animal, coloring book to patient or family member [] Provided Communion [] Anointing/Fossil [] Salvation [] Completed spiritual assessment [] Other: Impact on Illness or Injury [] Angry [] Fearful [] Anxious [] Often cries [] Exhaustion [] Unable to work [] Unable to attend sabianism [] Unable to walk/stand [] Unable to read [] Unable to drive [] Unable to eat/drink [] Unable to sleep [] Unable to be with family [] Patient intubated [] Other: Summary Time spent with patient
[2024-01-26] MEDS: cefTRIAXone 1,000 MG in sodium chloride 0.9% (plus) 50 ML 100 MG IV (11:29)
[2024-01-26] MEDS: heparin 5,000 unit/mL INJ 1 mL 5000 UNIT SUBCUT ×2 (11:30→23:34)
[2024-01-26] MEDS: ondansetron 2 mg/ML SDV 2 mL 4 MG IVP (14:16)
--- NOTE | 2024-01-26 14:40 | P.PN_ITS ---
Subjective 2 Subjective: No acute events overnight. Patient lying comfortably in bed. States he continues to feel weak and tired. Denies any nausea, vomiting, headache. Appetite is appropriate. Document urine output of around 2 L in last 24 hours. Vitals/I&O/Wt Last Vital Signs Temp 97.5 F L 01/26/24 11:26 Pulse 73 01/26/24 11:26 Resp 18 01/26/24 11:26 BP 145/87 01/26/24 11:26 Pulse Ox 98 01/26/24 11:26 O2 Del Method Room Air 01/26/24 11:26 01/25/24 01/26/24 01/26/24 22:59 06:59 14:59 Intake Total 1650 / 3130 1020 / 4150 1855 / 1855 Output Total 1350 / 1350 900 / 2250 Balance 300 / 1780 120 / 1900 1855 / 1855 Weight last 48 hrs Weight 81.788 kg Weight 81.788 kg Weight 81.788 kg Weight 81.788 kg Weight 86.183 kg Physical Exam 2 Narrative: General: Patient is awake., Tired appearing Head: Normocephalic. Atraumatic. EOM intact. Less dry mucous membranes. Neck: No JVD. Cardiovascular: RRR. No gallops. No murmurs. No peripheral edema. Lungs: Clear to auscultation, no use of accessory muscles, no crackles or wheezes. Skin: No jaundice. No rashes. Abdomen: Normal bowel sounds, abdomen soft and nontender. Extremities: No cyanosis or clubbing. Musculoskeletal: No swollen or erythematous joints. Neurological: Moves all 4 extremities. No myoclonus. Urinary Catheter Management: Christine: Cath Placed During This Visit: yes Reason for Continuing Indwelling Catheter: Other Urinary Catheter Date of Insertion: 01/25/24 Urinary Catheter Time of Insertion: 12:00 Data 01/26/24 05:33 01/26/24 05:33 Micro: Microbiology 01/26/24 12:00 Blood Culture - Preliminary Blood SPECIMEN COLLECTED 01/26/24 12:00 Blood Culture - Preliminary Blood SPECIMEN COLLECTED 01/25/24 06:16 Urine Culture - Preliminary Urine,Clean Catch A&P Assessment and plan (1) Acute renal failure: Resolved. Creatinine trending down to 1.2. Most likely in setting of dehydration along with home dose of lisinopril. Continue to monitor urine output. Continue Christine catheterization. Medical reconstruction done for nephrotoxic drugs. Appreciate urine lites and urine creatinine. Hold off on any further fluids for now. Monitor BMP in the evening. (2) Alcohol abuse: ETOH level is negative on admission Continue folic acid and thiamine supplement [facility] protocol (3) Chronic pancreatitis: Pseudocyst stable on imaging Admission lipase at 69 Continue home Creon. Change oxycodone to every 8 hours as needed, Dilaudid 0.2 to every 6 as needed. Qualifiers: Pancreatitis type: unspecified pancreatitis type Qualified Code(s): K 86.1 - Other chronic pancreatitis (4) Generalized anxiety disorder: Continue home Buspar, Zoloft and Remeron (5) Thrombocytosis: Suspect reactive Continue to monior Continue aspirin therapy Plan UTI: Urine on admission positive for nitrate and leuk esterase. Follow-up with urine culture and blood culture. Continue with IV ceftriaxone for now. Hypertension: Goal blood pressure less than 140/90 mmHg. Patient at home was on amlodipine 5 mg oral daily, lisinopril 20 mg oral daily. Blood pressures fair for now. Hold off on antihypertensive. Patient feeling dizzy on standing up at home. Check orthostatics. Soft mechanical renal nondialysis diet DVT ppx: Heparin Code: Full Code Attestations 2 Medical Necessity Statement*: Requires further hospitalization for management of pancreatitis, resolving BRIAN in setting of dehydration from poor oral intake, UTI Diagnoses Acute renal failure N17.9 Alcohol abuse F10.10 Chronic pancreatitis K86.1 Pancreatitis type: unspecified pancreatitis type Generalized anxiety disorder F41.1 Thrombocytosis D75.839
--- NOTE | 2024-01-26 15:36 | XR_ITS ---
WS: [id number] Exam: XR chest 1V portable [id number] Date/Time of Exam: 01/26/2024 3:40 PM Reason For Exam: chest pain Comparison 01/19/2024. Small infiltrate and plaque atelectasis in the RIGHT base. Remaining lung jaquez have generally clear ed. Normal cardiomediastinal silhouette. No pleural effusion or pneumothorax. Hardware in the RIGHT c lavicle. XR/XR chest 1V portable [id number] IMPRESSION: 1. Mild residual infiltrate and plaque atelectasis in the RIGHT lung base. LEFT pulmonary infiltrates have cleared since previous study.
--- NOTE | 2024-01-26 15:44 | ECG_ITS ---
[facility] Test Date: 2024-01-26 Pat Name: Elena Hernandez Department: Room: 259 Gender: Male Uniform Maker: : 1985 Requested By: Anand Fierro Order Number: [id number] Boni MD: Adrian Pearson M.D. Measurements Intervals [place] Rate: 74 P: 54 OK: 150 QRS: 49 QRSD: 89 T: 42 QT: 402 QTc: 447 Interpretive Statements SINUS RHYTHM Compared to ECG 01/19/2024 18:18:32 No significant changes Electronically Signed On 01-28-2024 0:12:49 CDT by Adrian Pearson M.D. [email or web address] grove city methodist hospitalGreenline [email or web address]/store/[id number]
[2024-01-26 16:11] LABS: Anion Gap 13.8 (5-19); Blood Urea Nitrogen 14 mg/dL (6-20); Calcium 8.3 mg/dL (8.5-10.5); Carbon Dioxide 22 mmol/L (22-29); Chloride 106 mmol/L (98-107); Creatinine Clr Calc Pharmacy 123.8149; Glucose 117 mg/dL (65-115); Osmolality Calculated 286 mOsm/kg (285-295); Potassium 4.8 mmol/L (3.5-5.1); Sodium 137 mmol/L (136-145)
[2024-01-26] MEDS: HYDROmorphone 1 mg/mL INJ 1 mL 0.200000000000000011 MG IVP ×2 (17:27→21:15)
[2024-01-26] MEDS: mirtazapine 30 mg Tablet PO (20:07)
[2024-01-27] VITALS (8 sets, daily range): BP systolic 129–158; BP diastolic 72–98; PULSE 62–70; RESP 16–18; TEMP 36.7–36.9; O2SAT 96–99
[2024-01-27] MEDS: oxyCODONE-APAP 5-325 mg Tablet 1 TAB PO ×2 (03:33→12:00)
--- NOTE | 2024-01-27 04:34 | ECG_ITS ---
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 Measurements Intervals [place] Rate: 52 P: 39 AL: 137 QRS: 47 QRSD: 86 T: 47 QT: 457 QTc: 429 Interpretive Statements SINUS BRADYCARDIA Compared to ECG 01/26/2024 16:01:32 Sinus rhythm no longer present Electronically Signed On 01-28-2024 0:07:36 CDT by Adrian Pearson M.D. [email or web address] Systemselyria memorial hospitalCARDFREE/store/[id number]
[2024-01-27 05:53] LABS: Basophils # 0.1 10^3/uL (0.0-0.1); Basophils % 0.7 %; Eosinophils # 0.3 10^3/uL (0.0-0.8); Eosinophils % 2.6 %; Hematocrit 40.3 % (37-53); Lymphocytes # 5.1 10^3/uL (0.8-4.8); Lymphocytes % 49.4 %; Mean Corpuscular HGB Conc 33.7 g/dL (30-55); Mean Corpuscular Volume 97.8 fl (82-101); Mean Platelet Volume 8.6 fL (7.4-10.4); Monocytes # 1.1 10^3/uL (0.2-0.9); Monocytes % 10.3 %; Neutrophils # 3.77 10^3/uL (1.8-7.7); Neutrophils % 36.8 %; Nucleated Red Blood Cells % 0 %; Platelet Count 655 10^3/cmm (157-399); Red Blood Count 4.12 10^6/uL (3.85-5.65); Red Cell Distribution Width 14.3 % (12.1-15.1); White Blood Count 10.26 10^3/uL (3.29-11.43)
[2024-01-27 06:18] LABS: Magnesium 1.9 mg/dL (1.7-2.3)
[2024-01-27 06:19] LABS: Alanine Aminotransferase 14 U/L (0-41); Alkaline Phosphatase 123 U/L (40-130); Anion Gap 13.6 (5-19); Aspartate Amino Transferase 14 U/L (0-40); Blood Urea Nitrogen 11 mg/dL (6-20); Calcium 8.5 mg/dL (8.5-10.5); Carbon Dioxide 25 mmol/L (22-29); Chloride 109 mmol/L (98-107); Creatinine Clr Calc Pharmacy 126.3384; Globulin 3.1 g/dL (1.3-4.6); Glucose 113 mg/dL (65-115); Osmolality Calculated 296 mOsm/kg (285-295); Potassium 4.6 mmol/L (3.5-5.1); Sodium 143 mmol/L (136-145); Total Bilirubin 0.2 mg/dL (0.15-1.2); Total Protein 6.1 g/dL (6.6-8.7)
[2024-01-27 06:48] LABS: Slide Review Slide Review Perform
[2024-01-27] MEDS: lipase-protease-amylase Capsule 1 EACH PO ×2 (08:57→12:00)
[2024-01-27] MEDS: sertraline 100 mg Tablet 150 MG PO (08:57)
[2024-01-27] MEDS: BuSPIRONE 10 mg Tablet PO (08:58)
[2024-01-27] MEDS: aspirin 81 mg Chew Tablet PO (08:58)
[2024-01-27] MEDS: folic acid 1 mg Tablet PO (08:58)
[2024-01-27] MEDS: pantoprazole DR 40 mg Tablet 80 MG PO (08:58)
[2024-01-27] MEDS: thiamine 100 mg Tablet PO (08:58)
[2024-01-27] MEDS: HYDROmorphone 1 mg/mL INJ 1 mL 0.200000000000000011 MG IVP (09:03)
[2024-01-27] MEDS: heparin 5,000 unit/mL INJ 1 mL 5000 UNIT SUBCUT (10:44)
[2024-01-27] MEDS: cefTRIAXone 1,000 MG in sodium chloride 0.9% (plus) 50 ML 100 MG IV (10:44)
--- NOTE | 2024-01-27 11:45 | P.DS_ITS ---
Discharge Providers Date of Admission: 01/25/24 04:25 Date of Discharge: January 27, 2024 Attending Provider at Admission: Carrillo Camacho MD Attending Provider at Discharge: Anand Fierro MD Primary Care Provider: Mahamed Sales MD Diagnoses at Discharge Discharge Diagnosis (1) Acute renal failure: Status: Acute (2) Alcohol abuse: Status: Acute (3) Chronic pancreatitis: Status: Acute Qualifiers: Pancreatitis type: unspecified pancreatitis type Qualified Code(s): K86.1 - Other chronic pancreatitis (4) Generalized anxiety disorder: Status: Acute (5) Thrombocytosis: Status: Acute Reason for Visit Reason for Visit: High Blood Pressure Brief History: History as per HPI: Elena Hernandez is a 38 year old male with a past medical history significant for generalized anxiety disorder, acute pancreatitis complicated by pseudocyst formation, ADHD, tobacco abuse, alcohol use disorder, cervical neck fractures, and PTSD who presents to the emergency department with generalized malaise and fatigue for the past week. Endorses associated lightheadedness, dizziness, nausea and emesis. Reports home blood pressures been soft for least the past 3 days. Reports he has been eating and drinking some. Denies peripheral edema. Endorses associated bilateral flank discomfort. He reports exertion worsens symptoms. Rest seems to improve. Yesterday he was feeling somewhat better and then try to flow drip which only lasted about 20 minutes until he became quite ill again for which they canceled the trip. Symptoms continued to worsen prompting him to go to the emergency department today. He does deny any fevers or chills. In the emergency department, he was found to be in acute renal failure. He does note decreased urinary output. He is on lisinopril 20 mg daily. He also reports he uses naproxen for pain. He denies abuse of NSAIDs. He denies family or personal history of renal failure. Hospital Course Hospital Course Patient was admitted to the hospital further evaluation and management of acute renal failure with creatinine of 5.3 in setting of alcohol abuse, chronic pancreatitis. There was concern for UTI on admission so he was started on broad-spectrum antibiotics along with fluid resuscitation. He responded well to the treatment and creatinine has been back to baseline for more than 24 hours. He was continued on his home dose of Creon. He continued to complain of abdominal pain while getting his home dose of pain medications. He has been discharged in hemodynamically stable condition advised to follow-up with his outpatient husbandry person and possibly at pain clinic. He is advised to maintain his oral intake with up to 2 to 3 L of liquid daily. Physical Exam Narrative: General: Patient is awake. Sleeping while entering the room, wakes up compl aining of abdominal pain Head: Normocephalic. Atraumatic. EOM intact. Less dry mucous membranes. Neck: No JVD. Cardiovascular: RRR. No gallops. No murmurs. No peripheral edema. Lungs: Clear to auscultation, no use of accessory muscles, no crackles or wheezes. Skin: No jaundice. No rashes. Abdomen: Normal bowel sounds, abdomen soft and nontender. Extremities: No cyanosis or clubbing. Musculoskeletal: No swollen or erythematous joints. Neurological: Moves all 4 extremities. No myoclonus. Urinary Catheter Management: Christine: Cath Placed During This Visit: yes, but has since been removed by the nurse Reason for Continuing Indwelling Catheter: Does Not Meet Criteria Urinary Catheter Date of Insertion: 01/25/24 Urinary Catheter Time of Insertion: 12:00 Date Urinary Catheter Removed: 01/26/24 Time Urinary Catheter Discontinued: 18:45 Discharge Data Studies Completed and Pending Completed Studies During Hospitalization Category Date Time Status CT kidney stone [id number] Stat Cat Scan 01/25/24 03:41 Completed XR chest 1V portable [id number] Routine Exams 01/26/24 15:36 Completed Pending at discharge Category Date Time Status Blood Culture Stat Lab 01/26/24 12:00 Results MAG [Magnesium] AM LABS Lab 01/28/24 04:00 Ordered MAG [Magnesium] AM LABS Lab 01/28/24 04:00 Ordered MAG [Magnesium] AM LABS Lab 01/29/24 04:00 Ordered Radiology Impressions Abdomen/Pelvis CT 01/25/24 03:41 IMPRESSION: 1. Stable hepatomegaly. 2. Stable pancreatic pseudocysts in the neck of the pancreas and uncinate process. 3. Peripancreatic inflammatory changes and fluid extending into Weathers's pouch, the right pararenal and perirenal spaces as well as into the right paracolic gutter. 4. No hydronephrosis. No renal or obstructive ureteral calculi. 5. Mild inflammatory changes of the cecum, ascending colon and hepatic flexure, likely secondary to the presence of pancreatic fluid in the right paracolic gutter. Chest X-Ray 01/26/24 15:36 IMPRESSION: 1. Mild residual infiltrate and plaque atelectasis in the RIGHT lung base. LEFT pulmonary infiltrates have cleared since previous study. Laboratory Results WBC 10.26 10^3/uL (3.29-11.43) 01/27/24 05:39 RBC 4.12 10^6/uL (3.85-5.65) 01/27/24 05:39 Hgb 13.60 g/dL (11.27-16.99) 01/27/24 05:39 Hct 40.3 % (37-53) 01/27/24 05:39 MCV 97.8 fl (82-101) 01/27/24 05:39 MCH 33.0 pg (27-33) 01/27/24 05:39 MCHC 33.7 g/dL (30-55) 01/27/24 05:39 RDW 14.3 % (12.1-15.1) 01/27/24 05:39 Plt Count 655 10^3/cmm (157-399) H 01/27/24 05:39 MPV 8.6 fL (7.4-10.4) 01/27/24 05:39 Neut % (Auto) 36.8 % 01/27/24 05:39 Lymph % (Auto) 49.4 % 01/27/24 05:39 [place] % (Auto) 10.3 % 01/27/24 05:39 Eos % (Auto) 2.6 % 01/27/24 05:39 Baso % (Auto) 0.7 % 01/27/24 05:39 Neut # (Auto) 3.77 10^3/uL (1.8-7.7) 01/27/24 05:39 Lymph # (Auto) 5.1 10^3/uL (0.8-4.8) H 01/27/24 05:39 [place] # (Auto) 1.1 10^3/uL (0.2-0.9) H 01/27/24 05:39 Eos # (Auto) 0.3 10^3/uL (0.0-0.8) 01/27/24 05:39 Baso # (Auto) 0.1 10^3/uL (0.0-0.1) 01/27/24 05:39 Nucleated RBC % (auto) 0 % 01/27/24 05:39 Nucleated RBCs # 0.0 /100WBC 01/27/24 05:39 PT 14.10 SECONDS (12.1-14.9) 01/25/24 01:29 INR 1.06 (0.8-1.2) 01/25/24 01:29 Sodium 143 mmol/L (136-145) 01/27/24 05:39 Potassium 4.6 mmol/L (3.5-5.1) 01/27/24 05:39 Chloride 109 mmol/L (98-107) H 01/27/24 05:39 Carbon Dioxide 25 mmol/L (22-29) 01/27/24 05:39 Anion Gap 13.6 (5-19) 01/27/24 05:39 BUN 11 mg/dL (6-20) 01/27/24 05:39 Creatinine 0.9 mg/dL (0.7-1.2) 01/27/24 05:39 GFR Calculation 95.0 mL/min (90-130) 01/27/24 05:39 Glucose 113 mg/dL (65-115) 01/27/24 05:39 Estimat Average Glucose 108 01/25/24 01:29 Hemoglobin A1c 5.4 % (4.0-6.0) 01/25/24 01:29 Calculated Osmolality 296 mOsm/kg (285-295) H 01/27/24 05:39 Lactic Acid 1.0 mmol/L (0.5-2.2) 01/25/24 01:29 Calcium 8.5 mg/dL (8.5-10.5) 01/27/24 05:39 Phosphorus 2.5 mg/dL (2.5-4.5) 01/26/24 05:33 Magnesium 1.9 mg/dL (1.7-2.3) 01/27/24 05:39 Iron 62 ug/dL (59-158) 01/25/24 03:15 TIBC 171 mcg/dl 01/25/24 03:15 % Saturation 36.2 % (20-50) 01/25/24 03:15 Unsat Iron Binding 109 ug/dL (112-347) L 01/25/24 03:15 Total Bilirubin 0.2 mg/dL (0.15-1.2) 01/27/24 05:39 AST 14 U/L (0-40) 01/27/24 05:39 ALT 14 U/L (0-41) 01/27/24 05:39 Alkaline Phosphatase 123 U/L (40-130) 01/27/24 05:39 Ammonia 57 umol/L (16-60) 01/25/24 01:29 Creatine Kinase 89 U/L (39-308) 01/25/24 01:29 C-Reactive Protein 30.8 mg/L (0.0-4.9) H 01/25/24 01:29 Total Protein 6.1 g/dL (6.6-8.7) L 01/27/24 05:39 Albumin 3.0 g/dL (3.5-5.2) L 01/27/24 05:39 Globulin 3.1 g/dL (1.3-4.6) 01/27/24 05:39 Triglycerides 209 mg/dL (0-150) H 01/26/24 05:33 Cholesterol 121 mg/dL (0-200) 01/26/24 05:33 LDL Cholesterol, Calc 52 mg/dL (50-129) 01/26/24 05:33 Total VLDL Cholesterol 42 mg/dL (0-30) H 01/26/24 05:33 HDL Cholesterol 27 mg/dL (60-100) L 01/26/24 05:33 Cholesterol/HDL Ratio 4.48 mg/dL (1.0-5.00) 01/26/24 05:33 Lipase 69 U/L (13-60) H 01/25/24 01:29 Vitamin B12 689 pg/mL (232-1245) 01/25/24 03:15 Folate > 20.0 ng/mL (4.5-32.2) 01/26/24 05:33 Procalcitonin 0.41 ng/mL (0-0.5) 01/25/24 03:15 TSH 2.23 uIU/mL (0.27-4.20) 01/25/24 03:15 Urine Color Yellow (Yellow) 01/25/24 06:16 Urine Appearance Slightly cloudy (CLEAR) 01/25/24 06:16 Urine pH 5 (5-7) 01/25/24 06:16 Ur Specific [place] 1.025 (1.005-1.030) 01/25/24 06:16 Urine Protein 1+ (Negative) H 01/25/24 06:16 Urine Glucose (UA) Norm (Normal) 01/25/24 06:16 Urine Ketones 1+ (Negative) H 01/25/24 06:16 Urine Blood Trace (Negative) H 01/25/24 06:16 Urine Nitrate Positive (Negative) H 01/25/24 06:16 Urine Bilirubin 1+ (Negative) H 01/25/24 06:16 Urine Urobilinogen 1 mg/dL (Negative) H 01/25/24 06:16 Ur Leukocyte Esterase 1+ (Negative) H 01/25/24 06:16 Urine RBC 0-4 /hpf (0-2) H 01/25/24 06:16 Urine WBC 10-15 /hpf (0-5) H 01/25/24 06:16 Ur Squamous Epith Cells 5-10 /hpf (0-5) H 01/25/24 06:16 Amorphous Sediment 1+ /hpf 01/25/24 06:16 Urine Bacteria 3+ /hpf (NONE) H 01/25/24 06:16 Hyaline Casts 80-100 /lpf H 01/25/24 06:16 Coarse Granular Casts 5-10 /lpf H 01/25/24 06:16 Urine Mucus 1+ /hpf 01/25/24 06:16 Ur Random Sodium 65 mmol/L 01/25/24 06:16 Ur Random Potassium 27 mmol/L 01/25/24 06:16 Ur Random Chloride 18 mmol/L 01/25/24 06:16 Urine Creatinine 315 mg/dL (39-259) H 01/25/24 06:16 Urine Opiates Screen Positive ng/mL (Negative) H 01/25/24 06:16 Ur Barbiturates Screen Negative ng/mL (Negative) 01/25/24 06:16 Ur Phencyclidine Scrn Negative ng/mL (Negative) 01/25/24 06:16 Ur Amphetamines Screen Negative ng/mL (Negative) 01/25/24 06:16 U Benzodiazepines Scrn Negative ng/mL (Negative) 01/25/24 06:16 Urine Cocaine Screen Negative ng/mL (Negative) 01/25/24 06:16 U Marijuana (THC) Screen Positive ng/mL (Negative) H 01/25/24 06:16 Ethyl Alcohol < 10 mg/dL (0-10) 01/25/24 01:29 Hepatitis A IgM Ab Non-reactive (Nonreactive) 01/25/24 01:29 Hep Bs Antigen Non-reactive (Nonreactive) 01/25/24 01:29 Hep Bs Antibody > 1000.0 (11.5-1000) H 01/25/24 01:29 Hep B Core Total Ab Non-reactive (Nonreactive) 01/25/24 01:29 Hepatitis C Antibody Non-reactive (Nonreactive) 01/25/24 01:29 HIV 1&2 Ab & HIV 1 Ag Non-reactive (Non-Reactiv) 01/25/24 01:29 HIV 1&2 Antibody Non-reactive (Non-Reactiv) 01/25/24 01:29 Vitals Last Vital Signs Temp 98.1 F 01/27/24 07:16 Pulse 70 01/27/24 07:16 Resp 16 01/27/24 09:03 BP 158/98 01/27/24 07:16 Pulse Ox 96 01/27/24 07:16 O2 Del Method Room Air 01/27/24 07:16 Discharge Plan Discharge Patient Disposition: Home Condition: Stable Prescriptions: New Carafate 1 gram tablet 1 g PO BID 28 Days Qty: 56 0RF Continued aspirin [Children's Aspirin] 81 mg tablet,chewable 81 mg PO DAILY Creon 12,000-38,000 -60,000 unit capsule,delayed release(DR/EC) 1 cap PO TID Rx Instructions: administer with meals and/or snacks buspirone 10 mg tablet 10 mg PO BID Qty: 60 1RF atomoxetine 60 mg capsule 60 mg PO DAILY Qty: 30 1RF sertraline [Zoloft] 100 mg tablet 150 mg PO DAILY Qty: 45 1RF mirtazapine [Remeron] 30 mg tablet 30 mg PO .HS Qty: 30 1RF levocetirizine 5 mg tablet 5 mg PO DAILY magnesium 250 mg tablet 250 mg PO .QOD folic acid 1 mg Tablet 1 mg PO DAILY Qty: 90 0RF thiamine mononitrate (vit B1) [Vitamin B-1 (mononitrate)] 100 mg Tablet 100 mg PO DAILY Qty: 90 0RF multivitamin with folic acid [Thera] 400 mcg Tablet 1 tab PO DAILY Qty: 90 0RF potassium citrate 99 mg Capsule 99 mg PO DAILY Changed amlodipine 5 mg tablet 10 mg PO DAILY Qty: 90 0RF Protonix 40 mg tablet,delayed release (DR/EC) 40 mg PO DAILY Qty: 10 0RF Held lisinopril 20 mg tablet 20 mg PO DAILY Hold Instructions: Resume on 02/03/24. Discharge Orders: Discharge Order (Routine); Ordered 01/27/24 Ordered By: Anand Fierro Referrals: Mahamed Sales MD [Primary Care Provider] - 02/01/24 11:00 am Discharge Diet: Regular and GI Soft Discharge Activity: Resume usual activity and Increase activity as tolerated Patient Instructions: Sucralfate (By mouth), Alcohol Withdrawal (GEN), Opioid Safety Activity Restrictions/Additional Instructions: Take Carafate twice daily. Dose of amlodipine has been changed to 10 mg oral daily. Do not take lisinopril for next 1 week. Check your blood pressure daily and maintain a blood pressure diary. Goal blood pressure should be less than 140/90 mmHg. Continue with mechanical soft diet with multiple small meals. Please maintain oral hydration with at least 2 to 3 L of liquid daily. Discharge Attestations 2 Time Spent in Discharge Care*: greater than 30 min Specific Discharge Activities: educating patient, educating and/or supporting family/caregiver, discussing with pcp/other providers, discussing with continuous pillowcase cutter/social workers/dc planners, documenting/other paperwork and evaluating patient/reviewing data Status at Discharge: Cognitive status at discharge: cognitively intact , Behavioral status at discharge: cooperative , Functional status at discharge: independent ambulation , Overall status at discharge: patient is back to baseline Quality Metrics Clinical Quality Measures [ No reported AMI, CVA or VTE this stay] Coding Level of Care Code 34930 Total time (in minutes) for Discharge: 60 Diagnoses Acute renal failure N17.9 Alcohol abuse F10.10 Chronic pancreatitis K86.1 Pancreatitis type: unspecified pancreatitis type Generalized anxiety disorder F41.1 Thrombocytosis D75.839
== END 2024-01-27 12:57 | disposition home or self-care (01) | DRG 683 ==
LOC: ER 04:12 → MEDSURG 10:51
PROVIDERS: Admitting Provider Internal Medicine; Emergency Provider Emergency Medicine; PCP Family Medicine; Visit Provider Student in an Organized Health Care Education/Training Program
DX: N17.9 Acute kidney failure, unspecified (principal); K86.1 Other chronic pancreatitis; N39.0 Urinary tract infection, site not specified; F10.10 Alcohol abuse, uncomplicated; F41.1 Generalized anxiety disorder; D75.839 Thrombocytosis, unspecified; E86.0 Dehydration; I10 Essential (primary) hypertension; Z72.0 Tobacco use; F43.10 Post-traumatic stress disorder, unspecified; F90.9 Attention-deficit hyperactivity disorder, unspecified type
CPT/HCPCS: 36415; 51702; 71045; 74176; 80048; 80053; 80061; 80306; 80307; 81001; 82140; 82436; 82550; 82565; 82570; 82607; 82746; 83036; 83540; 83550; 83605; 83690; 83735; 84100; 84133; 84145; 84300; 84443; 85025; 85610; 86140; 86705; 86706; 86709; 86803; 87040; 87086; 87340; 87806; 93005; 96372; J0696; J1170; J1644; J2405; J7030

== ENCOUNTER 2024-03-10 23:48 | Emergency (ER) | payer MEDICAID, SELFPAY ==
--- NOTE | 2024-03-10 23:46 | ECG_ITS ---
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 Measurements Intervals [place] Rate: 111 P: 67 NV: 142 QRS: 89 QRSD: 93 T: 46 QT: 353 QTc: 481 Interpretive Statements SINUS TACHYCARDIA POSSIBLE LEFT ATRIAL ENLARGEMENT [-0.1mV P-WAVE IN V1/V2] ST DEVIATION AND MODERATE T-WAVE ABNORMALITY, CONSIDER ANTERIOR ISCHEMIA [-0.1+ mV T-WAVE IN V3/V4] Compared to ECG 01/27/2024 04:34:51 T-wave abnormality now present Possible ischemia now present Sinus bradycardia no longer present Electronically Signed On 03-11-2024 11:55:33 CDT by Jamal Godwin M.D. [id number]
[2024-03-10 23:53] VITALS: BP 153/109; PULSE 110; RESP 18; TEMP 36.9; O2SAT 98
[2024-03-10 23:56] VITALS: PULSE 112; RESP 18; O2SAT 99
--- NOTE | 2024-03-11 00:03 | ED_ITS ---
HPI - Chest Pain 2 General: Chief Complaint: Chest Pain Stated Complaint: Chest Pains Time Seen by Provider: 03/11/24 00:03 History of Present Illness: Patient presents to the ER with epigastric type abdominal pain. He said it feels similar to his pancreatitis and pleurisy but just worse. This been going on for about the last 3 days. Patient has been drinking alcohol during this time. He says he is doing it just for pain relief. Review of Systems 2 General: Reports: 10 or more systems reviewed and unremarkable except in HPI and below PFSH ED 2 PFSH: Medical History Generalized anxiety disorder Cannabis use disorder Pseudocyst, pancreas Abdominal pain Acute pancreatitis Drug allergy Acute chest wall pain Acute pancreatitis History of ADHD Psychiatric care Tobacco use Hypomagnesemia Hepatomegaly Transaminitis Alcohol intoxication Alcoholism Esophagitis Alcohol intoxication Acute pancreatitis Pseudocyst of pancreas Polysubstance abuse History of suicide attempt C7 cervical fracture C2 cervical fracture L4 vertebral fracture Alcohol abuse PTSD (post-traumatic stress disorder) Elevated transaminase level Pancreatitis, alcoholic, acute Surgical History History of appendectomy History of splenectomy Family History Other Diabetes Social History Smoking and tobacco/nicotine status: current every day tobacco/nicotine user Alcohol intake: current Alcohol intake frequency: 3 or more drinks per day Alcohol type: hard liquor Substance/Drug Use: current Substance/Drug use frequency: daily Physical Exam 2 Const: COMMON NORMALS: no acute distress, average body habitus, patient oriented x3, no limitations, healthy appearing, alert and well nourished HENMT: COMMON NORMALS: normocephalic, atraumatic, hearing grossly normal bilaterally, external ears normal, Normal external nose present and moist oral mucous membranes HEAD & SCALP: normocephalic and atraumatic NOSE: Normal external nose present EXTERNAL EAR: Yes external ears normal Neck/C-Spine: COMMON NORMALS: no JVD Chest: COMMONS NORMALS: normal inspection of the chest and normal palpation of entire chest wall Resp: COMMON NORMALS: normal respiratory effort, No retractions, No use of accessory muscles and clear to auscultation bilaterally AUSCULTATION: clear to auscultation bilaterally Cardio: COMMON NORMALS: no JVD, regular rate, regular rhythm, S1 normal heart sound present, S2 normal heart sound present, No gallops present (Cardio), No clicks present (Cardio), No murmurs present (Cardio) and No rub (Cardio) R ATE: regular rate RHYTHM: regular rhythm HEART SOUNDS: S1 normal heart sound present and S2 normal heart sound present GI: COMMON NORMALS: Normal to inspection, nondistended, normoactive bowel sounds present, Soft to palpation, No hepatosplenomegaly present and no masses; negative for non-tender (Tender to palpate over epigastric right upper quadrant region) PALPATION: Yes Soft to palpation and Yes No hepatosplenomegaly present Neuro: COMMON NORMALS: patient oriented x3 SENSORIUM/ORIENTATION: Yes alert Course 2 Vital Signs: Vital signs: Vital Signs Temperature 98.4 F 03/10/24 23:53 Pulse Rate 108 H 03/11/24 00:26 Respiratory Rate 16 03/11/24 00:26 Blood Pressure 149/103 03/11/24 00:26 Pulse Oximetry 99 03/11/24 00:26 Oxygen Delivery Me thod Room Air 03/10/24 23:53 MDM - Chest Pain Medical Decision Making Patient presents to the ER with upper epigastric region after drinking alcohol with a known history of chronic pancreatitis secondary to alcohol. Patient was worked up with lab work. Patient was given Toradol 30 mg IV which did not seem to help the pain. Patient was given 4 mg morphine. And will be discharged. Patient has to follow-up with his GI doctor and/or pain management doctor. Lab Data 03/11/24 00:15 03/11/24 00:15 Laboratory Results WBC 14.63 10^3/uL (3.29-11.43) H 03/11/24 00:15 RBC 4.50 10^6/uL (3.85-5.65) 03/11/24 00:15 Hgb 14.90 g/dL (11.27-16.99) 03/11/24 00:15 Hct 42.6 % (37-53) 03/11/24 00:15 MCV 94.7 fl (82-101) 03/11/24 00:15 MCH 33.1 pg (27-33) H 03/11/24 00:15 MCHC 35.0 g/dL (30-55) 03/11/24 00:15 RDW 15.1 % (12.1-15.1) 03/11/24 00:15 Plt Count 418 10^3/cmm (157-399) H 03/11/24 00:15 MPV 8.8 fL (7.4-10.4) 03/11/24 00:15 Neut % (Auto) 48.2 % 03/11/24 00:15 Lymph % (Auto) 40.7 % 03/11/24 00:15 [place] % (Auto) 9.9 % 03/11/24 00:15 Eos % (Auto) 0.5 % 03/11/24 00:15 Baso % (Auto) 0.4 % 03/11/24 00:15 Neut # (Auto) 7.05 10^3/uL (1.8-7.7) 03/11/24 00:15 Lymph # (Auto) 6.0 10^3/uL (0.8-4.8) H 03/11/24 00:15 [place] # (Auto) 1.5 10^3/uL (0.2-0.9) H 03/11/24 00:15 Eos # (Auto) 0.1 10^3/uL (0.0-0.8) 03/11/24 00:15 Baso # (Auto) 0.1 10^3/uL (0.0-0.1) 03/11/24 00:15 Nucleated RBC % (auto) 0 % 03/11/24 00:15 Nucleated RBCs # 0.0 /100WBC 03/11/24 00:15 Sodium 137 mmol/L (136-145) 03/11/24 00:15 Potassium 3.4 mmol/L (3.5-5.1) L 03/11/24 00:15 Chloride 100 mmol/L (98-107) 03/11/24 00:15 Carbon Dioxide 22 mmol/L (22-29) 03/11/24 00:15 Anion Gap 18.4 (5-19) 03/11/24 00:15 BUN 10 mg/dL (6-20) 03/11/24 00:15 Creatinine 0.8 mg/dL (0.7-1.2) 03/11/24 00:15 GFR Calculation 108.8 mL/min (90-130) 03/11/24 00:15 Glucose 124 mg/dL (65-115) H 03/11/24 00:15 Calculated Osmolality 284 mOsm/kg (285-295) L 03/11/24 00:15 Calcium 9.5 mg/dL (8.5-10.5) 03/11/24 00:15 Magnesium 1.9 mg/dL (1.7-2.3) 03/11/24 00:15 Total Bilirubin 0.3 mg/dL (0.15-1.2) 03/11/24 00:15 AST 16 U/L (0-40) 03/11/24 00:15 ALT 42 U/L (0-41) H 03/11/24 00:15 Alkaline Phosphatase 255 U/L (40-130) H 03/11/24 00:15 Troponin T Baseline < 6 ng/L (0-15) 03/11/24 00:15 Total Protein 6.9 g/dL (6.6-8.7) 03/11/24 00:15 Albumin 4.2 g/dL (3.5-5.2) 03/11/24 00:15 Globulin 2.7 g/dL (1.3-4.6) 03/11/24 00:15 Lipase 59 U/L (13-60) 03/11/24 00:15 Ethyl Alcohol < 10 mg/dL (0-10) 03/11/24 00:15 All radiology interpretation(s) finalized by discharge Discharge Plan Discharge Patient Disposition: Home Clinical Impression: Chronic pancreatitis Qualifiers: Pancreatitis type: unspecified pancreatitis type Qualified Code(s): K86.1 - Other chronic pancreatitis Condition: Stable Prescriptions: No Action aspirin [Children's Aspirin] 81 mg tablet,chewable 81 mg PO DAILY Creon 12,000-38,000 -60,000 unit capsule,delayed release(DR/EC) 1 cap PO TID Rx Instructions: administer with meals and/or snacks pregabalin [Lyrica] 25 mg capsule 25 mg PO DAILY atomoxetine 60 mg capsule 60 mg PO DAILY Qty: 30 1RF buspirone 15 mg tablet 15 mg PO BID Qty: 60 1RF sertraline [Zoloft] 100 mg tablet 150 mg PO DAILY Qty: 45 1RF mirtazapine [Remeron] 30 mg tablet 30 mg PO .HS Qty: 30 1RF varenicline [Chantix Starting Month Box] 0.5 mg (11)- 1 mg (42) tablets,dose pack See Rx Instructions PO PER PKG DIR Qty: 53 0RF Rx Instructions: PO PER PKG DIR levocetirizine 5 mg tablet 5 mg PO DAILY lisinopril 20 mg tablet 20 mg PO DAILY Hold Instructions: Resume on 02/03/24. magnesium 250 mg tablet 250 mg PO .QOD folic acid 1 mg Tablet 1 mg PO DAILY Qty: 90 0RF thiamine mononitrate (vit B1) [Vitamin B-1 (mononitrate)] 100 mg Tablet 100 mg PO DAILY Qty: 90 0RF multivitamin with folic acid [Thera] 400 mcg Tablet 1 tab PO DAILY Qty: 90 0RF potassium citrate 99 mg Capsule 99 mg PO DAILY amlodipine 5 mg tablet 10 mg PO DAILY Qty: 90 0RF Protonix 40 mg tablet,delayed release (DR/EC) 40 mg PO DAILY Qty: 10 0RF Discharge Orders: Discharge ED (Routine); Ordered 03/11/24 Ordered By: Christopher Hutton Referrals: Mahamed Sales MD [Primary Care Provider] - Patient Instructions: Pancreatitis (ED) Activity Restrictions/Additional Instructions: It appears she your chronic pancreatitis is flared up again. You have been given pain medicine in the ER to help symptomatically. Please follow-up with your GI or chronic pain management doctor for chronic pain from your pancreatitis. Please stop drinking alcohol as this is a known flare of your chronic pancreatitis. Coding Level of Care Code ED Travel Registered Nurse Pacu for Marko Avery
--- NOTE | 2024-03-11 00:05 | XRR_ITS ---
PROCEDURE INFORMATION: Exam: XR Chest Exam date and time: 03/11/2024 12:36 AM Age: 38 years old Clinical indication: Chest pressure and chest wall pain; Prior surgery; Surgery date: 6+ months; Surgery type: Right clavicle SX; Additional info: Chest pain TECHNIQUE: Imaging protocol: Radiologic exam of the chest. Views: 1 view. COMPARISON: CR XR chest 1V portable [id number] 01/26/2024 3:49 PM FINDINGS: Lungs: Minimal right basilar atelectasis or scarring. No consolidation. Pleural spaces: No pleural effusion or pneumothorax. Heart/Mediastinum: The cardiomediastinal silhouette is within normal limits. Bones/joints: No acute osseous abnormalities are seen. Distal right clavicular ORIF. XR/XR chest 1V portable [id number] IMPRESSION: No acute cardiopulmonary disease.
[2024-03-11 00:19] LABS: Basophils # 0.1 10^3/uL (0.0-0.1); Basophils % 0.4 %; Eosinophils # 0.1 10^3/uL (0.0-0.8); Eosinophils % 0.5 %; Hematocrit 42.6 % (37-53); Lymphocytes % 40.7 %; Mean Corpuscular Hemoglobin 33.1 pg (27-33); Mean Corpuscular Volume 94.7 fl (82-101); Mean Platelet Volume 8.8 fL (7.4-10.4); Monocytes # 1.5 10^3/uL (0.2-0.9); Monocytes % 9.9 %; Neutrophils # 7.05 10^3/uL (1.8-7.7); Neutrophils % 48.2 %; Nucleated Red Blood Cells % 0 %; Platelet Count 418 10^3/cmm (157-399); Red Cell Distribution Width 15.1 % (12.1-15.1); White Blood Count 14.63 10^3/uL (3.29-11.43)
[2024-03-11 00:26] VITALS: BP 149/103; PULSE 108; RESP 16; O2SAT 99
[2024-03-11 00:35] LABS: Troponin(5th) Baseline < 6 ng/L (0-15)
[2024-03-11 00:36] LABS: Alanine Aminotransferase 42 U/L (0-41); Albumin Level 4.2 g/dL (3.5-5.2); Alkaline Phosphatase 255 U/L (40-130); Aspartate Amino Transferase 16 U/L (0-40); Blood Urea Nitrogen 10 mg/dL (6-20); Calcium 9.5 mg/dL (8.5-10.5); Carbon Dioxide 22 mmol/L (22-29); Chloride 100 mmol/L (98-107); Creatinine Clr Calc Pharmacy 139.1909; Globulin 2.7 g/dL (1.3-4.6); Glomerular Filtration Rate 108.8 mL/min (90-130); Glucose 124 mg/dL (65-115); Magnesium 1.9 mg/dL (1.7-2.3); Osmolality Calculated 284 mOsm/kg (285-295); Sodium 137 mmol/L (136-145); Total Bilirubin 0.3 mg/dL (0.15-1.2); Total Protein 6.9 g/dL (6.6-8.7)
[2024-03-11] MEDS: metoclopramide 5 mg/mL SDV 2 mL 10 MG IVP (00:46)
[2024-03-11] MEDS: ketorolac 30 mg/mL INJ IVP (00:46)
[2024-03-11 00:51] LABS: Lipase 59 U/L (13-60)
[2024-03-11 01:03] LABS: Alcohol Level < 10 mg/dL (0-10); Anion Gap 18.4 (5-19); Potassium 3.4 mmol/L (3.5-5.1)
[2024-03-11 01:10] LABS: Slide Review Slide Review Perform
[2024-03-11 01:19] VITALS: RESP 16; O2SAT 99
[2024-03-11] MEDS: morphine 4 mg/mL SDV 1 mL IVP (01:19)
== END 2024-03-11 01:26 | disposition home or self-care (01) ==
PROVIDERS: Emergency Provider Emergency Medicine; PCP Family Medicine
DX: K86.1 Other chronic pancreatitis (principal); Z79.82 Long term (current) use of aspirin; Z72.0 Tobacco use
CPT/HCPCS: 71045; 80053; 80307; 83690; 83735; 84484; 85025; 93005; 96374; 96375; 99285; J1885; J2270; J2765

== ENCOUNTER 2024-04-21 23:20 | Emergency (ER) | payer MEDICAID, SELFPAY ==
[2024-04-21 23:27] VITALS: BP 142/92; PULSE 118; RESP 20; TEMP 36.8; O2SAT 97
--- NOTE | 2024-04-21 23:32 | ECG_ITS ---
[facility] Test Date: 2024-04-21 Pat Name: Elena Hernandez Department: Room: Gender: Male Provider Scribe: : [id number] Requested By: Christopher Hutton Order Number: [id number] Boni MD: Jamal Godwin M.D. Measurements Intervals [place] Rate: 124 P: 67 TN: 144 QRS: 86 QRSD: 88 T: 56 QT: 337 QTc: 484 Interpretive Statements SINUS TACHYCARDIA NONSPECIFIC T-WAVE ABNORMALITY Compared to ECG 03/10/2024 23:46:40 Possible ischemia no longer present T-wave abnormality still present Electronically Signed On 04-22-2024 08:37:33 CDT by Jamal Godwin M.D. [id number]
--- NOTE | 2024-04-22 01:10 | XRR_ITS ---
PROCEDURE INFORMATION: Exam: XR Chest Exam date and time: 04/22/2024 1:16 AM Age: 38 years old Clinical indication: Cough; Prior surgery; Surgery date: 6+ months; Surgery type: Clavicle; Additional info: Cough wheezine TECHNIQUE: Imaging protocol: Radiologic exam of the chest. Views: 1 view. COMPARISON: CR XR chest 1V portable [id number] 03/11/2024 12:36 AM FINDINGS: Lungs: Unremarkable. No consolidation. Pleural spaces: Unremarkable. No pleural effusion. No pneumothorax. Heart/Mediastinum: Unremarkable. No cardiomegaly. Bones/joints: Pain and screw fixation of the right clavicle. Healing fractures of the posterior right 5th-7th ribs. XR/XR chest 1V portable [id number] IMPRESSION: No acute findings.
--- NOTE | 2024-04-22 01:12 | ED_ITS ---
HPI - SOB/Dyspnea 2 General: Chief Complaint: Shortness of Breath/Dyspnea Stated Complaint: N/V, sob, chest pain Time Seen by Provider: 04/22/24 01:07 History of Present Illness: HPI Narrative: Patient presents to the ER with complains of his lungs burning tenderness along his right abdominal scar coughing chills. Patient said this been going on for about 3 days. Patient was seen at [facility] today he was given steroids and inhaler diagnosed with bronchitis. He did take his dose of the steroid today and uses inhaler and he said it did not seem to help. Patient is lying comfortably in bed in no acute distress and nontoxic appearance. Related Data Home Medications Medication Instructions Recorded Confirmed aspirin 81 mg chewable tablet 81 mg PO DAILY 06/22/23 03/03/24 (Children's Aspirin) potassium citrate 99 mg capsule 99 mg PO DAILY 10/06/23 03/03/24 levocetirizine 5 mg tablet 5 mg PO DAILY 10/31/23 03/03/24 lisinopril 20 mg tablet 20 mg PO DAILY 12/23/23 03/03/24 magnesium 250 mg tablet 250 mg PO .QOD 12/23/23 03/03/24 [id number] 1 cap PO TID 01/18/24 03/03/24 12,000-38,000-60,000 unit capsule,delayed rel (Creon) pregabalin 25 mg capsule (Lyrica) 25 mg PO DAILY 03/03/24 03/03/24 Previous Rx's Medication Instructions Recorded folic acid 1 mg tablet 1 mg PO DAILY #90 tabs 03/03/23 multivitamin with folic acid 400 1 tab PO DAILY #90 tabs 03/03/23 mcg tablet (Thera) thiamine mononitrate (vit B1) 100 100 mg PO DAILY #90 tabs 03/03/23 mg tablet (Vitamin B-1 (mononitrate)) amlodipine 5 mg tablet 10 mg (2 x 5 mg) PO DAILY #90 tabs 01/27/24 pantoprazole 40 mg tablet,delayed 40 mg PO DAILY #10 tabs 01/27/24 release (Protonix) atomoxetine 60 mg capsule 60 mg PO DAILY #30 caps 03/03/24 buspirone 15 mg tablet 15 mg PO BID #60 tabs 03/03/24 mirtazapine 30 mg tablet (Remeron) 30 mg PO .HS #30 tabs 03/03/24 sertraline 100 mg tablet (Zoloft) 150 mg (1.5 x 100 mg) PO DAILY #45 03/03/24 tabs varenicline 1 mg tablet (Chantix 1 mg PO BID #56 tabs 04/01/24 Continuing Month Box) doxycycline hyclate 100 mg tablet 100 mg PO BID 7 days #14 tabs 04/22/24 Allergies Allergy/AdvReac Type Severity Reaction Status Date / Time piperacillin [From Zosyn] Allergy ADR-Swelling Verified 04/21/24 23:31 of the Eye tazobactam [From Zosyn] Allergy ADR-Swelling Verified 04/21/24 23:31 of the Eye Review of Systems 2 General: Reports: 10 or more systems reviewed and unremarkable except in HPI and below PFSH ED 2 PFSH: Medical History Generalized anxiety disorder Cannabis use disorder Pseudocyst, pancreas Abdominal pain Acute pancreatitis Drug allergy Acute chest wall pain Acute pancreatitis History of ADHD Psychiatric care Tobacco use Hypomagnesemia Hepatomegaly Transaminitis Alcohol intoxication Alcoholism Esophagitis Alcohol intoxication Acute pancreatitis Pseudocyst of pancreas Polysubstance abuse History of suicide attempt C7 cervical fracture C2 cervical fracture L4 vertebral fracture Alcohol abuse PTSD (post-traumatic stress disorder) Elevated transaminase level Pancreatitis, alcoholic, acute Surgical History History of appendectomy History of splenectomy Family History Other Diabetes Social History Smoking and tobacco/nicotine status: current every day tobacco/nicotine user Alcohol intake: current Alcohol intake frequency: 3 or more drinks per day Alcohol type: hard liquor Substance/Drug Use: current Substance/Drug use frequency: daily Physical Exam 2 Const: COMMON NORMALS: no acute distress, average body habitus, patient oriented x3, no limitations, healthy appearing, alert and well nourished HENMT: COMMON NORMALS: normocephalic, atraumatic, hearing grossly normal bilaterally, external ears normal, Normal external nose present and moist oral mucous membranes HEAD & SCALP: normocephalic and atraumatic NOSE: Normal external nose present EXTERNAL EAR: Yes external ears normal Neck/C-Spine: COMMON NORMALS: no JVD Chest: COMMONS NORMALS: normal inspection of the chest and normal palpation of entire chest wall Resp: COMMON NORMALS: normal respiratory effort, No retractions, No use of accessory muscles and clear to auscultation bilaterally AUSCULTATION: clear to auscultation bilaterally Cardio: COMMON NORMALS: no JVD, regular rate, regular rhythm, S1 normal heart sound present, S2 normal heart sound present, No gallops present (Cardio), No clicks present (Cardio), No murmurs present (Cardio) and No rub (Cardio) R ATE: regular rate RHYTHM: regular rhythm HEART SOUNDS: S1 normal heart sound present and S2 normal heart sound present GI: COMMON NORMALS: Normal to inspection, nondistended, normoactive bowel sounds present, Soft to palpation, non-tender, No hepatosplenomegaly present and no masses PALPATION: Yes Soft to palpation and Yes No hepatosplenomegaly present Neuro: COMMON NORMALS: patient oriented x3 SENSORIUM/ORIENTATION: Yes alert Course 2 Vital Signs: Vital signs: Vital Signs Temperature 98.2 F 04/21/24 23:27 Pulse Rate 104 H 04/22/24 02:38 Respiratory Rate 18 04/22/24 01:24 Blood Pressure 151/96 04/22/24 02:38 Pulse Oximetry 96 04/22/24 02:38 Oxygen Delivery Me thod Room Air 04/22/24 01:24 Fraction of Inspir ed Oxygen 21 04/22/24 01:24 MDM - SOB/Dyspnea Medical Decision Making Lab work revealed a white count 14.7, otherwise unremarkable, x-ray preliminary report read by myself is negative for infiltrate, patient be placed on an antibiotic and told to continue the steroid. Patient be discharged home. Medical Records I reviewed the patient's medical records. Lab Data I reviewed the patient's lab results. 04/22/24 01:13 04/22/24 01:13 Labs/Radiology: Laboratory Results WBC 14.76 10^3/uL (3.29-11.43) H 04/22/24 01:13 RBC 4.66 10^6/uL (3.85-5.65) 04/22/24 01:13 Hgb 15.30 g/dL (11.27-16.99) 04/22/24 01:13 Hct 44.5 % (37-53) 04/22/24 01:13 MCV 95.5 fl (82-101) 04/22/24 01:13 MCH 32.8 pg (27-33) 04/22/24 01:13 MCHC 34.4 g/dL (30-55) 04/22/24 01:13 RDW 14.9 % (12.1-15.1) 04/22/24 01:13 Plt Count 413 10^3/cmm (157-399) H 04/22/24 01:13 MPV 8.4 fL (7.4-10.4) 04/22/24 01:13 Neut % (Auto) 71.3 % 04/22/24 01:13 Lymph % (Auto) 18.2 % 04/22/24 01:13 [place] % (Auto) 9.0 % 04/22/24 01:13 Eos % (Auto) 0.5 % 04/22/24 01:13 Baso % (Auto) 0.4 % 04/22/24 01:13 Neut # (Auto) 10.53 10^3/uL (1.8-7.7) H 04/22/24 01:13 Lymph # (Auto) 2.7 10^3/uL (0.8-4.8) 04/22/24 01:13 [place] # (Auto) 1.3 10^3/uL (0.2-0.9) H 04/22/24 01:13 Eos # (Auto) 0.1 10^3/uL (0.0-0.8) 04/22/24 01:13 Baso # (Auto) 0.1 10^3/uL (0.0-0.1) 04/22/24 01:13 Nucleated RBC % (auto) 0 % 04/22/24 01:13 Nucleated RBCs # 0.0 /100WBC 04/22/24 01:13 Sodium 139 mmol/L (136-145) 04/22/24 01:13 Potassium 3.9 mmol/L (3.5-5.1) 04/22/24 01:13 Chloride 104 mmol/L (98-107) 04/22/24 01:13 Carbon Dioxide 22 mmol/L (22-29) 04/22/24 01:13 Anion Gap 16.9 (5-19) 04/22/24 01:13 BUN 8 mg/dL (6-20) 04/22/24 01:13 Creatinine 0.7 mg/dL (0.7-1.2) 04/22/24 01:13 GFR Calculation 126.9 mL/min (90-130) 04/22/24 01:13 Glucose 119 mg/dL (65-115) H 04/22/24 01:13 Calculated Osmolality 287 mOsm/kg (285-295) 04/22/24 01:13 Calcium 9.1 mg/dL (8.5-10.5) 04/22/24 01:13 Total Bilirubin 0.3 mg/dL (0.15-1.2) 04/22/24 01:13 AST 31 U/L (0-40) 04/22/24 01:13 ALT 34 U/L (0-41) 04/22/24 01:13 Alkaline Phosphatase 221 U/L (40-130) H 04/22/24 01:13 Total Protein 7.4 g/dL (6.6-8.7) 04/22/24 01:13 Albumin 4.2 g/dL (3.5-5.2) 04/22/24 01:13 Globulin 3.2 g/dL (1.3-4.6) 04/22/24 01:13 Procalcitonin 0.15 ng/mL (0-0.5) 04/22/24 01:13 All radiology interpretation(s) finalized by discharge Discharge Plan Discharge Patient Disposition: Home Clinical Impression: Bronchitis Condition: Stable Prescriptions: New doxycycline hyclate 100 mg tablet 100 mg PO BID 7 Days Qty: 14 0RF No Action aspirin [Children's Aspirin] 81 mg tablet,chewable 81 mg PO DAILY Creon 12,000-38,000 -60,000 unit capsule,delayed release(DR/EC) 1 cap PO TID Rx Instructions: administer with meals and/or snacks pregabalin [Lyrica] 25 mg capsule 25 mg PO DAILY atomoxetine 60 mg capsule 60 mg PO DAILY Qty: 30 1RF buspirone 15 mg tablet 15 mg PO BID Qty: 60 1RF sertraline [Zoloft] 100 mg tablet 150 mg PO DAILY Qty: 45 1RF mirtazapine [Remeron] 30 mg tablet 30 mg PO .HS Qty: 30 1RF varenicline [Chantix Continuing Month Box] 1 mg tablet 1 mg PO BID Qty: 56 0RF levocetirizine 5 mg tablet 5 mg PO DAILY lisinopril 20 mg tablet 20 mg PO DAILY Hold Instructions: Resume on 02/03/24. magnesium 250 mg tablet 250 mg PO .QOD folic acid 1 mg Tablet 1 mg PO DAILY Qty: 90 0RF thiamine mononitrate (vit B1) [Vitamin B-1 (mononitrate)] 100 mg Tablet 100 mg PO DAILY Qty: 90 0RF multivitamin with folic acid [Thera] 400 mcg Tablet 1 tab PO DAILY Qty: 90 0RF potassium citrate 99 mg Capsule 99 mg PO DAILY amlodipine 5 mg tablet 10 mg PO DAILY Qty: 90 0RF Protonix 40 mg tablet,delayed release (DR/EC) 40 mg PO DAILY Qty: 10 0RF Discharge Orders: Discharge ED (Routine); Ordered 04/22/24 Ordered By: Christopher Hutton Referrals: Mahamed Sales MD [Primary Care Provider] - 1 week Patient Instructions: Acute Bronchitis (ED) Activity Restrictions/Additional Instructions: Your lab work was unremarkable and your x-ray did not show any signs of infiltrate. This would go along with a diagnosis of bronchitis. You have been placed on an antibiotic and a prescription was sent to your pharmacy. Please fill the prescription and take it as directed as well as steroids prescribed by the urgent care doctor. Please follow-up with your family doctor in the next 7 days for further evaluation and treatment as needed. Coding Level of Care Code ED Travel Registered Nurse [facility] for Marko Avery
[2024-04-22 01:17] LABS: Basophils # 0.1 10^3/uL (0.0-0.1); Basophils % 0.4 %; Eosinophils # 0.1 10^3/uL (0.0-0.8); Eosinophils % 0.5 %; Hematocrit 44.5 % (37-53); Lymphocytes # 2.7 10^3/uL (0.8-4.8); Lymphocytes % 18.2 %; Mean Corpuscular HGB Conc 34.4 g/dL (30-55); Mean Corpuscular Hemoglobin 32.8 pg (27-33); Mean Corpuscular Volume 95.5 fl (82-101); Mean Platelet Volume 8.4 fL (7.4-10.4); Monocytes # 1.3 10^3/uL (0.2-0.9); Neutrophils # 10.53 10^3/uL (1.8-7.7); Neutrophils % 71.3 %; Nucleated Red Blood Cells % 0 %; Platelet Count 413 10^3/cmm (157-399); Red Blood Count 4.66 10^6/uL (3.85-5.65); Red Cell Distribution Width 14.9 % (12.1-15.1); White Blood Count 14.76 10^3/uL (3.29-11.43)
[2024-04-22] MEDS: sodium chloride 0.9% 1,000 ML 999 ML IV (01:20)
[2024-04-22] MEDS: metoclopramide 5 mg/mL SDV 2 mL 10 MG IVP (01:20)
[2024-04-22] MEDS: ipratropium-albuterol 3 mL Neb INHALATION (01:23)
[2024-04-22 01:24] VITALS: PULSE 101; RESP 18; O2SAT 98
[2024-04-22 01:37] LABS: Alanine Aminotransferase 34 U/L (0-41); Albumin Level 4.2 g/dL (3.5-5.2); Alkaline Phosphatase 221 U/L (40-130); Anion Gap 16.9 (5-19); Aspartate Amino Transferase 31 U/L (0-40); Blood Urea Nitrogen 8 mg/dL (6-20); Calcium 9.1 mg/dL (8.5-10.5); Carbon Dioxide 22 mmol/L (22-29); Chloride 104 mmol/L (98-107); Creatinine Clr Calc Pharmacy 160.7201; Globulin 3.2 g/dL (1.3-4.6); Glomerular Filtration Rate 126.9 mL/min (90-130); Glucose 119 mg/dL (65-115); Osmolality Calculated 287 mOsm/kg (285-295); Potassium 3.9 mmol/L (3.5-5.1); Sodium 139 mmol/L (136-145); Total Bilirubin 0.3 mg/dL (0.15-1.2); Total Protein 7.4 g/dL (6.6-8.7)
[2024-04-22 01:44] LABS: Procalcitonin 0.15 ng/mL (0-0.5)
[2024-04-22 02:12] VITALS: BP 132/89; PULSE 106; O2SAT 93
[2024-04-22 02:38] VITALS: BP 151/96; PULSE 104; O2SAT 96
[2024-04-22] MEDS: doxycycline 100 mg Tablet PO (02:57)
[2024-04-22 03:04] VITALS: BP 136/83; PULSE 91; O2SAT 96
== END 2024-04-22 03:00 | disposition home or self-care (01) ==
PROVIDERS: Emergency Provider Emergency Medicine; PCP Family Medicine
DX: J40 Bronchitis, not specified as acute or chronic (principal); Z79.82 Long term (current) use of aspirin; Z72.0 Tobacco use
CPT/HCPCS: 71045; 80053; 84145; 85025; 93005; 94640; 96361; 96374; 99285; J2765; J7030

== ENCOUNTER 2024-05-29 18:39 | Emergency (ER) | payer MEDICAID, SELFPAY ==
[2024-05-29 18:55] VITALS: BP 131/92; PULSE 106; RESP 22; TEMP 36.4; O2SAT 96; BMI 25.7
[2024-05-29 19:32] LABS: Basophils # 0.1 10^3/uL (0.0-0.1); Basophils % 0.4 %; Eosinophils # 0.1 10^3/uL (0.0-0.8); Eosinophils % 0.4 %; Hematocrit 44.2 % (37-53); Lymphocytes # 3.6 10^3/uL (0.8-4.8); Lymphocytes % 22.8 %; Mean Corpuscular HGB Conc 34.4 g/dL (30-55); Mean Corpuscular Hemoglobin 33.4 pg (27-33); Mean Corpuscular Volume 97.1 fl (82-101); Mean Platelet Volume 8.8 fL (7.4-10.4); Monocytes # 1.4 10^3/uL (0.2-0.9); Monocytes % 9.2 %; Neutrophils # 10.44 10^3/uL (1.8-7.7); Neutrophils % 66.8 %; Nucleated Red Blood Cells % 0 %; Platelet Count 418 10^3/cmm (157-399); Red Blood Count 4.55 10^6/uL (3.85-5.65); Red Cell Distribution Width 13.4 % (12.1-15.1); White Blood Count 15.65 10^3/uL (3.29-11.43)
[2024-05-29 19:50] LABS: Alanine Aminotransferase 48 U/L (0-41); Albumin Level 4.4 g/dL (3.5-5.2); Alcohol Level 13 mg/dL (0-10); Alkaline Phosphatase 222 U/L (40-130); Anion Gap 20.5 (5-19); Aspartate Amino Transferase 30 U/L (0-40); Blood Urea Nitrogen 14 mg/dL (6-20); Calcium 9.2 mg/dL (8.5-10.5); Carbon Dioxide 22 mmol/L (22-29); Chloride 93 mmol/L (98-107); Creatinine Clr Calc Pharmacy 125.1673; Globulin 3.3 g/dL (1.3-4.6); Glucose 114 mg/dL (65-115); Lipase 20 U/L (13-60); Osmolality Calculated 275 mOsm/kg (285-295); Potassium 3.5 mmol/L (3.5-5.1); Sodium 132 mmol/L (136-145); Total Bilirubin 0.4 mg/dL (0.15-1.2); Total Protein 7.7 g/dL (6.6-8.7)
--- NOTE | 2024-05-29 21:02 | ED_ITS ---
Documented by User: COLBY Hendrix 05/29/24 23:25 HPI - Nausea/Vomiting/Diarrhea 2 General: Chief complaint: Nausea/Vomiting/Diarrhea Stated complaint: N/V Time Seen by Provider: 05/29/24 20:15 History of Present Illness: 38-year-old male patient comes in today with 3 days episodes of nausea and vomiting and a headache. Patient denies any fever. Patient reports some dark stools but no blood in his vomitus. Patient does take medications routinely for high blood pressure, depression, neuropathy, chronic back pain, chronic pancreatitis, depression, and reflux. Patient appears nontoxic. Patient appears in mild pain. Related Data Home Medications Medication Instructions Recorded Confirmed aspirin 81 mg chewable tablet 81 mg PO DAILY 06/22/23 05/09/24 (Children's Aspirin) potassium citrate 99 mg capsule 99 mg PO DAILY 10/06/23 05/09/24 levocetirizine 5 mg tablet 5 mg PO DAILY 10/31/23 05/09/24 lisinopril 20 mg tablet 20 mg PO DAILY 12/23/23 05/09/24 magnesium 250 mg tablet 250 mg PO .QOD 12/23/23 05/09/24 [id number] 1 cap PO TID 01/18/24 05/09/24 12,000-38,000-60,000 unit capsule,delayed rel (Creon) pregabalin 25 mg capsule (Lyrica) 25 mg PO DAILY 03/03/24 05/09/24 Previous Rx's Medication Instructions Recorded folic acid 1 mg tablet 1 mg PO DAILY #90 tabs 03/03/23 multivitamin with folic acid 400 1 tab PO DAILY #90 tabs 03/03/23 mcg tablet (Thera) thiamine mononitrate (vit B1) 100 100 mg PO DAILY #90 tabs 03/03/23 mg tablet (Vitamin B-1 (mononitrate)) amlodipine 5 mg tablet 10 mg (2 x 5 mg) PO DAILY #90 tabs 01/27/24 pantoprazole 40 mg tablet,delayed 40 mg PO DAILY #10 tabs 01/27/24 release (Protonix) atomoxetine 60 mg capsule 60 mg PO DAILY #30 caps 05/09/24 buspirone 15 mg tablet 15 mg PO BID #60 tabs 05/09/24 mirtazapine 30 mg tablet (Remeron) 30 mg PO .HS #30 tabs 05/09/24 sertraline 100 mg tablet (Zoloft) 150 mg (1.5 x 100 mg) PO DAILY #45 05/09/24 tabs varenicline 1 mg tablet (Chantix 1 mg PO BID #56 tabs 05/27/24 Continuing Month Box) metoclopramide HCl 10 mg tablet 10 mg PO QID 7 days #28 tabs 05/29/24 sucralfate 1 gram tablet (Carafate) 1 g PO TID 4 weeks #84 tabs 05/29/24 Allergies Allergy/AdvReac Type Severity Reaction Status Date / Time piperacillin [From Zosyn] Allergy ADR-Swelling Verified 05/09/24 15:30 of the Eye tazobactam [From Zosyn] Allergy ADR-Swelling Verified 05/09/24 15:30 of the Eye Review of Systems 2 General: Reports: 10 or more systems reviewed and unremarkable except in HPI and below PFSH ED 2 PFSH: Medical History Generalized anxiety disorder Cannabis use disorder Pseudocyst, pancreas Abdominal pain Acute pancreatitis Drug allergy Acute chest wall pain Acute pancreatitis History of ADHD Psychiatric care Tobacco use Hypomagnesemia Hepatomegaly Transaminitis Alcohol intoxication Alcoholism Esophagitis Alcohol intoxication Acute pancreatitis Pseudocyst of pancreas Polysubstance abuse History of suicide attempt C7 cervical fracture C2 cervical fracture L4 vertebral fracture Alcohol abuse PTSD (post-traumatic stress disorder) Elevated transaminase level Pancreatitis, alcoholic, acute Surgical History History of appendectomy History of splenectomy Family History Other Diabetes Social History Smoking and tobacco/nicotine status: current every day tobacco/nicotine user Alcohol intake: current Alcohol intake frequency: 3 or more drinks per day Alcohol type: hard liquor Substance/Drug Use: current Substance/Drug use frequency: daily Physical Exam 2 Const: COMMON NORMALS: alert HENMT: COMMON NORMALS: normocephalic HEAD & SCALP: normocephalic Neck/C-Spine: COMMON NORMALS: full ROM Resp: COMMON NORMALS: normal respiratory effort and clear to auscultation bilaterally AUSCULTATION: clear to auscultation bilaterally Cardio: COMMON NORMALS: regular rate and regular rhythm RATE: regular rate RHYTHM: regular rhythm GI: AUSCULTATION: Yes normoactive bowel sounds PALPATION: Yes Firmness to palpation present (GI) Back/Pelvis: COMMON NORMALS: thoracic and lumbar spine normal to inspection Extremity: COMMON NORMALS: full ROM Neuro: SENSORIUM/ORIENTATION: Yes alert Skin: COMMON NORMALS: turgor normal GENERAL SKIN EXAM: turgor normal Course 2 Vital Signs: Vital signs: Vital Signs Temperature 97.5 F L 05/29/24 18:55 Pulse Rate 90 05/30/24 00:09 Respiratory Rate 12 05/30/24 00:09 Blood Pressure 117/79 05/30/24 00:09 Pulse Oximetry 97 05/30/24 00:09 Oxygen Delivery Me thod Room Air 05/30/24 00:01 MDM - Nausea/Vomiting/Diarrhea Medical Decision Making 38-year-old male patient comes in today with nausea and vomiting x 3 days and some mild abdominal discomfort. Patient also reports a change in his stool being darker than normal. Abdomen slightly distended but bowel sounds are present. Vital signs are normal. Respirations are even lungs are decreased in the bases. Differential diagnosis includes not limited to dehydration, pancreatitis, gastroenteritis, bowel obstruction. CBC noted some mild elevation in white count of 15,000. CMP noted at [address] of the abdomen pelvis noted some distal esophagitis and some duodenitis. Patient was given 2 L of IV fluids for fluid balance correction. Patient was given 80 of pantoprazole and 10 mg of metoclopramide and 12-1/2 mg of diphenhydramine. Patient then was also given half a milligram of hydromorphone for his pain. Patient was instructed to follow-up with his pancreatic doctor for possible evaluation of the duodenitis and the distal esophagitis. Patient was also written a prescription for some Reglan and some Carafate to further treat his duodenitis and distal esophagitis. Patient reported understanding of care plan and need for follow-up. Lab Data 05/29/24 19:19 05/29/24 19:19 Radiology Impressions Chest/Abdomen/Pelvis CT 05/29/24 21:07 IMPRESSION: 1. Distal esophageal wall thickening, please correlate for esophagitis. 2. Right lower lobe atelectasis. 3. Right upper lobe 6 mm nodule along with a right lower lobe superior segment 5.3 mm nodule, similar to prior exam. For patients at low risk (minimal or absent history of smoking and of other known risk factors), recommend CT Chest at 3-6 months, then consider CT Chest at 18-24 months. For patients at high risk (history of smoking or of other known risk factors), recommend CT Chest at 3-6 months, then CT Chest at 18-24 months. IMPRESSION: 1. Prominent fluid in the stomach and small bowel may reflect a gastroenteritis. 2. Pancreatic head 4.8 cm cyst, new compared to prior exam may reflect a pseudocyst. Stable 3 cm cyst at the junction of the pancreatic head and body. MRI could further evaluate these. 3. Edema about the pancreatic head and descending duodenum, please correlate for a duodenitis and/or pancreatitis. 4. Prostate gland enlarged, please correlate clinically. 5. Small bilateral fat containing inguinal hernias without bowel inflammation. 6. Hepatic steatosis. Laboratory Results WBC 15.65 10^3/uL (3.29-11.43) H 05/29/24 19:19 RBC 4.55 10^6/uL (3.85-5.65) 05/29/24 19:19 Hgb 15.20 g/dL (11.27-16.99) 05/29/24 19:19 Hct 44.2 % (37-53) 05/29/24 19:19 MCV 97.1 fl (82-101) 05/29/24 19:19 MCH 33.4 pg (27-33) H 05/29/24 19:19 MCHC 34.4 g/dL (30-55) 05/29/24 19:19 RDW 13.4 % (12.1-15.1) 05/29/24 19:19 Plt Count 418 10^3/cmm (157-399) H 05/29/24 19:19 MPV 8.8 fL (7.4-10.4) 05/29/24 19:19 Neut % (Auto) 66.8 % 05/29/24 19:19 Lymph % (Auto) 22.8 % 05/29/24 19:19 Stevens % (Auto) 9.2 % 05/29/24 19:19 Eos % (Auto) 0.4 % 05/29/24 19:19 Baso % (Auto) 0.4 % 05/29/24 19:19 Neut # (Auto) 10.44 10^3/uL (1.8-7.7) H 05/29/24 19:19 Lymph # (Auto) 3.6 10^3/uL (0.8-4.8) 05/29/24 19:19 Stevens # (Auto) 1.4 10^3/uL (0.2-0.9) H 05/29/24 19:19 Eos # (Auto) 0.1 10^3/uL (0.0-0.8) 05/29/24 19:19 Baso # (Auto) 0.1 10^3/uL (0.0-0.1) 05/29/24 19:19 Nucleated RBC % (auto) 0 % 05/29/24 19:19 Nucleated RBCs # 0.0 /100WBC 05/29/24 19:19 Sodium 132 mmol/L (136-145) L 05/29/24 19:19 Potassium 3.5 mmol/L (3.5-5.1) 05/29/24 19:19 Chloride 93 mmol/L (98-107) L 05/29/24 19:19 Carbon Dioxide 22 mmol/L (22-29) 05/29/24 19:19 Anion Gap 20.5 (5-19) H 05/29/24 19:19 BUN 14 mg/dL (6-20) 05/29/24 19:19 Creatinine 0.9 mg/dL (0.7-1.2) 05/29/24 19:19 GFR Calculation 95.0 mL/min (90-130) 05/29/24 19:19 Glucose 114 mg/dL (65-115) 05/29/24 19:19 Calculated Osmolality 275 mOsm/kg (285-295) L 05/29/24 19:19 Calcium 9.2 mg/dL (8.5-10.5) 05/29/24 19:19 Total Bilirubin 0.4 mg/dL (0.15-1.2) 05/29/24 19:19 AST 30 U/L (0-40) 05/29/24 19:19 ALT 48 U/L (0-41) H 05/29/24 19:19 Alkaline Phosphatase 222 U/L (40-130) H 05/29/24 19:19 Total Protein 7.7 g/dL (6.6-8.7) 05/29/24 19:19 Albumin 4.4 g/dL (3.5-5.2) 05/29/24 19:19 Globulin 3.3 g/dL (1.3-4.6) 05/29/24 19:19 Lipase 20 U/L (13-60) 05/29/24 19:19 Ethyl Alcohol 13 mg/dL (0-10) H 05/29/24 19:19 All radiology interpretation(s) finalized by discharge Discharge Plan Discharge Patient Disposition: Home Clinical Impression: Duodenitis Chronic pancreatitis Qualifiers: Pancreatitis type: unspecified pancreatitis type Qualified Code(s): K86.1 - Other chronic pancreatitis Condition: Stable Prescriptions: New metoclopramide HCl 10 mg tablet 10 mg PO QID 7 Days Qty: 28 0RF sucralfate [Carafate] 1 gram tablet 1 g PO TID 28 Days Qty: 84 0RF No Action aspirin [Children's Aspirin] 81 mg tablet,chewable 81 mg PO DAILY atomoxetine 60 mg capsule 60 mg PO DAILY Qty: 30 1RF sertraline [Zoloft] 100 mg tablet 150 mg PO DAILY Qty: 45 1RF buspirone 15 mg tablet 15 mg PO BID Qty: 60 1RF mirtazapine [Remeron] 30 mg tablet 30 mg PO .HS Qty: 30 1RF Creon 12,000-38,000 -60,000 unit capsule,delayed release(DR/EC) 1 cap PO TID Rx Instructions: administer with meals and/or snacks pregabalin [Lyrica] 25 mg capsule 25 mg PO DAILY varenicline [Chantix Continuing Month Box] 1 mg tablet 1 mg PO BID Qty: 56 0RF levocetirizine 5 mg tablet 5 mg PO DAILY lisinopril 20 mg tablet 20 mg PO DAILY Hold Instructions: Resume on 02/03/24. magnesium 250 mg tablet 250 mg PO .QOD folic acid 1 mg Tablet 1 mg PO DAILY Qty: 90 0RF thiamine mononitrate (vit B1) [Vitamin B-1 (mononitrate)] 100 mg Tablet 100 mg PO DAILY Qty: 90 0RF multivitamin with folic acid [Thera] 400 mcg Tablet 1 tab PO DAILY Qty: 90 0RF potassium citrate 99 mg Capsule 99 mg PO DAILY amlodipine 5 mg tablet 10 mg PO DAILY Qty: 90 0RF Protonix 40 mg tablet,delayed release (DR/EC) 40 mg PO DAILY Qty: 10 0RF Discharge Orders: Discharge ED (Routine); Ordered 05/29/24 Ordered By: Finn Riley Referrals: Mahamed Sales MD [Primary Care Provider] - Discharge Diet: Usual diet Discharge Activity: Increase activity as tolerated Patient Instructions: Duodenitis (ED) Activity Restrictions/Additional Instructions: You need to follow-up with your pancreatic specialist for further evaluation of the duodenitis. He may need to arrange for you to have a EGD for further evaluation through endoscopy and biopsy of the area in question on the CT scan. Take the metoclopramide 10 mg 1530 minutes before each meal and at bedtime. Use the Carafate 3 times a day after each meal. Drink plenty of water and fluids. Continue with your Protonix as directed. Return to ED for worsening symptoms such as fever greater than 101, inability to hold fluids down, or excruciating pain. Coding Level of Care Code ED Boat Mechanic for Chg Fwd Documented by User: Demetrio King DO 05/30/24 02:16 HPI - Nausea/Vomiting/Diarrhea 2 General: Chief complaint: Nausea/Vomiting/Diarrhea Stated complaint: N/V Time Seen by Provider: 05/29/24 20:15 Related Data Home Medications Medication Instructions Recorded Confirmed aspirin 81 mg chewable tablet 81 mg PO DAILY 06/22/23 05/09/24 (Children's Aspirin) potassium citrate 99 mg capsule 99 mg PO DAILY 10/06/23 05/09/24 levocetirizine 5 mg tablet 5 mg PO DAILY 10/31/23 05/09/24 lisinopril 20 mg tablet 20 mg PO DAILY 05/22/24 10/07/24 magnesium 250 mg tablet 250 mg PO .QOD 12/23/23 05/09/24 yfqspt-[id number]-piadrsw 1 cap PO TID 01/18/24 05/09/24 12,000-38,000-60,000 unit capsule,delayed rel (Creon) pregabalin 25 mg capsule (Lyrica) 25 mg PO DAILY 03/03/24 05/09/24 Previous Rx's Medication Instructions Recorded folic acid 1 mg tablet 1 mg PO DAILY #90 tabs 03/03/23 multivitamin with folic acid 400 1 tab PO DAILY #90 tabs 03/03/23 mcg tablet (Thera) thiamine mononitrate (vit B1) 100 100 mg PO DAILY #90 tabs 03/03/23 mg tablet (Vitamin B-1 (mononitrate)) amlodipine 5 mg tablet 10 mg (2 x 5 mg) PO DAILY #90 tabs 01/27/24 pantoprazole 40 mg tablet,delayed 40 mg PO DAILY #10 tabs 01/27/24 release (Protonix) atomoxetine 60 mg capsule 60 mg PO DAILY #30 caps 05/09/24 buspirone 15 mg tablet 15 mg PO BID #60 tabs 05/09/24 mirtazapine 30 mg tablet (Remeron) 30 mg PO .HS #30 tabs 05/09/24 sertraline 100 mg tablet (Zoloft) 150 mg (1.5 x 100 mg) PO DAILY #45 05/09/24 tabs varenicline 1 mg tablet (Chantix 1 mg PO BID #56 tabs 05/27/24 Continuing Month Box) metoclopramide HCl 10 mg tablet 10 mg PO QID 7 days #28 tabs 05/29/24 sucralfate 1 gram tablet (Carafate) 1 g PO TID 4 weeks #84 tabs 05/29/24 Allergies Allergy/AdvReac Type Severity Reaction Status Date / Time piperacillin [From Zosyn] Allergy ADR-Swelling Verified 05/09/24 15:30 of the Eye tazobactam [From Zosyn] Allergy ADR-Swelling Verified 05/09/24 15:30 of the Eye [facility] ED 2 PFSH: Medical History Generalized anxiety disorder Cannabis use disorder Pseudocyst, pancreas Abdominal pain Acute pancreatitis Drug allergy Acute chest wall pain Acute pancreatitis History of ADHD Psychiatric care Tobacco use Hypomagnesemia Hepatomegaly Transaminitis Alcohol intoxication Alcoholism Esophagitis Alcohol intoxication Acute pancreatitis Pseudocyst of pancreas Polysubstance abuse History of suicide attempt C7 cervical fracture C2 cervical fracture L4 vertebral fracture Alcohol abuse PTSD (post-traumatic stress disorder) Elevated transaminase level Pancreatitis, alcoholic, acute Surgical History History of appendectomy History of splenectomy Family History Other Diabetes Social History Smoking and tobacco/nicotine status: current every day tobacco/nicotine user Alcohol intake: current Alcohol intake frequency: 3 or more drinks per day Alcohol type: hard liquor Substance/Drug Use: current Substance/Drug use frequency: daily Course 2 Vital Signs: Vital signs: Vital Signs Temperature 97.5 F L 05/29/24 18:55 Pulse Rate 90 05/30/24 00:09 Respiratory Rate 12 05/30/24 00:09 Blood Pressure 117/79 05/30/24 00:09 Pulse Oximetry 97 05/30/24 00:09 Oxygen Delivery Me thod Room Air 05/30/24 00:01 MDM - Nausea/Vomiting/Diarrhea Medical Decision Making 38-year-old male patient comes in today with nausea and vomiting x 3 days and some mild abdominal discomfort. Patient also reports a change in his stool being darker than normal. Abdomen slightly distended but bowel sounds are present. Vital signs are normal. Respirations are even lungs are decreased in the bases. Differential diagnosis includes not limited to dehydration, pancreatitis, gastroenteritis, bowel obstruction. CBC noted some mild elevation in white count of 15,000. CMP noted at [address] of the abdomen pelvis noted some distal esophagitis and some duodenitis. Patient was given 2 L of IV fluids for fluid balance correction. Patient was given 80 of pantoprazole and 10 mg of metoclopramide and 12-1/2 mg of diphenhydramine. Patient then was also given half a milligram of hydromorphone for his pain. Patient was instructed to follow-up with his pancreatic doctor for possible evaluation of the duodenitis and the distal esophagitis. Patient was also written a prescription for some Reglan and some Carafate to further treat his duodenitis and distal esophagitis. Patient reported understanding of care plan and need for follow-up. This patient was originally seen by COLBY John.? I agree with his history, evaluation, and treatment. Lab Data 05/29/24 19:19 05/29/24 19:19 Radiology Impressions Chest/Abdomen/Pelvis CT 05/29/24 21:07 IMPRESSION: 1. Distal esophageal wall thickening, please correlate for esophagitis. 2. Right lower lobe atelectasis. 3. Right upper lobe 6 mm nodule along with a right lower lobe superior segment 5.3 mm nodule, similar to prior exam. For patients at low risk (minimal or absent history of smoking and of other known risk factors), recommend CT Chest at 3-6 months, then consider CT Chest at 18-24 months. For patients at high risk (history of smoking or of other known risk factors), recommend CT Chest at 3-6 months, then CT Chest at 18-24 months. IMPRESSION: 1. Prominent fluid in the stomach and small bowel may reflect a gastroenteritis. 2. Pancreatic head 4.8 cm cyst, new compared to prior exam may reflect a pseudocyst. Stable 3 cm cyst at the junction of the pancreatic head and body. MRI could further evaluate these. 3. Edema about the pancreatic head and descending duodenum, please correlate for a duodenitis and/or pancreatitis. 4. Prostate gland enlarged, please correlate clinically. 5. Small bilateral fat containing inguinal hernias without bowel inflammation. 6. Hepatic steatosis. Laboratory Results WBC 15.65 10^3/uL (3.29-11.43) H 05/29/24 19:19 RBC 4.55 10^6/uL (3.85-5.65) 05/29/24 19:19 Hgb 15.20 g/dL (11.27-16.99) 05/29/24 19:19 Hct 44.2 % (37-53) 05/29/24 19:19 MCV 97.1 fl (82-101) 05/29/24 19:19 MCH 33.4 pg (27-33) H 05/29/24 19:19 MCHC 34.4 g/dL (30-55) 05/29/24 19:19 RDW 13.4 % (12.1-15.1) 05/29/24 19:19 Plt Count 418 10^3/cmm (157-399) H 05/29/24 19:19 MPV 8.8 fL (7.4-10.4) 05/29/24 19:19 Neut % (Auto) 66.8 % 05/29/24 19:19 Lymph % (Auto) 22.8 % 05/29/24 19:19 Stevens % (Auto) 9.2 % 05/29/24 19:19 Eos % (Auto) 0.4 % 05/29/24 19:19 Baso % (Auto) 0.4 % 05/29/24 19:19 Neut # (Auto) 10.44 10^3/uL (1.8-7.7) H 05/29/24 19:19 Lymph # (Auto) 3.6 10^3/uL (0.8-4.8) 05/29/24 19:19 Stevens # (Auto) 1.4 10^3/uL (0.2-0.9) H 05/29/24 19:19 Eos # (Auto) 0.1 10^3/uL (0.0-0.8) 05/29/24 19:19 Baso # (Auto) 0.1 10^3/uL (0.0-0.1) 05/29/24 19:19 Nucleated RBC % (auto) 0 % 05/29/24 19:19 Nucleated RBCs # 0.0 /100WBC 05/29/24 19:19 Sodium 132 mmol/L (136-145) L 05/29/24 19:19 Potassium 3.5 mmol/L (3.5-5.1) 05/29/24 19:19 Chloride 93 mmol/L (98-107) L 05/29/24 19:19 Carbon Dioxide 22 mmol/L (22-29) 05/29/24 19:19 Anion Gap 20.5 (5-19) H 05/29/24 19:19 BUN 14 mg/dL (6-20) 05/29/24 19:19 Creatinine 0.9 mg/dL (0.7-1.2) 05/29/24 19:19 GFR Calculation 95.0 mL/min (90-130) 05/29/24 19:19 Glucose 114 mg/dL (65-115) 05/29/24 19:19 Calculated Osmolality 275 mOsm/kg (285-295) L 05/29/24 19:19 Calcium 9.2 mg/dL (8.5-10.5) 05/29/24 19:19 Total Bilirubin 0.4 mg/dL (0.15-1.2) 05/29/24 19:19 AST 30 U/L (0-40) 05/29/24 19:19 ALT 48 U/L (0-41) H 05/29/24 19:19 Alkaline Phosphatase 222 U/L (40-130) H 05/29/24 19:19 Total Protein 7.7 g/dL (6.6-8.7) 05/29/24 19:19 Albumin 4.4 g/dL (3.5-5.2) 05/29/24 19:19 Globulin 3.3 g/dL (1.3-4.6) 05/29/24 19:19 Lipase 20 U/L (13-60) 05/29/24 19:19 Ethyl Alcohol 13 mg/dL (0-10) H 05/29/24 19:19 Discharge Plan Discharge Patient Disposition: Home Clinical Impression: Duodenitis Chronic pancreatitis Qualifiers: Pancreatitis type: unspecified pancreatitis type Qualified Code(s): K86.1 - Other chronic pancreatitis Condition: Stable Prescriptions: New metoclopramide HCl 10 mg tablet 10 mg PO QID 7 Days Qty: 28 0RF sucralfate [Carafate] 1 gram tablet 1 g PO TID 28 Days Qty: 84 0RF No Action aspirin [Children's Aspirin] 81 mg tablet,chewable 81 mg PO DAILY atomoxetine 60 mg capsule 60 mg PO DAILY Qty: 30 1RF sertraline [Zoloft] 100 mg tablet 150 mg PO DAILY Qty: 45 1RF buspirone 15 mg tablet 15 mg PO BID Qty: 60 1RF mirtazapine [Remeron] 30 mg tablet 30 mg PO .HS Qty: 30 1RF Creon 12,000-38,000 -60,000 unit capsule,delayed release(DR/EC) 1 cap PO TID Rx Instructions: administer with meals and/or snacks pregabalin [Lyrica] 25 mg capsule 25 mg PO DAILY varenicline [Chantix Continuing Month Box] 1 mg tablet 1 mg PO BID Qty: 56 0RF levocetirizine 5 mg tablet 5 mg PO DAILY lisinopril 20 mg tablet 20 mg PO DAILY Hold Instructions: Resume on 02/03/24. magnesium 250 mg tablet 250 mg PO .QOD folic acid 1 mg Tablet 1 mg PO DAILY Qty: 90 0RF thiamine mononitrate (vit B1) [Vitamin B-1 (mononitrate)] 100 mg Tablet 100 mg PO DAILY Qty: 90 0RF multivitamin with folic acid [Thera] 400 mcg Tablet 1 tab PO DAILY Qty: 90 0RF potassium citrate 99 mg Capsule 99 mg PO DAILY amlodipine 5 mg tablet 10 mg PO DAILY Qty: 90 0RF Protonix 40 mg tablet,delayed release (DR/EC) 40 mg PO DAILY Qty: 10 0RF Discharge Orders: Discharge ED (Routine); Ordered 05/29/24 Ordered By: Finn Riley Referrals: Mahamed Sales MD [Primary Care Provider] - Discharge Diet: Usual diet Discharge Activity: Increase activity as tolerated Patient Instructions: Duodenitis (ED) Activity Restrictions/Additional Instructions: You need to follow-up with your pancreatic specialist for further evaluation of the duodenitis. He may need to arrange for you to have a EGD for further evaluation through endoscopy and biopsy of the area in question on the CT scan. Take the metoclopramide 10 mg 1530 minutes before each meal and at bedtime. Use the Carafate 3 times a day after each meal. Drink plenty of water and fluids. Continue with your Protonix as directed. Return to ED for worsening symptoms such as fever greater than 101, inability to hold fluids down, or excruciating pain. Coding Level of Care Code ED Boat Mechanic for Marko Avery
--- NOTE | 2024-05-29 21:07 | CTR_ITS ---
PROCEDURE INFORMATION: Exam: CT Chest With Contrast; Diagnostic Exam date and time: 05/29/2024 9:58 PM Age: 38 years old Clinical indication: Nausea and vomiting; Abdominal pain; Generalized; Shortness of breath; Other: N/a; Prior surgery; Surgery date: 6+ months; Surgery type: Clavicle fixation. Splenectomy. Appy. Patient HX: C/O SOB with n/v and abd pain. History of multiple pancreatic pseudocysts. ; Additional info: Short of breath, n/v TECHNIQUE: Imaging protocol: Diagnostic computed tomography of the chest with contrast. Radiation optimization: All CT scans at this facility use at least one of these dose optimization techniques: automated exposure control; mA and/or kV adjustment per patient size (includes targeted exams where dose is matched to clinical indication); or iterative reconstruction. Contrast material: OMNI 350; Contrast volume: 100 ml; Contrast route: INTRAVENOUS (IV); COMPARISON: CT angio chest w abd pel w con 01/03/2024 3:47 AM RADIATION DOSE METRICS: Total DLP (mGy-cm): 844.11 FINDINGS: Lungs: Right lower lobe atelectasis. Right upper lobe 6 mm nodule along with a right lower lobe superior segment 5.3 mm nodule, similar to prior exam. Pleural spaces: Unremarkable. No pneumothorax. No pleural effusion. Heart: Unremarkable. No cardiomegaly. No pericardial effusion. Esophagus: Distal esophageal wall thickening, please correlate for esophagitis. Lymph nodes: Unremarkable. No enlarged lymph nodes. Vasculature: Unremarkable. No aortic aneurysm. Bones/joints: Unremarkable. No acute fracture. Soft tissues: Unremarkable. (Reference: Yony) REFERENCES: Chintanhobernard Mantilla et al. Guidelines for Management of Incidental Pulmonary Nodules Detected on CT Images: From the Fleischner Society 2017. Radiology. 2017;284(1):228-243. PROCEDURE INFORMATION: Exam: CT Abdomen And Pelvis With Contrast Exam date and time: 05/29/2024 9:58 PM Age: 38 years old Clinical indication: Nausea and vomiting; Abdominal pain; Generalized; Shortness of breath; Other: N/a; Prior surgery; Surgery date: 6+ months; Surgery type: Clavicle fixation. Splenectomy. Appy. Patient HX: C/O SOB with n/v and abd pain. History of multiple pancreatic pseudocysts. ; Additional info: Short of breath, n/v TECHNIQUE: Imaging protocol: Computed tomography of the abdomen and pelvis with contrast. Radiation optimization: All CT scans at this facility use at least one of these dose optimization techniques: automated exposure control; mA and/or kV adjustment per patient size (includes targeted exams where dose is matched to clinical indication); or iterative reconstruction. Contrast material: OMNI 350; Contrast volume: 100 ml; Contrast route: INTRAVENOUS (IV); COMPARISON: CT kidney stone [id number] 01/25/2024 3:54 AM RADIATION DOSE METRICS: Total DLP (mGy-cm): 844.11 FINDINGS: Liver: Hepatic steatosis. Gallbladder and biliary ducts: Normal. No calcified stones. No ductal dilation. Pancreas: Pancreatic head 4.8 cm cyst, new compared to prior exam may reflect a pseudocyst. Stable 3 cm cyst at the junction of the pancreatic head and body. Edema about the pancreatic head and descending duodenum, please correlate for a duodenitis and/or pancreatitis. Spleen: Normal. No splenomegaly. Adrenal glands: Normal. No mass. Kidneys and ureters: Normal. No hydronephrosis. Stomach and bowel: Prominent fluid in the stomach and small bowel may reflect a gastroenteritis. Appendix: No evidence of appendicitis. Intraperitoneal space: Unremarkable. No free air. No significant fluid collection. Vasculature: Unremarkable. No abdominal aortic aneurysm. Lymph nodes: Unremarkable. No enlarged lymph nodes. Urinary bladder: Unremarkable as visualized. Reproductive: Prostate gland enlarged, please correlate clinically. Bones/joints: Unremarkable. No acute fracture. Soft tissues: Small bilateral fat containing inguinal hernias without bowel inflammation. CT/CT chest abdpel w/*[id number] IMPRESSION: 1. Distal esophageal wall thickening, please correlate for esophagitis. 2. Right lower lobe atelectasis. 3. Right upper lobe 6 mm nodule along with a right lower lobe superior segment 5.3 mm nodule, similar to prior exam. For patients at low risk (minimal or absent history of smoking and of other known risk factors), recommend CT Chest at 3-6 months, then consider CT Chest at 18-24 months. For patients at high risk (history of smoking or of other known risk factors), recommend CT Chest at 3-6 months, then CT Chest at 18-24 months. IMPRESSION: 1. Prominent fluid in the stomach and small bowel may reflect a gastroenteritis. 2. Pancreatic head 4.8 cm cyst, new compared to prior exam may reflect a pseudocyst. Stable 3 cm cyst at the junction of the pancreatic head and body. MRI could further evaluate these. 3. Edema about the pancreatic head and descending duodenum, please correlate for a duodenitis and/or pancreatitis. 4. Prostate gland enlarged, please correlate clinically. 5. Small bilateral fat containing inguinal hernias without bowel inflammation. 6. Hepatic steatosis.
[2024-05-29] MEDS: sodium chloride 0.9% 1,000 ML 999 ML IV ×2 (21:52→22:55)
[2024-05-29] MEDS: diphenhydrAMINE 50 mg/mL SDV 1mL 12.5 MG IVP (21:57)
[2024-05-29] MEDS: metoclopramide 5 mg/mL SDV 2 mL 10 MG IVP (21:58)
[2024-05-29] MEDS: iohexol 350 mg/mL 500 mL Btl (per mL) IV (22:00)
[2024-05-29 22:18] VITALS: BP 142/93; PULSE 88; RESP 18; O2SAT 99
[2024-05-29 22:30] VITALS: BP 132/68; PULSE 85; O2SAT 97
[2024-05-29 23:00] VITALS: BP 129/73; PULSE 86; O2SAT 96
[2024-05-29] MEDS: pantoprazole 40 mg SDV 80 MG IVP (23:16)
[2024-05-29 23:24] VITALS: RESP 18; O2SAT 100
[2024-05-29] MEDS: HYDROmorphone 1 mg/mL INJ 1 mL 0.5 MG IVP (23:24)
[2024-05-30 00:01] VITALS: BP 117/79; RESP 12; O2SAT 95
[2024-05-30 00:09] VITALS: BP 117/79; PULSE 90; RESP 12; O2SAT 97
== END 2024-05-30 00:10 | disposition home or self-care (01) ==
PROVIDERS: Emergency Medicine; Emergency Provider Nurse Practitioner Family; PCP Family Medicine
DX: K86.1 Other chronic pancreatitis (principal)
CPT/HCPCS: 36415; 71260; 74177; 80053; 80307; 83690; 85025; 96361; 96374; 96375; 99285; J1171; J1200; J2470; J2765; J7030

== ENCOUNTER 2024-06-09 22:19 | Emergency (ER) | payer MEDICAID, SELFPAY ==
--- NOTE | 2024-06-09 22:23 | ECG_ITS ---
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1985 Requested By: Christopher Hutton Order Number: [id number] Boni MD: JACKSON ESPARZA Measurements Intervals [place] Rate: 111 P: 48 MD: 128 QRS: 57 QRSD: 88 T: 60 QT: 322 QTc: 438 Interpretive Statements SINUS TACHYCARDIA POSSIBLE LEFT ATRIAL ENLARGEMENT [-0.1mV P-WAVE IN V1/V2] MINIMAL ST DEPRESSION [0.025+ mV ST DEPRESSION] ABNORMAL RHYTHM ECG Compared to ECG 04/21/2024 23:25:25 ST (T wave) deviation now present T-wave abnormality no longer present Electronically Signed On 06-10-2024 00:30:40 TRACK REPAIRER HELPER by JACKSON ESPARZA [email or web address]
[2024-06-09 22:33] LABS: Basophils # 0.1 10^3/uL (0.0-0.1); Basophils % 0.4 %; Eosinophils # 0.1 10^3/uL (0.0-0.8); Eosinophils % 0.5 %; Lymphocytes # 4.8 10^3/uL (0.8-4.8); Lymphocytes % 32.9 %; Mean Corpuscular HGB Conc 34.2 g/dL (30-55); Mean Corpuscular Hemoglobin 32.5 pg (27-33); Mean Corpuscular Volume 95.1 fl (82-101); Mean Platelet Volume 9.1 fL (7.4-10.4); Monocytes # 1.3 10^3/uL (0.2-0.9); Monocytes % 8.6 %; Neutrophils # 8.38 10^3/uL (1.8-7.7); Nucleated Red Blood Cells % 0 %; Platelet Count 568 10^3/cmm (157-399); Red Blood Count 5.26 10^6/uL (3.85-5.65); Red Cell Distribution Width 15.1 % (12.1-15.1); White Blood Count 14.71 10^3/uL (3.29-11.43)
--- NOTE | 2024-06-09 22:39 | ED_ITS ---
HPI - Abdominal Pain 2 General: Chief Complaint: Abdominal Pain Stated Complaint: epigastric pain x 1 day Time Seen by Provider: 06/09/24 22:29 History of Present Illness: Patient presents with epigastric pain x 1 day. Was noted patient does not drink alcohol today. Patient has a history of chronic pancreatitis but he said this feels just a little bit different. Patient denies any vomiting diarrhea constipation fevers chills etc. Does have some nausea. Related Data Home Medications Medication Instructions Recorded Confirmed aspirin 81 mg chewable tablet 81 mg PO DAILY 06/22/23 05/09/24 (Children's Aspirin) potassium citrate 99 mg capsule 99 mg PO DAILY 10/06/23 05/09/24 levocetirizine 5 mg tablet 5 mg PO DAILY 10/31/23 05/09/24 lisinopril 20 mg tablet 20 mg PO DAILY 12/23/23 05/09/24 magnesium 250 mg tablet 250 mg PO .QOD 12/23/23 05/09/24 nyeohy-lguhnoxz-mvvvaap 1 cap PO TID 01/18/24 05/09/24 12,000-38,000-60,000 unit capsule,delayed rel (Creon) pregabalin 25 mg capsule (Lyrica) 25 mg PO DAILY 03/03/24 05/09/24 Previous Rx's Medication Instructions Recorded folic acid 1 mg tablet 1 mg PO DAILY #90 tabs 03/03/23 multivitamin with folic acid 400 1 tab PO DAILY #90 tabs 03/03/23 mcg tablet (Thera) thiamine mononitrate (vit B1) 100 100 mg PO DAILY #90 tabs 03/03/23 mg tablet (Vitamin B-1 (mononitrate)) amlodipine 5 mg tablet 10 mg (2 x 5 mg) PO DAILY #90 tabs 01/27/24 pantoprazole 40 mg tablet,delayed 40 mg PO DAILY #10 tabs 01/27/24 release (Protonix) atomoxetine 60 mg capsule 60 mg PO DAILY #30 caps 05/09/24 buspirone 15 mg tablet 15 mg PO BID #60 tabs 05/09/24 mirtazapine 30 mg tablet (Remeron) 30 mg PO .HS #30 tabs 05/09/24 sertraline 100 mg tablet (Zoloft) 150 mg (1.5 x 100 mg) PO DAILY #45 05/09/24 tabs varenicline 1 mg tablet (Chantix 1 mg PO BID #56 tabs 05/27/24 Continuing Month Box) sucralfate 1 gram tablet (Carafate) 1 g PO TID 4 weeks #84 tabs 05/29/24 Allergies Allergy/AdvReac Type Severity Reaction Status Date / Time piperacillin [From Zosyn] Allergy ADR-Swelling Verified 05/09/24 15:30 of the Eye tazobactam [From Zosyn] Allergy ADR-Swelling Verified 05/09/24 15:30 of the Eye Review of Systems 2 General: Reports: 10 or more systems reviewed and unremarkable except in HPI and below PFSH ED 2 PFSH: Medical History Generalized anxiety disorder Cannabis use disorder Pseudocyst, pancreas Abdominal pain Acute pancreatitis Drug allergy Acute chest wall pain Acute pancreatitis History of ADHD Psychiatric care Tobacco use Hypomagnesemia Hepatomegaly Transaminitis Alcohol intoxication Alcoholism Esophagitis Alcohol intoxication Acute pancreatitis Pseudocyst of pancreas Polysubstance abuse History of suicide attempt C7 cervical fracture C2 cervical fracture L4 vertebral fracture Alcohol abuse PTSD (post-traumatic stress disorder) Elevated transaminase level Pancreatitis, alcoholic, acute Surgical History History of appendectomy History of splenectomy Family History Other Diabetes Social History Smoking and tobacco/nicotine status: current every day tobacco/nicotine user Alcohol intake: current Alcohol intake frequency: 3 or more drinks per day Alcohol type: hard liquor Substance/Drug Use: current Substance/Drug use frequency: daily Physical Exam 2 Const: COMMON NORMALS: no acute distress, average body habitus, patient oriented x3, no limitations, healthy appearing, alert and well nourished HENMT: COMMON NORMALS: normocephalic, atraumatic, hearing grossly normal bilaterally, external ears normal, Normal external nose present and moist oral mucous membranes HEAD & SCALP: normocephalic and atraumatic NOSE: Normal external nose present EXTERNAL EAR: Yes external ears normal Neck/C-Spine: COMMON NORMALS: full ROM, no lymphadenopathy, supple, no meningeal signs, no JVD and Thyroid normal THYROID: Thyroid normal Chest: COMMONS NORMALS: normal inspection of the chest and normal palpation of entire chest wall Resp: COMMON NORMALS: normal respiratory effort, No retractions, No use of accessory muscles and clear to auscultation bilaterally AUSCULTATION: clear to auscultation bilaterally Cardio: COMMON NORMALS: no JVD, regular rate, regular rhythm, S1 normal heart sound present, S2 normal heart sound present, No gallops present (Cardio), No clicks present (Cardio), No murmurs present (Cardio) and No rub (Cardio) R ATE: regular rate RHYTHM: regular rhythm HEART SOUNDS: S1 normal heart sound present and S2 normal heart sound present GI: COMMON NORMALS: Normal to inspection, nondistended, normoactive bowel sounds present, Soft to palpation, non-tender, No hepatosplenomegaly present and no masses PALPATION: Yes Soft to palpation and Yes No hepatosplenomegaly present Neuro: COMMON NORMALS: patient oriented x3 SENSORIUM/ORIENTATION: Yes alert MENINGEAL SIGNS: Yes no meningeal signs Course 2 Vital Signs: Vital signs: Vital Signs Temperature 98.4 F 06/09/24 22:54 Pulse Rate 103 H 06/09/24 22:54 Respiratory Rate 16 06/09/24 22:54 Blood Pressure 124/82 06/09/24 22:54 Pulse Oximetry 97 06/09/24 22:54 Oxygen Delivery Me thod Room Air 06/09/24 22:54 MDM - Abdominal Pain Medical Decision Making Lab work was obtained which revealed patient to 78, bilirubin 0.5, AST of 53, ALT of 120, alk phos of 558, otherwise unremarkable. CT was not obtained because 1 was obtained approximately 2 days ago. Patient was given Toradol and promethazine and upon reexamination was sleeping soundly. Patient be discharged home Medical Records I reviewed the patient's medical records. Lab Data I reviewed the patient's lab results. 06/09/24 22:23 06/09/24 22:23 Labs/Radiology: Laboratory Results WBC 14.71 10^3/uL (3.29-11.43) H 06/09/24 22:23 RBC 5.26 10^6/uL (3.85-5.65) 06/09/24 22:23 Hgb 17.10 g/dL (11.27-16.99) H 06/09/24 22:23 Hct 50.0 % (37-53) 06/09/24 22:23 MCV 95.1 fl (82-101) 06/09/24 22:23 MCH 32.5 pg (27-33) 06/09/24 22:23 MCHC 34.2 g/dL (30-55) 06/09/24 22:23 RDW 15.1 % (12.1-15.1) 06/09/24 22:23 Plt Count 568 10^3/cmm (157-399) H 06/09/24 22:23 MPV 9.1 fL (7.4-10.4) 06/09/24 22:23 Neut % (Auto) 57.0 % 06/09/24 22:23 Lymph % (Auto) 32.9 % 06/09/24 22:23 Alexander % (Auto) 8.6 % 06/09/24 22:23 Eos % (Auto) 0.5 % 06/09/24 22:23 Baso % (Auto) 0.4 % 06/09/24 22:23 Neut # (Auto) 8.38 10^3/uL (1.8-7.7) H 06/09/24 22:23 Lymph # (Auto) 4.8 10^3/uL (0.8-4.8) 06/09/24 22:23 Alexander # (Auto) 1.3 10^3/uL (0.2-0.9) H 06/09/24 22:23 Eos # (Auto) 0.1 10^3/uL (0.0-0.8) 06/09/24 22:23 Baso # (Auto) 0.1 10^3/uL (0.0-0.1) 06/09/24 22:23 Nucleated RBC % (auto) 0 % 06/09/24 22: Nucleated RBCs # 0.0 /100WBC 06/09/24 22:23 Sodium 138 mmol/L (136-145) 06/09/24 22:23 Potassium 4.4 mmol/L (3.5-5.1) 06/09/24 22:23 Chloride 97 mmol/L (98-107) L 06/09/24 22:23 Carbon Dioxide 27 mmol/L (22-29) 06/09/24 22:23 Anion Gap 18.4 (5-19) 06/09/24 22:23 BUN 6 mg/dL (6-20) 06/09/24 22:23 Creatinine 0.9 mg/dL (0.7-1.2) 06/09/24 22:23 GFR Calculation 95.0 mL/min (90-130) 06/09/24 22:23 Glucose 92 mg/dL (65-115) 06/09/24 22:23 Calculated Osmolality 283 mOsm/kg (285-295) L 06/09/24 22:23 Calcium 9.6 mg/dL (8.5-10.5) 06/09/24 22:23 Total Bilirubin 0.5 mg/dL (0.15-1.2) 06/09/24 22:23 AST 53 U/L (0-40) H 06/09/24 22:23 ALT 120 U/L (0-41) H 06/09/24 22:23 Alkaline Phosphatase 558 U/L (40-130) H 06/09/24 22:23 Total Protein 8.5 g/dL (6.6-8.7) 06/09/24 22:23 Albumin 4.8 g/dL (3.5-5.2) 06/09/24 22:23 Globulin 3.7 g/dL (1.3-4.6) 06/09/24 22:23 Lipase 278 U/L (13-60) H 06/09/24 22:23 All radiology interpretation(s) finalized by discharge Discharge Plan Discharge Patient Disposition: Home Clinical Impression: Chronic pancreatitis Qualifiers: Pancreatitis type: unspecified pancreatitis type Qualified Code(s): K86.1 - Other chronic pancreatitis Condition: Stable Prescriptions: No Action aspirin [Children's Aspirin] 81 mg tablet,chewable 81 mg PO DAILY atomoxetine 60 mg capsule 60 mg PO DAILY Qty: 30 1RF sertraline [Zoloft] 100 mg tablet 150 mg PO DAILY Qty: 45 1RF buspirone 15 mg tablet 15 mg PO BID Qty: 60 1RF mirtazapine [Remeron] 30 mg tablet 30 mg PO .HS Qty: 30 1RF Creon 12,000-38,000 -60,000 unit capsule,delayed release(DR/EC) 1 cap PO TID Rx Instructions: administer with meals and/or snacks pregabalin [Lyrica] 25 mg capsule 25 mg PO DAILY varenicline [Chantix Continuing Month Box] 1 mg tablet 1 mg PO BID Qty: 56 0RF levocetirizine 5 mg tablet 5 mg PO DAILY lisinopril 20 mg tablet 20 mg PO DAILY Hold Instructions: Resume on 02/03/24. magnesium 250 mg tablet 250 mg PO .QOD sucralfate [Carafate] 1 gram tablet 1 g PO TID 28 Days Qty: 84 0RF folic acid 1 mg Tablet 1 mg PO DAILY Qty: 90 0RF thiamine mononitrate (vit B1) [Vitamin B-1 (mononitrate)] 100 mg Tablet 100 mg PO DAILY Qty: 90 0RF multivitamin with folic acid [Thera] 400 mcg Tablet 1 tab PO DAILY Qty: 90 0RF potassium citrate 99 mg Capsule 99 mg PO DAILY amlodipine 5 mg tablet 10 mg PO DAILY Qty: 90 0RF Protonix 40 mg tablet,delayed release (DR/EC) 40 mg PO DAILY Qty: 10 0RF Discharge Orders: Discharge ED (Routine); Ordered 06/09/24 Ordered By: Christopher Hutton Referrals: Mahamed Sales MD [Primary Care Provider] - 1 week Patient Instructions: Pancreatitis (ED) Activity Restrictions/Additional Instructions: Thank you for choosing [facility] for your healthcare needs today. Please realize that you were seen in the emergency department and that we are providing you with an emergency medical screening exam and this may not be a complete and all exclusive of all testing and/or medical workup we may need to determine your element or severity of your illness. It is very important that you follow-up as instructed with your primary care provider or specialist for the additional evaluation and to discuss your medical treatment plan. You may return to the emergency department should you have concerns or if your condition changes or worsens in any way. Coding Level of Care Code ED Supervisor [employer] for Marko Avery
[2024-06-09 22:49] LABS: Alanine Aminotransferase 120 U/L (0-41); Albumin Level 4.8 g/dL (3.5-5.2); Alkaline Phosphatase 558 U/L (40-130); Anion Gap 18.4 (5-19); Aspartate Amino Transferase 53 U/L (0-40); Blood Urea Nitrogen 6 mg/dL (6-20); Calcium 9.6 mg/dL (8.5-10.5); Carbon Dioxide 27 mmol/L (22-29); Chloride 97 mmol/L (98-107); Globulin 3.7 g/dL (1.3-4.6); Glucose 92 mg/dL (65-115); Lipase 278 U/L (13-60); Osmolality Calculated 283 mOsm/kg (285-295); Potassium 4.4 mmol/L (3.5-5.1); Sodium 138 mmol/L (136-145); Total Bilirubin 0.5 mg/dL (0.15-1.2); Total Protein 8.5 g/dL (6.6-8.7)
[2024-06-09 22:51] VITALS: BMI 27.8
[2024-06-09 22:54] VITALS: BP 124/82; PULSE 103; RESP 16; TEMP 36.9; O2SAT 97
[2024-06-09] MEDS: ondansetron 2 mg/ML SDV 2 mL 4 MG IVP (23:05)
[2024-06-09] MEDS: ketorolac 30 mg/mL INJ IVP (23:05)
== END 2024-06-10 00:10 | disposition home or self-care (01) ==
PROVIDERS: Emergency Provider Emergency Medicine; PCP Family Medicine
DX: K86.1 Other chronic pancreatitis (principal); Z79.82 Long term (current) use of aspirin; Z72.0 Tobacco use
CPT/HCPCS: 80053; 83690; 85025; 93005; 96374; 96375; 99284; J1885; J2405

== ENCOUNTER → 2024-09-15 14:26 | Outpatient (BNVA) | payer OTHER, SELFPAY | PROVIDERS: PCP Family Medicine; Visit Provider Nurse Practitioner | DX: F33.1 Major depressive disorder, recurrent, moderate (principal); F10.90 Alcohol use, unspecified, uncomplicated | CPT/HCPCS: 80061; 83036 ==

== ENCOUNTER 2024-12-13 17:14 | Emergency (ER) | payer MEDICAID, SELFPAY ==
[2024-10-17 10:25] VITALS: BP 134/102; BMI 27.0
[2024-12-13 17:18] VITALS: BP 167/109; PULSE 135; RESP 22; TEMP 36.8; O2SAT 97; BMI 25.7
--- NOTE | 2024-12-13 17:28 | CTR_ITS ---
PROCEDURE INFORMATION: Exam: CT Head Without Contrast Exam date and time: 12/13/2024 5:59 PM Age: 39 years old Clinical indication: Reported seizure activity. TECHNIQUE: Imaging protocol: Computed tomography of the head without contrast. Radiation optimization: All CT scans at this facility use at least one of these dose optimization techniques: automated exposure control; mA and/or kV adjustment per patient size (includes targeted exams where dose is matched to clinical indication); or iterative reconstruction. COMPARISON: No relevant prior studies available. RADIATION DOSE METRICS: Total DLP (mGy-cm): 1046.78 FINDINGS: Brain: Normal. No hemorrhage. Unremarkable white matter. No mass effect. Cerebral ventricles: No ventriculomegaly. Paranasal sinuses: Paranasal sinus mucosal thickening. Mastoid air cells: Visualized mastoid air cells are well aerated. Bones: Unremarkable. No acute fracture. Soft tissues: Unremarkable. CT/CT head wo con* [id number] IMPRESSION: No acute intracranial abnormality. Paranasal sinus mucosal thickening.
--- NOTE | 2024-12-13 17:33 | W.ED.SEIZURE ---
HPI - Seizure General: Chief Complaint: Seizure Stated Complaint: trouble breathing Time Seen by Provider: 12/13/24 17:25 Source: patient Mode of arrival: ambulatory Limitations: no limitations History of Present Illness: HPI Narrative: 39-year-old male who is here after having a seizure he is in the car with his significant other had roughly 30 seconds seizure he is postictal did bite his tongue he started to wake up he is answer my questions he denies any headache he is diaphoretic denies any worse improved factors Associated symptoms: Deny chest pain, chills or fever(s) Related Data Home Medications ?Medication ?Instructions ?Recorded ?Confirmed aspirin 81 mg chewable tablet 81 mg PO DAILY 06/22/23 10/10/24 (Children's Aspirin) potassium citrate 99 mg capsule 99 mg PO DAILY 10/06/23 10/10/24 levocetirizine 5 mg tablet 5 mg PO DAILY 10/31/23 10/10/24 magnesium 250 mg tablet 250 mg PO .QOD 12/23/23 10/10/24 uaklgi-eaxlzdhi-tbbmnkg 1 cap PO TID 01/18/24 10/10/24 12,000-38,000-60,000 unit capsule,delayed rel (Creon) pregabalin 25 mg capsule (Lyrica) 25 mg PO DAILY 03/03/24 10/10/24 lisinopril 20 mg tablet 20 mg PO DAILY 10/10/24 10/10/24 metoclopramide HCl 10 mg tablet 10 mg PO BID 10/10/24 10/10/24 (Reglan) Previous Rx's ?Medication ?Instructions ?Recorded folic acid 1 mg tablet 1 mg PO DAILY #90 tabs 03/03/23 multivitamin with folic acid 400 1 tab PO DAILY #90 tabs 03/03/23 mcg tablet (Thera) thiamine mononitrate (vit B1) 100 100 mg PO DAILY #90 tabs 03/03/23 mg tablet (Vitamin B-1 (mononitrate)) pantoprazole 40 mg tablet,delayed 40 mg PO DAILY #10 tabs 01/27/24 release (Protonix) atomoxetine 60 mg capsule 60 mg PO DAILY #30 caps 10/10/24 mirtazapine 30 mg tablet (Remeron) 30 mg PO .HS #30 tabs 10/10/24 naltrexone 50 mg tablet 50 mg PO DAILY #30 tabs 10/10/24 sertraline 100 mg tablet (Zoloft) 150 mg (1.5 x 100 mg) PO DAILY #45 10/10/24 tabs varenicline tartrate 1 mg tablet 1 mg PO BID #56 tabs 10/12/24 (Chantix Continuing Month Box) acamprosate 333 mg tablet,delayed 666 mg (2 x 333 mg) PO TID #180 11/07/24 release tabs buspirone 15 mg tablet 30 mg (2 x 15 mg) PO BID #60 tabs 12/05/24 Allergies Allergy/AdvReac Type Severity Reaction Status Date / Time piperacillin (From Zosyn) Allergy ADR-Swelling Verified 10/10/24 14:30 of the Eye tazobactam (From Zosyn) Allergy ADR-Swelling Verified 10/10/24 14:30 of the Eye Review of Systems Const: Denies: fever(s), chills, body aches or change in appetite ENMT: Denies: throat pain or dental pain Card: Denies: chest pain Resp: Denies: dyspnea GI: Denies: abdominal pain, nausea, vomiting or diarrhea Musc: Denies: neck pain or back pain Skin/Breast: Denies: rash Neuro: Reports: seizure-like activity; Denies: headache(s) PFSH ED PFSH: Medical History Generalized anxiety disorder Cannabis use disorder Pseudocyst, pancreas Abdominal pain Acute pancreatitis Drug allergy Acute chest wall pain Acute pancreatitis History of ADHD Psychiatric care Tobacco use Hypomagnesemia Hepatomegaly Transaminitis Alcohol intoxication Alcoholism Esophagitis Alcohol intoxication Acute pancreatitis Pseudocyst of pancreas Polysubstance abuse History of suicide attempt C7 cervical fracture C2 cervical fracture L4 vertebral fracture Alcohol abuse PTSD (post-traumatic stress disorder) Elevated transaminase level Pancreatitis, alcoholic, acute Surgical History History of appendectomy History of splenectomy Family History Other Diabetes Social History Smoking and tobacco/nicotine status: current every day tobacco/nicotine user Alcohol intake: current Alcohol intake frequency: 3 or more drinks per day Alcohol type: hard liquor Substance/Drug Use: current Substance/Drug use frequency: daily Adopted: No Caregiver/support person: No Lives independently: No Household members: significant other Marital status: Number of children: 4 Highest education level completed: 12th Grade, No Diploma Current occupational status: unemployed Pets and animals: Yes Leisure activites: other Leisure activities details: None at this time Sexually active: Yes Do you think of yourself as: Straight/Heterosexual Current gender identity: Male Mary Lou/Methodist: Anabaptist Special mary lou needs: No Agree to transfusion: Yes Physical Exam Const: COMMON NORMALS: no acute distress, patient oriented x3 and healthy appearing HENMT: COMMON NORMALS: normocephalic and atraumatic HEAD & SCALP: normocephalic and atraumatic Eye: COMMON NORMALS: conjunctivae normal CONJUNCTIVA: Yes conjunctivae normal Neck/C-Spine: COMMON NORMALS: full ROM and supple Chest: COMMONS NORMALS: normal inspection of the chest Resp: COMMON NORMALS: normal respiratory effort and clear to auscultation bilaterally AUSCULTATION: clear to auscultation bilaterally Cardio: COMMON NORMALS: regular rhythm and No murmurs present (Cardio) RATE: tachycardic RHYTHM: regular rhythm GI: COMMON NORMALS: Normal to inspection, nondistended, normoactive bowel sounds present, Soft to palpation, non-tender and no masses PALPATION: Yes Soft to palpation Extremity: COMMON NORMALS: normal to inspection and full ROM Neuro: COMMON NORMALS: patient oriented x3, moves all extremities and no focal motor deficits Psych: COMMON NORMALS: mental status grossly normal, Normal thought process present and cooperative THOUGHT PROCESS: Normal thought process present Skin: COMMON NORMALS: no rashes or lesions noted and no wounds GENERAL SKIN EXAM: no rashes or lesions noted Course Vital Signs: Vital signs: Vital Signs Temperature 98.2 F 12/13/24 17:18 Pulse Rate 106 H 12/13/24 19:53 Respiratory Rate 16 12/13/24 19:53 Blood Pressure 125/83 12/13/24 19:53 Pulse Oximetry 97 12/13/24 19:53 Oxygen Delivery Me thod Room Air 12/13/24 19:03 MDM - Seizure MDM Narrative Medical decision making narrative: Patient presents after a seizure no known history of seizures imaging here is normal he feels much improved here his heart rates improved as well he stable for discharge we will give him follow-up with neurology he is return if worsening Lab Data 12/13/24 17:49 12/13/24 17:49 Labs: Radiology Impressions Head CT 12/13/24 17:28 IMPRESSION: No acute intracranial abnormality. Paranasal sinus mucosal thickening. Laboratory Results WBC 11.31 10^3/uL (3.29-11.43) 12/13/24 17:49 RBC 4.47 10^6/uL (3.85-5.65) 12/13/24 17:49 Hgb 14.90 g/dL (11.27-16.99) 12/13/24 17:49 Hct 43.4 % (37-53) 12/13/24 17:49 MCV 97.1 fl (82-101) 12/13/24 17:49 MCH 33.3 pg (27-33) H 12/13/24 17:49 MCHC 34.3 g/dL (30-55) 12/13/24 17:49 RDW 14.4 % (12.1-15.1) 12/13/24 17:49 Plt Count 249 10^3/cmm (157-399) 12/13/24 17:49 MPV 9.7 fL (7.4-10.4) 12/13/24 17:49 Neut % (Auto) 45.0 % 12/13/24 17:49 Lymph % (Auto) 41.2 % 12/13/24 17:49 [place] % (Auto) 11.9 % 12/13/24 17:49 Eos % (Auto) 1.0 % 12/13/24 17:49 Baso % (Auto) 0.5 % 12/13/24 17:49 Neut # (Auto) 5.08 10^3/uL (1.8-7.7) 12/13/24 17:49 Lymph # (Auto) 4.7 10^3/uL (0.8-4.8) 12/13/24 17:49 [place] # (Auto) 1.4 10^3/uL (0.2-0.9) H 12/13/24 17:49 Eos # (Auto) 0.1 10^3/uL (0.0-0.8) 12/13/24 17:49 Baso # (Auto) 0.1 10^3/uL (0.0-0.1) 12/13/24 17:49 Nucleated RBC % (auto) 0 % 12/13/24 17:49 Nucleated RBCs # 0.0 /100WBC 12/13/24 17:49 Sodium 132 mmol/L (136-145) L 12/13/24 17:49 Potassium 3.5 mmol/L (3.5-5.1) 12/13/24 17:49 Chloride 88 mmol/L (98-107) L 12/13/24 17:49 Carbon Dioxide 16 mmol/L (22-29) L 12/13/24 17:49 Anion Gap 31.5 (5-19) H 12/13/24 17:49 BUN 7 mg/dL (6-20) 12/13/24 17:49 Creatinine 0.8 mg/dL (0.7-1.2) 12/13/24 17:49 GFR Calculation 108.2 mL/min (90-130) 12/13/24 17:49 Glucose 134 mg/dL (65-115) H 12/13/24 17:49 Calculated Osmolality 274 mOsm/kg (285-295) L 12/13/24 17:49 Calcium 9.9 mg/dL (8.5-10.5) 12/13/24 17:49 Total Bilirubin 0.7 mg/dL (0.15-1.2) 12/13/24 17:49 AST 95 U/L (0-40) H 12/13/24 17:49 ALT 132 U/L (0-41) H 12/13/24 17:49 Alkaline Phosphatase 236 U/L (40-130) H 12/13/24 17:49 Total Protein 7.9 g/dL (6.6-8.7) 12/13/24 17:49 Albumin 4.7 g/dL (3.5-5.2) 12/13/24 17:49 Globulin 3.2 g/dL (1.3-4.6) 12/13/24 17:49 Urine Opiates Screen Positive ng/mL (Negative) H 12/13/24 18:15 Ur Barbiturates Screen Negative ng/mL (Negative) 12/13/24 18:15 Ur Phencyclidine Scrn Negative ng/mL (Negative) 12/13/24 18:15 Ur Amphetamines Screen Negative ng/mL (Negative) 12/13/24 18:15 U Benzodiazepines Scrn Negative ng/mL (Negative) 12/13/24 18:15 Urine Cocaine Screen Negative ng/mL (Negative) 12/13/24 18:15 U Marijuana (THC) Screen Positive ng/mL (Negative) H 12/13/24 18:15 Ethyl Alcohol < 10 mg/dL (0-10) 12/13/24 17:49 All radiology interpretation(s) finalized by discharge EKG Data EKG 1: Attestation: I personally reviewed and interpreted this EKG as follows: EKG interpretation date: 12/13/24 EKG interpretation time: 17:44 Interpretation: sinus tach hr [address] elevation qrs 96 qtc 412 Discharge Plan Discharge Patient Disposition: Home Clinical Impression: Generalized seizure Condition: Stable Prescriptions: No Action aspirin [Children's Aspirin] 81 mg tablet,chewable 81 mg PO DAILY metoclopramide HCl [Reglan] 10 mg tablet 10 mg PO BID lisinopril 20 mg tablet 20 mg PO DAILY naltrexone 50 mg tablet 50 mg PO DAILY Qty: 30 2RF sertraline [Zoloft] 100 mg tablet 150 mg PO DAILY Qty: 45 2RF mirtazapine [Remeron] 30 mg tablet 30 mg PO .HS Qty: 30 2RF atomoxetine 60 mg capsule 60 mg PO DAILY Qty: 30 2RF Creon 12,000-38,000 -60,000 unit capsule,delayed release(DR/EC) 1 cap PO TID Rx Instructions: administer with meals and/or snacks pregabalin [Lyrica] 25 mg capsule 25 mg PO DAILY varenicline tartrate [Chantix Continuing Month Box] 1 mg tablet 1 mg PO BID Qty: 56 2RF acamprosate 333 mg tablet,delayed release (DR/EC) 666 mg PO TID Qty: 180 1RF Rx Instructions: administer with mid-day and evening meals buspirone 15 mg tablet 30 mg PO BID Qty: 60 2RF levocetirizine 5 mg tablet 5 mg PO DAILY magnesium 250 mg tablet 250 mg PO .QOD folic acid 1 mg Tablet 1 mg PO DAILY Qty: 90 0RF thiamine mononitrate (vit B1) [Vitamin B-1 (mononitrate)] 100 mg Tablet 100 mg PO DAILY Qty: 90 0RF multivitamin with folic acid [Thera] 400 mcg Tablet 1 tab PO DAILY Qty: 90 0RF potassium citrate 99 mg Capsule 99 mg PO DAILY Protonix 40 mg tablet,delayed release (DR/EC) 40 mg PO DAILY Qty: 10 0RF Discharge Orders: Discharge ED (Routine); Ordered 12/13/24 Ordered By: Hannah Feliciano Referrals: Roosevelt Aponte MD [Physician, Neurology] - 4-7 days Mahamed Sales MD [Primary Care Provider, Family Practice] - 4-7 days Discharge Diet: Advance as tolerated Discharge Activity: Resume usual activity Patient Instructions: Generalized Tonic Clonic Seizures (ED) Print Language: Jamaican Coding Level of Care Code ED Agile Scrum Master for Marko Avery
--- NOTE | 2024-12-13 17:44 | ECG_ITS ---
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
[2024-12-13] MEDS: LORazepam 1 MG/0.5 ML injection IVP (17:55)
[2024-12-13] MEDS: sodium chloride 0.9% 1,000 ML 999 ML IV (17:55)
[2024-12-13 17:57] LABS: Basophils # 0.1 10^3/uL (0.0-0.1); Basophils % 0.5 %; Eosinophils # 0.1 10^3/uL (0.0-0.8); Hematocrit 43.4 % (37-53); Lymphocytes # 4.7 10^3/uL (0.8-4.8); Lymphocytes % 41.2 %; Mean Corpuscular HGB Conc 34.3 g/dL (30-55); Mean Corpuscular Hemoglobin 33.3 pg (27-33); Mean Corpuscular Volume 97.1 fl (82-101); Mean Platelet Volume 9.7 fL (7.4-10.4); Monocytes # 1.4 10^3/uL (0.2-0.9); Monocytes % 11.9 %; Neutrophils # 5.08 10^3/uL (1.8-7.7); Nucleated Red Blood Cells % 0 %; Platelet Count 249 10^3/cmm (157-399); Red Blood Count 4.47 10^6/uL (3.85-5.65); Red Cell Distribution Width 14.4 % (12.1-15.1); White Blood Count 11.31 10^3/uL (3.29-11.43)
[2024-12-13 18:00] VITALS: BP 149/105; PULSE 122; RESP 18; O2SAT 99
--- NOTE | 2024-12-13 18:08 | PC.NURSE ---
seizure pads applied to bedrails pt currently denies hallucinations, headaches
[2024-12-13 18:19] LABS: Alanine Aminotransferase 132 U/L (0-41); Albumin Level 4.7 g/dL (3.5-5.2); Alkaline Phosphatase 236 U/L (40-130); Anion Gap 31.5 (5-19); Aspartate Amino Transferase 95 U/L (0-40); Blood Urea Nitrogen 7 mg/dL (6-20); Calcium 9.9 mg/dL (8.5-10.5); Carbon Dioxide 16 mmol/L (22-29); Chloride 88 mmol/L (98-107); Globulin 3.2 g/dL (1.3-4.6); Glomerular Filtration Rate 108.2 mL/min (90-130); Glucose 134 mg/dL (65-115); Osmolality Calculated 274 mOsm/kg (285-295); Potassium 3.5 mmol/L (3.5-5.1); Sodium 132 mmol/L (136-145); Total Bilirubin 0.7 mg/dL (0.15-1.2); Total Protein 7.9 g/dL (6.6-8.7)
[2024-12-13 18:21] LABS: Alcohol Level < 10 mg/dL (0-10)
[2024-12-13 18:39] LABS: Amphetamines Screen Urine Negative (Negative); Barbiturates Screen Urine Negative (Negative); Benzodiazepines Screen Urine Negative (Negative); Cocaine Screen Urine Negative (Negative); Opiate Screen Urine Positive (Negative); PCP Screen Urine Negative (Negative); THC Screen Urine Positive (Negative)
[2024-12-13 19:03] VITALS: BP 112/70; PULSE 100; RESP 18; O2SAT 97
[2024-12-13 19:53] VITALS: BP 125/83; PULSE 106; RESP 16; O2SAT 97
--- NOTE | 2024-12-14 07:21 | DCPLANNER ---
Message sent to Neurology-Patient presents after a seizure no known history of seizures imaging here is normal he feels much improved here his heart rates improved as well he stable for discharge we will give him follow-up with neurology he is return if worsening
== END 2024-12-13 19:55 | disposition home or self-care (01) ==
PROVIDERS: Emergency Provider Emergency Medicine; PCP Family Medicine
DX: G40.89 Other seizures (principal); Z79.82 Long term (current) use of aspirin; Z72.0 Tobacco use
CPT/HCPCS: 70450; 80053; 80306; 80307; 85025; 93005; 96374; 99285; J2060; J7030

== ENCOUNTER 2025-02-24 14:17 | Emergency (ER) | payer MEDICAID, SELFPAY ==
[2024-10-17 10:25] VITALS: BP 134/102; BMI 27.0
[2025-02-24] VITALS (13 sets, daily range): BP systolic 128–177; BP diastolic 94–124; PULSE 84–125; RESP 16–18; TEMP 36.9; O2SAT 95–99; BMI 24.5
--- NOTE | 2025-02-24 14:23 | XR_ITS ---
WS: [id number] Portable AP upright chest, 02/24/2025 Clinical Data: chest pain Comparison: Portable chest, 04/22/2024 Findings: No nodules, masses or effusions are seen. The heart is normal. The pulmonary vascularity is not increased. No pneumonia or pneumothorax is seen. There is plate and screw reduction of a right mid clavicular fracture. There are old right fifth and sixth rib fractures. Monitor leads are on the chest wall. XR/XR chest 1V portable [id number] Impression: Negative chest.
--- OUTSIDE RECORDS SUMMARY | 2025-02-24 14:25 | XMS_ITS | Clinical Summary ---
Author Organization [facility] Address [address] [place] [address] Phone Care Team Providers [employer] Sales Executive Name Role Phone Unavailable Primary Care Provider Unavailabl e Allergies No known active allergies Medications No known medications Active Problems No known active problems Social History Tobacco Use Types Packs/Day Years Used Date Smoking Tobacco: Every Day Cigarettes Smokeless Tobacco: Current Chew Alcohol Use Standard Drinks/Week Comments Yes 0 (1 standard drink = 0.6 oz pur e alcohol) daily large amount Sex and Gender Information Value Date Recorded Sex Assigned at Not on file Legal Sex Male 2:36 AM CDT Gender Identity Not on file Sexual Orientation Not on file Last Filed Vital Signs Vital Sign Reading Time Taken Comments Blood Pressure 153/95 04/23/2016 2:29 PM CDT Pulse 98 04/23/2016 2:29 PM CDT Temperature - - Respiratory Rate 18 04/19/2016 6:10 AM CDT Oxygen Saturation 99% 04/19/2016 6:10 AM CDT Inhaled Oxygen Concentration - - Weight 72.6 kg (160 lb) 04/23/2016 2:29 PM CDT Height 180.3 cm (5' 11 ) 04/23/2016 2:29 PM CDT Body Mass Index 22.32 04/23/2016 2:29 PM CDT Plan of Treatment Health Maintenance Due Date Last Done Comments HPV VACCINES (1 - Male 3-dose series) 2001 DTAP/TDAP/TD VACCINES (1 - Tdap) 2005 HEPATITIS B VACCINES (1 of 3 - 19+ 3-dose series) 01/2006 INFLUENZA VACCINE (#1) 2025
--- OUTSIDE RECORDS SUMMARY | 2025-02-24 14:25 | XMS_ITS | Encounter Summary ---
Author Organization [facility] Address [address] [place] [address] Care Team Providers Care Apartment Hotel Manager Name Role Phone Mahamed Sales MD Primary Care Provider [phone] Encounter Details Date Type Department Care Team (Late st Contact Info) Description 02/15/2025 External Device Data [place] ABSTRACTION Provider, Abstract NO ADDRESS ON FILE Social History Tobacco Use Types Packs/Day Years Used Date Smoking Tobacco: Every Day Cigarettes Smokeless Tobacco: Former Alcohol Use Standard Drinks/Week Comments Yes 35 (1 standard drink = 0.6 oz pu re alcohol) 15 beers a day Sex and Gender Information Value Date Recorded Sex Assigned at Not on file 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 Gender Identity Not on file Sexual Orientation Not on file documented as of this encounter Plan of Treatment Upcoming Encounters Date Type Department Care Team (Late st Contact Info) Description 03/08/2025 1:00 PM CDT Office Visit [facility] Pain Management [address] [place] [address] Lacie Summers PA [address] [place] [address] 03/27/2025 10:20 AM CDT Office Visit [facility] Gastroenterology- [place] [address] [place] [address] Josh Sanchez MD [address] [facility] [facility] [place] [address] [place] [phone] documented as of this encounter Visit Diagnoses Not on filedocumented in this encounter Care Teams Apartment Hotel Manager Relationship Specialty Start Date End Date Mahamed Saels MD [address] [phone] PCP - General Family Practice 06/17/24 documented as of this encounter
--- OUTSIDE RECORDS SUMMARY | 2025-02-24 14:25 | XMS_ITS | Clinical Summary ---
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 11/03/19 24 Active levocetirizine (XYZAL) 5 mg tablet Take 1 Tablet by mouth daily. 11/16/19 24 Active naltrexone (DEPADE) 50 mg tablet Take 1 Tablet by mouth daily. 10/20/19 24 Active pantoprazole (PROTONIX) 40 mg Tablet, Delayed Release (E.C.) Take 1 Tablet by mouth 2 times daily. Not taking as ordered 11/03/19 24 Active sertraline (ZOLOFT) 100 mg tablet Take 1 Tablet by mouth daily. 11/11/19 24 Active thiamine (VITAMIN B-1) 100 mg tablet Take 1 Tablet by mouth daily. Active naloxone (NARCAN) 4 mg/spray [place], Non-Aerosol EMERGENCY USE ONLY: Administer 1 spray (4 mg) in one nostril one time. May repeat in alternating nostrils every 2-3 min until responsive or EMS arrives. 2 Each 3 01/09/20 24 Active Additional Information Patient not taking.Reported on 01/12/2025 lipase-proteas e-amylase DR Moore) 36,000-114,000 -180,000 unit capsule Take 2 capsules with every meal and 1 with every snack 300 Capsule 2 01/18/20 24 Active nystatin (MYCOSTATIN) 100,000 unit/gram Cream APPLY TO THE AFFECTED AREA(S) topically TWICE DAILY 03/15/20 24 Active busPIRone (BUSPAR) 15 mg Tablet Take 15 mg by mouth daily. 03/03/20 24 Active metoclopramide HCl (REGLAN) 10 mg tablet Take 10 mg by mouth every 8 hours as needed for Nausea/Emesis. Active ondansetron (ZOFRAN ODT) 4 mg Tablet, Rapid Dissolve Take 1 Tablet (4 mg) by mouth every 6 hours as needed for Nausea/Emesis. Dissolve tablet on top of tongue, then swallow with saliva. 12 Tablet 06/11/20 Active Additional Information Patient not taking.Reported on 01/12/2025 folic acid (FOLVITE) 1 mg tablet Take 1 Tablet by mouth daily. 07/01/20 Active mirtazapine (REMERON) 30 mg tablet Take 30 mg by mouth daily at bedtime. 07/01/20 24 Active varenicline (CHANTIX) 1 mg Tablet Take 1 Tablet by mouth 2 times daily. 05/27/20 Active chlorhexidine gluconate 0.12 % Mouthwash 15 mL by Mouth/Throat route 2 times daily. 10/21/19 25 Active sucralfate (CARAFATE) 1 gram tablet Take 1 Gram by mouth 3 times daily before meals. 10/14/19 25 Active prochlorperazi ne maleate (COMPAZINE) 10 mg tablet Take 1 Tablet (10 mg) by mouth every 6 hours as needed for Nausea. 25 Tablet 12/13/19 25 Active Additional Information Patient not taking.Reported on 01/12/2025 lisinopriL (PRINIVIL) 20 mg tablet Take 20 mg by mouth daily. Active aspirin (ECOTRIN EC) 81 mg Tablet, Delayed Release (E.C.) Take 81 mg by mouth daily. Active magnesium OXIDE 250 mg magnesium Tablet Take 250 mg by mouth daily. Active pregabalin (LYRICA) 25 mg Capsule Take 1 capsule by mouth once daily at bedtime 30 Capsule 02/10/20 25 Active pregabalin (LYRICA) 25 mg Capsule Take 1 capsule by mouth once daily at bedtime 30 Capsule 01/04/20 25 025 Discontinued Active Problems Problem Noted Date Diagnosed Date Alcohol abuse 01/12/2025 History of seizure due to alcohol withdrawal 07/2025 Encounter for tobacco use cessation counseling 0 01/12/2025 PTSD (post-traumatic stress disorder) 01/12/2025 Chronic midline low back pain without sciatica 0 01/12/2025 Uncomplicated alcohol dependence 12/12/2024 Drug-induced constipation 07/08/2024 Hyperbilirubinemia 07/08/2024 Increased liver enzymes 07/06/2024 Chronic pancreatitis 06/19/2024 Transaminitis 06/19/2024 Acute on chronic pancreatitis 06/18/2024 History of alcohol use 06/18/2024 History of splenectomy 06/18/2024 Pancreatic pseudocyst 06/18/2024 Tobacco use 06/18/2024 Abdominal pain 01/07/2024 Alcohol-induced pancreatitis 01/06/2024 Depressive disorder 01/12/2023 Anxiety 01/12/2023 Hypertension Encounters Date Type Department Care Team Description 02/15/2025 External Device Data [facility] ABSTRACTION Provider, Abstract 02/15/2025 External Device Data [facility] ABSTRACTION Provider, Abstract 02/15/2025 External Device Data [facility] ABSTRACTION Provider, Abstract 02/15/2025 External Device Data [facility]STRACTION Provider, Abstract 02/08/2025 Refill [facility] [place] [address] [place] [address] Josh Sanchez MD 02/07/2025 External Device Data [facility] ABSTRACTION Provider, Abstract 02/07/2025 External Device Data [facility] ABSTRACTION Provider, Abstract 01/18/2025 External Device Data [facility] ABSTRACTION Provider, Abstract 01/17/2025 External Device Data [facility] ABSTRACTION Provider, Abstract 01/17/2025 External Device Data [facility] ABSTRACTION Provider, Abstract 01/11/2025 11:36 PM CDT - 01/14/2025 6:21 PM CDT Hospital Encounter [facility] Medical Telemetry [address] [place] [address] Davidson Beatty MD Sundaram, Vignesh, MD [place], Ramya Sree, MD Acute on chronic pancreatitis (CMS/HCC) Discharge Disposition: Left Against Medical Advice 01/11/2025 11:04 AM CDT - 01/11/2025 9:55 PM CDT Emergency [facility] Emergency Medicine [address] [place] [address] Faith Knight MD Acute on chronic pancreatitis (CMS/HCC) (Primary Dx); Pancreatic pseudocyst Discharge Disposition: Acute Care Hospital 01/11/2025 - 01/11/2025 11:59 PM CDT Hospital Encounter [facility] Emergency Medical Services [place] [address] [place] [address] Faith Knight MD Ambulance, [facility] 01/11/2025 Travel 01/10/2025 External Device Data [facility] ABSTRACTION Provider, Abstract 01/10/2025 External Device Data [facility] ABSTRA[facility] Provider, Abstract 01/10/2025 External Device Data [facility] Provider, Abstract 01/10/2025 External Device Data [facility]STRACTION Provider, Abstract 01/03/2025 External Device Data [facility] ABSTRACTION Provider, Abstract 01/03/2025 [facility] [address] [place] [address] Josh Sanchez MD 12/22/2024 9:15 AM CDT - 12/22/2024 11:59 PM CDT Hospital Encounter [facility] Pain Management Procedures [place] [address] [facility] [place] [address] Ozzy Wiggins FNP Discharge Disposition: Home or Self Care 12/22/2024 8:48 AM CDT - 12/22/2024 11:59 PM CDT Hospital Encounter [facility] Pain Management Procedures [place] [address] [facility] [place] [phone] Baldo Blas MD Discharge Disposition: Home or Self Care 12/13/2024 External Device Data [facility] ABSTRACTION Provider, Abstract 12/13/2024 External Device Data [facility] ABSTRACTION Provider, Abstract 12/13/2024 External Device Data [facility] ABSTRACTION Provider, Abstract 12/12/2024 5:32 PM CDT - 12/12/2024 8:21 PM CDT Emergency [facility] Emergency Medicine [address] [place] [address] Glynn Austin MD Alcohol-induced acute pancreatitis without infection or necrosis (Primary Dx); Acute on chronic pancreatitis (CMS/HCC); Pain of upper abdomen Discharge Disposition: Home or Self Care 12/12/2024 Travel 12/08/2024 [facility] [address] [place] [address] Josh Sanchez MD 12/07/2024 8:00 AM CDT - 12/07/2024 11:59 PM CDT Hospital Encounter [facility] Pain Management Procedures [place] [address] [place] [address] Finn Castano PA Discharge Disposition: Home or Self Care 12/07/2024 7:28 AM CDT - 12/07/2024 11:59 PM CDT Hospital Encounter [facility] Pain Management Procedures [place] [address] [place] [address] Baldo Blas MD Discharge Disposition: Home or Self Care from Last 3 Months Immunizations Immunization Administration Dates Next Due (ACTHIB/HIBERIX)(2 MOS-5 YRS /6 WKS-4 YRS) HAEMOPHILUS INFLUENZAE TYPE B VACCINE (HIB), PRP-T CONJUGATE, 4 DOSE, 0.5 ML IM 03/14/1988 (ADACEL/BOOSTRIX)(10 YR UP) TDAP VACCINE, 0.5ML, IM 10/16/2022,10/26/2013 (HAVRIX/VAQTA)(12 MO-18 YRS) HEPATITIS A VACCINE 0.5 ML PED/ADOL 2 DOSE, IM 05/02/2002 (INFANRIX)(6 WKS-6 YRS) DIPT HERIA, TETANUS TOXOIDS, AND ACCELLULAR PERTUSSIS VACCINE (DTAP), 0.5 ML IM 03/03/1992,03/14/1988,03/17/1987,01/20,1986 (PREVNAR 20)(6 WKS UP) PNEUM OCOCCAL CONJUGATE VACCINE 20-VALENT (PCV20), POLYSACCHARIDE [id number] CONJUGATE, ADJUVANT 0.5 ML (PF) IM 06/18/2024 (PROQUAD)(12 MOS-12 YRS)MISHA LES, MUMPS, RUBELLA, AND VARICELLA VIRUS VACCINE. 0.5 ML, SUBCUT 03/03/1992,12/26/1987 (TDVAX)(7 YRS UP) TETANUS AN D DIPHTHERIA TOXOIDS, ADSORBED (2 LF OF TETANUS TOXOID AND 2 LF OF DIPHTHERIA TOXOID), 0.5ML (PF), IM 05/02/2002 Hepatitis B Vaccine, Unspeci fied Formulation 10/17/1999,02/07/1999,01/08/1999 Poliovirus Vaccine Live Oral VFC 992,03/14/1987,01/20/1987,11/11 Social History Tobacco Use Types Packs/Day Years Used Date Smoking Tobacco: Every Day Cigarettes Smokeless Tobacco: Former Tobacco Cessation:Ready to Q uit: Not Asked; Counseling Given: Not Answered Alcohol Use Standard Drinks/Week Comments Yes 35 (1 standard drink = 0.6 oz pu re alcohol) 15 beers a day Sex and Gender Information Value Date Recorded Sex Assigned at Not on file 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 Gender Identity Not on file Sexual Orientation Not on file Last Filed Vital Signs Vital Sign Reading Time Taken Comments Blood Pressure 134/98 01/14/2025 1:46 PM CDT Pulse 87 01/14/2025 1:46 PM CDT Temperature 36.2 C (97.2 F) 01/14/2025 1:46 PM CDT Respiratory Rate 14 01/14/2025 1:46 PM CDT Oxygen Saturation 98% 01/14/2025 1:46 PM CDT Inhaled Oxygen Concentration - - Weight 80.8 kg (178 lb 2.1 oz) 01/14/2025 4:00 A M CDT Height 180.3 cm (5' 11 ) 01/11/2025 11:52 PM CDT Body Mass Index 24.84 01/11/2025 11:52 PM CDT Plan of Treatment Upcoming Encounters Date Type Department Care Team (Late st Contact Info) Description 03/08/2025 1:00 PM CDT Office Visit [facility] [address] [place] [address] Lacie Summers PA [address] [place] [address] 03/27/2025 10:20 AM CDT Office Visit [facility] [place] [address] [place] [address] Josh Sanchez MD [address] [place] [address] Health Maintenance Due Date Last Done Comments HPV VACCINES (1 - Male 3-dos e series) 2001 INFLUENZA VACCINE (#1) 2025 DTAP/TDAP/TD VACCINES (8 - T d or Tdap) 10/16/2032 10/16/2022, 10/26/2013, 05/02/2002, Additional history exists HEPATITIS B VACCINES Completed 10/17/1999, 02/07/1999, 01/08/1999 Procedures Procedure Name Priority Date/Time Associated Diagnosis Comments TELEMETRY REPORT 01/18/2025 3:08 PM CDT TELEMETRY REPORT 01/16/2025 4:03 PM CDT US ABDOMEN LIMITED Routine 01/14/2025 1: 06 PM CDT CBC WITH DIFFERENTIAL Routine 01/13/2025 6:27 AM CDT MAGNESIUM LEVEL Routine 01/13/2025 6:26 AM CDT COMPREHENSIVE METABOLIC PANEL Routine 01/13/2025 6:26 AM CDT MAGNESIUM LEVEL Routine 01/12/2025 7:13 AM CDT PROTIME-INR Routine 01/12/2025 7:13 AM CDT COMPREHENSIVE METABOLIC PANEL Routine 01/12/2025 7:13 AM CDT CBC WITH DIFFERENTIAL Routine 01/12/2025 7:[address] ABDOMEN PELVIS W CONTRAST Stat 01/11/2025 12:38 PM CDT LIPASE Stat 01/11/2025 11:15 AM CDT COMPREHENSIVE METABOLIC PANEL Stat 01/11/2025 11:15 AM CDT CBC WITH DIFFERENTIAL Stat 01/11/2025 11:15 AM CDT XR FLUORO NEEDLE GUIDANCE SPINE Routine 12/22/2024 9:[address] ABDOMEN PELVIS W CONTRAST Stat 12/12/2024 6:50 PM CDT EKG 12-LEAD Stat 12/12/2024 6:13 PM CDT AMYLASE Stat 12/12/2024 5:34 PM CDT TROPONIN BASELINE, 5TH GEN Stat 12/12/2024 5:34 PM CDT ETHANOL LEVEL Stat 12/12/2024 5:34 PM CDT LIPASE Stat 12/12/2024 5:34 PM CDT MAGNESIUM LEVEL Stat 12/12/2024 5:34 PM CDT C-REACTIVE PROTEIN Stat 12/12/2024 5: 34 PM CDT TSH Stat 12/12/2024 5:34 PM CDT LACTIC ACID Stat 12/12/2024 5:34 PM CDT BRAIN NATRIURETIC PEPTIDE, BNP OR PROBNP Stat 12/12/2024 5:34 PM CDT COMPREHENSIVE METABOLIC PANEL Stat 12/12/2024 5:34 PM CDT SEDIMENTATION RATE Stat 12/12/2024 5: 34 PM CDT D-DIMER Stat 12/12/2024 5:34 PM CDT PTT Stat 12/12/2024 5:34 PM CDT PROTIME-INR Stat 12/12/2024 5:34 PM CDT CBC WITH DIFFERENTIAL Stat 12/12/2024 5:34 PM CDT XR FLUORO NEEDLE GUIDANCE SPINE Routine 12/07/2024 8:00 AM CDT from Last 3 Months Results * TELEMETRY REPORT (01/18/2025 3:08 PM CDT) Only the most recent of2 resultswithin the time period is included. us Provider Scanning ECG ORDERABLES Final Result * US ABDOMEN LIMITED (01/14/2025 1:06 PM CDT) Anatomical Region Laterality Modality Abdomen Ultrasound 01/14/2025 1:06 PM CDT Impressions 01/14/2025 6:51 PM CDT IMPRESSION: Please see below. Exam: US ABDOMEN LIMITED Date/Time of Exam: 01/14/2025 1:06 PM Reason For Exam: Pancreatitis;Epigastric Pain Diagnosis: See Reason for Exam Findings: COMPARISON: None. LIVER Normal size, moderately echogenic, normal shape with smooth contour. No concerning hepatic lesion. GALLBLADDER No stones or sludge seen. Wall thickness at 2.8 mm (normal <3mm). Sonographic Hayes sign: Negative. BILE DUCTS Common bile duct 4.4 mm. PANCREAS Not seen due to overlying bowel gas. RIGHT KIDNEY Length 10.5 cm Normal size and morphology. No hydronephrosis. No nephrolithiasis. No concerning renal lesion. PERITONEUM / ASCITES Not visualized IMPRESSION: 1. Increased hepatic parenchymal echogenicity which can be seen in the setting of hepatic steatosis or fibrosis. No concerning hepatic lesions. 2. Otherwise unremarkable. Narrative Procedure Note Jesus Mejia MD - 01/14/2025 IMPRESSION: Please see below. Exam: US ABDOMEN LIMITED Date/Time of Exam: 01/14/2025 1:06 PM Reason For Exam: Pancreatitis;Epigastric Pain Diagnosis: See Reason for Exam Findings: COMPARISON: None. LIVER Normal size, moderately echogenic, normal shape with smooth contour. No concerning hepatic lesion. GALLBLADDER No stones or sludge seen. Wall thickness at 2.8 mm (normal <3mm). Sonographic Hayes sign: Negative. BILE DUCTS Common bile duct 4.4 mm. PANCREAS Not seen due to overlying bowel gas. RIGHT KIDNEY Length 10.5 cm Normal size and morphology. No hydronephrosis. No nephrolithiasis. No concerning renal lesion. PERITONEUM / ASCITES Not visualized IMPRESSION: 1. Increased hepatic parenchymal echogenicity which can be seen in the setting of hepatic steatosis or fibrosis. No concerning hepatic lesions. 2. Otherwise unremarkable. us Kristie Edge MD US ORDERABLES Final Re sult * (ABNORMAL) CBC WITH DIFFERENTIAL (01/13/2025 6:27 AM CDT) Only the most recent of4 resultswithin the time period is included. WBC 8.3 4.5 - 11.0 K/uL 01/13/2025 6:37 AM T [facility] RBC 4.09(L) 4.60 - 6.20 M/uL 01/13/2025 6:37 AM T [facility] HEMOGLOBIN 14.0 14.0 - 18.0 g/dL 01/13/2025 6:37 AM CDT [facility] HEMATOCRIT 39.7(L) 41.0 - 53.0 % 01/13/2025 6:37 AM CDT [facility] MCV 97.1 84.0 - 103.0 fL 01/13/2025 6:37 AM CDT [facility] MCH 34.2(H) 27.0 - 34.0 pg 01/13/2025 6:37 AM CDT [facility] MCHC 35.3(H) 30.0 - 35.0 g/dL 01/13/2025 6:37 AM [facility] PLATELETS 227 140 - 440 K/uL 01/13/2025 6:37 AM [facility] MPV 8.9 8.9 - 12.8 fL 01/13/2025 6:37 AM [facility] RDW 12.7 11.0 - 14.5 % 01/13/2025 6:37 AM [facility] RDW-STDEV 45.9 37.0 - 54.0 fL 01/13/2025 6:37 AM [facility] NEUTROPHILS 50 42 - 75 % 01/13/2025 6:37 AM [facility] LYMPHOCYTES 31 24 - 44 % 01/13/2025 6:37 AM [facility] MONOCYTES 10 2 - 10 % 01/13/2025 6:37 AM [facility] EOSINOPHILS 8(H) 0 - 7 % 01/13/2025 6:37 AM [facility] BASOPHILS 1 0 - 1 % 01/13/2025 6:37 AM [facility] IMMATURE GRANULOCYTES 0 0 - 2 % 01/13/2025 6:37 AM [facility] NEUTROPHIL ABSOLUTE 4.12 2.00 - 8.00 K/uL 01/13/2025 6:37 AM [facility] LYMPHOCYTE ABSOLUTE 2.60 1.20 - 4.00 K/uL 01/13/2025 6:37 AM [facility] MONOCYTE ABSOLUTE 0.79(H) 0.10 - 0.60 K/uL 01/13/2025 6:37 AM [facility] EOSINOPHIL ABSOLUTE 0.65 0.00 - 0.70 K/uL 01/13/2025 6:37 AM [facility] BASOPHILS ABSOLUTE 0.09 0.00 - 0.20 K/uL 01/13/2025 6:37 AM [facility] IMMATURE GRANULOCYTES ABSOLUTE 0.03 0.00 - 0.10 K/uL 01/13/2025 6:37 AM CDT [facility] SMEAR REVIEWED: NA - Not Applicable 01/13/2025 6:37 AM CDT [facility] Blood Venipuncture / Unknown 01/13/2025 6:27 AM CDT 01/13/2025 6:31 AM CDT Amador Hernandez MD HEMATOLOGY ORDERABLES Final Result Performing Organization Address [facility] Co de Phone Number [facility] CLIA # [id number] [facility] [address] [place] [address] * MAGNESIUM LEVEL (01/13/2025 6:26 AM CDT) Only the most recent of3 resultswithin the time period is included. MAGNESIUM 1.8 1.6 - 2.6 mg/dL 01/13/2025 7:07 AM CDT [facility] Blood Venipuncture / Unknown 01/13/2025 6:26 AM CDT 01/13/2025 6:31 AM CDT Amador Hernandez MD CHEMISTRY ORDERABLES Final R esult Performing Organization Address [facility] de Phone Number [facility] CLIA # [id number] [address] [address] * (ABNORMAL) COMPREHENSIVE METABOLIC PANEL (01/13/2025 6:26 AM CDT) Only the most recent of4 resultswithin the time period is included. SODIUM 137 136 - 145 mmol/L 01/13/2025 7:07 AM CDT [facility] POTASSIUM 3.8 3.5 - 5.1 mmol/L 01/13/2025 7:07 AM CDT [facility] CHLORIDE 102 98 - 107 mmol/L 01/13/2025 7:07 AM [facility] CO2 24 22 - 29 mmol/L 01/13/2025 7:07 AM [facility] CALCIUM 9.0 8.6 - 10.0 mg/dL 01/13/2025 7:07 AM [facility] BUN 6 6 - 20 mg/dL 01/13/2025 7:07 AM [facility] CREATININE 0.65(L) 0.67 - 1.17 mg/dL 01/13/2025 7:07 AM [facility] GLUCOSE 108(H) 74 - 99 mg/dL 01/13/2025 7:07 AM [facility] TOTAL PROTEIN 6.5 6.4 - 8.3 g/dL 01/13/2025 7:07 AM [facility] ALBUMIN 3.7 3.5 - 5.2 g/dL 01/13/2025 7:07 AM [facility] BILIRUBIN TOTAL 0.4 0.0 - 1.0 mg/dL 01/13/2025 7:07 AM [facility] ALKALINE PHOSPHATASE 141(H) 40 - 129 U/L 01/13/2025 7:07 AM [facility] AST 54(H) 10 - 50 U/L 01/13/2025 7:07 AM [facility] ALT 83(H) <=50 U/L 01/13/2025 7:07 AM [facility] GFR >60 >=60 mL/min/1. 73 sq meter 01/13/2025 7:07 AM [facility] Comment:eGFR calculated with 2020 CKD-EPI equation. Vegetarian diet, extremely high or low muscle mass, and may affect results. Cystatin C with Glomerular Filtration Rate is a suitable alternative for these patients. ANION GAP 11 9 - 20 mmol/L 01/13/2025 7:07 AM [facility] Blood Venipuncture / Unknown 01/13/2025 6:26 AM [facility] 01/13/2025 6:31 AM CDT Amador Hernandez MD CHEMISTRY ORDERABLES Final R esult [facility] [employer] [facility] CLIA # [id number] [address] [facility] [place], [place] [id number] * PROTIME-INR (01/12/2025 7:13 AM CDT) Only the most recent of2 resultswithin the time period is included. PROTIME 13.1 12.7 - 14.9 Seconds 01/12/2025 7:40 AM CDT [facility] [employer] [facility] INR 0.9 0.8 - 1.2 01/12/2025 7:40 AM CDT [facility] [employer] [facility] Blood Venipuncture / Unknown 01/12/2025 7:13 AM CDT 01/12/2025 7:27 AM CDT Narrative [facility] [employer] [facility] - 01/12/2025 7:40 AM CDT Expected Values for INR: DVT/PE Goal INR 2.5; range 2.0 - 3.0 Valve Replacement Tissue Goal INR 2.5; range 2.0 - 3.0 Valve Replacement Mechanical Goal INR 3.0; range 2.5 - 3.5 POST-RI Goal INR 2.5; range 2.0 - 3.0 or Goal INR 3.0; range 2.5 - 3.5 Atrial Fibrillation Goal INR 2.5; range 2.0 - 3.0 Ischemic Stroke Goal INR 2.5; range 2.0 - 3.0 us Amador Hernandez MD HEMATOLOGY ORDERABLES Final Result [facility] CLIA # [id number] [id number] [place] [address] * CT ABDOMEN PELVIS W CONTRAST (01/11/2025 12:38 PM CDT) Only the most recent of2 resultswithin the time period is included. Anatomical Region Laterality Modality Abdomen Computed Tomogra phy 01/11/2025 12:1 8 PM CDT Impressions 01/11/2025 2:15 PM CDT IMPRESSION: 1. Acute on chronic pancreatitis again identified, similar to the 12/12/2024 examination. There is been slight interval increase in the pseudocyst/abscess seen at the head neck junction of the pancreas now measuring 3.2 x 3.7 cm in axial plane, previously measuring up to 1.3 cm. This is not amenable to percutaneous drainage and if drainage is necessary, cyst gastrostomy tube may be necessary. 2. Additional incidental findings, similar to the prior dictation. Narrative 01/11/2025 2:15 PM CDT Exam: CT ABDOMEN PELVIS W CONTRAST Date/Time of Exam: 01/11/2025 12:38 PM REASON FOR EXAM: Epigastric pain. DIAGNOSIS: See Reason for Exam. Technique: CT of the abdomen was performed following the administration of intravenous contrast. Contrast: 97 mL Isovue-300 Findings: Comparison is made to the prior dictation performed 12/12/2024. ABDOMEN: The cystic structure at the head/neck of the pancreas has increased in size now measuring 3.2 x 3.7 cm in the axial plane, previously measuring up to 1.3 cm. There is diffuse inflammatory change involving the head and neck of the pancreas with mucosal inflammatory changes of the pancreaticoduodenal groove likely representing slight worsening of acute pancreatitis. There are reactive adjacent lymph nodes and there is chronic dilation of the pancreatic duct with some pancreatic calcification. Mild scarring or atelectasis is seen in the lung bases. Decreased attenuation of liver suggests hepatic steatosis. The liver is at the upper limits of normal in size. The gallbladder and biliary tree are within normal. The spleen is absent. The adrenal glands are unremarkable. The stomach is within normal limits. The distal small bowel loops and colon are within normal limits. The kidneys and ureters are unremarkable. The enhanced vascular structures are intact. Mild thoracolumbar spondylosis is again identified. Pelvis: There is no free fluid in the pelvis. The bladder wall is mildly thickened. The prostate is unremarkable. There is no pathologic inguinal or pelvic adenopathy. The bony pelvis is intact with mild degenerative changes. Procedure Note Donovan Epps MD - 01/11/2025 Exam: CT ABDOMEN PELVIS W CONTRAST Date/Time of Exam: 01/11/2025 12:38 PM REASON FOR EXAM: Epigastric pain. DIAGNOSIS: See Reason for Exam. Technique: CT of the abdomen was performed following the administration of intravenous contrast. Contrast: 97 mL Isovue-300 Findings: Comparison is made to the prior dictation performed 12/12/2024. ABDOMEN: The cystic structure at the head/neck of the pancreas has increased in size now measuring 3.2 x 3.7 cm in the axial plane, previously measuring up to 1.3 cm. There is diffuse inflammatory change involving the head and neck of the pancreas with mucosal inflammatory changes of the pancreaticoduodenal groove likely representing slight worsening of acute pancreatitis. There are reactive adjacent lymph nodes and there is chronic dilation of the pancreatic duct with some pancreatic calcification. Mild scarring or atelectasis is seen in the lung bases. Decreased attenuation of liver suggests hepatic steatosis. The liver is at the upper limits of normal in size. The gallbladder and biliary tree are within normal. The spleen is absent. The adrenal glands are unremarkable. The stomach is within normal limits. The distal small bowel loops and colon are within normal limits. The kidneys and ureters are unremarkable. The enhanced vascular structures are intact. Mild thoracolumbar spondylosis is again identified. Pelvis: There is no free fluid in the pelvis. The bladder wall is mildly thickened. The prostate is unremarkable. There is no pathologic inguinal or pelvic adenopathy. The bony pelvis is intact with mild degenerative changes. IMPRESSION: 1. Acute on chronic pancreatitis again identified, similar to the 12/12/2024 examination. There is been slight interval increase in the pseudocyst/abscess seen at the head neck junction of the pancreas now measuring 3.2 x 3.7 cm in axial plane, previously measuring up to 1.3 cm. This is not amenable to percutaneous drainage and if drainage is necessary, cyst gastrostomy tube may be necessary. 2. Additional incidental findings, similar to the prior dictation. Faith Knight MD CT ORDERABLES Final Result * LIPASE (01/11/2025 11:15 AM CDT) Only the most recent of2 resultswithin the time period is included. LIPASE 33 13 - 60 U/L 01/11/2025 12:03 PM CDT [facility] Blood BLOOD SPECIMEN / Unknown Collection / Unknown 01/11/2025 11:15 AM CDT 01/11/2025 11:38 AM CDT Faith Knight MD CHEMISTRY ORDERABLES Final R esult [facility] CLIA # [id number] [address] [place] [address] 61448 * XR FLUORO NEEDLE GUIDANCE SPINE (12/22/2024 9:26 AM CDT) Only the most recent of2 resultswithin the time period is included. Narrative 12/22/2024 9:26 AM CDT Order information only. Exam was auto-finalized. Oz[facility] ORDERABLES Fi nal Result * EKG 12-LEAD (12/12/2024 6:13 PM CDT) Narrative Arsalan Turpin MD - 12/12/2024 6:13 PM CDT Arsalan Turpin MD 12/12/2024 8:03 PM EKG 12-LEAD Date/Time: 12/12/2024 6:13 PM Performed by: Glynn Austin MD Authorized by: Glynn Austin MD ECG interpreted by ED Physician in the absence of a cardiovascular technologist: yes Rate: ECG rate: 103 ECG rate assessment: tachycardic Rhythm: Rhythm Origin: sinus Intervals: normal QRSTT: QRSTT changes: No R wave transition: Good Glynn Austin MD ECG ORDERABLES Final Result * TROPONIN BASELINE, 5TH GEN (12/12/2024 5:34 PM CDT) TROPONIN T, BASELINE 5TH GEN <6 <=15 ng/L 12/12/2024 6:04 PM CDT [facility] Blood Collection / Unknown 12/12/2024 5:34 PM CDT 12/12/2024 5:43 PM CDT Narrative [facility] - 12/12/2024 6:04 PM CDT Troponin Undetectable us Glynn Austin MD CHEMISTRY ORDERABLES Final Resu lt Performing Organization Address [facility]/ZIP Co de Phone Number [facility] CLIA # [id number] [address] [place] [address] [phone] * LACTIC ACID (12/12/2024 5:34 PM CDT) LACTIC ACID 2.0 <=2.0 mmol/L 12/12/2024 5:59 PM CDT [facility] Blood BLOOD SPECIMEN / Unknown Collection / Unknown 12/12/2024 5:34 PM CDT 12/12/2024 5:43 PM CDT us Glynn Austin MD CHEMISTRY ORDERABLES Final Resu lt Performing Organization Address [facility] Co de Phone Number [facility] CLIA # [id number] [address] [place] [address] 17622 * (ABNORMAL) PTT (12/12/2024 5:34 PM CDT) PTT 23.0(L) 25.8 - 34.0 seconds 12/12/2024 5:55 PM CDT [facility] Blood Collection / Unknown 12/12/2024 5:34 PM CDT 12/12/2024 5:43 PM CDT us Glynn Austin MD HEMATOLOGY ORDERABLES Final Res ult Performing Organization Address [facility] Co de Phone Number [facility] CLIA # [id number] [address] [place] [address] [phone] * SEDIMENTATION RATE (12/12/2024 5:34 PM CDT) ESR (SEDIMENTATION RATE) 5 0 - 15 mm/Hr 12/12/2024 5:56 PM CDT [facility] Blood Collection / Unknown 12/12/2024 5:34 PM CDT 12/12/2024 5:43 PM CDT [facility] - 12/12/2024 5:56 PM CDT Tube Lot: [id number] Exp Date: 05/02/2026 SR 0125-1 EXP. 02/04/25 SR 0125-2 EXP. 02/04/25 Glynn Austin MD HEMATOLOGY ORDERABLES Final Res ult Performing Organization Address [facility]/ZIP Co de Phone Number [facility] CLIA # [id number] [address] [place] [address] [phone] * (ABNORMAL) D-DIMER (12/12/2024 5:34 PM CDT) D-DIMER QUANT 1.00(H) <0.50 ug/mL FEU 12/12/2024 5:59 PM CDT [facility] Blood Collection / Unknown 12/12/2024 5:34 PM CDT 12/12/2024 5:43 PM CDT [facility] - 12/12/2024 5:59 PM CDT D-Dimer assay cutoff value for exclusion of DVT and/or PE is <0.50 ug/mL FEU. Glynn Austin MD HEMATOLOGY ORDERABLES Final Res ult [facility] CLIA # [id number] [address] [place] [address] 72181 * C-REACTIVE PROTEIN (12/12/2024 5:34 PM CDT) CRP <3.0 <5.0 mg/L 12/12/2024 6:0 4 PM CDT [facility] Blood Collection / Unknown 12/12/2024 5:34 PM CDT 12/12/2024 5:43 PM CDT us Glynn Austin MD CHEMISTRY ORDERABLES Final Resu lt Performing Organization Address [facility]/ZIP Co de Phone Number [facility] CLIA # [id number] [address] [place] [address] [phone] * TSH (12/12/2024 5:34 PM CDT) TSH 1.98 0.27 - 4.20 uIU/mL 12/12/2024 6:07 PM CDT [facility] Blood Collection / Unknown 12/12/2024 5:34 PM CDT 12/12/2024 5:43 PM CDT us Glynn Austin MD CHEMISTRY ORDERABLES Final Resu lt Performing Organization Address [facility] de Phone Number [id number] [address] [place] [address] 61542 * BRAIN NATRIURETIC PEPTIDE, BNP OR PROBNP (12/12/2024 5:34 PM CDT) PROBNP, N TERMINAL <36 0 - 125 pg/mL 12/12/2024 6:04 PM CDT [facility] Comment: INTERPRETIVE COMMENT based on diagnosis: Diagnostic NT pro-BNP cutoffs for Heart Failure in the absence of renal failure is suggested for the following ranges <75 years: <125 pg/mL >=75 years: <450 pg/mL Exclusionary rule out cut-point for Acute Decompensated Heart Failure(ADHF) All ages: <300 pg/mL Diagnostic NT pro-BNP cutoffs for Acute Decompensated Heart Failure(ADHF) in the absence of renal failure is suggested for the following ages <50 years: > 450 pg/mL 50-75 years: > 900 pg/mL >75 years: >1800 pg/mL Blood Collection / Unknown 12/12/2024 5:34 PM CDT 12/12/2024 5:43 PM CDT us Glynn Austin MD CHEMISTRY ORDERABLES Final Resu lt [facility] CLIA # [id number] [address] [place] [address] 09940 * (ABNORMAL) AMYLASE (12/12/2024 5:34 PM CDT) AMYLASE 196(H) 28 - 100 U/L 12/12/2024 6:10 PM CDT [facility] Blood BLOOD SPECIMEN / Unknown Collection / Unknown 12/12/2024 5:34 PM CDT 12/12/2024 5:57 PM CDT us Glynn Austin MD CHEMISTRY ORDERABLES Final Resu lt Performing Organization Address [facility] Co de Phone Number [facility] CLIA # [id number] [address] [place] [address] 38127 * (ABNORMAL) ETHANOL LEVEL (12/12/2024 5:34 PM CDT) ETHANOL 199.00(H) <10.10 mg/dL 12/12/2024 6:04 PM CDT [facility] ETHANOL % 0.20 %w/v 12/12/2024 6:04 PM CDT [facility] Blood Collection / Unknown 12/12/2024 5:34 PM CDT 12/12/2024 5:43 PM CDT us Glynn Austin MD CHEMISTRY ORDERABLES Final Resu lt [facility] CLIA # [id number] [address] [place] [address] 07892 from Last 3 Months Insurance [facility] [employer] MEDICAID RX INFOCROSSING Medicaid RX [employer] (INTERNAL) [facility] Advance Directives For more information, please contact: [phone] * Full Code (Latest Code Status on File) Date Activated Date Inactivated Comments 01/11/2025 11:53 PM 01/14/2025 8:21 PM * Full Code Date Activated Date Inactivated Comments 08/10/2024 12:14 PM 08/10/2024 4:16 PM * Full Code Date Activated Date Inactivated Comments 07/03/2024 10:13 AM 07/12/2024 6:33 PM * Full Code Date Activated Date Inactivated Comments 06/18/2024 1:02 PM 06/24/2024 12:39 PM * Full Code Date Activated Date Inactivated Comments 01/06/2024 5:29 PM 01/09/2024 6:14 PM Care Teams 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
--- NOTE | 2025-02-24 14:34 | W.ED.CHESTPA ---
HPI - Chest Pain General: Chief Complaint: Chest Pain Stated Complaint: Chest Pain Time Seen by Provider: 02/24/25 14:21 History of Present Illness: 39-year-old male presents emergency room complaining of chest pain patient was sitting outside he started drinking a beer after this he had chest discomfort radiating from his chest into his jaw and head and left shoulder he became somewhat dizzy when he first stands he denies being outside for extended periods of time today. He denies cough or shortness of breath denies abdominal pain. He is in sinus tachycardia on arrival here with a rate at and slightly above 100. No abdominal pain former heavy user of alcohol is a history of recurrent pancreatitis Associated symptoms: Deny abdominal pain, dyspnea or fever(s) Related Data Home Medications ?Medication ?Instructions ?Recorded ?Confirmed aspirin 81 mg chewable tablet 81 mg PO DAILY 06/22/23 02/14/25 (Children's Aspirin) levocetirizine 5 mg tablet 5 mg PO DAILY 10/31/23 02/14/25 magnesium 250 mg tablet 250 mg PO .QOD 12/23/23 02/14/25 [id number] 1 cap PO TID 01/18/24 02/14/25 12,000-38,000-60,000 unit capsule,delayed rel (Creon) pregabalin 25 mg capsule (Lyrica) 25 mg PO DAILY 03/03/24 02/14/25 lisinopril 20 mg tablet 20 mg PO DAILY 10/10/24 02/14/25 metoclopramide HCl 10 mg tablet 10 mg PO BID 10/10/24 02/14/25 (Reglan) Previous Rx's ?Medication ?Instructions ?Recorded folic acid 1 mg tablet 1 mg PO DAILY #90 tabs 03/03/23 thiamine mononitrate (vit B1) 100 100 mg PO DAILY #90 tabs 03/03/23 mg tablet (Vitamin B-1 (mononitrate)) pantoprazole 40 mg tablet,delayed 40 mg PO DAILY #10 tabs 01/27/24 release (Protonix) buspirone 15 mg tablet 30 mg (2 x 15 mg) PO BID #60 tabs 12/05/24 varenicline tartrate 1 mg tablet 1 mg PO BID #56 tabs 12/29/24 (Chantix Continuing Month Box) atomoxetine 60 mg capsule 60 mg PO DAILY #30 caps 01/02/25 sertraline 100 mg tablet (Zoloft) 150 mg (1.5 x 100 mg) PO DAILY #45 01/02/25 tabs mirtazapine 30 mg tablet (Remeron) 30 mg PO .HS #30 tabs 02/05/25 naltrexone microspheres 380 mg 380 mg IM .[id number] #1 ea 02/14/25 intramuscular suspension,extended release metoclopramide HCl 10 mg tablet 10 mg PO Q6H PRN nausea and 02/24/25 (Reglan) vomiting #14 tabs sucralfate 1 gram tablet (Carafate) 1 g PO Q6H 2 weeks #56 tabs 02/24/25 Allergies Allergy/AdvReac Type Severity Reaction Status Date / Time acamprosate Allergy Intermediate ADR-Depress Verified 02/14/25 14:21 ion piperacillin (From Zosyn) Allergy ADR-Swelling Verified 02/14/25 14:21 of the Eye tazobactam (From Zosyn) Allergy ADR-Swelling Verified 02/14/25 14:21 of the Eye Review of Systems Const: Denies: fever(s) or chills Card: Denies: chest pain Resp: Denies: dyspnea GI: Denies: abdominal pain : Denies: dysuria, urinary frequency or urinary urgency Musc: Denies: neck pain or back pain Skin/Breast: Denies: rash PFSH ED PFSH: Medical History History of ADHD Alcohol dependence Generalized anxiety disorder Cannabis use disorder Pseudocyst, pancreas Abdominal pain Acute pancreatitis Drug allergy Acute chest wall pain Acute pancreatitis Psychiatric care Tobacco use Hypomagnesemia Hepatomegaly Transaminitis Alcohol intoxication Alcoholism Esophagitis Alcohol intoxication Acute pancreatitis Pseudocyst of pancreas Polysubstance abuse History of suicide attempt C7 cervical fracture C2 cervical fracture L4 vertebral fracture Alcohol abuse PTSD (post-traumatic stress disorder) Elevated transaminase level Pancreatitis, alcoholic, acute Surgical History History of appendectomy History of splenectomy Family History Other Diabetes Social History Smoking and tobacco/nicotine status: current every day tobacco/nicotine user Alcohol intake: current Alcohol intake frequency: 3 or more drinks per day Alcohol type: hard liquor Substance/Drug Use: current Substance/Drug use frequency: daily Adopted: No Caregiver/support person: No Lives independently: No Household members: significant other Marital status: Number of children: 4 Highest education level completed: 12th Grade, No Diploma Current occupational status: unemployed Pets and animals: Yes Leisure activites: other Leisure activities details: None at this time Sexually active: Yes Do you think of yourself as: Straight/Heterosexual Current gender identity: Male Mary Lou/Lutheran: Anabaptist Special mary lou needs: No Agree to transfusion: Yes Physical Exam Const: GENERAL APPEARANCE: cooperative ORIENTATION/CONSCIOUSNESS: Yes awake, Yes oriented to person, Yes oriented to place and Yes oriented to time HENMT: COMMON NORMALS: normocephalic, atraumatic and hearing grossly normal bilaterally HEAD & SCALP: normocephalic and atraumatic Resp: COMMON NORMALS: normal respiratory effort, No retractions, No use of accessory muscles and clear to auscultation bilaterally AUSCULTATION: clear to auscultation bilaterally Cardio: COMMON NORMALS: regular rhythm and No murmurs present (Cardio) RATE: tachycardic RHYTHM: regular rhythm GI: COMMON NORMALS: Soft to palpation and No hepatosplenomegaly present AUSCULTATION: Yes normoactive bowel sounds PALPATION: Yes Soft to palpation, No Tenderness to palpation present (GI), No Guarding due to palpation present (GI) and Yes No hepatosplenomegaly present Extremity: COMMON NORMALS: normal to inspection, capillary refill normal, no clubbing, cyanosis or edema, no calf tenderness and no pedal edema Neuro: SENSORIUM/ORIENTATION: Yes oriented to person, Yes oriented to place and Yes oriented to time Skin: COMMON NORMALS: no rashes or lesions noted GENERAL SKIN EXAM: no rashes or lesions noted Course Vital Signs: Vital signs: Vital Signs Temperature 98.4 F 02/24/25 14:18 Pulse Rate 86 02/24/25 18:45 Respiratory Rate 16 02/24/25 18:45 Blood Pressure 140/97 02/24/25 18:45 Pulse Oximetry 96 02/24/25 18:45 Oxygen Delivery Me thod Room Air 02/24/25 14:18 MDM - Chest Pain Medical Decision Making Cardiac enzymes are negative. EKG is normal does not show any acute ST changes. Liver functions elevated. Patient admits to regular heavy drinking. Suspect his symptoms are due to reflux and alcoholic gastritis and reviewed this with him today. Encouraged him to consider alcohol abstinence. He is not having any further symptoms at this time. He is already on Protonix 40 mg twice a day added Carafate and give Reglan for nausea. Medical Records I reviewed the patient's medical records. Lab Data I reviewed the patient's lab results. 02/24/25 14:36 02/24/25 14:36 Radiology Impressions Chest X-Ray 02/24/25 14:23 Impression: Negative chest. Laboratory Results WBC 11.17 10^3/uL (3.29-11.43) 02/24/25 14:36 RBC 5.00 10^6/uL (3.85-5.65) 02/24/25 14:36 Hgb 16.90 g/dL (11.27-16.99) 02/24/25 14:36 Hct 47.9 % (37-53) 02/24/25 14:36 MCV 95.8 fl (82-101) 02/24/25 14:36 MCH 33.8 pg (27-33) H 02/24/25 14:36 MCHC 35.3 g/dL (30-55) 02/24/25 14:36 RDW 13.7 % (12.1-15.1) 02/24/25 14:36 Plt Count 364 10^3/cmm (157-399) 02/24/25 14:36 MPV 8.8 fL (7.4-10.4) 02/24/25 14:36 Neut % (Auto) 69.3 % 02/24/25 14:36 Lymph % (Auto) 21.3 % 02/24/25 14:36 Gallia % (Auto) 7.8 % 02/24/25 14:36 Eos % (Auto) 0.6 % 02/24/25 14:36 Baso % (Auto) 0.6 % 02/24/25 14:36 Neut # (Auto) 7.74 10^3/uL (1.8-7.7) H 02/24/25 14:36 Lymph # (Auto) 2.4 10^3/uL (0.8-4.8) 02/24/25 14:36 [place] # (Auto) 0.9 10^3/uL (0.2-0.9) 02/24/25 14:36 Eos # (Auto) 0.1 10^3/uL (0.0-0.8) 02/24/25 14:36 Baso # (Auto) 0.1 10^3/uL (0.0-0.1) 02/24/25 14:36 Nucleated RBC % (auto) 0 % 02/24/25 14:36 Nucleated RBCs # 0.0 /100WBC 02/24/25 14:36 Sodium 138 mmol/L (136-145) 02/24/25 14:36 Potassium 4.8 mmol/L (3.5-5.1) 02/24/25 14:36 Chloride 98 mmol/L (98-107) 02/24/25 14:36 Carbon Dioxide 23 mmol/L (22-29) 02/24/25 14:36 Anion Gap 21.8 (5-19) H 02/24/25 14:36 BUN 8 mg/dL (6-20) 02/24/25 14:36 Creatinine 0.7 mg/dL (0.7-1.2) 02/24/25 14:36 GFR Calculation 126.2 mL/min (90-130) 02/24/25 14:36 Glucose 123 mg/dL (65-115) H 02/24/25 14:36 Calculated Osmolality 286 mOsm/kg (285-295) 02/24/25 14:36 Calcium 10.3 mg/dL (8.5-10.5) 02/24/25 14:36 Total Bilirubin 1.1 mg/dL (0.15-1.2) 02/24/25 14:36 AST 66 U/L (0-40) H 02/24/25 14:36 ALT 79 U/L (0-41) H 02/24/25 14:36 Alkaline Phosphatase 276 U/L (40-130) H 02/24/25 14:36 Troponin T Baseline < 6 ng/L (0-15) 02/24/25 14:36 Troponin T 120 Minute 6.60 ng/L (0-15) 02/24/25 16:26 Delta Troponin T 0.41875 ABS# (0-10) 02/24/25 16:26 Total Protein 8.3 g/dL (6.6-8.7) 02/24/25 14:36 Albumin 4.9 g/dL (3.5-5.2) 02/24/25 14:36 Globulin 3.4 g/dL (1.3-4.6) 02/24/25 14:36 TSH 1.43 uIU/mL (0.27-4.20) 02/24/25 14:36 All radiology interpretation(s) finalized by discharge EKG Data EKG 1: Interpretation: EKG 02/24/2025 1416 sinus arrhythmia with tachycardia at a rate of 100. [place] interval of 180. QTc 375. No computer causes atrial fibrillation to which is incorrect there is a P wave regularly in front of each QRS. EKG 2: Computer generated interpretation: EKG 02/24/2025 1620. Normal sinus rhythm with a rate of 90 [place] interval of 143 QTc of 400. No acute ST changes. Sinus arrhythmia present on the previous EKG and no longer present. (Note at the time of this dictation the EKG is present in paper form but has not been uploaded to the chart, given to staff to have uploaded.) Discharge Plan Discharge Patient Disposition: Home Clinical Impression: Chest pain due to GERD, Gastritis, alcoholic Condition: Stable Prescriptions: New sucralfate [Carafate] 1 gram tablet 1 g PO Q6H 14 Days Qty: 56 0RF metoclopramide HCl [Reglan] 10 mg tablet 10 mg PO Q6H PRN (Reason: nausea and vomiting) Qty: 14 0RF No Action aspirin [Children's Aspirin] 81 mg tablet,chewable 81 mg PO DAILY metoclopramide HCl [Reglan] 10 mg tablet 10 mg PO BID lisinopril 20 mg tablet 20 mg PO DAILY naltrexone microspheres 380 mg suspension,extended rel recon 380 mg IM .[id number] Qty: 1 3RF Creon 12,000-38,000 -60,000 unit capsule,delayed release(DR/EC) 1 cap PO TID Rx Instructions: administer with meals and/or snacks pregabalin [Lyrica] 25 mg capsule 25 mg PO DAILY buspirone 15 mg tablet 30 mg PO BID Qty: 60 2RF varenicline tartrate [Chantix Continuing Month Box] 1 mg tablet 1 mg PO BID Qty: 56 2RF atomoxetine 60 mg capsule 60 mg PO DAILY Qty: 30 2RF sertraline [Zoloft] 100 mg tablet 150 mg PO DAILY Qty: 45 2RF mirtazapine [Remeron] 30 mg tablet 30 mg PO .HS Qty: 30 2RF levocetirizine 5 mg tablet 5 mg PO DAILY magnesium 250 mg tablet 250 mg PO .QOD folic acid 1 mg Tablet 1 mg PO DAILY Qty: 90 0RF thiamine mononitrate (vit B1) [Vitamin B-1 (mononitrate)] 100 mg Tablet 100 mg PO DAILY Qty: 90 0RF Protonix 40 mg tablet,delayed release (DR/EC) 40 mg PO DAILY Qty: 10 0RF Discharge Orders: Discharge ED (Routine); Ordered 02/24/25 Ordered By: Isael Noble Referrals: Mahamed Sales MD [Primary Care Provider, [facility]] Discharge Diet: As Directed Discharge Activity: Increase activity as tolerated Patient Instructions: Diet for Stomach Ulcers and Gastritis (ED), GERD (Gastroesophageal Reflux Disease) (ED), Opioid Safety, Pain Management, Patient Portal & Eli Instructions Print Language: Danish Coding Level of Care Code ED Property Staff Accountant for Marko Avery
[2025-02-24 14:57] LABS: Hematocrit 47.9 % (37-53); Hemoglobin 16.90 g/dL (11.27-16.99); Mean Corpuscular HGB Conc 35.3 g/dL (30-55); Mean Corpuscular Hemoglobin 33.8 pg (27-33); Mean Corpuscular Volume 95.8 fl (82-101); Nucleated Red Blood Cells % 0 %; Platelet Count 364 10^3/cmm (157-399); Red Blood Count 5.00 10^6/uL (3.85-5.65); White Blood Count 11.17 10^3/uL (3.29-11.43)
[2025-02-24 15:15] LABS: Troponin(5th) Baseline < 6 ng/L (0-15)
[2025-02-24 15:25] LABS: Alanine Aminotransferase 79 U/L (0-41); Albumin Level 4.9 g/dL (3.5-5.2); Alkaline Phosphatase 276 U/L (40-130); Aspartate Amino Transferase 66 U/L (0-40); Blood Urea Nitrogen 8 mg/dL (6-20); Calcium 10.3 mg/dL (8.5-10.5); Carbon Dioxide 23 mmol/L (22-29); Chloride 98 mmol/L (98-107); Creatinine Clr Calc Pharmacy 156.0616; Globulin 3.4 g/dL (1.3-4.6); Glucose 123 mg/dL (65-115); Osmolality Calculated 286 mOsm/kg (285-295); Sodium 138 mmol/L (136-145); Thyroid Stimulating Hormone 1.43 uIU/mL (0.27-4.20); Total Protein 8.3 g/dL (6.6-8.7)
[2025-02-24 15:28] LABS: Anion Gap 21.8 (5-19); Potassium 4.8 mmol/L (3.5-5.1)
--- NOTE | 2025-02-24 16:20 | ECG_ITS ---
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 Measurements Intervals [place] Rate: 90 P: 56 ME: 143 QRS: 52 QRSD: 87 T: 42 QT: 353 QTc: 432 Interpretive Statements SINUS RHYTHM POSSIBLE LEFT ATRIAL ENLARGEMENT [-0.1mV P-WAVE IN V1/V2] Compared to ECG 12/13/2024 17:44:36 Sinus tachycardia no longer present Electronically Signed On 02-25-2025 08:46:00 CDT by Jamal Godwin M.D. [email or web address] [id number]
[2025-02-24 17:10] LABS: Troponin 5 2HR 6.60 ng/L (0-15); Troponin 5 2HR Delta 0.60001 ABS# (0-10)
[2025-02-24] MEDS: morphine 4 mg/mL SDV 1 mL IVP (18:33)
== END 2025-02-24 18:49 | disposition home or self-care (01) ==
PROVIDERS: Emergency Provider Family Medicine; PCP Family Medicine
DX: R07.89 Other chest pain (principal); K21.9 Gastro-esophageal reflux disease without esophagitis; K29.20 Alcoholic gastritis without bleeding; Z79.82 Long term (current) use of aspirin; Z72.0 Tobacco use
CPT/HCPCS: 71045; 80053; 84443; 84484; 85025; 93005; 96361; 96374; 99285; J2270; J7030

== ENCOUNTER 2025-02-26 12:19 | Emergency (ER) | payer MEDICAID, SELFPAY ==
[2024-10-17 10:25] VITALS: BP 134/102; BMI 27.0
[2025-02-26 12:23] VITALS: BP 146/105; PULSE 80; RESP 16; TEMP 36.8; O2SAT 98; BMI 24.5
--- NOTE | 2025-02-26 12:24 | XRR_ITS ---
PROCEDURE INFORMATION: Exam: XR Chest Exam date and time: 02/26/2025 12:26 PM Age: 39 years old Clinical indication: Pain; Chest pressure; Prior surgery; Surgery date: 6+ months; Surgery type: RT clavicle; Additional info: Cp TECHNIQUE: Imaging protocol: Radiologic exam of the chest. Views: 1 view. COMPARISON: CR XR chest 1V portable [id number] 02/24/2025 2:38 PM FINDINGS: Lungs: Unremarkable. No consolidation. Pleural spaces: Unremarkable. No pleural effusion. No pneumothorax. Heart/Mediastinum: Unremarkable. No cardiomegaly. Bones/joints: Right clavicle hardware is again seen and appears intact. No significant deformity. No acute findings. XR/XR chest 1V portable [id number] IMPRESSION: No acute findings.
--- NOTE | 2025-02-26 12:24 | ECG_ITS ---
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 Measurements Intervals [place] Rate: 77 P: 39 RI: 143 QRS: 31 QRSD: 103 T: 38 QT: 403 QTc: 457 Interpretive Statements SINUS RHYTHM Compared to ECG 02/24/2025 16:20:58 No significant changes Electronically Signed On 02-26-2025 15:25:21 CDT by Omar [email or web address]
--- NOTE | 2025-02-26 12:25 | W.ED.CHESTPA ---
HPI - Chest Pain General: Chief Complaint: Chest Pain Stated Complaint: chest pain; headache Time Seen by Provider: 02/26/25 12:21 Source: patient Mode of arrival: ambulatory Limitations: no limitations History of Present Illness: 39-year-old male he states that he has been having chest pain along with headaches that started this morning at 4 AM. States his headaches mild nature rates a 5 out of 10 has been having some sharp chest pains been a 6 out of 10 he denies any shortness of breath denies any vomiting denies any worse or improving factors. Associated symptoms: Reports abdominal pain; Deny dyspnea, fever(s), nausea or vomiting Related Data Home Medications ?Medication ?Instructions ?Recorded ?Confirmed aspirin 81 mg chewable tablet 81 mg PO DAILY 06/22/23 02/26/25 (Children's Aspirin) levocetirizine 5 mg tablet 5 mg PO DAILY 10/31/23 02/26/25 magnesium 250 mg tablet 250 mg PO .QOD 12/23/23 02/26/25 [id number] 1 cap PO TID 01/18/24 02/26/25 12,000-38,000-60,000 unit capsule,delayed rel (Creon) pregabalin 25 mg capsule (Lyrica) 25 mg PO DAILY 03/03/24 02/26/25 lisinopril 20 mg tablet 20 mg PO DAILY 10/10/24 02/26/25 Previous Rx's ?Medication ?Instructions ?Recorded folic acid 1 mg tablet 1 mg PO DAILY #90 tabs 03/03/23 thiamine mononitrate (vit B1) 100 100 mg PO DAILY #90 tabs 03/03/23 mg tablet (Vitamin B-1 (mononitrate)) pantoprazole 40 mg tablet,delayed 40 mg PO DAILY #10 tabs 01/27/24 release (Protonix) buspirone 15 mg tablet 30 mg (2 x 15 mg) PO BID #60 tabs 12/05/24 varenicline tartrate 1 mg tablet 1 mg PO BID #56 tabs 12/29/24 (Chantix Continuing Month Box) atomoxetine 60 mg capsule 60 mg PO DAILY #30 caps 01/02/25 sertraline 100 mg tablet (Zoloft) 150 mg (1.5 x 100 mg) PO DAILY #45 01/02/25 tabs mirtazapine 30 mg tablet (Remeron) 30 mg PO .HS #30 tabs 02/05/25 naltrexone microspheres 380 mg 380 mg IM .[id number] #1 ea 02/14/25 intramuscular suspension,extended release metoclopramide HCl 10 mg tablet 10 mg PO Q6H PRN nausea and 02/24/25 (Reglan) vomiting #14 tabs sucralfate 1 gram tablet (Carafate) 1 g PO Q6H 2 weeks #56 tabs 02/24/25 Allergies Allergy/AdvReac Type Severity Reaction Status Date / Time acamprosate Allergy Intermediate ADR-Depress Verified 02/14/25 14:21 ion piperacillin (From Zosyn) Allergy ADR-Swelling Verified 02/14/25 14:21 of the Eye tazobactam (From Zosyn) Allergy ADR-Swelling Verified 02/14/25 14:21 of the Eye Review of Systems Const: Denies: fever(s), chills, body aches or change in appetite ENMT: Denies: throat pain or dental pain Card: Reports: chest pain Resp: Denies: dyspnea GI: Reports: abdominal pain; Denies: nausea, vomiting or diarrhea Musc: Denies: neck pain or back pain Skin/Breast: Denies: rash Neuro: Denies: headache(s) PFSH ED PFSH: Medical History History of ADHD Alcohol dependence Generalized anxiety disorder Cannabis use disorder Pseudocyst, pancreas Abdominal pain Acute pancreatitis Drug allergy Acute chest wall pain Acute pancreatitis Psychiatric care Tobacco use Hypomagnesemia Hepatomegaly Transaminitis Alcohol intoxication Alcoholism Esophagitis Alcohol intoxication Acute pancreatitis Pseudocyst of pancreas Polysubstance abuse History of suicide attempt C7 cervical fracture C2 cervical fracture L4 vertebral fracture Alcohol abuse PTSD (post-traumatic stress disorder) Elevated transaminase level Pancreatitis, alcoholic, acute Surgical History History of appendectomy History of splenectomy Family History Other Diabetes Social History Smoking and tobacco/nicotine status: current every day tobacco/nicotine user Alcohol intake: current Alcohol intake frequency: 3 or more drinks per day Alcohol type: hard liquor Substance/Drug Use: current Substance/Drug use frequency: daily Adopted: No Caregiver/support person: No Lives independently: No Household members: significant other Marital status: Number of children: 4 Highest education level completed: 12th Grade, No Diploma Current occupational status: unemployed Pets and animals: Yes Leisure activites: other Leisure activities details: None at this time Sexually active: Yes Do you think of yourself as: Straight/Heterosexual Current gender identity: Male Mary Lou/Protestant: Mormonism Special mary lou needs: No Agree to transfusion: Yes Physical Exam Const: COMMON NORMALS: no acute distress, patient oriented x3 and healthy appearing HENMT: COMMON NORMALS: normocephalic and atraumatic HEAD & SCALP: normocephalic and atraumatic Eye: COMMON NORMALS: Equal, round and reactive pupils present and EOMs intact bilaterally PUPIL: Yes Equal, round and reactive pupils present Neck/C-Spine: COMMON NORMALS: full ROM and supple Chest: COMMONS NORMALS: normal inspection of the chest Resp: COMMON NORMALS: normal respiratory effort, No retractions, No use of accessory muscles and clear to auscultation bilaterally AUSCULTATION: clear to auscultation bilaterally Cardio: COMMON NORMALS: regular rate, regular rhythm and No murmurs present (Cardio) RATE: regular rate RHYTHM: regular rhythm GI: COMMON NORMALS: Normal to inspection, nondistended, normoactive bowel sounds present, Soft to palpation, non-tender and no masses PALPATION: Yes Soft to palpation Extremity: COMMON NORMALS: normal to inspection and full ROM Neuro: COMMON NORMALS: patient oriented x3, moves all extremities and no focal motor deficits Psych: COMMON NORMALS: mental status grossly normal, Normal thought process present and cooperative THOUGHT PROCESS: Normal thought process present Skin: COMMON NORMALS: no rashes or lesions noted and no wounds GENERAL SKIN EXAM: no rashes or lesions noted Course Vital Signs: Vital signs: Vital Signs Temperature 98.3 F 02/26/25 12:23 Pulse Rate 75 02/26/25 13:38 Respiratory Rate 16 02/26/25 13:38 Blood Pressure 154/108 02/26/25 13:38 Pulse Oximetry 100 02/26/25 13:38 Oxygen Delivery Me thod Room Air 02/26/25 13:38 MDM - Chest Pain Medical Decision Making Patient presents here with chest abdominal pain did have an elevated bilirubin he does have hep B likely causing this no other acute findings found his pain is improved he stable for discharge follow-up PCP return if worsening. Medical Records I reviewed the patient's medical records. Lab Data I reviewed the patient's lab results. 02/26/25 12:35 02/26/25 12:35 Radiology Impressions Chest X-Ray 02/26/25 12:24 IMPRESSION: No acute findings. Abdomen/Pelvis CT 02/26/25 13:14 IMPRESSION: 1. Approximately 4 cm pancreatic head cyst, likely pseudocyst, with slight decrease in size from prior exam 05/29/2024. Previously noted cyst or pseudocyst at the junction of the pancreatic head and body with prior exam is no longer seen. 2. Edema about the pancreatic head and adjacent duodenum is again seen, which could reflect pancreatitis of the head of the pancreas and/or duodenitis. 3. Mild mucosal edema versus more likely appearance related to incomplete distension of the transverse colon. Gastric thickening versus more likely appearance related to incomplete gastric distension. 4. Mild urinary bladder wall thickening, nonspecific, and may reflect incomplete distension. Correlate with urinalysis otherwise. 5. Previous splenectomy and history of previous appendectomy. Laboratory Results WBC 7.59 10^3/uL (3.29-11.43) 02/26/25 12:35 RBC 4.25 10^6/uL (3.85-5.65) 02/26/25 12:35 Hgb 14.00 g/dL (11.27-16.99) 02/26/25 12:35 Hct 41.0 % (37-53) 02/26/25 12:35 MCV 96.5 fl (82-101) 02/26/25 12:35 MCH 32.9 pg (27-33) 02/26/25 12:35 MCHC 34.1 g/dL (30-55) 02/26/25 12:35 RDW 13.5 % (12.1-15.1) 02/26/25 12:35 Plt Count 297 10^3/cmm (157-399) 02/26/25 12:35 MPV 9.2 fL (7.4-10.4) 02/26/25 12:35 Neut % (Auto) 62.6 % 02/26/25 12:35 Lymph % (Auto) 21.7 % 02/26/25 12:35 [place] % (Auto) 11.7 % 02/26/25 12:35 Eos % (Auto) 2.5 % 02/26/25 12:35 Baso % (Auto) 1.1 % 02/26/25 12:35 Neut # (Auto) 4.75 10^3/uL (1.8-7.7) 02/26/25 12:35 Lymph # (Auto) 1.7 10^3/uL (0.8-4.8) 02/26/25 12:35 [place] # (Auto) 0.9 10^3/uL (0.2-0.9) 02/26/25 12:35 Eos # (Auto) 0.2 10^3/uL (0.0-0.8) 02/26/25 12:35 Baso # (Auto) 0.1 10^3/uL (0.0-0.1) 02/26/25 12:35 Nucleated RBC % (auto) 0 % 02/26/25 12:35 Nucleated RBCs # 0.0 /100WBC 02/26/25 12:35 Sodium 133 mmol/L (136-145) L 02/26/25 12:35 Potassium 3.8 mmol/L (3.5-5.1) 02/26/25 12:35 Chloride 96 mmol/L (98-107) L 02/26/25 12:35 Carbon Dioxide 21 mmol/L (22-29) L 02/26/25 12:35 Anion Gap 19.8 (5-19) H 02/26/25 12:35 BUN 7 mg/dL (6-20) 02/26/25 12:35 Creatinine 0.4 mg/dL (0.7-1.2) L 02/26/25 12:35 GFR Calculation 240.7 mL/min (90-130) H 02/26/25 12:35 Glucose 100 mg/dL (65-115) 02/26/25 12:35 Calculated Osmolality 274 mOsm/kg (285-295) L 02/26/25 12:35 Calcium 9.2 mg/dL (8.5-10.5) 02/26/25 12:35 Total Bilirubin 7.1 mg/dL (0.15-1.2) H* 02/26/25 12:35 AST 95 U/L (0-40) H 02/26/25 12:35 ALT 84 U/L (0-41) H 02/26/25 12:35 Alkaline Phosphatase 287 U/L (40-130) H 02/26/25 12:35 Troponin T Baseline < 6 ng/L (0-15) 02/26/25 12:35 Total Protein 6.9 g/dL (6.6-8.7) 02/26/25 12:35 Albumin 4.2 g/dL (3.5-5.2) 02/26/25 12:35 Globulin 2.7 g/dL (1.3-4.6) 02/26/25 12:35 Lipase 33 U/L (13-60) 02/26/25 12:35 Ethyl Alcohol < 10 mg/dL (0-10) 02/26/25 12:35 Hepatitis A IgM Ab Non-reactive (Nonreactive) 02/26/25 12:35 Hep Bs Antigen Non-reactive (Nonreactive) 02/26/25 12:35 Hep Bs Antibody > 1000.0 (11.5-1000) H 02/26/25 12:35 Hep B Core Total Ab Non-reactive (Nonreactive) 02/26/25 12:35 Hepatitis C Antibody Non-reactive (Nonreactive) 02/26/25 12:35 All radiology interpretation(s) finalized by discharge EKG Data EKG 1: I personally reviewed and interpreted this EKG as follows: EKG interpretation date: 02/26/25 EKG interpretation time: 12:26 Interpretation: nsr hr [address] or t wave abnormalities qrs 103 qtc 435 Discharge Plan Discharge Patient Disposition: Home Clinical Impression: Hepatitis B Condition: Stable Prescriptions: No Action aspirin [Children's Aspirin] 81 mg tablet,chewable 81 mg PO DAILY lisinopril 20 mg tablet 20 mg PO DAILY naltrexone microspheres 380 mg suspension,extended rel recon 380 mg IM .[id number] Qty: 1 3RF Creon 12,000-38,000 -60,000 unit capsule,delayed release(DR/EC) 1 cap PO TID Rx Instructions: administer with meals and/or snacks pregabalin [Lyrica] 25 mg capsule 25 mg PO DAILY buspirone 15 mg tablet 30 mg PO BID Qty: 60 2RF varenicline tartrate [Chantix Continuing Month Box] 1 mg tablet 1 mg PO BID Qty: 56 2RF atomoxetine 60 mg capsule 60 mg PO DAILY Qty: 30 2RF sertraline [Zoloft] 100 mg tablet 150 mg PO DAILY Qty: 45 2RF mirtazapine [Remeron] 30 mg tablet 30 mg PO .HS Qty: 30 2RF levocetirizine 5 mg tablet 5 mg PO DAILY magnesium 250 mg tablet 250 mg PO .QOD folic acid 1 mg Tablet 1 mg PO DAILY Qty: 90 0RF thiamine mononitrate (vit B1) [Vitamin B-1 (mononitrate)] 100 mg Tablet 100 mg PO DAILY Qty: 90 0RF pantoprazole [Protonix] 40 mg tablet,delayed release (DR/EC) 40 mg PO DAILY Qty: 10 0RF sucralfate [Carafate] 1 gram tablet 1 g PO Q6H 14 Days Qty: 56 0RF metoclopramide HCl [Reglan] 10 mg tablet 10 mg PO Q6H PRN (Reason: nausea and vomiting) Qty: 14 0RF Discharge Orders: Discharge ED (Routine); Ordered 02/26/25 Ordered By: Hannah Feliciano Referrals: Mahamed Sales MD [Primary Care Provider, Family Practice] - 4-7 days Discharge Diet: Advance as tolerated Discharge Activity: Resume usual activity Patient Instructions: Hepatitis B (ED) Print Language: Chinese Coding Level of Care Code ED Stage Hand for Marko Avery
--- OUTSIDE RECORDS SUMMARY | 2025-02-26 12:28 | XMS_ITS | Clinical Summary ---
Author Organization [facility] Address [address] [facility] Attn: Epic Prelude ADT CARLA SCHULER [address] Care Team Providers Care Groundman Name Role Phone Mahamed Sales MD Primary Care Provider [phone] Allergies Active Allergy Reactions Criticality Noted Date [...] mouth daily. Active naloxone (NARCAN) 4 mg/spray Abernathy, Non-Aerosol EMERGENCY USE ONLY: Administer 1 spray [...] Data STL ABSTRACTION Provider, Abstract 02/08/2025 Refill [facility] Gastroenterology- [place] [address] [facility] [phone] Josh Sanchez MD 02/07/2025 External Device Data STL ABSTRACTION Provider, Abstract 02/07/2025 External Device Data STL ABSTRACTION Provider, Abstract 01/18/2025 External Device Data STL ABSTRACTION Provider, Abstract 01/17/2025 External Device Data STL ABSTRACTION Provider, Abstract 01/17/2025 External Device Data STL ABSTRACTION Provider, Abstract 01/11/2025 11:36 PM CDT - 01/14/2025 6:21 PM CDT Hospital Encounter [facility] Medical Telemetry [address] [place] [address] Davidson Beatty MD Sundaram, Vignesh, MD Chilukuri, Ramya Sree, MD Acute on chronic pancreatitis (CMS/HCC) Discharge Disposition: Left Against Medical Advice 01/11/2025 11:04 AM CDT - 01/11/2025 9:55 PM CDT Emergency [facility] Emergency Medicine [address] [place] [address] Faith Knight MD Acute on chronic pancreatitis (CMS/HCC) (Primary Dx); Pancreatic pseudocyst Discharge Disposition: Acute Care Hospital 01/11/2025 - 01/11/2025 11:59 PM CDT Hospital Encounter [facility] Emergency Medical Services [place] [address] [place] [address] Faith Knight MD Ambulance, [facility] Discharge Disposition: [facility] 01/11/2025 Travel 01/10/2025 External Device Data STL ABSTRACTION Provider, Abstract 01/10/2025 External Device Data STL ABSTRACTION Provider, Abstract 01/10/2025 External Device Data STL ABSTRACTION Provider, Abstract 01/10/2025 External Device Data STL ABSTRACTION Provider, Abstract 01/03/2025 External Device Data STL ABSTRACTION Provider, Abstract 01/03/2025 [facility] [address] [facility] [facility] [address] [phone] Josh Sanchez MD 12/22/2024 9:15 AM CDT - 12/22/2024 11:59 PM CDT Hospital Encounter [facility] Pain [facility] Procedures [place] [address] [facility] [place] [address] Ozzy Wiggins FNP Discharge Disposition: Home or Self Care 12/22/2024 8:48 AM CDT - 12/22/2024 11:59 PM CDT Hospital Encounter [facility] Pain Management Procedures [place] [address] [facility] [place] [phone] Baldo Blas MD Discharge Disposition: Home or Self Care 12/13/2024 External Device Data STL ABSTRACTION Provider, Abstract 12/13/2024 External Device Data STL ABSTRACTION Provider, Abstract 12/13/2024 External Device Data STL ABSTRACTION Provider, Abstract 12/12/2024 5:32 PM CDT - 12/12/2024 8:21 PM CDT Emergency [facility] Emergency Medicine [address] [place] [address] Glynn Austin MD 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 [place] [address] Lacie Summers PA [phone] 03/27/2025 10:20 AM CDT Office Visit [facility] Gastroenterology- [place] [phone] Josh Sanchez MD [address] [facility] [phone] Health Maintenance Due Date Last Done [...] - 11.0 K/uL 01/13/2025 6:37 AM T [facility] RBC 4.09(L) 4.60 - 6.20 M/uL 01/13/2025 6:37 AM T [facility] HEMOGLOBIN 14.0 14.0 - 18.0 g/dL 01/13/2025 6:37 AM CDT [facility] HEMATOCRIT 39.7(L) 41.0 - 53.0 % 01/13/2025 6:37 AM CDT [facility] MCV 97.1 84.0 - 103.0 fL 01/13/2025 6:37 AM CDT [facility] MCH 34.2(H) 27.0 - 34.0 pg 01/13/2025 6:37 AM CDT [facility] MCHC 35.3(H) 30.0 - 35.0 g/dL 01/13/2025 6:37 AM [facility] PLATELETS 227 140 - 440 K/uL 01/13/2025 6:37 AM [facility] MPV 8.9 8.9 - 12.8 fL 01/13/2025 6:37 AM [facility] RDW 12.7 11.0 - 14.5 % 01/13/2025 6:37 AM [facility] RDW-STDEV 45.9 37.0 - 54.0 fL 01/13/2025 6:37 AM [facility] NEUTROPHILS 50 42 - 75 % 01/13/2025 6:37 AM [facility] LYMPHOCYTES 31 24 - 44 % 01/13/2025 6:37 AM [facility] MONOCYTES 10 2 - 10 % 01/13/2025 6:37 AM [facility] EOSINOPHILS 8(H) 0 - 7 % 01/13/2025 6:37 AM [facility] BASOPHILS 1 0 - 1 % 01/13/2025 6:37 AM [facility] IMMATURE GRANULOCYTES 0 0 - 2 % 01/13/2025 6:37 AM [facility] NEUTROPHIL ABSOLUTE 4.12 2.00 - 8.00 K/uL 01/13/2025 6:37 AM [facility] LYMPHOCYTE ABSOLUTE 2.60 1.20 - 4.00 K/uL 01/13/2025 6:37 AM [facility] MONOCYTE ABSOLUTE 0.79(H) 0.10 - 0.60 K/uL 01/13/2025 6:37 AM [facility] EOSINOPHIL ABSOLUTE 0.65 0.00 - 0.70 K/uL 01/13/2025 6:37 AM [facility] BASOPHILS ABSOLUTE 0.09 0.00 - 0.20 K/uL 01/13/2025 6:37 AM [facility] IMMATURE GRANULOCYTES ABSOLUTE 0.03 0.00 - 0.10 K/uL 01/13/2025 6:37 AM CDT [facility] SMEAR REVIEWED: NA - Not Applicable 01/13/2025 6:37 AM CDT [facility] Blood Venipuncture / Unknown 01/13/2025 6:27 AM CDT 01/13/2025 6:31 AM CDT Amador Hernandez MD HEMATOLOGY ORDERABLES Final Result Performing Organization Address City/[facility] Co de Phone Number [facility] CLIA # [id number] [facility] [address] [place] [address] * MAGNESIUM LEVEL (01/13/2025 6:26 AM CDT) Only the most recent of3 resultswithin the time period is included. MAGNESIUM 1.8 1.6 - 2.6 mg/dL 01/13/2025 7:07 AM CDT [facility] Blood Venipuncture / Unknown 01/13/2025 6:26 AM CDT 01/13/2025 6:31 AM CDT Amador Hernandez MD CHEMISTRY ORDERABLES Final R esult Performing Organization Address [facility] de Phone Number [facility] CLIA # [id number] [address] [address] * (ABNORMAL) COMPREHENSIVE METABOLIC PANEL (01/13/2025 6:26 AM CDT) Only the most recent of4 resultswithin the time period is included. SODIUM 137 136 - 145 mmol/L 01/13/2025 7:07 AM CDT [facility] POTASSIUM 3.8 3.5 - 5.1 mmol/L 01/13/2025 7:07 AM CDT [facility] CHLORIDE 102 98 - 107 mmol/L 01/13/2025 7:07 AM [facility] CO2 24 22 - 29 mmol/L 01/13/2025 7:07 AM [facility] CALCIUM 9.0 8.6 - 10.0 mg/dL 01/13/2025 7:07 AM [facility] BUN 6 6 - 20 mg/dL 01/13/2025 7:07 AM [facility] CREATININE 0.65(L) 0.67 - 1.17 mg/dL 01/13/2025 7:07 AM [facility] GLUCOSE 108(H) 74 - 99 mg/dL 01/13/2025 7:07 AM [facility] TOTAL PROTEIN 6.5 6.4 - 8.3 g/dL 01/13/2025 7:07 AM [facility] ALBUMIN 3.7 3.5 - 5.2 g/dL 01/13/2025 7:07 AM [facility] BILIRUBIN TOTAL 0.4 0.0 - 1.0 mg/dL 01/13/2025 7:07 AM [facility] ALKALINE PHOSPHATASE 141(H) 40 - 129 U/L 01/13/2025 7:07 AM [facility] AST 54(H) 10 - 50 U/L 01/13/2025 7:07 AM [facility] ALT 83(H) <=50 U/L 01/13/2025 7:07 AM [facility] GFR >60 >=60 mL/min/1. 73 sq meter 01/13/2025 7:07 AM [facility] Comment:eGFR calculated with 2020 CKD-EPI equation. Vegetarian diet, extremely high or low muscle mass, and may affect results. Cystatin C with Glomerular Filtration Rate is a suitable alternative for these patients. ANION GAP 11 9 - 20 mmol/L 01/13/2025 7:07 AM [facility] Blood Venipuncture / Unknown 01/13/2025 6:26 AM [facility] 01/13/2025 6:31 AM CDT Amador Hernandez MD CHEMISTRY ORDERABLES Final R esult [facility] [employer] [facility] CLIA # [id number] [address] [facility] [place], [place] [id number] * PROTIME-INR (01/12/2025 7:13 AM CDT) Only the most recent of2 resultswithin the time period is included. PROTIME 13.1 12.7 - 14.9 Seconds 01/12/2025 7:40 AM CDT [facility] [employer] [facility] INR 0.9 0.8 - 1.2 01/12/2025 7:40 AM CDT [facility] [employer] [facility] Blood Venipuncture / Unknown 01/12/2025 7:13 AM CDT 01/12/2025 7:27 AM CDT Narrative [facility] [employer] [facility] - 01/12/2025 7:40 AM CDT Expected Values for INR: DVT/PE Goal INR 2.5; range 2.0 - 3.0 Valve Replacement Tissue Goal INR 2.5; range 2.0 - 3.0 Valve Replacement Mechanical Goal INR 3.0; range 2.5 - 3.5 POST-CO Goal INR 2.5; range 2.0 - 3.0 or Goal INR 3.0; range 2.5 - 3.5 Atrial Fibrillation Goal INR 2.5; range 2.0 - 3.0 Ischemic Stroke Goal INR 2.5; range 2.0 - 3.0 us Amador Hernandez MD HEMATOLOGY ORDERABLES Final Result [facility] CLIA # [id number] [address] [place] [address] * CT ABDOMEN PELVIS W CONTRAST (01/11/2025 [...] - 60 U/L 01/11/2025 12:03 PM CDT [facility] Blood BLOOD SPECIMEN / Unknown Collection / Unknown 01/11/2025 11:15 AM CDT 01/11/2025 11:38 AM CDT Faith Knight MD CHEMISTRY ORDERABLES Final R esult [facility] CLIA # [id number] [address] [place] [address] * XR FLUORO NEEDLE GUIDANCE SPINE (12/22/2024 [...] ED 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 Rate: ECG rate: 103 ECG rate assessment: tachycardic Rhythm: Rhythm Origin: sinus Intervals: normal QRSTT: QRSTT changes: No R wave transition: Good Glynn Austin MD ECG ORDERABLES Final Result * TROPONIN BASELINE, 5TH GEN (12/12/2024 5:34 PM CDT) TROPONIN T, BASELINE 5TH GEN <6 <=15 ng/L 12/12/2024 6:04 PM CDT [facility] Blood Collection / Unknown 12/12/2024 5:34 PM CDT 12/12/2024 5:43 PM CDT Narrative [facility] - 12/12/2024 6:04 PM CDT Troponin Undetectable us Glynn Austin MD CHEMISTRY ORDERABLES Final Resu lt Performing Organization Address [facility]/ZIP Co de Phone Number [facility] CLIA # [id number] [address] [place] [phone] * LACTIC ACID (12/12/2024 5:34 PM CDT) LACTIC ACID 2.0 <=2.0 mmol/L 12/12/2024 5:59 PM CDT [facility] Blood BLOOD SPECIMEN / Unknown Collection / Unknown 12/12/2024 5:34 PM CDT 12/12/2024 5:43 PM CDT us Glynn Austin MD CHEMISTRY ORDERABLES Final Resu lt Performing Organization Address [facility] Co de Phone Number [facility] CLIA # [id number] [address] [place] [address] * (ABNORMAL) PTT (12/12/2024 5:34 PM CDT) PTT 23.0(L) 25.8 - 34.0 seconds 12/12/2024 5:55 PM CDT [facility] Blood Collection / Unknown 12/12/2024 5:34 PM CDT 12/12/2024 5:43 PM CDT us Glynn Austin MD HEMATOLOGY ORDERABLES Final Res ult Performing Organization Address [facility] Co de Phone Number [facility] CLIA # [id number] [address] [place] [address] * SEDIMENTATION RATE (12/12/2024 5:34 PM CDT) ESR (SEDIMENTATION RATE) 5 0 - 15 mm/Hr 12/12/2024 5:56 PM CDT [facility] Blood Collection / Unknown 12/12/2024 5:34 PM CDT 12/12/2024 5:43 PM CDT [facility] - 12/12/2024 5:56 PM CDT Tube Lot: [id number] Exp Date: 05/02/2026 SR 0125-1 EXP. 02/04/25 SR 0125-2 EXP. 02/04/25 Glynn Austin MD HEMATOLOGY ORDERABLES Final Res ult Performing Organization Address City/[facility]/ZIP Co de Phone Number [facility] CLIA # [id number] [address] [place] [address] * (ABNORMAL) D-DIMER (12/12/2024 5:34 PM CDT) D-DIMER QUANT 1.00(H) <0.50 ug/mL FEU 12/12/2024 5:59 PM CDT [facility] Blood Collection / Unknown 12/12/2024 5:34 PM CDT 12/12/2024 5:43 PM CDT [facility] - 12/12/2024 5:59 PM CDT D-Dimer assay cutoff value for exclusion of DVT and/or PE is <0.50 ug/mL FEU. Glynn Austin MD HEMATOLOGY ORDERABLES Final Res ult [facility] CLIA # [id number] [address] [place] [address] * C-REACTIVE PROTEIN (12/12/2024 5:34 PM CDT) CRP <3.0 <5.0 mg/L 12/12/2024 6:0 4 PM CDT [facility] Blood Collection / Unknown 12/12/2024 5:34 PM CDT 12/12/2024 5:43 PM CDT us Glynn Austin MD CHEMISTRY ORDERABLES Final Resu lt Performing Organization Address [facility]/ZIP Co de Phone Number [facility] CLIA # [id number] [address] [place] [address] * TSH (12/12/2024 5:34 PM CDT) TSH 1.98 0.27 - 4.20 uIU/mL 12/12/2024 6:07 PM CDT [facility] Blood Collection / Unknown 12/12/2024 5:34 PM CDT 12/12/2024 5:43 PM CDT us Glynn Austin MD CHEMISTRY ORDERABLES Final Resu lt Performing Organization Address [facility] de [facility] Number [id number] [address] [place] [address] * BRAIN NATRIURETIC PEPTIDE, BNP OR PROBNP (12/12/2024 5:34 PM CDT) PROBNP, N TERMINAL <36 0 - 125 pg/mL 12/12/2024 6:04 PM CDT [facility] Comment: INTERPRETIVE COMMENT based on diagnosis: Diagnostic [...] Austin MD CHEMISTRY ORDERABLES Final Resu lt [facility] CLIA # [id number] [address] [place] [address] * (ABNORMAL) AMYLASE (12/12/2024 5:34 PM CDT) AMYLASE 196(H) 28 - 100 U/L 12/12/2024 6:10 PM CDT [facility] Blood BLOOD SPECIMEN / Unknown Collection / Unknown 12/12/2024 5:34 PM CDT 12/12/2024 5:57 PM CDT us Glynn Austin MD CHEMISTRY ORDERABLES Final Resu lt Performing Organization Address [facility] Co de Phone Number [facility] CLIA # [id number] [address] [place] [address] * (ABNORMAL) ETHANOL LEVEL (12/12/2024 5:34 PM CDT) ETHANOL 199.00(H) <10.10 mg/dL 12/12/2024 6:04 PM CDT [facility] ETHANOL % 0.20 %w/v 12/12/2024 6:04 PM CDT [facility] Blood Collection / Unknown 12/12/2024 5:34 PM CDT 12/12/2024 5:43 PM CDT us Glynn Austin MD CHEMISTRY ORDERABLES Final Resu lt [facility] CLIA # [id number] [address] [place] [address] from Last 3 Months Insurance [facility] MEDICAID RX INFOCROSSING Medicaid RX [employer] [employer] (INTERNAL) [facility] Internal Plans Advance Directives For more information, please contact: [phone] * Full Code (Latest Code Status on [...] 5:29 PM 01/09/2024 6:14 PM Care Teams Groundman Relationship Specialty Start Date End Date Mahamed Sales MD [address] [address] PCP - General Family Practice 06/17/24
--- OUTSIDE RECORDS SUMMARY | 2025-02-26 12:28 | XMS_ITS | Clinical Summary ---
Author Organization [facility] Address [address] [place] [address] Phone Care Team Providers Care Computer Programming Professor Name Role Phone Unavailable Primary Care Provider [...]
--- OUTSIDE RECORDS SUMMARY | 2025-02-26 12:28 | XMS_ITS | Encounter Summary ---
Author Organization [facility] Address 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 Gender Identity Not on file Sexual Orientation Not on file documented as of this encounter Plan of Treatment Upcoming Encounters Date Type Department Care Team (Late st Contact Info) Description 03/08/2025 1:00 PM CDT Office Visit [facility] [address] [place] [address] Lacie Summers PA [address] [place] [address] 03/27/2025 10:20 AM CDT Office Visit [facility] Gastro[facility]ology- [place] [address] [facility] [address] [place] [address] Josh Sanchez MD [address] [facility] [place] [place] [phone] documented as of this encounter Visit Diagnoses Not on filedocumented in this encounter Care Teams Airplane Tester Relationship Specialty Start Date End Date Mahamed Sales MD [address] [phone] PCP - General Family Practice 06/17/24 documented as of this encounter
[2025-02-26 12:47] LABS: Hematocrit 41.0 % (37-53); Hemoglobin 14.00 g/dL (11.27-16.99); Mean Corpuscular HGB Conc 34.1 g/dL (30-55); Mean Corpuscular Hemoglobin 32.9 pg (27-33); Mean Corpuscular Volume 96.5 fl (82-101); Nucleated Red Blood Cells % 0 %; Platelet Count 297 10^3/cmm (157-399); Red Blood Count 4.25 10^6/uL (3.85-5.65); White Blood Count 7.59 10^3/uL (3.29-11.43)
[2025-02-26] MEDS: diphenhydrAMINE 50 mg/mL SDV 1mL IVP (12:49)
[2025-02-26] MEDS: metoclopramide 5 mg/mL SDV 2 mL 10 MG IVP (12:50)
[2025-02-26 12:54] VITALS: BP 151/108; PULSE 79; O2SAT 97
[2025-02-26 12:58] LABS: Troponin(5th) Baseline < 6 ng/L (0-15)
[2025-02-26 13:02] LABS: Alanine Aminotransferase 84 U/L (0-41); Albumin Level 4.2 g/dL (3.5-5.2); Alkaline Phosphatase 287 U/L (40-130); Aspartate Amino Transferase 95 U/L (0-40); Blood Urea Nitrogen 7 mg/dL (6-20); Calcium 9.2 mg/dL (8.5-10.5); Carbon Dioxide 21 mmol/L (22-29); Chloride 96 mmol/L (98-107); Creatinine Clr Calc Pharmacy 273.1078; Globulin 2.7 g/dL (1.3-4.6); Glucose 100 mg/dL (65-115); Lipase 33 U/L (13-60); Osmolality Calculated 274 mOsm/kg (285-295); Sodium 133 mmol/L (136-145); Total Protein 6.9 g/dL (6.6-8.7)
[2025-02-26 13:04] LABS: Anion Gap 19.8 (5-19); Potassium 3.8 mmol/L (3.5-5.1)
--- NOTE | 2025-02-26 13:14 | CTR_ITS ---
PROCEDURE INFORMATION: Exam: CT Abdomen And Pelvis With Contrast Exam date and time: 02/26/2025 1:25 PM Age: 39 years old Clinical indication: Abdominal pain; Prior surgery; Surgery date: 6+ months; Surgery type: Spleen; Additional info: Abd pain TECHNIQUE: Imaging protocol: Computed tomography of the abdomen and pelvis with contrast. Radiation optimization: All CT scans at this facility use at least one of these dose optimization techniques: automated exposure control; mA and/or kV adjustment per patient size (includes targeted exams where dose is matched to clinical indication); or iterative reconstruction. Contrast material: OMNI 350; Contrast volume: 100 ml; Contrast route: INTRAVENOUS (IV); COMPARISON: CT kidney stone [id number] 01/25/2024 3:54 AM RADIATION DOSE METRICS: Total DLP (mGy-cm): 609.44 FINDINGS: Lungs: Minimal basilar atelectasis. Liver: Normal. No mass. Gallbladder and biliary ducts: Gallbladder is well distended. No calcified gallstones are seen. No significant biliary ductal dilatation. Pancreas: 4 cm cyst pancreatic head, slightly decreased in size from prior exam 05/29/2024 with previous measurement of 4.8 cm. This results in increased size of the pancreatic head, as noted with prior exam. Previously noted 3 cm cyst at the junction of the pancreatic head and body with prior exam is no longer seen. Edema about pancreatic head and adjacent duodenum is seen, similar to prior exam. A component of pancreatitis of the head of the pancreas and/or duodenitis could be present. Spleen: Previous splenectomy. Adrenal glands: Normal. No mass. Kidneys and ureters: Normal. No hydronephrosis. Stomach and bowel: No bowel obstruction. Mild mucosal edema versus appearance related to incomplete distension of the transverse colon. No pericolonic mesenteric stranding. Gastric thickening versus more likely incomplete gastric distension. Appendix: History of previous appendectomy. No secondary signs to indicate appendicitis otherwise. Intraperitoneal space: No free fluid or ascites. No free air. Vasculature: Unremarkable. No abdominal aortic aneurysm. Lymph nodes: Unremarkable. No enlarged lymph nodes. Urinary bladder: Mild urinary bladder wall thickening may reflect incomplete distension though correlate with urinalysis regarding cystitis otherwise. Reproductive: Prostate gland appears upper limits of normal. Bones/joints: Mild spondylotic change lower lumbar spine. No acute osseous abnormality. Soft tissues: Small fat containing inguinal hernias, as noted with prior exam. CT/CT abdomen pelvis w con* [id number] IMPRESSION: 1. Approximately 4 cm pancreatic head cyst, likely pseudocyst, with slight decrease in size from prior exam 05/29/2024. Previously noted cyst or pseudocyst at the junction of the pancreatic head and body with prior exam is no longer seen. 2. Edema about the pancreatic head and adjacent duodenum is again seen, which could reflect pancreatitis of the head of the pancreas and/or duodenitis. 3. Mild mucosal edema versus more likely appearance related to incomplete distension of the transverse colon. Gastric thickening versus more likely appearance related to incomplete gastric distension. 4. Mild urinary bladder wall thickening, nonspecific, and may reflect incomplete distension. Correlate with urinalysis otherwise. 5. Previous splenectomy and history of previous appendectomy.
--- NOTE | 2025-02-26 13:14 | USR_ITS ---
PROCEDURE INFORMATION: Exam: US Abdomen, Limited; Right Upper Quadrant Exam date and time: 02/26/2025 2:16 PM Age: 39 years old Clinical indication: Abdominal pain; Generalized; Prior surgery; Surgery date: 6+ months; Surgery type: Spleen removed and part of pancreas; Additional info: Abd pain TECHNIQUE: Imaging protocol: Real time ultrasound of the abdomen with image documentation. Limited exam focused on the right upper quadrant. COMPARISON: US gall bladder [id number] 03/01/2023 5:43 PM FINDINGS: Liver: Right lobe of the liver measures 16.4 cm. Mild increased echogenic appearance of the liver in relation to the cortex of the right kidney which could be technical or indicate mild fatty infiltration. No focal abnormality is seen otherwise. No intrahepatic ductal dilatation. Gallbladder: No echogenic shadowing gallstone is seen within the gallbladder. Gallbladder wall measures 3 mm. No pericholecystic fluid/edema is seen. Biliary ducts: Common bile duct measures 5 mm. Pancreas: Pancreas is not well-visualized. Hypoechoic to anechoic cystic appearing area head of the pancreas region as noted on CT exam, measuring 4.1 x 4.1 x 4.5 cm. This likely represents pseudocyst. Right kidney: Right kidney measures 10.4 x 4.8 x 5.4 cm with renal cortical thickness of 1.1 cm. No hydronephrosis to indicate obstruction. No significant focal abnormality. Inferior vena cava: IVC measures 1.7 cm and visualized abdominal aorta measures 1.6 cm. Portal venous: Hepatopetal portal venous flow. Intraperitoneal space: No free fluid is seen in the right upper quadrant. US/US gall bladder [id number] IMPRESSION: 1. Pancreas not well visualized, though with cystic appearing structure head of the pancreas as noted on CT exam, likely pancreatic pseudocyst. This measures 4.1 x 4.1 x 4.5 cm. 2. Mild increased echogenic appearance of the liver in relation to the cortex of the right kidney. This could be technical or indicate mild fatty infiltration. 3. No acute findings otherwise. No sonographic findings of cholelithiasis.
[2025-02-26] MEDS: iohexol 350 mg/mL 500 mL Btl (per mL) IV (13:28)
--- NOTE | 2025-02-26 13:30 | PC.PHAR ---
Pt has a medication list but several of them are over due for refill. He says he takes them daily. Pt is allergic to acamprosate.
[2025-02-26 13:38] VITALS: BP 154/108; PULSE 75; RESP 16; O2SAT 100
[2025-02-26 13:39] LABS: Alcohol Level < 10 mg/dL (0-10)
[2025-02-26 13:58] LABS: Hepatitis A Antibody IgM Non-Reactive (Nonreactive); Hepatitis B Surface Antigen Non-Reactive (Nonreactive)
[2025-02-26 15:09] LABS: Troponin 5 2HR < 6.0 ng/L (0-15); Troponin 5 2HR Delta 0 ABS# (0-10)
[2025-02-26] MEDS: morphine 4 mg/mL SDV 1 mL IVP (15:13)
[2025-02-26] MEDS: HYDROcodone-acetaminophen 5-325 mg Tablet 1 TAB PO (15:13)
[2025-02-26 15:35] VITALS: BP 139/93; PULSE 76; RESP 16; O2SAT 100
== END 2025-02-26 15:28 | disposition home or self-care (01) ==
PROVIDERS: Emergency Provider Emergency Medicine; PCP Family Medicine
DX: B19.10 Unspecified viral hepatitis B without hepatic coma (principal); Z79.82 Long term (current) use of aspirin
CPT/HCPCS: 36415; 71045; 74177; 76705; 80053; 80307; 83690; 84484; 85025; 86705; 86706; 86709; 86803; 87340; 93005; 96374; 96375; 99285; J1200; J2270; J2765; J9999

== ENCOUNTER 2025-04-14 09:11 | Observation (INO) | payer OTHER, MEDICAID, SELFPAY ==
[2024-10-17 10:25] VITALS: BP 134/102; BMI 27.0
[2025-04-14] VITALS (22 sets, daily range): BP systolic 119–157; BP diastolic 77–109; PULSE 68–90; RESP 12–18; TEMP 36.6–36.9; O2SAT 96–100; BMI 22.6
--- NOTE | 2025-04-14 09:13 | XRR_ITS ---
PROCEDURE INFORMATION: Exam: XR Chest Exam date and time: 04/14/2025 9:19 AM Age: 39 years old Clinical indication: Pain; Angina pectoris; Additional info: Chest pain TECHNIQUE: Imaging protocol: Radiologic exam of the chest. Views: 1 view. COMPARISON: CR XR chest 1V portable [id number] 02/26/2025 12:26 PM FINDINGS: Lungs: A few linear opacities are seen in the left lung base most probably representing atelectasis. Pleural spaces: Unremarkable. No pleural effusion. No pneumothorax. Heart/Mediastinum: Unremarkable. No cardiomegaly. Bones/joints: Bone plate and bone screws transfix a healed fracture of the right clavicle. XR/XR chest 1V portable [id number] IMPRESSION: A few linear opacities seen in the left lung base likely represents atelectasis.
--- NOTE | 2025-04-14 09:13 | ECG_ITS ---
[facility]14 Pat Name: Elena Hernandez Department: Room: Gender: Male [employer] Treater: : 1985 Requested By: Isael Flores Order Number: [id number] Reading MD: JACKSON ESPARZA Measurements Intervals Rocky Rate: 87 P: 56 MS: 155 QRS: 53 QRSD: 85 T: 44 QT: 370 QTc: 448 Interpretive Statements SINUS RHYTHM Compared to ECG 02/26/2025 12:26:57 No significant changes Electronically Signed On 04-14-2025 20:09:58 CDT by JACKSON ESPARZA [email or web address] [id number]
--- NOTE | 2025-04-14 09:20 | ED_ITS ---
HPI - General Adult 2 General: Chief complaint: Chest Pain Stated complaint: chest pain Time Seen by Provider: 04/14/25 09:12 History of Present Illness: 39-year-old male presents to the emergen cy room with complaints of abdominal pain and chest pain. He says has been going on for the the last 2 weeks. No significant that aggravates or relieves it. 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 He has no known history of heart disease. He does use marijuana products occasionally drinks alcohol daily. Associated symptoms: Reports chest pain; Deny dyspnea or rash Related Data Home Medications ?Medication ?Instructions ?Recorded ?Confirmed aspirin 81 mg chewable tablet 81 mg PO DAILY 06/22/23 04/14/25 (Children's Aspirin) levocetirizine 5 mg tablet 5 mg PO DAILY 10/31/2304/03 magnesium 250 mg tablet 250 mg PO .QOD 12/23/2304/03 pregabalin 25 mg capsule (Lyrica) 25 mg PO DAILY 03/0304/14/25 lisinopril 20 mg tablet 20 mg PO DAILY 10/10/2404/03 ondansetron 4 mg disintegrating 4 mg PO Q6H PRN Nausea 04/14/25 04/14/25 tablet Previous Rx's ?Medication ?Instructions ?Recorded thiamine mononitrate (vit B1) 100 100 mg PO DAILY #90 tabs 03/03/23 mg tablet (Vitamin B-1 (mononitrate)) pantoprazole 40 mg tablet,delayed 40 mg PO DAILY #10 t abs 01/27/24 release (Protonix) mirtazapine 30 mg tablet (Remeron) 30 mg PO .HS #30 ta bs 02/05/25 naltrexone microspheres 380 mg 380 mg IM .V87ypht #1 e a 02/14/25 intramuscular suspension,extended release metoclopramide HCl 10 mg tablet 10 mg PO Q6H PRN nause a and 02/24/25 (Reglan) vomiting #14 tabs varenicline tartrate 1 mg tablet 1 mg PO BID #56 tabs 03/07/25 (Chantix Continuing Month Box) buspirone 15 mg tablet 30 mg (2 x 15 mg) PO BID #12 0 tabs 03/21/25 atomoxetine 60 mg capsule 60 mg PO DAILY #30 caps 09/27 sertraline 100 mg tablet (Zoloft) 150 mg (1.5 x 100 mg ) PO DAILY #45 04/04/25 tabs Allergies Allergy/AdvReac Type Severity Reaction Status Date / Time acamprosate Allergy Intermediate ADR-Depress Verified 04/14/25 09:22 ion piperacillin (From Zosyn) Allergy ADR-Swelling Verified 04/14/25 09:22 of the Eye tazobactam (From Zosyn) Allergy ADR-Swelling Verified 04/14/25 09:22 of the Eye Review of Systems 2 Const: Denies: fever(s) or chills Card: Reports: chest pain Resp: Denies: dyspnea GI: Reports: abdominal pain : Denies: dysuria, urinary frequency or urinary urgency Musc: Denies: neck pain or back pain Skin/Breast: Denies: rash PFSH ED 2 PFSH: Medical History Acute pancreatitis without infection or necrosis, unspecified pancreatitis type Alcohol use disorder, severe, dependence History of ADHD Alcohol use disorder, moderate, dependence Generalized anxiety disorder Cannabis use disorder Pseudocyst, pancreas Abdominal pain Drug allergy Acute chest wall pain Acute pancreatitis Psychiatric care Tobacco use Hypomagnesemia Hepatomegaly Transaminitis Alcohol intoxication Alcoholism Esophagitis Alcohol intoxication Acute pancreatitis Pseudocyst of pancreas Polysubstance abuse History of suicide attempt C7 cervical fracture C2 cervical fracture L4 vertebral fracture Alcohol abuse PTSD (post-traumatic stress disorder) Elevated transaminase level Pancreatitis, alcoholic, acute Surgical History History of appendectomy History of splenectomy Family History Other Diabetes Social History Smoking and tobacco/nicotine status: current every day tobacco/nicotine user Alcohol intake: current Alcohol intake frequency: 3 or more drinks per day Alcohol type: hard liquor Substance/Drug Use: current Substance/Drug use frequency: daily Adopted: No Caregiver/support person: No Lives independently: No Household members: significant other Marital status: Number of children: 4 Highest education level completed: 12th Grade, No Diploma Current occupational status: unemployed Pets and animals: Yes Leisure activites: other Leisure activities details: None at this time Sexually active: Yes Do you think of yourself as: Straight/Heterosexual Current gender identity: Male Mary Lou/Cheondoism: Jain Special mary lou needs: No Agree to transfusion: Yes Physical Exam 2 Const: GENERAL APPEARANCE: cooperative ORIENTATION/CONSCIOUSNESS: Yes awake, Yes oriented to person, Yes oriented to place and Yes oriented to time HENMT: COMMON NORMALS: normocephalic, atraumatic and hearing grossly normal bilaterally HEAD & SCALP: normocephalic and atraumatic Resp: COMMON NORMALS: normal respiratory effort, No retractions, No use of accessory muscles and clear to auscultation bilaterally AUSCULTATION: clear to auscultation bilaterally Cardio: COMMON NORMALS: regular rate, regular rhythm and No murmurs present (Cardio) RATE: regular rate RHYTHM: regular rhythm GI: COMMON NORMALS: No hepatosplenomegaly present AUSCULTATION: Yes normoactive bowel sounds PALPATION: Yes Tenderness to palpation present (GI) (Epigastric left upper quadrant), No Guarding due to palpation present (GI) and Yes No hepatosplenomegaly present Extremity: COMMON NORMALS: normal to inspection, capillary refill normal, no clubbing, cyanosis or edema, no calf tenderness and no pedal edema Neuro: SENSORIUM/ORIENTATION: Yes oriented to person, Yes oriented to place and Yes oriented to time Skin: COMMON NORMALS: no rashes or lesions noted GENERAL SKIN EXAM: no rashes or lesions noted Course 2 Vital Signs: Vital signs: Vital Signs Temperature 98.0 F 04/15/25 04:00 Pulse Rate 64 04/15/25 04:00 Respiratory Rate 17 04/15/25 07:20 Blood Pressure 151/107 04/15/25 04:00 Pulse Oximetry 99 04/15/25 04:59 Oxygen Delivery Me thod Room Air 04/15/25 04:00 [facility] - General Adult Medical Decision Making Patient has acute pancreatitis on CT however his lipase is normal his liver enzymes are markedly elevated common bile duct does not appear to be obstructed on previous gallbladder ultrasound and today there is notation of sludge but no stones. Discussed with on-call GI at [facility] they stated they would not do any intervention they would not drain the pseudocyst less than 6 cm in would not do an ERCP given the fact there is no dilation of common bile duct at this time. They recommend typical treatment for acute pancreatitis and continue monitoring. They would recommend transfer if there becomes dilation of the common bile duct or patient was worsening. He is listed as having hepatitis B and his past medical history however on review of the labs it is only a surface antigen which could be from vaccination or exposure but the core antigen is negative. Medical Records I reviewed the patient's medical records. Lab Data I reviewed the patient's lab results. 04/14/25 09:22 04/15/25 02:43 Radiology Impressions Chest X-Ray 04/14/25 09:13 IMPRESSION: A few linear opacities seen in the left lung base likely represents atelectasis. Abdomen/Pelvis CT 04/14/25 10:17 IMPRESSION: 1. Suspected acute pancreatitis with inflammatory stranding and edema about the pancreatic head. 2. Increasing pancreatic head pseudocyst described above with localized mass effect measuring 5.3 x 4.8 cm today. 3. Evidence of gastritis and duodenitis. 4. No other acute findings. Notified Isael Noble DO at 04/14/2025 11:48 AM. Gallbladder Ultrasound 04/14/25 10:34 IMPRESSION: 1. Minimal amount of sludge in the gallbladder. No stones. 2. Cystic mass in the pancreatic head measuring 4.1 x 4.2 x 4.6 cm. Stable in size since 02/26/2025 and thought to be a pseudocyst. Laboratory Results WBC 10.12 10^3/uL (3.29-11.43) 04/14/25 09:22 RBC 4.21 10^6/uL (3.85-5.65) 04/14/25 09:22 Hgb 13.80 g/dL (11.27-16.99) 04/14/25 09:22 Hct 38.1 % (37-53) 04/14/25 09:22 MCV 90.5 fl (82-101) 04/14/25 09:22 MCH 32.8 pg (27-33) 04/14/25 09:22 MCHC 36.2 g/dL (30-55) 04/14/25 09:22 RDW 17.7 % (12.1-15.1) H 04/14/25 09:22 Plt Count 458 10^3/cmm (157-399) H 04/14/25 09:22 MPV 10.0 fL (7.4-10.4) 04/14/25 09:22 Neut % (Auto) 53.7 % 04/14/25 09:22 Lymph % (Auto) 30.5 % 04/14/25 09:22 Spencer % (Auto) 10.6 % 04/14/25 09:22 Eos % (Auto) 3.7 % 04/14/25 09:22 Baso % (Auto) 1.2 % 04/14/25 09:22 Neut # (Auto) 5.44 10^3/uL (1.8-7.7) 04/14/25 09:22 Lymph # (Auto) 3.1 10^3/uL (0.8-4.8) 04/14/25 09:22 Spencer # (Auto) 1.1 10^3/uL (0.2-0.9) H 04/14/25 09:22 Eos # (Auto) 0.4 10^3/uL (0.0-0.8) 04/14/25 09:22 Baso # (Auto) 0.1 10^3/uL (0.0-0.1) 04/14/25 09: Nucleated RBC % (auto) 0 % 04/14/25 09: Nucleated RBCs # 0.0 /100WBC 04/14/25 09:22 PT 13.00 SECONDS (12.1-14.9) 04/14/25 09:52 INR 0.92 (0.8-1.2) 04/14/25 09:52 APTT 24.6 SECONDS (23.9-36.7) 04/14/25 09:52 Sodium 142 mmol/L (136-145) 04/14/25 09:52 Potassium 4.4 mmol/L (3.5-5.1) 04/14/25 09:52 Chloride 102 mmol/L (98-107) 04/14/25 09:52 Carbon Dioxide 27 mmol/L (22-29) 04/14/25 09:52 Anion Gap 17.4 (5-19) 04/14/25 09:52 BUN 5 mg/dL (6-20) L 04/14/25 09:52 Creatinine 0.5 mg/dL (0.7-1.2) L 04/14/25 09:52 GFR Calculation 186.1 mL/min (90-130) H 04/14/25 09:52 Glucose 116 mg/dL (65-115) H 04/14/25 09:52 Calculated Osmolality 292 mOsm/kg (285-295) 04/14/25 09:52 Calcium 9.0 mg/dL (8.5-10.5) 04/14/25 09:52 Magnesium Cancelled 04/14/25 09:22 Total Bilirubin 4.3 mg/dL (0.15-1.2) H 04/14/25 09:52 AST 161 U/L (0-40) H 04/14/25 09:52 ALT 197 U/L (0-41) H 04/14/25 09:52 Alkaline Phosphatase 1112 U/L (40-130) H* 04/14/25 09:52 Ammonia 92 umol/L (16-60) H 04/14/25 09:52 Troponin T Baseline < 6 ng/L (0-15) 04/14/25 09:52 Troponin T 120 Minute < 6.0 ng/L (0-15) 04/14/25 11:55 Delta Troponin T 0 ABS# (0-10) 04/14/25 11:55 Total Protein 6.5 g/dL (6.6-8.7) L 04/14/25 09:52 Albumin 3.8 g/dL (3.5-5.2) 04/14/25 09:52 Globulin 2.7 g/dL (1.3-4.6) 04/14/25 09:52 Lipase 40 U/L (13-60) 04/14/25 09:52 All radiology interpretation(s) finalized by discharge EKG Data EKG 1: Interpretation: EKG 04/14/2025 913 sinus rhythm rate of 87 CO interval 155 QTc [address] changes compared to EKG 02/26/2025 no significant change noted. Computer generated interpretation: Chest X-Ray 04/14/25 09:13 IMPRESSION: A few linear opacities seen in the left lung base likely represents atelectasis. Abdomen/Pelvis CT 04/14/25 10:17 IMPRESSION: 1. Suspected acute pancreatitis with inflammatory stranding and edema about the pancreatic head. 2. Increasing pancreatic head pseudocyst described above with localized mass effect measuring 5.3 x 4.8 cm today. 3. Evidence of gastritis and duodenitis. 4. No other acute findings. Notified Isael Noble DO at 04/14/2025 11:48 AM. Gallbladder Ultrasound 04/14/25 10:34 IMPRESSION: 1. Minimal amount of sludge in the gallbladder. No stones. 2. Cystic mass in the pancreatic head measuring 4.1 x 4.2 x 4.6 cm. Stable in size since 02/26/2025 and thought to be a pseudocyst. EKG 2: Interpretation: EKG 04/14/2025 11:44 AM normal sinus rhythm rate of 74 CO interval [address] changes noted no T wave inversion no change from EKG done same day earlier. Computer generated interpretation: Chest X-Ray 04/14/25 09:13 IMPRESSION: A few linear opacities seen in the left lung base likely represents atelectasis. Abdomen/Pelvis CT 04/14/25 10:17 IMPRESSION: 1. Suspected acute pancreatitis with inflammatory stranding and edema about the pancreatic head. 2. Increasing pancreatic head pseudocyst described above with localized mass effect measuring 5.3 x 4.8 cm today. 3. Evidence of gastritis and duodenitis. 4. No other acute findings. Notified Isael Noble DO at 04/14/2025 11:48 AM. Gallbladder Ultrasound 04/14/25 10:34 IMPRESSION: 1. Minimal amount of sludge in the gallbladder. No stones. 2. Cystic mass in the pancreatic head measuring 4.1 x 4.2 x 4.6 cm. Stable in size since 02/26/2025 and thought to be a pseudocyst. Discharge Plan Discharge Patient Disposition: Admitted As Inpatient Admit Provider: Roger Rai Clinical Impression: Acute pancreatitis without infection or necrosis, unspecified pancreatitis type, Pseudocyst of pancreas, Cannabis use disorder, Chest pain, Elevated LFTs, Alcohol abuse Condition: Stable Coding Level of Care Code ED Physician Advisor for Marko Avery
--- OUTSIDE RECORDS SUMMARY | 2025-04-14 09:21 | XMS_ITS | Clinical Summary ---
Author Organization [facility] Address [address] [facility] Attn: Epic Prelude ADT CARLA SCHULER [address] Care Team Providers Care Stitch Rubber Name Role Phone Mahamed Sales MD Primary Care Provider [phone] Allergies Active Allergy Reactions Criticality Noted Date Comments Acamprosate Other (See Comments) Medium 01/12/2025 Pt states this med makes me violent Piperacillin-Tazobacta m Anaphylaxis High 01/06/2024 Medications atomoxetine (STRATTERA) 60 mg capsule Take 1 Capsule by mouth daily. 4 Active levocetirizine (XYZAL) 5 mg tablet Take 1 Tablet by mouth daily. 4 Active naltrexone (DEPADE) 50 mg tablet Take 1 Tablet by mouth daily. 4 Active pantoprazole (PROTONIX) 40 mg Tablet, Delayed Release (E.C.) Take 1 Tablet by mouth 2 times daily. Not taking as ordered 4 Active sertraline (ZOLOFT) 100 mg tablet Take 1 Tablet by mouth daily. 4 Active thiamine (VITAMIN B-1) 100 mg tablet Take 1 Tablet by mouth daily. Active naloxone (NARCAN) 4 mg/spray Holden, Non-Aerosol EMERGENCY USE ONLY: Administer 1 spray (4 mg) in one nostril one time. May repeat in alternating nostrils every 2-3 min until responsive or EMS arrives. 2 Each 3 4 Active lipase-proteas e-amylase DR Oscar) 36,000-114,000 -180,000 unit capsule Take 2 capsules with every meal and 1 with every snack 300 Capsule 2 4 Active nystatin (MYCOSTATIN) 100,000 unit/gram Cream APPLY TO THE AFFECTED AREA(S) topically TWICE DAILY 4 Active busPIRone (BUSPAR) 15 mg Tablet Take 15 mg by mouth daily. 4 Active metoclopramide HCl (REGLAN) 10 mg tablet Take 10 mg by mouth every 8 hours as needed for Nausea/Emesis. Active ondansetron (ZOFRAN ODT) 4 mg Tablet, Rapid Dissolve Take 1 Tablet (4 mg) by mouth every 6 hours as needed for Nausea/Emesis. Dissolve tablet on top of tongue, then swallow with saliva. 12 Tablet 4 Active folic acid (FOLVITE) 1 mg tablet Take 1 Tablet by mouth daily. 4 Active mirtazapine (REMERON) 30 mg tablet Take 30 mg by mouth daily at bedtime. 4 Active varenicline (CHANTIX) 1 mg Tablet Take 1 Tablet by mouth 2 times daily. 4 Active chlorhexidine gluconate 0.12 % Mouthwash 15 mL by Mouth/Throat route 2 times daily. 5 Active sucralfate (CARAFATE) 1 gram tablet Take 1 Gram by mouth 3 times daily before meals. 5 Active prochlorperazi ne maleate (COMPAZINE) 10 mg tablet Take 1 Tablet (10 mg) by mouth every 6 hours as needed for Nausea. 25 Tablet 5 Active lisinopriL (PRINIVIL) 20 mg tablet Take 20 mg by mouth daily. Active aspirin (ECOTRIN EC) 81 mg Tablet, Delayed Release (E.C.) Take 81 mg by mouth daily. Active magnesium OXIDE 250 mg magnesium Tablet Take 250 mg by mouth daily. Active pregabalin (LYRICA) 25 mg Capsule Take 1 Capsule (25 mg) by mouth daily at bedtime. 30 Capsule 5 Active pregabalin (LYRICA) 25 mg Capsule Take 1 capsule by mouth once daily at bedtime 30 Capsule 5 03/27/20 25 Discontin ued(Reord er) Active Problems Problem Noted Date Diagnosed Date [...] Encounters Date Type Department Care Team Description 04/11/2025 External Device Data [facility] ABSTRACTION Provider, Abstract 04/05/2025 External Device Data [facility] ABSTRACTION Provider, Abstract 03/27/2025 12:20 PM CDT Office Visit [facility] Pain Management [address] [place] [phone] Lacie Summers PA Cervical radiculopathy (Primary Dx) 03/27/2025 10:20 AM CDT [facility] [place] [phone] Josh Sanchez MD Dilated pancreatic duct (Primary Dx); Pancreatic pseudocyst; Chronic pancreatitis, unspecified pancreatitis type (CMS/HCC); History of partial pancreatectomy; H/O splenectomy; Elevated LFTs 03/27/2025 [facility] [place] [phone] Josh Sanchez MD 03/27/2025 [facility] [place] [phone] Becky Garcai RN 03/22/2025 External Device Data [facility] ABSTRACTION Provider, Abstract 03/21/2025 Refill [facility] Gastroenter[address] [place] [phone] Josh Sanchez MD 03/13/2025 Orders Only [address] [place] [phone] Noreen Delgado, AUDIO VISUAL DIRECTOR Acute hepatitis B without delta-agent and without hepatic coma (Primary Dx) 03/07/2025 External Device Data [facility] ABSTRACTION Provider, Abstract 02/15/2025 External Device Data [facility] ABSTRACTION Provider, Abstract 02/15/2025 External Device Data [facility] ABSTRACTION Provider, Abstract 02/15/2025 External Device Data [facility] ABSTRACTION Provider, Abstract 02/15/2025 External Device Data [facility] ABSTRACTION Provider, Abstract 02/08/[address] [phone] Josh Sanchez MD 02/07/2025 External Device Data [facility] ABSTRACTION Provider, Abstract 02/07/2025 External Device Data [facility] ABSTRACTION Provider, Abstract 01/18/2025 External Device Data [facility] ABSTRACTION Provider, Abstract 01/17/2025 External Device Data [facility] ABSTRACTION Provider, Abstract 01/17/2025 External Device Data [facility] ABSTRACTION Provider, Abstract 01/11/2025 11:36 PM CDT - 01/14/2025 6:21 PM CDT Hospital Encounter Medical Telemetry [address] [place] [address] Davidson Beatty MD Sundaram, Vignesh, MD [place], Kristie Malone MD Acute on chronic pancreatitis (CMS/HCC) Discharge Disposition: Left Against Medical Advice from Last 3 Months Immunizations Immunization Administration [...] PNEUM OCOCCAL CONJUGATE VACCINE 20-VALENT (PCV20), POLYSACCHARIDE [id number] CONJUGATE, ADJUVANT 0.5 ML (PF) IM 06/18/2024 (PROQUAD)(12 MOS-12 YRS)MISHA LES, MUMPS, RUBELLA, AND VARICELLA VIRUS VACCINE. 0.5 ML, SUBCUT 03/03/1992,12/26/1987 (TDVAX)(7 YRS UP) TETANUS AN D DIPHTHERIA TOXOIDS, ADSORBED (2 LF OF TETANUS TOXOID AND 2 LF OF DIPHTHERIA TOXOID), 0.5ML (PF), IM 05/02/2002 Hepatitis B Vaccine, Unspeci fied Formulation 10/17/1999,02/07/1999,01/08/1999 Poliovirus Vaccine Live Oral [facility] 992,03/14/1987,01/20/1987,11/11 Social History Tobacco Use Types Packs/Day Years Used Date Smoking Tobacco: Every Day Cigarettes Smokeless Tobacco: Former Tobacco Cessation:Ready to Q uit: Not Asked; Counseling Given: Not Answered Alcohol Use Standard Drinks/Week Comments Yes 35 (1 standard drink = 0.6 oz pu re alcohol) 15 beers a day Feeling Safe Answer Date Recorded Are you in a relationship wi th someone who hurts you emotionally and/or physically? No 01/12/2025 Food Insecurity Answer Date Recorded Patient needs follow up regardin 11/23/2024 Transportation Needs Answer Date Record ed Patient needs follow up regardin 11/23/2024 Housing Stability Answer Date Recorded Social/Environmental Concerns No concerns Utility Needs Answer Date Recorded Patient needs follow up regardin 11/23/2024 Sex and Gender Information Value Date Recorded Sex Assigned at Not on file Legal Sex Male 4:00 AM [employer] Gender Identity Not on file Sexual Orientation Not on file Last Filed Vital Signs Vital Sign Reading Time Taken Comments Blood Pressure 138/76 03/27/2025 12:05 PM CDT Pulse 75 03/27/2025 10:39 AM CDT Temperature 36.2 C (97.2 F) 01/14/2025 1:46 PM CDT Respiratory Rate 14 01/14/2025 1:46 PM CDT Oxygen Saturation 98% 01/14/2025 1:46 PM CDT Inhaled Oxygen Concentration - - Weight 76.2 kg (168 lb) 03/27/2025 12:05 PM CDT Height 180.3 cm (5' 11 ) 03/27/2025 12:05 PM CDT Body Mass Index 23.43 03/27/2025 12:05 PM CDT Plan of Treatment Upcoming Encounters Date Type Department Care Team (Latest Contact Info) Description 04/17/2025 9:10 AM CDT Appointment [facility] Pain Management Procedures [place] [address] [place] [address] Baldo Blas MD [address] [address] 05/08/2025 1:00 PM CDT Hospital Encounter Endoscopy [address] [place] [address] John Lynch MD [address] [address] 05/08/2025 1:00 PM CDT - 05/08/2025 1:40 PM CDT Surgery Endoscopy [address] [place] [address] John Lynch MD [address] [address] ESOPHAGOGASTRODUODENOSCOPY WITH ENDOSCOPIC ULTRASOUND 10/09/2025 10:00 AM CDT Office Visit [facility] Gastroenterology - [place] [address] [facility] [address] [place] [address] Josh Sanchez MD [address] [facility] [address] [place] [address] Scheduled Procedures Name Priority Associated Diagnoses Date/Ti me ESOPHAGOGASTRODUODENOSCOPY W ITH ENDOSCOPIC ULTRASOUND Z90.411 (ICD-10-CM) - V88.12 (ICD-9-CM) - History of partial pancreatectomy, pancreatic pseudocyst, dilated pancreatic duct, hx of pancreatitis 05/08/2025 1:00 PM CDT Health Maintenance Due Date Last Done Comments HPV VACCINES (1 - 3-dose SCD M series) 2013 INFLUENZA VACCINE (#1) 2025 DTAP/TDAP/TD VACCINES (8 - T d or Tdap) 10/16/2032 10/16/2022, 10/26/2013, 05/02/2002, Additional history exists HEPATITIS B VACCINES Completed 10/17/1999, 02/07/1999, 01/08/1999 Goals Goal Patient Goal Type Associated Problems Recent Progress Patient-Stated? Author Autogenerat ed Goal Care Plan Autogenerated Problem No Becky Garcia, ingot header Procedure Name Priority Date/Time Associated Diagnosis Comments HEPATITIS B VIRAL DNA QUANTITATIVE PCR Routine 03/27/2025 1:12 PM CDT Dilated pancreatic duct Pancreatic pseudocyst Chronic pancreatitis, unspecified pancreatitis type (CMS/HCC) History of partial pancreatectomy H/O splenectomy Elevated LFTs HEPATITIS BE ANTIBODY Routine 03/27/2025 1:12 PM CDT Dilated pancreatic duct Pancreatic pseudocyst Chronic pancreatitis, unspecified pancreatitis type (CMS/HCC) History of partial pancreatectomy H/O splenectomy Elevated LFTs HEPATITIS BE ANTIGEN Routine 03/27/2025 1:12 PM CDT Dilated pancreatic duct Pancreatic pseudocyst Chronic pancreatitis, unspecified pancreatitis type (CMS/HCC) History of partial pancreatectomy H/O splenectomy Elevated LFTs VITAMIN A LEVEL Routine 03/27/2025 1:12 PM CDT Dilated pancreatic duct Pancreatic pseudocyst Chronic pancreatitis, unspecified pancreatitis type (CMS/HCC) History of partial pancreatectomy H/O splenectomy Elevated LFTs VITAMIN B12 AND FOLATE Routine 03/27/2025 1:12 PM CDT Dilated pancreatic duct Pancreatic pseudocyst Chronic pancreatitis, unspecified pancreatitis type (CMS/HCC) History of partial pancreatectomy H/O splenectomy Elevated LFTs VITAMIN E LEVEL Routine 03/27/2025 1:12 PM CDT Dilated pancreatic duct Pancreatic pseudocyst Chronic pancreatitis, unspecified pancreatitis type (CMS/HCC) History of partial pancreatectomy H/O splenectomy Elevated LFTs VITAMIN D 25 HYDROXY Routine 03/27/2025 1:12 PM CDT Dilated pancreatic duct Pancreatic pseudocyst Chronic pancreatitis, unspecified pancreatitis type (CMS/HCC) History of partial pancreatectomy H/O splenectomy Elevated LFTs PROTIME-INR Routine 03/27/2025 1:12 PM CDT Dilated pancreatic duct Pancreatic pseudocyst Chronic pancreatitis, unspecified pancreatitis type (CMS/HCC) History of partial pancreatectomy H/O splenectomy Elevated LFTs COMPREHENSIVE METABOLIC PANEL Routine 03/27/2025 1:12 PM CDT Dilated pancreatic duct Pancreatic pseudocyst Chronic pancreatitis, unspecified pancreatitis type (CMS/HCC) History of partial pancreatectomy H/O splenectomy Elevated LFTs HEPATITIS B CORE IGM Routine 03/27/2025 1:12 PM CDT Dilated pancreatic duct Pancreatic pseudocyst Chronic pancreatitis, unspecified pancreatitis type (CMS/HCC) History of partial pancreatectomy H/O splenectomy Elevated LFTs HEPATITIS B SURFACE ANTIGEN Routine 03/27/2025 1:12 PM CDT Dilated pancreatic duct Pancreatic pseudocyst Chronic pancreatitis, unspecified pancreatitis type (CMS/HCC) History of partial pancreatectomy H/O splenectomy Elevated LFTs HEPATITIS B CORE AB TOTAL Routine 03/27/2025 1:12 PM CDT Dilated pancreatic duct Pancreatic pseudocyst Chronic pancreatitis, unspecified pancreatitis type (CMS/HCC) History of partial pancreatectomy H/O splenectomy Elevated LFTs HEPATITIS B SURFACE AB, QUANT Routine 03/27/2025 1:12 PM CDT Dilated pancreatic duct Pancreatic pseudocyst Chronic pancreatitis, unspecified pancreatitis type (CMS/HCC) History of partial pancreatectomy H/O splenectomy Elevated LFTs HEPATITIS C ANTIBODY Routine 03/27/2025 1:12 PM CDT Dilated pancreatic duct Pancreatic pseudocyst Chronic pancreatitis, unspecified pancreatitis type (CMS/HCC) History of partial pancreatectomy H/O splenectomy Elevated LFTs TELEMETRY REPORT 01/18/2025 3:08 PM CDT TELEMETRY [...] WITH DIFFERENTIAL Routine 01/12/2025 7:13 AM CDT from Last 3 Months Results * HEPATITIS B SURFACE AB, QUANT (03/27/2025 1:12 PM CDT) HEPATITIS B SURFACE AB >1000 > OR = 10 mIU/mL [facility] Comment: Patient has immunity to hepatitis B virus. For additional information, please refer to http://education.RampedMediadiagnostics.com/faq/FKD439 (This link is being provided for informational/ educational purposes only). Test Performed at: [facility] [place] [address] Trevor Morton MD Blood 03/27/2025 1:12 PM CDT 03/27/2025 1:12 PM CDT Josh Sanchez MD CHEMISTRY ORDERABLES Megan l Result Performing Organization Address [facility] de Phone Number [facility] [phone] [address] * HEPATITIS B CORE AB TOTAL (03/27/2025 1:12 PM CDT) HEPATITIS B CORE AB NON-REACTI VE NON-REACTI VE [facility] Comment: For additional information, please refer to http://Heyy/faq/SNB841 (This link is being provided for informational/ educational purposes only.) Test Performed at: [facility] [address] Trevor Morton MD Blood 03/27/2025 1:12 PM CDT 03/27/2025 1:12 PM CDT us Josh Sanchez MD CHEMISTRY ORDERABLES Megan l Result Performing Organization Address [facility] Co de Phone Number [facility] [phone] [facility] [address] [place] [address] * HEPATITIS B SURFACE ANTIGEN (03/27/2025 1:12 PM CDT) HEPATITIS B SURFACE AG NON-REACTI VE NON-REACTI VE [facility] Comment: For additional information, please refer to http://Yeahka.UrbnDesignz/faq/WAN948 (This link is being provided for informational/ educational purposes only.) Test Performed at: [facility] [address] Trevor Morton MD Blood 03/27/2025 1:12 PM CDT 03/27/2025 1:12 PM CDT Josh Sanchez MD CHEMISTRY ORDERABLES Megan l Result Performing Organization Address [facility] de Phone Number [facility] [phone] [address] * VITAMIN B12 AND FOLATE (03/27/2025 1:12 PM CDT) Pathologist [facility] VITAMIN B12 992 200 - 1100 pg/mL [facility] FOLATE, SERUM 14.4 ng/mL [facility] Comment: Reference Range Low: <3.4 Borderline: 3.4-5.4 Normal: >5.4 Test Performed at: [facility] [address] Trevor Morton MD Blood 03/27/2025 1:12 PM CDT 03/27/2025 1:12 PM CDT Josh Sanchez MD CHEMISTRY ORDERABLES Megan l Result Performing Organization Address [facility] de Phone Number [facility] [phone] [address] * VITAMIN A LEVEL (03/27/2025 1:12 PM CDT) Pathologist [facility] VITAMIN A LEVEL 63 38 - 98 mcg/dL [facility] Comment: (Note) Clin Chem Vol. 34.No.8. [id number]. 1998 Vitamin supplementation within 24 hours prior to blood draw may affect the accuracy of results. This test was developed and its analytical performance characteristics have been determined by [facility]. It has not been cleared or approved by the FDA. This assay has been validated pursuant to the CLIA regulations and is used for clinical purposes. [facility] [address] [facility] [address] [place] [address] Carlos Benton MD, PhD Test Performed at: [facility] [address] [facility] [address], [address] [place] [address] Carlos Benton MD,PhD Blood 03/27/2025 1:12 PM CDT 03/27/2025 1:12 PM CDT Josh Sanchez MD CHEMISTRY ORDERABLES Megan l Result Performing Organization Address City/[facility]/ZIP Co de Phone Number [facility] [phone] [facility] [address] [place] [address], [address] [place] [address] * HEPATITIS C ANTIBODY W REFLEX (03/27/2025 1:12 PM CDT) HEPATITIS C AB NON-REACTI VE NON-REACT [facility] Comment: HCV antibody was non-reactive. There is no laboratory evidence of HCV infection. In most cases, no further action is required. However, if recent HCV exposure is suspected, a test for HCV RNA (test code 14326) is suggested. For additional information please refer to http://education.UrbnDesignz/faq/HAD53b0 (This link is being provided for informational/ educational purposes only.) Test Performed at: [facility] [address] [facility] [place] [address] Trevor Morton MD Blood 03/27/2025 1:12 PM CDT 03/27/2025 1:12 PM CDT us Josh Sanchez MD CHEMISTRY ORDERABLES Megan l Result Performing Organization Address City/[facility]/ZIP Co de Phone Number [facility] [phone] [facility] [address] [facility] [place] [address] * HEPATITIS B VIRAL DNA QUANTITATIVE PCR (03/27/2025 1:12 PM CDT) Pathologist [facility] HEPATITIS B VIRAL DNA QNT PCR NOT DETECTED NOT DETECTED IU/mL [facility] [place] HEPATITIS B VIRAL DNA QNT PCR NOT DETECTED NOT DETECTED Log IU/mL [facility] [place] Comment: This test was performed using Real-Time Polymerase Chain Reaction. Reportable Range: 10 IU/mL to 1,000,000,000 IU/mL. (1.00 Log IU/mL to 9.00 Log IU/mL). Test Performed at: [facility] [address] Trevor Morton MD Blood 03/27/2025 1:12 PM CDT 03/27/2025 1:12 PM CDT Josh Sanchez MD CHEMISTRY ORDERABLES Megan l Result Performing Organization Address [facility] de Phone Number [facility] [phone] [facility] [address] * HEPATITIS B CORE IGM (03/27/2025 1:12 PM CDT) [facility] HEPATITIS B CORE IGM NON-REACTI VE NON-REACTI VE [facility] Comment: For additional information, please refer to http://education.UrbnDesignz/faq/DKN802 (This link is being provided for informational/ educational purposes only.) Test Performed at: [facility] [address] Trevor Morton MD Blood 03/27/2025 1:12 PM CDT 03/27/2025 1:12 PM CDT Josh Sanchez MD CHEMISTRY ORDERABLES Megan l Result Performing Organization Address [facility]/ZIP Co de Phone Number [facility] [phone] [address] * HEPATITIS BE ANTIGEN (03/27/2025 1:12 PM CDT) [facility] HEPATITIS BE AG NON-REACTI VE NON-REACTI VE [facility] Comment: For additional information, please refer to http://Yeahka.UrbnDesignz/faq/UUP618 (This link is being provided for informational/ educational purposes only.) Test Performed at: [facility] [address] Trevor Morton MD Blood 03/27/2025 1:12 PM CDT 03/27/2025 1:12 PM CDT Josh Sanchez MD CHEMISTRY ORDERABLES Megan l Result Performing Organization Address [facility] Co de Phone Number [facility] [phone] [facility] [address] * HEPATITIS BE ANTIBODY (03/27/2025 1:12 PM CDT) [facility] HEPATITIS BE AB NON-REACTI VE NON-REACTI VE [facility] Comment: For additional information, please refer to http://Yeahka.UrbnDesignz/faq/STP905 (This link is being provided for informational/ educational purposes only.) Test Performed at: [facility] [address] Trevor Morton MD Blood 03/27/2025 1:12 PM CDT 03/27/2025 1:12 PM CDT Josh Sanchez MD CHEMISTRY ORDERABLES Megan l Result Performing Organization Address City/[facility]/ZIP Co de Phone Number [facility] [phone] [address] * VITAMIN D 25 HYDROXY (03/27/2025 1:12 PM CDT) [facility] VITAMIN D, 25 OH, TOTAL 57 30 - 100 ng/mL [facility] Comment: Vitamin D Status 25-OH Vitamin D: Deficiency: <20 ng/mL Insufficiency: 20 - 29 ng/mL Optimal: > or = 30 ng/mL For 25-OH Vitamin D testing on patients on D2-supplementation and patients for whom quantitation of D2 and D3 fractions is required, the [facility](TM) 25-OH VIT D, (D2,D3), LC/MS/MS is recommended: order code 19047 (patients >2yrs). See Note 1 Note 1 For additional information, please refer to http://Yeahka.Jump or Fall/faq/ATL565 (This link is being provided for informational/ educational purposes only.) Test Performed at: [facility] [address] [place] [address] Trevor Morton MD Blood 03/27/2025 1:12 PM CDT 03/27/2025 1:12 PM CDT us Josh Sanchez MD CHEMISTRY ORDERABLES [facility] Result [facility] [phone] [address] * PROTIME-INR (03/27/2025 1:12 PM CDT) Only the most recent of2 resultswithin the time period is included. [facility] INR 1.0 [facility] Comment: Reference Range 0.9-1.1 Moderate-intensity Warfarin Therapy 2.0-3.0 Higher-intensity Warfarin Therapy 3.0-4.0 PROTIME 10.3 9.0 - 11.5 sec [facility] Comment: For additional information, please refer to http://Yeahka.UrbnDesignz/faq/ZWS690 (This link is being provided for informational/ educational purposes only.) Test Performed at: [facility] [address] [place] [address] Clay Rogers Blood 03/27/2025 1:12 PM CDT 03/27/2025 1:12 PM CDT Josh Sanchez MD HEMATOLOGY ORDERABLES Fin al Result [facility] [phone] [facility] [address] [facility] [place] [address] * VITAMIN E LEVEL (03/27/2025 1:12 PM CDT) [facility] VITAMIN E (ALPHA TOCOPHEROL) 11.5 5.7 - 19.9 mg/L [facility] Comment:Levels of alpha-toco pherol <5 mg/L are consistent with Vitamin E deficiency in adults. VITAMIN E BETA GAMMA 1.2 <4.4 mg/L [facility] Comment: (Note) Vitamin supplementation within 24 hours prior to blood draw may affect the accuracy of results. This test was developed and its analytical performance characteristics have been determined by [facility]. It has not been cleared or approved by the FDA. This assay has been validated pursuant to the CLIA regulations and is used for clinical purposes. MD [facility] [address] [place] [address],[address] [place] [address] Carlos Benton MD, PhD Test Performed at: [facility] [address] [place] [address], [address] [place] [address] Carlos Benton MD,PhD Blood 03/27/2025 1:12 PM CDT 03/27/2025 1:12 PM CDT Josh Sanchez MD CHEMISTRY ORDERABLES Megan l Result [facility] [phone] [facility] [address] [place] [address], [address] [place] [address] * (ABNORMAL) COMPREHENSIVE METABOLIC PANEL (03/27/2025 1:12 PM CDT) Only the most recent of3 resultswithin the time period is included. GLUCOSE 162(H) 65 - 99 mg/dL [facility] Comment: Fasting reference interval For someone without known diabetes, a glucose value >125 mg/dL indicates that they may have diabetes and this should be confirmed with a follow-up test. BUN 10 7 - 25 mg/dL [facility] CREATININE 0.74 0.60 - 1.26 mg/dL [facility] GFR 119 > OR = 60 mL/min/1. 73m2 [facility][1] RR BUN/CREAT RATIO SEE NOTE: 6 (calc) [facility][1] RR Comment: Not Reported: BUN and Creatinine are within reference range. SODIUM 138 135 - 146 mmol/L [facility][1] RRL POTASSIUM 4.8 3.5 - 5.3 mmol/L [facility][1] RR CHLORIDE 98 98 - 110 mmol/L [facility] CO2 33(H) 20 - 32 mmol/L [facility][1] RRL CALCIUM 10.2 8.6 - 10.3 mg/dL [facility] TOTAL PROTEIN 8.3(H) 6.1 - 8.1 g/dL [facility][1] RRL ALBUMIN 5.2(H) 3.6 - 5.1 g/dL [facility][1] RRL GLOBULIN 3.1 1.9 - 3.7 g/dL (calc) [facility] ALBUMIN/GLOBULIN RATIO 1.7 1.0 - 2.5 (calc) [facility][1] RR BILIRUBIN TOTAL 1.1 0.2 - 1.2 mg/dL [facility] ALKALINE PHOSPHATASE 356(H) 36 - 130 U/L [facility][1] RRL AST 76(H) 10 - 40 U/L [facility][1] RRL ALT 98(H) 9 - 46 U/L [facility][1] RRL Comment: Test Performed at: [facility] [address] [place] [address] Clay Rogers Blood 03/27/2025 1:12 PM CDT 03/27/2025 1:12 PM CDT us Josh Sanchez MD CHEMISTRY ORDERABLES Megan lu Result [facility] [phone] [facility] RRL [address] [facility], [place] [address] * TELEMETRY REPORT (01/18/2025 3:08 PM CDT) [...] 6:27 AM CDT) Only the most recent of2 resultswithin the time period is included. WBC 8.3 4.5 - 11.0 K/uL 01/13/2025 6:[address] [facility] RBC 4.09(L) 4.60 - 6.20 M/uL 01/13/2025 6:[address] [facility] HEMOGLOBIN 14.0 14.0 - 18.0 g/dL 01/13/2025 6:[address] [facility] HEMATOCRIT 39.7(L) 41.0 - 53.0 % 01/13/2025 6:[address] [facility] MCV 97.1 84.0 - 103.0 fL 01/13/2025 6:[address] [facility] MCH 34.2(H) 27.0 - 34.0 pg 01/13/2025 6:[address] [facility] MCHC 35.3(H) 30.0 - 35.0 g/dL 01/13/2025 6:[address] [facility] PLATELETS 227 140 - 440 K/uL 01/13/2025 6:[address] [facility] MPV 8.9 8.9 - 12.8 fL 01/13/2025 6:[address] [facility] RDW 12.7 11.0 - 14.5 % 01/13/2025 6:[address] [facility] RDW-STDEV 45.9 37.0 - 54.0 fL 01/13/2025 6:[address] [facility] NEUTROPHILS 50 42 - 75 % 01/13/2025 6:[address] [facility] LYMPHOCYTES 31 24 - 44 % 01/13/2025 6:[address] [facility] MONOCYTES 10 2 - 10 % 01/13/2025 6:[address] [facility] EOSINOPHILS 8(H) 0 - 7 % 01/13/2025 6:[address] [facility] BASOPHILS 1 0 - 1 % 01/13/2025 6:[address] [facility] IMMATURE GRANULOCYTES 0 0 - 2 % 01/13/2025 6:[address] [facility] NEUTROPHIL ABSOLUTE 4.12 2.00 - 8.00 K/uL 01/13/2025 6:[address] [facility] LYMPHOCYTE ABSOLUTE 2.60 1.20 - 4.00 K/uL 01/13/2025 6:[address] [facility] MONOCYTE ABSOLUTE 0.79(H) 0.10 - 0.60 K/uL 01/13/2025 6:[address] [facility] EOSINOPHIL ABSOLUTE 0.65 0.00 - 0.70 K/uL 01/13/2025 6:[address] [facility] BASOPHILS ABSOLUTE 0.09 0.00 - 0.20 K/uL 01/13/2025 6:[address] [facility] IMMATURE GRANULOCYTES ABSOLUTE 0.03 0.00 - 0.10 K/uL 01/13/2025 6:[address] [facility] SMEAR REVIEWED: NA - Not Applicable 01/13/2025 6:[address] [facility] Blood Venipuncture / Unknown 01/13/2025 6:27 AM CDT 01/13/2025 6:31 AM CDT Amador Hernandez MD HEMATOLOGY ORDERABLES Final Result Performing Organization Address City/[facility]/ZIP Co de Phone Number [facility] CLIA # [id number] [address] [address] * MAGNESIUM LEVEL (01/13/2025 6:26 AM CDT) Only the most recent of2 resultswithin the time period is included. MAGNESIUM 1.8 1.6 - 2.6 mg/dL 01/13/2025 7:[address] [facility] Blood Venipuncture / Unknown 01/13/2025 6:26 AM CDT 01/13/2025 6:31 AM CDT us Amador Hernandez MD CHEMISTRY ORDERABLES Final R esult Performing Organization Address [facility] Co de Phone Number [facility] CLIA # [id number] [facility] [address] from Last 3 Months Additional Health Concerns Active Problems Noted Date Diagnosed Date Autogenerated Problem 03/27/2025 Insurance [facility] DUAL COMPLETE O [facility] [id number] [place]ICAID [place] INFOCROSSING Medicaid Advance Directives For more information, please contact: [phone] * Full Code (Latest Code Status on [...] 5:29 PM 01/09/2024 6:14 PM Care Teams Stitch Rubber Relationship Specialty Start Date End Date Mahamed Sales MD [address] [address] PCP - General Family Practice 06/17/24
--- OUTSIDE RECORDS SUMMARY | 2025-04-14 09:21 | XMS_ITS | Clinical Summary ---
Author Organization [facility] Address [address] [place] [address] Phone Care Team Providers Care Wafer Machine Operator Name Role Phone Unavailable Primary Care Provider [...] Health Maintenance Due Date Last Done Comments DTAP/TDAP/TD VACCINES (1 - Tdap) 2005 HEPATITIS B VACCINES (1 of 3 - 19+ 3-dose series) 01/2006 HPV VACCINES (1 - 3-dose SCDM series) 2013 INFLUENZA VACCINE (#1) 2025
--- OUTSIDE RECORDS SUMMARY | 2025-04-14 09:21 | XMS_ITS | Encounter Summary ---
Author Organization [facility] Address 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 Gender Identity Not on file Sexual Orientation Not on file documented as of this encounter Plan of Treatment Upcoming Encounters Date Type Department Care Team (Latest Contact Info) Description 04/17/2025 9:10 AM CDT Appointment [facility] [place] [address] [place] [address] Baldo Blas MD [address] [place] [address] 05/08/2025 1:00 PM CDT Hospital Encounter [facility] [address] [place] [address] John Lynch MD [address] [address] 05/08/2025 1:00 PM CDT - 05/08/2025 1:40 PM CDT Surgery [facility] [address] [place] [address] John Lynch MD [address] [place] [address] ESOPHAGOGASTRODUODENOSCOPY WITH ENDOSCOPIC ULTRASOUND 10/09/2025 10:00 AM CDT Office Visit [facility] [place] [address] [place] [phone] Josh Sanchez MD [address] [place] [phone] Scheduled Procedures Name Priority Associated Diagnoses Date/Ti me ESOPHAGOGASTRODUODENOSCOPY W [facility] ENDOSCOP[facility] ULTRASOUND Z90.411 (ICD-10-CM) - V88.12 (ICD-9-CM) - History of partial pancreatectomy, pancreatic pseudocyst, dilated pancreatic duct, hx of pancreatitis 05/08/2025 1:00 PM CDT documented as of this encounter Goals Goal Patient Goal Type Associated Problems Recent Progress Patient-Stated? Author Autogenerat ed Goal Care Plan Autogenerated Problem No Becky Garcia, RN documented as of this encounter Visit Diagnoses Not on filedocumented in this encounter Additional Health Concerns Active Problems Noted Date Diagnosed Date Autogenerated Problem 03/27/2025 documented as of this encounter Care Teams Oceanographer Physical Relationship Specialty Start Date End Date Mahamed Sales MD [address] [address] PCP - General Family Practice 06/17/24 documented as of this encounter
[2025-04-14 09:28] LABS: Hematocrit 38.1 % (37-53); Hemoglobin 13.80 g/dL (11.27-16.99); Mean Corpuscular HGB Conc 36.2 g/dL (30-55); Mean Corpuscular Hemoglobin 32.8 pg (27-33); Mean Corpuscular Volume 90.5 fl (82-101); Nucleated Red Blood Cells % 0 %; Platelet Count 458 10^3/cmm (157-399); Red Blood Count 4.21 10^6/uL (3.85-5.65); White Blood Count 10.12 10^3/uL (3.29-11.43)
[2025-04-14] MEDS: ondansetron 2 mg/ML SDV 2 mL 4 MG IVP (09:37)
[2025-04-14] MEDS: morphine 4 mg/mL SDV 1 mL IVP ×6 (09:38→23:19)
[2025-04-14 10:14] LABS: Troponin(5th) Baseline < 6 ng/L (0-15)
--- NOTE | 2025-04-14 10:17 | CT_ITS ---
WS: [id number] CT ABDOMEN PELVIS TECHNIQUE: Contrast-enhanced CT of the abdomen and pelvis with coronal and sagittal reformatted images. CLINICAL INFORMATION: abd pain COMPARISON: 02/26/2025 DLP: 489.[address] scans at [facility] use at least one of these dose optimization techniques: automated exposure control; mA and/or kV adjustment per patient size (includes targeted exams where dose is matched to clinical indication); or iterative reconstruction. FINDINGS: Fatty liver. Lung bases are well aerated. Large pancreatic pseudocyst with thick wall today measures 5.3 x 4.8 cm. Previously this measured 4.4 x 4.1 cm by my measurements. Associated localized mass effect on the surrounding structures including the duodenum and C-loop. Inflammatory stranding and edema about the head of the pancreas extending and about the traversing duodenum compatible with acute pancreatitis. Chronic pancreatic ductal dilatation. Normal portal vein. Prior splenectomy. Evidence of gastritis and duodenitis. Reactive thickening involving the duodenum. Adrenal glands are normal. Normal renal parenchymal enhancement. No hydronephrosis. Tiny LEFT renal cyst. Normal caliber abdominal aorta. Celiac and SMA are patent. Few sigmoid diverticuli. Small fat-containing umbilical hernia. CT/CT abdomen pelvis w con* [id number] IMPRESSION: 1. Suspected acute pancreatitis with inflammatory stranding and edema about th e pancreatic head. 2. Increasing pancreatic head pseudocyst described above with localized mass e ffect measuring 5.3 x 4.8 cm today. 3. Evidence of gastritis and duodenitis. 4. No other acute findings. Notified Isael Noble DO at 04/14/2025 11:48 AM.
[2025-04-14 10:20] LABS: Alanine Aminotransferase 197 U/L (0-41); Albumin Level 3.8 g/dL (3.5-5.2); Anion Gap 17.4 (5-19); Aspartate Amino Transferase 161 U/L (0-40); Blood Urea Nitrogen 5 mg/dL (6-20); Calcium 9.0 mg/dL (8.5-10.5); Carbon Dioxide 27 mmol/L (22-29); Chloride 102 mmol/L (98-107); Creatinine Clr Calc Pharmacy 211.2896; Globulin 2.7 g/dL (1.3-4.6); Glucose 116 mg/dL (65-115); Osmolality Calculated 292 mOsm/kg (285-295); Potassium 4.4 mmol/L (3.5-5.1); Sodium 142 mmol/L (136-145); Total Protein 6.5 g/dL (6.6-8.7)
[2025-04-14 10:29] LABS: Alkaline Phosphatase 1112 U/L (40-130)
--- NOTE | 2025-04-14 10:34 | US_ITS ---
WS: [id number] RIGHT UPPER QUADRANT ULTRASOUND HISTORY: Abdominal pain COMPARISON: CT 02/26/2025 Liver: 16.2 cm in length. Normal size liver and echogenicity. No bile duct dilatation or mass. Portal Vein: Normal hepatopetal flow with monophasic waveform. Gallbladder: Gallbladder is normally distended. No pericholecystic fluid or wall thickening. There is a small amount of debris floating within the gallbladder which may be sludge. No stones. CBD: 0.5 cm Pancreas: Poorly visualized. Reidentified is the cystic mass previously described at the pancreatic head which measures 4.1 x 4.2 x 4.6 cm. Not changing significantly in size since most recent CT of 02/26/2025. This is most likely a pseudocyst. Right kidney: 11.4 cm in length. Normal size and echogenicity. No hydronephrosis or mass. Aorta and IVC: Limited. No ascites. US/US gall bladder [id number] IMPRESSION: 1. Minimal amount of sludge in the gallbladder. No stones. 2. Cystic mass in the pancreatic head measuring 4.1 x 4.2 x 4.6 cm. Stable in size since 02/26/2025 and thought to be a pseudocyst.
[2025-04-14 10:53] LABS: INR 0.92 (0.8-1.2); Prothrombin Time 13.00 SECONDS (12.1-14.9)
[2025-04-14 10:54] LABS: Partial Thromboplastin Time 24.6 SECONDS (23.9-36.7)
[2025-04-14 10:56] LABS: Ammonia 92 umol/L (16-60)
--- NOTE | 2025-04-14 11:13 | ECG_ITS ---
[facility] Test Date: 2025-04-14 Pat Name: Elena Hernandez Department: Room: Gender: Male Acid Maker: : 1985 Requested By: Isael Flores Order Number: [id number] Reading MD: JACKSON ESPARZA Measurements Intervals [place] Rate: 74 P: 60 [place]: 145 QRS: 55 QRSD: 90 T: 45 QT: 392 QTc: 436 Interpretive Statements SINUS RHYTHM Compared to ECG 04/14/2025 09:13:13 No significant changes Electronically Signed On 04-14-2025 20:15:24 CDT by JACKSON ESPARZA [email or web address] [id number]
[2025-04-14] MEDS: iohexol 350 mg/mL 500 mL Btl (per mL) IV (11:21)
[2025-04-14 11:27] LABS: Lipase 40 U/L (13-60)
[2025-04-14] MEDS: morphine 4 mg/mL SDV 1 mL 2 MG IVP (11:28)
[2025-04-14 12:16] LABS: Troponin 5 2HR < 6.0 ng/L (0-15); Troponin 5 2HR Delta 0 ABS# (0-10)
--- NOTE | 2025-04-14 14:06 | PM.HP ---
Providers/Chief Complaint Primary Care Provider: Mahamed Sales MD Chief Complaint: chest pain History of Present Illness Elena Hernandez is a 39 year old male who is status post abdominal trauma resulting in partial pancreatectomy and splenectomy. Patient has had recurrent acute pancreatitis and known pseudocyst for years now. He is followed by Dr. Sanchez a GI specialist at [facility]. Patient presented with 2 weeks of abdominal pain. He states that this was getting worse and that is finally what brought him in. Patient has a extensive history of alcohol abuse and he still drinks 5 tall boys a day which is the equivalent of 812 ounce beers a day. He has been able to eat per his usual once a day. He says the pain is not worsened by eating. He states some relief comes if he is in a hot shower or hot bath. He has had some nausea and occasional vomiting. There has been no vomiting in the past 24 hours. In the emergency room studies show a return of the pseudocyst approximately 5 x 5 cm. The common bile duct is 5 mm. There is evidence of gastritis and duodenitis. And evidence of pancreatitis. Our ER physician contacted the GI specialist at [facility] and reviewed the case. The GI specialist stated they would not plan to do anything differently than the usual acute pancreatitis treatment with IV fluids pain medication and n.p.o. status. The pseudocyst has been chronic and on and off. And at this size they would not drain it. The patient will be admitted to the general medical floor for the usual treatment of acute pancreatitis Review of Systems General: Reports: 10 or more systems reviewed and unremarkable except in HPI and below Medications/Allergies Home Medications ?Medication ?Instructions ?Recorded ?Confirmed ?Last Taken ?Type thiamine mononitrate (vit B1) 100 100 mg PO DAILY #90 tabs 03/03/23 04/14/25 04/13/25 Rx mg tablet (Vitamin B-1 (mononitrate)) aspirin 81 mg chewable tablet 81 mg PO DAILY 06/22/23 04/14/25 04/13/25 History (Children's Aspirin) levocetirizine 5 mg tablet 5 mg PO DAILY 10/31/23 04/14/25 04/13/25 History magnesium 250 mg tablet 250 mg PO .QOD 12/23/23 04/14/25 04/13/25 History pantoprazole 40 mg tablet,delayed 40 mg PO DAILY #10 tabs 01/27/24 04/14/25 04/13/25 Rx release (Protonix) pregabalin 25 mg capsule (Lyrica) 25 mg PO DAILY 03/03/24 04/14/25 04/13/25 History lisinopril 20 mg tablet 20 mg PO DAILY 10/10/24 04/14/25 04/13/25 History mirtazapine 30 mg tablet (Remeron) 30 mg PO .HS #30 tabs 02/05/25 04/14/25 04/13/25 Rx naltrexone microspheres 380 mg 380 mg IM .[id number] #1 ea 02/14/25 04/14/25 04/10/25 Rx intramuscular suspension,extended release metoclopramide HCl 10 mg tablet 10 mg PO Q6H PRN nausea and 02/24/25 04/14/25 Unknown Rx (Reglan) vomiting #14 tabs varenicline tartrate 1 mg tablet 1 mg PO BID #56 tabs 03/07/25 04/14/25 04/13/25 Rx (Chantix Continuing Month Box) buspirone 15 mg tablet 30 mg (2 x 15 mg) PO BID #120 tabs 03/21/25 04/14/25 04/13/25 Rx atomoxetine 60 mg capsule 60 mg PO DAILY #30 caps 04/04/25 04/14/25 04/13/25 Rx sertraline 100 mg tablet (Zoloft) 150 mg (1.5 x 100 mg) PO DAILY #45 04/04/25 04/14/25 04/13/25 Rx tabs ondansetron 4 mg disintegrating 4 mg PO Q6H PRN Nausea 04/14/25 04/14/25 Unknown History tablet Allergies Allergy/AdvReac Type Severity Reaction Status Date / Time acamprosate Allergy Intermediate ADR-Depress Verified 04/14/25 09:22 ion piperacillin (From Zosyn) Allergy ADR-Swelling Verified 04/14/25 09:22 of the Eye tazobactam (From Zosyn) Allergy ADR-Swelling Verified 04/14/25 09:22 of the Eye PFSH Acute PFSH: Medical History Alcohol use disorder, severe, dependence History of ADHD Alcohol use disorder, moderate, dependence Generalized anxiety disorder Cannabis use disorder Pseudocyst, pancreas Abdominal pain Acute pancreatitis Drug allergy Acute chest wall pain Acute pancreatitis Psychiatric care Tobacco use Hypomagnesemia Hepatomegaly Transaminitis Alcohol intoxication Alcoholism Esophagitis Alcohol intoxication Acute pancreatitis Pseudocyst of pancreas Polysubstance abuse History of suicide attempt C7 cervical fracture C2 cervical fracture L4 vertebral fracture Alcohol abuse PTSD (post-traumatic stress disorder) Elevated transaminase level Pancreatitis, alcoholic, acute Surgical History History of appendectomy History of splenectomy Family History Other Diabetes Social History Smoking and tobacco/nicotine status: current every day tobacco/nicotine user Alcohol intake: current Alcohol intake frequency: 3 or more drinks per day Alcohol type: hard liquor Substance/Drug Use: current Substance/Drug use frequency: daily Adopted: No Caregiver/support person: No Lives independently: No Household members: significant other Marital status: Number of children: 4 Highest education level completed: 12th Grade, No Diploma Current occupational status: unemployed Pets and animals: Yes Leisure activites: other Leisure activities details: None at this time Sexually active: Yes Do you think of yourself as: Straight/Heterosexual Current gender identity: Male Mary Lou/Anabaptist: Lutheran Special mary lou needs: No Agree to transfusion: Yes Vitals/I&O/Wt Last Vital Signs Temp 97.9 F 04/14/25 09:12 Pulse 90 04/14/25 09:12 Resp 12 04/14/25 13:34 BP 135/95 04/14/25 09:12 Pulse Ox 98 04/14/25 13:34 04/13/25 04/14/25 04/14/25 22:59 06:59 14:59 Intake Total 0 / 0 Balance 0 / 0 Weight last 48 hrs Weight 73.482 kg Physical Exam Narrative: Patient is alert and oriented to person place time and situation he is nonfocal HEENT: Head is normocephalic atraumatic pupils equal round reactive to light and accommodation extraocular muscles are intact there is no scleral icterus, mucous membranes are moist and pink without lesions or exudates Neck: Is supple no JVD carotid bruits or lymphadenopathy Heart: Distant heart sounds normal S1-S2 without loud murmur Lungs: Diminished throughout without wheezes rales or rhonchi abdomen: Midline well-healed scar is present. Tenderness in the epigastric area. No rebound rigidity or significant guarding Extremities: No clubbing cyanosis or edema Psych: Mood and affect are appropriate for condition Back: No significant kyphosis or scoliosis no CVA tenderness Skin: Multiple abrasions and bruises noted on all 4 extremities appearing chronic Data 04/14/25 09:22 04/14/25 09:52 Other Labs: Lipase is normal Ammonia 9 2 Bilirubin 4.3 its been 7.1 on 02/26/2025 AST 161, ALT 197, alkaline phosphatase 1112 PT/INR/PTT are normal CT Abd/Pel: Radiologist's impression: IMPRESSION: 1. Suspected acute pancreatitis with inflammatory stranding and edema about the pancreatic head. 2. Increasing pancreatic head pseudocyst described above with localized mass effect measuring 5.3 x 4.8 cm today. 3. Evidence of gastritis and duodenitis. 4. No other acute findings. US: Radiologist's impression: US/US gall bladder [id number] IMPRESSION: 1. Minimal amount of sludge in the gallbladder. No stones. 2. Cystic mass in the pancreatic head measuring 4.1 x 4.2 x 4.6 cm. Stable in size since 02/26/2025 and thought to be a pseudocyst. CXR: Radiologist's impression: IMPRESSION: A few linear opacities seen in the left lung base likely represents atelectasis A&P Assessment and plan 1. Acute pancreatitis without infection or necrosis, unspecified pancreatitis type: Patient's admitting diagnosis is acute pancreatitis as read on the CT report. It is interesting that his lipase is normal. I wonder if despite CT report this is more of a chronic pancreatitis. Patient continues to drink alcohol he states he is weaning himself off because in the past he has had a seizure when he tried to stop too quick. Also I noted there is 2 medications that he is on that could also cause pancreatitis and these are class 2 drugs associated with acute pancreatitis, which are an SSRI and an FIFI inhibitor. In class IV there is also pantoprazole which he also takes. I will return to find out if any of these are more recently started 2. Alcohol use disorder, severe, dependence: Will assess for withdrawal and use Librium as needed. 3. Elevated LFTs: Monitor and follow expectantly 4. Pseudocyst of pancreas: 5.3 x 4.8 cm Per [facility] GI specialist since it is less than 6 cm they would not plan on draining. On 08/10/2024 they did an endoscopy with the intention to drain the pseudocyst however it had been resorbed at that time. Plan: Patient is placed in observation status for the typical treatment for pancreatitis. He will be n.p.o. except for sips and chips, IV fluids, IV pain medication. I will hold all meds that have been associated with causing pancreatitis. I will have to change from Pantoprozole to Pepcid. He has been counseled to quit alcohol and I advised him he could drop 1 drink a day and should have success. I also suggested a detox program. He and his fianc?e state he has already tried that and failed. PDMP PDMP Reviewed: Not Reviewed Attestations Medical Necessity Statement*: Patient is placed in observation status for the treatment of acute pancreatitis. Coding Level of Care Code Acute Code for [facility] Fwd Diagnoses Acute pancreatitis without infection or necrosis, unspecified pancreatitis type K85.90 Pancreatitis type: unspecified pancreatitis type Acute pancreatitis complication: no infection or necrosis Alcohol use disorder, severe, dependence F10.20 Elevated LFTs R79.89 Pseudocyst of pancreas K86.3
--- NOTE | 2025-04-14 15:28 | ECG_ITS ---
[facility]25[facility]14 Pat Name: Elena Hernandez Department: Room: [facility] Gender: Male Estate Administrator: : 1985 Requested By: Isael Flores Order Number: [id number] Reading MD: JACKSON ESPARZA Measurements Intervals [place] Rate: 64 P: 61 IN: 140 QRS: 60 QRSD: 97 T: 51 QT: 416 QTc: 429 Interpretive Statements SINUS RHYTHM Compared to ECG 04/14/2025 11:44:57 No significant changes Electronically Signed On 04-14-2025 20:15:06 CDT by JACKSON ESPARZA [email or web address] [id number]
[2025-04-14 16:26] LABS: Troponin 5 6HR < 6.0 ng/L (0-15); Troponin 5 6HR Delta 0 ng/L (0-12)
--- NOTE | 2025-04-14 16:37 | PC.NURSE ---
This nurse took report from BRITTANY Moran in ER at 1636.
[2025-04-14] MEDS: heparin 5,000 unit/mL INJ 1 mL 5000 UNIT SUBCUT (17:16)
[2025-04-14] MEDS: D5-NS 0.45% + KCL 20 mEq 20 MEQ/1,000 ML BAG 75 MEQ IV (17:17)
--- OUTSIDE RECORDS SUMMARY | 2025-04-14 17:32 | XMS_ITS | Clinical Summary ---
Author Organization [facility] Address [address] Attn: Epic Prelude ADT CARLA SCHULER [address] Care Team Providers Care Strategic Buyer Name Role Phone Mahamed Sales MD Primary Care Provider [phone]- [phone] Allergies Active Allergy Reactions Criticality Noted Date [...] mouth daily. Active naloxone (NARCAN) 4 mg/spray [place], Non-Aerosol EMERGENCY USE ONLY: Administer 1 spray [...] Abstract 03/27/2025 12:20 PM CDT Office Visit [facility] [address] [place] [phone] Lacie Summers PA Cervical radiculopathy (Primary Dx) 03/27/2025 10:20 AM CDT [facility] [place] [phone] Josh Sanchez MD Dilated pancreatic duct (Primary Dx); Pancreatic pseudocyst; Chronic pancreatitis, unspecified pancreatitis type (CMS/HCC); History of partial pancreatectomy; H/O splenectomy; Elevated LFTs 03/27/2025 Refill [facility] [place] [phone] Josh Sanchez MD 03/27/2025 Orders Only [facility] [place] [phone] Becky Garcia RN 03/22/2025 External Device Data STL ABSTRACTION Provider, Abstract 03/21/2025 Refill [facility] [place] [phone] Josh Sanchez MD 03/13/2025 Orders Only [address] [place] [phone] Noreen Delgado, EDUCATION AND DEVELOPMENT MANAGER Acute hepatitis B without delta-agent and without hepatic coma (Primary Dx) 03/07/2025 External Device Data STL ABSTRACTION Provider, Abstract 02/15/2025 External Device Data STL ABSTRACTION Provider, Abstract 02/15/2025 External Device Data STL ABSTRACTION Provider, Abstract 02/15/2025 External Device Data STL ABSTRACTION Provider, Abstract 02/15/2025 External Device Data STL ABSTRACTION Provider, Abstract 02/08/[address] [phone] Josh Sanchez MD 02/07/2025 External Device Data STL ABSTRACTION Provider, Abstract 02/07/2025 External Device Data STL ABSTRACTION Provider, Abstract 01/18/2025 External Device Data STL ABSTRACTION Provider, Abstract 01/17/2025 External Device Data STL ABSTRACTION Provider, Abstract 01/17/2025 External Device Data STL ABSTRACTION Provider, Abstract 01/11/2025 11:36 PM CDT - 01/14/2025 6:21 PM CDT Hospital Encounter [facility] [address] [place] [address] Davidson Beatty MD Sundaram, Vignesh, MD [place], [...] PNEUM OCOCCAL CONJUGATE VACCINE 20-VALENT (PCV20), POLYSACCHARIDE IAM529 CONJUGATE, ADJUVANT 0.5 ML (PF) IM 06/18/2024 [...] on file 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 Gender Identity Not on file Sexual Orientation [...] Info) Description 04/17/2025 9:10 AM CDT Appointment [facility] Pain Management Procedures [place] [address] [place] [address] Baldo Blas MD [address] [address] 05/08/2025 1:00 PM CDT Hospital Encounter [facility] [address] [place] [address] John Lynch MD [address] [address] 05/08/2025 1:00 PM CDT - 05/08/2025 1:40 PM CDT Surgery [facility] [address] [place] [address] John Lynch MD [address] [address] ESOPHAGOGASTRODUODENOSCOPY WITH ENDOSCOPIC ULTRASOUND 10/09/2025 10:00 AM CDT Office Visit [facility] [place] [address] [facility] [address] [place] [address] Josh Sanchez MD [address] [facility] [address] [place] [address] Scheduled Procedures Name Priority Associated Diagnoses Date/Ti me ESOPHAGOGASTRODUODENOSCOPY W ITH ENDOSCOPIC ULTRASOUND Z90.411 (ICD-10-CM) - V88.12 (ICD-9-CM) - History of partial pancreatectomy, pancreatic pseudocyst, dilated pancreatic duct, hx of pancreatitis 05/08/2025 1:00 PM CDT Health Maintenance Due Date Last Done Comments HPV VACCINES (1 - 3-dose SCD M series) 2013 [place] Preventative Visit/Annual Wellness Visit 08/03/2024 INFLUENZA VACCINE (#1) 2025 DTAP/TDAP/TD VACCINES (8 - T d or Tdap) 10/16/2032 10/16/2022, 10/26/2013, 05/02/2002, Additional history exists HEPATITIS B VACCINES Completed 10/17/1999, 02/07/1999, 01/08/1999 Goals Goal Patient Goal Type Associated Problems Recent Progress Patient-Stated? 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 For additional information, please refer to http://[facility].Peak[employer]/faq/WSI098 (This link is being provided for informational/ educational purposes only). Test Performed at: [facility] [address] Trevor Morton MD Blood 03/27/2025 1:12 PM CDT 03/27/2025 1:12 PM CDT Josh Sanchez MD CHEMISTRY ORDERABLES Megan l Result Performing Organization Address [facility] de Phone Number [facility] [phone] [facility] [employer] [address] * HEPATITIS B CORE AB TOTAL (03/27/2025 1:12 PM CDT) HEPATITIS B CORE AB NON-REACTI VE NON-REACTI VE [facility] Comment: For additional information, please refer to http://[facility].[employer]/faq/IDS382 (This link is being provided for informational/ educational purposes only.) Test Performed at: [facility] [address] Trevor Morton MD Blood 03/27/2025 1:12 PM CDT 03/27/2025 1:12 PM CDT Josh Sanchez MD CHEMISTRY ORDERABLES Megan l Result Performing Organization Address [facility] Co de Phone Number [facility] [phone] [facility] [employer] [address] * HEPATITIS B SURFACE ANTIGEN (03/27/2025 1:12 PM CDT) HEPATITIS B SURFACE AG NON-REACTI VE NON-REACTI VE [facility] [employer] [facility] Comment: For additional information, please refer to http://education.H[employer] Video/faq/IKK352 (This link is being provided for informational/ educational purposes only.) Test Performed at: [place] [address] [facility] [place] [place] [address] Trevor Morton MD Blood 03/27/2025 1:12 PM CDT 03/27/2025 1:12 PM CDT Josh Sanchez MD CHEMISTRY ORDERABLES Megan l Result Performing Organization Address [facility] de Phone Number [facility] [phone] [facility] [address] [place] [address] [place] [address] * VITAMIN B12 AND FOLATE (03/27/2025 1:12 PM CDT) Pathologist [facility] VITAMIN B12 992 200 - 1100 pg/mL [facility] FOLATE, SERUM 14.4 ng/mL [facility] Comment: Reference Range Low: <3.4 Borderline: 3.4-5.4 Normal: >5.4 Test Performed at: [place] [place] [address] Trevor Morton MD Blood 03/27/2025 1:12 PM CDT 03/27/2025 1:12 PM CDT Josh Sanchez MD CHEMISTRY ORDERABLES Megan l Result Performing Organization Address [facility] Co de Phone Number [facility] [phone] [place] [address] [place] [address] * VITAMIN A LEVEL (03/27/2025 1:12 PM CDT) Pathologist [facility] VITAMIN A LEVEL 63 38 - 98 mcg/dL [facility] Comment: (Note) Clin Chem Vol. 34.No.8. [id number]. 1998 Vitamin supplementation within 24 hours prior to blood draw may affect the accuracy of results. This test was developed and its analytical performance characteristics have been determined by [facility]. It has not been cleared or approved by the FDA. This assay has been validated pursuant to the CLIA regulations and is used for clinical purposes. [facility] [address] [place] [address],[address] [facility] [address] Carlos Benton MD, PhD Test Performed at: [facility] [address] [place] [address], [address] [place] [address] Carlos Benton MD,PhD Blood 03/27/2025 1:12 PM CDT 03/27/2025 1:12 PM CDT Josh Sanchez MD CHEMISTRY ORDERABLES Megan l Result [facility] [phone] [facility] [address] [place] [address], [address] [place] [phone] * HEPATITIS C ANTIBODY W REFLEX (03/27/2025 1:12 PM CDT) HEPATITIS C AB NON-REACTI VE NON-REACT MARIELY [facility] Comment: HCV antibody was non-reactive. There is no laboratory evidence of HCV infection. In most cases, no further action is required. However, if recent HCV exposure is suspected, a test for HCV RNA (test code 90172) is suggested. For additional information please refer to http://education.Peak.[facility] [employer]/faq/GBV81o7 (This link is being provided for informational/ educational purposes only.) Test Performed at: [facility] [address] [place] [address] Trevor Morton MD Blood 03/27/2025 1:12 PM CDT 03/27/2025 1:12 PM CDT us Josh Sanchez MD CHEMISTRY ORDERABLES Megan l Result [facility] [phone] [facility] [address] [place] [address] * HEPATITIS B VIRAL DNA QUANTITATIVE PCR (03/27/2025 1:12 PM CDT) [facility] HEPATITIS B VIRAL DNA QNT PCR NOT DETECTED NOT DETECTED IU/mL [facility] [place] HEPATITIS B VIRAL DNA QNT PCR NOT DETECTED NOT DETECTED Log IU/mL [facility] [place] Comment: This test was performed using Real-Time Polymerase Chain Reaction. Reportable Range: 10 IU/mL to 1,000,000,000 IU/mL. (1.00 Log IU/mL to 9.00 Log IU/mL). Test Performed at: [facility] [address] Trevor Morton MD Blood 03/27/2025 1:12 PM CDT 03/27/2025 1:12 PM CDT Josh Sanchez MD CHEMISTRY ORDERABLES Megan l Result Performing Organization Address [facility] Co de Phone Number [facility] [phone] [facility] [employer] [address] * HEPATITIS B CORE IGM (03/27/2025 1:12 PM CDT) [facility] HEPATITIS B CORE IGM NON-REACTI VE NON-REACTI VE [facility] Comment: For additional information, please refer to http://education.HapYak [employer] Video/faq/SGS288 (This link is being provided for informational/ educational purposes only.) Test Performed at: [facility] [address] Trevor Morton MD Blood 03/27/2025 1:12 PM CDT 03/27/2025 1:12 PM CDT Josh Sanchez MD CHEMISTRY ORDERABLES Megan l Result Performing Organization Address [facility]/ZIP Co de Phone Number [facility] [phone] [facility] [address] * HEPATITIS BE ANTIGEN (03/27/2025 1:12 PM CDT) HEPATITIS BE AG NON-REACTI VE NON-REACTI VE [facility] Comment: For additional information, please refer to http://[facility].[employer]/faq/AVP947 (This link is being provided for informational/ educational purposes only.) Test Performed at: [facility] [address] Trevor Morton MD Blood 03/27/2025 1:12 PM CDT 03/27/2025 1:12 PM CDT Josh Sanchez MD CHEMISTRY ORDERABLES Megan l Result Performing Organization Address [facility] Co de Phone Number [facility] [phone] [facility] [employer] [address] * HEPATITIS BE ANTIBODY (03/27/2025 1:12 PM CDT) Pathologist [facility] HEPATITIS BE AB NON-REACTI VE NON-REACTI VE [facility] [employer] Comment: For additional information, please refer to http://[facility].[employer]/faq/ZBD246 (This link is being provided for informational/ educational purposes only.) Test Performed at: [facility] [address] Trevor Morton MD Blood 03/27/2025 1:12 PM CDT 03/27/2025 1:12 PM CDT Josh Sanchez MD CHEMISTRY ORDERABLES Megan l Result Performing Organization Address City/[facility]/ZIP Co de Phone Number [facility] [phone] [facility] [employer] [address] * VITAMIN D 25 HYDROXY (03/27/2025 1:12 PM CDT) VITAMIN D, 25 OH, TOTAL 57 30 - 100 ng/mL [facility] Comment: Vitamin D Status 25-OH Vitamin D: Deficiency: <20 ng/mL Insufficiency: 20 - 29 ng/mL Optimal: > or = 30 ng/mL For 25-OH Vitamin D testing on patients on D2-supplementation and patients for whom quantitation of D2 and D3 fractions is required, the [facility]ure[facility](TM) 25-OH VIT D, (D2,D3), LC/MS/MS is recommended: order code 16602 (patients >2yrs). See Note 1 Note 1 For additional information, please refer to http://[facility].[employer]/faq/QHX672 (This link is being provided for informational/ educational purposes only.) Test Performed at: [facility] [address] [place] [address] Trevor Mroton MD Blood 03/27/2025 1:12 PM CDT 03/27/2025 1:12 PM CDT us Josh Sanchez MD CHEMISTRY ORDERABLES [facility] Result [facility] [phone] [facility] [address] [facility] [place] [address] * PROTIME-INR (03/27/2025 1:12 PM CDT) Only the most recent of2 resultswithin the time period is included. Pathologist [facility] INR 1.0 [facility] Comment: Reference Range 0.9-1.1 Moderate-intensity Warfarin Therapy 2.0-3.0 Higher-intensity Warfarin Therapy 3.0-4.0 PROTIME 10.3 9.0 - 11.5 sec [facility] Comment: For additional information, please refer to http://[facility].[employer] Video/faq/OZQ047 (This link is being provided for informational/ educational purposes only.) Test Performed at: [facility] [address] [place] [address] Clay Rogers Blood 03/27/2025 1:12 PM CDT 03/27/2025 1:12 PM CDT Josh Sanchez MD HEMATOLOGY ORDERABLES Fin al Result Performing Organization Address City/[facility]/ZIP Co de Phone Number [facility] [phone] [facility] [address] [place] [address] * VITAMIN E LEVEL (03/27/2025 1:12 PM CDT) [facility] VITAMIN E (ALPHA TOCOPHEROL) 11.5 5.7 - 19.9 mg/L [facility] Comment:Levels of alpha-toco pherol <5 mg/L are consistent with Vitamin E deficiency in adults. VITAMIN E BETA GAMMA 1.2 <4.4 mg/L [email or web address] Comment: (Note) Vitamin supplementation within 24 hours prior to blood draw may affect the accuracy of results. This test was developed and its analytical performance characteristics have been determined by [facility]. It has not been cleared or approved by the FDA. This assay has been validated pursuant to the CLIA regulations and is used for clinical purposes. [facility] med fusion [address] [place] [address],[address] [place] [address] Carlos Benton MD, PhD Test Performed at: [facility] [address] [place] [address], [address] [place] [address] Carlos Benton MD,PhD Blood 03/27/2025 1:12 PM CDT 03/27/2025 1:12 PM CDT Josh Sanchez MD CHEMISTRY ORDERABLES Megan l Result [facility] [phone] [facility] [address] [place] [address], [address] [place] [address] * (ABNORMAL) COMPREHENSIVE METABOLIC PANEL (03/27/2025 1:12 PM CDT) Only the most recent of3 resultswithin the time period is included. GLUCOSE 162(H) 65 - 99 mg/dL [facility] Comment: Fasting reference interval For someone without known diabetes, a glucose value >125 mg/dL indicates that they may have diabetes and this should be confirmed with a follow-up test. BUN 10 7 - 25 mg/dL [facility] RR CREATININE 0.74 0.60 - 1.26 mg/dL [facility] GFR 119 > OR = 60 mL/min/1. 73m2 [facility] RR BUN/CREAT RATIO SEE NOTE: 6 (calc) [facility] RR Comment: Not Reported: BUN and Creatinine are within reference range. SODIUM 138 135 - 146 mmol/L [facility] POTASSIUM 4.8 3.5 - 5.3 mmol/L [facility] CHLORIDE 98 98 - 110 mmol/L [facility] CO2 33(H) 20 - 32 mmol/L [facility] CALCIUM 10.2 8.6 - 10.3 mg/dL [facility] T[facility] PROTEIN 8.3(H) 6.1 - 8.1 g/dL [facility] ALBUMIN 5.2(H) 3.6 - 5.1 g/dL [facility] GLOBULIN 3.1 1.9 - 3.7 g/dL (calc) [facility] RR ALBUMIN/GLOBULIN RATIO 1.7 1.0 - 2.5 (calc) [facility] RR BILIRUBIN TOTAL 1.1 0.2 - 1.2 mg/dL [facility] ALKALINE PHOSPHATASE 356(H) 36 - 130 U/L [facility] AST 76(H) 10 - 40 U/L [facility] ALT 98(H) 9 - 46 U/L [facility] Comment: Test Performed at: [facility] RR [address] [place] [address] Clay Rogers Blood 03/27/2025 1:12 PM CDT 03/27/2025 1:12 PM CDT us Josh Sanchez MD CHEMISTRY ORDERABLES Megan l Result [facility] [phone] [facility] [address], [place] [address] * TELEMETRY REPORT (01/18/2025 3:08 PM CDT) [...] - 11.0 K/uL 01/13/2025 6:37 AM T [facility] RBC 4.09(L) 4.60 - 6.20 M/uL 01/13/2025 6:37 AM T [facility] HEMOGLOBIN 14.0 14.0 - 18.0 g/dL 01/13/2025 6:37 AM [facility] HEMATOCRIT 39.7(L) 41.0 - 53.0 % 01/13/2025 6:37 AM T [facility] MCV 97.1 84.0 - 103.0 fL 01/13/2025 6:37 AM T [facility] MCH 34.2(H) 27.0 - 34.0 pg 01/13/2025 6:37 AM T [facility] MCHC 35.3(H) 30.0 - 35.0 g/dL 01/13/2025 6:37 AM T [facility] PLATELETS 227 140 - 440 K/uL 01/13/2025 6:37 AM T [facility] MPV 8.9 8.9 - 12.8 fL 01/13/2025 6:37 AM T [facility] RDW 12.7 11.0 - 14.5 % 01/13/2025 6:37 AM [facility] RDW-STDEV 45.9 37.0 - 54.0 fL 01/13/2025 6:37 AM T [facility] NEUTROPHILS 50 42 - 75 % 01/13/2025 6:37 AM T [facility] LYMPHOCYTES 31 24 - 44 % 01/13/2025 6:37 AM T [facility] MONOCYTES 10 2 - 10 % 01/13/2025 6:37 AM [facility] [employer] [facility] EOSINOPHILS 8(H) 0 - 7 % 01/13/2025 6:37 AM [facility] BASOPHILS 1 0 - 1 % 01/13/2025 6:37 AM [facility] IMMATURE GRANULOCYTES 0 0 - 2 % 01/13/2025 6:37 AM [facility] NEUTROPHIL ABSOLUTE 4.12 2.00 - 8.00 K/uL 01/13/2025 6:37 AM [facility] LYMPHOCYTE ABSOLUTE 2.60 1.20 - 4.00 K/uL 01/13/2025 6:37 AM [facility] MONOCYTE ABSOLUTE 0.79(H) 0.10 - 0.60 K/uL 01/13/2025 6:37 AM [facility] EOSINOPHIL ABSOLUTE 0.65 0.00 - 0.70 K/uL 01/13/2025 6:37 AM [facility] BASOPHILS ABSOLUTE 0.09 0.00 - 0.20 K/uL 01/13/2025 6:37 AM [facility] IMMATURE GRANULOCYTES ABSOLUTE 0.03 0.00 - 0.10 K/uL 01/13/2025 6:37 AM [facility] SMEAR REVIEWED: NA - Not Applicable 01/13/2025 6:37 AM [facility] Blood Venipuncture / Unknown 01/13/2025 6:27 AM CDT 01/13/2025 6:31 AM CDT Amador Hernandez MD HEMATOLOGY ORDERABLES Final Result Performing Organization Address City/[facility]/ZIP Co de Phone Number [facility] CLIA # [id number] [address] [place], [place] [address] * MAGNESIUM LEVEL (01/13/2025 6:26 AM CDT) Only the most recent of2 resultswithin the time period is included. MAGNESIUM 1.8 1.6 - 2.6 mg/dL 01/13/2025 7:07 AM CDT [facility] Blood Venipuncture / Unknown 01/13/2025 6:26 AM CDT 01/13/2025 6:31 AM CDT Amador Hernandez MD CHEMISTRY ORDERABLES Final R esult Performing Organization Address City/[facility] Co de Phone Number [facility] [employer] [facility] CLIA # [id number] [address] [address] from Last 3 Months Additional Health Concerns Active Problems Noted Date Diagnosed Date Autogenerated Problem 03/27/[address] [address] DUAL COMPLETE O [facility] [id number] MEDICAID [place] INFO[employer]OSSING Medicaid Advance Directives For more information, please contact: [phone] * Full Code (Latest Code Status on [...] 5:29 PM 01/09/2024 6:14 PM Care Teams Strategic Buyer Relationship Specialty Start Date End Date Mahamed Sales MD [address] [place] [phone] PCP - General Family Practice 06/17/24
--- OUTSIDE RECORDS SUMMARY | 2025-04-14 17:32 | XMS_ITS | Clinical Summary ---
Author Organization [facility] Address [address] [place] [address] Phone Care Team Providers Care Merchandise Support Associate Name Role Phone Unavailable Primary Care Provider [...]
--- OUTSIDE RECORDS SUMMARY | 2025-04-14 17:32 | XMS_ITS | Encounter Summary ---
Author Organization [facility] Address 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 Gender Identity Not on file Sexual Orientation Not on file documented as of this encounter Plan of Treatment Upcoming Encounters Date Type Department Care Team (Latest Contact Info) Description 04/17/2025 9:10 AM CDT Appointment [facility] Procedures [place] [address] [place] [address] Baldo Blas MD [address] [place] [address] 05/08/2025 1:00 PM CDT Hospital Encounter [facility] Endoscopy [address] [place] [address] John Lynch MD [address] [address] 05/08/2025 1:00 PM CDT - 05/08/2025 1:40 PM CDT Surgery [facility] Endoscopy [address] [place] [address] John Lynch MD [address] [place] [address] ESOPHAGOGASTRODUODENOSCOPY WITH ENDOSCOPIC ULTRASOUND 10/09/2025 10:00 AM CDT Office Visit [facility] Gastroenterology - [place] [address] [place] [address] Josh Sanchez MD [address] [place] [address] Scheduled Procedures Name Priority Associated Diagnoses Date/Ti me ESOPHAGOGASTRODUODENOSCOPY [facility] ENDOSCOPIC ULTRASOUND Z90.411 (ICD-10-CM) - V88.12 (ICD-9-CM) [...] documented as of this encounter Care Teams Rpg Programmer Relationship Specialty Start Date End Date Mahamed Sales MD [address] [address] PCP - General Family Practice 06/17/24 documented as of this encounter
[2025-04-15] VITALS (8 sets, daily range): BP systolic 150–161; BP diastolic 93–121; PULSE 64–73; RESP 16–19; TEMP 36.4–36.7; O2SAT 98–99; BMI 22.6
[2025-04-15] MEDS: morphine 4 mg/mL SDV 1 mL IVP ×4 (01:37→12:34)
[2025-04-15 04:09] LABS: Alanine Aminotransferase 187 U/L (0-41); Albumin Level 3.9 g/dL (3.5-5.2); Anion Gap 15.9 (5-19); Aspartate Amino Transferase 114 U/L (0-40); Blood Urea Nitrogen 6 mg/dL (6-20); Calcium 9.2 mg/dL (8.5-10.5); Carbon Dioxide 25 mmol/L (22-29); Chloride 101 mmol/L (98-107); Globulin 3.3 g/dL (1.3-4.6); Glucose 131 mg/dL (65-115); Magnesium 1.9 mg/dL (1.7-2.3); Osmolality Calculated 285 mOsm/kg (285-295); Potassium 3.9 mmol/L (3.5-5.1); Sodium 138 mmol/L (136-145); Total Protein 7.2 g/dL (6.6-8.7)
[2025-04-15 04:46] LABS: Creatinine Clr Calc Pharmacy 264.1120
[2025-04-15 04:47] LABS: Alkaline Phosphatase 1190 U/L (40-130)
[2025-04-15] MEDS: heparin 5,000 unit/mL INJ 1 mL 5000 UNIT SUBCUT (04:58)
[2025-04-15] MEDS: D5-NS 0.45% + KCL 20 mEq 20 MEQ/1,000 ML BAG 75 MEQ IV (06:44)
--- NOTE | 2025-04-15 11:43 | PC.CHAP ---
Pastoral Care Encounter/Spiritual Assessment Type of Contact [] Declined counseling specialist visit [] Patient/Family/Request visit [] Outpatient visit [] Follow-up visit [] Physician referral [] Code/Alert [x] Routine visit [] Staff referral [] Actively dying [] Patient sleeping [] Family support [] [x] Out of room [] Palliative care [] [] Receiving care in room [] Pre-surgical visit [] Trauma [] Long length of stay [] ICU visit [] Other: Relational/Emotional Strength [] Patient feels connected with others/family/visitors/staff [] Distress [] Loneliness/isolation [] Abandonment Spirituality of Patient [] Person of Mary Lou [] Attends Faith of their Mary Lou [] Believes in Prayer [] Reads Bible or Nondenominational materials [] There are Spiritual issues to be addressed Pediatric Sports Medicine Specialist Interventions [] Prayer [] Active listening [] Non-anxious presence [] Spiritual/emotional support [] Crisis/trauma care [] Spiritual counseling [] Bereavement support [] Provided bereavement packet [] Provided Bible/devotional materials [] Provided toy/stuffed animal, coloring book to patient or family member [] Provided Communion [] Anointing/[place] [] Salvation [] Completed spiritual assessment [] Other: Impact on Illness or Injury [] Angry [] Fearful [] Anxious [] Often cries [] Exhaustion [] Unable to work [] Unable to attend restorationist [] Unable to walk/stand [] Unable to read [] Unable to drive [] Unable to eat/drink [] Unable to sleep [] Unable to be with family [] Patient intubated [] Other: Summary Time spent with patient
--- NOTE | 2025-04-15 12:48 | P.DS_ITS ---
Discharge Providers Date of Admission: 04/14/25 14:40 Date of Discharge: April 15, 2025 Attending Provider at Admission: Roger Rai DO Attending Provider at Discharge: Roger Rai DO Primary Care Provider: Mahamed Sales MD Diagnoses at Discharge Discharge Diagnosis 1. Acute pancreatitis without infection or necrosis, unspecified pancreatitis type: 2. Alcohol use disorder, severe, dependence: 3. Elevated LFTs: 4. 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 Patient has had recurrent acute pancreatitis and known pseudocyst for years now. He is followed by Dr. Sanchez a GI specialist at [facility]. Patient presented with 2 weeks of abdominal pain. He states that this was getting worse and that is finally what brought him in. Patient has a extensive history of alcohol abuse and he still drinks 5 tall boys a day which is the equivalent of 812 ounce beers a day. He has been able to eat per his usual once a day. He says the pain is not worsened by eating. He states some relief comes if he is in a hot shower or hot bath. He has had some nausea and occasional vomiting. There has been no vomiting in the past 24 hours. In the emergency room studies show a return of the pseudocyst approximately 5 x 5 cm. The common bile duct is 5 mm. There is evidence of gastritis and duodenitis. And evidence of pancreatitis. Our ER physician contacted the GI specialist at [facility] and reviewed the case. The GI specialist stated they would not plan to do anything differently than the usual acute pancreatitis treatment with IV fluids pain medication and n.p.o. status. The pseudocyst has been chronic and on and off. And at this size they would not drain it. The patient will be admitted to the general medical floor for the usual treatment of acute pancreatitis Hospital Course Hospital Course Patient reports he is still in the same amount of pain which has been that way for the past 2 weeks. I am concerned that the patient has pain seeking behavior. While he has made progress with decreasing his alcohol consumption he has yet to quit. Our CT report lists acute pancreatitis. However I wonder if it is chronic. He has no lipase abnormality. His physical exam is unimpressive. I did however uncover 3 chronic medications that could be culprits and contributing to pancreatitis. The easiest to contend with is stopping his FIFI inhibitor and changing to an ARB. He is on an SSRI that is a class II drug- induced pancreatitis agent. I will wean him off of the Zoloft and initiate Cymbalta. Cymbalta will also help with chronic pain. Lastly Protonix is a class for. Considering he has gastritis and enteritis I will continue. 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 I have also given him instructions on how to quit alcohol safely. He can decrease by 1 tallboy a day and then discontinue. Physical Exam Narrative: Heart: Distant heart sounds normal S1-S2 without loud murmur Lungs: Diminished throughout without wheezes rales or rhonchi abdomen: Midline well-healed scar is present. Tenderness in the epigastric area. No rebound rigidity or significant guarding Extremities: No clubbing cyanosis or edema Note: I checked on him earlier today and he was sleeping. The first thing he says when I walked in the room is I need pain meds . Discharge Data Studies Completed and Pending Completed Studies During Hospitalization Category Date Time Status CT abdomen pelvis w con* [id number] Stat Cat Scan 04/14/25 10:17 Completed XR chest 1V portable [id number] Stat Exams 04/14/25 09:13 Completed US gall bladder [id number] Stat Ultrasound 04/14/25 10:34 Completed Pending at discharge Category Date Time Status Comprehensive Metabolic Panel AM LABS Lab 04/16/25 04:00 Ordered Comprehensive Metabolic Panel AM LABS Lab 04/17/25 04:00 Ordered Radiology Impressions Chest X-Ray 04/14/25 09:13 IMPRESSION: A few linear opacities seen in the left lung base likely represents atelectasis. Abdomen/Pelvis CT 04/14/25 10:17 IMPRESSION: 1. Suspected acute pancreatitis with inflammatory stranding and edema about the pancreatic head. 2. Increasing pancreatic head pseudocyst described above with localized mass effect measuring 5.3 x 4.8 cm today. 3. Evidence of gastritis and duodenitis. 4. No other acute findings. Notified Isael Noble DO at 04/14/2025 11:48 AM. Gallbladder Ultrasound 04/14/25 10:34 IMPRESSION: 1. Minimal amount of sludge in the gallbladder. No stones. 2. Cystic mass in the pancreatic head measuring 4.1 x 4.2 x 4.6 cm. Stable in size since 02/26/2025 and thought to be a pseudocyst. Laboratory Results WBC 10.12 10^3/uL (3.29-11.43) 04/14/25 09:22 RBC 4.21 10^6/uL (3.85-5.65) 04/14/25 09:22 Hgb 13.80 g/dL (11.27-16.99) 04/14/25 09:22 Hct 38.1 % (37-53) 04/14/25 09:22 MCV 90.5 fl (82-101) 04/14/25 09: MCH 32.8 pg (27-33) 04/14/25 09: MCHC 36.2 g/dL (30-55) 04/14/25 09:22 RDW 17.7 % (12.1-15.1) H 04/14/25 09:22 Plt Count 458 10^3/cmm (157-399) H 04/14/25 09:22 MPV 10.0 fL (7.4-10.4) 04/14/25 09:22 Neut % (Auto) 53.7 % 04/14/25 09:22 Lymph % (Auto) 30.5 % 04/14/25 09:22 [place] % (Auto) 10.6 % 04/14/25 09:22 Eos % (Auto) 3.7 % 04/14/25 09:22 Baso % (Auto) 1.2 % 04/14/25 09:22 Neut # (Auto) 5.44 10^3/uL (1.8-7.7) 04/14/25 09:22 Lymph # (Auto) 3.1 10^3/uL (0.8-4.8) 04/14/25 09:22 [place] # (Auto) 1.1 10^3/uL (0.2-0.9) H 04/14/25 09:22 Eos # (Auto) 0.4 10^3/uL (0.0-0.8) 04/14/25 09:22 Baso # (Auto) 0.1 10^3/uL (0.0-0.1) 04/14/25 09:22 Nucleated RBC % (auto) 0 % 04/14/25 09:22 Nucleated RBCs # 0.0 /100WBC 04/14/25 09:22 PT 13.00 SECONDS (12.1-14.9) 04/14/25 09:52 INR 0.92 (0.8-1.2) 04/14/25 09:52 APTT 24.6 SECONDS (23.9-36.7) 04/14/25 09:52 Sodium 138 mmol/L (136-145) 04/15/25 02:43 Potassium 3.9 mmol/L (3.5-5.1) 04/15/25 02:43 Chloride 101 mmol/L (98-107) 04/15/25 02:43 Carbon Dioxide 25 mmol/L (22-29) 04/15/25 02:43 Anion Gap 15.9 (5-19) 04/15/25 02:43 BUN 6 mg/dL (6-20) 04/15/25 02:43 Creatinine 0.4 mg/dL (0.7-1.2) L 04/15/25 02:43 GFR Calculation 240.7 mL/min (90-130) H 04/15/25 02:43 Glucose 131 mg/dL (65-115) H 04/15/25 02:43 Calculated Osmolality 285 mOsm/kg (285-295) 04/15/25 02:43 Calcium 9.2 mg/dL (8.5-10.5) 04/15/25 02:43 Magnesium 1.9 mg/dL (1.7-2.3) 04/15/25 02:43 Total Bilirubin 4.1 mg/dL (0.15-1.2) H 04/15/25 02:43 AST 114 U/L (0-40) H 04/15/25 02:43 ALT 187 U/L (0-41) H 04/15/25 02:43 Alkaline Phosphatase 1190 U/L (40-130) H* 04/15/25 02:43 Ammonia 92 umol/L (16-60) H 04/14/25 09:52 Troponin T Baseline < 6 ng/L (0-15) 04/14/25 09:52 Troponin T 120 Minute < 6.0 ng/L (0-15) 04/14/25 11:55 Delta Troponin T 0 ABS# (0-10) 04/14/25 11:55 Troponin T Hi Sens 6Hr < 6.0 ng/L (0-15) 04/14/25 15:42 Troponin T Hi Sens 6Hr Delta 0 ng/L (0-12) 04/14/25 15:42 Total Protein 7.2 g/dL (6.6-8.7) 04/15/25 02:43 Albumin 3.9 g/dL (3.5-5.2) 04/15/25 02:43 Globulin 3.3 g/dL (1.3-4.6) 04/15/25 02:43 Lipase 40 U/L (13-60) 04/14/25 09:52 Vitals Last Vital Signs Temp 97.7 F 04/15/25 11:46 Pulse 73 04/15/25 11:46 Resp 18 04/15/25 12:34 BP 150/93 04/15/25 11:46 Pulse Ox 98 04/15/25 11:46 O2 Del Method Room Air 04/15/25 11:46 Discharge Plan Discharge Patient Disposition: Home Condition: Stable Prescriptions: New duloxetine 30 mg capsule,delayed release(DR/EC) 30 mg PO DAILY Qty: 30 0RF sertraline 100 mg Tablet 100 mg PO QAM Qty: 14 0RF Rx Instructions: Take 100 mg for 1 week, then take 50 mg for 1 week, then take 25 mg for 1 week then stop losartan 50 mg tablet 50 mg PO DAILY Qty: 30 0RF Continued aspirin [Children's Aspirin] 81 mg tablet,chewable 81 mg PO DAILY naltrexone microspheres 380 mg suspension,extended rel recon 380 mg IM .[id number] Qty: 1 3RF buspirone 15 mg tablet 30 mg PO BID Qty: 120 2RF pregabalin [Lyrica] 25 mg capsule 25 mg PO DAILY mirtazapine [Remeron] 30 mg tablet 30 mg PO .HS Qty: 30 2RF varenicline tartrate [Chantix Continuing Month Box] 1 mg tablet 1 mg PO BID Qty: 56 2RF atomoxetine 60 mg capsule 60 mg PO DAILY Qty: 30 2RF levocetirizine 5 mg tablet 5 mg PO DAILY magnesium 250 mg tablet 250 mg PO .QOD thiamine mononitrate (vit B1) [Vitamin B-1 (mononitrate)] 100 mg Tablet 100 mg PO DAILY Qty: 90 0RF pantoprazole [Protonix] 40 mg tablet,delayed release (DR/EC) 40 mg PO DAILY Qty: 10 0RF metoclopramide HCl [Reglan] 10 mg tablet 10 mg PO Q6H PRN (Reason: nausea and vomiting) Qty: 14 0RF ondansetron 4 mg tablet,disintegrating 4 mg PO Q6H PRN (Reason: Nausea) Discontinued lisinopril 20 mg tablet 20 mg PO DAILY sertraline [Zoloft] 100 mg tablet 150 mg PO DAILY Qty: 45 2RF 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 Sanchez Problems: Pseudocyst of pancreas; Acute pancreatitis without infection or necrosis, unspecified pancreatitis type; Elevated LFTs Mahamed Sales MD [Primary Care Provider, [facility]] Discharge Diet: Advance as tolerated and Clear Liquid Discharge Activity: Increase activity as tolerated Patient Instructions: Patient Portal & Eli Instructions Activity Restrictions/Additional Instructions: Quit drinking. In order to avoid withdrawals I would decrease by 1 tallboy a day and then stop. Resume taking your pancreatic enzymes. I have recommended medication changes that may be contributing to acute/chronic pancreatitis. Lisinopril could be a contra feuding factor to pancreatitis. This will medication will be stopped and replaced with the losartan. Your antidepressant is also a possible contributing factor. Please wean yourself off over the next 3 weeks. You will start the Cymbalta as you wean yourself off. Follow-up with your primary care physician or the physician who is prescribing her antidepressant to ensure you are symptoms are stable. Lastly pantoprazole can be a contributing factor but it is class IV versus the others are class II. I recommend you continue this as we saw gastritis and enteritis on your CT scan. Please see Dr. Sanchez as soon as possible. Discharge Attestations Time Spent in Discharge Care*: greater than 30 min Status at Discharge: Cognitive status at discharge: cognitively intact , Behavioral status at discharge: cooperative , Quality Metrics Clinical Quality Measures [ No reported AMI, CVA or VTE this stay] Coding Level of Care Code Acute Code for Chg Fwd Diagnoses Acute pancreatitis without infection or necrosis, unspecified pancreatitis type K85.90 Acute pancreatitis complication: no infection or necrosis Pancreatitis type: unspecified pancreatitis type Alcohol use disorder, severe, dependence F10.20 Elevated LFTs R79.89 Pseudocyst of pancreas K86.3
== END 2025-04-15 13:53 | disposition home or self-care (01) ==
LOC: ER 09:42 → MEDSURG 17:30 → ICU 17:30
PROVIDERS: Admitting Provider Internal Medicine; Emergency Provider Family Medicine; PCP Family Medicine; Visit Provider Internal Medicine
DX: K85.90 Acute pancreatitis without necrosis or infection, unspecified (principal); R79.89 Other specified abnormal findings of blood chemistry; K86.3 Pseudocyst of pancreas; F10.20 Alcohol dependence, uncomplicated; K21.9 Gastro-esophageal reflux disease without esophagitis; Z79.82 Long term (current) use of aspirin; F41.9 Anxiety disorder, unspecified; F12.90 Cannabis use, unspecified, uncomplicated; F43.10 Post-traumatic stress disorder, unspecified; F17.200 Nicotine dependence, unspecified, uncomplicated
CPT/HCPCS: 36415; 71045; 74177; 76705; 80053; 82140; 83690; 83735; 84484; 85025; 85610; 85730; 93005; 96361; 96372; 96374; 96375; 96376; 99285; G0378; J1644; J2270; J2405; J3490; J7030; J9999

== ENCOUNTER 2025-06-25 08:46 | Inpatient (IN) | payer MEDICARE, MEDICAID, SELFPAY ==
[2024-10-17 10:25] VITALS: BP 134/102; BMI 27.0
[2025-06-25] VITALS (14 sets, daily range): BP systolic 140–164; BP diastolic 75–113; PULSE 63–102; RESP 16–18; TEMP 36.5–37; O2SAT 18–100; BMI 24.5
--- NOTE | 2025-06-25 08:50 | ED_ITS ---
HPI - Chest Pain 2 General: Chief Complaint: Chest Pain Stated Complaint: chest pain Time Seen by Provider: 06/25/25 08:47 History of Present Illness: 39-year-old man with a history of pancre atitis, alcohol dependence, anxiety, cannabis use, pancreatic pseudocyst, tobacco dependence, depression/PTSD with a history of a suicidal attempt who presents to the emergency room with left-sided chest pain, shortness of breath. EMS reports that he was hypoxic on their presentation and he is currently requiring 6 L nasal cannula. He does have some wheeze on exam. No history of COPD that he knows of but he does smoke. No lower extremity swelling. No calf pain. He has had nausea and vomiting. This all came on acutely in the middle of the night. He received nitro, aspirin and Zofran on the ambulance Related Data Home Medications ?Medication ?Instructions ?Recorded ?Confirmed aspirin 81 mg chewable tablet 81 mg PO DAILY 06/22/23 06/25/25 (Children's Aspirin) levocetirizine 5 mg tablet 5 mg PO DAILY 10/31/2306/04 pregabalin 25 mg capsule (Lyrica) 25 mg PO DAILY 03/0306/25/25 ondansetron 4 mg disintegrating 4 mg PO Q6H PRN Nausea 04/14/25 06/25/25 tablet ipratropium bromide 21 mcg (0.03 2 spray intranasal TI D 06/25/25 06/25/25 %) nasal spray Previous Rx's ?Medication ?Instructions ?Recorded thiamine mononitrate (vit B1) 100 100 mg PO DAILY #90 tabs 03/03/23 mg tablet (Vitamin B-1 (mononitrate)) pantoprazole 40 mg tablet,delayed 40 mg PO DAILY #10 t abs 01/27/24 release (Protonix) atomoxetine 60 mg capsule 60 mg PO DAILY #30 caps 09/27 losartan 50 mg tablet 50 mg PO DAILY #30 tabs 04/03 10/25 sertraline 100 mg tablet 100 mg PO QAM #14 tabs 04/15 varenicline tartrate 1 mg tablet 1 mg PO BID #56 tabs 05/05/25 (Chantix Continuing Month Box) buspirone 15 mg tablet 30 mg (2 x 15 mg) PO BID #12 0 tabs 05/22/25 duloxetine 60 mg capsule,delayed 120 mg (2 x 60 mg) PO DAILY #60 05/30/25 release caps mirtazapine 30 mg tablet (Remeron) 30 mg PO .HS #30 ta bs 06/09/25 naltrexone microspheres 380 mg 380 mg IM .[id number] #1 e a 06/09/25 intramuscular suspension,extended release Allergies Allergy/AdvReac Type Severity Reaction Status Date / Time acamprosate Allergy Intermediate ADR-Depress Verified 05/24/25 10:57 ion piperacillin (From Zosyn) Allergy ADR-Swelling Verified 05/24/25 10:57 of the Eye tazobactam (From Zosyn) Allergy ADR-Swelling Verified 05/24/25 10:57 of the Eye Review of Systems 2 Narrative: Constitutional symptoms: Negative except as documented in HPI. Skin symptoms: Negative except as documented in HPI. Eye symptoms: Negative except as documented in HPI. ENMT symptoms: Negative except as documented in HPI. Respiratory symptoms: Negative except as documented in HPI. Cardiovascular symptoms: Negative except as documented in HPI. Gastrointestinal symptoms: Negative except as documented in HPI. Genitourinary symptoms: Negative except as documented in HPI. Musculoskeletal symptoms: Negative except as documented in HPI. Neurologic symptoms: Negative except as documented in HPI. Psychiatric symptoms: Negative except as documented in HPI. Endocrine symptoms: Negative except as documented in HPI. PFSH ED 2 PFSH: Medical History (Updated 06/25/25 @ 11:36 by Jessa Faustin MD) Acute pancreatitis without infection or necrosis, unspecified pancreatitis type Alcohol use disorder, severe, dependence History of ADHD Alcohol use disorder, moderate, dependence Generalized anxiety disorder Cannabis use disorder Pseudocyst, pancreas Abdominal pain Drug allergy Acute chest wall pain Acute pancreatitis Psychiatric care Tobacco use Hypomagnesemia Hepatomegaly Transaminitis Alcohol intoxication Alcoholism Esophagitis Alcohol intoxication Acute pancreatitis Pseudocyst of pancreas Polysubstance abuse History of suicide attempt C7 cervical fracture C2 cervical fracture L4 vertebral fracture Alcohol abuse PTSD (post-traumatic stress disorder) Elevated transaminase level Pancreatitis, alcoholic, acute Surgical History History of appendectomy History of splenectomy Family History Other Diabetes Social History Smoking and tobacco/nicotine status: current every day tobacco/nicotine user Alcohol intake: current Alcohol intake frequency: 3 or more drinks per day Alcohol type: hard liquor Substance/Drug Use: current Substance/Drug use frequency: daily Adopted: No Caregiver/support person: No Lives independently: No Household members: significant other Marital status: Number of children: 4 Highest education level completed: 12th Grade, No Diploma Current occupational status: unemployed Pets and animals: Yes Leisure activites: other Leisure activities details: None at this time Sexually active: Yes Do you think of yourself as: Straight/Heterosexual Current gender identity: Male Mary Lou/Mandaen: Gnosticism Special mary lou needs: No Agree to transfusion: Yes Physical Exam 2 Narrative: EXAM NARRATIVE: General: Alert, no acute distress. Skin: Warm, dry. Head: Normocephalic, atraumatic. Neck: Supple, trachea midline. Eye: Extraocular movements are intact. Ears, nose, mouth and throat: Oral mucosa moist. Cardiovascular: Regular rate and rhythm, Normal peripheral perfusion. Respiratory: coarse, scattered wheeze, mild increased wob. tachypnea, breath sounds are equal, Symmetrical chest wall expansion. Gastrointestinal: Soft, epigastric tenderness to palpation, Non distended Musculoskeletal: Normal ROM, no deformity. Neurological: Alert and oriented, No focal neurological deficit observed. Psychiatric: Cooperative, appropriate mood & affect. Course 2 Vital Signs: Vital signs: Vital Signs Temperature 98.3 F 06/25/25 08:48 Pulse Rate 93 06/25/25 12:19 Respiratory Rate 16 06/25/25 10:09 Blood Pressure 149/75 06/25/25 12:19 Pulse Oximetry 98 06/25/25 12:19 Oxygen Delivery Me thod Nasal Cannula 06/25/25 11:45 Oxygen Flow Rate 2 06/25/25 11:45 MDM - Chest Pain Medical Decision Making Medical decision making Patient's reason for coming to the emergency room: Chest pain, shortness of breath, vomiting Social determinants: Patient is disabled. He lives at home. I reviewed the patient's medical record. 39-year-old man with a history of pancreatitis, alcohol dependence, anxiety, cannabis use, pancreatic pseudocyst, tobacco dependence, depression/PTSD with a history of a suicidal attempt . Was admitted in April for pancreatitis I reviewed the patient's current home meds I reviewed prescription monitoring. Patient had 3 opiate prescriptions for 8 to 10 tablets each time Over the last year. Alternate historians: None Differential diagnosis for patient with chest pain includes but is not limited to and based on the above HPI, review of systems and physical exam: Pneumonia. unstable angina. angina. Acute coronary syndrome / NM. Pulmonary embolism. Costochondritis / musculoskeletal. Pleurisy. Pericarditis. Esophageal spasm. Pancreatitis. Cholecystitis. Orders placed to evaluate differential diagnosis based on the above differential, HPI and physical exam Differential diagnosis including but not limited to and based on the above HPI, review of systems and physical exam: In this patient with epigastric pain differential would include cholelithiasis or cholecystitis. Hepatitis. Diverticulitis. Constipation. UTI. colitis. small bowel obstruction. Crohn's flare. pancreatitis. gastritis. peptic ulcer. also concern for acute cardiac event. Orders placed to evaluate differential diagnosis based on the above differential, HPI and physical exam Lab Review: Laboratory results were reviewed and interpreted by myself the emergency room physician. Mild leukocytosis. No anemia. No anemia. Lipase is back up over 500. Urinalysis negative for infection. Flu COVID and RSV are negative. His alcohol level is 19 today. AB.4 with an O2 sat of 90% on 2 L. Confirms hypoxemia. CTA chest with PE protocol: Some possible early pneumonia. This was reviewed and interpreted by myself the emergency room physician. I also reviewed the radiology report. CT of the abdomen pelvis with contrast: Evidence of pancreatitis and as smaller size of the pancreatic pseudocyst. This was reviewed and interpreted by myself the emergency room physician. I also reviewed the radiology report. Assessment of risk: Level of risk: Moderate to high risk patient. Continue alcohol abuse and recurrent pancreatitis. Today he is hypoxemic. I believe he likely has COPD. Hospitalization considerations: Reexamination: Patient currently requiring 2 L. He is required as much is 6 L at times. He did have a lot of wheeze on his exam. Epigastric tenderness. No altered mental status. At 1 point he became very diaphoretic. Clinical decision support: Heart score is 1. Patient had epigastric pain not chest pain. Consultation: I spoke with Dr. Hooper who is on-call for the hospital service who agrees to admission. Assessment and plan: Pancreatitis Alcohol abuse Acute hypoxemic respiratory failure Tobacco dependence COPD with acute exacerbation Pneumonia ?Sepsis fluids also to treat pancreatitis. IV Dilaudid. ?Hypoxemia: Wheezes. Tobacco dependence. Methylprednisolone, albuterol and antibiotics ?Pneumonia with hypoxemic respiratory failure. He may be early sepsis at this point -2.5 L normal saline bolus. Fluid volumes based on ideal body weight. -Broad-spectrum antibiotics were administered. Meropenem and Zyvox -Sepsis quality measures. -Lactic acid with a reflex was ordered. -Blood cultures were ordered. ?I reevaluated the patient's volume status after sepsis fluids were given. -I discussed the patient with the hospitalist on-call who is admitting the patient. - Discussed findings and plan with patient. Answered any questions. - All laboratory values were reviewed and interpreted personally by myself, the ER physician - All imaging was reviewed and interpreted personally by myself, the ER physician. - Evaluation and treatment of this problem were appropriate in the emergency setting Critical Care: -I spent a total of 64 minutes of critical care time managing the patient, independent of any other practitioner. -The time involved in the performance of separately reportable procedures was not counted towards critical care time. Lab Data 06/25/25 08:53 06/25/25 08:53 Radiology Impressions Chest X-Ray 06/25/25 08:51 IMPRESSION: No acute findings. Chest/Abdomen/Pelvis CT 06/25/25 10:17 IMPRESSION: 1. Small ill-defined ground-glass opacities with tree-in-bud nodularity in the right upper and middle lobes and lingula likely represents an atypical infectious/inflammatory process. Consider follow-up CT chest in 3-6 months to evaluate for improvement. 2. Stable pulmonary nodules measuring up to 6 mm. Recommend follow-up CT IMPRESSION: 1. Ongoing peripancreatic inflammatory changes along the pancreatic head, compatible with acute pancreatitis with secondary inflammation of the distal stomach and duodenum. Interval decrease in size of a pancreatic pseudocyst now measuring up to 2.5 cm. 2. No new acute findings. Laboratory Results WBC 11.54 10^3/uL (3.29-11.43) H 06/25/25 08:53 RBC 5.07 10^6/uL (3.85-5.65) 06/25/25 08:53 Hgb 16.70 g/dL (11.27-16.99) 06/25/25 08:53 Hct 49.1 % (37-53) 06/25/25 08:53 MCV 96.8 fl (82-101) 06/25/25 08:53 MCH 32.9 pg (27-33) 06/25/25 08:53 MCHC 34.0 g/dL (30-55) 06/25/25 08:53 RDW 13.1 % (12.1-15.1) 06/25/25 08:53 Plt Count 281 10^3/cmm (157-399) 06/25/25 08:53 MPV 9.8 fL (7.4-10.4) 06/25/25 08:53 Neut % (Auto) 67.2 % 06/25/25 08:53 Lymph % (Auto) 22.1 % 06/25/25 08:53 [place] % (Auto) 9.7 % 06/25/25 08:53 Eos % (Auto) 0.3 % 06/25/25 08:53 Baso % (Auto) 0.3 % 06/25/25 08:53 Neut # (Auto) 7.75 10^3/uL (1.8-7.7) H 06/25/25 08:53 Lymph # (Auto) 2.6 10^3/uL (0.8-4.8) 06/25/25 08:53 [place] # (Auto) 1.1 10^3/uL (0.2-0.9) H 06/25/25 08:53 Eos # (Auto) 0.0 10^3/uL (0.0-0.8) 06/25/25 08:53 Baso # (Auto) 0.0 10^3/uL (0.0-0.1) 06/25/25 08:53 Nucleated RBC % (auto) 0 % 06/25/25 08:53 Nucleated RBCs # 0.0 /100WBC 06/25/25 08:53 D-Dimer 9.24 ug/mLFEU (0-0.59) H 06/25/25 08:53 Specimen Type Arterial 06/25/25 09:05 Sample Site Brachial, left 06/25/25 09:05 ABG pH 7.47 (7.35-7.45) H 06/25/25 09:05 ABG pCO2 40.6 mmHg (35-45) 06/25/25 09:05 ABG pO2 63.6 mmHg (80.0-100.0) L 06/25/25 09:05 ABG PO2/FiO2 Ratio 227 06/25/25 09:05 ABG HCO3 29.6 mmol/L (22-26) H 06/25/25 09:05 ABG O2 Saturation 92.0 06/25/25 09:05 ABG Base Excess 5.4 mmol/L (-2.0-2.0) H 06/25/25 09:05 [place] Test N/a 06/25/25 09:05 A-a O2 Gradient 11.3 mmHg (5-10) H 06/25/25 09:05 Hematocrit 50.8 % (42-52) 06/25/25 09:05 Hgb O2 Saturation 90.4 % (95-100) L 06/25/25 09:05 Carboxyhemoglobin 0.8 %THgb (0.4-20.1) 06/25/25 09:05 Methemoglobin 0.9 % (0.4-1.5) 06/25/25 09:05 Total Hemoglobin 16.6 g/dL (14-18) 06/25/25 09:05 Sodium 141.0 mmol/L (131-143) 06/25/25 09:05 Potassium 3.9 mmol/L (3.5-5.0) 06/25/25 09:05 Glucose 144.0 mg/dL (70-115) H 06/25/25 09:05 Ionized Calcium 1.2 mmol/L (1.1-1.4) 06/25/25 09:05 O2 Delivery Device Nc 06/25/25 09:05 O2 Liters/Min 2.0 % 06/25/25 09:05 FiO2 28.0 % 06/25/25 09:05 P[employer]iler [employer] Supervisor ID [id number] 06/25/25 09:05 Sodium 140 mmol/L (136-145) 06/25/25 08:53 Potassium 4.3 mmol/L (3.5-5.1) 06/25/25 08:53 Chloride 94 mmol/L (98-107) L 06/25/25 08:53 Carbon Dioxide 30 mmol/L (22-29) H 06/25/25 08:53 Anion Gap 20.3 (5-19) H 06/25/25 08:53 BUN 5 mg/dL (6-20) L 06/25/25 08:53 Creatinine 0.6 mg/dL (0.7-1.2) L 06/25/25 08:53 GFR Calculation 150.8 mL/min (90-130) H 06/25/25 08:53 Glucose 133 mg/dL (65-115) H 06/25/25 08:53 Calculated Osmolality 289 mOsm/kg (285-295) 06/25/25 08:53 Lactic Acid 3.7 mmol/L (0.5-2.2) H 06/25/25 08:53 Lactic Acid (Sepsis) 2.7 mmol/L (0.5-2.2) H 06/25/25 10:39 Calcium 10.2 mg/dL (8.5-10.5) 06/25/25 08:53 Total Bilirubin 2.1 mg/dL (0.15-1.2) H 06/25/25 08:53 AST 136 U/L (0-40) H 06/25/25 08:53 ALT 117 U/L (0-41) H 06/25/25 08:53 Alkaline Phosphatase 641 U/L (40-130) H 06/25/25 08:53 Troponin T Baseline < 6 ng/L (0-15) 06/25/25 08:53 Troponin T 120 Minute < 6.0 ng/L (0-15) 06/25/25 10:39 Delta Troponin T 0 ABS# (0-10) 06/25/25 10:39 C-Reactive Protein 39.9 mg/L (0.0-4.9) H 06/25/25 08:53 NT-Pro-B Natriuret Pep < 36 pg/mL (0-125) 06/25/25 08:53 Total Protein 8.7 g/dL (6.6-8.7) 06/25/25 08:53 Albumin 4.8 g/dL (3.5-5.2) 06/25/25 08:53 Globulin 3.9 g/dL (1.3-4.6) 06/25/25 08:53 Lipase 457 U/L (13-60) H 06/25/25 08:53 Urine Color [place] (Yellow) A 06/25/25 09:08 Urine Appearance Clear (CLEAR) 06/25/25 09:08 Urine pH 6.0 (5-7) 06/25/25 09:08 Ur Specific [place] 1.022 (1.005-1.030) 06/25/25 09:08 Urine Protein 2+ (Negative) A 06/25/25 09:08 Urine Glucose (UA) Negative (Normal) 06/25/25 09:08 Urine Ketones Trace (Negative) 06/25/25 09:08 Urine Blood Negative (Negative) 06/25/25 09:08 Urine Nitrate Positive (Negative) A 06/25/25 09:08 Urine Bilirubin 2+ (Negative) H 06/25/25 09:08 Urine Urobilinogen 1.0 mg/dL (Negative) 06/25/25 09:08 Ur Leukocyte Esterase 1+ (Negative) A 06/25/25 09:08 Urine RBC 0-2 /hpf (0-2) 06/25/25 09:08 Urine WBC 0-5 /hpf (0-5) 06/25/25 09:08 Ur Squamous Epith Cells 0-5 /hpf (0-5) 06/25/25 09:08 Amorphous Sediment Not Reportable 06/25/25 09:08 Urine Bacteria None seen /hpf (NONE) 06/25/25 09:08 Hyaline Casts 5.77 /lpf 06/25/25 09:08 Urine Mucus 3+ /hpf 06/25/25 09:08 Urine Opiates Screen Negative ng/mL (Negative) 06/25/25 09:08 Ur Barbiturates Screen Negative ng/mL (Negative) 06/25/25 09:08 Ur Phencyclidine Scrn Negative ng/mL (Negative) 06/25/25 09:08 Ur Amphetamines Screen Negative ng/mL (Negative) 06/25/25 09:08 U Benzodiazepines Scrn Negative ng/mL (Negative) 06/25/25 09:08 Urine Cocaine Screen Negative ng/mL (Negative) 06/25/25 09:08 U Marijuana (THC) Screen Positive ng/mL (Negative) H 06/25/25 09:08 Ethyl Alcohol 19 mg/dL (0-10) H 06/25/25 08:53 Influenza A (PCR) Negative (Negative) 06/25/25 08:53 Influenza Type B (PCR) Negative (Negative) 06/25/25 08:53 RSV (PCR) Negative (Negative) 06/25/25 08:53 SARS-CoV-2 (PCR) Negative (Negative) 06/25/25 08:53 All radiology interpretation(s) finalized by discharge Clincial Decision Support The following clinical decision support tools were used to aid in care of the patient HEART Score -> History: Slightly Suspicous, EKG: Normal, Age: Less than 45 yrs, Risk Factors: 1 or 2 Risk Factors, Troponin: Baseline Trop <16 ng/L. Resulting HEART Score: 1. Discharge Plan Discharge Patient Disposition: Admitted As Inpatient Admit Provider: Fernando Hooper Clinical Impression: Pancreatitis, Alcohol use disorder, severe, dependence, Hypoxemia, Pneumonia, Tobacco dependence Condition: Stable Coding Level of Care Code ED Telecommunications Consultant for [facility] Heart Score HEART Score Components History: Slightly Suspicous EKG: Normal Age: Less than 45 yrs Risk Factors: 1 or 2 Risk Factors Troponin: Baseline Trop <16 ng/L HEART Score RESULT HEART Score: 1
--- OUTSIDE RECORDS SUMMARY | 2025-06-25 08:50 | XMS_ITS | Data Portability ---
Author Organization [facility] Address [address] [address] Care Team Providers Care Barrel Endshake Adjuster Name Role Phone SHERWIN PEDRO Primary Care Provider [phone] Assessment Encounter Date Assessment Date Assessment LastModified by Organization Details LastModified Time 05/17/2024 05/17/2024 We once again reiterated the importance of not drinking. And he once again made it clear he will not stop drinking at this time, though he is cutting back somewhat. Not available 07/19/2024 13:24:40 06/29/2024 06/29/2024 We discussed the importance of minimizing his alcohol intake. He will try to do better. Not available 07/09/2024 11:28:14 12/14/2024 12/14/2024 We discussed options to treat. He still thinks he can drink occasionally if he wants to not be an alcoholic. When I suggest that is not true, he says we have agreed to disagree. Not available 12/15/2024 22:54:16 03/01/2025 03/01/2025 Patient here today for an ER follow-up. He reports he feels pretty good today. He has not been drinking alcohol. His significant other has been encouraging him to drink more water. Not available 03/01/2025 14:46:50 Plan of Treatment Reminders Order Date Submit Date Provider Last Modified By Organization Details Last Modified Time Details Appointments None recorded. Lab CMP, serum or plasma 2024 025 [facility], [address], [address] [place], [address], 5 05:12:34 Referral gastroenter ologist referral 2024 025 [email or web address] 2 [facility] , [address], [place], [address], 5 10:54:10 Procedures None recorded. Surgeries None recorded. Imaging None recorded. Medication Orders nystatin 100,000 unit/mL oral suspension 2023 024 [facility], [address] [place], [address], 4 18:03:11 Patient TargetsNo targets recorded. Patient Instructions Encounter Date Encounter Id Patient Instructions Last Modified By Organization Details Last Modified Time 05/06/2024 [id number] Call or return for questions or concerns. Not available 05/06/2024 12:48:23 03/01/2025 [id number] Call or return for questions or concerns. 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 Referral for Acute type B viral hepatitis Referring Physician: Noreen Delgado, Family Medicine, Encounter Date: 03/01/2025 Results Created Date Observation Date Name Description Value Unit Range Abnormal Flag Note LastModifiedBy Organization Detail LastModifiedTime 04/21/2004/21/2024 SARS CoV 2 RNA, QL, nasop haryn x COVID negati ve Not Available [facility] ([facility]) [address] [place], [address], 04/21/2024 15:24:07 03/01/20 25 03/02/2025 COMPR EHENS MARIELY METAB OLIC PANEL glucose 102 mg/dL 65-99 high Fasti ng refer ence inter caridad For someo ne witho ut known diabe kirt, a gluco se value betwe en 100 and 125 mg/dL is consi stent with predi abete s and shoul d be confi rmed with a follo w-up test. Not Available [address], [address], 03/02/2025 05:12:34 03/01/20 25 03/02/2025 COMPR EHENS MARIELY METAB OLIC PANEL urea nitrogen (BUN) 8 mg/dL 7-25 normal Not Available [facility] [address], [address], 03/02/2025 05:12:34 03/01/20 25 03/02/2025 COMPR EHENS MARIELY METAB OLIC PANEL creatinine 0.82 mg/dL 0.60-1 .26 normal Not Available [facility] [address], [address], 03/02/2025 05:12:34 03/01/20 25 03/02/2025 COMPR EHENS MARIELY METAB OLIC PANEL eGFR 115 mL/mi n/1.7 3m2 > or = 60 normal Not Available [facility] [address], [address], 03/02/2025 05:12:34 03/01/20 25 03/02/2025 COMPR EHENS MARIELY METAB OLIC PANEL BUN/creatini ne ratio SEE NOTE: (calc ) 6-22 Not Repor jefferson: BUN and Creat inine are withi n refer ence range . Not Available [facility] [address], [address], 03/02/2025 05:12:34 03/01/20 25 03/02/2025 COMPR EHENS MARIELY METAB OLIC PANEL sodium 134 mmol/ L 135-14 6 low Not Available [facility] [address], [address], 03/02/2025 05:12:34 03/01/20 25 03/02/2025 COMPR EHENS MARIELY METAB OLIC PANEL potassium 4.2 mmol/ L 3.5-5. 3 normal Not Available [facility] [address] [address], [place], [address], 03/02/2025 05:12:34 03/01/2003/02/2025 COMPR EHENS MARIELY METAB OLIC PANEL chloride 100 mmol/ L 98-110 normal Not Available [address], [address], 03/02/2025 05:12:34 03/01/2003/02/2025 COMPR EHENS MARIELY METAB OLIC PANEL carbon dioxide 26 mmol/ L 20-32 normal Not Available [address], [address], 03/02/2025 05:12:34 03/01/2003/02/2025 COMPR EHENS MARIELY METAB OLIC PANEL calcium 9.5 mg/dL 8.6-10 .3 normal Not Available [address], [address], 03/02/2025 05:12:34 03/01/2003/02/2025 COMPR EHENS MARIELY METAB OLIC PANEL protein, total 6.8 g/dL 6.1-8. 1 normal Not Available [address], [address], 03/02/2025 05:12:34 03/01/2003/02/2025 COMPR EHENS MARIELY METAB OLIC PANEL albumin 4.1 g/dL 3.6-5. 1 normal Not Available [facility] [address], [address], 03/02/2025 05:12:34 03/01/2003/02/2025 COMPR EHENS MARIELY METAB OLIC PANEL globulin 2.7 g/dL_ (calc ) 1.9-3. 7 normal Not Available [address], [address], 03/02/2025 05:12:34 03/01/20 25 03/02/2025 COMPR EHENS MARIELY METAB OLIC PANEL albumin/glob ulin ratio 1.5 (calc ) 1.0-2. 5 normal Not Available [address], [address], 03/02/2025 05:12:34 03/01/20 25 03/02/2025 COMPR EHENS MARIELY METAB OLIC PANEL bilirubin, total 3.3 mg/dL 0.2-1. 2 high Not Available [address], [address], 03/02/2025 05:12:34 03/01/20 25 03/02/2025 COMPR EHENS MARIELY METAB OLIC PANEL alkaline phosphatase 454 U/L 36-130 high Not Available [address], [address], 03/02/2025 05:12:34 03/01/20 25 03/02/2025 COMPR EHENS MARIELY METAB OLIC PANEL AST 127 U/L 10-40 high Not Available [address], [address], 03/02/2025 05:12:34 03/01/20 25 03/02/2025 COMPR EHENS MARIELY METAB OLIC PANEL ALT 167 U/L 9-46 high Not Available [address], [address], 03/02/2025 05:12:34 Result Notes None recorded. Problems Name Problem SNOMED Code Status Onset Date Resolution Date Notes Provider Name and Address Organization Details Recorded Time Concussi on Completed 201612/14/2024 Concussi on; Hospital ized; Date: 02/04/20 17; 08/29/19 23 3:27PM by Danny Corona RN, Office Visit; Promoted ; acuity set as *[facility] 16:07:53 Pancreat itis 12878769 Completed 202212/14/2024 DANNY CORONA [facility], [facility] 16:08:33 Anxiety 41579938 Active 2022 DANNY CORONA [facility], [facility] 16:07:41 Depressi ve disorder 04105614 Active 2022 DANNY CORONA [facility], [facility] 16:07:56 Chronic pain syndrome 273999104 Active 2022 DANNY CORONA [facility], [facility] 16:07:47 Harmful pattern of use of alcohol 66432294 Completed 202212/14/2024 DANNY pringle, [facility] 16:08:24 Erectile dysfunct ion 384117632 Active 2023 DANNY CORONA [facility], [facility] 16:08:16 Seizure 73369736 Active 2024 DANNY CORONA [facility] 16:18:45 Acute pancreat itis 033228015 Active 2024 DANNY CORONA [facility], [facility] 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 5 14:06:17 Mino cook user 410689042 Active 2024 STEFAN pringle [facility], [facility] 5 14:06:30 Alcohol intoxica tion 48289955 Active 2024 STEFAN pringle [facility], [facility] 5 14:06:50 Post-tra umatic stress disorder 00391396 Active 2024 STEFAN pringle [facility] 5 14:07:02 Nausea and vomiting 47252716 Active 2024 DANNY pringle [facility], [facility] 5 17:48:20 Problem Notes None recorded. Procedures Surgical History Date Name Laterality Status Provider Name and Address Organization Details Recorded Time 02/27/20 25 plain X-ray of chest completed STEFAN SHELDON [facility] 03/01/2025 13:58:56 02/27/[address] 25 [address] of abdomen and pelvis completed STEFAN SHELDON [facility], [facility] 03/01/2025 14:04:45 procedure on wrist completed Aria lu [facility] 04/21/2024 15:05:09 Splenectomy completed Aria Man [facility] 04/21/2024 15:05:53 Hand tendon reconstruction completed Aria Man [facility] 04/21/2024 15:06:30 Imaging Results None recorded. Procedure Notes None recorded. Medical Equipment None Reported. Allergies Allergen ID Allergen Name Allergen Category Reaction Reaction Severity Criticality Documentation Date Start Date Code Code System Note Provider Name and Address Organization Details Recorded Time 47611 Zosyn medicatio n respirato ry distress severe high 04/21/2024 92429 RxNorm Aria pringle [facility], [facility] Alberto[facility] [place] 4 15:00:54 Medications Name Sig Start Date Stop Date Status Note LastModified by Organization Details LastModified Time losartan 50 mg tablet TAKE 1 TABLET BY MOUTH EVERY DAY active Not Available Not Available No t Available amoxicill in 500 mg capsule take 1 capsule BY MOUTH TWICE DAILY FOR 10 DAYS 11/17 completed Not Available Not Available Not Available fluconazo le 100 mg tablet TAKE TWO TABLETS BY MOUTH ON DAY one THEN TAKE ONE TABLET DAILY FOR TWO weeks 11/17 completed Not Available Not Available Not Available nystatin 100,000 unit/mL oral suspensio n take 10ml BY MOUTH FOUR TIMES DAILY FOR 10 DAYS swish, gargle and swallow 06/29 completed Not Available Not Available Not Available hydrocodo ne 5 mg-acetam inophen 325 mg tablet TAKE ONE TABLET BY MOUTH EVERY 6 HOURS as needed for moderate pain. max DAILY AMOUNT FOUR TABLETS 03/01 completed Not Available Not Available Not Available sucralfat e 1 gram tablet TAKE 1 TABLET BY MOUTH EVERY 6 HOURS FOR TWO weeks active Not Available Not Available No t Available naltrexon e 50 mg tablet TAKE 1 TABLET BY MOUTH EVERY DAY 03/01 completed Not Available Not Available Not Available lisinopri l 20 mg tablet TAKE 1 TABLET BY MOUTH EVERY DAY active Not Available Not Available No t Available ondansetr on HCl 4 mg tablet TAKE 1 TABLET BY MOUTH EVERY 8 HOURS NEEDED FOR NAUSEA AND VOMITING active Not Available Not Available No t Available prednison e 20 mg tablet TAKE 1 TABLET BY MOUTH EVERY DAY FOR FIVE DAYS 05/17 completed Not Available Not Available Not Available dexametha sone 6 mg tablet TAKE 1 TABLET BY MOUTH EVERY DAY for 5 days 01/18 completed Not Available Not Available Not Available sertralin e 100 mg tablet TAKE 1 & 1/2 TABLETS BY MOUTH EVERY DAY active Not Available Not Available No t Available metronida zole 500 mg tablet TAKE 1 TABLET BY MOUTH THREE TIMES DAILY FOR 10 DAYS 04/21 completed Not Available Not Available Not Available acetamino phen 300 mg-codein e 30 mg tablet TAKE 1 TABLET BY MOUTH EVERY 4 TO 6 HOURS NEEDED FOR PAIN 03/01 completed Not Available Not Available Not Available amlodipin e 5 mg tablet TAKE 1 TABLET BY MOUTH EVERY DAY 12/14 completed Not Available Not Available Not Available prochlorp erazine maleate 10 mg tablet TAKE 1 TABLET BY MOUTH EVERY 6 HOURS NEEDED active Not Available Not Available No t Available ciproflox acin 500 mg tablet 04/12 completed Not Available Not Available Not Available sildenafi l 25 mg tablet TAKE 1 TABLET BY MOUTH EVERY DAY active Not Available Not Available No t Available oxycodone -acetamin ophen 5 mg-325 mg tablet TAKE 1 TABLET BY MOUTH EVERY 6 HOURS NEEDED FOR MODERATE PAIN . DO NOT EXCEED 4 PER 24 HOURS 12/14 completed Not Available Not Available Not Available hydromorp gladys 2 mg tablet TAKE 1 TABLET BY MOUTH EVERY 8 HOURS NEEDED FOR PAIN for 5 days 01/12 completed Not Available Not Available Not Available cephalexi n 500 mg capsule take 1 capsule BY MOUTH THREE TIMES DAILY UNTIL GONE 03/01 completed Not Available Not Available Not Available pantopraz ole 40 mg tablet,de layed release TAKE 1 TABLET BY MOUTH TWICE DAILY active Not Available Not Available No t Available erythromy liliana 5 mg/gram (0.5 %) eye ointment apply 1cm ribbon into THE lower conjunct ival sac(s) in THE affected eye(s) THREE TIMES DAILY 07/06 completed Not Available Not Available Not Available mirtazapi ne 30 mg tablet TAKE 1 TABLET BY MOUTH AT BEDTIME active Not Available Not Available No t Available neomycin- polymyxin -dexameth 3.5 mg/mL-10, 000 unit/mL-0 .1% eye drops instill 1 drop IN LEFT EYE THREE TIMES DAILY 12/13 completed Not Available Not Available Not Available nystatin 100,000 unit/gram topical cream APPLY TO THE AFFECTED AREA(S) topicall y TWICE DAILY active Not Available Not Available No t Available buspirone 10 mg tablet TAKE 1 TABLET BY MOUTH TWICE DAILY 03/15 completed Not Available Not Available Not Available lisinopri l 10 mg tablet TAKE 1 TABLET BY MOUTH EVERY DAY 01/18 completed Not Available Not Available Not Available docusate sodium 100 mg capsule TAKE 1 CAPSULE BY MOUTH TWICE DAILY FOR 7 DAYS active Not Available Not Available No t Available buspirone 7.5 mg tablet TAKE 1 TABLET BY MOUTH TWICE DAILY 11/17 completed increase d to 10mg Not Available Not Available Not Available omeprazol e 20 mg capsule,d elayed release take 1 capsule BY MOUTH EVERY DAY 05/13 completed Not Available Not Available Not Available folic acid 1 mg tablet TAKE 1 TABLET BY MOUTH EVERY DAY active Not Available Not Available No t Available mirtazapi ne 15 mg tablet TAKE 1 TABLET BY MOUTH EVERY EVENING 01/18 completed Not Available Not Available Not Available azelastin e 137 mcg (0.1 %) nasal spray USE 2 SPRAYS IN EACH NOSTRIL TWICE DAILY 11/17 completed switched Not Available Not Available Not Available ondansetr on 4 mg disintegr ating tablet PLACE ONE TABLET UNDER THE TONGUE TWICE DAILY NEEDED active Not Available Not Available No t Available cefdinir 300 mg capsule TAKE 1 CAPSULE BY MOUTH EVERY 12 HOURS FOR 10 DAYS 03/15 completed Not Available Not Available Not Available sertralin e 50 mg tablet TAKE 1 TABLET BY MOUTH EVERY DAY 07/06 completed Not Available Not Available Not Available doxycycli ne hyclate 100 mg tablet TAKE 1 TABLET BY MOUTH TWICE DAILY FOR SEVEN DAYS 06/29 completed Not Available Not Available Not Available ipratropi um bromide 21 mcg (0.03 %) nasal spray USE 2 SPRAYS IN EACH NOSTRIL THREE TIMES DAILY NEEDED active Not Available Not Available No t Available naproxen 500 mg tablet TAKE 1 TABLET BY MOUTH TWICE DAILY NEEDED FOR PAIN 01/18 completed Not Available Not Available Not Available diazepam 5 mg tablet TAKE ONE TABLET BY MOUTH ONE HOUR PRIOR TO PRODECUR E 01/12 completed Not Available Not Available Not Available metoclopr amide 10 mg tablet TAKE 1 TABLET BY MOUTH EVERY 6 HOURS NEEDED FOR NAUSEA AND VOMITING active Not Available Not Available No t Available Ventolin HFA 90 mcg/actua tion aerosol inhaler INHALE TWO PUFFS BY MOUTH EVERY 4 HOURS active Not Available Not Available No t Available buspirone 15 mg tablet TAKE 2 TABLETS BY MOUTH TWICE DAILY active Not Available Not Available No t Available oxycodone 5 mg tablet TAKE 1 TABLET BY MOUTH EVERY DAY NEEDED FOR PAIN 04/12 completed Not Available Not Available Not Available neomycin- polymyxin -hydrocor t 3.5 mg-10,000 unit/mL-1 % ear drops,jenn p SHAKE LIQUID AND INSTILL 4 DROPS TO AFFECTED EAR THREE TIMES DAILY 12/13 completed Not Available Not Available Not Available escitalop irene 10 mg tablet TAKE 1 TABLET BY MOUTH EVERY DAY 07/06 completed Not Available Not Available Not Available atomoxeti ne 40 mg capsule TAKE ONE capsule BY MOUTH DAILY 09/14 completed Not Available Not Available Not Available atomoxeti ne 60 mg capsule take 1 capsule BY MOUTH EVERY DAY active Not Available Not Available No t Available Pain Reliever (acetamin ophen) 500 mg tablet TAKE 1 TABLET BY MOUTH EVERY 6 HOURS NEEDED FOR PAIN active Not Available Not Available No t Available mirtazapi ne 7.5 mg tablet TAKE 1 TABLET BY MOUTH AT BEDTIME 09/14 completed Not Available Not Available Not Available acamprosa te 333 mg tablet,de layed release TAKE 2 TABLETS BY MOUTH THREE TIMES DAILY with mid-day and evening meals 03/01 completed Not Available Not Available Not Available duloxetin e 30 mg capsule,d elayed release TAKE 1 CAPSULE BY MOUTH ONCE DAILY active Not Available Not Available No t Available duloxetin e 60 mg capsule,d elayed release TAKE 2 CAPSULES BY MOUTH EVERY DAY active Not Available Not Available No t Available pregabali n 25 mg capsule TAKE 1 CAPSULE BY MOUTH ONCE DAILY AT BEDTIME active Not Available Not Available No t Available chlorhexi dine gluconate 0.12 % mouthwash RINSE with 15ml TWICE DAILY FOR 30 seconds. DO not eat, drink or RINSE FOR 30 minutes AFTER USE active Not Available Not Available No t Available Percocet take 1 hour prior to procedur e 05/13 completed Recorded 08/29/19 23 3:27PM by Danny Corona RN, Office Visit; Refill Quantity : 0; Not Available Not Available Not Available varenicli ne tartrate 1 mg tablet TAKE 1 TABLET BY MOUTH TWICE DAILY active Not Available Not Available No t Available varenicli ne tartrate 0.5 mg (11)-1 mg (42) tablets in a dose pack USE DIRECTED 04/21 completed Not Available Not Available Not Available Vivitrol 380 mg intramusc ular suspensio n,extende d release inject 380mg INTRAMUS CULARLY EVERY 30 DAYS (refrige rate UNTIL given) active Not Available Not Available No t Available levocetir izine 5 mg tablet TAKE 1 TABLET BY MOUTH EVERY DAY active Not Available Not Available No t Available oxycodone 10 mg tablet TAKE 1 TABLET BY MOUTH EVERY 8 HOURS NEEDED FOR PAIN, SEVERE (MAX DAILY AMOUNT 3 TABLETS PER DAY) 01/18 completed Not Available Not Available Not Available Creon 6,000-19, 000-30,00 0 unit capsule,d elayed release TAKE 1 CAPSULE BY MOUTH THREE TIMES DAILY WITH MEALS active 13780qn pt takes up to 10 tabs QD Not Available Not Available Not Available Vitamin B-1 (mononitr ate) 100 mg tablet TAKE 1 TABLET BY MOUTH EVERY DAY active Not Available Not Available No t Available Azo Cranberry 04/12 completed Not Available Not Available Not Available Metamucil 3.4 gram/5.4 gram oral powder Take 1 tsp every day by oral route. 2023 active Not Available Not Available Not Avai lable Narcan 4 mg/actuat ion nasal spray 03/01 completed Not Available Not Available Not Available M- Plus 27 mg iron-1 mg tablet TAKE 1 TABLET BY MOUTH EVERY DAY 01/18 completed Not Available Not Available Not Available Vitals Date Recorded Body height Body mass index (BMI) Body weight Heart rate Respiratory rate Body temperature Systolic And Diastolic Provider Name and Address Organization Details Last Updated DateTime 5 180.34 cm 25.7 kg/m2 78053.4 g 86 /min 20 /min 98.9 [degF] 118/76 mm[Hg] DANNY CORONA [facility] 5 16:16:26 Date Recorded Body height Body mass index (BMI) Body weight Oxygen saturation Heart rate Systolic And Diastolic Provider Name and Address Organization Details Last Updated DateTime 5 180.34 cm 24.4 kg/m2 28755.6 6 g 98 % 86 /min 114/84 mm[Hg] STEFAN CHUNG [facility] 5 14:14:27 Date Recorded Body height Body temperature Oxygen saturation Heart rate Body mass index (BMI) Body weight Systolic And Diastolic Provider Name and Address Organization Details Last Updated DateTime 4 180.34 cm 98.2 [degF] 95 % 105 /min 25.7 kg/m2 22842 g 162/84 mm[Hg] Delmi Maya [facility] 4 11:55:00 Date Recorded Body height Body mass index (BMI) Body weight Oxygen saturation Heart rate Respiratory rate Body temperature Systolic And Diastolic Provider Name and Address Organization Details Last Updated DateTime 4 180.34 cm 25.8 kg/m2 57177.9 9 g 95 % 103 /min 18 /min 98.6 [degF] 142/90 mm[Hg] MAYKEL HYDE [facility] 4 16:49:26 Date Recorded Body height Body mass index (BMI) Body weight Respiratory rate Body temperature Heart rate Oxygen saturation Systolic And Diastolic Provider Name and Address Organization Details Last Updated DateTime 4 180.34 cm 26 kg/m2 82558.5 8 g 18 /min 98.9 [degF] 110 /min 98 % 110/80 mm[Hg] DANNY SHIY [facility] 4 16:46:31 Social History Question Answer Notes LastModified by [employer] Details LastModified Time Tobacco Smoking Status Current Every Day Smoker MAYKEL pringle [facility] 01/12/2023 09:37:40 What Was The Date Of Your Most Recent Tobacco Screening? 12/14/2024 Information not available 12/14/2024 What Is Your Relationship Status? Domestic Partner Information not available 01/12/2023 Are You Sexually Active? Yes Information not available 01/12/2023 How Much Tobacco Do You Smoke? 1 PPD Information not available 12/14/2024 Sex: Unknown Functional Status Question Answer Note LastModified by [employer] ion Details LastModified Time How many times per week do you consume alcohol? 5-7 times per week Information not available 07/06/2023 Do you use any illicit or recreational drugs? Yes howard Information not available 01/12/2023 What is your level of alcohol consumption? None Information not available 12/14/2024 Are you able to care for yourself independently? Yes Information not available 01/12/2023 Mental Status None recorded. Family History Relationship Description Onset Age of this Age Resolved Age Notes LastModified by Organization Details LastModified Time Father No current problems or disability [email or web address] Not available 0 01/12/2023 09:37:11 Mother No current problems or disability [email or web address] Not available 0 01/12/2023 09:37:11 Medical History No medical history recorded. Immunizations Vaccine Type Date Status Note Provider Nam e and Address Organization Details Recorded Time Pneumococcal conjugate PCV20, polysaccharide ZOT210 conjugate, adjuvant, PF 4 completed DANNY CORONA null, [facility] 06/29/2024 16:35:19 MMR 8 completed MAYKEL OSMAN null, [facility] 01/12/2023 09:35:17 MMR 2 completed MAYKEL OSMAN null, [facility] 01/12/2023 09:35:17 Tdap 3 completed MAYKEL ROMEROWANDER null, [facility] 01/12/2023 09:35:17 Tdap 4 completed MAYKEL SCHMITZER null, [facility] 01/12/2023 09:35:17 Hep B, unspecified formulation 0 completed MAYKEL SCHMITZER null, [facility] 01/12/2023 09:35:17 Hep B, unspecified formulation 9 completed ANGIEBA HEATHERWANDER null, [facility] 01/12/2023 09:35:17 Hep B, unspecified formulation 9 completed ANGIEBA HEATHERWANDER null, [facility] 01/12/2023 09:35:17 OPV, trivalent 7 completed TREBA NEUSCHWANDER null, [facility] 01/12/2023 09:35:17 OPV, trivalent 7 completed TREBA NEUSCHWANDER null, [facility] 01/12/2023 09:35:17 OPV, trivalent 2 completed TREBA NEUSCHWANDER null, [facility] 01/12/2023 09:35:17 OPV, trivalent 7 completed TREBA NEUSCHWANDER null, [facility] 01/12/2023 09:35:17 Td (adult), 2 Lf tetanus toxoid, preservative free, adsorbed 2 completed TREBA NEUSCHWANDER null, [facility] 01/12/2023 09:35:17 Hep A, ped/adol, 2 dose 2 completed TREBA NEUSCHWANDER null, [facility] 01/12/2023 09:35:18 Hib (PRP-T) 8 completed TREBA NEUSCHWANDER null, [facility] [facility] 01/12/2023 09:35:18 DTaP 7 completed TREBA NEUSCHWANDER null, [facility] 01/12/2023 09:35:18 DTaP 7 completed TREBA NEUSCHWANDER null, [facility] 01/12/2023 09:35:18 DTaP 2 completed TREBA NEUSCHWANDER null, [facility] 01/12/2023 09:35:18 DTaP 8 completed TREBA NEUSCHWANDER null, [facility] 01/12/2023 09:35:18 DTaP 7 completed MAYKEL OSMAN [facility], [place] 01/12/2023 09:35:18 Past Encounters Encounter ID Performer Location Encounter Start Date Encounter Closed Date Diagnosis/Indication Diagnosis SNOMED-CT Code Diagnosis ICD10 Code Diagnosis IMO Codes Diagnosis Note [id number] Sherwin Pedro MD [facility] ([facility]) [address] [place] [address] [phone] 5 01/12/2023 09:27:03 01/12/2023 20:16:03 Pancreatitis 04395835 K85.90 Anxiety 95460707 F41.9 Depressive disorder 3548 9007 F32.A Chronic pain syndrome 37 3657644 G89.4 Harmful pa ttern of use of alcohol 47324610 F10.10 [id number] Sherwin Pedro MD [facility] ([facility]) [address] [place] [address] [id number] 5 02/11/2023 16:02:03 02/11/2023 20:08:41 Harmful pattern of use of alcohol 98745043 F10.10 Anxiety 54834546 F41.9 Depressive disorder 3548 9007 F32.A Heartburn 26136073 R12 [id number] Sherwin Pedro MD [facility] ([facility]) [address] [place] [address] [phone] 5 05/13/2023 14:48:08 05/26/2023 11:19:35 Harmful pattern of use of alcohol 91352290 F10.10 Anxiety 29088732 F41.9 Heartburn 89032922 R12 [id number] Sherwin Pedro MD [facility] ([facility]) [address] [place] [address] [id number] 5 05/26/2023 13:54:26 05/26/2023 17:53:00 Heartburn 18166136 R12 Pain of left eye 6918624 001 99532 H57.12 Chalazion of lower eyelid 546481578 H00.15 [id number] LINDEN VILLARREAL [facility] ([facility]) [address] [place] [address] [id number] 5 06/30/2023 16:07:37 06/30/2023 18:54:05 Sore throat 654499901 J02.9 Negative strep test today. Acute pharyngitis 837989 003 J02.9 Reassured with negative strep test today. Discussed with patient that this is likely viral and will have to run its course. Can take tylenol/ib uprofen as needed for pain and fevers. If worsening condition or no improvemen t in 7-10 days, return for further evaluation . Patient verbalizes understand ing. [id number] Sherwin Pedro MD [facility] ([facility]) [address] [place] [address] [id number] 5 07/06/2023 13:46:59 07/07/2023 21:55:17 Pancreatitis 78413422 K85.90 Generalize d anxiety disorder 54520518 F41.1 [id number] Salvador Weathers DO [facility] ([facility]) [address] [place] [address] [phone] 5 08/17/2023 13:35:41 08/17/2023 16:24:53 Candidiasis of mouth 94155446 B37.0 Discussed use of liquid Nystatin to swish, gargle, then swallow. Pt is instructed to use until no further white patches are visualized in the mouth, then use an additional 2 days to ensure resolution .Nystatin cream prescribed for corners of the lips. [id number] Mundo Luna MD [facility] ([facility]) [address] [place] [address] [phone] 08/25/2023 15:03:37 08/25/2023 18:51:03 Swallowing painful 33619025 R13.19 f/u with pcp if sx do not resolve [id number] LUCIA LUNA PA-C [facility] ([facility]) [address] [place] [address] [id number] 5 08/30/2023 16:30:10 08/30/2023 16:58:08 Epidermoid cyst of skin of ear 458453991 L72.0 Chronic sore throat 5224 35141 J31.2 [id number] Sherwin Pedro MD [facility] ([facility]) [address] [place] [address] [id number] 5 09/14/2023 14:53:58 09/14/2023 15:38:16 Anxiety 43655223 F41.9 Essential hypertension 42721188 I10 [id number] Sherwin Pedro MD [facility] ([facility]) [address] [place] [address] [phone] 5 11/18/2023 14:04:50 11/18/2023 15:20:26 Essential hypertension 25767190 I10 Pancreatitis 84643900 K8 5.90 Nausea and vomiting 1693 2000 R11.2 Candidiasis of mouth 797 87323 B37.0 [id number] Sherwin Pedro MD [facility] ([facility]) [address] [place] [address] 5 12/14/2023 13:21:11 12/14/2023 15:51:19 Dyspnea 474663401 R06.00 Anterior c hest wall pain 007959125 R07.89 Altered eben wel function 52730648 R19.4 Erectile dysfunction 860 774382 F52.21 [id number] Sherwin Pedro MD [facility] ([facility]) [address] [place] [address] [id number] 5 01/19/2024 14:20:31 01/19/2024 15:10:45 Abdominal pain 96902630 R10.9 Chronic pancreatitis 235 807007 K86.1 [id number] Sherwin Pedro MD [facility] ([facility]) [address] [place] [address] [phone] 5 02/02/2024 15:14:36 02/02/2024 17:34:27 Harmful pattern of use of alcohol 88973370 F10.10 Essential hypertension 90224266 I10 Anxiety 59433216 F41.9 [id number] Sherwin Pedro MD [facility] ([facility]) [address] [place] [address] [id number] 5 03/15/2024 14:29:57 03/15/2024 15:24:11 Harmful pattern of use of alcohol 53139626 F10.10 Depressive disorder 3548 9007 F32.A Anxiety 81155846 F41.9 Candidiasis of mouth 797 27244 B37.0 Erectile dysfunction 860 421391 F52.21 Dysuria 43478507 R30.0 [id number] Sherwin Pedro MD [facility] ([facility]) [address] [place] [address] [id number] 5 04/12/2024 14:52:03 04/12/2024 16:28:35 Postoperative visit 639061402 Z48.89 Erectile dysfunction 860 714039 F52.21 [id number] KEVIN AMOR [employer] [facility] ([facility]) [address] [place] [address] [id number] 5 04/21/2024 14:51:28 04/21/2024 17:23:56 Cough 49878397 R05.9 Acute uppe r respiratory infection 24385586 J06.9 Covid negative. Discussed use of otc medication s for symptom management .Push oral fluids and rest.If you develop fever, sob, or start feeling worse then return for re-evaluat ion. [id number] COLBY CHENG [facility] ([facility]) [address] [place] [address] [phone] 5 05/06/2024 11:07:44 05/06/2024 12:58:49 Candidiasis of mouth 03958946 B37.0 [id number] Sherwin Pedro MD [facility] ([facility]) [address] [place] [address] [id number] 5 05/17/2024 16:01:03 05/17/2024 18:02:38 Harmful pattern of use of alcohol 46389178 F10.10 Chronic pain syndrome 37 7071739 G89.4 Anxiety 48335454 F41.9 Pain of ri ght knee joint 3929456867 05036 M25.458 [id number] Sherwin Pedro MD [facility] ([facility]) [address] [place] [address] [id number] 5 06/29/2024 16:00:02 06/29/2024 17:50:25 Epigastric pain 04959496 R10.13 [id number] Sherwin Pdero MD [facility] ([facility]) [address] [place] [address] [id number] 5 12/14/2024 15:55:12 12/16/2024 07:47:49 Seizure 14741887 R56.9 [id number] Acute pancreatitis 6007 K85.80 75618953 Alcohol withdrawal 55647 0000 F10.939 90695345 [id number] COLBY CHENG [facility] ([facility]) [address] [place] [address] 03/01/2025 13:56:05 03/01/2025 15:29:25 Acute type B viral hepatitis 90133362 B16.9 [id number] Patient education provided to patient from Up-to-date Chronic pancreatitis 235 884531 K86.1 Health Concerns Section Related Observation LastModified by Organization Detai ls LastModified Time None Recorded Concern Status LastModified by Organization Details LastModified Time None Recorded Advance Directives Directive None Recorded Payers Insurance Date Sequence Insurance Name Policy Number Policy Alexander Covered Member ID Alexander Member ID Guarantor Name 01/14/2023 2 *SELF PAY* Sh ea S Girdley 02/28/2025 1 [facility] (MEDICAID HMO) Parker S Girdley [id number] Parker S Girdley 02/28/2025 [facility] (MEDICAID HMO) Parker S Girdley [id number] Parker S Girdley Notes Date Note Type Note Provider Name and Address Organization Details Recorded Time 05/06/2024 text/html Sore ThroatRepor jefferson by PatientHPIFor quality, patient reportsdifficulty swallowingandhoarsenes s. For severity, patient reportsmild. For location, patient reportsbilateral.ROS as noted in the HPI walk in pt.Pt has sores in mouth and throat for 5 days. COLYB CHENG [address] [place] [address], [phone], [facility], L.LSoraidaCSoraida 05/06/2024 12:50:00 05/17/2024 text/html Hypertension IM/FMReported by PatientHPIFor self care, patient reportssmoker. For quality, patient reportshere for check-upandfatigue. For onset/timing, patient reportsgradual onset. For alleviating factors, patient reportsmedication. For associated symptoms, patient reportsno shortness of breath,no palpitations,no headaches, andno chest pain. Generalized Anxiety DisorderReported by PatientHPIFor associated symptoms, patient reportsdifficulty concentrating,difficul ty controlling worry,excess anxiety, andhigh irritability. For severity, patient reportsmoderate. For context, patient reportsdepression. Pt states the last 4 months he has been dealing with custody of his child. Pts Bp has running 116/70 to 136/80 Pt has been having right knee pain if he gets down he has trouble getting up.Pt states he has quit drinking whisky and only drinks beer. Sherwin Pedro MD [address] [place] [address], [phone], [facility] 07/19/2024 13:24:48 06/29/2024 text/html Hospital follow up from 06/09/24, epigastric pain Sherwin Pedro MD [address] [place] [address], [phone], [facility] 07/09/2024 11:28:26 12/14/2024 text/html SeizureReported by PatientHPIFor associated symptoms, patient reportstongue biting,postictal fatigue/tiredness,post ictal headache, andpostictal confusionbut reportsno vomitingandno chest pain. For duration, patient reportslength of seizure: 2 minutes. pt stopped drinking alcohol x2 days ago. Pt had a seizure yesterday at 5:05pm. He was seen in ER at [facility].Patient was in the [place] ER thursday night for flare of pancreatitis. Sherwin Pedro MD [address] [place] [address], [phone], [facility] 12/15/2024 22:55:20 03/01/2025 text/html Abdominal PainRe ported by PatientAbdominal PainFor quality, patient reportscrampingandachi ng. For location, patient reportsruq. For severity, patient reportsmoderate. COLBY CHENG [address] [place] [address], [phone], [facility] 03/01/2025 14:48:57
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
--- OUTSIDE RECORDS SUMMARY | 2025-06-25 08:50 | XMS_ITS | Clinical Summary ---
Author Organization [facility] Address [address] [place] [address] Phone Care Team Providers Care Clay Roaster Name Role Phone Unavailable Primary Care Provider [...]
--- NOTE | 2025-06-25 08:51 | XRR_ITS ---
PROCEDURE INFORMATION: Exam: XR Chest Exam date and time: 06/25/2025 9:29 AM Age: 39 years old Clinical indication: Shortness of breath TECHNIQUE: Imaging protocol: Radiologic exam of the chest. Views: 1 view. COMPARISON: CR XR chest 1V portable [id number] 04/14/2025 9:19 AM FINDINGS: Lungs: Unremarkable. No consolidation. Pleural spaces: Unremarkable. No pleural effusion. No pneumothorax. Heart/Mediastinum: Unremarkable. No cardiomegaly. Bones/joints: Prior fixation of the right clavicle. XR/XR chest 1V portable [id number] IMPRESSION: No acute findings.
--- NOTE | 2025-06-25 08:51 | ECG_ITS ---
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 Measurements Intervals [place] Rate: 88 P: 66 MO: 146 QRS: 72 QRSD: 94 T: 53 QT: 396 QTc: 480 Interpretive Statements SINUS RHYTHM POSSIBLE LEFT ATRIAL ENLARGEMENT [-0.1mV P-WAVE IN V1/V2] MINIMAL ST DEPRESSION [0.025+ mV ST DEPRESSION] Compared to ECG 06/25/2025 08:51:30 ST (T wave) deviation now present Sinus arrhythmia no longer present Electronically Signed On 06-25-2025 17:18:03 ERADICATOR by Adrian Pearson M.D. [email or web address]
[2025-06-25] MEDS: methylPREDNISolone sod succ 125 mg/2 mL INJ IVP (08:58)
[2025-06-25 08:59] LABS: Hematocrit 49.1 % (37-53); Hemoglobin 16.70 g/dL (11.27-16.99); Mean Corpuscular HGB Conc 34.0 g/dL (30-55); Mean Corpuscular Hemoglobin 32.9 pg (27-33); Mean Corpuscular Volume 96.8 fl (82-101); Nucleated Red Blood Cells % 0 %; Platelet Count 281 10^3/cmm (157-399); Red Blood Count 5.07 10^6/uL (3.85-5.65); White Blood Count 11.54 10^3/uL (3.29-11.43)
[2025-06-25 09:16] LABS: ABG PCO2 40.6 mmHg (35-45); ABG PH Result 7.47 (7.35-7.45); Arterial Blood Gas Hematocrit 50.8 % (42-52); Blood Gas Sample Site Brachial, left; Blood Gas Sample Type Arterial; Carboxyhemoglobin 0.8 %THgb (0.4-20.1); Glucose Level-ABG 144.0 mg/dL (70-115); HCO3 ABG 29.6 mmol/L (22-26); Ionized Calcium Level - ABG 1.2 mmol/L (1.1-1.4); Methemoglobin 0.9 % (0.4-1.5); Oxygen Saturation ABG 92.0; PO2 ABG 63.6 mmHg (80.0-100.0); Potassium Level - ABG 3.9 mmol/L (3.5-5.0); Sodium Level - ABG 141.0 mmol/L (131-143)
[2025-06-25 09:18] LABS: Alveolar-Arterial Oxygen Gradi 11.3 mmHg (5-10); Blood Gas LPM 2.0 %; Blood Gas Operator Identificat AMH; PO2 FiO2 Ratio Arterial Blood 227
[2025-06-25 09:24] LABS: Glucose Urine UA Negative (Normal); Nitrate Urine Positive (Negative); Specific Gravity, Urine 1.022 (1.005-1.030)
[2025-06-25 09:29] LABS: Lactic Sepsis W/Reflex 3.7 mmol/L (0.5-2.2)
[2025-06-25 09:30] LABS: Reflex Lactate Order REFLEX LACTIC ORDERD; Troponin(5th) Baseline < 6 ng/L (0-15)
[2025-06-25 09:32] LABS: Alcohol Level 19 mg/dL (0-10)
[2025-06-25 09:34] LABS: PCP Screen Urine Negative (Negative)
[2025-06-25 09:37] LABS: Respiratory Syncytial Virus Ce NEGATIVE (Negative); SARS-CoV-2 PCR NEGATIVE (Negative)
[2025-06-25 09:39] LABS: Alanine Aminotransferase 117 U/L (0-41); Albumin Level 4.8 g/dL (3.5-5.2); Alkaline Phosphatase 641 U/L (40-130); Anion Gap 20.3 (5-19); Aspartate Amino Transferase 136 U/L (0-40); Blood Urea Nitrogen 5 mg/dL (6-20); Calcium 10.2 mg/dL (8.5-10.5); Carbon Dioxide 30 mmol/L (22-29); Chloride 94 mmol/L (98-107); Globulin 3.9 g/dL (1.3-4.6); Glucose 133 mg/dL (65-115); NT Pro B Type Natriuretic Pept < 36 pg/mL (0-125); Osmolality Calculated 289 mOsm/kg (285-295); Potassium 4.3 mmol/L (3.5-5.1); Sodium 140 mmol/L (136-145); Total Protein 8.7 g/dL (6.6-8.7)
[2025-06-25 09:49] LABS: Lipase 457 U/L (13-60)
[2025-06-25 09:55] LABS: UA Slide Review UA Slide Review Perf
--- NOTE | 2025-06-25 10:17 | CTR_ITS ---
PROCEDURE INFORMATION: Exam: CTA Chest With Contrast Exam date and time: 06/25/2025 10:26 AM Age: 39 years old Clinical indication: Abdominal tenderness and nausea; Hyperventilation and tachypnea; Prior surgery; Surgery date: 6+ months; Surgery type: Spleenectomy, pancreas (trauma); Additional info: Hypoxemia, tachycardia TECHNIQUE: Imaging protocol: Computed tomographic angiography of the chest with contrast. Exam focused on the arteries. 3D rendering (Not supervised by radiologist): MIP and/or 3D reconstructed images were created by the technologist. Radiation optimization: All CT scans at this facility use at least one of these dose optimization techniques: automated exposure control; mA and/or kV adjustment per patient size (includes targeted exams where dose is matched to clinical indication); or iterative reconstruction. Contrast material: OMNIPAQUE 350; Contrast volume: 100 ml; Contrast route: INTRAVENOUS (IV); COMPARISON: CT angio chest w abd pel w con 01/03/2024 3:47 AM RADIATION DOSE METRICS: Total DLP (mGy-cm): 745.77 FINDINGS: Pulmonary arteries: Normal. No pulmonary emboli. Aorta: Unremarkable. No aortic aneurysm. No aortic dissection. Lungs: Small ill-defined ground-glass opacities with tree-in-bud nodularity most pronounced in the right upper lobe and to a lesser degree in the right middle lobe and lingula. Stable 6 mm right upper lobe subpleural nodule and 5 mm right lower lobe subpleural nodule. Pleural spaces: Unremarkable. No pneumothorax. No pleural effusion. Heart: Unremarkable. No cardiomegaly. No pericardial effusion. Lymph nodes: Unremarkable. No enlarged lymph nodes. Bones/joints: Unremarkable. No acute fracture. Soft tissues: Unremarkable. Chest in 6-12 months. (References: Yony and Umer) REFERENCES: 1. Yony H, et al. Guidelines for Management of Incidental Pulmonary Nodules Detected on CT Images: From the Fleischner Society 2017. Radiology. 2017;284(1):228-243. 2. Umer Wei, et al. Updated Fleischner Society Guidelines for Managing Incidental Pulmonary Nodules: Common Questions and Challenging Scenarios. Radiographics. 2018;38(5):3152-3624. PROCEDURE INFORMATION: Exam: CT Abdomen And Pelvis With Contrast Exam date and time: 06/25/2025 10:26 AM Age: 39 years old Clinical indication: Abdominal tenderness and nausea; Hyperventilation and tachypnea; Prior surgery; Surgery date: 6+ months; Surgery type: Spleenectomy, pancreas (trauma); Additional info: Hypoxemia, tachycardia TECHNIQUE: Imaging protocol: Computed tomography of the abdomen and pelvis with contrast. Radiation optimization: All CT scans at this facility use at least one of these dose optimization techniques: automated exposure control; mA and/or kV adjustment per patient size (includes targeted exams where dose is matched to clinical indication); or iterative reconstruction. Contrast material: OMNIPAQUE 350; Contrast volume: 100 ml; Contrast route: INTRAVENOUS (IV); COMPARISON: CT abdomen pelvis w con* [id number] 04/14/2025 11:09 AM RADIATION DOSE METRICS: Total DLP (mGy-cm): 745.77 FINDINGS: Liver: Normal. No mass. Gallbladder and biliary ducts: Normal. No calcified stones. No ductal dilation. Pancreas: Interval decrease in size of a pancreatic pseudocyst along the pancreatic head, now measuring about 2.5 x 2.5 cm in axial dimensions, previously 5.3 x 4.8 cm. Ongoing mild surrounding inflammatory changes with peripancreatic fat stranding which extends along the distal stomach and duodenum. Chronic pancreatic ductal dilatation. Spleen: Surgically absent. Adrenal glands: Normal. No mass. Kidneys and ureters: Normal. No hydronephrosis. Stomach and bowel: Persistent mild wall thickening along the gastric antrum with fat stranding along the antrum and duodenum. No bowel obstruction. Areas of submucosal fatty deposition within the colon can be seen with chronic inflammation. Appendix: No evidence of appendicitis. Intraperitoneal space: Unremarkable. No free air. No significant fluid collection. Vasculature: Unremarkable. No abdominal aortic aneurysm. Lymph nodes: Unremarkable. No enlarged lymph nodes. Urinary bladder: Unremarkable as visualized. Reproductive: Unremarkable as visualized. Bones/joints: Unremarkable. No acute fracture. Soft tissues: Small fat containing bilateral inguinal hernias. CT/CT angio chest w abd pel w con IMPRESSION: 1. Small ill-defined ground-glass opacities with tree-in-bud nodularity in the right upper and middle lobes and lingula likely represents an atypical infectious/inflammatory process. Consider follow-up CT chest in 3-6 months to evaluate for improvement. 2. Stable pulmonary nodules measuring up to 6 mm. Recommend follow-up CT IMPRESSION: 1. Ongoing peripancreatic inflammatory changes along the pancreatic head, compatible with acute pancreatitis with secondary inflammation of the distal stomach and duodenum. Interval decrease in size of a pancreatic pseudocyst now measuring up to 2.5 cm. 2. No new acute findings.
[2025-06-25] MEDS: iohexol 350 mg/mL 500 mL Btl (per mL) IV (10:28)
--- NOTE | 2025-06-25 10:51 | ECG_ITS ---
[facility] Test Date: 2025-06-25 Pat Name: Elena Hernandez Department: Room: Gender: Male Rn Care Transition: : 1985 Requested By: Jessa Flores Order Number: [id number] Boni MD: Adrian Pearson M.D. Measurements Intervals Gilman Rate: 60 P: 57 TN: 147 QRS: 69 QRSD: 94 T: 61 QT: 435 QTc: 437 Interpretive Statements SINUS RHYTHM WITH SINUS ARRHYTHMIA Compared to ECG 04/14/2025 15:28:49 No significant changes Electronically Signed On 06-25-2025 17:37:32 [employer] by Adrian Pearson M.D. [email or web address]
[2025-06-25] MEDS: ondansetron 2 mg/ML SDV 2 mL 4 MG IVP ×3 (10:54→20:19)
[2025-06-25] MEDS: HYDROmorphone 0.5 MG/0.5 ML INJ 1 MG IVP (10:54)
[2025-06-25 11:09] LABS: Troponin 5 2HR < 6.0 ng/L (0-15); Troponin 5 2HR Delta 0 ABS# (0-10)
[2025-06-25 11:12] LABS: Lactic Acid level (Lactate) 2.7 mmol/L (0.5-2.2)
[2025-06-25] MEDS: linezolid premix 600 MG/300 ML PREMIX 300 MG IV (11:36)
--- NOTE | 2025-06-25 13:53 | PM.HP ---
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 Patient presented to the ED on 06/25/2025 with epigastric and left upper quadrant abdominal pain. Characterizes pain as burning, stabbing, and aching. Pain occasionally radiates to the back. Symptoms started at 3 AM on day of presentation with pain progressively worsening as the day progressed. Reports associated symptoms of nausea, vomiting/dry heaving, tolerating oral fluids and decrease in urine output. Patient reports to have multiple flares of pancreatitis requiring hospitalization. Most recent in April 2025. Patient admits to smoking 2-2.5 packs/day and drinking 7-8 tall boys daily to every other day. Last drink, night prior. Known to have history of EtOH withdrawal seizure. ED COURSE REVIEWE Labs, 06/25/25 0908 Infection/Inflammation LA 3.7 -> 2.7 Hemogram WBC 11.54 RBC 5.07 HGB 16.7 PLT 281 Coags D-dimer 9.24 CMP Na 140 K 4.3 Cl 94 Ca 10.2 glu 133 CO2 30 AG 20.3 BUN 5 Cr 0.6 eGFR 150 Liver AST 136 ALT 117 ALP 641 T.Bili 2.1 Alb 4.8 Pancreas Lipase 457 Cardiac Trop < 6 (x2) NT-proBNP < 36 Urinalysis SG 1.022, protein (2+) nitrite (+), leukocyte esterase (1+) Toxicology THC, EtOH 19 Viral Studies Influenza A/B (-), RSV (-), COVID (-) Blood gas, 06/25/2025 0905 pH 7.47 pCO2 40.6 pO2 63.6 HCO3 29.6 CXR, 06/29/25 No acute cardiopulmonary findings CTA CHEST, 06/29/25 - Small ill-defined ground-glass opacities with tree-in-bud nodularity in the right upper and middle lobes and lingula likely represents an atypical infectious/inflammatory process. Consider follow-up CT chest in 3-6 months to evaluate for improvement. - Stable pulmonary nodules measuring up to 6 mm. Recommend follow-up CT CT Abdomen / Pelvis, 06/29/2025 - Ongoing peripancreatic inflammatory changes along the pancreatic head, compatible with acute pancreatitis with secondary inflammation of the distal stomach and duodenum. Interval decrease in size of a pancreatic pseudocyst now measuring up to 2.5 cm. - No new acute findings. In ED received 1120 Meropenem 500 mg IV 1120 linezolid 600 mg IV Medications/Allergies Home Medications ?Medication ?Instructions ?Recorded ?Confirmed ?Last Taken ?Type thiamine mononitrate (vit B1) 100 100 mg PO DAILY #90 tabs 03/03/23 06/25/25 06/22/25 Rx mg tablet (Vitamin B-1 (mononitrate)) aspirin 81 mg chewable tablet 81 mg PO DAILY 06/22/23 06/25/25 06/22/25 History (Children's Aspirin) levocetirizine 5 mg tablet 5 mg PO DAILY 10/31/23 06/25/25 06/22/25 History pantoprazole 40 mg tablet,delayed 40 mg PO DAILY #10 tabs 01/27/24 06/25/25 06/22/25 Rx release (Protonix) pregabalin 25 mg capsule (Lyrica) 25 mg PO DAILY 03/03/24 06/25/25 06/22/25 History atomoxetine 60 mg capsule 60 mg PO DAILY #30 caps 04/04/25 06/25/25 06/22/25 Rx ondansetron 4 mg disintegrating 4 mg PO Q6H PRN Nausea 04/14/25 06/25/25 Unknown History tablet losartan 50 mg tablet 50 mg PO DAILY #30 tabs 04/15/25 06/25/25 06/22/25 Rx sertraline 100 mg tablet 100 mg PO QAM #14 tabs 04/15/25 06/25/25 06/22/25 Rx varenicline tartrate 1 mg tablet 1 mg PO BID #56 tabs 05/05/25 06/25/25 06/22/25 Rx (Chantix Continuing Month Box) buspirone 15 mg tablet 30 mg (2 x 15 mg) PO BID #120 tabs 05/22/25 06/25/25 06/22/25 Rx duloxetine 60 mg capsule,delayed 120 mg (2 x 60 mg) PO DAILY #60 05/30/25 06/25/25 Unknown Rx release caps mirtazapine 30 mg tablet (Remeron) 30 mg PO .HS #30 tabs 06/09/25 06/25/25 06/22/25 Rx naltrexone microspheres 380 mg 380 mg IM .Y82etsn #1 ea 06/09/25 06/25/25 Unknown Rx intramuscular suspension,extended release ipratropium bromide 21 mcg (0.03 2 spray intranasal TID 06/25/25 06/25/25 06/22/25 History %) nasal spray Allergies Allergy/AdvReac Type Severity Reaction Status Date / Time acamprosate Allergy Intermediate ADR-Depress Verified 05/24/25 10:57 ion piperacillin (From Zosyn) Allergy ADR-Swelling Verified 05/24/25 10:57 of the Eye tazobactam (From Zosyn) Allergy ADR-Swelling Verified 05/24/25 10:57 of the Eye PFSH Acute PFSH: Medical History (Updated 06/25/25 @ 11:36 by Jessa Faustin MD) Acute pancreatitis without infection or necrosis, unspecified pancreatitis type Alcohol use disorder, severe, dependence History of ADHD Alcohol use disorder, moderate, dependence Generalized anxiety disorder Cannabis use disorder Pseudocyst, pancreas Abdominal pain Drug allergy Acute chest wall pain Acute pancreatitis Psychiatric care Tobacco use Hypomagnesemia Hepatomegaly Transaminitis Alcohol intoxication Alcoholism Esophagitis Alcohol intoxication Acute pancreatitis Pseudocyst of pancreas Polysubstance abuse History of suicide attempt C7 cervical fracture C2 cervical fracture L4 vertebral fracture Alcohol abuse PTSD (post-traumatic stress disorder) Elevated transaminase level Pancreatitis, alcoholic, acute Surgical History History of appendectomy History of splenectomy Family History Other Diabetes Social History Smoking and tobacco/nicotine status: current every day tobacco/nicotine user Alcohol intake: current Alcohol intake frequency: 3 or more drinks per day Alcohol type: hard liquor Substance/Drug Use: current Substance/Drug use frequency: daily Adopted: No Caregiver/support person: No Lives independently: No Household members: significant other Marital status: Number of children: 4 Highest education level completed: 12th Grade, No Diploma Current occupational status: unemployed Pets and animals: Yes Leisure activites: other Leisure activities details: None at this time Sexually active: Yes Do you think of yourself as: Straight/Heterosexual Current gender identity: Male Mary Lou/Taoism: Mormon Special mary lou needs: No Agree to transfusion: Yes Vitals/I&O/Wt Last Vital Signs Temp 98.3 F 06/25/25 08:48 Pulse 93 06/25/25 12:19 Resp 16 06/25/25 10:09 BP 149/75 06/25/25 12:19 Pulse Ox 98 06/25/25 12:19 O2 Del Method Room Air 06/25/25 12:36 O2 Flow Rate 2 06/25/25 11:45 06/24/25 06/25/25 06/25/25 22:59 06:59 14:59 Intake Total 2300 / 2300 Balance 2300 / 2300 Weight last 48 hrs Weight 79.832 kg Physical Exam Narrative: Constitutional: Appears uncomfortable Head: NC/AT Eyes: PERRLA, EOMI Ears: Normal external ears. Hearing intact to normal voice. Nose: Normal external nose. No epistaxis. Throat: Dry Respiratory: RUL/RML w/ rhoncihi RLL diminished. No accessory muscle use. On room air. Cardiovascular: Regular rhythm. No murmur. Extremities: No edema bilaterally Gastrointestinal: Soft. ND. +BS TTP at epigastric and LUQ of abdomen Genitourinary: No valerio catheter Data 06/25/25 08:53 06/25/25 08:53 Micro: Microbiology 06/25/25 09:19 Blood Culture - Preliminary Blood SPECIMEN COLLECTED 06/25/25 09:18 Blood Culture - Preliminary Blood SPECIMEN COLLECTED A&P Assessment and plan 1. Acute pancreatitis without infection or necrosis, unspecified pancreatitis type: Plan: # acute pancreatitis - IVF resuscitation with LR at 150 ml/hr - check CRP - Pain control w/ dilaudid IV 0.5 mg Q3H prn - Antiemetics: ondansetron and compazine as needed - Nutrition: ice chips / clear liquid as tolerates # Abnormal liver enzymes AST 136 ALT 117 ALP 641 T.Bili 2.1 - Trend # Acute hypoxic respiratory failure # Atypical respiratory infection Influenza, RSV and COVID-negative - blood cultures collected in ED, pending # RUL PNA / infection CTA CHEST, 06/29/25 Small ill-defined ground-glass opacities with tree-in-bud nodularity in the right upper and middle lobes and lingula likely represents an atypical infectious/inflammatory process. - blood cultures pending - started on levofloxacin - PCT in am # Elevated D-dimer 9.24 ug/mL - CTA chest negative for pulmonary embolism # EtOH dependence w/ intoxication - CIWA per protocol with lorazepam (symptom triggered dosing) - Seizure precaution - MVT, folate and thiamine - Monitor electrolytes and replace accordingly - Supportive care # Anxiety and Depression HOlD Adociaome psych meds, for now, re-evaluate tomorrow as he is getting frequent dilaudid, holding to mitigate risk of sedation in the setting of infection Buspirone 30 mg twice daily Duloxetine 120 mg daily Mirtazapine 30 mg at bedtime Vereniclean clean 1 mg BID Sertraline 100 mg QAM # Tobacco dependence with current use - Current use, smokes 2-2.5 packs/day - Nicotine patch 21 mg daily - Smoking cessation highly encouraged # pancreatic pseudocyst - decresed in size from prior 5 -> 2.5 PDMP PDMP Reviewed: Not Reviewed Attestations Medical Necessity Statement*: The patient will stay more than 2 midnights for the management of acute pancreatitis and pneumonia Coding Level of Care Code 49010 Diagnoses Acute pancreatitis without infection or necrosis, unspecified pancreatitis type K85.90
[2025-06-25] MEDS: heparin 5,000 unit/mL INJ 1 mL 5000 UNIT SUBCUT (14:38)
[2025-06-25 15:35] LABS: Troponin 5 6HR 6.33 ng/L (0-15); Troponin 5 6HR Delta 0.33001 ng/L (0-12)
[2025-06-25] MEDS: thiamine 100 mg/mL 2mL SDV IM (15:37)
[2025-06-25] MEDS: HYDROmorphone 0.5 MG/0.5 ML INJ IVP ×3 (15:46→22:31)
[2025-06-25] MEDS: alum-mag-hydroxide-sime 30 mL UDC PO (20:19)
[2025-06-26] VITALS (11 sets, daily range): BP systolic 127–149; BP diastolic 84–93; PULSE 66–108; RESP 16–18; TEMP 36.4–36.9; O2SAT 94–99
[2025-06-26] MEDS: HYDROmorphone 0.5 MG/0.5 ML INJ IVP ×9 (01:18→21:45)
[2025-06-26] MEDS: heparin 5,000 unit/mL INJ 1 mL 5000 UNIT SUBCUT ×2 (01:18→13:15)
[2025-06-26 03:48] LABS: Hematocrit 43.2 % (37-53); Hemoglobin 15.00 g/dL (11.27-16.99); Mean Corpuscular HGB Conc 34.7 g/dL (30-55); Mean Corpuscular Hemoglobin 34.0 pg (27-33); Mean Corpuscular Volume 98.0 fl (82-101); Nucleated Red Blood Cells % 0 %; Platelet Count 240 10^3/cmm (157-399); Red Blood Count 4.41 10^6/uL (3.85-5.65); White Blood Count 13.80 10^3/uL (3.29-11.43)
[2025-06-26 04:12] LABS: Alanine Aminotransferase 139 U/L (0-41); Albumin Level 4.1 g/dL (3.5-5.2); Anion Gap 14.8 (5-19); Aspartate Amino Transferase 169 U/L (0-40); Blood Urea Nitrogen 9 mg/dL (6-20); Calcium 9.1 mg/dL (8.5-10.5); Carbon Dioxide 31 mmol/L (22-29); Chloride 97 mmol/L (98-107); Globulin 2.8 g/dL (1.3-4.6); Glucose 114 mg/dL (65-115); Magnesium 1.7 mg/dL (1.7-2.3); Osmolality Calculated 288 mOsm/kg (285-295); Potassium 3.8 mmol/L (3.5-5.1); Sodium 139 mmol/L (136-145); Total Protein 6.9 g/dL (6.6-8.7)
[2025-06-26 04:13] LABS: Lipase 121 U/L (13-60)
[2025-06-26 04:15] LABS: Procalcitonin 0.13 ng/mL (0-0.5)
[2025-06-26 04:32] LABS: Alkaline Phosphatase 1119 U/L (40-130)
[2025-06-26] MEDS: multivitamin therapeutic Tablet 1 TAB PO (06:09)
[2025-06-26] MEDS: aztreonam 1,000 MG in sodium chloride 0.9% (plus) 50 ML 100 MG IV ×2 (08:57→20:21)
[2025-06-26] MEDS: ondansetron 2 mg/ML SDV 2 mL 4 MG IVP (09:21)
--- NOTE | 2025-06-26 10:00 | PC.CHAP ---
Pastoral Care Encounter/Spiritual Assessment Type of Contact [] Declined head of talent management visit [] Patient/Family/Request visit [] Outpatient visit [] Follow-up visit [] Physician referral [] Code/Alert [x] Routine visit [] Staff referral [] Actively dying [] Patient sleeping [x] Family support [] [] Out of room [] Palliative care [] [] Receiving care in room [] Pre-surgical visit [] Trauma [] Long length of stay [] ICU visit [] Other: Relational/Emotional Strength [] Patient feels connected with others/family/visitors/staff [] Distress [] Loneliness/isolation [] Abandonment Spirituality of Patient [x] Person of Mary Lou [] Attends Muslim of their Mary Lou [x] Believes in Prayer [] Reads Bible or Anabaptist materials [] There are Spiritual issues to be addressed Mechanical Service Representative Interventions [x] Prayer [x] Active listening [] Non-anxious presence [] Spiritual/emotional support [] Crisis/trauma care [] Spiritual counseling [] Bereavement support [] Provided bereavement packet [x] Provided Bible/devotional materials [] Provided toy/stuffed animal, coloring book to patient or family member [] Provided Communion [] Anointing/Ragley [] Salvation [x] Completed spiritual assessment [] Other: Impact on Illness or Injury [] Angry [] Fearful [] Anxious [] Often cries [] Exhaustion [] Unable to work [] Unable to attend bahai [] Unable to walk/stand [] Unable to read [] Unable to drive [] Unable to eat/drink [] Unable to sleep [] Unable to be with family [] Patient intubated [] Other: Summary Time spent with patient 10 min
[2025-06-26] MEDS: morphine 4 mg/mL SDV 1 mL 2 MG IVP (13:14)
--- NOTE | 2025-06-26 14:26 | USR_ITS ---
PROCEDURE INFORMATION: Exam: US Abdomen; Limited Exam date and time: 06/26/2025 2:41 PM Age: 39 years old Clinical indication: Abdominal pain; Generalized; Additional info: Liver and gallbladder TECHNIQUE: Imaging protocol: Real time ultrasound of the abdomen with image documentation. Limited exam focused on the region of clinical interest. COMPARISON: CT abdomen pelvis w con* [id number] 04/14/2025 11:09 AM FINDINGS: Liver: Mild intrahepatic biliary ductal dilatation. Gallbladder: No cholelithiasis. Gallbladder wall upper limit of normal at 3 mm, nonspecific. Biliary ducts: Common bile duct is dilated up to 7 mm. Pancreas: Visualized portions are unremarkable. Right kidney: No hydronephrosis. US/US abdomen limited [id number] IMPRESSION: Mild common bile duct and intrahepatic biliary ductal dilatation, possibly related to obstruction from presumed pancreatic pseudocyst seen on prior CT abdomen and pelvis 04/14/2025. Correlate clinically.
--- NOTE | 2025-06-26 14:27 | P.PN_ITS ---
Subjective 2 Subjective: Patient was seen this morning, patient's is at bedside - He has a history of pancreatitis, hist ory of pancreatic pseudocyst - Reports persistent abdominal pain, fee ls nauseous, no vomiting, is tolerating clear liquids is passing gas has not had a bowel movement ? Denies any fevers, no chills, - He tells me he followed up with the GI specialist at [facility] they performed an ERCP at that time and his pseudocyst at that time had resolved and did not require drainage Vitals/I&O/Wt Last Vital Signs Temp 97.9 F 06/26/25 11:46 Pulse 73 06/26/25 11:46 Resp 16 06/26/25 13:14 BP 127/84 06/26/25 11:46 Pulse Ox 94 06/26/25 11:46 O2 Del Method Room Air 06/26/25 04:00 O2 Flow Rate 2 06/25/25 11:45 06/25/25 06/26/25 06/26/25 22:59 06:59 14:59 Intake Total 1480 / 3780 1000 / 4780 1890 / 1890 Output Total 600 / 600 Balance 880 / 3180 1000 / 4180 1890 / 1890 Weight last 48 hrs Weight 83.036 kg Weight 79.832 kg Physical Exam 2 Const: COMMON NORMALS: no acute distress and patient oriented x3 Resp: COMMON NORMALS: normal respiratory effort, No retractions, No use of accessory muscles and clear to auscultation bilaterally AUSCULTATION: clear to auscultation bilaterally Cardio: COMMON NORMALS: regular rate, regular rhythm, S1 normal heart sound present and S2 normal heart sound present RATE: regular rate RHYTHM: r egular rhythm HEART SOUNDS: S1 normal heart sound present and S2 normal heart sound present GI: OTHER: Abdomen is soft, nondistended, good bowel sounds, no guarding, no rebound, no rigidity, does have diffuse abdominal tenderness Extremity: COMMON NORMALS: no pedal edema Neuro: COMMON NORMALS: patient oriented x3 Psych: COMMON NORMALS: mental status grossly normal Data 06/26/25 03:33 06/26/25 03:33 Micro: Microbiology 06/25/25 09:19 Blood Culture - Preliminary Blood NEGATIVE TO DATE 06/25/25 09:18 Blood Culture - Preliminary Blood NEGATIVE TO DATE A&P Assessment and plan 1. Acute pancreatitis without infection or necrosis, unspecified pancreatitis type: Plan: # acute pancreatitis -IMPRESSION: 1. Ongoing peripancreatic inflammatory changes along the pancreatic head, compatible with acute pancreatitis with secondary inflammation of the distal stomach and duodenum. Interval decrease in size of a pancreatic pseudocyst now measuring up to 2.5 cm. - Continue IV fluids at 125 cc an hour -Continue aztreonam -Continue Flagyl - Dilaudid 0.5 mg every 2 hours as needed -With morphine for breakthrough pain - Zofran for nausea - Clear liquid for now # Abnormal liver enzymes Will monitor closely Ultrasound abdomen # Acute hypoxic respiratory failure # Concern for right upper lobe and middle lobe pneumonia CT/CT angio chest w abd pel w con IMPRESSION: 1. Small ill-defined ground-glass opacities with tree-in-bud nodularity in the right upper and middle lobes and lingula likely represents an atypical infectious/inflammatory process. Consider follow-up CT chest in 3-6 months to evaluate for improvement. Plan -Aztreonam -Metronidazole - Monitor respiratory status Pulmonary nodules will need to follow-up with pulmonary as outpatient # EtOH dependence w/ intoxication - CIWA per protocol - Seizure precautions # Anxiety and Depression Resume home medications # Tobacco dependence with current use - Smoking cessation counseling # pancreatic pseudocyst - Will need to follow-up with GI # Urinary tract infection - Aztreonam, Flagyl PDMP PDMP Reviewed: Not Reviewed Attestations 2 Medical Necessity Statement*: Patient requires hospitalization for acute pancreatitis, respiratory failure secondary to pneumonia, UTI Diagnoses Acute pancreatitis without infection or necrosis, unspecified pancreatitis type K85.90
[2025-06-26] MEDS: metroNIDAZOLE IV 500 MG/100 ML PREMIX 100 MG IV ×2 (15:04→21:45)
[2025-06-27] VITALS (8 sets, daily range): BP systolic 121–161; BP diastolic 77–91; PULSE 62–76; RESP 16–18; TEMP 36.4–36.9; O2SAT 94–97
[2025-06-27] MEDS: morphine 4 mg/mL SDV 1 mL 2 MG IVP ×2 (00:47→07:48)
[2025-06-27] MEDS: heparin 5,000 unit/mL INJ 1 mL 5000 UNIT SUBCUT ×2 (03:15→14:16)
[2025-06-27] MEDS: multivitamin therapeutic Tablet 1 TAB PO (04:55)
[2025-06-27] MEDS: HYDROmorphone 0.5 MG/0.5 ML INJ IVP ×7 (04:56→23:44)
[2025-06-27 05:34] LABS: Hematocrit 41.6 % (37-53); Hemoglobin 14.00 g/dL (11.27-16.99); Mean Corpuscular HGB Conc 33.7 g/dL (30-55); Mean Corpuscular Hemoglobin 33.3 pg (27-33); Mean Corpuscular Volume 99.0 fl (82-101); Nucleated Red Blood Cells % 0 %; Platelet Count 241 10^3/cmm (157-399); Red Blood Count 4.20 10^6/uL (3.85-5.65); White Blood Count 9.12 10^3/uL (3.29-11.43)
[2025-06-27 05:56] LABS: Alanine Aminotransferase 296 U/L (0-41); Albumin Level 3.5 g/dL (3.5-5.2); Anion Gap 11.8 (5-19); Aspartate Amino Transferase 302 U/L (0-40); Blood Urea Nitrogen 6 mg/dL (6-20); Calcium 8.7 mg/dL (8.5-10.5); Carbon Dioxide 30 mmol/L (22-29); Chloride 103 mmol/L (98-107); Globulin 2.6 g/dL (1.3-4.6); Glucose 113 mg/dL (65-115); Magnesium 1.8 mg/dL (1.7-2.3); Osmolality Calculated 290 mOsm/kg (285-295); Potassium 3.8 mmol/L (3.5-5.1); Sodium 141 mmol/L (136-145); Total Protein 6.1 g/dL (6.6-8.7)
[2025-06-27 06:17] LABS: NT Pro B Type Natriuretic Pept 504 pg/mL (0-125)
[2025-06-27 06:32] LABS: Alkaline Phosphatase 1034 U/L (40-130)
[2025-06-27] MEDS: metroNIDAZOLE IV 500 MG/100 ML PREMIX 100 MG IV ×3 (06:38→23:43)
[2025-06-27] MEDS: ondansetron 2 mg/ML SDV 2 mL 4 MG IVP ×2 (06:52→13:08)
[2025-06-27] MEDS: LORazepam 2 mg/mL INJ 1 mL IVP ×2 (07:48→14:15)
[2025-06-27] MEDS: aztreonam 1,000 MG in sodium chloride 0.9% (plus) 50 ML 100 MG IV ×2 (07:49→19:55)
--- NOTE | 2025-06-27 08:34 | MRR_ITS ---
PROCEDURE INFORMATION: Exam: MR Abdomen Without Contrast Exam date and time: 06/27/2025 12:32 PM Age: 39 years old Clinical indication: Abdominal pain; Localized; Upper; Prior surgery; Surgery date: 6+ months; Surgery type: Spleen; Additional info: Intrahepatic ductal dilatation TECHNIQUE: Imaging protocol: Magnetic resonance imaging of the abdomen without contrast. COMPARISON: CT abdomen pelvis w con* [id number] 04/14/2025 11:09 AM FINDINGS: Liver: Moderately decreased signal of the liver on out of phase imaging relative to in phase imaging. Mild central intrahepatic biliary ductal dilatation. No mass. Gallbladder and biliary ducts: Unremarkable gallbladder. The common bile duct measures 6.9 mm. No ductal calculi as visualized. Pancreas: Pancreatic head cyst measuring 3.6 x 3.2 x 3.1 cm, previously 5.3 x 5.0 x 5.4 cm. The pancreatic duct measures maximally 7.3 mm in the peripheral pancreatic body and tail, narrowing proximally. Peripancreatic and right upper quadrant mesenteric edema about the pancreatic head. Spleen: Prior splenectomy. Adrenal glands: Unremarkable. No mass. Kidneys: Unremarkable. No solid mass. No hydronephrosis. Stomach and bowel: Visualized stomach and intestines are unremarkable. Intraperitoneal space: No free fluid. Vasculature: No abdominal aortic aneurysm. Lymph nodes: No enlarged nodes. Bones/joints: No suspicious lesions. Soft tissues: Unremarkable. MR/MR MRCP [id number] IMPRESSION: 1. Findings consistent with pancreatitis of the pancreatic head, with interval decrease in size of pancreatic head intrapancreatic pseudocyst. 2. Mild fatty infiltration of the liver. 3. Mild intrahepatic and extrahepatic biliary ductal dilatation without ductal calculus identified. 4. Prior splenectomy.
[2025-06-27 13:49] LABS: Lipase 176 U/L (13-60)
--- NOTE | 2025-06-27 16:07 | P.PN_ITS ---
Subjective 2 Subjective: Patient was seen this morning he does report abdominal pain, nausea, although improving, he has passed gas, he did have 2 bowel movements overnight, discussed his transaminitis is elevated alk phos, discussed doing an MRCP he is in agreement, Vitals/I&O/Wt Last Vital Signs Temp 97.6 F 06/27/25 16:00 Pulse 62 06/27/25 16:00 Resp 17 06/27/25 16:00 BP 134/86 06/27/25 16:00 Pulse Ox 96 06/27/25 16:00 O2 Del Method Room Air 06/27/25 16:00 O2 Flow Rate 2 06/25/25 11:45 06/27/25 06/27/25 06/27/25 06:59 14:59 22:59 Intake Total 340 / 4380 2390 / 2390 100 / 2490 Output Total 1000 / 2850 1650 / 1650 275 / 1925 Balance -660 / 1530 740 / 740 -175 / 565 Weight last 48 hrs Weight 82.809 kg Weight 83.036 kg Physical Exam 2 Const: COMMON NORMALS: no acute distress and patient oriented x3 Resp: COMMON NORMALS: normal respiratory effort, No retractions, No use of accessory muscles and clear to auscultation bilaterally AUSCULTATION: clear to auscultation bilaterally Cardio: COMMON NORMALS: regular rate, regular rhythm, S1 normal heart sound present and S2 normal heart sound present RATE: regular rate RHYTHM: r egular rhythm HEART SOUNDS: S1 normal heart sound present and S2 normal heart sound present GI: OTHER: Abdomen soft, slightly distended, good bowel sounds, no guarding, no rebound, no rigidity Extremity: COMMON NORMALS: no pedal edema Neuro: COMMON NORMALS: patient oriented x3 and CN's II-XII intact bilaterally Psych: COMMON NORMALS: mental status grossly normal Data 06/27/25 04:53 06/27/25 04:53 A&P Assessment and plan 1. Acute pancreatitis without infection or necrosis, unspecified pancreatitis type: Plan: # acute pancreatitis -IMPRESSION: 1. Ongoing peripancreatic inflammatory changes along the pancreatic head, compatible with acute pancreatitis with secondary inflammation of the distal stomach and duodenum. Interval decrease in size of a pancreatic pseudocyst now measuring up to 2.5 cm. - Continue IV fluids at 125 cc an hour -Continue aztreonam -Continue Flagyl - Dilaudid 0.5 mg every 2 hours as needed -With morphine for breakthrough pain - Zofran for nausea - Clear liquid for now # Abnormal liver enzymes Will monitor closely Ultrasound abdomen US/US abdomen limited [id number] IMPRESSION: Mild common bile duct and intrahepatic biliary ductal dilatation, possibly related to obstruction from presumed pancreatic pseudocyst seen on prior CT abdomen and pelvis 04/14/2025. Correlate clinically. Will do MRCP # Acute hypoxic respiratory failure # Concern for right upper lobe and middle lobe pneumonia CT/CT angio chest w abd pel w con IMPRESSION: 1. Small ill-defined ground-glass opacities with tree-in-bud nodularity in the right upper and middle lobes and lingula likely represents an atypical infectious/inflammatory process. Consider follow-up CT chest in 3-6 months to evaluate for improvement. Plan -Aztreonam -Metronidazole - Monitor respiratory status Pulmonary nodules will need to follow-up with pulmonary as outpatient # EtOH dependence w/ intoxication - CIWA per protocol - Seizure precautions # Anxiety and Depression Resume home medications # Tobacco dependence with current use - Smoking cessation counseling # pancreatic pseudocyst - Will need to follow-up with GI # Urinary tract infection - Aztreonam, Flagyl Patient requires hospitalization for acute pancreatitis PDMP PDMP Reviewed: Not Reviewed Attestations 2 Medical Necessity Statement*: Patient requires hospitalization for acute pancreatitis, alcohol withdrawal, respiratory failure Diagnoses Acute pancreatitis without infection or necrosis, unspecified pancreatitis type K85.90
[2025-06-28] VITALS (8 sets, daily range): BP systolic 108–164; BP diastolic 74–94; PULSE 63–113; RESP 16–18; TEMP 36.4–36.9; O2SAT 94–97; BMI 25.4
[2025-06-28] MEDS: HYDROmorphone 0.5 MG/0.5 ML INJ IVP ×8 (03:31→21:01)
[2025-06-28] MEDS: heparin 5,000 unit/mL INJ 1 mL 5000 UNIT SUBCUT ×2 (03:31→13:45)
[2025-06-28 04:59] LABS: Hematocrit 43.1 % (37-53); Hemoglobin 14.70 g/dL (11.27-16.99); Mean Corpuscular HGB Conc 34.1 g/dL (30-55); Mean Corpuscular Hemoglobin 33.4 pg (27-33); Mean Corpuscular Volume 98.0 fl (82-101); Nucleated Red Blood Cells % 0 %; Platelet Count 264 10^3/cmm (157-399); Red Blood Count 4.40 10^6/uL (3.85-5.65); White Blood Count 7.92 10^3/uL (3.29-11.43)
[2025-06-28 05:17] LABS: Alanine Aminotransferase 252 U/L (0-41); Albumin Level 3.5 g/dL (3.5-5.2); Anion Gap 14.9 (5-19); Aspartate Amino Transferase 174 U/L (0-40); Blood Urea Nitrogen 6 mg/dL (6-20); Calcium 9.0 mg/dL (8.5-10.5); Carbon Dioxide 28 mmol/L (22-29); Chloride 101 mmol/L (98-107); Globulin 2.9 g/dL (1.3-4.6); Glucose 89 mg/dL (65-115); Magnesium 1.7 mg/dL (1.7-2.3); Osmolality Calculated 287 mOsm/kg (285-295); Potassium 3.9 mmol/L (3.5-5.1); Sodium 140 mmol/L (136-145); Total Protein 6.4 g/dL (6.6-8.7)
[2025-06-28 05:24] LABS: Alkaline Phosphatase 1017 U/L (40-130)
[2025-06-28 05:29] LABS: NT Pro B Type Natriuretic Pept 556 pg/mL (0-125)
[2025-06-28] MEDS: metroNIDAZOLE IV 500 MG/100 ML PREMIX 100 MG IV ×3 (05:59→21:02)
[2025-06-28] MEDS: multivitamin therapeutic Tablet 1 TAB PO (05:59)
[2025-06-28] MEDS: aztreonam 1,000 MG in sodium chloride 0.9% (plus) 50 ML 100 MG IV ×2 (08:24→20:57)
[2025-06-28] MEDS: LORazepam 2 mg/mL INJ 1 mL IVP (08:37)
--- NOTE | 2025-06-28 11:50 | PC.SOCIAL ---
IMM Update pg 2 of IMM Updated and reviewed w/ patient. Copy provided and copy dated, initialed and placed in chart.
[2025-06-28] MEDS: morphine 4 mg/mL SDV 1 mL 2 MG IVP ×2 (14:53→23:22)
--- NOTE | 2025-06-28 16:20 | PM.PN ---
Subjective Subjective: Patient was seen this morning, alert oriented x 3, follow commands, he is passing gas, abdominal pain has improved, no nausea, no vomiting, no lightheadedness, no dizziness, - [facility]'s [facility] scan findings, hyperbilirubinemia, there is no evidence of biliary obstruction, they recommended medical management, of alcohol pancreatitis, no acute interventions, no acute need for ERCP Vitals/I&O/Wt Last Vital Signs Temp 98.2 F 06/28/25 15:58 Pulse 88 06/28/25 15:58 Resp 16 06/28/25 15:58 BP 145/94 06/28/25 15:58 Pulse Ox 97 06/28/25 15:58 O2 Del Method Room Air 06/28/25 15:58 O2 Flow Rate 2 06/25/25 11:45 06/28/25 06/28/25 06/28/25 06:59 14:59 22:59 Intake Total 1502.5 / 4232.5 2580.0 / 2580.0 Output Total 800 / 800 300 / 1100 Balance 1502.5 / 2307.5 1780.0 / 1780.0 -300 / 1480.0 Weight last 48 hrs Weight 82.809 kg Weight 82.809 kg Physical Exam Const: COMMON NORMALS: no acute distress and patient oriented x3 Resp: COMMON NORMALS: normal respiratory effort, No retractions, No use of accessory muscles and clear to auscultation bilaterally AUSCULTATION: clear to auscultation bilaterally Cardio: COMMON NORMALS: regular rate, regular rhythm, S1 normal heart sound present and S2 normal heart sound present RATE: regular rate RHYTHM: regular rhythm HEART SOUNDS: S1 normal heart sound present and S2 normal heart sound present GI: OTHER: Abdomen soft, slightly distended, no guarding, no rebound, no rigidity, good bowel sounds Extremity: COMMON NORMALS: no pedal edema Neuro: COMMON NORMALS: patient oriented x3, CN's II-XII intact bilaterally and moves all extremities Psych: COMMON NORMALS: mental status grossly normal Data 06/28/25 04:42 06/28/25 04:42 A&P Assessment and plan 1. Acute pancreatitis without infection or necrosis, unspecified pancreatitis type: Plan: # acute pancreatitis -IMPRESSION: 1. Ongoing peripancreatic inflammatory changes along the pancreatic head, compatible with acute pancreatitis with secondary inflammation of the distal stomach and duodenum. Interval decrease in size of a pancreatic pseudocyst now measuring up to 2.5 cm. - Continue IV fluids at 125 cc an hour -Continue aztreonam -Continue Flagyl - Dilaudid 0.5 mg every 2 hours as needed -With morphine for breakthrough pain - Zofran for nausea - Clear liquid for now # Abnormal liver enzymes, alcoholic hepatitis Will monitor closely Ultrasound abdomen US/US abdomen limited [id number] IMPRESSION: Mild common bile duct and intrahepatic biliary ductal dilatation, possibly related to obstruction from presumed pancreatic pseudocyst seen on prior CT abdomen and pelvis 04/14/2025. Correlate clinically. MR/MR MRCP [id number] IMPRESSION: 1. Findings consistent with pancreatitis of the pancreatic head, with interval decrease in size of pancreatic head intrapancreatic pseudocyst. 2. Mild fatty infiltration of the liver. 3. Mild intrahepatic and extrahepatic biliary ductal dilatation without ductal calculus identified. 4. Prior splenectomy. Madrey score was 2.5, no acute indication for steroids # Acute hypoxic respiratory failure # Concern for right upper lobe and middle lobe pneumonia CT/CT angio chest w abd pel w con IMPRESSION: 1. Small ill-defined ground-glass opacities with tree-in-bud nodularity in the right upper and middle lobes and lingula likely represents an atypical infectious/inflammatory process. Consider follow-up CT chest in 3-6 months to evaluate for improvement. Plan -Aztreonam -Metronidazole - Monitor respiratory status Pulmonary nodules will need to follow-up with pulmonary as outpatient # EtOH dependence w/ intoxication - CIWA per protocol - Seizure precautions # Anxiety and Depression Resume home medications # Tobacco dependence with current use - Smoking cessation counseling # pancreatic pseudocyst - Will need to follow-up with GI # Urinary tract infection - Aztreonam, Flagyl Patient requires hospitalization for acute pancreatitis, alcoholic hepatitis, respiratory failure, UTI PDMP PDMP Reviewed: Not Reviewed Attestations Medical Necessity Statement*: Patient requires hospitalization for acute pancreatitis, alcoholic hepatitis, pneumonia, UTI Diagnoses Acute pancreatitis without infection or necrosis, unspecified pancreatitis type K85.90
[2025-06-28 16:49] LABS: Ferritin 714 ng/mL (30-400)
[2025-06-28 17:59] LABS: HIV 1 & 2 Antigen Non-Reactive (Non-Reactiv)
--- NOTE | 2025-06-28 22:12 | PC.NURSE ---
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
[2025-06-28 23:00] LABS: Hepatitis A Antibody IgM Non-Reactive (Nonreactive); Hepatitis B Surface Antigen Non-Reactive (Nonreactive)
[2025-06-29] VITALS: BP 123/76; PULSE 67; RESP 17; TEMP 36.8; O2SAT 97
[2025-06-29] MEDS: HYDROmorphone 0.5 MG/0.5 ML INJ IVP ×2 (02:36→08:00)
[2025-06-29] MEDS: heparin 5,000 unit/mL INJ 1 mL 5000 UNIT SUBCUT (02:36)
[2025-06-29 04:00] VITALS: BP 135/92; PULSE 61; RESP 16; TEMP 36.4; O2SAT 100
[2025-06-29] MEDS: multivitamin therapeutic Tablet 1 TAB PO (04:45)
[2025-06-29 04:46] VITALS: RESP 16
[2025-06-29] MEDS: morphine 4 mg/mL SDV 1 mL 2 MG IVP (04:46)
[2025-06-29] MEDS: metroNIDAZOLE IV 500 MG/100 ML PREMIX 100 MG IV (04:46)
[2025-06-29 05:07] LABS: Alanine Aminotransferase 240 U/L (0-41); Albumin Level 3.2 g/dL (3.5-5.2); Anion Gap 10.4 (5-19); Aspartate Amino Transferase 175 U/L (0-40); Blood Urea Nitrogen 6 mg/dL (6-20); Calcium 8.4 mg/dL (8.5-10.5); Carbon Dioxide 30 mmol/L (22-29); Chloride 107 mmol/L (98-107); Globulin 2.6 g/dL (1.3-4.6); Glucose 105 mg/dL (65-115); Magnesium 1.7 mg/dL (1.7-2.3); Osmolality Calculated 294 mOsm/kg (285-295); Potassium 4.4 mmol/L (3.5-5.1); Sodium 143 mmol/L (136-145); Total Protein 5.8 g/dL (6.6-8.7)
[2025-06-29 05:10] LABS: Alkaline Phosphatase 1062 U/L (40-130)
[2025-06-29 05:20] LABS: NT Pro B Type Natriuretic Pept 367 pg/mL (0-125)
[2025-06-29 06:00] VITALS: BMI 25.4
[2025-06-29 07:58] LABS: Hematocrit 42.3 % (37-53); Hemoglobin 14.30 g/dL (11.27-16.99); Mean Corpuscular HGB Conc 33.8 g/dL (30-55); Mean Corpuscular Hemoglobin 33.5 pg (27-33); Mean Corpuscular Volume 99.1 fl (82-101); Nucleated Red Blood Cells % 0 %; Platelet Count 256 10^3/cmm (157-399); Red Blood Count 4.27 10^6/uL (3.85-5.65); White Blood Count 7.08 10^3/uL (3.29-11.43)
[2025-06-29] MEDS: aztreonam 1,000 MG in sodium chloride 0.9% (plus) 50 ML 100 MG IV (07:59)
[2025-06-29 08:00] VITALS: BP 187/87; PULSE 69; RESP 15; TEMP 37.1; O2SAT 98
[2025-06-29 08:23] VITALS: PULSE 68; RESP 16; O2SAT 99
--- NOTE | 2025-06-29 10:04 | PM.DCS ---
Discharge Providers Date of Admission: 06/25/25 11:54 Date of Discharge: June 29, 2025 Attending Provider at Admission: Fernando Hooper Attending Provider at Discharge: Kaleb Juarez MD Primary Care Provider: Mahamed Sales MD Diagnoses at Discharge Discharge Diagnosis 1. Acute pancreatitis without infection or necrosis, unspecified pancreatitis type: Reason for Visit Reason for Visit: chest pain Hospital Course Hospital Course This is a 39-year-old male alcoholism, alcoholism, tobacco abuse, pancreatic pseudocyst, who presents to [facility] due to nausea, vomiting, abdominal pain acute pancreatitis -IMPRESSION: 1. Ongoing peripancreatic inflammatory changes along the pancreatic head, compatible with acute pancreatitis with secondary inflammation of the distal stomach and duodenum. Interval decrease in size of a pancreatic pseudocyst now measuring up to 2.5 cm. - Patient was admitted to [facility] for acute pancreatitis, received IV fluids, IV antibiotics, bowel rest, pain control - Overall patient clinically improved - Will be discharged on GI soft diet - Advised patient to abstain from alcohol consumption, morbidity and mortality discussed -Discharge a short supply of oxycodone to be used sparingly for pain, do not drive or operate her machinery or drink alcohol while using oxycodone - Please hydrate well Abnormal liver enzymes, alcoholic hepatitis Will monitor closely Ultrasound abdomen US/US abdomen limited [id number] IMPRESSION: Mild common bile duct and intrahepatic biliary ductal dilatation, possibly related to obstruction from presumed pancreatic pseudocyst seen on prior CT abdomen and pelvis 04/14/2025. Correlate clinically. MR/MR MRCP [id number] IMPRESSION: 1. Findings consistent with pancreatitis of the pancreatic head, with interval decrease in size of pancreatic head intrapancreatic pseudocyst. 2. Mild fatty infiltration of the liver. 3. Mild intrahepatic and extrahepatic biliary ductal dilatation without ductal calculus identified. 4. Prior splenectomy. Madrey score was 2.5, no acute indication for steroids - Follow-up with GI as outpatient - Patient was advised to abstain from alcohol consumption Patient was admitted for alcohol withdrawal, management on CIWA score, overall clinically improved For acute hypoxic respiratory failure secondary right upper lobe and right middle lobe pneumonia, management with IV antibiotics, discharged on p.o. antibiotics Physical Exam Const: COMMON NORMALS: no acute distress and patient oriented x3 Resp: COMMON NORMALS: normal respiratory effort, No retractions, No use of accessory muscles and clear to auscultation bilaterally AUSCULTATION: clear to auscultation bilaterally Cardio: COMMON NORMALS: regular rate, regular rhythm, S1 normal heart sound present and S2 normal heart sound present RATE: regular rate RHYTHM: regular rhythm HEART SOUNDS: S1 normal heart sound present and S2 normal heart sound present GI: COMMON NORMALS: Normal to inspection, nondistended, normoactive bowel sounds present, Soft to palpation, non-tender and No hepatosplenomegaly present PALPATION: Yes Soft to palpation and Yes No hepatosplenomegaly present Extremity: COMMON NORMALS: no pedal edema Neuro: COMMON NORMALS: patient oriented x3 Psych: COMMON NORMALS: mental status grossly normal Discharge Data Studies Completed and Pending Completed Studies During Hospitalization Category Date Time Status CT Angio Chest + Abdomen Pelvis w/ contrast; 29144 + Cat Scan 06/25/25 10:17 Completed 45999 Stat XR chest 1V portable [id number] Stat Exams 06/25/25 08:51 Completed MR MRCP [id number] Routine MRI 06/27/25 08:34 Completed US abdomen limited [id number] Routine Ultrasound 06/26/25 14:26 Completed Pending at discharge Category Date Time Status [place] Profile Rheumatology Stat Lab 06/28/25 17:30 Received Blood Culture Stat Lab 06/25/25 09:19 Results Radiology Impressions Chest X-Ray 06/25/25 08:51 IMPRESSION: No acute findings. Chest/Abdomen/Pelvis CT 06/25/25 10:17 IMPRESSION: 1. Small ill-defined ground-glass opacities with tree-in-bud nodularity in the right upper and middle lobes and lingula likely represents an atypical infectious/inflammatory process. Consider follow-up CT chest in 3-6 months to evaluate for improvement. 2. Stable pulmonary nodules measuring up to 6 mm. Recommend follow-up CT IMPRESSION: 1. Ongoing peripancreatic inflammatory changes along the pancreatic head, compatible with acute pancreatitis with secondary inflammation of the distal stomach and duodenum. Interval decrease in size of a pancreatic pseudocyst now measuring up to 2.5 cm. 2. No new acute findings. Abdomen Ultrasound 06/26/25 14:26 IMPRESSION: Mild common bile duct and intrahepatic biliary ductal dilatation, possibly related to obstruction from presumed pancreatic pseudocyst seen on prior CT abdomen and pelvis 04/14/2025. Correlate clinically. Cholangiopancreatography MRI 06/27/25 08:34 IMPRESSION: 1. Findings consistent with pancreatitis of the pancreatic head, with interval decrease in size of pancreatic head intrapancreatic pseudocyst. 2. Mild fatty infiltration of the liver. 3. Mild intrahepatic and extrahepatic biliary ductal dilatation without ductal calculus identified. 4. Prior splenectomy. Laboratory Results WBC 7.08 10^3/uL (3.29-11.43) 06/29/25 04:32 RBC 4.27 10^6/uL (3.85-5.65) 06/29/25 04:32 Hgb 14.30 g/dL (11.27-16.99) 06/29/25 04:32 Hct 42.3 % (37-53) 06/29/25 04:32 MCV 99.1 fl (82-101) 06/29/25 04:32 MCH 33.5 pg (27-33) H 06/29/25 04:32 MCHC 33.8 g/dL (30-55) 06/29/25 04:32 RDW 13.1 % (12.1-15.1) 06/29/25 04:32 Plt Count 256 10^3/cmm (157-399) 06/29/25 04:32 MPV 10.4 fL (7.4-10.4) 06/29/25 04:32 Neut % (Auto) 24.3 % 06/29/25 04:32 Lymph % (Auto) 54.1 % 06/29/25 04:32 [place] % (Auto) 12.7 % 06/29/25 04:32 Eos % (Auto) 6.8 % 06/29/25 04:32 Baso % (Auto) 1.3 % 06/29/25 04:32 Neut # (Auto) 1.72 10^3/uL (1.8-7.7) L 06/29/25 04:32 Lymph # (Auto) 3.8 10^3/uL (0.8-4.8) 06/29/25 04:32 [place] # (Auto) 0.9 10^3/uL (0.2-0.9) 06/29/25 04:32 Eos # (Auto) 0.5 10^3/uL (0.0-0.8) 06/29/25 04:32 Baso # (Auto) 0.1 10^3/uL (0.0-0.1) 06/29/25 04:32 Nucleated RBC % (auto) 0 % 06/29/25 04:32 Nucleated RBCs # 0.0 /100WBC 06/29/25 04:32 D-Dimer 9.24 ug/mLFEU (0-0.59) H 06/25/25 08:53 Specimen Type Arterial 06/25/25 09:05 Sample Site Brachial, left 06/25/25 09:05 ABG pH 7.47 (7.35-7.45) H 06/25/25 09:05 ABG pCO2 40.6 mmHg (35-45) 06/25/25 09:05 ABG pO2 63.6 mmHg (80.0-100.0) L 06/25/25 09:05 ABG PO2/FiO2 Ratio 227 06/25/25 09:05 ABG HCO3 29.6 mmol/L (22-26) H 06/25/25 09:05 ABG O2 Saturation 92.0 06/25/25 09:05 ABG Base Excess 5.4 mmol/L (-2.0-2.0) H 06/25/25 09:05 [place] Test N/a 06/25/25 09:05 A-a O2 Gradient 11.3 mmHg (5-10) H 06/25/25 09:05 Hematocrit 50.8 % (42-52) 06/25/25 09:05 Hgb O2 Saturation 90.4 % (95-100) L 06/25/25 09:05 Carboxyhemoglobin 0.8 %THgb (0.4-20.1) 06/25/25 09:05 Methemoglobin 0.9 % (0.4-1.5) 06/25/25 09:05 Total Hemoglobin 16.6 g/dL (14-18) 06/25/25 09:05 Sodium 141.0 mmol/L (131-143) 06/25/25 09:05 Potassium 3.9 mmol/L (3.5-5.0) 06/25/25 09:05 Glucose 144.0 mg/dL (70-115) H 06/25/25 09:05 Ionized Calcium 1.2 mmol/L (1.1-1.4) 06/25/25 09:05 O2 Delivery Device Nc 06/25/25 09:05 O2 Liters/Min 2.0 % 06/25/25 09:05 FiO2 28.0 % 06/25/25 09:05 Home Health Clinician ID Amh 06/25/25 09:05 Sodium 143 mmol/L (136-145) 06/29/25 04:32 Potassium 4.4 mmol/L (3.5-5.1) 06/29/25 04:32 Chloride 107 mmol/L (98-107) 06/29/25 04:32 Carbon Dioxide 30 mmol/L (22-29) H 06/29/25 04:32 Anion Gap 10.4 (5-19) 06/29/25 04:32 BUN 6 mg/dL (6-20) 06/29/25 04:32 Creatinine 0.6 mg/dL (0.7-1.2) L 06/29/25 04:32 GFR Calculation 150.8 mL/min (90-130) H 06/29/25 04:32 Glucose 105 mg/dL (65-115) 06/29/25 04:32 Calculated Osmolality 294 mOsm/kg (285-295) 06/29/25 04:32 Lactic Acid 3.7 mmol/L (0.5-2.2) H 06/25/25 08:53 Lactic Acid (Sepsis) 2.7 mmol/L (0.5-2.2) H 06/25/25 10:39 Calcium 8.4 mg/dL (8.5-10.5) L 06/29/25 04:32 Phosphorus 3.1 mg/dL (2.5-4.5) 06/29/25 04:32 Magnesium 1.7 mg/dL (1.7-2.3) 06/29/25 04:32 Ferritin 714 ng/mL (30-400) H 06/28/25 04:42 Total Bilirubin 1.3 mg/dL (0.15-1.2) H 06/29/25 04:32 Direct Bilirubin 1.99 mg/dL (0.00-0.30) H 06/28/25 04:42 Indirect Bilirubin 0.71 06/28/25 04:42 GGT 1907 U/L (8-61) H 06/27/25 13:17 AST 175 U/L (0-40) H 06/29/25 04:32 ALT 240 U/L (0-41) H 06/29/25 04:32 Alkaline Phosphatase 1062 U/L (40-130) H* 06/29/25 04:32 Troponin T Baseline < 6 ng/L (0-15) 06/25/25 08:53 Troponin T 120 Minute < 6.0 ng/L (0-15) 06/25/25 10:39 Delta Troponin T 0 ABS# (0-10) 06/25/25 10:39 Troponin T Hi Sens 6Hr 6.33 ng/L (0-15) 06/25/25 14:43 Troponin T Hi Sens 6Hr Delta 0.95667 ng/L (0-12) 06/25/25 14:43 C-Reactive Protein 17.4 mg/L (0.0-4.9) H 06/27/25 13:17 NT-Pro-B Natriuret Pep 367 pg/mL (0-125) H 06/29/25 04:32 Total Protein 5.8 g/dL (6.6-8.7) L 06/29/25 04:32 Albumin 3.2 g/dL (3.5-5.2) L 06/29/25 04:32 Globulin 2.6 g/dL (1.3-4.6) 06/29/25 04:32 Lipase 176 U/L (13-60) H 06/27/25 13:17 Procalcitonin 0.13 ng/mL (0-0.5) 06/26/25 03:33 Urine Color [place] (Yellow) A 06/25/25 09:08 Urine Appearance Clear (CLEAR) 06/25/25 09:08 Urine pH 6.0 (5-7) 06/25/25 09:08 Ur Specific [place] 1.022 (1.005-1.030) 06/25/25 09:08 Urine Protein 2+ (Negative) A 06/25/25 09:08 Urine Glucose (UA) Negative (Normal) 06/25/25 09:08 Urine Ketones Trace (Negative) 06/25/25 09:08 Urine Blood Negative (Negative) 06/25/25 09:08 Urine Nitrate Positive (Negative) A 06/25/25 09:08 Urine Bilirubin 2+ (Negative) H 06/25/25 09:08 Urine Urobilinogen 1.0 mg/dL (Negative) 06/25/25 09:08 Ur Leukocyte Esterase 1+ (Negative) A 06/25/25 09:08 Urine RBC 0-2 /hpf (0-2) 06/25/25 09:08 Urine WBC 0-5 /hpf (0-5) 06/25/25 09:08 Ur Squamous Epith Cells 0-5 /hpf (0-5) 06/25/25 09:08 Amorphous Sediment Not Reportable 06/25/25 09:08 Urine Bacteria None seen /hpf (NONE) 06/25/25 09:08 Hyaline Casts 5.77 /lpf 06/25/25 09:08 Urine Mucus 3+ /hpf 06/25/25 09:08 Urine Opiates Screen Negative ng/mL (Negative) 06/25/25 09:08 Ur Barbiturates Screen Negative ng/mL (Negative) 06/25/25 09:08 Ur Phencyclidine Scrn Negative ng/mL (Negative) 06/25/25 09:08 Ur Amphetamines Screen Negative ng/mL (Negative) 06/25/25 09:08 U Benzodiazepines Scrn Negative ng/mL (Negative) 06/25/25 09:08 Urine Cocaine Screen Negative ng/mL (Negative) 06/25/25 09:08 U Marijuana (THC) Screen Positive ng/mL (Negative) H 06/25/25 09:08 Ethyl Alcohol 19 mg/dL (0-10) H 06/25/25 08:53 Hepatitis A IgM Ab Non-reactive (Nonreactive) 06/28/25 04:42 Hep Bs Antigen Non-reactive (Nonreactive) 06/28/25 04:42 Hep B Core IgM Ab Non-reactive (Nonreactive) 06/28/25 04:42 Hepatitis C Antibody Non-reactive (Nonreactive) 06/28/25 04:42 HIV 1&2 Ab & HIV 1 Ag Non-reactive (Non-Reactiv) 06/28/25 04:42 HIV 1&2 Antibody Non-reactive (Non-Reactiv) 06/28/25 04:42 Influenza A (PCR) Negative (Negative) 06/25/25 08:53 Influenza Type B (PCR) Negative (Negative) 06/25/25 08:53 RSV (PCR) Negative (Negative) 06/25/25 08:53 SARS-CoV-2 (PCR) Negative (Negative) 06/25/25 08:53 Vitals Last Vital Signs Temp 98.8 F 06/29/25 08:00 Pulse 68 06/29/25 08:23 Resp 16 06/29/25 08:23 BP 187/87 06/29/25 08:00 Pulse Ox 99 06/29/25 08:23 O2 Del Method Room Air 06/29/25 08:23 O2 Flow Rate 2 06/25/25 11:45 Discharge Plan Discharge Patient Disposition: Home Condition: Stable Prescriptions: New oxycodone 5 mg tablet 5 mg PO Q8H PRN (Reason: pain) 5 Days Qty: 15 0RF folic acid 1 mg Tablet 1 mg PO DAILY 30 Days Qty: 30 0RF levofloxacin 750 mg tablet 750 mg PO DAILY 3 Days Qty: 3 0RF Continued aspirin [Children's Aspirin] 81 mg tablet,chewable 81 mg PO DAILY pregabalin [Lyrica] 25 mg capsule 25 mg PO DAILY atomoxetine 60 mg capsule 60 mg PO DAILY Qty: 30 2RF varenicline tartrate [Chantix Continuing Month Box] 1 mg tablet 1 mg PO BID Qty: 56 2RF buspirone 15 mg tablet 30 mg PO BID Qty: 120 2RF duloxetine 60 mg capsule,delayed release(DR/EC) 120 mg PO DAILY Qty: 60 1RF mirtazapine [Remeron] 30 mg tablet 30 mg PO .HS Qty: 30 2RF levocetirizine 5 mg tablet 5 mg PO DAILY ipratropium bromide 21 mcg (0.03 %) spray,non-aerosol 2 spray INTRANASAL TID pantoprazole [Protonix] 40 mg tablet,delayed release (DR/EC) 40 mg PO DAILY Qty: 10 0RF ondansetron 4 mg tablet,disintegrating 4 mg PO Q6H PRN (Reason: Nausea) sertraline 100 mg Tablet 100 mg PO QAM Qty: 14 0RF Rx Instructions: Take 100 mg for 1 week, then take 50 mg for 1 week, then take 25 mg for 1 week then stop losartan 50 mg tablet 50 mg PO DAILY Qty: 30 0RF thiamine mononitrate (vit B1) [Vitamin B-1 (mononitrate)] 100 mg Tablet 100 mg PO DAILY 30 Days Qty: 30 0RF Held naltrexone microspheres 380 mg suspension,extended rel recon 380 mg IM .[id number] Qty: 1 3RF Hold Instructions: Resume on 07/05/25. Hold until you complete oxycodone Discharge Order = DC NOW: Discharge Order (Routine); Ordered 06/29/25 Ordered By: Kaleb Juarez Referrals: Davis Magallanes MD [Physician, Pulmonology] - 2 weeks Referral Note: pulmonary nodules We have notified your physician's clinic of the need for a follow-up appointment to be scheduled. If you have not heard from them within the next 2 business days, please call them directly. Josh Sanchez MD [Referring, Internal Medicine] - 1 week Referral Note: pancreatitis We have notified your physician's clinic of the need for a follow-up appointment to be scheduled. If you have not heard from them within the next 2 business days, please call them directly. Mahamed Sales MD [Primary Care Provider, [facility]] - 1 week Referral Note: We have notified your physician's clinic of the need for a follow-up appointment to be scheduled. If you have not heard from them within the next 2 business days, please call them directly. Discharge Diet: GI Soft Discharge Activity: Resume usual activity Patient Instructions: Folic Acid (By mouth), Oxycodone, Rapid Release (By mouth), Levofloxacin (By mouth), Pancreatitis (DC), Opioid Safety, Patient Portal & Eli Instructions Activity Restrictions/Additional Instructions: - Please stop drinking alcohol - Please hydrate well, drink at least 2 L of fluid - Please avoid fatty meals, - Follow-up with primary care provider -Recheck your LFTs in 1 week - Follow-up with GI - Please use oxycodone sparingly for pain, do not drive or operate machinery or drink while taking medication Discharge Attestations Time Spent in Discharge Care*: greater than 30 min Status at Discharge: Cognitive status at discharge: cognitively intact, Behavioral status at discharge: cooperative, Quality Metrics Clinical Quality Measures [ No reported AMI, CVA or VTE this stay] Coding Level of Care Code 34064 Total time (in minutes) for Discharge: 45 Diagnoses Acute pancreatitis without infection or necrosis, unspecified pancreatitis type K85.90
[2025-06-29 10:32] VITALS: BP 187/87; PULSE 69; RESP 15; TEMP 37.1; O2SAT 98
[2025-07-01 07:45] LABS: COMPLEMENT COMPONENT C3C 125 mg/dL (82-185); COMPLEMENT COMPONENT C4C 25 mg/dL (15-53)
[2025-07-03 14:30] LABS: COMPLEMENT, TOTAL (CH50) 54 U/mL (31-60)
[2025-07-03 16:31] LABS: CENTROMERE B ANTIBODY <1.0 NEG AI (<1.0 NEG); JO-1 ANTIBODY <1.0 NEG AI (<1.0 NEG); RNP ANTIBODY <1.0 NEG AI (<1.0 NEG); SCL-70 ANTIBODY <1.0 NEG AI (<1.0 NEG); SS-B <1.0 NEG AI (<1.0 NEG)
== END 2025-06-29 10:33 | disposition home or self-care (01) | DRG 438 ==
LOC: ER 11:34 → MEDSURG 12:28
PROVIDERS: Nurse Practitioner Gerontology; Admitting Provider Internal Medicine; Emergency Provider Emergency Medicine; PCP Family Medicine; Visit Provider Family Medicine
DX: K85.20 Alcohol induced acute pancreatitis without necrosis or infection (principal); J18.9 Pneumonia, unspecified organism; J96.01 Acute respiratory failure with hypoxia; K86.3 Pseudocyst of pancreas; F10.239 Alcohol dependence with withdrawal, unspecified; F17.210 Nicotine dependence, cigarettes, uncomplicated; F10.229 Alcohol dependence with intoxication, unspecified; Y90.0 Blood alcohol level of less than 20 mg/100 ml; F90.9 Attention-deficit hyperactivity disorder, unspecified type; F41.1 Generalized anxiety disorder; F12.90 Cannabis use, unspecified, uncomplicated; F43.10 Post-traumatic stress disorder, unspecified; R74.8 Abnormal levels of other serum enzymes; F32.A Depression, unspecified; Z79.82 Long term (current) use of aspirin; Z90.411 Acquired partial absence of pancreas; Z91.51 Personal history of suicidal behavior; Z90.81 Acquired absence of spleen
CPT/HCPCS: 36415; 36600; 71045; 71275; 74177; 74181; 76705; 80051; 80053; 80074; 80306; 80307; 81001; 82247; 82248; 82330; 82728; 82805; 82977; 83605; 83690; 83735; 83880; 84100; 84145; 84484; 85025; 85378; 86140; 86160; 86162; 86235; 86255; 86376; 87040; 87637; 87806; 93005; 94640; 96365; 96372; 96375; 99285; J1171; J1644; J2020; J2060; J2185; J2270; J2405; J2919; J3411; J3490; J7030; J7120; J7613; J9999

== ENCOUNTER → 2025-07-04 08:25 | Outpatient (BNVA) | payer MEDICARE, MEDICAID, SELFPAY ==
[2024-10-17 10:25] VITALS: BP 134/102; BMI 27.0
== END ==
PROVIDERS: PCP Family Medicine; Visit Provider Internal Medicine
DX: R91.8 Other nonspecific abnormal finding of lung field (principal); Z87.01 Personal history of pneumonia (recurrent); Z86.39 Personal history of other endocrine, nutritional and metabolic disease; F17.200 Nicotine dependence, unspecified, uncomplicated; J44.9 Chronic obstructive pulmonary disease, unspecified
CPT/HCPCS: 99204; Q3014

== ENCOUNTER 2025-07-13 10:03 | Emergency (ER) | payer MEDICARE, MEDICAID, SELFPAY ==
[2024-10-17 10:25] VITALS: BP 134/102; BMI 27.0
--- NOTE | 2025-07-13 09:52 | XR_ITS ---
WS: [id number] XR chest 1V portable [id number] REASON FOR EXAM: cp FINDINGS: Chest is unchanged compared to 06/25/2025. The heart and the mediastinum are within normal limits. Calcified granulomatous disease bilaterally. No acute pulmonary parenchymal or pleural abnormality. Chronic blunting of both costophrenic angles. Plate and screw fixation of old right healed right clavicle fracture. XR/XR chest 1V portable [id number] IMPRESSION: Stable chest without acute abnormality.
[2025-07-13 10:04] VITALS: BP 146/102; PULSE 95; RESP 16; TEMP 36.4; O2SAT 96; BMI 25.7
--- NOTE | 2025-07-13 10:06 | ECG_ITS ---
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 Measurements Intervals [place] Rate: 94 P: 53 MN: 150 QRS: 46 QRSD: 99 T: 29 QT: 358 QTc: 448 Interpretive Statements SINUS RHYTHM Compared to ECG 06/25/2025 10:47:27 ST (T wave) deviation no longer present Electronically Signed On 07-13-2025 17:20:54 CPO by Adrian Pearson M.D. [id number]
--- NOTE | 2025-07-13 10:08 | W.ED.CHESTPA ---
HPI - Chest Pain General: Chief Complaint: Chest Pain Stated Complaint: chest pain Time Seen by Provider: 07/13/25 10:05 Source: patient and EMS Mode of arrival: EMS Limitations: no limitations History of Present Illness: 39-year-old male states that he has been having sharp right sided chest pain has been going on for 2 days. He states that he had recently gotten over pneumonia and states that his pain is much worse with palpation. He denies any fevers denies any vomiting has some mild dyspnea. Related Data Home Medications ?Medication ?Instructions ?Recorded ?Confirmed aspirin 81 mg chewable tablet 81 mg PO DAILY 06/22/23 07/04/25 (Children's Aspirin) levocetirizine 5 mg tablet 5 mg PO DAILY 10/31/23 07/04/25 pregabalin 25 mg capsule (Lyrica) 25 mg PO DAILY 03/03/24 07/04/25 ondansetron 4 mg disintegrating 4 mg PO Q6H PRN Nausea 04/14/25 07/04/25 tablet ipratropium bromide 21 mcg (0.03 2 spray intranasal TID 06/25/25 07/04/25 %) nasal spray Previous Rx's ?Medication ?Instructions ?Recorded pantoprazole 40 mg tablet,delayed 40 mg PO DAILY #10 tabs 01/27/24 release (Protonix) losartan 50 mg tablet 50 mg PO DAILY #30 tabs 04/15/25 sertraline 100 mg tablet 100 mg PO QAM #14 tabs 04/15/25 buspirone 15 mg tablet 30 mg (2 x 15 mg) PO BID #120 tabs 05/22/25 duloxetine 60 mg capsule,delayed 120 mg (2 x 60 mg) PO DAILY #60 05/30/25 release caps mirtazapine 30 mg tablet (Remeron) 30 mg PO .HS #30 tabs 06/09/25 naltrexone microspheres 380 mg 380 mg IM .[id number] #1 ea 06/09/25 intramuscular suspension,extended release Held on 06/29/25. Instructions: Resume on 07/05/25. Hold until you complete oxycodone folic acid 1 mg tablet 1 mg PO DAILY 30 days #30 tabs 06/29/25 thiamine mononitrate (vit B1) 100 100 mg PO DAILY 30 days #30 tabs 06/29/25 mg tablet (Vitamin B-1 (mononitrate)) atomoxetine 60 mg capsule 60 mg PO DAILY #30 caps 07/10/25 varenicline tartrate 1 mg tablet 1 mg PO BID #56 tabs 07/10/25 (Chantix Continuing Month Box) naproxen 500 mg tablet (Naprosyn) 500 mg PO BID PRN pain #20 tabs 07/13/25 Allergies Allergy/AdvReac Type Severity Reaction Status Date / Time acamprosate Allergy Intermediate ADR-Depress Verified 07/04/25 08:31 ion piperacillin (From Zosyn) Allergy ADR-Swelling Verified 07/04/25 08:31 of the Eye tazobactam (From Zosyn) Allergy ADR-Swelling Verified 07/04/25 08:31 of the Eye Review of Systems Card: Reports: chest pain [facility] PFSH: Medical History Acute pancreatitis without infection or necrosis, unspecified pancreatitis type Alcohol use disorder, severe, dependence History of ADHD Alcohol use disorder, moderate, dependence Generalized anxiety disorder Cannabis use disorder Pseudocyst, pancreas Abdominal pain Drug allergy Acute chest wall pain Acute pancreatitis Psychiatric care Tobacco use Hypomagnesemia Hepatomegaly Transaminitis Alcohol intoxication Alcoholism Esophagitis Alcohol intoxication Acute pancreatitis Pseudocyst of pancreas Polysubstance abuse History of suicide attempt C7 cervical fracture C2 cervical fracture L4 vertebral fracture Alcohol abuse PTSD (post-traumatic stress disorder) Elevated transaminase level Pancreatitis, alcoholic, acute Surgical History History of appendectomy History of splenectomy Family History Other Diabetes Social History Smoking and tobacco/nicotine status: current every day tobacco/nicotine user (3 1/2 ppd X 23 years) Alcohol intake: current Alcohol intake frequency: 3 or more drinks per day Alcohol type: hard liquor Substance/Drug Use: current Substance/Drug use frequency: daily Adopted: No Caregiver/support person: No Lives independently: No Household members: significant other Marital status: Number of children: 4 Highest education level completed: 12th Grade, No Diploma Current occupational status: unemployed Pets and animals: Yes Leisure activites: other Leisure activities details: None at this time Sexually active: Yes Do you think of yourself as: Straight/Heterosexual Current gender identity: Male Mary Lou/Restorationist: Moravian Special mary lou needs: No Agree to transfusion: Yes Physical Exam Const: COMMON NORMALS: patient oriented x3 HENMT: COMMON NORMALS: normocephalic and atraumatic HEAD & SCALP: normocephalic and atraumatic Eye: COMMON NORMALS: Equal, round and reactive pupils present and EOMs intact bilaterally PUPIL: Yes Equal, round and reactive pupils present Neck/C-Spine: COMMON NORMALS: full ROM and supple Chest: COMMONS NORMALS: normal inspection of the chest OTHER: Point tender on right side of chest reproduces pain Resp: COMMON NORMALS: normal respiratory effort, No retractions, No use of accessory muscles and clear to auscultation bilaterally AUSCULTATION: clear to auscultation bilaterally Cardio: COMMON NORMALS: regular rate, regular rhythm and No murmurs present (Cardio) RATE: regular rate RHYTHM: regular rhythm GI: COMMON NORMALS: Normal to inspection, nondistended, normoactive bowel sounds present, Soft to palpation, non-tender and no masses PALPATION: Yes Soft to palpation Extremity: COMMON NORMALS: normal to inspection and full ROM Neuro: COMMON NORMALS: patient oriented x3, moves all extremities and no focal motor deficits Psych: COMMON NORMALS: mental status grossly normal, Normal thought process present and cooperative THOUGHT PROCESS: Normal thought process present Skin: COMMON NORMALS: no rashes or lesions noted and no wounds GENERAL SKIN EXAM: no rashes or lesions noted Course Vital Signs: Vital signs: Vital Signs Temperature 97.6 F 07/13/25 10:04 Pulse Rate 86 07/13/25 11:08 Respiratory Rate 16 07/13/25 11:08 Blood Pressure 148/103 07/13/25 11:08 Pulse Oximetry 97 07/13/25 11:08 Oxygen Delivery Me thod Room Air 07/13/25 10:13 MDM - Chest Pain Medical Decision Making Patient presents here with chest pain is right-sided and sharp in nature for days differential includes pneumonia, pneumothorax, ACS. Did review interpret his chest x-ray myself showed no acute abnormalities his heart score here is 0 troponin was negative he has no signs of ACS he is point tender on exam his pain is likely muscular in nature. Does have elevated liver enzymes bilirubin alk phos which is chronic has a history of alcohol abuse. He is to follow-up with his PCP and return if worsening he understands agrees plan EKG interpreted by me at 1006 normal sinus rhythm heart rate [address] elevation QRS 99 QTc 410 Medical Records I reviewed the patient's medical records. Lab Data I reviewed the patient's lab results. 07/13/25 10:11 07/13/25 10:11 Radiology Impressions Chest X-Ray 07/13/25 09:52 IMPRESSION: Stable chest without acute abnormality. Laboratory Results WBC 10.54 10^3/uL (3.29-11.43) 07/13/25 10:11 RBC 4.45 10^6/uL (3.85-5.65) 07/13/25 10:11 Hgb 14.90 g/dL (11.27-16.99) 07/13/25 10:11 Hct 43.4 % (37-53) 07/13/25 10:11 MCV 97.5 fl (82-101) 07/13/25 10:11 MCH 33.5 pg (27-33) H 07/13/25 10:11 MCHC 34.3 g/dL (30-55) 07/13/25 10:11 RDW 13.6 % (12.1-15.1) 07/13/25 10:11 Plt Count 493 10^3/cmm (157-399) H 07/13/25 10:11 MPV 9.0 fL (7.4-10.4) 07/13/25 10:11 Neut % (Auto) 55.0 % 07/13/25 10:11 Lymph % (Auto) 32.0 % 07/13/25 10:11 Brooke % (Auto) 9.9 % 07/13/25 10:11 Eos % (Auto) 1.8 % 07/13/25 10:11 Baso % (Auto) 0.7 % 07/13/25 10:11 Neut # (Auto) 5.81 10^3/uL (1.8-7.7) 07/13/25 10:11 Lymph # (Auto) 3.4 10^3/uL (0.8-4.8) 07/13/25 10:11 Brooke # (Auto) 1.0 10^3/uL (0.2-0.9) H 07/13/25 10:11 Eos # (Auto) 0.2 10^3/uL (0.0-0.8) 07/13/25 10:11 Baso # (Auto) 0.1 10^3/uL (0.0-0.1) 07/13/25 10:11 Nucleated RBC % (auto) 0 % 07/13/25 10:11 Nucleated RBCs # 0.0 /100WBC 07/13/25 10:11 Sodium 137 mmol/L (136-145) 07/13/25 10:11 Potassium 4.2 mmol/L (3.5-5.1) 07/13/25 10:11 Chloride 98 mmol/L (98-107) 07/13/25 10:11 Carbon Dioxide 24 mmol/L (22-29) 07/13/25 10:11 Anion Gap 19.2 (5-19) H 07/13/25 10:11 BUN 4 mg/dL (6-20) L 07/13/25 10:11 Creatinine 0.6 mg/dL (0.7-1.2) L 07/13/25 10:11 GFR Calculation 150.8 mL/min (90-130) H 07/13/25 10:11 Glucose 238 mg/dL (65-115) H 07/13/25 10:11 Calculated Osmolality 289 mOsm/kg (285-295) 07/13/25 10:11 Calcium 9.8 mg/dL (8.5-10.5) 07/13/25 10:11 Total Bilirubin 3.8 mg/dL (0.15-1.2) H 07/13/25 10:11 AST 210 U/L (0-40) H 07/13/25 10:11 ALT 350 U/L (0-41) H 07/13/25 10:11 Alkaline Phosphatase 1349 U/L (40-130) H* 07/13/25 10:11 Troponin T Baseline < 6 ng/L (0-15) 07/13/25 10:11 Total Protein 8.2 g/dL (6.6-8.7) 07/13/25 10:11 Albumin 4.5 g/dL (3.5-5.2) 07/13/25 10:11 Globulin 3.7 g/dL (1.3-4.6) 07/13/25 10:11 Lipase 66 U/L (13-60) H 07/13/25 10:11 All radiology interpretation(s) finalized by discharge Discharge Plan Discharge Patient Disposition: Home Clinical Impression: Atypical chest pain Condition: Stable Prescriptions: New naproxen [Naprosyn] 500 mg tablet 500 mg PO BID PRN (Reason: pain) Qty: 20 0RF No Action aspirin [Children's Aspirin] 81 mg tablet,chewable 81 mg PO DAILY pregabalin [Lyrica] 25 mg capsule 25 mg PO DAILY buspirone 15 mg tablet 30 mg PO BID Qty: 120 2RF duloxetine 60 mg capsule,delayed release(DR/EC) 120 mg PO DAILY Qty: 60 1RF naltrexone microspheres 380 mg suspension,extended rel recon 380 mg IM .[id number] Qty: 1 3RF mirtazapine [Remeron] 30 mg tablet 30 mg PO .HS Qty: 30 2RF atomoxetine 60 mg capsule 60 mg PO DAILY Qty: 30 2RF varenicline tartrate [Chantix Continuing Month Box] 1 mg tablet 1 mg PO BID Qty: 56 2RF levocetirizine 5 mg tablet 5 mg PO DAILY ipratropium bromide 21 mcg (0.03 %) spray,non-aerosol 2 spray INTRANASAL TID folic acid 1 mg Tablet 1 mg PO DAILY 30 Days Qty: 30 0RF thiamine mononitrate (vit B1) [Vitamin B-1 (mononitrate)] 100 mg Tablet 100 mg PO DAILY 30 Days Qty: 30 0RF pantoprazole [Protonix] 40 mg tablet,delayed release (DR/EC) 40 mg PO DAILY Qty: 10 0RF ondansetron 4 mg tablet,disintegrating 4 mg PO Q6H PRN (Reason: Nausea) sertraline 100 mg Tablet 100 mg PO QAM Qty: 14 0RF Rx Instructions: Take 100 mg for 1 week, then take 50 mg for 1 week, then take 25 mg for 1 week then stop losartan 50 mg tablet 50 mg PO DAILY Qty: 30 0RF Discharge Orders: Discharge ED (Routine); Ordered 07/13/25 Ordered By: Hannah Feliciano Referrals: Mahamed Sales MD [Primary Care Provider, Family Practice] - 4-7 days Discharge Diet: Advance as tolerated Discharge Activity: Resume usual activity Patient Instructions: Chest Pain (ED) Print Language: Cymraes Coding Level of Care Code ED Turning Lathe Tender for Chg Fwd Heart Score HEART Score Components History: Slightly Suspicous EKG: Normal Age: Less than 45 yrs Risk Factors: No Risk Factors Known Troponin: Baseline Trop <16 ng/L HEART Score RESULT HEART Score: 0
[2025-07-13 10:13] VITALS: BP 133/93; PULSE 93; RESP 19; O2SAT 96
[2025-07-13 10:22] LABS: Hematocrit 43.4 % (37-53); Hemoglobin 14.90 g/dL (11.27-16.99); Mean Corpuscular HGB Conc 34.3 g/dL (30-55); Mean Corpuscular Hemoglobin 33.5 pg (27-33); Mean Corpuscular Volume 97.5 fl (82-101); Nucleated Red Blood Cells % 0 %; Platelet Count 493 10^3/cmm (157-399); Red Blood Count 4.45 10^6/uL (3.85-5.65); White Blood Count 10.54 10^3/uL (3.29-11.43)
[2025-07-13 10:44] LABS: Troponin(5th) Baseline < 6 ng/L (0-15)
[2025-07-13 10:51] LABS: Alanine Aminotransferase 350 U/L (0-41); Albumin Level 4.5 g/dL (3.5-5.2); Anion Gap 19.2 (5-19); Aspartate Amino Transferase 210 U/L (0-40); Blood Urea Nitrogen 4 mg/dL (6-20); Calcium 9.8 mg/dL (8.5-10.5); Carbon Dioxide 24 mmol/L (22-29); Chloride 98 mmol/L (98-107); Globulin 3.7 g/dL (1.3-4.6); Glucose 238 mg/dL (65-115); Lipase 66 U/L (13-60); Osmolality Calculated 289 mOsm/kg (285-295); Potassium 4.2 mmol/L (3.5-5.1); Sodium 137 mmol/L (136-145); Total Protein 8.2 g/dL (6.6-8.7)
--- NOTE | 2025-07-13 10:52 | ECG_ITS ---
[facility] Test Date: 2025-07-13 Pat Name: Elena Hernandez Department: Room: Gender: Male Functional Support Analyst: : 1985 Requested By: Hannah Feliciano Order Number: [id number] Boni MD: Adrian Pearson M.D. Measurements Intervals [place] Rate: 66 P: 59 WY: 142 QRS: 52 QRSD: 94 T: 47 QT: 396 QTc: 416 Interpretive Statements SINUS RHYTHM Compared to ECG 07/13/2025 10:06:16 No significant changes Electronically Signed On 07-13-2025 17:35:52 DIRECTOR REGULATORY COMPLIANCE by Adrian Pearson M.D. [email or web address] [id number]
[2025-07-13 11:05] LABS: Alkaline Phosphatase 1349 U/L (40-130)
[2025-07-13 11:08] VITALS: BP 148/103; PULSE 86; RESP 16; O2SAT 97
== END 2025-07-13 11:13 | disposition home or self-care (01) ==
PROVIDERS: Emergency Provider Emergency Medicine; PCP Family Medicine
DX: R07.89 Other chest pain (principal); Z79.82 Long term (current) use of aspirin; F17.210 Nicotine dependence, cigarettes, uncomplicated
CPT/HCPCS: 71045; 80053; 83690; 84484; 85025; 93005; 96374; 99285; J1885

== ENCOUNTER 2025-07-16 02:34 | Emergency (ER) | payer MEDICARE, MEDICAID, SELFPAY ==
[2024-10-17 10:25] VITALS: BP 134/102; BMI 27.0
[2025-07-16] VITALS (9 sets, daily range): BP systolic 138–154; BP diastolic 95–100; PULSE 75–110; RESP 12–25; TEMP 36.6; O2SAT 93–98; BMI 25.1
--- OUTSIDE RECORDS SUMMARY | 2025-07-16 02:37 | XMS_ITS | Clinical Summary ---
Author Organization [facility] Address [address] [facility] Attn: Epic Prelude ADT CARLA SCHULER [phone] Care Team Providers Care Push Button Switch Assembler Name Role Phone Mahamed Sales MD Primary Care Provider [phone] Allergies Active Allergy Reactions Criticality Noted Date [...] mouth daily. Active naloxone (NARCAN) 4 mg/spray [place], Non-Aerosol EMERGENCY USE ONLY: Administer 1 spray (4 mg) in one nostril one time. May repeat in alternating nostrils every 2-3 min until responsive or EMS arrives. 2 Each 3 01/09/20 24 Active lipase-proteas e-amylase DR Oscar) 36,000-114,000 -180,000 [...] then swallow with saliva. 12 Tablet 06/11/20 24 Active folic acid (FOLVITE) 1 mg tablet Take 1 Tablet by mouth daily. 07/01/20 24 Active mirtazapine (REMERON) 30 mg tablet Take 30 mg by mouth daily at bedtime. 07/01/20 24 Active varenicline (CHANTIX) 1 mg Tablet Take 1 Tablet by mouth 2 times daily. 05/27/20 24 Active chlorhexidine gluconate 0.12 % Mouthwash 15 mL by Mouth/Throat route 2 times daily. 10/21/19 25 Active sucralfate (CARAFATE) 1 gram tablet Take 1 Gram by mouth 3 times daily before meals. 10/14/19 25 Active prochlorperazi ne maleate (COMPAZINE) 10 mg tablet Take 1 Tablet (10 mg) by mouth every 6 hours as needed for Nausea. 25 Tablet 12/13/19 25 Active lisinopriL (PRINIVIL) 20 mg tablet Take 20 mg by mouth daily. Active aspirin (ECOTRIN EC) 81 mg Tablet, Delayed Release (E.C.) Take 81 mg by mouth daily. Active magnesium OXIDE 250 mg magnesium Tablet Take 250 mg by mouth daily. Active DULoxetine (CYMBALTA) 60 mg Capsule, Delayed Release(E.C.) Take 60 mg by mouth 2 times daily. Active pregabalin (LYRICA) 25 mg Capsule Take 1 capsule by mouth once daily at bedtime 30 Capsule 07/04/20 25 Active pregabalin (LYRICA) 25 mg Capsule Take 1 capsule by mouth once daily at bedtime 30 Capsule 05/15/20 25 12/02/2 025 Discontinued Active Problems Problem Noted Date [...] Encounters Date Type Department Care Team Description 07/04/2025 External Device Data STL ABSTRACTION Provider, Abstract 07/04/2025 Refill [facility] Gastroenterology [facility] [address] [place] [address] [place] [phone] Josh Sanchez MD 07/03/2025 12:[address] WORKER - 07/03/2025 11:59 PM [facility] Hospital Encounter [facility] Pain Management Procedures [place] [address] [place] [phone] Lacie Summers PA Discharge Disposition: Home or Self Care 07/03/2025 12:[address] WORKER - 07/03/2025 11:59 PM [facility] Hospital Encounter [facility] Pain Management Procedures [place] [address] [place] [phone] Baldo Blas MD Discharge Disposition: Home or Self Care 06/30/2025 Orders Only [facility] Gastroenterology [facility] [address] [place] [address] [place] [phone] Fernando Hooper MD Acute pancreatitis, unspecified complication status, unspecified pancreatitis type (Primary Dx); Pancreatic pseudocyst 06/27/2025 External Device Data STL ABSTRACTION Provider, Abstract 06/27/2025 External Device Data STL ABSTRACTION Provider, Abstract 06/07/2025 12:[address] WORKER Office Visit [facility] Pain Management [address] [place] [phone] Lacie Summers PA Chronic pain of both knees (Primary Dx); Spondylosis without myelopathy or radiculopathy, lumbar region 05/16/2025 External Device Data STL ABSTRACTION Provider, Abstract 05/16/2025 External Device Data STL ABSTRACTION Provider, Abstract 05/16/2025 External Device Data STL ABSTRACTION Provider, Abstract 05/15/2025 Refill [facility] Gastroenterology - [place] [address] [place] [phone] Josh Sanchez MD 05/08/2025 1:44 PM CDT Anesthesia Event [facility] Endoscopy [address] [place] [phone] Josh Crouch DO Brett, Michael, CRNA 05/08/2025 1:00 PM CDT - 05/08/2025 1:40 PM CDT Surgery [facility] Endoscopy [address] [place] [phone] John Lynch MD ESOPHAGOGASTRODUODENOSCOPY WITH ENDOSCOPIC ULTRASOUND 05/08/2025 11:59 AM CDT - 05/08/2025 2:45 PM CDT Hospital Encounter [facility] Endoscopy [address] [place] [phone] John Lynch MD Discharge Disposition: Home or Self Care 04/17/2025 9:11 AM CDT - 04/17/2025 11:59 PM CDT Hospital Encounter [facility] Pain Management Procedures [place] [address] [place] [phone] Lacie Summers PA Discharge Disposition: Home or Self Care 04/17/2025 8:40 AM CDT - 04/17/2025 11:59 PM CDT Hospital Encounter [facility] Procedures [place] [address] [place] [phone] Baldo Blas MD Discharge Disposition: Home or [...] PNEUM OCOCCAL CONJUGATE VACCINE 20-VALENT (PCV20), POLYSACCHARIDE [id number] CONJUGATE, ADJUVANT 0.5 ML (PF) IM 06/18/2024 [...] who hurts you emotionally and/or physically? No 07/03/2025 Food Insecurity Answer Date Recorded Patient needs follow up regardin 11/23/2024 Transportation Needs Answer Date Record ed Patient needs follow up regardin 11/23/2024 Housing Stability Answer Date Recorded Social/Environmental Concerns No concerns Utility Needs Answer Date Recorded Patient needs follow up regardin 11/23/2024 Sex and Gender Information Value Date Recorded Sex Assigned at Not on file Legal Sex Male 4:[address] Gender Identity Not on file Sexual Orientation Not on file Last Filed Vital Signs Vital Sign Reading Time Taken Comments Blood Pressure 131/80 07/03/2025 1:[address] WORKER Pulse 95 07/03/2025 1:[address] WORKER Temperature 36.3 C (97.4 F) 07/03/2025 12:[address] WORKER Respiratory Rate 16 07/03/2025 1:[address] WORKER Oxygen Saturation 100% 07/03/2025 1:[address] WORKER Inhaled Oxygen Concentration - - Weight 76.2 kg (168 lb) 06/07/2025 11:[address] WORKER Height 180.3 cm (5' 11 ) 06/07/2025 11:[address] WORKER Body Mass Index 23.43 06/07/2025 11:[address] WORKER Plan of Treatment Upcoming Encounters Date Type Department Care Team (Late st Contact Info) Description 07/31/2025 1:[address] WORKER Appointment [facility] Pain Management Procedures [place] [address] [place] [address] Baldo Blas MD [address] [place] [address] 03/19/2026 10:00 AM CDT Office Visit [facility] Gastroenterology- [place] [address] [facility] [address] [place] [address] Josh Sanchez MD [phone] [place] [phone] Health Maintenance Due Date Last Done Comments INFLUENZA VACCINE (#1) 2025 DTAP/TDAP/TD VACCINES (8 - T d or Tdap) 10/16/2032 10/16/2022, 10/26/2013, 05/02/2002, Additional history exists HEPATITIS B VACCINES Completed 10/17/1999, 02/07/1999, 01/08/1999 HPV VACCINES (No Doses Required) Completed Procedures Procedure Name Priority Date/Time Associated Diagnosis Comments XR FLUORO NEEDLE PLACEMENT Routine 07/03 1:[address] WORKER UPPER ENDOSCOPIC ULTRASOUND REPORT 05/08/2025 2:21 PM CDT MS ESOPHAGOGASTRODUODENOSCOP Y US SCOPE W/ADJ STRXRS 05/08/2025 1:00 PM CDT Z90.411 (ICD-10-CM) - V88.12 (ICD-9-CM) - History of partial pancreatectomy, pancreatic pseudocyst, dilated pancreatic duct, hx of pancreatitis Case Notes EUS PCP Mahamed Sanchez patient Z90.411 (ICD-10-CM) - V88.12 (ICD-9-CM) - History of partial pancreatectomy, pancreatic pseudocyst, dilated pancreatic duct, hx of pancreatitis Home State Medicaid XR FLUORO NEEDLE GUIDANCE SPINE Routine 04/17/2025 9:11 AM CDT from Last 3 Months Results * XR FLUORO NEEDLE PLACEMENT (07/03/2025 1:[address] WORKER) Narrative 07/03/2025 1:[address] WORKER Order information only. Exam was auto-finalized. Lacie [facility] ORDERABLES Final Result * UPPER ENDOSCOPIC ULTRASOUND REPORT (05/08/2025 2:21 PM CDT) Narrative Procedure Note John Lynch MD - 05/08/2025 2:21 PM CDT [facility] GI Patient Name: Elena Hernandez Procedure Date: [...] satisfactory condition to undergo the procedure. - Patterson Protocol: - Pre-procedure Verification: Prior to the [...] Scattered hyperechoic foci with shadowing Based on [place] criteria findings indeterminant for chronic pancreatitis on [...] Time Scope In: Scope Out: [address] [place] John Lynch MD GI PROCEDURE ORDERABL ES Final Result * XR FLUORO NEEDLE GUIDANCE SPINE (04/17/2025 9:11 AM CDT) Narrative 04/17/2025 9:14 AM CDT Order information only. Exam was auto-finalized. Lacie [facility] ORDERABLES Final Result from Last 3 Months Insurance [place]ICAID [place] DUAL COMPLETE PPO [facility] [id number] RX INFOCROSSING Medicaid Advance Directives For more information, please contact: [phone] * Full Code (Latest Code Status on [...] 1:02 PM 06/24/2024 12:39 PM Care Teams Push Button Switch Assembler Relationship Specialty Start Date End Date Mahamed Sales MD [address] [phone] PCP - General Family Practice 06/17/24
--- OUTSIDE RECORDS SUMMARY | 2025-07-16 02:37 | XMS_ITS | Clinical Summary ---
Author Organization [facility] Address [address] [place] [address] Phone Care Team Providers Care Lumber Kiln Operator Name Role Phone Unavailable Primary Care [...] 3-dose series) 01/2006 INFLUENZA VACCINE (#1) 2025 HPV VACCINES (No Doses Required) Completed
--- OUTSIDE RECORDS SUMMARY | 2025-07-16 02:37 | XMS_ITS | Data Portability ---
Author Organization CARLA Mcclellan [facility], [facility]LSUDARSHAN [facility] Address [address] [address] Care Team Providers Care Warranty Clerk Name Role Phone SHERWIN PEDRO Primary Care Provider Assessment Encounter Date Assessment Date Assessment LastModified [...] Lab CMP, serum or plasma 2024 025 [facility], [address], [address] [place], [address], 5 05:12:34 Referral gastroenter ologist referral 2024 025 [email or web address] 2 [facility] , [address] [facility], [place], [address], 5 10:54:10 Procedures None recorded. Surgeries None recorded. Imaging None recorded. Medication Orders nystatin 100,000 unit/mL oral suspension 2023 024 [facility] [place], [address] [place], [address], 4 18:03:11 Patient TargetsNo targets recorded. Patient Instructions Encounter Date Encounter Id Patient Instructions Last Modified By Organization Details Last Modified Time 05/06/2024 [id number] Call or return for questions or concerns. Not available 05/06/2024 12:48:23 03/01/2025 [id number] Call or return for questions or concerns. 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 ([facility]) [address] [place], [address], 04/21/2024 15:24:07 03/01/20 25 03/02/2025 COMPR EHENS MARIELY METAB OLIC PANEL glucose 102 mg/dL 65-99 high Fasti ng refer ence inter caridad For someo ne witho ut known diabe kirt, a gluco se value betwe en 100 and 125 mg/dL is consi stent with predi abete s and shoul d be confi rmed with a follo w-up test. Not Available [address], [address], 03/02/2025 05:12:34 03/01/20 25 03/02/2025 COMPR EHENS MARIELY METAB OLIC PANEL urea nitrogen (BUN) 8 mg/dL 7-25 normal Not Available [facility] [address], [address], 03/02/2025 05:12:34 03/01/20 25 03/02/2025 COMPR EHENS MARIELY METAB OLIC PANEL creatinine 0.82 mg/dL 0.60-1 .26 normal Not Available [facility] [address], [address], 03/02/2025 05:12:34 03/01/20 25 03/02/2025 COMPR EHENS MARIELY METAB OLIC PANEL eGFR 115 mL/mi n/1.7 3m2 > or = 60 normal Not Available [facility] [address], [address], 03/02/2025 05:12:34 03/01/20 25 03/02/2025 COMPR EHENS MARIELY METAB OLIC PANEL BUN/creatini ne ratio SEE NOTE: (calc ) 6-22 Not Repor jefferson: BUN and Creat inine are withi n refer ence range . Not Available [facility] [address], [address], 03/02/2025 05:12:34 03/01/20 25 03/02/2025 COMPR EHENS MARIELY METAB OLIC PANEL sodium 134 mmol/ L 135-14 6 low Not Available [facility] [address], [address], 03/02/2025 05:12:34 03/01/20 25 03/02/2025 COMPR EHENS MARIELY METAB OLIC PANEL potassium 4.2 mmol/ L 3.5-5. 3 normal Not Available [facility] [address] [address] [address], [place], [address], 03/02/2025 05:12:34 03/01/2003/02/2025 COMPR EHENS MARIELY METAB OLIC PANEL chloride 100 mmol/ L 98-110 normal Not Available [address], [address], 03/02/2025 05:12:34 03/01/2003/02/2025 COMPR EHENS MARIELY METAB OLIC PANEL carbon dioxide 26 mmol/ L 20-32 normal Not Available [address], [address], 03/02/2025 05:12:34 03/01/2003/02/2025 COMPR EHENS MARIELY METAB OLIC PANEL calcium 9.5 mg/dL 8.6-10 .3 normal Not Available [address], [address], 03/02/2025 05:12:34 03/01/2003/02/2025 COMPR EHENS MARIELY METAB OLIC PANEL protein, total 6.8 g/dL 6.1-8. 1 normal Not Available [address], [address], 03/02/2025 05:12:34 03/01/2003/02/2025 COMPR EHENS MARIELY METAB OLIC PANEL albumin 4.1 g/dL 3.6-5. 1 normal Not Available [facility] [address], [address], 03/02/2025 05:12:34 03/01/2003/02/2025 COMPR EHENS MARIELY METAB OLIC PANEL globulin 2.7 g/dL_ (calc ) 1.9-3. 7 normal Not Available [address], [address], 03/02/2025 05:12:34 03/01/20 25 03/02/2025 COMPR EHENS MARIELY METAB OLIC PANEL albumin/glob ulin ratio 1.5 (calc ) 1.0-2. 5 normal Not Available [address], [address], 03/02/2025 05:12:34 03/01/20 25 03/02/2025 COMPR EHENS MARIELY METAB OLIC PANEL bilirubin, total 3.3 mg/dL 0.2-1. 2 high Not Available [address], [address], 03/02/2025 05:12:34 03/01/20 25 03/02/2025 COMPR EHENS MARIELY METAB OLIC PANEL alkaline phosphatase 454 U/L 36-130 high Not Available [address], [address], 03/02/2025 05:12:34 03/01/20 25 03/02/2025 COMPR EHENS MARIELY METAB OLIC PANEL AST 127 U/L 10-40 high Not Available [address], [address], 03/02/2025 05:12:34 03/01/20 25 03/02/2025 COMPR EHENS MARIELY METAB OLIC PANEL ALT 167 U/L 9-46 high Not Available [address], [address], 03/02/2025 05:12:34 Result Notes None recorded. Problems Name Problem SNOMED Code Status Onset Date Resolution Date Notes Provider Name and Address Organization Details Recorded Time Concussi on Completed 201612/14/2024 Concussi on; Hospital ized; Date: 02/04/20 17; 08/29/19 23 3:27PM by Danny Corona RN, Office Visit; Promoted ; acuity set as *; [facility] 16:07:53 Pancreat itis 69824812 Completed 202212/14/2024 DANNY CORONA [facility], [facility] 16:08:33 Anxiety 97571719 Active 2022 DANNY CORONA [facility], [facility] 16:07:41 Depressi ve disorder 06461013 Active 2022 DANNY CORONA [facility], [facility] 16:07:56 Chronic pain syndrome 608034389 Active 2022 DANNY CORONA [facility], [facility] 16:07:47 Harmful pattern of use of alcohol 93082191 Completed 202212/14/2024 DANNY pringle, [facility] 16:08:24 Erectile dysfunct ion 970980801 Active 2023 DANNY CORONA [facility], [facility] 16:08:16 Seizure 79078837 Active 2024 DANNY CORONA [facility] 16:18:45 Acute pancreat itis 248661854 Active 2024 DANNY CORONA [facility], [facility] 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 5 14:06:17 Mino cook user 034499257 Active 2024 STEFAN pringle [facility], Jose AlbertoLSoraidaCSoraida 5 14:06:30 Alcohol intoxica tion 06841086 Active 2024 STEFAN pringle [facility], Jose AlbertoLSoraidaCSoraida 5 14:06:50 Post-tra umatic stress disorder 24343289 Active 2024 STEFAN pringle [facility], L[facility]LS[facility]idaCSoraida 5 14:07:02 Nausea and vomiting 26463649 Active 2024 DANNY pringle [facility], LSoraidaLSoraidaCSoraida 5 17:48:20 Problem Notes None recorded. Procedures Surgical History Date Name Laterality Status Provider Name and Address Organization Details Recorded Time 02/27/20 25 plain X-ray of chest completed STEFAN SHELDON [facility], Jose AlbertoLSoraidaCSoraida 03/01/2025 13:58:56 02/27/[address] of abdomen and pelvis completed STEFAN SHELDON [facility], Jose AlbertoLSoraidaCSoraida 03/01/2025 14:04:45 procedure on wrist completed Aria lu [facility], L[facility]LS[facility]idaCS[facility]ida 04/21/2024 15:05:09 Splenectomy completed Aria Man [facility], L[facility]LS[facility]idaCS[facility]ida 04/21/2024 15:05:53 Hand tendon reconstruction completed Aria Man [facility] L[facility] 04/21/2024 15:06:30 Imaging Results None recorded. Procedure Notes None recorded. Medical Equipment None Reported. Allergies Allergen ID Allergen Name Allergen Category Reaction Reaction Severity Criticality Documentation Date Start Date Code Code System Note Provider Name and Address Organization Details Recorded Time 61416 Zosyn medicatio n respirato ry distress severe high 04/21/2024 42365 RxNorm Aria pringle [facility], Jose AlbertoLRosa Elena 4 15:00:54 Medications Name [...] MOUTH THREE TIMES DAILY WITH MEALS active 98813kr pt takes up to 10 tabs QD [...] Updated DateTime 5 180.34 cm 25.7 kg/m2 06462.4 g 86 /min 20 /min 98.9 [degF] 118/76 mm[Hg] DANNY CORONA [facility] 5 16:16:26 Date Recorded Body height Body mass index (BMI) Body weight Oxygen saturation Heart rate Systolic And Diastolic Provider Name and Address Organization Details Last Updated DateTime 5 180.34 cm 24.4 kg/m2 19574.6 6 g 98 % 86 /min 114/84 mm[Hg] STEFAN CHUNG [facility] 5 14:14:27 Date Recorded Body height Body temperature Oxygen saturation Heart rate Body mass index (BMI) Body weight Systolic And Diastolic Provider Name and Address Organization Details Last Updated DateTime 4 180.34 cm 98.2 [degF] 95 % 105 /min 25.7 kg/m2 83324 g 162/84 mm[Hg] Delmi Maya [facility] 4 11:55:00 Date Recorded Body height Body mass index (BMI) Body weight Oxygen saturation Heart rate Respiratory rate Body temperature Systolic And Diastolic Provider Name and Address Organization Details Last Updated DateTime 4 180.34 cm 25.8 kg/m2 89246.9 9 g 95 % 103 /min 18 /min 98.6 [degF] 142/90 mm[Hg] MAYKEL HYDE [facility] 4 16:49:26 Date Recorded Body height Body mass index (BMI) Body weight Respiratory rate Body temperature Heart rate Oxygen saturation Systolic And Diastolic Provider Name and Address Organization Details Last Updated DateTime 4 180.34 cm 26 kg/m2 38744.5 8 g 18 /min 98.9 [degF] 110 /min 98 % 110/80 mm[Hg] DANNY SHIY [facility] 4 16:46:31 Social History Question Answer Notes LastModified by M_SOLUTION Details LastModified Time Tobacco Smoking Status Current Every Day Smoker MAYKEL pringle [facility] 01/12/2023 09:37:40 What Was The Date Of Your Most Recent Tobacco Screening? 12/14/2024 Information not available 12/14/2024 What Is Your Relationship Status? Domestic Partner Information not available 01/12/2023 Are You Sexually Active? Yes Information not available 01/12/2023 How Much Tobacco Do You Smoke? 1 PPD Information not available 12/14/2024 Sex: Unknown Functional Status Question Answer Note LastModified by eyefactiveizWorkhint ion Details LastModified Time How many times [...] Details Recorded Time Pneumococcal conjugate PCV20, polysaccharide [id number] conjugate, adjuvant, PF 4 completed DANNY CORONA null, [facility] 06/29/2024 16:35:19 MMR 8 completed MAYKEL OSMAN null, [facility] 01/12/2023 09:35:17 MMR 2 completed MAYKEL OSMAN null, [facility] 01/12/2023 09:35:17 Tdap 3 completed MAYKEL ROMEROWANDER null, [facility] 01/12/2023 09:35:17 Tdap 4 completed MAYKEL SCHMITZER null, [facility] 01/12/2023 09:35:17 Hep B, unspecified formulation 0 completed MAYKEL SCHMITZER null, [facility] 01/12/2023 09:35:17 Hep B, unspecified formulation 9 completed ANGIEBA HEATHERWANDER null, [facility] 01/12/2023 09:35:17 Hep B, unspecified formulation 9 completed ANGIEBA HEATHERWANDER null, [facility] 01/12/2023 09:35:17 OPV, trivalent 7 completed TREBA NEUSCHWANDER null, [facility] 01/12/2023 09:35:17 OPV, trivalent 7 completed TREBA NEUSCHWANDER null, [facility] 01/12/2023 09:35:17 OPV, trivalent 2 completed TREBA NEUSCHWANDER null, [facility] 01/12/2023 09:35:17 OPV, trivalent 7 completed TREBA NEUSCHWANDER null, [facility] 01/12/2023 09:35:17 Td (adult), 2 Lf tetanus toxoid, preservative free, adsorbed 2 completed TREBA NEUSCHWANDER null, [facility] 01/12/2023 09:35:17 Hep A, ped/adol, 2 dose 2 completed TREBA NEUSCHWANDER null, [facility] 01/12/2023 09:35:18 Hib (PRP-T) 8 completed TREBA NEUSCHWANDER null, [facility] 01/12/2023 09:35:18 DTaP 7 completed TREBA NEUSCHWANDER null, [facility] 01/12/2023 09:35:18 DTaP 7 completed TREBA NEUSCHWANDER null, [facility] 01/12/2023 09:35:18 DTaP 2 completed TREBA NEUSCHWANDER null, [facility] 01/12/2023 09:35:18 DTaP 8 completed TREBA NEUSCHWANDER null, [facility] 01/12/2023 09:35:18 DTaP 7 completed MYAKEL OSMAN [facility], Noreen 01/12/2023 09:35:18 Past Encounters Encounter ID Performer Location Encounter Start Date Encounter Closed Date Diagnosis/Indication Diagnosis SNOMED-CT Code Diagnosis ICD10 Code Diagnosis IMO Codes Diagnosis Note [id number] Sherwin Pedro MD [facility] ([facility]) [address] [place] [address] 01/12/2023 09:27:03 01/12/2023 20:16:03 Pancreatitis 84164747 K85.90 Anxiety 58569335 F41.9 Depressive disorder 3548 9007 F32.A Chronic pain syndrome 37 9880071 G89.4 Harmful pa ttern of use of alcohol 35925883 F10.10 [id number] Sherwin Pedro MD [facility] ([facility]) [address] [place] [phone] 5 02/11/2023 16:02:03 02/11/2023 20:08:41 Harmful pattern of use of alcohol 29235322 F10.10 Anxiety 01234553 F41.9 Depressive disorder 3548 9007 F32.A Heartburn 11482012 R12 [id number] Sherwin Pedro MD [facility] ([facility]) [address] [place] [phone] 5 05/13/2023 14:48:08 05/26/2023 11:19:35 Harmful pattern of use of alcohol 67789246 F10.10 Anxiety 71325882 F41.9 Heartburn 25565991 R12 [id number] Sherwin Pedro MD [facility] ([facility]) [address] [place] [address] 5 05/26/2023 13:54:26 05/26/2023 17:53:00 Heartburn 23125452 R12 Pain of left eye 5901669 001 11882 H57.12 Chalazion of lower eyelid 433807325 H00.15 [id number] LINDEN VILLARREAL [facility] ([facility]) [address] [place] [id number] 5 06/30/2023 16:07:37 06/30/2023 18:54:05 Sore throat 946706331 J02.9 Negative strep test today. Acute pharyngitis 662775 003 J02.9 Reassured with negative strep test today. Discussed with patient that this is likely viral and will have to run its course. Can take tylenol/ib uprofen as needed for pain and fevers. If worsening condition or no improvemen t in 7-10 days, return for further evaluation . Patient verbalizes understand ing. [id number] Sherwin Pedro MD [facility] ([facility]) [address] [place] [phone] 5 07/06/2023 13:46:59 07/07/2023 21:55:17 Pancreatitis 04039003 K85.90 Generalize d anxiety disorder 65827373 F41.1 [id number] Salvador Weathers DO [facility] ([facility]) [address] [place] [id number] 5 08/17/2023 13:35:41 08/17/2023 16:24:53 Candidiasis of mouth 73824483 B37.0 Discussed use of liquid Nystatin to swish, gargle, then swallow. Pt is instructed to use until no further white patches are visualized in the mouth, then use an additional 2 days to ensure resolution .Nystatin cream prescribed for corners of the lips. [id number] Mundo Luna MD [facility] ([facility]) [address] [place] [phone] 5 08/25/2023 15:03:37 08/25/2023 18:51:03 Swallowing painful 01947943 R13.19 f/u with pcp if sx do not resolve [id number] LUCIA LUNA PA-C [facility] ([facility]) [address] [place] [phone] 5 08/30/2023 16:30:10 08/30/2023 16:58:08 Epidermoid cyst of skin of ear 916332915 L72.0 Chronic sore throat 0164 95985 J31.2 [id number] Sherwin Pedro MD [facility] ([facility]) [address] [place] [phone] 5 09/14/2023 14:53:58 09/14/2023 15:38:16 Anxiety 49837176 F41.9 Essential hypertension 28343373 I10 [id number] Sherwin Pedro MD [facility] ([facility]) [address] [place] [id number] 5 11/18/2023 14:04:50 11/18/2023 15:20:26 Essential hypertension 86148207 I10 Pancreatitis 80094597 K8 5.90 Nausea and vomiting 1693 2000 R11.2 Candidiasis of mouth 797 47716 B37.0 [id number] Sherwin Pedro MD [facility] ([facility]) [address] [place] [address] 5 12/14/2023 13:21:11 12/14/2023 15:51:19 Dyspnea 436764876 R06.00 Anterior c hest wall pain 706180422 R07.89 Altered eben wel function 01334459 R19.4 Erectile dysfunction 860 278984 F52.21 [id number] Sherwin Pedro MD [facility] ([facility]) [address] [place] [phone] 5 01/19/2024 14:20:31 01/19/2024 15:10:45 Abdominal pain 78566186 R10.9 Chronic pancreatitis 235 511059 K86.1 [id number] Sherwin Pedro MD [facility] ([facility]) [address] [place] [address] 5 02/02/2024 15:14:36 02/02/2024 17:34:27 Harmful pattern of use of alcohol 28353510 F10.10 Essential hypertension 10117758 I10 Anxiety 88363935 F41.9 [id number] Sherwin Pedro MD [facility] ([facility]) [address] [place] [id number] 5 03/15/2024 14:29:57 03/15/2024 15:24:11 Harmful pattern of use of alcohol 94854986 F10.10 Depressive disorder 3548 9007 F32.A Anxiety 61258220 F41.9 Candidiasis of mouth 797 87737 B37.0 Erectile dysfunction 860 706835 F52.21 Dysuria 56353790 R30.0 [id number] Sherwin Pedro MD [facility] ([facility]) [address] [place] [phone] 5 04/12/2024 14:52:03 04/12/2024 16:28:35 Postoperative visit 501611494 Z48.89 Erectile dysfunction 860 799287 F52.21 [id number] KEVIN AMOR CLOTH TE[employer] [facility] ([facility]) [address] [place] [address] [id number] 5 04/21/2024 14:51:28 04/21/2024 17:23:56 Cough 08649469 R05.9 Acute uppe r respiratory infection 13765177 J06.9 Covid negative. Discussed use of otc medication s for symptom management .Push oral fluids and rest.If you develop fever, sob, or start feeling worse then return for re-evaluat ion. [id number] COLBY CHENG [facility] ([facility]) [address] [place] [id number] 5 05/06/2024 11:07:44 05/06/2024 12:58:49 Candidiasis of mouth 42347414 B37.0 [id number] Sherwin Pedro MD [facility] ([facility]) [address] [place] [address]49[address] 5 05/17/2024 16:01:03 05/17/2024 18:02:38 Harmful pattern of use of alcohol 97466610 F10.10 Chronic pain syndrome 37 3913953 G89.4 Anxiety 47946377 F41.9 Pain of ri ght knee joint 7256197072 51202 M25.316 [id number] Sherwin Pedro MD [facility] ([facility]) [address] [place] [address] 69[address]745 5 06/29/2024 16:00:02 06/29/2024 17:50:25 Epigastric pain 81274842 R10.13 [id number] Sherwin Pedro MD [facility] ([facility]) [address] [place] [address] 99737-398 5 12/14/2024 15:55:12 12/16/2024 07:47:49 Seizure 06118440 R56.9 69556 Acute pancreatitis 6007 K85.80 89450060 Alcohol withdrawal 67320 0000 F10.939 37459965 [id number] COLBY CHENG [facility] ([facility]) [address] [place] [address] 03/01/2025 13:56:05 03/01/2025 15:29:25 Acute type B viral hepatitis 43964259 B16.9 024733 Patient education provided to patient from Up-to-date Chronic pancreatitis 235 525622 K86.1 Health Concerns Section Related Observation LastModified by Organization Detai ls LastModified Time None Recorded Concern Status LastModified by Organization Details LastModified Time None Recorded Advance Directives Directive None Recorded Payers Insurance Date Sequence Insurance Name Policy Number Policy Alexander Covered Member ID Alexander Member ID Guarantor Name 01/14/2023 2 *SELF PAY* Sh ea S Girdley 02/28/2025 1 [facility] (MEDICAID HMO) Parker S Girdley [id number] Parker S Girdley 02/28/2025 [facility] (MEDICAID HMO) Parker S Girdley [id number] Parker S Girdley Notes Date Note Type Note Provider Name and Address Organization Details Recorded Time 05/06/2024 text/html Sore ThroatRepor jefferson by PatientHPIFor quality, patient reportsdifficulty swallowingandhoarsenes s. For severity, patient reportsmild. For location, patient reportsbilateral.ROS as noted in the HPI walk in pt.Pt has sores in mouth and throat for 5 days. COLBY CHENG [address] [place] [address], [phone], [facility] L[facility]ida 05/06/2024 12:50:00 05/17/2024 text/html Hypertension IM/FMReported [...] and only drinks beer. Sherwin Pedro MD [address] [place] [address], [phone], [facility] 07/19/2024 13:24:48 06/29/2024 text/html Hospital follow up from 06/09/24, epigastric pain Sherwin Pedro MD [address] [place] [address], [phone], [facility] 07/09/2024 11:28:26 12/14/2024 text/html SeizureReported by PatientHPIFor associated symptoms, patient reportstongue biting,postictal fatigue/tiredness,post ictal headache, andpostictal confusionbut reportsno vomitingandno chest pain. For duration, patient reportslength of seizure: 2 minutes. pt stopped drinking alcohol x2 days ago. Pt had a seizure yesterday at 5:05pm. He was seen in ER at [facility].Patient was in the [place] ER thursday night for flare of pancreatitis. Sherwin Pedro MD [address] [place] [address], [phone], [facility] 12/15/2024 22:55:20 03/01/2025 text/html Abdominal PainRe ported by PatientAbdominal PainFor quality, patient reportscrampingandachi ng. For location, patient reportsruq. For severity, patient reportsmoderate. COLBY CHENG [address] [place] [address], [phone], [facility] 03/01/2025 14:48:57
--- NOTE | 2025-07-16 02:40 | ECG_ITS ---
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 Measurements Intervals Hume Rate: 81 P: 72 OK: 150 QRS: 91 QRSD: 91 T: 77 QT: 382 QTc: 445 Interpretive Statements SINUS RHYTHM BORDERLINE RIGHT AXIS DEVIATION [QRS AXIS > 90] Compared to ECG 07/13/2025 10:51:36 No significant changes Electronically Signed On 07-16-2025 16:55:55 MINE [employer] by Dov Nelson M.D. [email or web address]
--- NOTE | 2025-07-16 02:54 | XRR_ITS ---
PROCEDURE INFORMATION: Exam: XR Chest Exam date and time: 07/16/2025 3:10 AM Age: 39 years old Clinical indication: Chest pressure; Prior surgery; Surgery date: 6+ months; Surgery type: Clavicle fixation. Splenectomy; C/O chest pain; Additional info: Cp TECHNIQUE: Imaging protocol: Radiologic exam of the chest. Views: 1 view. COMPARISON: CR XR chest 1V portable [id number] 07/13/2025 10:12 AM FINDINGS: Lungs: Unremarkable. No consolidation. Pleural spaces: No focal consolidation, pleural effusion, or pneumothorax. Heart/Mediastinum: Unremarkable. No cardiomegaly. Bones/joints: Right clavicle ORIF. XR/XR chest 1V portable [id number] IMPRESSION: No focal consolidation, pleural effusion, or pneumothorax.
[2025-07-16 03:02] LABS: Hematocrit 40.6 % (37-53); Hemoglobin 14.20 g/dL (11.27-16.99); Mean Corpuscular HGB Conc 35.0 g/dL (30-55); Mean Corpuscular Hemoglobin 33.6 pg (27-33); Mean Corpuscular Volume 96.0 fl (82-101); Nucleated Red Blood Cells % 0 %; Platelet Count 416 10^3/cmm (157-399); Red Blood Count 4.23 10^6/uL (3.85-5.65); White Blood Count 11.53 10^3/uL (3.29-11.43)
[2025-07-16] MEDS: morphine 4 mg/mL SDV 1 mL IVP (03:12)
[2025-07-16] MEDS: ondansetron 2 mg/ML SDV 2 mL 4 MG IVP (03:12)
--- NOTE | 2025-07-16 04:07 | ED_ITS ---
HPI - Chest Pain 2 General: Chief Complaint: Chest Pain Stated Complaint: CP Time Seen by Provider: 07/16/25 02:51 History of Present Illness: Patient is a 39-year-old male presenting with severe chest pain described as constant, stabbing, and burning in nature. The pain is located primarily along his diaphragm, predominantly on the right side but also extending to the left. He reports associated shortness of breath. The patient states he was diagnosed with pneumonia approximately one week ago. Two days prior to this visit, he was evaluated and reportedly diagnosed with pleurisy). Since then, his symptoms have progressively worsened. He denies fever or productive cough. The pain is significantly impacting his daily activities and sleep. Patient reports being unable to perform normal activities due to the severity of his symptoms. Related Data Home Medications ?Medication ?Instructions ?Recorded ?Confirmed aspirin 81 mg chewable tablet 81 mg PO DAILY 06/22/23 07/04/25 (Children's Aspirin) levocetirizine 5 mg tablet 5 mg PO DAILY 10/31/2309/27 pregabalin 25 mg capsule (Lyrica) 25 mg PO DAILY 03/0307/04/25 ondansetron 4 mg disintegrating 4 mg PO Q6H PRN Nausea 04/14/25 07/04/25 tablet ipratropium bromide 21 mcg (0.03 2 spray intranasal TI D 06/25/25 07/04/25 %) nasal spray Previous Rx's ?Medication ?Instructions ?Recorded pantoprazole 40 mg tablet,delayed 40 mg PO DAILY #10 t abs 01/27/24 release (Protonix) losartan 50 mg tablet 50 mg PO DAILY #30 tabs 04/03 10/25 sertraline 100 mg tablet 100 mg PO QAM #14 tabs 04/15 buspirone 15 mg tablet 30 mg (2 x 15 mg) PO BID #12 0 tabs 05/22/25 duloxetine 60 mg capsule,delayed 120 mg (2 x 60 mg) PO DAILY #60 05/30/25 release caps mirtazapine 30 mg tablet (Remeron) 30 mg PO .HS #30 ta bs 06/09/25 naltrexone microspheres 380 mg 380 mg IM .[id number] #1 e a 06/09/25 intramuscular suspension,extended release Held on 06/29/25. Instructions: Resume on 07/05/25. Hold until you complete oxycodone folic acid 1 mg tablet 1 mg PO DAILY 30 days #30 ta bs 06/29/25 thiamine mononitrate (vit B1) 100 100 mg PO DAILY 30 d ays #30 tabs 06/29/25 mg tablet (Vitamin B-1 (mononitrate)) atomoxetine 60 mg capsule 60 mg PO DAILY #30 caps 03/27 varenicline tartrate 1 mg tablet 1 mg PO BID #56 tabs 07/10/25 (Chantix Continuing Month Box) naproxen 500 mg tablet (Naprosyn) 500 mg PO BID PRN pa in #20 tabs 07/13/25 Allergies Allergy/AdvReac Type Severity Reaction Status Date / Time acamprosate Allergy Intermediate ADR-Depress Verified 07/04/25 08:31 ion piperacillin (From Zosyn) Allergy ADR-Swelling Verified 07/04/25 08:31 of the Eye tazobactam (From Zosyn) Allergy ADR-Swelling Verified 07/04/25 08:31 of the Eye [facility] 2 PFSH: Medical History Acute pancreatitis without infection or necrosis, unspecified pancreatitis type Alcohol use disorder, severe, dependence History of ADHD Alcohol use disorder, moderate, dependence Generalized anxiety disorder Cannabis use disorder Pseudocyst, pancreas Abdominal pain Drug allergy Acute chest wall pain Acute pancreatitis Psychiatric care Tobacco use Hypomagnesemia Hepatomegaly Transaminitis Alcohol intoxication Alcoholism Esophagitis Alcohol intoxication Acute pancreatitis Pseudocyst of pancreas Polysubstance abuse History of suicide attempt C7 cervical fracture C2 cervical fracture L4 vertebral fracture Alcohol abuse PTSD (post-traumatic stress disorder) Elevated transaminase level Pancreatitis, alcoholic, acute Surgical History History of appendectomy History of splenectomy Family History Other Diabetes Social History Smoking and tobacco/nicotine status: current every day tobacco/nicotine user (3 1/2 ppd X 23 years) Alcohol intake: current Alcohol intake frequency: 3 or more drinks per day Alcohol type: hard liquor Substance/Drug Use: current Substance/Drug use frequency: daily Adopted: No Caregiver/support person: No Lives independently: No Household members: significant other Marital status: Number of children: 4 Highest education level completed: 12th Grade, No Diploma Current occupational status: unemployed Pets and animals: Yes Leisure activites: other Leisure activities details: None at this time Sexually active: Yes Do you think of yourself as: Straight/Heterosexual Current gender identity: Male Mary Lou/Catholic: Jewish Special mary lou needs: No Agree to transfusion: Yes Physical Exam 2 Const: COMMON NORMALS: no acute distress GENERAL APPEARANCE: cooperative, ill appearing and odor of alcohol detected HENMT: COMMON NORMALS: normocephalic, atraumatic and Normal external nose present HEAD & SCALP: normocephalic and atraumatic FACE & SINUS: normal facial exam and face symmetric NOSE: Normal external nose present Eye: COMMON NORMALS: Equal, round and reactive pupils present and EOMs intact bilaterally PUPIL: Yes Equal, round and reactive pupils present Neck/C-Spine: GENERAL: Yes trachea midline Chest: CHEST: Yes Symmetrical chest wall rise Resp: COMMON NORMALS: normal respiratory effort, No retractions, No use of accessory muscles and clear to auscultation bilaterally AUSCULTATION: clear to auscultation bilaterally Cardio: COMMON NORMALS: regular rate and regular rhythm RATE: regular rate RHYTHM: regular rhythm GI: COMMON NORMALS: Soft to palpation PALPATION: Yes Soft to palpation, Yes Tenderness to palpation present (GI) (Epigastric) and Yes Guarding due to palpation present (GI) Extremity: COMMON NORMALS: no pedal edema Neuro: GENE COMA SCALE: document GCS findings Gene coma scale eye opening: Spontaneous Gene coma scale verbal response: Orientated Marquez coma scale motor response: Obey commands Gene coma scale total score: 15 S ENSORY EXAM: Yes extremities (intact) Psych: COMMON NORMALS: speech normal SPEECH: Yes normal speech Skin: COMMON NORMALS: no rashes or lesions noted GENERAL SKIN EXAM: no rashes or lesions noted Course 2 Vital Signs: Vital signs: Vital Signs Temperature 97.8 F 07/16/25 02:35 Pulse Rate 93 07/16/25 05:49 Respiratory Rate 25 H 07/16/25 05:49 Blood Pressure 138/99 07/16/25 05:49 Pulse Oximetry 97 07/16/25 05:49 Oxygen Delivery Me thod Room Air 07/16/25 02:35 MDM - Chest Pain Medical Decision Making 39-year-old male here quite often with pancreatitis complaints. He complains of epigastric and lower chest pain, right sided greater than left. He is improved after pain medication here. His white blood cell count is 11.5. His platelet count is 416. BMP is not remarkable. Liver enzymes show an AST of 164 ALT of 217 and an alk phos of 1158. This is actually less than it was last week lipase is down to 110 from 500. His ethyl alcohol level is 136 this morning. His bilirubin is 4.8. D-dimer is elevated, but is less elevated than it was prior. Cardiac enzymes are nondetectable. This patient had a MR cholangiogram on 06/27. It showed findings consistent with pancreatitis with a decrease in size of his pseudocyst that is chronic. There was no ductal calculus identified in his biliary system. Hyperbilirubinemia is most likely related to his alcoholism. Admission is not likely to benefit the patient. He is stable for discharge. Lab Data 07/16/25 02:50 07/16/25 03:24 Radiology Impressions Chest X-Ray 07/16/25 02:54 IMPRESSION: No focal consolidation, pleural effusion, or pneumothorax. Laboratory Results WBC 11.53 10^3/uL (3.29-11.43) H 07/16/25 02:50 RBC 4.23 10^6/uL (3.85-5.65) 07/16/25 02:50 Hgb 14.20 g/dL (11.27-16.99) 07/16/25 02:50 Hct 40.6 % (37-53) 07/16/25 02:50 MCV 96.0 fl (82-101) 07/16/25 02:50 MCH 33.6 pg (27-33) H 07/16/25 02:50 MCHC 35.0 g/dL (30-55) 07/16/25 02:50 RDW 13.9 % (12.1-15.1) 07/16/25 02:50 Plt Count 416 10^3/cmm (157-399) H 07/16/25 02:50 MPV 9.6 fL (7.4-10.4) 07/16/25 02:50 Neut % (Auto) 50.9 % 07/16/25 02:50 Lymph % (Auto) 37.6 % 07/16/25 02:50 [place] % (Auto) 9.3 % 07/16/25 02:50 Eos % (Auto) 1.4 % 07/16/25 02:50 Baso % (Auto) 0.5 % 07/16/25 02:50 Neut # (Auto) 5.87 10^3/uL (1.8-7.7) 07/16/25 02:50 Lymph # (Auto) 4.3 10^3/uL (0.8-4.8) 07/16/25 02:50 [place] # (Auto) 1.1 10^3/uL (0.2-0.9) H 07/16/25 02:50 Eos # (Auto) 0.2 10^3/uL (0.0-0.8) 07/16/25 02:50 Baso # (Auto) 0.1 10^3/uL (0.0-0.1) 07/16/25 02:50 Nucleated RBC % (auto) 0 % 07/16/25 02:50 Nucleated RBCs # 0.0 /100WBC 07/16/25 02:50 D-Dimer 3.98 ug/mLFEU (0-0.59) H 07/16/25 03:24 Sodium 142 mmol/L (136-145) 07/16/25 03:24 Potassium 4.3 mmol/L (3.5-5.1) 07/16/25 03:24 Chloride 101 mmol/L (98-107) 07/16/25 03:24 Carbon Dioxide 29 mmol/L (22-29) 07/16/25 03:24 Anion Gap 16.3 (5-19) 07/16/25 03:24 BUN 5 mg/dL (6-20) L 07/16/25 03:24 Creatinine 0.5 mg/dL (0.7-1.2) L 07/16/25 03:24 GFR Calculation 186.1 mL/min (90-130) H 07/16/25 03:24 Glucose 135 mg/dL (65-115) H 07/16/25 03:24 Calculated Osmolality 293 mOsm/kg (285-295) 07/16/25 03:24 Calcium 9.5 mg/dL (8.5-10.5) 07/16/25 03:24 Total Bilirubin 4.8 mg/dL (0.15-1.2) H 07/16/25 03:24 AST 164 U/L (0-40) H 07/16/25 03:24 ALT 217 U/L (0-41) H 07/16/25 03:24 Alkaline Phosphatase 1158 U/L (40-130) H* 07/16/25 03:24 Troponin T Baseline < 6 ng/L (0-15) 07/16/25 03:24 Troponin T 60 Minute < 6.0 ng/L (0-15) 07/16/25 04:03 Delta Troponin T 0 ABS# (0-10) 07/16/25 04:03 NT-Pro-B Natriuret Pep < 36 pg/mL (0-125) 07/16/25 03:24 Total Protein 6.7 g/dL (6.6-8.7) 07/16/25 03:24 Albumin 4.4 g/dL (3.5-5.2) 07/16/25 03:24 Globulin 2.3 g/dL (1.3-4.6) 07/16/25 03:24 Lipase 110 U/L (13-60) H 07/16/25 03:24 Ethyl Alcohol 136 mg/dL (0-10) H 07/16/25 03:24 All radiology interpretation(s) finalized by discharge EKG Data EKG 1: Interpretation: EKG completed at 0240, read at 0244 shows a sinus rhythm, borderline right axis deviation. Rate is 80. QTc is 419, no ST wave changes. Discharge Plan Discharge Patient Disposition: Home Clinical Impression: Atypical chest pain, Abdominal pain, epigastric Condition: Stable Prescriptions: No Action aspirin [Children's Aspirin] 81 mg tablet,chewable 81 mg PO DAILY pregabalin [Lyrica] 25 mg capsule 25 mg PO DAILY buspirone 15 mg tablet 30 mg PO BID Qty: 120 2RF duloxetine 60 mg capsule,delayed release(DR/EC) 120 mg PO DAILY Qty: 60 1RF naltrexone microspheres 380 mg suspension,extended rel recon 380 mg IM .[id number] Qty: 1 3RF mirtazapine [Remeron] 30 mg tablet 30 mg PO .HS Qty: 30 2RF atomoxetine 60 mg capsule 60 mg PO DAILY Qty: 30 2RF varenicline tartrate [Chantix Continuing Month Box] 1 mg tablet 1 mg PO BID Qty: 56 2RF levocetirizine 5 mg tablet 5 mg PO DAILY ipratropium bromide 21 mcg (0.03 %) spray,non-aerosol 2 spray INTRANASAL TID folic acid 1 mg Tablet 1 mg PO DAILY 30 Days Qty: 30 0RF thiamine mononitrate (vit B1) [Vitamin B-1 (mononitrate)] 100 mg Tablet 100 mg PO DAILY 30 Days Qty: 30 0RF pantoprazole [Protonix] 40 mg tablet,delayed release (DR/EC) 40 mg PO DAILY Qty: 10 0RF ondansetron 4 mg tablet,disintegrating 4 mg PO Q6H PRN (Reason: Nausea) sertraline 100 mg Tablet 100 mg PO QAM Qty: 14 0RF Rx Instructions: Take 100 mg for 1 week, then take 50 mg for 1 week, then take 25 mg for 1 week then stop losartan 50 mg tablet 50 mg PO DAILY Qty: 30 0RF naproxen [Naprosyn] 500 mg tablet 500 mg PO BID PRN (Reason: pain) Qty: 20 0RF Discharge Orders: Discharge ED (Routine); Ordered 07/16/25 Ordered By: Demetrio King Referrals: Mahamed Sales MD [Primary Care Provider, Family Practice] - 1-3 days Patient Instructions: Abdominal Pain (ED), Opioid Safety, Pain Management, Patient Portal & Eli Instructions Activity Restrictions/Additional Instructions: Avoid alcohol consumption, and will worsen your pain and symptoms. Follow a liquid diet for the next 48 hours. Advance as tolerated. Return for problems. Call your doctor tomorrow for follow-up appointment. Print Language: Welsh Coding Level of Care Code ED Psychology Intern for Chg Fwd Heart Score HEART Score Components History: Slightly Suspicous EKG: Normal Age: Less than 45 yrs Risk Factors: No Risk Factors Known Troponin: Baseline Trop <16 ng/L HEART Score RESULT HEART Score: 0
[2025-07-16 04:23] LABS: Troponin(5th) Baseline < 6 ng/L (0-15)
[2025-07-16 04:32] LABS: Alanine Aminotransferase 217 U/L (0-41); Albumin Level 4.4 g/dL (3.5-5.2); Alcohol Level 136 mg/dL (0-10); Anion Gap 16.3 (5-19); Aspartate Amino Transferase 164 U/L (0-40); Blood Urea Nitrogen 5 mg/dL (6-20); Calcium 9.5 mg/dL (8.5-10.5); Carbon Dioxide 29 mmol/L (22-29); Chloride 101 mmol/L (98-107); Globulin 2.3 g/dL (1.3-4.6); Glucose 135 mg/dL (65-115); Lipase 110 U/L (13-60); NT Pro B Type Natriuretic Pept < 36 pg/mL (0-125); Osmolality Calculated 293 mOsm/kg (285-295); Potassium 4.3 mmol/L (3.5-5.1); Sodium 142 mmol/L (136-145); Total Protein 6.7 g/dL (6.6-8.7)
[2025-07-16 04:36] LABS: Alkaline Phosphatase 1158 U/L (40-130)
[2025-07-16] MEDS: HYDROmorphone 0.5 MG/0.5 ML INJ 1 MG IVP (05:20)
== END 2025-07-16 05:51 | disposition home or self-care (01) ==
PROVIDERS: Emergency Provider Emergency Medicine; PCP Family Medicine
DX: R07.89 Other chest pain (principal); R10.13 Epigastric pain; F17.200 Nicotine dependence, unspecified, uncomplicated
CPT/HCPCS: 36415; 71045; 80053; 80307; 83690; 83880; 84484; 85025; 85378; 93005; 96374; 96375; 99285; J1171; J1885; J2270; J2405

== ENCOUNTER 2025-07-23 06:03 | Emergency (ER) | payer MEDICARE, MEDICAID, SELFPAY ==
[2024-10-17 10:25] VITALS: BP 134/102; BMI 27.0
[2025-07-23 06:05] VITALS: BP 126/89; PULSE 97; RESP 18; TEMP 36.6; O2SAT 99; BMI 23.3
--- NOTE | 2025-07-23 06:08 | ECG_ITS ---
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
--- NOTE | 2025-07-23 06:08 | XRR_ITS ---
PROCEDURE INFORMATION: Exam: XR Chest Exam date and time: 07/23/2025 6:16 AM Age: 39 years old Clinical indication: Chest pressure; Prior surgery; Surgery date: 6+ months; Surgery type: Clavicle fixation. Splenectomy; C/O chest pain TECHNIQUE: Imaging protocol: Radiologic exam of the chest. Views: 1 view. COMPARISON: CR (CHEST, ) 07/16/2025 3:10 AM FINDINGS: Lungs: Unremarkable. No consolidation. Pleural spaces: Unremarkable. No pleural effusion. No pneumothorax. Heart/Mediastinum: Unremarkable. No cardiomegaly. Bones/joints: ORIF of a remote right clavicle fracture. XR/XR chest 1V portable [id number] IMPRESSION: No acute cardiopulmonary findings.
--- NOTE | 2025-07-23 06:11 | ED_ITS ---
HPI - General Adult 2 General: Chief complaint: Chest Pain Stated complaint: cp Time Seen by Provider: 07/23/25 06:06 History of Present Illness: 39-year-old male Presents emergency fco m with right sided chest pain right upper quadrant and epigastric pain. Denies hematochezia melena hematemesis or coffee-ground emesis. Patient has a history of chronic alcohol use and recurrent pancreatitis. 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 Patient states he has had the discomfort for the last several days. No fever sweats chills no recent trauma or falls. Associated symptoms: Reports chest pain and nausea; Deny dyspnea, rash or vomiting Related Data Home Medications ?Medication ?Instructions ?Recorded ?Confirmed aspirin 81 mg chewable tablet 81 mg PO DAILY 06/22/23 07/23/25 (Children's Aspirin) levocetirizine 5 mg tablet 5 mg PO DAILY 10/31/2307/04 pregabalin 25 mg capsule (Lyrica) 25 mg PO DAILY 03/0307/23/25 ondansetron 4 mg disintegrating 4 mg PO Q6H PRN Nausea 04/14/25 07/23/25 tablet ipratropium bromide 21 mcg (0.03 2 spray intranasal TI D 06/25/25 07/23/25 %) nasal spray naltrexone microspheres 380 mg 380 mg IM .[id number] 07/0407/23/25 intramuscular suspension,extended release (Vivitrol) Previous Rx's ?Medication ?Instructions ?Recorded pantoprazole 40 mg tablet,delayed 40 mg PO DAILY #10 t abs 01/27/24 release (Protonix) losartan 50 mg tablet 50 mg PO DAILY #30 tabs 04/03 10/25 sertraline 100 mg tablet 100 mg PO QAM #14 tabs 04/15 buspirone 15 mg tablet 30 mg (2 x 15 mg) PO BID #12 0 tabs 05/22/25 duloxetine 60 mg capsule,delayed 120 mg (2 x 60 mg) PO DAILY #60 05/30/25 release caps mirtazapine 30 mg tablet (Remeron) 30 mg PO .HS #30 ta bs 06/09/25 folic acid 1 mg tablet 1 mg PO DAILY 30 days #30 ta bs 06/29/25 thiamine mononitrate (vit B1) 100 100 mg PO DAILY 30 d ays #30 tabs 06/29/25 mg tablet (Vitamin B-1 (mononitrate)) atomoxetine 60 mg capsule 60 mg PO DAILY #30 caps 03/27 varenicline tartrate 1 mg tablet 1 mg PO BID #56 tabs 07/10/25 (Chantix Continuing Month Box) naproxen 500 mg tablet (Naprosyn) 500 mg PO BID PRN pa in #20 tabs 07/13/25 promethazine 25 mg tablet 25 mg PO Q6H PRN nausea and 07/23/25 vomiting #20 tabs sucralfate 1 gram tablet (Carafate) 1 g PO Q6H PRN sto mach upset/pain 07/23/25 #40 tabs Allergies Allergy/AdvReac Type Severity Reaction Status Date / Time acamprosate Allergy Intermediate ADR-Depress Verified 07/23/25 06:11 ion piperacillin (From Zosyn) Allergy ADR-Swelling Verified 07/23/25 06:11 of the Eye tazobactam (From Zosyn) Allergy ADR-Swelling Verified 07/23/25 06:11 of the Eye Review of Systems 2 Const: Denies: fever(s) or chills Card: Reports: chest pain Resp: Denies: dyspnea GI: Reports: abdominal pain and nausea; Denies: vomiting, hematemesis, coffee ground emesis, hematochezia or melena : Denies: dysuria, urinary frequency or urinary urgency Musc: Denies: neck pain or back pain Skin/Breast: Denies: rash PFSH ED 2 PFSH: Medical History Acute pancreatitis without infection or necrosis, unspecified pancreatitis type Alcohol use disorder, severe, dependence History of ADHD Alcohol use disorder, moderate, dependence Generalized anxiety disorder Cannabis use disorder Pseudocyst, pancreas Abdominal pain Drug allergy Acute chest wall pain Acute pancreatitis Psychiatric care Tobacco use Hypomagnesemia Hepatomegaly Transaminitis Alcohol intoxication Alcoholism Esophagitis Alcohol intoxication Acute pancreatitis Pseudocyst of pancreas Polysubstance abuse History of suicide attempt C7 cervical fracture C2 cervical fracture L4 vertebral fracture Alcohol abuse PTSD (post-traumatic stress disorder) Elevated transaminase level Pancreatitis, alcoholic, acute Surgical History History of appendectomy History of splenectomy Family History Other Diabetes Social History Smoking and tobacco/nicotine status: current every day tobacco/nicotine user (3 1/2 ppd X 23 years) Alcohol intake: current Alcohol intake frequency: 3 or more drinks per day Alcohol type: hard liquor Substance/Drug Use: current Substance/Drug use frequency: daily Adopted: No Caregiver/support person: No Lives independently: No Household members: significant other Marital status: Number of children: 4 Highest education level completed: 12th Grade, No Diploma Current occupational status: unemployed Pets and animals: Yes Leisure activites: other Leisure activities details: None at this time Sexually active: Yes Do you think of yourself as: Straight/Heterosexual Current gender identity: Male Mary Lou/Buddhism: Protestant Special mary lou needs: No Agree to transfusion: Yes Physical Exam 2 Const: COMMON NORMALS: no acute distress GENERAL APPEARANCE: cooperative and comfortable ORIENTATION/CONSCIOUSNESS: Yes awake, Yes oriented to person, Yes oriented to place and Yes oriented to time HENMT: COMMON NORMALS: normocephalic, atraumatic and hearing grossly normal bilaterally HEAD & SCALP: normocephalic and atraumatic Eye: OTHER: Icteric sclera Resp: COMMON NORMALS: normal respiratory effort, No retractions, No use of accessory muscles and clear to auscultation bilaterally AUSCULTATION: clear to auscultation bilaterally Cardio: COMMON NORMALS: regular rate, regular rhythm and No murmurs present (Cardio) RATE: regular rate RHYTHM: regular rhythm GI: COMMON NORMALS: Soft to palpation and No hepatosplenomegaly present A USCULTATION: Yes normoactive bowel sounds PALPATION: Yes Soft to palpation, No Tenderness to palpation present (GI), No Guarding due to palpation present (GI) and Yes No hepatosplenomegaly present Extremity: COMMON NORMALS: normal to inspection, capillary refill normal, no clubbing, cyanosis or edema, no calf tenderness and no pedal edema Neuro: SENSORIUM/ORIENTATION: Yes oriented to person, Yes oriented to place and Yes oriented to time Skin: COMMON NORMALS: no rashes or lesions noted GENERAL SKIN EXAM: no rashes or lesions noted Course 2 Vital Signs: Vital signs: Vital Signs Temperature 97.9 F 07/23/25 06:05 Pulse Rate 89 07/23/25 10:38 Respiratory Rate 18 07/23/25 06:32 Blood Pressure 138/98 07/23/25 10:38 Pulse Oximetry 100 07/23/25 10:38 Oxygen Delivery Me thod Room Air 07/23/25 08:30 MDM - General Adult Medical Decision Making Medical decision making Social determinants: Heavy alcohol use I reviewed the patient's medical record. I reviewed the patient's current home meds. Alternate historians: None Differential diagnosis: Acute cholecystitis, acute on chronic pancreatitis, alcoholic gastritis, bowel obstruction, gastric or duodenal ulcer Lab Review: Labs reviewed as found in the chart. White count normal hemoglobin 15.6 platelets 298 differential is normal. PT and PTT in normal ranges. BUN 5 creatinine 0.3 glucose 124. Total bilirubin 10 AST 254 ALT 398 alk phos 2478 ammonia level 62. Blood alcohol level 75 Imaging: Ultrasound shows persistent pancreatic cyst no significant change no signs of acute cholecystitis Assessment of risk Level of risk: Moderate Hospitalization considerations: Consideration for hospitalization when patient first arrived if patient potentially could need admission if has flareup of pancreatitis GI bleed. Reexamination: Improved Assessment and plan: Patient has been drinking heavily yesterday. Reviewed the lab findings with him. I think his bump in enzymes and bilirubin are a result of continued drinking. His ammonia level while slightly elevated is not significantly elevated. He has no signs of hepatic encephalopathy. His PT and PTT are in normal ranges yet. Discussion with patient about the need for abstinence from alcohol discharge him home he should follow-up with his primary care doctor within the next week to recheck liver functions if you see worsening of symptoms return Lab Data 07/23/25 06:10 07/23/25 06:10 Radiology Impressions Chest X-Ray 07/23/25 06:08 IMPRESSION: No acute cardiopulmonary findings. Gallbladder Ultrasound 07/23/25 07:31 IMPRESSION: 1. No acute findings. 2. Pancreatic head cyst similar to prior examinations, likely a pseudocyst from prior pancreatitis. 3. Borderline gallbladder wall thickening is nonspecific. No other sonographic evidence of acute cholecystitis. Laboratory Results WBC 8.10 10^3/uL (3.29-11.43) 07/23/25 06:10 RBC 4.64 10^6/uL (3.85-5.65) 07/23/25 06:10 Hgb 15.60 g/dL (11.27-16.99) 07/23/25 06:10 Hct 42.0 % (37-53) 07/23/25 06:10 MCV 90.5 fl (82-101) 07/23/25 06:10 MCH 33.6 pg (27-33) H 07/23/25 06:10 MCHC 37.1 g/dL (30-55) 07/23/25 06:10 RDW 16.6 % (12.1-15.1) H 07/23/25 06:10 Plt Count 298 10^3/cmm (157-399) 07/23/25 06:10 MPV 9.7 fL (7.4-10.4) 07/23/25 06:10 Neut % (Auto) 45.7 % 07/23/25 06:10 Lymph % (Auto) 39.4 % 07/23/25 06:10 [place] % (Auto) 10.6 % 07/23/25 06:10 Eos % (Auto) 2.8 % 07/23/25 06:10 Baso % (Auto) 1.0 % 07/23/25 06:10 Neut # (Auto) 3.70 10^3/uL (1.8-7.7) 07/23/25 06:10 Lymph # (Auto) 3.2 10^3/uL (0.8-4.8) 07/23/25 06:10 [place] # (Auto) 0.9 10^3/uL (0.2-0.9) 07/23/25 06:10 Eos # (Auto) 0.2 10^3/uL (0.0-0.8) 07/23/25 06:10 Baso # (Auto) 0.1 10^3/uL (0.0-0.1) 07/23/25 06:10 Nucleated RBC % (auto) 0 % 07/23/25 06:10 Nucleated RBCs # 0.0 /100WBC 07/23/25 06:10 PT 11.60 SECONDS (12.1-14.9) L 07/23/25 06:10 INR 0.80 (0.8-1.2) 07/23/25 06:10 APTT 25.5 SECONDS (23.9-36.7) 07/23/25 06:10 Sodium 137 mmol/L (136-145) 07/23/25 06:10 Potassium 4.6 mmol/L (3.5-5.1) 07/23/25 06:10 Chloride 97 mmol/L (98-107) L 07/23/25 06:10 Carbon Dioxide 27 mmol/L (22-29) 07/23/25 06:10 Anion Gap 17.6 (5-19) 07/23/25 06:10 BUN 5 mg/dL (6-20) L 07/23/25 06:10 Creatinine 0.3 mg/dL (0.7-1.2) L 07/23/25 06:10 GFR Calculation 335.5 mL/min (90-130) H 07/23/25 06:10 Glucose 124 mg/dL (65-115) H 07/23/25 06:10 Calculated Osmolality 283 mOsm/kg (285-295) L 07/23/25 06:10 Calcium 9.9 mg/dL (8.5-10.5) 07/23/25 06:10 Total Bilirubin 10.0 mg/dL (0.15-1.2) H* 07/23/25 06:10 AST 254 U/L (0-40) H 07/23/25 06:10 ALT 398 U/L (0-41) H 07/23/25 06:10 Alkaline Phosphatase 2478 U/L (40-130) H* 07/23/25 06:10 Ammonia 62 umol/L (16-60) H 07/23/25 06:10 Troponin T Baseline < 6 ng/L (0-15) 07/23/25 06:10 Troponin T 60 Minute < 6.0 ng/L (0-15) 07/23/25 07:06 Delta Troponin T 0 ABS# (0-10) 07/23/25 07:06 Total Protein 6.9 g/dL (6.6-8.7) 07/23/25 06:10 Albumin 4.1 g/dL (3.5-5.2) 07/23/25 06:10 Globulin 2.8 g/dL (1.3-4.6) 07/23/25 06:10 Lipase 23 U/L (13-60) 07/23/25 06:10 Ethyl Alcohol 75 mg/dL (0-10) H 07/23/25 06:10 All radiology interpretation(s) finalized by discharge EKG Data EKG 1: I personally reviewed and interpreted this EKG as follows: Interpretation: EKG 07/23/2025 6:08 AM sinus rhythm rate of 90 NH interval 151 QTc [address] elevation no T wave inversion. Compared to EKG 07/16/2025 no significant change Computer generated interpretation: Chest X-Ray 07/23/25 06:08 IMPRESSION: No acute cardiopulmonary findings. Gallbladder Ultrasound 07/23/25 07:31 IMPRESSION: 1. No acute findings. 2. Pancreatic head cyst similar to prior examinations, likely a pseudocyst from prior pancreatitis. 3. Borderline gallbladder wall thickening is nonspecific. No other sonographic evidence of acute cholecystitis. Discharge Plan Discharge Patient Disposition: Home Clinical Impression: Alcoholic gastritis, Alcohol use disorder, severe, dependence, Elevated LFTs, Acquired hyperbilirubinemia Condition: Stable Prescriptions: New sucralfate [Carafate] 1 gram tablet 1 g PO Q6H PRN (Reason: stomach upset/pain) Qty: 40 0RF promethazine 25 mg tablet 25 mg PO Q6H PRN (Reason: nausea and vomiting) Qty: 20 0RF No Action aspirin [Children's Aspirin] 81 mg tablet,chewable 81 mg PO DAILY pregabalin [Lyrica] 25 mg capsule 25 mg PO DAILY buspirone 15 mg tablet 30 mg PO BID Qty: 120 2RF duloxetine 60 mg capsule,delayed release(DR/EC) 120 mg PO DAILY Qty: 60 1RF mirtazapine [Remeron] 30 mg tablet 30 mg PO .HS Qty: 30 2RF atomoxetine 60 mg capsule 60 mg PO DAILY Qty: 30 2RF varenicline tartrate [Chantix Continuing Month Box] 1 mg tablet 1 mg PO BID Qty: 56 2RF levocetirizine 5 mg tablet 5 mg PO DAILY ipratropium bromide 21 mcg (0.03 %) spray,non-aerosol 2 spray INTRANASAL TID folic acid 1 mg Tablet 1 mg PO DAILY 30 Days Qty: 30 0RF thiamine mononitrate (vit B1) [Vitamin B-1 (mononitrate)] 100 mg Tablet 100 mg PO DAILY 30 Days Qty: 30 0RF pantoprazole [Protonix] 40 mg tablet,delayed release (DR/EC) 40 mg PO DAILY Qty: 10 0RF ondansetron 4 mg tablet,disintegrating 4 mg PO Q6H PRN (Reason: Nausea) sertraline 100 mg Tablet 100 mg PO QAM Qty: 14 0RF Rx Instructions: Take 100 mg for 1 week, then take 50 mg for 1 week, then take 25 mg for 1 week then stop losartan 50 mg tablet 50 mg PO DAILY Qty: 30 0RF naproxen [Naprosyn] 500 mg tablet 500 mg PO BID PRN (Reason: pain) Qty: 20 0RF Vivitrol 380 mg suspension,extended rel recon 380 mg IM .[id number] Discharge Orders: Discharge ED (Routine); Ordered 07/23/25 Ordered By: Isael Nolbe Referrals: Mahamed Sales MD [Primary Care Provider, Family Practice] Discharge Diet: Clear Liquid Discharge Activity: Increase activity as tolerated Patient Instructions: Alcohol Use Disorder (ED), Opioid Safety, Pain Management, Patient Portal & Eli Instructions Activity Restrictions/Additional Instructions: [facility]. It is very important that you follow up as instructed or that you return to the Emergency Department should you have concerns or if your condition changes or worsens in any way. Emergency department visits are focused on emergent conditions, in some cases you may require further evaluation on an outpatient basis. You are seen emergency room with complaints of abdominal discomfort. There is no sign of acute pancreatitis or acute cholecystitis. Your discomfort is from your stomach from alcoholic gastritis. Your liver enzymes are increased further than they have been in the past as is your bilirubin. Continued alcohol use will continue to aggravate this problem. You should to have your liver functions rechecked within a week. Return to the emergency room if you have any worsening or changes symptoms. (Please note that included in your discharge packet is information concerning opioid safety and pain management. This information is given to all patients were discharged from the ER regardless of their discharge diagnosis or the medicines they usually take or are prescribed.) Print Language: Wolof Coding Level of Care Code ED Gas Maker for Marko Avery
--- OUTSIDE RECORDS SUMMARY | 2025-07-23 06:12 | XMS_ITS | Data Portability ---
Author Organization CARLA Mcclellan [facility] Address [address] [address] Care Team Providers Care Movie Theater Usher Name Role Phone SHERWIN PEDRO Primary Care Provider [phone] Assessment Encounter Date Assessment Date Assessment LastModified [...] Lab CMP, serum or plasma 2024 025 [facility], [address], [address] [place], [address], 5 05:12:34 Referral gastroenter ologist referral 2024 025 astrange1 2 [facility] , [address] [facility], [place], [address], 5 10:54:10 Procedures None recorded. Surgeries None recorded. Imaging None recorded. Medication Orders nystatin 100,000 unit/mL oral suspension 2023 024 [facility] [place], [address] [place], [address], 4 18:03:11 Patient TargetsNo targets recorded. Patient Instructions Encounter Date Encounter Id Patient Instructions Last Modified By Organization Details Last Modified Time 05/06/2024 [id number] Call or return for questions or concerns. Not available 05/06/2024 12:48:23 03/01/2025 [id number] Call or return for questions or concerns. 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 Cover Operator Referral for Acute type B viral hepatitis Referring Physician: Noreen Delgado, Family Medicine, Encounter Date: 03/01/2025 Results Created Date Observation Date Name Description Value Unit Range Abnormal Flag Note LastModifiedBy Organization Detail LastModifiedTime 04/21/2004/21/2024 SARS CoV 2 RNA, QL, nasop haryn x COVID negati ve Not Available [facility] [address] [place], [address], 04/21/2024 15:24:07 03/01/20 25 03/02/2025 COMPR EHENS MARIELY METAB OLIC PANEL glucose 102 mg/dL 65-99 high Fasti ng refer ence inter caridad For someo ne witho ut known diabe kirt, a gluco se value betwe en 100 and 125 mg/dL is consi stent with predi abete s and shoul d be confi rmed with a follo w-up test. Not Available [address], [address], 03/02/2025 05:12:34 03/01/20 25 03/02/2025 COMPR EHENS MARIELY METAB OLIC PANEL urea nitrogen (BUN) 8 mg/dL 7-25 normal Not Available [facility] [address], [address], 03/02/2025 05:12:34 03/01/20 25 03/02/2025 COMPR EHENS MARIELY METAB OLIC PANEL creatinine 0.82 mg/dL 0.60-1 .26 normal Not Available [facility] [address], [address], 03/02/2025 05:12:34 03/01/20 25 03/02/2025 COMPR EHENS MARIELY METAB OLIC PANEL eGFR 115 mL/mi n/1.7 3m2 > or = 60 normal Not Available [facility] [address], [address], 03/02/2025 05:12:34 03/01/20 25 03/02/2025 COMPR EHENS MARIELY METAB OLIC PANEL BUN/creatini ne ratio SEE NOTE: (calc ) 6-22 Not Repor jefferson: BUN and Creat inine are withi n refer ence range . Not Available [facility] [address], [address], 03/02/2025 05:12:34 03/01/20 25 03/02/2025 COMPR EHENS MARIELY METAB OLIC PANEL sodium 134 mmol/ L 135-14 6 low Not Available [facility] [address], [address], 03/02/2025 05:12:34 03/01/20 25 03/02/2025 COMPR EHENS MARIELY METAB OLIC PANEL potassium 4.2 mmol/ L 3.5-5. 3 normal Not Available [facility] [place] [address] [address], [place], [address], 03/02/2025 05:12:34 03/01/2003/02/2025 COMPR EHENS MARIELY METAB OLIC PANEL chloride 100 mmol/ L 98-110 normal Not Available [address], [address], 03/02/2025 05:12:34 03/01/2003/02/2025 COMPR EHENS MARIELY METAB OLIC PANEL carbon dioxide 26 mmol/ L 20-32 normal Not Available [address], [address], 03/02/2025 05:12:34 03/01/2003/02/2025 COMPR EHENS MARIELY METAB OLIC PANEL calcium 9.5 mg/dL 8.6-10 .3 normal Not Available [address], [address], 03/02/2025 05:12:34 03/01/2003/02/2025 COMPR EHENS MARIELY METAB OLIC PANEL protein, total 6.8 g/dL 6.1-8. 1 normal Not Available [address], [address], 03/02/2025 05:12:34 03/01/2003/02/2025 COMPR EHENS MARIELY METAB OLIC PANEL albumin 4.1 g/dL 3.6-5. 1 normal Not Available [facility] [address], [address], 03/02/2025 05:12:34 03/01/2003/02/2025 COMPR EHENS MARIELY METAB OLIC PANEL globulin 2.7 g/dL_ (calc ) 1.9-3. 7 normal Not Available [address], [address], 03/02/2025 05:12:34 03/01/20 25 03/02/2025 COMPR EHENS MARIELY METAB OLIC PANEL albumin/glob ulin ratio 1.5 (calc ) 1.0-2. 5 normal Not Available [address], [address], 03/02/2025 05:12:34 03/01/20 25 03/02/2025 COMPR EHENS MARIELY METAB OLIC PANEL bilirubin, total 3.3 mg/dL 0.2-1. 2 high Not Available [address], [address], 03/02/2025 05:12:34 03/01/20 25 03/02/2025 COMPR EHENS MARIELY METAB OLIC PANEL alkaline phosphatase 454 U/L 36-130 high Not Available [address], [address], 03/02/2025 05:12:34 03/01/20 25 03/02/2025 COMPR EHENS MARIELY METAB OLIC PANEL AST 127 U/L 10-40 high Not Available [address], [address], 03/02/2025 05:12:34 03/01/20 25 03/02/2025 COMPR EHENS MARIELY METAB OLIC PANEL ALT 167 U/L 9-46 high Not Available [address], [address], 03/02/2025 05:12:34 Result Notes None recorded. Problems Name Problem SNOMED Code Status Onset Date Resolution Date Notes Provider Name and Address Organization Details Recorded Time Concussi on Completed 201612/14/2024 Concussi on; Hospital ized; Date: 02/04/20 17; 08/29/19 23 3:27PM by Danny Corona RN, Office Visit; Promoted ; acuity set as *; [facility] 16:07:53 Pancreat itis 52812405 Completed 202212/14/2024 DANNY CORONA [facility], [facility] 16:08:33 Anxiety 95485191 Active 2022 DANNY CORONA [facility], [facility] 16:07:41 Depressi ve disorder 78715893 Active 2022 DANNY CORONA [facility], [facility] 16:07:56 Chronic pain syndrome 956903288 Active 2022 DANNY CORONA [facility], [facility] 16:07:47 Harmful pattern of use of alcohol 73519197 Completed 202212/14/2024 DANNY pringle, [facility] 16:08:24 Erectile dysfunct ion 956506804 Active 2023 DANNY CORONA [facility], [facility] 16:08:16 Seizure 36958410 Active 2024 DANNY CORONA [facility] 16:18:45 Acute pancreat itis 520615986 Active 2024 DANNY CORONA [facility], [facility] 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 5 14:06:17 Mino cook user 755151085 Active 2024 STEFAN pringle [facility], Jose AlbertoLSoraidaCSoraida 5 14:06:30 Alcohol intoxica tion 78989484 Active 2024 STEFAN pringle [facility], Jose AlbertoLSoraidaCSoraida 5 14:06:50 Post-tra umatic stress disorder 69082053 Active 2024 STEFAN pringle [facility], L.LS[facility]idaCSoraida 5 14:07:02 Nausea and vomiting 19380394 Active 2024 DANNY pringle [facility], LSoraidaLSoraidaCSoraida 5 17:48:20 Problem Notes None recorded. Procedures Surgical History Date Name Laterality Status Provider Name and Address Organization Details Recorded Time 02/27/20 25 plain X-ray of chest completed STEFAN SHELDON [facility], Jose AlbertoLSoraidaCSoraida 03/01/2025 13:58:56 02/27/[address] of abdomen and pelvis completed STEFAN SHELDON [facility], Jose AlbertoLSoraidaCSoraida 03/01/2025 14:04:45 procedure on wrist completed Aria lu [facility], L.LS[facility]idaCS[facility]ida 04/21/2024 15:05:09 Splenectomy completed Aria Man [facility], L.LS[facility]idaCS[facility]ida 04/21/2024 15:05:53 Hand tendon reconstruction completed Aria Man [facility] 04/21/2024 15:06:30 Imaging Results None recorded. Procedure Notes None recorded. Medical Equipment None Reported. Allergies Allergen ID Allergen Name Allergen Category Reaction Reaction Severity Criticality Documentation Date Start Date Code Code System Note Provider Name and Address Organization Details Recorded Time 77556 Zosyn medicatio n respirato ry distress severe high 04/21/2024 75354 RxNorm Aria pringle [facility], Jose AlbertoLRosa Elena 4 15:00:54 Medications [...] MOUTH THREE TIMES DAILY WITH MEALS active 68656dp pt takes up to 10 tabs QD [...] Updated DateTime 5 180.34 cm 25.7 kg/m2 06977.4 g 86 /min 20 /min 98.9 [degF] 118/76 mm[Hg] DANNY CORONA [facility] 5 16:16:26 Date Recorded Body height Body mass index (BMI) Body weight Oxygen saturation Heart rate Systolic And Diastolic Provider Name and Address Organization Details Last Updated DateTime 5 180.34 cm 24.4 kg/m2 08480.6 6 g 98 % 86 /min 114/84 mm[Hg] STEFAN CHUNG [facility] 5 14:14:27 Date Recorded Body height Body temperature Oxygen saturation Heart rate Body mass index (BMI) Body weight Systolic And Diastolic Provider Name and Address Organization Details Last Updated DateTime 4 180.34 cm 98.2 [degF] 95 % 105 /min 25.7 kg/m2 30088 g 162/84 mm[Hg] Delmi Maya [facility] 4 11:55:00 Date Recorded Body height Body mass index (BMI) Body weight Oxygen saturation Heart rate Respiratory rate Body temperature Systolic And Diastolic Provider Name and Address Organization Details Last Updated DateTime 4 180.34 cm 25.8 kg/m2 40796.9 9 g 95 % 103 /min 18 /min 98.6 [degF] 142/90 mm[Hg] MAYKEL HYDE [facility] 4 16:49:26 Date Recorded Body height Body mass index (BMI) Body weight Respiratory rate Body temperature Heart rate Oxygen saturation Systolic And Diastolic Provider Name and Address Organization Details Last Updated DateTime 4 180.34 cm 26 kg/m2 77347.5 8 g 18 /min 98.9 [degF] 110 /min 98 % 110/80 mm[Hg] DANNY SHIY [facility] 4 16:46:31 Social History Question Answer Notes LastModified by [employer] Details LastModified Time Tobacco Smoking Status Current Every Day Smoker MAYKEL pringle [facility] 01/12/2023 09:37:40 What Was The Date Of Your Most Recent Tobacco Screening? 12/14/2024 Information not available 12/14/2024 What Is Your Relationship Status? Domestic Partner Information not available 01/12/2023 Are You Sexually Active? Yes Information not available 01/12/2023 How Much Tobacco Do You Smoke? 1 PPD Information not available 12/14/2024 Sex: Unknown Functional Status Question Answer Note LastModified by [email or web address] ion Details LastModified Time How many times [...] Details Recorded Time Pneumococcal conjugate PCV20, polysaccharide ZRB190 conjugate, adjuvant, PF 4 completed DANNY CORONA null, [facility] 06/29/2024 16:35:19 MMR 8 completed MAYKEL OSMAN null, [facility] 01/12/2023 09:35:17 MMR 2 completed MAYKEL OSMAN null, [facility] 01/12/2023 09:35:17 Tdap 3 completed MAYKEL ROMEROWANDER null, [facility] 01/12/2023 09:35:17 Tdap 4 completed MAYKEL SCHMITZER null, [facility] 01/12/2023 09:35:17 Hep B, unspecified formulation 0 completed MAYKEL SCHMITZER null, [facility] 01/12/2023 09:35:17 Hep B, unspecified formulation 9 completed ANGIEBA HEATHERWANDER null, [facility] 01/12/2023 09:35:17 Hep B, unspecified formulation 9 completed ANGIEBA HEATHERWANDER null, [facility] 01/12/2023 09:35:17 OPV, trivalent 7 completed TREBA NEUSCHWANDER null, [facility] 01/12/2023 09:35:17 OPV, trivalent 7 completed TREBA NEUSCHWANDER null, [facility] 01/12/2023 09:35:17 OPV, trivalent 2 completed TREBA NEUSCHWANDER null, [facility] 01/12/2023 09:35:17 OPV, trivalent 7 completed TREBA NEUSCHWANDER null, [facility] 01/12/2023 09:35:17 Td (adult), 2 Lf tetanus toxoid, preservative free, adsorbed 2 completed TREBA NEUSCHWANDER null, [facility] 01/12/2023 09:35:17 Hep A, ped/adol, 2 dose 2 completed TREBA NEUSCHWANDER null, [facility] 01/12/2023 09:35:18 Hib (PRP-T) 8 completed TREBA NEUSCHWANDER null, [facility] 01/12/2023 09:35:18 DTaP 7 completed TREBA NEUSCHWANDER null, [facility] 01/12/2023 09:35:18 DTaP 7 completed TREBA NEUSCHWANDER null, [facility] 01/12/2023 09:35:18 DTaP 2 completed TREBA NEUSCHWANDER null, [facility] 01/12/2023 09:35:18 DTaP 8 completed TREBA NEUSCHWANDER null, [facility] 01/12/2023 09:35:18 DTaP 7 completed MAYKEL OSMAN [facility], Noreen 01/12/2023 09:35:18 Past Encounters Encounter ID Performer Location Encounter Start Date Encounter Closed Date Diagnosis/Indication Diagnosis SNOMED-CT Code Diagnosis ICD10 Code Diagnosis IMO Codes Diagnosis Note [id number] Sherwin Pedro MD [facility] ([facility]) [address] [place] [phone] 5 01/12/2023 09:27:03 01/12/2023 20:16:03 Pancreatitis 86270962 K85.90 Anxiety 98329912 F41.9 Depressive disorder 3548 9007 F32.A Chronic pain syndrome 37 8121378 G89.4 Harmful pa ttern of use of alcohol 24527023 F10.10 [id number] Sherwin Pedro MD [facility] ([facility]) [address] [place] [phone] 5 02/11/2023 16:02:03 02/11/2023 20:08:41 Harmful pattern of use of alcohol 05382920 F10.10 Anxiety 30217364 F41.9 Depressive disorder 3548 9007 F32.A Heartburn 08280129 R12 [id number] Sherwin Pedro MD [facility] ([facility]) [address] [place] [phone] 5 05/13/2023 14:48:08 05/26/2023 11:19:35 Harmful pattern of use of alcohol 32097864 F10.10 Anxiety 96962988 F41.9 Heartburn 38178781 R12 [id number] Sherwin Pedro MD [facility] ([facility]) [address] [place] [phone] 5 05/26/2023 13:54:26 05/26/2023 17:53:00 Heartburn 44723419 R12 Pain of left eye 4612626 001 15901 H57.12 Chalazion of lower eyelid 398397336 H00.15 [id number] LINDEN VILLARREAL [facility] ([facility]) [address] [place] [id number] 5 06/30/2023 16:07:37 06/30/2023 18:54:05 Sore throat 676129626 J02.9 Negative strep test today. Acute pharyngitis 973829 003 J02.9 Reassured with negative strep test today. Discussed with patient that this is likely viral and will have to run its course. Can take tylenol/ib uprofen as needed for pain and fevers. If worsening condition or no improvemen t in 7-10 days, return for further evaluation . Patient verbalizes understand ing. [id number] Sherwin Pedro MD [facility] ([facility]) [address] [place] [phone] 5 07/06/2023 13:46:59 07/07/2023 21:55:17 Pancreatitis 81558222 K85.90 Generalize d anxiety disorder 31636496 F41.1 [id number] Salvador Weathers DO [facility] ([facility]) [address] [place] [phone] 5 08/17/2023 13:35:41 08/17/2023 16:24:53 Candidiasis of mouth 13878230 B37.0 Discussed use of liquid Nystatin to swish, gargle, then swallow. Pt is instructed to use until no further white patches are visualized in the mouth, then use an additional 2 days to ensure resolution .Nystatin cream prescribed for corners of the lips. [id number] Mundo Luna MD [facility] ([facility]) [address] [place] [phone] 5 08/25/2023 15:03:37 08/25/2023 18:51:03 Swallowing painful 11509865 R13.19 f/u with pcp if sx do not resolve [id number] LUCIA LUNA PA-C [facility] ([facility]) [address] [place] [phone] 5 08/30/2023 16:30:10 08/30/2023 16:58:08 Epidermoid cyst of skin of ear 425198571 L72.0 Chronic sore throat 6954 41546 J31.2 [id number] Sherwin Pedro MD [facility] ([facility]) [address] [place] [id number] 5 09/14/2023 14:53:58 09/14/2023 15:38:16 Anxiety 61439600 F41.9 Essential hypertension 17316370 I10 [id number] Sherwin Pedro MD [facility] ([facility]) [address] [place] [id number] 5 11/18/2023 14:04:50 11/18/2023 15:20:26 Essential hypertension 41673647 I10 Pancreatitis 35006285 K8 5.90 Nausea and vomiting 1693 2000 R11.2 Candidiasis of mouth 797 47050 B37.0 [id number] Sherwin Pedro MD [facility] ([facility]) [address] [place] [address] 5 12/14/2023 13:21:11 12/14/2023 15:51:19 Dyspnea 179239363 R06.00 Anterior c hest wall pain 955449598 R07.89 Altered eben wel function 94500067 R19.4 Erectile dysfunction 860 969921 F52.21 [id number] Sherwin Pedro MD [facility] ([facility]) [address] [place] [id number] 5 01/19/2024 14:20:31 01/19/2024 15:10:45 Abdominal pain 97345958 R10.9 Chronic pancreatitis 235 852998 K86.1 [id number] Sherwin Pedro MD [facility] ([facility]) [address] [place] [id number] 5 02/02/2024 15:14:36 02/02/2024 17:34:27 Harmful pattern of use of alcohol 35260361 F10.10 Essential hypertension 91578664 I10 Anxiety 65826847 F41.9 [id number] Sherwin Pedro MD [facility] ([facility]) [address] [place] [id number] 5 03/15/2024 14:29:57 03/15/2024 15:24:11 Harmful pattern of use of alcohol 76517326 F10.10 Depressive disorder 3548 9007 F32.A Anxiety 87363496 F41.9 Candidiasis of mouth 797 20109 B37.0 Erectile dysfunction 860 140167 F52.21 Dysuria 02301451 R30.0 [id number] Sherwin Pedro MD [facility] ([facility]) [address] [place] [id number] 5 04/12/2024 14:52:03 04/12/2024 16:28:35 Postoperative visit 591331461 Z48.89 Erectile dysfunction 860 295051 F52.21 [id number] KEVIN AMOR SERVICE TECHNICIAN [place] [facility] ([facility]) [address] [place] [phone] 5 04/21/2024 14:51:28 04/21/2024 17:23:56 Cough 19282671 R05.9 Acute uppe r respiratory infection 89622276 J06.9 Covid negative. Discussed use of otc medication s for symptom management .Push oral fluids and rest.If you develop fever, sob, or start feeling worse then return for re-evaluat ion. [id number] COLBY CHENG [facility] ([facility]) [address] [place] [id number] 5 05/06/2024 11:07:44 05/06/2024 12:58:49 Candidiasis of mouth 75677864 B37.0 [id number] Sherwin Pedro MD [facility] ([facility]) [address] [place] [id number] 5 05/17/2024 16:01:03 05/17/2024 18:02:38 Harmful pattern of use of alcohol 06240846 F10.10 Chronic pain syndrome 37 5745460 G89.4 Anxiety 30277958 F41.9 Pain of ri ght knee joint 5038585960 36072 M25.835 [id number] Sherwin Pedro MD [facility] ([facility]) [address] [place] [id number] 5 06/29/2024 16:00:02 06/29/2024 17:50:25 Epigastric pain 62200837 R10.13 [id number] Sherwin Pedro MD [facility] ([facility]) [address] [place] [id number] 5 12/14/2024 15:55:12 12/16/2024 07:47:49 Seizure 90071632 R56.9 79611 Acute pancreatitis 6007 K85.80 61363850 Alcohol withdrawal 26358 0000 F10.939 41639124 [id number] COLBY CHENG [facility] ([facility]) [address] [place] [address] 03/01/2025 13:56:05 03/01/2025 15:29:25 Acute type B viral hepatitis 51462312 B16.9 [id number] Patient education provided to patient from Up-to-date Chronic pancreatitis 235 884483 K86.1 Health Concerns Section Related Observation LastModified by Organization Detai ls LastModified Time None Recorded Concern Status LastModified by Organization Details LastModified Time None Recorded Advance Directives Directive None Recorded Payers Insurance Date Sequence Insurance Name Policy Number Policy Alexander Covered Member ID Alexander Member ID Guarantor Name 01/14/2023 2 *SELF PAY* Sh ea S Girdley 02/28/2025 1 [facility] (MEDICAID HMO) Parker S Girdley [id number] Parker S Girdley 02/28/2025 [facility] (MEDICAID HMO) Parker S Girdley [id number] Parker S Girdley Notes Date Note Type Note Provider Name and Address Organization Details Recorded Time 05/06/2024 text/html Sore ThroatRepor jefferson by PatientHPIFor quality, patient reportsdifficulty swallowingandhoarsenes s. For severity, patient reportsmild. For location, patient reportsbilateral.ROS as noted in the HPI walk in pt.Pt has sores in mouth and throat for 5 days. COLBY CHENG [address] [place] [address], [phone], [facility] 05/06/2024 12:50:00 05/17/2024 text/html Hypertension IM/FMReported [...] and only drinks beer. Sherwin Pedro MD [address] [place] [address], [phone], [facility] 07/19/2024 13:24:48 06/29/2024 text/html Hospital follow up from 06/09/24, epigastric pain Sherwin Pedro MD [address] [place] [address], [phone], [facility] 07/09/2024 11:28:26 12/14/2024 text/html SeizureReported by PatientHPIFor associated symptoms, patient reportstongue biting,postictal fatigue/tiredness,post ictal headache, andpostictal confusionbut reportsno vomitingandno chest pain. For duration, patient reportslength of seizure: 2 minutes. pt stopped drinking alcohol x2 days ago. Pt had a seizure yesterday at 5:05pm. He was seen in ER at [facility].Patient was in the [facility] ER thursday night for flare of pancreatitis. Sherwin Pedro MD [address] [place] [address], [phone], [facility] 12/15/2024 22:55:20 03/01/2025 text/html Abdominal PainRe ported by PatientAbdominal PainFor quality, patient reportscrampingandachi ng. For location, patient reportsruq. For severity, patient reportsmoderate. COLBY CHENG [address] [place] [address], [phone], [facility] 03/01/2025 14:48:57
--- OUTSIDE RECORDS SUMMARY | 2025-07-23 06:12 | XMS_ITS | Clinical Summary ---
Author Organization [facility] Address [address] [facility] Attn: Epic Prelude ADT CARLA SCHULER [address] Care Team Providers Care Polymer Scientist Name Role Phone Mahamed Sales MD Primary Care Provider [phone] Allergies Active Allergy Reactions Criticality Noted Date [...] mouth daily. Active naloxone (NARCAN) 4 mg/spray Jackson, Non-Aerosol EMERGENCY USE ONLY: Administer 1 spray [...] Data STL ABSTRACTION Provider, Abstract 07/04/2025 Refill [facility] G[facility]enter[facility] [address] [place] [address] [place] [phone] Josh Sanchez MD 07/03/2025 12:45 PM EVENT MANAGEMENT CONSULTANT - 07/03/2025 11:59 PM [facility] Hospital Encounter [facility] Pain Management Procedures [place] [address] [place] [phone] Lacie Summers PA Discharge Disposition: Home or Self Care 07/03/2025 12:42 PM EVENT MANAGEMENT CONSULTANT - 07/03/2025 11:59 PM [facility] Hospital Encounter [facility] Pain Management Procedures [place] [address] [place] [phone] Baldo Blas MD Discharge Disposition: Home or Self Care 06/30/2025 Orders Only [facility] Gastroenterology [facility] [address] [place] [address] [place] [phone] Fernando Hooper MD Acute pancreatitis, unspecified complication status, unspecified pancreatitis type (Primary Dx); Pancreatic pseudocyst 06/27/2025 External Device Data STL ABSTRACTION Provider, Abstract 06/27/2025 External Device Data STL ABSTRACTION Provider, Abstract 06/07/2025 12:20 PM EVENT MANAGEMENT CONSULTANT Office Visit [facility] Pain Management [address] [place] [phone] Lacie Summers PA Chronic pain of both knees (Primary Dx); Spondylosis without myelopathy or radiculopathy, lumbar region 05/16/2025 External Device Data STL ABSTRACTION Provider, Abstract 05/16/2025 External Device Data STL ABSTRACTION Provider, Abstract 05/16/2025 External Device Data STL ABSTRACTION Provider, Abstract 05/15/2025 Refill [facility] Gastroenterology - [place] [address] [place] [phone] Josh Sanchez MD 05/08/2025 1:44 PM CDT Anesthesia Event [facility] Endoscopy [address] [place] [phone] Josh Crouch DO Brett, Michael, CRNA 05/08/2025 1:00 PM CDT - 05/08/2025 1:40 PM CDT Surgery [facility]oscopy [address] [place] [phone] John Lynch MD ESOPHAGOGASTRODUODENOSCOPY WITH ENDOSCOPIC ULTRASOUND 05/08/2025 11:59 AM CDT - 05/08/2025 2:45 PM CDT Hospital Encounter [facility] Endoscopy [address] [place] [phone] John Lynch MD Discharge Disposition: Home or [...] PNEUM OCOCCAL CONJUGATE VACCINE 20-VALENT (PCV20), POLYSACCHARIDE [id number] CONJUGATE, ADJUVANT 0.5 ML (PF) IM 06/18/2024 (PROQUAD)(12 MOS-12 YRS)MISHA LES, MUMPS, RUBELLA, AND VARICELLA VIRUS VACCINE. 0.5 ML, SUBCUT 03/03/1992,12/26/1987 (TDVAX)(7 YRS UP) TETANUS AN D DIPHTHERIA TOXOIDS, ADSORBED (2 LF OF TETANUS TOXOID AND 2 LF OF DIPHTHERIA TOXOID), 0.5ML (PF), IM 05/02/2002 Hepatitis B Vaccine, Unspeci fied Formulation 10/17/1999,02/07/1999,01/08/1999 Poliovirus Vaccine Live Oral [facility] 992,03/14/1987,01/20/1987,11/11 Social History Tobacco Use Types Packs/Day [...] on file Legal Sex Male 4:00 AM EVENT MANAGEMENT CONSULTANT Gender Identity Not on file Sexual Orientation Not on file Last Filed Vital Signs Vital Sign Reading Time Taken Comments Blood Pressure 131/80 07/03/2025 1:17 PM EVENT MANAGEMENT CONSULTANT Pulse 95 07/03/2025 1:17 PM EVENT MANAGEMENT CONSULTANT Temperature 36.3 C (97.4 F) 07/03/2025 12:53 PM EVENT MANAGEMENT CONSULTANT Respiratory Rate 16 07/03/2025 1:17 PM EVENT MANAGEMENT CONSULTANT Oxygen Saturation 100% 07/03/2025 1:17 PM EVENT MANAGEMENT CONSULTANT Inhaled Oxygen Concentration - - Weight 76.2 kg (168 lb) 06/07/2025 11:57 AM EVENT MANAGEMENT CONSULTANT Height 180.3 cm (5' 11 ) 06/07/2025 11:57 AM EVENT MANAGEMENT CONSULTANT Body Mass Index 23.43 06/07/2025 11:57 AM EVENT MANAGEMENT CONSULTANT Plan of Treatment Upcoming Encounters Date Type Department Care Team (Late st Contact Info) Description 07/31/2025 1:50 PM EVENT MANAGEMENT CONSULTANT Appointment [facility] Pain Management Procedures [place] [address] [place] [address] Baldo Blas MD [address] [place] [address] [place] [phone] 03/19/2026 10:00 AM CDT Office Visit [facility] Gastroenterology- [place] [address] [phone] Josh Sanchez MD [address] [phone] Health Maintenance Due Date Last Done Comments INFLUENZA VACCINE (#1) 2025 DTAP/TDAP/TD VACCINES (8 - T d or Tdap) 10/16/2032 10/16/2022, 10/26/2013, 05/02/2002, Additional history exists HEPATITIS B VACCINES Completed 10/17/1999, 02/07/1999, 01/08/1999 HPV VACCINES (No Doses Required) Completed Procedures Procedure Name Priority Date/Time Associated Diagnosis Comments XR FLUORO NEEDLE PLACEMENT Routine 07/03 1:11 PM EVENT MANAGEMENT CONSULTANT UPPER ENDOSCOPIC ULTRASOUND REPORT 05/08/2025 2:21 PM CDT DE ESOPHAGOGASTRODUODENOSCOP Y US SCOPE W/ADJ STRXRS 05/08/2025 1:00 PM CDT Z90.411 (ICD-10-CM) - V88.12 (ICD-9-CM) - History of partial pancreatectomy, pancreatic pseudocyst, dilated pancreatic duct, hx of pancreatitis Case Notes EUS PCP Mahamed Sanchez patient Z90.411 (ICD-10-CM) - V88.12 (ICD-9-CM) - History of partial pancreatectomy, pancreatic pseudocyst, dilated pancreatic duct, hx of pancreatitis [facility] Medicaid from Last 3 Months Results * XR FLUORO NEEDLE PLACEMENT (07/03/2025 1:11 PM EVENT MANAGEMENT CONSULTANT) Narrative 07/03/2025 1:14 PM EVENT MANAGEMENT CONSULTANT Order information only. Exam was auto-finalized. [facility] ORDERABLES Final Result * UPPER ENDOSCOPIC ULTRASOUND REPORT (05/08/2025 2:21 PM CDT) Narrative Procedure Note John Lynch MD - 05/08/2025 2:21 PM CDT [facility] GI Patient Name: Elena Hernandez Procedure Date: [...] satisfactory condition to undergo the procedure. - [place] Protocol: - Pre-procedure Verification: Prior to the [...] Scattered hyperechoic foci with shadowing Based on [place] criteria findings indeterminant for chronic pancreatitis on [...] Time Scope In: Scope Out: [address] [place], [place] John Lynch MD GI PROCEDURE ORDERABL ES Final Result from Last 3 Months Insurance MEDICAID [facility] DUAL COMPLETE [facility] [id number] RX INFOCROSSING Medicaid Advance Directives For more information, please contact: [phone] * Full Code (Latest Code Status on [...] 1:02 PM 06/24/2024 12:39 PM Care Teams Polymer Scientist Relationship Specialty Start Date End Date Mahamed Sales MD [address] [place] [phone] PCP - General Family Practice 06/17/24
--- OUTSIDE RECORDS SUMMARY | 2025-07-23 06:12 | XMS_ITS | Clinical Summary ---
Author Organization [facility] Address [address] [place] [address] Phone Care Team Providers Care Tool And Die Engineer Name Role Phone Unavailable Primary Care Provider [...]
[2025-07-23 06:16] VITALS: BP 126/89; PULSE 91; RESP 17; O2SAT 100
[2025-07-23 06:19] LABS: Hematocrit 42.0 % (37-53); Hemoglobin 15.60 g/dL (11.27-16.99); Mean Corpuscular HGB Conc 37.1 g/dL (30-55); Mean Corpuscular Hemoglobin 33.6 pg (27-33); Mean Corpuscular Volume 90.5 fl (82-101); Nucleated Red Blood Cells % 0 %; Platelet Count 298 10^3/cmm (157-399); Red Blood Count 4.64 10^6/uL (3.85-5.65); White Blood Count 8.10 10^3/uL (3.29-11.43)
[2025-07-23 06:32] VITALS: BP 130/86; PULSE 81; RESP 18; O2SAT 100
[2025-07-23 06:38] LABS: Troponin(5th) Baseline < 6 ng/L (0-15)
[2025-07-23 06:39] LABS: Alanine Aminotransferase 398 U/L (0-41); Albumin Level 4.1 g/dL (3.5-5.2); Alcohol Level 75 mg/dL (0-10); Blood Urea Nitrogen 5 mg/dL (6-20); Calcium 9.9 mg/dL (8.5-10.5); Carbon Dioxide 27 mmol/L (22-29); Chloride 97 mmol/L (98-107); Globulin 2.8 g/dL (1.3-4.6); Glucose 124 mg/dL (65-115); Lipase 23 U/L (13-60); Osmolality Calculated 283 mOsm/kg (285-295); Sodium 137 mmol/L (136-145); Total Protein 6.9 g/dL (6.6-8.7)
[2025-07-23 06:40] LABS: Anion Gap 17.6 (5-19); Aspartate Amino Transferase 254 U/L (0-40); Potassium 4.6 mmol/L (3.5-5.1)
[2025-07-23 06:43] LABS: Ammonia 62 umol/L (16-60)
[2025-07-23 06:54] LABS: Alkaline Phosphatase 2478 U/L (40-130)
--- NOTE | 2025-07-23 07:11 | ECG_ITS ---
[facility] Date: 2025-07-23 Pat Name: Elena Hernandez Department: Room: Gender: Male Plating Stripper: : 1985 Requested By: Isael Flores Order Number: [id number] Reading MD: Measurements Intervals [place] Rate: 84 P: 69 CT: 141 QRS: 81 QRSD: 101 T: 60 QT: 368 QTc: 435 Interpretive Statements SINUS RHYTHM [email or web address]
--- NOTE | 2025-07-23 07:31 | USR_ITS ---
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 Limited exam focused on the right upper quadrant. COMPARISON: 1. US abdomen limited [id number] 06/26/2025 2:41 PM 2. MR MRCP [id number] 06/27/2025 12:32 PM 3. US abdomen limited [id number] 06/26/2025 2:[address] abdomen pelvis w con* [id number] 04/14/2025 11:09 AM FINDINGS: Liver: Normal. No masses. Liver measures 16.6 cm in length. Gallbladder: See Portal venous finding. Biliary ducts: Normal. No stones. No dilation. Common bile duct measures 0.4 cm in diameter. Pancreas: Redemonstrated cyst in the pancreatic head measuring 4.5 x 5.0 x 5.6 cm, previously 3.6 x 3.2 x 3.1 cm on 06/27/2025 and 5.3 x 5.0 x 5.4 cm on 04/14/2025. Right kidney: Normal. No mass. No hydronephrosis. Right kidney measures 10.5 cm in length. Aorta: Distal aorta measures 1.6 cm in diameter. Inferior vena cava: IVC measures 10.6 cm in diameter. Portal venous: The main portal vein measures 0.9 cm in diameter. Hepatopetal flow in the main portal vein. Small layering debris within the gallbladder lumen. No cholelithiasis. Borderline gallbladder wall thickening measuring 0.4 cm. US/US gall bladder [id number] IMPRESSION: 1. No acute findings. 2. Pancreatic head cyst similar to prior examinations, likely a pseudocyst from prior pancreatitis. 3. Borderline gallbladder wall thickening is nonspecific. No other sonographic evidence of acute cholecystitis.
[2025-07-23 07:46] LABS: INR 0.80 (0.8-1.2); Partial Thromboplastin Time 25.5 SECONDS (23.9-36.7); Prothrombin Time 11.60 SECONDS (12.1-14.9)
[2025-07-23 08:30] VITALS: BP 164/109; PULSE 82; O2SAT 99
[2025-07-23] MEDS: ondansetron 2 mg/ML SDV 2 mL 4 MG IVP (08:53)
[2025-07-23 10:38] VITALS: BP 138/98; PULSE 89; O2SAT 100
== END 2025-07-23 10:41 | disposition home or self-care (01) ==
PROVIDERS: Emergency Provider Family Medicine; PCP Family Medicine
DX: K29.20 Alcoholic gastritis without bleeding (principal); F10.229 Alcohol dependence with intoxication, unspecified; Y90.3 Blood alcohol level of 60-79 mg/100 ml; E80.6 Other disorders of bilirubin metabolism; R74.01 Elevation of levels of liver transaminase levels; Z79.82 Long term (current) use of aspirin; F17.210 Nicotine dependence, cigarettes, uncomplicated
CPT/HCPCS: 36415; 71045; 76705; 80053; 80307; 82140; 83690; 84484; 85025; 85610; 85730; 93005; 96374; 96375; 99285; J1885; J2405; J7030; J9999

== ENCOUNTER 2025-07-29 06:38 | Emergency (ER) | payer MEDICARE, MEDICAID, SELFPAY ==
[2024-10-17 10:25] VITALS: BP 134/102; BMI 27.0
[2025-07-29] VITALS (7 sets, daily range): BP systolic 112–138; BP diastolic 72–89; PULSE 79–99; RESP 16–17; TEMP 36.8; O2SAT 96–100; BMI 23.0
--- OUTSIDE RECORDS SUMMARY | 2025-07-29 06:41 | XMS_ITS | Clinical Summary ---
Author Organization [facility] Address [address] [place] [address] Phone Care Team Providers Care Claims Customer Service Representative Name Role Phone Unavailable Primary Care Provider [...]
--- OUTSIDE RECORDS SUMMARY | 2025-07-29 06:41 | XMS_ITS | Data Portability ---
Author Organization CARLA Mcclellan [facility] Address [address] [address] Care Team Providers Care Neuropsychiatric Aide Name Role Phone SHERWIN PEDRO Primary Care Provider [phone] Assessment Encounter Date Assessment Date Assessment LastModified [...] Organization Details Last Modified Time Details Appointments OFFICE VISIT 20 2024 03:00P M NOREEN CHANTELLE, CORE JAVA ENGINEER Not available Not available Not available Lab CMP, serum or plasma 2024 025 [facility], [address], [address] [place], [address], 03/02/2025 05:12:34 Referral gastroent erologist referral 2024 025 [email or web address] [facility] , [address], [place], [address], 03/27/2025 10:54:10 Procedures None recorded. Surgeries None recorded. Imaging None recorded. Medication Orders nystatin 100,000 unit/mL oral suspensio n 2023 024 [facility], [address] [place], [address], 06/29/2024 18:03:11 Patient TargetsNo targets recorded. Patient Instructions Encounter Date Encounter Id Patient Instructions Last Modified By Organization Details Last Modified Time 05/06/2024 [id number] Call or return for questions or concerns. Not available 05/06/2024 12:48:23 03/01/2025 [id number] Call or return for questions or concerns. 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 Financial Planning Adviser Referral for Acute type B viral hepatitis Referring Physician: Noreen Lockhart, Family Medicine, Encounter Date: 03/01/2025 Results Created Date Observation Date Name Description Value Unit Range Abnormal Flag Note LastModifiedBy Organization Detail LastModifiedTime 04/21/2004/21/2024 SARS CoV 2 RNA, QL, nasop haryn x COVID negati ve Not Available [facility] ([facility]) [address] [place], [address], 04/21/2024 15:24:07 03/01/20 25 03/02/2025 COMPR EHENS MARIELY METAB OLIC PANEL glucose 102 mg/dL 65-99 high Fasti ng refer ence inter caridad For someo ne witho ut known diabe kirt, a gluco se value betwe en 100 and 125 mg/dL is consi stent with predi abete s and shoul d be confi rmed with a follo w-up test. Not Available [address] [address] [place], [address], 03/02/2025 05:12:34 03/01/2003/02/2025 COMPR EHENS MARIELY METAB OLIC PANEL urea nitrogen (BUN) 8 mg/dL 7-25 normal Not Available [facility] [address], [address], 03/02/2025 05:12:34 03/01/2003/02/2025 COMPR EHENS MARIELY METAB OLIC PANEL creatinine 0.82 mg/dL 0.60-1 .26 normal Not Available [address] [address] [place], [address], 03/02/2025 05:12:34 03/01/2003/02/2025 COMPR EHENS MARIELY METAB OLIC PANEL eGFR 115 mL/mi n/1.7 3m2 > or = 60 normal Not Available [address], [address], 03/02/2025 05:12:34 03/01/2003/02/2025 COMPR EHENS MARIELY METAB OLIC PANEL BUN/creatini ne ratio SEE NOTE: (calc ) 6-22 Not Repor jefferson: BUN and Creat inine are withi n refer ence range . Not Available [facility] [address] [address] [place], [address], 03/02/2025 05:12:34 03/01/2003/02/2025 COMPR EHENS MARIELY METAB OLIC PANEL sodium 134 mmol/ L 135-14 6 low Not Available [facility] [address] [address] [place], [address], 03/02/2025 05:12:34 03/01/2003/02/2025 COMPR EHENS MARIELY METAB OLIC PANEL potassium 4.2 mmol/ L 3.5-5. 3 normal Not Available [address], [address], 03/02/2025 05:12:34 03/01/20 25 03/02/2025 COMPR EHENS MARIELY METAB OLIC PANEL chloride 100 mmol/ L 98-110 normal Not Available [address], [address], 03/02/2025 05:12:34 03/01/20 25 03/02/2025 COMPR EHENS MARIELY METAB OLIC PANEL carbon dioxide 26 mmol/ L 20-32 normal Not Available [address], [address], 03/02/2025 05:12:34 03/01/20 25 03/02/2025 COMPR EHENS MARIELY METAB OLIC PANEL calcium 9.5 mg/dL 8.6-10 .3 normal Not Available [address], [address], 03/02/2025 05:12:34 03/01/20 25 03/02/2025 COMPR EHENS MARIELY METAB OLIC PANEL protein, total 6.8 g/dL 6.1-8. 1 normal Not Available [address], [address], 03/02/2025 05:12:34 03/01/20 25 03/02/2025 COMPR EHENS MARIELY METAB OLIC PANEL albumin 4.1 g/dL 3.6-5. 1 normal Not Available [address], [address], 03/02/2025 05:12:34 03/01/20 25 03/02/2025 COMPR EHENS MARIELY METAB OLIC PANEL globulin 2.7 g/dL_ (calc ) 1.9-3. 7 normal Not Available [address], [place], [address], 03/02/2025 05:12:34 03/01/2003/02/2025 COMPR EHENS MARIELY METAB OLIC PANEL albumin/glob ulin ratio 1.5 (calc ) 1.0-2. 5 normal Not Available [address], [address], 03/02/2025 05:12:34 03/01/20 25 03/02/2025 COMPR EHENS MARIELY METAB OLIC PANEL bilirubin, total 3.3 mg/dL 0.2-1. 2 high Not Available [address], [address], 03/02/2025 05:12:34 03/01/20 25 03/02/2025 COMPR EHENS MARIELY METAB OLIC PANEL alkaline phosphatase 454 U/L 36-130 high Not Available [facility] [employer] [address], [address], 03/02/2025 05:12:34 03/01/20 25 03/02/2025 COMPR EHENS MARIELY METAB OLIC PANEL AST 127 U/L 10-40 high Not Available [address], [address], 03/02/2025 05:12:34 03/01/20 25 03/02/2025 COMPR EHENS MARIELY METAB OLIC PANEL ALT 167 U/L 9-46 high Not Available [address], [address], 03/02/2025 05:12:34 Result Notes None recorded. Problems Name Problem SNOMED Code Status Onset Date Resolution Date Notes Provider Name and Address Organization Details Recorded Time Concussi on Completed 201612/14/2024 Concussi on; Hospital ized; Date: 02/04/20 17; 08/29/19 3:27PM by Danny Corona RN, Office Visit; Promoted ; acuity set as *; DANNY pringle, [facility] 16:07:53 Pancreat itis 00410838 Completed 202212/14/2024 DANNY pringle, [facility] 16:08:33 Anxiety 34721700 Active 2022 DANNY SHIY [facility], [facility] 16:07:41 Depressi ve disorder 01631194 Active 2022 DANNY HAMBY [facility], [facility] 16:07:56 Chronic pain syndrome 448678212 Active 2022 DANNY CORONA [facility] 16:07:47 Harmful pattern of use of alcohol 12621534 Completed 202212/14/2024 DANNYSHARRI SHIY [facility], [facility] 16:08:24 Erectile dysfunct ion 909876236 Active 2023 DANNYSHARRI SIHY [facility] 16:08:16 Seizure 54176523 Active 2024 DANNY CORONA [facility] 16:18:45 Acute pancreat itis 488377717 Active 2024 DANNY CORONA [facility], [facility] 16:19:42 Viral hepatiti s B without hepatic coma 148279327 [facility] 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 5 14:06:17 Mino cook user 094019906 Active 2024 [facility] 5 14:06:30 Alcohol intoxica tion 85649138 Active 2024 [facility] 5 14:06:50 Post-tra umatic stress disorder 00148677 Active 2024 [facility] 5 14:07:02 Nausea and vomiting 58281864 Active 2024 DANNY CORONA yary [facility] 17:48:20 Problem Notes None recorded. Procedures Surgical History Date Name Laterality Status Provider Name and Address Organization Details Recorded Time 02/27/20 25 plain X-ray of chest completed STEFAN CHUNG [facility] 03/01/2025 13:58:56 02/27/20 CT of abdomen and pelvis completed STEFAN CHUNG [facility] 03/01/2025 14:04:45 procedure on wrist completed Aria lu [facility] 04/21/2024 15:05:09 Splenectomy completed Aria Man [facility] 04/21/2024 15:05:53 Hand tendon reconstruction completed Aria Man [facility] 04/21/2024 15:06:30 Imaging Results None recorded. Procedure Notes None recorded. Medical Equipment None Reported. Allergies Allergen ID Allergen Name Allergen Category Reaction Reaction Severity Criticality Documentation Date Start Date Code Code System Note Provider Name and Address Organization Details Recorded Time 98008 Zosyn medicatio n respirato ry distress severe high 04/21/2024 18488 RxNorm Aria pringle [facility] 4 15:00:54 81764 acamprosa te medicatio n Not available Not available Not available 07/24/2025 50269 RxNorm unrec ogniz ed react ion (text : Physi armando aggre ssion (find ing), code: 96216 4009) (from exter [facility] e) Not Available brennan - External Data Service - prod 5 09:29:46 38124 piperacil jose / tazobacta m medicatio n anaphylax is Not available [facility] 07/24/20252023 20887 RxNorm Not Available brennan - External Data Service - prod 5 09:29:59 Medications Name Sig Start Date Stop Date [...] completed Recorded 08/29/19 23 3:27PM by Danny A. Cj, RN, Office Visit; Refill Quantity : 0; [...] MOUTH THREE TIMES DAILY WITH MEALS active 04841rz pt takes up to 10 tabs QD [...] Updated DateTime 5 180.34 cm 25.7 kg/m2 60784.4 g 86 /min 20 /min 98.9 [degF] 118/76 mm[Hg] DANNY CORONA [facility] 5 16:16:26 Date Recorded Body height Body mass index (BMI) Body weight Oxygen saturation Heart rate Systolic And Diastolic Provider Name and Address Organization Details Last Updated DateTime 5 180.34 cm 24.4 kg/m2 36874.6 6 g 98 % 86 /min 114/84 mm[Hg] STEFAN CHUNG [facility] 5 14:14:27 Date Recorded Body height Body temperature Oxygen saturation Heart rate Body mass index (BMI) Body weight Systolic And Diastolic Provider Name and Address Organization Details Last Updated DateTime 4 180.34 cm 98.2 [degF] 95 % 105 /min 25.7 kg/m2 59526 g 162/84 mm[Hg] Delmi Maya [facility] 4 11:55:00 Date Recorded Body height Body mass index (BMI) Body weight Oxygen saturation Heart rate Respiratory rate Body temperature Systolic And Diastolic Provider Name and Address Organization Details Last Updated DateTime 4 180.34 cm 25.8 kg/m2 86390.9 9 g 95 % 103 /min 18 /min 98.6 [degF] 142/90 mm[Hg] MAYKEL HYDE [facility] 4 16:49:26 Date Recorded Body height Body mass index (BMI) Body weight Respiratory rate Body temperature Heart rate Oxygen saturation Systolic And Diastolic Provider Name and Address Organization Details Last Updated DateTime 4 180.34 cm 26 kg/m2 97745.5 8 g 18 /min 98.9 [degF] 110 /min 98 % 110/80 mm[Hg] DANNY CORONA [facility] 4 16:46:31 Social History Question Answer Notes LastModified by Organizat ion Details LastModified Time Tobacco Smoking Status Current Every Day Smoker MAYKEL pringle [facility] 01/12/2023 09:37:40 What Was The Date Of Your Most Recent Tobacco Screening? 12/14/2024 Information not available 12/14/2024 What Is Your Relationship Status? Domestic Partner Information not available 01/12/2023 Are You Sexually Active? Yes Information not available 01/12/2023 How Much Tobacco Do You Smoke? 1 PPD Information not available 12/14/2024 Sex: Unknown Functional Status Question Answer Note LastModified by Organizat ion Details LastModified Time How many times per week do you consume alcohol? 5-7 times per week Information not available 07/06/2023 Do you use any illicit or recreational drugs? Yes marajuana Information not available 01/12/2023 What is your [...] Details Recorded Time Pneumococcal conjugate PCV20, polysaccharide [id number] conjugate, adjuvant, PF 4 completed DANNY pringle [facility] 06/29/2024 16:35:19 MMR 8 completed MAYKEL pringle [facility] 01/12/2023 09:35:17 MMR 2 completed MAYKEL pringle [facility] 01/12/2023 09:35:17 Tdap 3 completed MAYKEL pringle [facility] 01/12/2023 09:35:17 Tdap 4 completed MAYKEL pringle [facility] 01/12/2023 09:35:17 Hep B, unspecified formulation 0 completed TREBA NEUSCHWANDER null, [facility] 01/12/2023 09:35:17 Hep B, unspecified formulation 9 completed TREBA NEUSCHWANDER null, [facility] 01/12/2023 09:35:17 Hep B, unspecified formulation 9 completed TREBA NEUSCHWANDER null, [facility] 01/12/2023 09:35:17 OPV, trivalent 7 completed TREBA NEUSCHWANDER null, [facility] 01/12/2023 09:35:17 OPV, trivalent 7 completed TREBA NEUSCHWANDER null, [facility] 01/12/2023 09:35:17 OPV, trivalent 2 completed TREBA NEUSCHWANDER null, [facility] 01/12/2023 09:35:17 OPV, trivalent 7 completed TREBA NEUSCHWANDER null, [facility] 01/12/2023 09:35:17 Td (adult), 2 Lf tetanus toxoid, preservative free, adsorbed 2 completed TREBA NEUSCHWANDER null, [facility] 01/12/2023 09:35:17 Hep A, ped/adol, 2 dose 2 completed TREBA NEUSCHWANDER null, [facility] 01/12/2023 09:35:18 Hib (PRP-T) 8 completed TREBA NEUSCHWANDER null, [facility] 01/12/2023 09:35:18 DTaP 7 completed TREBA NEUSCHWANDER null, [facility] 01/12/2023 09:35:18 DTaP 7 completed TREBA NEUSCHWANDER null, [facility] 01/12/2023 09:35:18 DTaP 2 completed TREBA NEUSCHWANDER null, [facility] 01/12/2023 09:35:18 DTaP 8 completed TREBA NEUSCHWANDER null, [facility] 01/12/2023 09:35:18 DTaP 7 completed TREBA NEUSCHWANDER null, [facility] 01/12/2023 09:35:18 Past Encounters Encounter ID Performer Location Encounter Start Date Encounter Closed Date Diagnosis/Indication Diagnosis SNOMED-CT Code Diagnosis ICD10 Code Diagnosis IMO Codes Diagnosis Note [id number] Sherwin Pedro MD [facility] ([facility]) [address] [place] [id number] 5 01/12/2023 09:27:03 01/12/2023 20:16:03 Pancreatitis 10371065 K85.90 Anxiety 77828614 F41.9 Depressive disorder 3548 9007 F32.A Chronic pain syndrome 37 4586447 G89.4 Harmful pa ttern of use of alcohol 53365009 F10.10 [id number] Sherwin Pedro MD [facility] ([facility]) [address] [place] [id number] 5 02/11/2023 16:02:03 02/11/2023 20:08:41 Harmful pattern of use of alcohol 60602775 F10.10 Anxiety 17198576 F41.9 Depressive disorder 3548 9007 F32.A Heartburn 41517420 R12 [id number] Sherwin Pedro MD [facility] ([facility]) [address] [place] [phone] 5 05/13/2023 14:48:08 05/26/2023 11:19:35 Harmful pattern of use of alcohol 14407828 F10.10 Anxiety 19516889 F41.9 Heartburn 60285679 R12 [id number] Sherwin Pedro MD [facility] ([facility]) [address] [place] [id number] 5 05/26/2023 13:54:26 05/26/2023 17:53:00 Heartburn 37640312 R12 Pain of left eye 1843268 001 38653 H57.12 Chalazion of lower eyelid 802269853 H00.15 [id number] COLBY VILLARREAL-Guevara [facility] ([facility]) [address] [place] [id number] 5 06/30/2023 16:07:37 06/30/2023 18:54:05 Sore throat 360519938 J02.9 Negative strep test today. Acute pharyngitis 684395 003 J02.9 Reassured with negative strep test today. Discussed with patient that this is likely viral and will have to run its course. Can take tylenol/ib uprofen as needed for pain and fevers. If worsening condition or no improvemen t in 7-10 days, return for further evaluation . Patient verbalizes understand ing. [id number] Sherwin Pedro MD [facility] ([facility]) [address] [place] [id number] 5 07/06/2023 13:46:59 07/07/2023 21:55:17 Pancreatitis 24287887 K85.90 Generalize d anxiety disorder 57391040 F41.1 [id number] Salvador Weathers DO [facility] ([facility]) [address] [place] [id number] 5 08/17/2023 13:35:41 08/17/2023 16:24:53 Candidiasis of mouth 40937789 B37.0 Discussed use of liquid Nystatin to swish, gargle, then swallow. Pt is instructed to use until no further white patches are visualized in the mouth, then use an additional 2 days to ensure resolution .Nystatin cream prescribed for corners of the lips. [id number] Mundo Luna MD [facility] ([facility]) [address] [place], [place] [phone] 5 08/25/2023 15:03:37 08/25/2023 18:51:03 Swallowing painful 50990256 R13.19 f/u with pcp if sx do not resolve [id number] LUCIA LUNA PA-C [facility] ([facility]) [address] [place] [id number] 5 08/30/2023 16:30:10 08/30/2023 16:58:08 Epidermoid cyst of skin of ear 202159141 L72.0 Chronic sore throat 2754 96758 J31.2 [id number] Sherwin Pedro MD [facility] ([facility]) [address] [place], [place] [address] 09/14/2023 14:53:58 09/14/2023 15:38:16 Anxiety 62776066 F41.9 Essential hypertension 02163229 I10 [id number] Sherwin Pedro MD [facility] ([facility]) [address] [place] [id number] 5 11/18/2023 14:04:50 11/18/2023 15:20:26 Essential hypertension 56800422 I10 Pancreatitis 88724136 K8 5.90 Nausea and vomiting 1693 2000 R11.2 Candidiasis of mouth 797 90879 B37.0 [id number] Sherwin Pedro MD [facility] ([facility]) [address] [place] [id number] 5 12/14/2023 13:21:11 12/14/2023 15:51:19 Dyspnea 763652844 R06.00 Anterior c hest wall pain 498700257 R07.89 Altered eben wel function 39753738 R19.4 Erectile dysfunction 860 913132 F52.21 [id number] Sherwin Pedro MD [facility] ([facility]) [address] [place] [id number] 5 01/19/2024 14:20:31 01/19/2024 15:10:45 Abdominal pain 74445136 R10.9 Chronic pancreatitis 235 705539 K86.1 [id number] Sherwin Pedro MD [facility] ([facility]) [address] [place] [id number] 5 02/02/2024 15:14:36 02/02/2024 17:34:27 Harmful pattern of use of alcohol 53423357 F10.10 Essential hypertension 46631160 I10 Anxiety 50411833 F41.9 [id number] Sherwin Pedro MD [facility] ([facility]) [address] [place] [id number] 5 03/15/2024 14:29:57 03/15/2024 15:24:11 Harmful pattern of use of alcohol 44161693 F10.10 Depressive disorder 3548 9007 F32.A Anxiety 60700864 F41.9 Candidiasis of mouth 797 80418 B37.0 Erectile dysfunction 860 145307 F52.21 Dysuria 19350417 R30.0 [id number] Sherwin Pedro MD [facility] ([facility]) [address] [place] [id number] 5 04/12/2024 14:52:03 04/12/2024 16:28:35 Postoperative visit 350850817 Z48.89 Erectile dysfunction 860 186286 F52.21 [id number] COLBY COUCH [facility] ([facility]) [address] [place] [id number] 5 04/21/2024 14:51:28 04/21/2024 17:23:56 Cough 03483320 R05.9 Acute uppe r respiratory infection 21842119 J06.9 Covid negative. Discussed use of otc medication s for symptom management .Push oral fluids and rest.If you develop fever, sob, or start feeling worse then return for re-evaluat ion. [id number] COLBY CHENG [facility] ([facility]) [address] [place] [id number] 5 05/06/2024 11:07:44 05/06/2024 12:58:49 Candidiasis of mouth 13463016 B37.0 [id number] Sherwin Pedro MD [facility] ([facility]) [address] [place] [id number] 5 05/17/2024 16:01:03 05/17/2024 18:02:38 Harmful pattern of use of alcohol 80632508 F10.10 Chronic pain syndrome 37 0258795 G89.4 Anxiety 39014424 F41.9 Pain of ri ght knee joint 8314853467 54431 M25.752 [id number] Sherwin Pedro MD [facility] ([facility]) [address] [place] [id number] 5 06/29/2024 16:00:02 06/29/2024 17:50:25 Epigastric pain 41753782 R10.13 [id number] Sherwin Pedro MD [facility] ([facility]) [address] [place] [address] [id number] 5 12/14/2024 15:55:12 12/16/2024 07:47:49 Seizure 35005922 R56.9 80801 Acute pancreatitis 71333 6007 K85.80 66077749 Alcohol withdrawal 05937 0000 F10.939 06636986 [id number] COLBY CHENG [facility] ([facility]) [address] [place] [address] [id number] 5 03/01/2025 13:56:05 03/01/2025 15:29:25 Acute type B viral hepatitis 35292369 B16.9 661612 Patient education provided to patient from Up-to-date Chronic pancreatitis 235 686926 K86.1 Health Concerns Section Related Observation LastModified by Organization Detai ls LastModified Time None Recorded Concern Status LastModified by Organization Details LastModified Time None Recorded Advance Directives Directive None Recorded Payers Insurance Date Sequence Insurance Name Policy Number Policy Alexander Covered Member ID Alexander Member ID Guarantor Name 01/14/2023 2 *SELF PAY* Sh ea S Girdley 02/28/2025 1 [facility] (MEDICAID HMO) Parker S Girdley [id number] Parker S Girdley 02/28/2025 [facility] (MEDICAID HMO) Parker S Girdley [id number] Parker S Girdley Notes Date Note Type Note Provider Name and Address Organization Details Recorded Time 05/06/2024 text/html Sore ThroatRepor jefferson by PatientHPIFor quality, patient reportsdifficulty swallowingandhoarsenes s. For severity, patient reportsmild. For location, patient reportsbilateral.ROS as noted in the HPI walk in pt.Pt has sores in mouth and throat for 5 days. NOREEN LOCKHART, [address] [place], [address], [facility] 05/06/2024 12:50:00 05/17/2024 text/html Hypertension IM/FMReported by [...] and only drinks beer. Sherwin Pedro MD [address] [place] [address], [phone], [facility] 07/19/2024 13:24:48 06/29/2024 text/html Hospital follow up from 06/09/24, epigastric pain Sherwin Pedro MD [address] [place] [address], [phone], [facility] 07/09/2024 11:28:26 12/14/2024 text/html SeizureReported by PatientHPIFor associated symptoms, patient reportstongue biting,postictal fatigue/tiredness,post ictal headache, andpostictal confusionbut reportsno vomitingandno chest pain. For duration, patient reportslength of seizure: 2 minutes. pt stopped drinking alcohol x2 days ago. Pt had a seizure yesterday at 5:05pm. He was seen in ER at [facility].Patient was in the [place] ER thursday night for flare of pancreatitis. Sherwin Pedro MD [address] [place], [address], [facility], Noreen 12/15/2024 22:55:20 03/01/2025 text/html Abdominal PainRe ported by PatientAbdominal PainFor quality, patient reportscrampingandachi ng. For location, patient reportsruq. For severity, patient reportsmoderate. COLBY CHENG [address] [place], [address], [facility], Noreen 03/01/2025 14:48:57
--- OUTSIDE RECORDS SUMMARY | 2025-07-29 06:41 | XMS_ITS | Clinical Summary ---
Author Organization [facility] Address [address] Attn: Epic Prelude ADT CARLA SCHULER [phone] Care Team Providers Care Clinical Law Professor Name Role Phone Mahamed Sales MD Primary Care Provider [phone] Allergies Active Allergy Reactions Criticality Noted Date [...] mouth daily. Active naloxone (NARCAN) 4 mg/spray [place], Non-Aerosol EMERGENCY USE ONLY: Administer 1 spray [...] Data STL ABSTRACTION Provider, Abstract 07/04/2025 Refill [facility] G[facility]enter[facility] [address] [place] [address] [place] [phone] Josh Sanchez MD 07/03/2025 12:45 PM LEGAL INVESTIGATOR - 07/03/2025 11:[address] [facility] Hospital Encounter [facility] Pain Management Procedures [place] [address] [place] [phone] Lacie Summers PA Discharge Disposition: Home or Self Care 07/03/2025 12:42 PM LEGAL INVESTIGATOR - 07/03/2025 11:[address] [facility] Hospital Encounter [facility] Pain Management Procedures [place] [address] [place] [phone] Baldo Blas MD Discharge Disposition: Home or Self Care 06/30/2025 Orders Only [facility] Gastroenterology [facility] [address] [place] [address] [place] [phone] Fernando Hooper MD Acute pancreatitis, unspecified complication status, unspecified pancreatitis type (Primary Dx); Pancreatic pseudocyst 06/27/2025 External Device Data STL ABSTRACTION Provider, Abstract 06/27/2025 External Device Data STL ABSTRACTION Provider, Abstract 06/07/2025 12:20 PM LEGAL INVESTIGATOR Office Visit [facility] [address] [address] [place] [phone] Lacie Summers PA Chronic pain of both knees (Primary Dx); Spondylosis without myelopathy or radiculopathy, lumbar region 05/16/2025 External Device Data STL ABSTRACTION Provider, Abstract 05/16/2025 External Device Data STL ABSTRACTION Provider, Abstract 05/16/2025 External Device Data STL ABSTRACTION Provider, Abstract 05/15/2025 Refill [facility] Gastroenterology - [place] [address] [place] [phone] Josh Sanchez MD 05/08/2025 1:44 PM CDT Anesthesia Event [facility] [address] [place] [phone] Josh Crouch DO Brett, Michael, CRNA 05/08/2025 1:00 PM CDT - 05/08/2025 1:40 PM CDT Surgery [facility] [address] [place] [phone] John Lynch MD ESOPHAGOGASTRODUODENOSCOPY WITH ENDOSCOPIC ULTRASOUND 05/08/2025 11:59 AM CDT - 05/08/2025 2:45 PM CDT Hospital Encounter [facility] [address] [place] [phone] John Lynch MD Discharge Disposition: Home or [...] PNEUM OCOCCAL CONJUGATE VACCINE 20-VALENT (PCV20), POLYSACCHARIDE [id number] CONJUGATE, ADJUVANT 0.5 ML (PF) IM 06/18/2024 (PROQUAD)(12 MOS-12 YRS)MISHA LES, MUMPS, RUBELLA, AND VARICELLA VIRUS VACCINE. 0.5 ML, SUBCUT 03/03/1992,12/26/1987 (TDVAX)(7 YRS UP) TETANUS AN D DIPHTHERIA TOXOIDS, ADSORBED (2 LF OF TETANUS TOXOID AND 2 LF OF DIPHTHERIA TOXOID), 0.5ML (PF), IM 05/02/2002 Hepatitis B Vaccine, Unspeci fied Formulation 10/17/1999,02/07/1999,01/08/1999 Poliovirus Vaccine Live Oral [facility] 992,03/14/1987,01/20/1987,11/11 Social History Tobacco Use Types Packs/Day [...] on file Legal Sex Male 4:00 AM LEGAL INVESTIGATOR Gender Identity Not on file Sexual Orientation Not on file Last Filed Vital Signs Vital Sign Reading Time Taken Comments Blood Pressure 131/80 07/03/2025 1:17 PM LEGAL INVESTIGATOR Pulse 95 07/03/2025 1:17 PM LEGAL INVESTIGATOR Temperature 36.3 C (97.4 F) 07/03/2025 12:53 PM LEGAL INVESTIGATOR Respiratory Rate 16 07/03/2025 1:17 PM LEGAL INVESTIGATOR Oxygen Saturation 100% 07/03/2025 1:17 PM LEGAL INVESTIGATOR Inhaled Oxygen Concentration - - Weight 76.2 kg (168 lb) 06/07/2025 11:57 AM LEGAL INVESTIGATOR Height 180.3 cm (5' 11 ) 06/07/2025 11:57 AM LEGAL INVESTIGATOR Body Mass Index 23.43 06/07/2025 11:57 AM LEGAL INVESTIGATOR Plan of Treatment Upcoming Encounters Date Type Department Care Team (Late st Contact Info) Description 07/31/2025 1:50 PM LEGAL INVESTIGATOR Appointment [facility] Pain Management Procedures [place] [address] [place] [phone] Baldo Blas MD [address] [place] [address] 03/19/2026 10:00 AM CDT Office Visit [facility] Gastroenterology- [place] [address] [phone] Josh Sanchez MD [address] [phone] Health Maintenance Due Date Last Done Comments [place] Preventative Visit/Annual Wellness Visit 08/03/2024 INFLUENZA VACCINE (#1) 2025 DTAP/TDAP/TD VACCINES (8 - T d or Tdap) 10/16/2032 10/16/2022, 10/26/2013, 05/02/2002, Additional history exists HEPATITIS B VACCINES Completed 10/17/1999, 02/07/1999, 01/08/1999 HPV VACCINES (No Doses Required) Completed Procedures Procedure Name Priority Date/Time Associated Diagnosis Comments XR FLUORO NEEDLE PLACEMENT Routine 07/03 1:11 PM LEGAL INVESTIGATOR UPPER ENDOSCOPIC ULTRASOUND REPORT 05/08/2025 2:21 PM CDT TX ESOPHAGOGASTRODUODENOSCOP Y US SCOPE W/ADJ STRXRS 05/08/2025 1:00 PM CDT Z90.411 (ICD-10-CM) - V88.12 (ICD-9-CM) - History of partial pancreatectomy, pancreatic pseudocyst, dilated pancreatic duct, hx of pancreatitis Case Notes EUS PCP Mahamed Sanchez patient Z90.411 (ICD-10-CM) - V88.12 (ICD-9-CM) - History of partial pancreatectomy, pancreatic pseudocyst, dilated pancreatic duct, hx of pancreatitis Home State Medicaid from Last 3 Months Results * XR FLUORO NEEDLE PLACEMENT (07/03/2025 1:11 PM LEGAL INVESTIGATOR) Narrative 07/03/2025 1:14 PM LEGAL INVESTIGATOR Order information only. Exam was auto-finalized. [facility] ORDERABLES Final Result * UPPER ENDOSCOPIC ULTRASOUND REPORT (05/08/2025 2:21 PM CDT) Narrative Procedure Note John Lynch MD - 05/08/2025 2:[address] [facility] Patient Name: Elena Hernandez Procedure Date: [...] satisfactory condition to undergo the procedure. - Felda Protocol: - Pre-procedure Verification: Prior to the [...] Scattered hyperechoic foci with shadowing Based on Stanford criteria findings indeterminant for chronic pancreatitis on [...] Withdrawal Time Scope In: Scope Out: [address] [place], [place] John Lynch MD GI PROCEDURE ORDERABL ES Final Result from Last 3 Months Insurance MEDICAID [facility] DUAL COMPLETE PPO DSNP [facility] [id number] RX INFOCROSSING Medicaid Advance Directives For more information, please contact: [phone] * Full Code (Latest Code Status on [...] 1:02 PM 06/24/2024 12:39 PM Care Teams Clinical Law Professor Relationship Specialty Start Date End Date Mahamed Sales MD [address] [place] [phone] PCP - General Family Practice 06/17/24
--- NOTE | 2025-07-29 06:43 | W.ED.ABDPA2 ---
HPI - Abdominal Pain General: Chief Complaint: Abdominal Pain Stated Complaint: abdominal pain Source: patient and EMS Mode of arrival: EMS Limitations: no limitations History of Present Illness: 39-year-old male is very well-known to the ER history of chronic abdominal pain has had elevated bilirubins in the past. States he is having diffuse abdominal pain rates his pain a 7 out of 10 he denies any vomiting or diarrhea patient does have a history of alcoholism states he has been drinking as well. Denies any worse improving factors Related Data Home Medications ?Medication ?Instructions ?Recorded ?Confirmed aspirin 81 mg chewable tablet 81 mg PO DAILY 06/22/23 07/23/25 (Children's Aspirin) levocetirizine 5 mg tablet 5 mg PO DAILY 10/31/23 07/23/25 pregabalin 25 mg capsule (Lyrica) 25 mg PO DAILY 03/03/24 07/23/25 ondansetron 4 mg disintegrating 4 mg PO Q6H PRN Nausea 04/14/25 07/23/25 tablet ipratropium bromide 21 mcg (0.03 2 spray intranasal TID 06/25/25 07/23/25 %) nasal spray naltrexone microspheres 380 mg 380 mg IM .[id number] 07/23/25 07/23/25 intramuscular suspension,extended release (Vivitrol) Previous Rx's ?Medication ?Instructions ?Recorded pantoprazole 40 mg tablet,delayed 40 mg PO DAILY #10 tabs 01/27/24 release (Protonix) losartan 50 mg tablet 50 mg PO DAILY #30 tabs 04/15/25 sertraline 100 mg tablet 100 mg PO QAM #14 tabs 04/15/25 buspirone 15 mg tablet 30 mg (2 x 15 mg) PO BID #120 tabs 05/22/25 duloxetine 60 mg capsule,delayed 120 mg (2 x 60 mg) PO DAILY #60 05/30/25 release caps mirtazapine 30 mg tablet (Remeron) 30 mg PO .HS #30 tabs 06/09/25 thiamine mononitrate (vit B1) 100 100 mg PO DAILY 30 days #30 tabs 06/29/25 mg tablet (Vitamin B-1 (mononitrate)) atomoxetine 60 mg capsule 60 mg PO DAILY #30 caps 07/10/25 varenicline tartrate 1 mg tablet 1 mg PO BID #56 tabs 07/10/25 (Chantix Continuing Month Box) naproxen 500 mg tablet (Naprosyn) 500 mg PO BID PRN pain #20 tabs 07/13/25 promethazine 25 mg tablet 25 mg PO Q6H PRN nausea and 07/23/25 vomiting #20 tabs sucralfate 1 gram tablet (Carafate) 1 g PO Q6H PRN stomach upset/pain 07/23/25 #40 tabs Allergies Allergy/AdvReac Type Severity Reaction Status Date / Time acamprosate Allergy Intermediate ADR-Depress Verified 07/23/25 06:11 ion piperacillin (From Zosyn) Allergy ADR-Swelling Verified 07/23/25 06:11 of the Eye tazobactam (From Zosyn) Allergy ADR-Swelling Verified 07/23/25 06:11 of the Eye Review of Systems GI: Reports: abdominal pain [facility] ED PFSH: Medical History Acute pancreatitis without infection or necrosis, unspecified pancreatitis type Alcohol use disorder, severe, dependence History of ADHD Alcohol use disorder, moderate, dependence Generalized anxiety disorder Cannabis use disorder Pseudocyst, pancreas Abdominal pain Drug allergy Acute chest wall pain Acute pancreatitis Psychiatric care Tobacco use Hypomagnesemia Hepatomegaly Transaminitis Alcohol intoxication Alcoholism Esophagitis Alcohol intoxication Acute pancreatitis Pseudocyst of pancreas Polysubstance abuse History of suicide attempt C7 cervical fracture C2 cervical fracture L4 vertebral fracture Alcohol abuse PTSD (post-traumatic stress disorder) Elevated transaminase level Pancreatitis, alcoholic, acute Surgical History History of appendectomy History of splenectomy Family History Other Diabetes Social History Smoking and tobacco/nicotine status: current every day tobacco/nicotine user (3 1/2 ppd X 23 years) Alcohol intake: current Alcohol intake frequency: 3 or more drinks per day Alcohol type: hard liquor Substance/Drug Use: current Substance/Drug use frequency: daily Adopted: No Caregiver/support person: No Lives independently: No Household members: significant other Marital status: Number of children: 4 Highest education level completed: 12th Grade, No Diploma Current occupational status: unemployed Pets and animals: Yes Leisure activites: other Leisure activities details: None at this time Sexually active: Yes Do you think of yourself as: Straight/Heterosexual Current gender identity: Male Mary Lou/Sabianism: Religious Special mary lou needs: No Agree to transfusion: Yes Physical Exam Const: COMMON NORMALS: patient oriented x3 HENMT: COMMON NORMALS: normocephalic and atraumatic HEAD & SCALP: normocephalic and atraumatic Eye: COMMON NORMALS: Equal, round and reactive pupils present and EOMs intact bilaterally PUPIL: Yes Equal, round and reactive pupils present Neck/C-Spine: COMMON NORMALS: full ROM and supple Chest: COMMONS NORMALS: normal inspection of the chest and normal palpation of entire chest wall Resp: COMMON NORMALS: normal respiratory effort, No retractions, No use of accessory muscles and clear to auscultation bilaterally AUSCULTATION: clear to auscultation bilaterally Cardio: COMMON NORMALS: regular rate, regular rhythm and No murmurs present (Cardio) RATE: regular rate RHYTHM: regular rhythm GI: COMMON NORMALS: Normal to inspection, nondistended, normoactive bowel sounds present, Soft to palpation, non-tender and no masses PALPATION: Yes Soft to palpation Extremity: COMMON NORMALS: normal to inspection and full ROM Neuro: COMMON NORMALS: patient oriented x3, moves all extremities and no focal motor deficits Psych: COMMON NORMALS: mental status grossly normal, Normal thought process present and cooperative THOUGHT PROCESS: Normal thought process present Skin: COMMON NORMALS: no rashes or lesions noted and no wounds NARRATIVE SKIN EXAM: jaundiced GENERAL SKIN EXAM: no rashes or lesions noted Course Vital Signs: Vital signs: Vital Signs Temperature 98.2 F 07/29/25 06:34 Pulse Rate 94 07/29/25 08:30 Respiratory Rate 17 07/29/25 06:47 Blood Pressure 124/83 07/29/25 08:30 Pulse Oximetry 99 07/29/25 08:30 Oxygen Delivery Me thod Room Air 07/29/25 06:34 MDM - Abdominal Pain Medical Decision Making 39-year-old male here with abdominal pain does have a history of chronic abdominal pain differential includes appendicitis, diverticulitis, pancreatitis. Patient does have an elevated bilirubin here he did test positive for hepatitis B is likely causing his elevated LFTs and bilirubin. CT showed no signs of pancreatitis does have a chronic pancreas pseudocyst. I do not believe that his bilirubin is due to a blockage of his common bile duct is likely due to the hepatitis B. He is to follow-up with his PCP to monitor his bilirubin return if worsening he understands agrees to plan his pain is much improved at discharge and exam is benign Medical Records I reviewed the patient's medical records. Lab Data I reviewed the patient's lab results. 07/29/25 06:41 07/29/25 06:41 Labs/Radiology: Radiology Impressions Abdomen/Pelvis CT 07/29/25 07:29 IMPRESSION: 1. Interval enlargement of previously defined circumscribed cyst within the head of the pancreas. Again this likely represents a large pseudocyst. 2. Mild intrahepatic periportal and extrahepatic biliary dilatation. Consider repeat MRCP/ERCP to evaluate for pseudocyst compression in the region of the ampulla of Vater. There is no CT evidence of ductal calcification. COMMENTS: Consistent with the [employer]'s Incidental Findings Committee white paper (J Am Ruth Radiol 2018): Any incidental renal lesion less than 1 cm or classified as too small to characterize, or any incidental cystic renal lesion characterized as simple-appearing, is likely benign. No follow-up imaging is recommended for these lesions per consensus recommendations based on imaging criteria. Laboratory Results WBC 10.62 10^3/uL (3.29-11.43) 07/29/25 06:41 RBC 3.62 10^6/uL (3.85-5.65) L 07/29/25 06:41 Hgb 12.10 g/dL (11.27-16.99) 07/29/25 06:41 Hct 32.4 % (37-53) L 07/29/25 06:41 MCV 89.5 fl (82-101) 07/29/25 06:41 MCH 33.4 pg (27-33) H 07/29/25 06:41 MCHC 37.3 g/dL (30-55) 07/29/25 06:41 RDW 18.6 % (12.1-15.1) H 07/29/25 06:41 Plt Count 565 10^3/cmm (157-399) H 07/29/25 06:41 MPV 10.3 fL (7.4-10.4) 07/29/25 06:41 Neut % (Auto) 60.6 % 07/29/25 06:41 Lymph % (Auto) 22.0 % 07/29/25 06:41 Martin % (Auto) 10.7 % 07/29/25 06:41 Eos % (Auto) 4.7 % 07/29/25 06:41 Baso % (Auto) 0.8 % 07/29/25 06:41 Neut # (Auto) 6.43 10^3/uL (1.8-7.7) 07/29/25 06:41 Lymph # (Auto) 2.3 10^3/uL (0.8-4.8) 07/29/25 06:41 Martin # (Auto) 1.1 10^3/uL (0.2-0.9) H 07/29/25 06:41 Eos # (Auto) 0.5 10^3/uL (0.0-0.8) 07/29/25 06:41 Baso # (Auto) 0.1 10^3/uL (0.0-0.1) 07/29/25 06:41 Nucleated RBC % (auto) 0 % 07/29/25 06:41 Nucleated RBCs # 0.0 /100WBC 07/29/25 06:41 PT 13.20 SECONDS (12.1-14.9) 07/29/25 06:41 INR 0.93 (0.8-1.2) 07/29/25 06:41 Sodium 132 mmol/L (136-145) L 07/29/25 06:41 Potassium 4.4 mmol/L (3.5-5.1) 07/29/25 06:41 Chloride 94 mmol/L (98-107) L 07/29/25 06:41 Carbon Dioxide 26 mmol/L (22-29) 07/29/25 06:41 Anion Gap 16.4 (5-19) 07/29/25 06:41 BUN 6 mg/dL (6-20) 07/29/25 06:41 Creatinine 0.5 mg/dL (0.7-1.2) L 07/29/25 06:41 GFR Calculation 186.1 mL/min (90-130) H 07/29/25 06:41 Glucose 206 mg/dL (65-115) H 07/29/25 06:41 Calculated Osmolality 278 mOsm/kg (285-295) L 07/29/25 06:41 Calcium 9.6 mg/dL (8.5-10.5) 07/29/25 06:41 Total Bilirubin 17.9 mg/dL (0.15-1.2) H* 07/29/25 06:41 AST 117 U/L (0-40) H 07/29/25 06:41 ALT 262 U/L (0-41) H 07/29/25 06:41 Alkaline Phosphatase 2017 U/L (40-130) H* 07/29/25 06:41 Total Protein 7.1 g/dL (6.6-8.7) 07/29/25 06:41 Albumin 3.7 g/dL (3.5-5.2) 07/29/25 06:41 Globulin 3.4 g/dL (1.3-4.6) 07/29/25 06:41 Lipase 32 U/L (13-60) 07/29/25 06:41 Hepatitis A IgM Ab Non-reactive (Nonreactive) 07/29/25 06:41 Hep Bs Antigen Non-reactive (Nonreactive) 07/29/25 06:41 Hep Bs Antibody > 1000.0 (11.5-1000) H 07/29/25 06:41 Hep B Core Total Ab Non-reactive (Nonreactive) 07/29/25 06:41 Hepatitis C Antibody Non-reactive (Nonreactive) 07/29/25 06:41 All radiology interpretation(s) finalized by discharge Discharge Plan Discharge Patient Disposition: Home Clinical Impression: Abdominal pain, Hepatitis B, Elevated bilirubin Condition: Stable Prescriptions: No Action aspirin [Children's Aspirin] 81 mg tablet,chewable 81 mg PO DAILY pregabalin [Lyrica] 25 mg capsule 25 mg PO DAILY buspirone 15 mg tablet 30 mg PO BID Qty: 120 2RF duloxetine 60 mg capsule,delayed release(DR/EC) 120 mg PO DAILY Qty: 60 1RF mirtazapine [Remeron] 30 mg tablet 30 mg PO .HS Qty: 30 2RF atomoxetine 60 mg capsule 60 mg PO DAILY Qty: 30 2RF varenicline tartrate [Chantix Continuing Month Box] 1 mg tablet 1 mg PO BID Qty: 56 2RF levocetirizine 5 mg tablet 5 mg PO DAILY ipratropium bromide 21 mcg (0.03 %) spray,non-aerosol 2 spray INTRANASAL TID thiamine mononitrate (vit B1) [Vitamin B-1 (mononitrate)] 100 mg Tablet 100 mg PO DAILY 30 Days Qty: 30 0RF pantoprazole [Protonix] 40 mg tablet,delayed release (DR/EC) 40 mg PO DAILY Qty: 10 0RF ondansetron 4 mg tablet,disintegrating 4 mg PO Q6H PRN (Reason: Nausea) sertraline 100 mg Tablet 100 mg PO QAM Qty: 14 0RF Rx Instructions: Take 100 mg for 1 week, then take 50 mg for 1 week, then take 25 mg for 1 week then stop losartan 50 mg tablet 50 mg PO DAILY Qty: 30 0RF naproxen [Naprosyn] 500 mg tablet 500 mg PO BID PRN (Reason: pain) Qty: 20 0RF Vivitrol 380 mg suspension,extended rel recon 380 mg IM .[id number] sucralfate [Carafate] 1 gram tablet 1 g PO Q6H PRN (Reason: stomach upset/pain) Qty: 40 0RF promethazine 25 mg tablet 25 mg PO Q6H PRN (Reason: nausea and vomiting) Qty: 20 0RF Discharge Orders: Discharge ED (Routine); Ordered 07/29/25 Ordered By: Hannah Feliciano Referrals: Mahamed Sales MD [Primary Care Provider, Family Practice] - 4-7 days Discharge Diet: Advance as tolerated Discharge Activity: Resume usual activity Patient Instructions: Hepatitis B (ED), Abdominal Pain (ED) Print Language: Algerian Coding Level of Care Code ED Clinical Unit Coordinator for Marko Avery
[2025-07-29] MEDS: ondansetron 2 mg/ML SDV 2 mL 4 MG IVP (06:47)
[2025-07-29] MEDS: morphine 4 mg/mL SDV 1 mL IVP (06:47)
[2025-07-29 06:52] LABS: Hematocrit 32.4 % (37-53); Hemoglobin 12.10 g/dL (11.27-16.99); Mean Corpuscular HGB Conc 37.3 g/dL (30-55); Mean Corpuscular Hemoglobin 33.4 pg (27-33); Mean Corpuscular Volume 89.5 fl (82-101); Nucleated Red Blood Cells % 0 %; Platelet Count 565 10^3/cmm (157-399); Red Blood Count 3.62 10^6/uL (3.85-5.65); White Blood Count 10.62 10^3/uL (3.29-11.43)
[2025-07-29 06:59] LABS: INR 0.93 (0.8-1.2); Prothrombin Time 13.20 SECONDS (12.1-14.9)
[2025-07-29 07:14] LABS: Alanine Aminotransferase 262 U/L (0-41); Albumin Level 3.7 g/dL (3.5-5.2); Anion Gap 16.4 (5-19); Aspartate Amino Transferase 117 U/L (0-40); Blood Urea Nitrogen 6 mg/dL (6-20); Calcium 9.6 mg/dL (8.5-10.5); Carbon Dioxide 26 mmol/L (22-29); Chloride 94 mmol/L (98-107); Globulin 3.4 g/dL (1.3-4.6); Glucose 206 mg/dL (65-115); Lipase 32 U/L (13-60); Osmolality Calculated 278 mOsm/kg (285-295); Potassium 4.4 mmol/L (3.5-5.1); Sodium 132 mmol/L (136-145); Total Protein 7.1 g/dL (6.6-8.7)
[2025-07-29 07:29] LABS: Alkaline Phosphatase 2017 U/L (40-130)
--- NOTE | 2025-07-29 07:29 | CTR_ITS ---
PROCEDURE INFORMATION: Exam: CT Abdomen And Pelvis With Contrast Exam date and time: 07/29/2025 7:39 AM Age: 39 years old Clinical indication: Other: Jaundice; Abdominal pain; Localized; Upper; Prior surgery; Surgery date: 6+ months; Surgery type: Spleen; Additional info: Elevated bilirubin TECHNIQUE: Imaging protocol: Computed tomography of the abdomen and pelvis with contrast. Radiation optimization: All CT scans at this facility use at least one of these dose optimization techniques: automated exposure control; mA and/or kV adjustment per patient size (includes targeted exams where dose is matched to clinical indication); or iterative reconstruction. Contrast material: OMNIPAQUE 350; Contrast volume: 100 ml; Contrast route: INTRAVENOUS (IV); COMPARISON: MR MRCP [id number] 06/27/2025 12:32 PM RADIATION DOSE METRICS: Total DLP (mGy-cm): 459.57 FINDINGS: Lungs: The lung bases are clear. Liver: There remains mild periportal intrahepatic biliary dilatation. Gallbladder and biliary ducts: The extrahepatic biliary duct measures 9 mm today. Pancreas: The large cyst within the head of the pancreas today measures 6.6 x 6.5 cm where previously measured 5.1 x 4.[address] remeasured. There remains main pancreatic duct dilatation throughout the body and tail of the pancreas. The enlargement of the head of the pancreas related to the pancreatic head cyst distorts the course of the C-loop of the duodenum. There is no significant peripancreatic fat stranding. Spleen: Splenectomy. Adrenal glands: Normal. No mass. Kidneys and ureters: Small subcentimeter cortical hypodensity within the left kidney is too small to accurately characterize but statistically most likely represents a cyst. Stomach and bowel: Unremarkable. The small and large bowel are normal in caliber. Appendix: No evidence of appendicitis. Intraperitoneal space: Unremarkable. No free air. No significant fluid collection. Vasculature: Unremarkable. No abdominal aortic aneurysm. Lymph nodes: Unremarkable. No enlarged lymph nodes. Urinary bladder: The bladder is incompletely distended. Reproductive: Unremarkable as visualized. Bones/joints: Unremarkable. No acute fracture. Soft tissues: Unremarkable. CT/CT abdomen pelvis w con* [id number] IMPRESSION: 1. Interval enlargement of previously defined circumscribed cyst within the head of the pancreas. Again this likely represents a large pseudocyst. 2. Mild intrahepatic periportal and extrahepatic biliary dilatation. Consider repeat MRCP/ERCP to evaluate for pseudocyst compression in the region of the ampulla of Vater. There is no CT evidence of ductal calcification. COMMENTS: Consistent with the [employer] [employer]'s Incidental Findings Committee white paper (J Am Ruth Radiol 2018): Any incidental renal lesion less than 1 cm or classified as too small to characterize, or any incidental cystic renal lesion characterized as simple-appearing, is likely benign. No follow-up imaging is recommended for these lesions per consensus recommendations based on imaging criteria.
[2025-07-29 07:42] LABS: Hepatitis A Antibody IgM Non-Reactive (Nonreactive); Hepatitis B Surface Antigen Non-Reactive (Nonreactive)
[2025-07-29] MEDS: iohexol 350 mg/mL 500 mL Btl (per mL) IV (07:43)
== END 2025-07-29 08:47 | disposition home or self-care (01) ==
PROVIDERS: Emergency Provider Emergency Medicine; PCP Family Medicine
DX: R10.9 Unspecified abdominal pain (principal); B19.10 Unspecified viral hepatitis B without hepatic coma; E80.7 Disorder of bilirubin metabolism, unspecified; Z79.82 Long term (current) use of aspirin; F17.210 Nicotine dependence, cigarettes, uncomplicated
CPT/HCPCS: 74177; 80053; 83690; 85025; 85610; 86705; 86706; 86709; 86803; 87340; 96374; 96375; 99285; J2270; J2405